=== PATIENT | female | born 1940 | race Caucasian/White ===

== ENCOUNTER 2017-02-09 10:07 | Day surgery (SDC) | payer OTHER ==
[2017-02-08 12:41] VITALS: BMI 23.8
[2017-02-09 11:05] LABS: BASOPHIL 1.1 % (0-2.0); EOSINOPHIL 1.8 % (0-4.5); MCH 29.9 pg (25.7-33.7); MCHC 33.5 g/dl (32.0-36.0); MEAN CELL VOLUME 89.4 fl (80-96); MEAN PLT VOLUME 8.5 fl (7.5-11.1); NEUTROPHILS 62.7 % (42.8-82.8); PLATELET COUNT 257 K/MM3 (134-434); RDW 13.7 % (11.6-15.6); WHITE BLOOD COUNT 7.4 K/mm3 (4.0-10.0)
[2017-02-09 11:24] VITALS: TEMP 98.5
[2017-02-09 11:32] LABS: INR 0.97 (0.82-1.09); PROTHROMBIN TIME (PATIENT) 10.7 SEC (9.98-11.88)
[2017-02-09] MEDS ORDERED: ACETAMINOPHEN 325 MG TABLET (FP) PO ONE (12:40)
[2017-02-09 15:15] VITALS: BP 122/77; PULSE 89
--- NOTE | 2017-02-11 15:24 | PATH ---
Surgical Pathology Report Patient Name: MYRNA TRACEY [facility]. Rec. #: [id number] /Age/Gender: 1940 (Age: 76) / F Account: [id number] Location: RADIOLOGY Taken: 02/09/2017 Received: 02/09/2017 Reported: 02/11/2017 Physicians: Joshua Vega M.D. Santiago Green M.D. Specimen(s) Received LEFT LUNG BIOPSY Clinical History Left lung mass Final Diagnosis LUNG, LEFT, CT GUIDED CORE BIOPSY: NON-SMALL CELL CARCINOMA, MOST SONSISTENTWITH SQUAMOUS CELL CARCINOMA, MODERATELY DIFFERENTIATED (SEE COMMENT). Comment: Immunohistochemical stains performed and interpreted at [facility] show the tumor cells are positive for p63 immunostain; TTF1 and CK7 immunostain highlights focal glandular-like structures; an additional immunohistochemical stain for p40 performed at [place], [place] ([id number]) and interpreted at [facility] is positive in tumor cells. The morphologic findings and immune profile was non-small cell carcinoma, most consistent with squamous cell carcinoma, moderately differentiated. Comment: The case was discussed with Dr. Truong on 02/11/17. PD-L1 (Keytruda) IHC is pending; results will be reported in an addendum. Electronically Signed Сергей Parks M.D. Addendum Reported: 02/16/2017 Addendum Diagnosis PD-L1 (Keytruda) IHC, Clone 22C3 Pharm Dx performed and interpreted at [facility] [place], [place] ([id number]) Result: PD-L1 (Keytruda) TPS: 0% (No Expression) Reference Range: TPS=Tumor Proportion Score (% of at least 100 viable tumor cells showing complete or partial membrane staining at =1+) TPS< 1% =No Expression TPS 1-49% =Low Expression. TPS =50% =High Expression. The PD-L1, 22C3 pharmDx is FDA approved for use in the detection of PD-L1 in formalin-fixed paraffin-embedded non-small cell lung carcinoma using the [employer] platform. The assay is indicated as an aid in identifying NSCLC patients for treatment with Keytruda (pembrolizumab). Сергей Charly, M.D. Gross Description Received in formalin labeled "lung biopsy" are 3 whitley, cylindrical portions of soft tissue ranging from 1.0-1.5 cm in length and averaging 0.1 cm in diameter. The specimens are submitted in toto in one cassette. 02/09/201702/09/2017
== END 2017-02-09 15:15 | disposition home or self-care (01) ==
LOC: JRADIR 10:07
PROVIDERS: ATTEND Family Medicine
PROC: 0BBL3ZX Excision of Left Lung, Percutaneous Approach, Diagnostic (ICD-10-PCS; principal; 2017-02-09)
PROC: BB28ZZZ Computerized Tomography (CT Scan) of Left Tracheobronchial Tree (ICD-10-PCS; 2017-02-09)
DX: C34.92 Malignant neoplasm of unspecified part of left bronchus or lung (principal)
CPT/HCPCS: 32405; 36415; 71010-TC; 76098-TC; 77012-TC; 85025; 85610; 87899; 88305-TC; 88341-TC; 88342-TC

== ENCOUNTER 2017-02-22 10:07 | Inpatient (IN) | payer OTHER ==
--- NOTE | 2017-02-22 10:23 | PDOC ---
History of Present Illness - General Chief Complaint: Shortness of Breath Stated Complaint: SOB (PCP SENT) Time Seen by Provider: 02/22/17 10:21 - History of Present Illness Initial Comments: 02/22/17 10:22 Ms. Mckeon is a 76 year old female, with a significant past medical history of, who presents to the emergency department per PCP for admit to med surg for lung surgery to remove malignant tumor /mass found on biopsy. Additionally she has a stable 5.7 cm AAA. The patient denies chest pain, shortness of breath, headache and dizziness. Denies fever, chills, nausea, vomit, diarrhea and constipation. Denies dysuria, frequency, urgency and hematuria. Allergies: NKDA Past surgical history: Biopsy for lung mass Social history: 90+ smoking pack year history PMD - Viet Hudson Past History - Past Medical History Allergies/Adverse Reactions: Allergies Allergy/AdvReac Type Severity Reaction Status Date / Time No Known Allergies Allergy Verified 02/22/17 10:14 Home Medications: Ambulatory Orders Ranitidine [Zantac] 150 mg PO DAILY #0 tablet 06/04/12 Acetaminophen [Tylenol] 325 mg PO PRN PRN 02/08/17 Amlodipine Besylate 10 mg PO DAILY 02/08/17 Umeclidinium Brm/Vilanterol Tr [Anoro Ellipta 62.5-25 Mcg INH] 1 each IH DAILY 02/08/17 Anemia: Yes Asthma: No Cancer: Yes Cardiac Disorders: Yes (TACHYCARDIA ONCE;BBB) CVA: No COPD: Yes Dementia: No Diabetes: No GI Disorders: Yes (DIVERTICULITIS) Disorders: No HTN: Yes Hypercholesterolemia: Yes Liver Disease: No Suicide Attempt (Hx): No Seizures: No Thyroid Disease: No - Surgical History Abdominal Surgery: No Appendectomy: No Cardiac Surgery: No Cholecystectomy: No Lung Surgery: No Neurologic Surgery: No Orthopedic Surgery: No - Immunization History Td Vaccination: Yes Immunization Up to Date: Yes - Psycho/Social/Smoking Cessation Hx Anxiety: No Suicidal Ideation: No Smoking Status: Yes Smoking History: Current every day smoker Have you smoked in the past 12 months: Yes Number of Cigarettes Smoked Daily: 5 If you are a former smoker, when did you quit?: 1 week ago Information on smoking cessation initiated: No 'Breaking Loose' booklet given: 02/08/17 Hx Alcohol Use: Yes Drug/Substance Use Hx: No Substance Use Type: Alcohol Hx Substance Use Treatment: No Review of Systems - Review of Systems Comments:: 02/22/17 10:22 GENERAL/CONSTITUTIONAL: +Some weakness. No fever or chills. HEAD, EYES, EARS, NOSE AND THROAT: No change in vision. No ear pain or discharge. No sore throat. CARDIOVASCULAR: No chest pain or shortness of breath RESPIRATORY: No cough, wheezing, or hemoptysis. GASTROINTESTINAL: +Some recent nausea, vomiting, with diarrhea yesterday. No constipation. GENITOURINARY: No dysuria, frequency, or change in urination. MUSCULOSKELETAL: No joint or muscle swelling or pain. No neck or back pain. SKIN: No rash NEUROLOGIC: No headache, vertigo, loss of consciousness, or change in strength/ sensation. ENDOCRINE: No increased thirst. No abnormal weight change HEMATOLOGIC/LYMPHATIC: No anemia, easy bleeding, or history of blood clots. ALLERGIC/IMMUNOLOGIC: No hives or skin allergy. *Physical Exam - Vital Signs Last Vital Signs Temp Pulse Resp BP Pulse Ox 97.7 F 78 18 117/54 98 02/22/17 10:09 02/22/17 10:09 02/22/17 10:09 02/22/17 10:09 02/22/17 10:09 - Physical Exam Comments: 02/22/17 10:22 GENERAL: Awake, alert, and fully oriented, in no acute distress HEAD: No signs of trauma, normocephalic, atraumatic EYES: PERRLA, EOMI, sclera anicteric, conjunctiva clear ENT: Auricles normal inspection, hearing grossly normal, nares patent, oropharynx clear without exudates. Moist mucosa NECK: Normal ROM, supple, no lymphadenopathy, JVD, or masses LUNGS: No distress, speaks full sentences, clear to auscultation bilaterally HEART: Regular rate and rhythm, normal S1 and S2, no murmurs, rubs or gallops, peripheral pulses normal and equal bilaterally. ABDOMEN: Soft, nontender, normoactive bowel sounds. No guarding, no rebound. No masses EXTREMITIES: Normal inspection, Normal range of motion, no edema. No clubbing or cyanosis. NEUROLOGICAL: Cranial nerves II through XII grossly intact. Normal speech, normal gait, no focal sensorimotor deficits SKIN: Warm, Dry, normal turgor, no rashes or lesions noted. Medical Decision Making - Medical Decision Making 02/22/17 10:54 Ms. Mckeon presents for admission from Dr. Hudson for care for malignant lung mass and 5.7cm AAA. Tristan requests workup of CBC/CMP/PT/INR/Type and Screen/ Echocardiogram. Will work-up as requested and admit. *DC/Admit/Observation/Transfer Diagnosis at time of Disposition: Malignant neoplasm of lung Qualifiers: Laterality: unspecified laterality Lung location: unspecified part of lung Qualified Code(s): C34.90 - Malignant neoplasm of unspecified part of unspecified bronchus or lung - Discharge Dispostion Admit: Yes - Attestations Physician Attestion: 02/22/17 10:22 I, Dr. Bubba Patricio, attest that this document has been prepared under my direction and personally reviewed by me in its entirety. I further attest, that it accurately reflects all work, treatment, procedures and medical decision -making performed by me.
[2017-02-22 11:27] LABS: BASOPHIL 0.5 % (0-2.0); EOSINOPHIL 1.2 % (0-4.5); MCHC 33.2 g/dl (32.0-36.0); MEAN CELL VOLUME 90.6 fl (80-96); MEAN PLT VOLUME 7.7 fl (7.5-11.1); NEUTROPHILS 68.5 % (42.8-82.8); PLATELET COUNT 208 K/MM3 (134-434); RDW 13.9 % (11.6-15.6); WHITE BLOOD COUNT 8.5 K/mm3 (4.0-10.0)
[2017-02-22 11:42] LABS: INR 0.95 (0.82-1.09); PROTHROMBIN TIME (PATIENT) 10.4 SEC (9.98-11.88)
[2017-02-22 11:44] LABS: ACTIVATED PTT 28.2 SECONDS (26.9-34.4)
[2017-02-22 11:49] LABS: ALBUMIN 3.7 g/dl (3.4-5.0); ANION GAP 10 (8-16); CALCIUM 8.7 mg/dL (8.5-10.1); CO2 25 mmol/L (21-32); CREATININE 3.3 mg/dL (0.55-1.02); GLUCOSE,RANDOM 102 mg/dL (74-106); SGOT/AST 10 U/L (15-37); SGPT/ALT 16 U/L (12-78)
[2017-02-22 11:51] LABS: ALK PHOS 90 U/L (45-117); BILIRUBIN,TOTAL 0.4 mg/dL (0.2-1.0); TOT PROT 7.5 g/dl (6.4-8.2)
[2017-02-22 12:28] VITALS: BMI 23.7
--- NOTE | 2017-02-22 12:33 | PDOC ---
Attending Attestation - Resident Resident Name: Bubba Patricio - ED Attending Attestation I have performed the following: I have examined & evaluated the patient, The case was reviewed & discussed with the resident, I agree w/resident's findings & plan, Exceptions are as noted - HPI HPI: 02/22/17 12:29 76 F with h/o AAA, HTN, CKD, recently diagnosed lung mass, presents to ER for admission to hospital for lung surgery. Pt denies CP/SOB. Denies F/C. Denies any complaints today. - Physicial Exam PE: 02/22/17 12:32 "GENERAL: Awake, alert, and fully oriented, in no acute distress HEAD: No signs of trauma EYES: PERRLA, EOMI, sclera anicteric, conjunctiva clear ENT: Auricles normal inspection, hearing grossly normal, nares patent, oropharynx clear without exudates. Moist mucosa NECK: Normal ROM, supple, no lymphadenopathy, JVD, or masses LUNGS: Breath sounds equal, clear to auscultation bilaterally. No wheezes, and no crackles HEART: Regular rate and rhythm, normal S1 and S2, no murmurs, rubs or gallops ABDOMEN: Soft, nontender, normoactive bowel sounds. No guarding, no rebound. No masses EXTREMITIES: Normal range of motion, no edema. No clubbing or cyanosis. No cords, erythema, or tenderness NEUROLOGICAL: Cranial nerves II through XII grossly intact. Normal speech, normal gait SKIN: Warm, Dry, normal turgor, no rashes or lesions noted. " - Medical Decision Making 02/22/17 12:32 76 F sent in for admission for resection of lung mass. To be admitted to Dr. Truong. - Labs - Admit
[2017-02-22] MEDS ORDERED: ALBUTEROL SO4 2.5/IPRATROPIUM 0.5 INH SOL 3 ML VIAL.NEB. NEB PRN (14:47)
--- NOTE | 2017-02-22 14:54 | HP ---
Admitting History and Physical - Primary Care Physician PCP: Kanchan Truong - Admission Chief Complaint: LUNG MASS SQUAMOUS CELL, ABD ANEURYSM History of Present Illness: 76 Y/O FEMALE WITH HISTORY OF COPD, CHRONIC RENAL FAILURE, ABD ANEURYSM FOUND WITH LUNG MASS LEFT SIDED THAT WAS BIOPSIED AND RETURNED A SQUAMOUS CELL CANCER. ADMITTED FOR POSSIBLE LUNG RESECTION AND ONCOLOGY WORKUP. History Source: Patient, Medical Record - Past Medical History Cardiovascular: Yes: Aneurysm Pulmonary: Yes: COPD, Other (LUNG MASS) Gastrointestinal: Yes: GERD Renal/: Yes: Renal Failure Rheumatology: Yes: Other - Smoking History Smoking history: Current every day smoker Have you smoked in the past 12 months: Yes Aproximately how many cigarettes per day: 5 If you are a former smoker, when did you quit?: 1 week ago - Alcohol/Substance Use Hx Alcohol Use: Yes Home Medications - Allergies Allergies/Adverse Reactions: Allergies Allergy/AdvReac Type Severity Reaction Status Date / Time No Known Allergies Allergy Verified 02/22/17 10:14 - Home Medications Home Medications: Ambulatory Orders Acetaminophen [Tylenol] 325 mg PO ASDIR PRN 02/08/17 Amlodipine Besylate 10 mg PO HS 02/08/17 Umeclidinium Brm/Vilanterol Tr [Anoro Ellipta 62.5-25 Mcg INH] 1 each IH DAILY 02/08/17 Ranitidine [Zantac] 150 mg PO DAILY PRN 02/22/17 Review of Systems - Review of Systems Constitutional: reports: Weakness Eyes: reports: No Symptoms HENT: reports: No Symptoms Neck: reports: No Symptoms Cardiovascular: reports: No Symptoms Respiratory: reports: Cough, SOB Gastrointestinal: reports: No Symptoms Genitourinary: reports: No Symptoms Musculoskeletal: reports: No Symptoms Integumentary: reports: No Symptoms Neurological: reports: No Symptoms Endocrine: reports: No Symptoms Hematology/Lymphatic: reports: No Symptoms Physical Examination Vital Signs: Vital Signs Temperature 97.7 F 02/22/17 13:00 Pulse Rate 72 02/22/17 13:00 Respiratory Rate 18 02/22/17 13:00 Blood Pressure 119/49 02/22/17 13:00 O2 Sat by Pulse Oximetry (%) 96 02/22/17 13:00 Constitutional: Yes: Mild Distress Eyes: Yes: WNL HENT: Yes: WNL Neck: Yes: WNL Cardiovascular: Yes: Murmur Respiratory: Yes: Diminished Gastrointestinal: Yes: WNL Renal/: Yes: WNL Musculoskeletal: Yes: Muscle Weakness Extremities: Yes: WNL Edema: No Peripheral Pulses WNL: Yes Integumentary: Yes: WNL Wound/Incision: Yes: Clean/Dry Neurological: Yes: WNL ...Motor Strength: WNL Psychiatric: Yes: WNL Imaging - Results Cat Scan: Report Reviewed Problem List - Problems (1) Lung malignancy Code(s): C34.90 - MALIGNANT NEOPLASM OF UNSP PART OF UNSP BRONCHUS OR LUNG Qualifiers: Laterality: unspecified laterality Lung location: unspecified part of lung Qualified Code(s): C34.90 - Malignant neoplasm of unspecified part of unspecified bronchus or lung (2) COPD (chronic obstructive pulmonary disease) Code(s): J44.9 - CHRONIC OBSTRUCTIVE PULMONARY DISEASE, UNSPECIFIED Qualifiers : COPD type: emphysema (3) Chronic renal disease Code(s): N18.9 - CHRONIC KIDNEY DISEASE, UNSPECIFIED Qualifiers: Chronic kidney disease stage: stage 5, not on chronic dialysis Qualified Code(s): N18.5 - Chronic kidney disease, stage 5 (4) Abdominal aneurysm Code(s): I71.4 - ABDOMINAL AORTIC ANEURYSM, WITHOUT RUPTURE (5) Hypertension Code(s): I10 - ESSENTIAL (PRIMARY) HYPERTENSION Qualifiers: Hypertension type: essential hypertension Qualified Code(s): I10 - Essential (primary) hypertension (6) Tobacco use Code(s): Z72.0 - TOBACCO USE Assessment/Plan CTS REFERRAL FOR POSSIBLE RESECTION COPY OF BIOPSY RESULT NEEDED, SHOWED SQUAMOUS CELL ONCOLOGY EVAL RENAL EVAL ECHO FOR CARDIOLOGY CLEARANCE VASC SX FOR ANEURYSM
--- NOTE | 2017-02-22 16:00 | PN ---
Progress Note (short form) - Note Progress Note: PULMONARY CONSULTATION DICTATED 02/22/17 IMP OSVALDO MASS +SQUAMOUS CELL CA COPD AAA CKD HTN GERD PLAN INHALED BRONCHODILATORS METASTATIC W/U PET SCAN BRAIN MRI PFTS O2 SAT AT REST AND POST EXERCISE ON RA DR CRUZ Problem List - Problems (1) Abdominal aneurysm Code(s): I71.4 - ABDOMINAL AORTIC ANEURYSM, WITHOUT RUPTURE (2) COPD (chronic obstructive pulmonary disease) Code(s): J44.9 - CHRONIC OBSTRUCTIVE PULMONARY DISEASE, UNSPECIFIED Qualifiers : COPD type: emphysema (3) Chronic renal disease Code(s): N18.9 - CHRONIC KIDNEY DISEASE, UNSPECIFIED Qualifiers: Chronic kidney disease stage: stage 5, not on chronic dialysis Qualified Code(s): N18.5 - Chronic kidney disease, stage 5 (4) Hypertension Code(s): I10 - ESSENTIAL (PRIMARY) HYPERTENSION Qualifiers: Hypertension type: essential hypertension Qualified Code(s): I10 - Essential (primary) hypertension (5) Lung malignancy Code(s): C34.90 - MALIGNANT NEOPLASM OF UNSP PART OF UNSP BRONCHUS OR LUNG Qualifiers: Laterality: unspecified laterality Lung location: unspecified part of lung Qualified Code(s): C34.90 - Malignant neoplasm of unspecified part of unspecified bronchus or lung (6) Tobacco use Code(s): Z72.0 - TOBACCO USE
[2017-02-22] MEDS: ACETAMINOPHEN 325 MG TABLET (FP) PO PRN (16:04)
--- NOTE | 2017-02-22 17:22 | CONSULT ---
Consult - text type - Consultation Consultation Note: Thoracic Surgery Consultation: Pt seen with OSVALDO SCC 3cm mass s/p biopsy. Has PMH of ESRD (near HD), still smoking (>100 pack-years), AAA >5cm, but exercise tolerance would likely allow her to tolerate left upper lobectomy. No weight loss or hemoptysis. VSS/AF WD/WN ASA Clear lungs No abd scars Imp/Plan: OSVALDO cancer without obvious LUIS FELIPE --Needs PFTs --Cardiac w/u and clearance --Would recommend PET scan --Moderate risk for complications due to recent active smoking and ESRD --Will d/w Dr. Truong.
--- NOTE | 2017-02-22 18:57 | EKG ---
Test Reason : Blood Pressure : / mmHG Vent. Rate : 072 BPM Atrial Rate : 072 BPM P-R Int : 142 ms QRS Dur : 128 ms QT Int : 404 ms P-R-T Axes : 069 064 044 degrees QTc Int : 442 ms SINUS RHYTHM WITH OCCASIONAL PREMATURE VENTRICULAR COMPLEXES RIGHT BUNDLE BRANCH BLOCK ABNORMAL ECG WHEN COMPARED WITH ECG OF 03-JUN-2012 08:38, SINUS RHYTHM HAS REPLACED ATRIAL FIBRILLATION VENT. RATE HAS DECREASED BY 45 BPM T WAVE INVERSION NOW EVIDENT IN ANTERIOR LEADS Confirmed by KINGSTON DOLL MD ([id number]) on 02/22/2017 6:57:03 PM Referred By: Confirmed By:KINGSTON DOLL MD
--- NOTE | 2017-02-22 19:19 | CONSULT ---
Consult - text type - Consultation Consultation Note: Ms. Mcekon is a 76 year old female, with a significant past medical history of, CKD, AAA, who comes in with OSVALDO mass The patient denies chest pain, shortness of breath, headache and dizziness. Denies fever, chills, nausea, vomit, diarrhea and constipation. Denies dysuria, frequency, urgency and hematuria. c/o rib cage pain Allergies: NKDA Past surgical history: Biopsy for lung mass Social history: 90+ smoking pack year history PMH Anemia Tachycardia COPD Diverticulitis HTN Hypercholesterolemia Allergies/Adverse Reactions: Allergies Allergy/AdvReac Type Severity Reaction Status Date / Time No Known Allergies Allergy Verified 02/22/17 10:14 Home Medications: Ambulatory Orders Ranitidine [Zantac] 150 mg PO DAILY #0 tablet 06/04/12 Acetaminophen [Tylenol] 325 mg PO PRN PRN 02/08/17 Amlodipine Besylate 10 mg PO DAILY 02/08/17 Umeclidinium Brm/Vilanterol Tr [Anoro Ellipta 62.5-25 Mcg INH] 1 each IH DAILY 02/08/17 - Psycho/Social/Smoking Cessation Hx Smoking Status: Yes Smoking History: Current every day smoker - Vital Signs Last Vital Signs Temp Pulse Resp BP Pulse Ox 97.7 F 78 18 117/54 98 02/22/17 10:09 02/22/17 10:09 02/22/17 10:09 02/22/17 10:09 02/22/17 10:09 Cor: RSR, No murmurs, No gallops Lungs: Clear to P&A Abd: Soft, Normal bowel sounds, No organomegaly Ext:No significant edema Skin: No rashes, Integument intact Abnormal Lab Results 02/22/17 10:57 BUN 45 H D Creatinine 3.3 H D AST 10 L D Active Medications Acetaminophen (Tylenol -) 650 mg PO Q6H PRN PRN Reason: FEVER OR PAIN Last Admin: 02/22/17 16:04 Dose: 650 mg Albuterol/Ipratropium (Duoneb -) 1 amp NEB Q6H PRN PRN Reason: SHORTNESS OF BREATH Amlodipine Besylate (Norvasc -) 5 mg PO DAILY ANNA Ranitidine HCl (Zantac -) 150 mg PO BID [facility] Home Medication List Medication Instructions Recorded Confirmed Type Acetaminophen [Tylenol] 325 mg PO ASDIR PRN 02/08/17 02/22/17 History Amlodipine Besylate 10 mg PO HS 02/08/17 02/22/17 History Umeclidinium Brm/Vilanterol Tr 1 each IH DAILY 02/08/17 02/22/17 History [Anoro Ellipta 62.5-25 Mcg INH] Ranitidine [Zantac] 150 mg PO DAILY PRN 02/22/17 02/22/17 History Active Medications Generic Name Dose Route Start Last Admin Trade Name Freq PRN Reason Stop Dose Admin Acetaminophen 650 mg 02/22/17 14:47 02/22/17 16:04 Tylenol - PO 650 mg Q6H PRN Administration FEVER OR PAIN Albuterol/Ipratropium 1 amp 02/22/17 14:47 Duoneb - NEB Q6H PRN SHORTNESS OF BREATH Amlodipine Besylate 5 mg 02/23/17 10:00 Norvasc - PO DAILY ANNA Ranitidine HCl 150 mg 02/22/17 22:00 Zantac - PO BID ANNA A/P 76 y/o patient withCKD, AAA,smoker, OSVALDO mass--3cm,squamous cell lung cancer Will need staging w/u -- PET-CT, bone scan, MRI brain--needs open MRI will need PFTs/stress test mri brain--noncontrast--open mri, as outpatient will need renal f/u vascular consult discussed with patient
--- NOTE | 2017-02-22 19:49 | PN ---
Progress Note (short form) - Note Progress Note: VAscular Surgery Pt well known to our service Pt with 5.4cm AAA However recently diagnosed with Lung CA Will need lobectomy first. CAn wait to fix AAA right now. Low risk for rupture. Lung CA more urgent at this time and life threatening. Josef Qureshi DO
--- NOTE | 2017-02-22 22:03 | CONS ---
DATE OF CONSULTATION: 02/22/2017 PULMONARY CONSULTATION REFERRING PHYSICIAN: Kanchan Truong M.D. HISTORY OF PRESENT ILLNESS: The patient is a 76-year-old white female with a past medical history of COPD, chronic kidney disease, recurrent renal failure, history of abdominal aortic aneurysm, recently diagnosed lung CA left upper lobe, biopsy consistent with squamous cell, GERD, admitted to [facility] for further evaluation of lung mass. Patient the day before was recently noted on chest x-ray to have left upper lobe mass. She underwent a CAT scan which confirmed the diagnosis. She underwent CT biopsy which was positive for squamous cell. Patient complains of shortness of breath with exertion up inclines and rapid pace. Patient has history of tobacco use many years, quit 1 day ago. She has a cough which is nonproductive. She denies any hemoptysis. She denies any fevers, weight loss. Does have occasional night sweats. Denies any chest pains or palpitations. There is no history of occupational exposure to chemicals or fumes. There is no history of DVT or PE in the past. PAST MEDICAL HISTORY: Again includes COPD, chronic renal failure, abdominal aortic aneurysm which his increased in size, left upper lobe mass, GERD, bronchogenic carcinoma squamous cell type. REVIEW OF SYSTEMS: No orthopnea. Positive dyspnea on exertion. Positive cough. No chest pain, no palpitation, no fever, no weight loss. Positive night sweats. No abdominal pain. No lower extremity edema. MEDICATION: Prior to admission include , amlodipine, Tylenol, and Zantac. PHYSICAL EXAMINATION: General: The patient is a well-developed, well-nourished female, awake, alert, in no acute distress. Vital signs: She is afebrile. Blood pressure 119/49, respiratory rate 18, O2 saturation 96% on room air. HEENT: Head is normocephalic, atraumatic. Neck: Supple. Heart: Regular. S1, S2. Chest: Clear. Abdomen: Soft. Bowel sounds positive. Extremities: No cyanosis, edema. LABORATORY: BUN 45, creatinine 3.3. WBC 8.5, hemoglobin 13.2, hematocrit 39.9 with platelet count of 208,000. INR is 0.95. Chest x-ray left upper lobe mass. IMPRESSION: 1. Bronchogenic left upper lobe mass, consistent with bronchogenic carcinoma, squamous cell type. 2. Chronic obstructive lung disease. 3. Abdominal aortic aneurysm. 4. Chronic renal failure. 5. Hypertension. 6. Gastroesophageal reflux disease. PLAN: The patient needs metastatic workup. Recommend possible PET scan, possible MRI of the brain also. PFTs with diffusion capacity. Monitor renal function. Continue inhaled bronchodilators. WEI CRUZ M.D. [id number] MTDD
[2017-02-22] MEDS: amLODIPine BESYLATE 5 MG TABLET (FP) PO SCH (22:14)
[2017-02-22] MEDS: RANITIDINE HCL 150 MG TABLET (FP) PO SCH ×2 (22:14→22:15)
[2017-02-22] MEDS: LORazepam 0.5 MG TABLET PO PRN (23:41)
[2017-02-23] MEDS: RANITIDINE HCL 150 MG TABLET (FP) PO SCH ×3 (09:21→21:26)
[2017-02-23] MEDS: ACETAMINOPHEN 325 MG TABLET (FP) PO PRN (09:22)
[2017-02-23] MEDS ORDERED: amLODIPine BESYLATE 5 MG TABLET (FP) PO SCH (10:00)
--- NOTE | 2017-02-23 13:42 | CON.NEP ---
Consult Consult Specialty:: Nephrology Referred by:: Dr Mccall Reason for Consultation:: ckd - History of Present Illness Chief Complaint: admitted for cancer surgery History of Present Illness: This is a 76 year old woman who is well known to me from several office visists who presented for lung resection since she has a squamous cell ca ( had a recent biopsy of a lesion). She has hypertension and aaa. She has had ckd for many years and it recently worsened and then stabilized again. She had been taking nsaids which may have caused the deterioration. Her AAA is growing as well. - History Source History Provided By: Patient, Medical Record Limitations to Obtaining History: No Limitations - Past Medical History Cardio/Vascular: Yes: Aneurysm Pulmonary: Yes: COPD, Other (LUNG MASS) Gastrointestinal: Yes: GERD Renal/: Yes: Renal Failure Rheumatology: Yes: Other - Alcohol/Substance Use Hx Alcohol Use: Yes - Smoking History Smoking history: Current every day smoker Have you smoked in the past 12 months: Yes Aproximately how many cigarettes per day: 5 If you are a former smoker, when did you quit?: 1 week ago Home Medications - Allergies Allergies/Adverse Reactions: Allergies Allergy/AdvReac Type Severity Reaction Status Date / Time No Known Allergies Allergy Verified 02/22/17 10:14 - Home Medications Home Medications: Ambulatory Orders Acetaminophen [Tylenol] 325 mg PO ASDIR PRN 02/08/17 Amlodipine Besylate 10 mg PO HS 02/08/17 Umeclidinium Brm/Vilanterol Tr [Anoro Ellipta 62.5-25 Mcg INH] 1 each IH DAILY 02/08/17 Ranitidine [Zantac] 150 mg PO DAILY PRN 02/22/17 Review of Systems - Review of Systems Constitutional: reports: Unintentional Wgt. Loss Eyes: reports: No Symptoms HENT: reports: No Symptoms Neck: reports: No Symptoms Cardiovascular: reports: Shortness of Breath Respiratory: reports: Cough Gastrointestinal: reports: No Symptoms Genitourinary: reports: No Symptoms Breasts: reports: No Symptoms Reported Musculoskeletal: reports: No Symptoms Integumentary: reports: No Symptoms Neurological: reports: No Symptoms Endocrine: reports: No Symptoms Hematology/Lymphatic: reports: No Symptoms Psychiatric: reports: No Symptoms Nephrology Consult - Height Height: 5 ft 6 in - Weight Weight: 147 lb - BMI Body Mass Index (BMI): 23.7 - Lab Results CBC,BMP: CBC, BMP 02/22/17 10:57 02/22/17 10:57 Anion Gap: Anion Gap Anion Gap 10 (8-16) 02/22/17 10:57 - Imaging Chest X-ray: Report Reviewed - Physical Examination Vital Signs: Vital Signs Temperature 98.3 F 02/23/17 11:39 Pulse Rate 69 02/23/17 11:39 Respiratory Rate 18 02/23/17 11:39 Blood Pressure 133/59 02/23/17 11:39 O2 Sat by Pulse Oximetry (%) 97 02/23/17 09:00 Constitutional: Yes: Thin Eyes: Yes: Conjunctiva Clear HENT: Yes: Atraumatic, Normocephalic Neck: Yes: Supple, Trachea Midline Cardiovascular: Yes: Regular Rate and Rhythm Respiratory: Yes: Regular, CTA Bilaterally Gastrointestinal: Yes: Normal Bowel Sounds, Soft Renal/: Yes: WNL Edema: No Integumentary: Yes: WNL Wound/Incision: Yes: Clean/Dry Neurological: Yes: Alert, Oriented Psychiatric: Yes: Alert, Oriented Assessment/Plan IMPRESSION COLE improved ckd AAA enlarging PLAN would continue current management await work up- cardiology/pulmonary avoid nephrotoxins and hypotension would hydrate perioperatively MV
--- NOTE | 2017-02-23 14:12 | CON.CARD ---
Consult Consult Specialty:: Cardiology Referred by:: Alexi Reason for Consultation:: preop - History of Present Illness Chief Complaint: lung cancer on biopsy History of Present Illness: Ms. Mckeon is a 76 year old with a pmhx of copd/tobacco use, CKD, known AAA 5.4cm, and h/o paroxysmal afib/flutter in 2011 who was recently found to have a lung mass which demonstrated squamous cell cancer on biopsy now admitted for oncology work up and possible lung resection. Ms. Mckeon denies any chest pain. No palpitations since 2011. No pnd, orthopnea, or le edema at this time. Reports that she is able to walk 3 blocks to buy cigarrettes every day with out any issues and also walks 3 flights of stairs daily to visit a friend without stopping or any chest pain on exertion. - History Source History Provided By: Patient, Medical Record - Past Medical History Cardio/Vascular: Yes: AFIB, Aneurysm, HTN Pulmonary: Yes: COPD, Other (LUNG MASS) Gastrointestinal: Yes: GERD Renal/: Yes: Renal Failure Rheumatology: Yes: Other - Alcohol/Substance Use Hx Alcohol Use: Yes - Smoking History Smoking history: Current every day smoker Have you smoked in the past 12 months: Yes Aproximately how many cigarettes per day: 5 If you are a former smoker, when did you quit?: 1 week ago Home Medications - Allergies Allergies/Adverse Reactions: Allergies Allergy/AdvReac Type Severity Reaction Status Date / Time No Known Allergies Allergy Verified 02/22/17 10:14 - Home Medications Home Medications: Ambulatory Orders Acetaminophen [Tylenol] 325 mg PO ASDIR PRN 02/08/17 Amlodipine Besylate 10 mg PO HS 02/08/17 Umeclidinium Brm/Vilanterol Tr [Anoro Ellipta 62.5-25 Mcg INH] 1 each IH DAILY 02/08/17 Ranitidine [Zantac] 150 mg PO DAILY PRN 02/22/17 Vital Signs: Vital Signs Temperature 98.3 F 02/23/17 11:39 Pulse Rate 69 02/23/17 11:39 Respiratory Rate 18 02/23/17 11:39 Blood Pressure 133/59 02/23/17 11:39 O2 Sat by Pulse Oximetry (%) 97 02/23/17 09:00 Constitutional: Yes: No Distress Neck: Yes: Supple Respiratory: Yes: Wheezes (minimal b/l exp wheeze) Gastrointestinal: Yes: WNL Cardiovascular: Yes: Regular Rate and Rhythm JVD: No Carotid Bruit: No Heart Sounds: Yes: S1, S2 Murmur: No: Systolic Murmur Edema: No - Other Data Labs, Other Data: INR, PTT INR 0.95 (0.82-1.09) 02/22/17 10:57 sinus rhythm at 72bpm, nl axis, RBBB, pvc's, T wave inversions V3-5 Echo: Pending Imaging - Results EKG: Image Reviewed Problem List - Problems (1) Hypertension Code(s): I10 - ESSENTIAL (PRIMARY) HYPERTENSION Qualifiers: Hypertension type: essential hypertension Qualified Code(s): I10 - Essential (primary) hypertension (2) Lung malignancy Code(s): C34.90 - MALIGNANT NEOPLASM OF UNSP PART OF UNSP BRONCHUS OR LUNG Qualifiers: Laterality: unspecified laterality Lung location: unspecified part of lung Qualified Code(s): C34.90 - Malignant neoplasm of unspecified part of unspecified bronchus or lung Assessment/Plan Ms. Mckeon is a 76 year old with a pmhx of copd/tobacco use, CKD, known AAA 5.4cm, and h/o paroxysmal afib/flutter in 2012 who was recently found to have a lung mass which demonstrated squamous cell cancer on biopsy now admitted for oncology work up and possible lung resection. 1) Lung cancer Possible need for lung resection for squamous cell lung cancer on biopsy. Follow up recommendations as per oncology and pulmonary. From cardiac standpoint patient denies any significant cardiac symptoms. No chest pain, exercise tolerance is 3 flights of stairs chronic. No palpitations/ syncope/or signs of chf on exam. No direct cardiac contraindications to surgery. Echocardiogram done and results pending. Would not delay Lung CA surgery for any further cardiac testing at this time. If any severe abnormalities on echocardiogram, will risk stratify based on these findings. 2) AAA seen by vascular surgery and will follow. No indication as per vascular Sx for intervention prior to lung surgery 3) ?afib/flutter -Holter report in 2012 interpreted as afib/flutter. Patient reports that this issue resolved after she stopped zoloft and never was on a blood thinner or any medication for this. Would not start any new medication acutely for this issue. Will follow as an outpatient after surgery and discuss.
--- NOTE | 2017-02-23 15:17 | PN ---
Progress Note (short form) - Note Progress Note: PULMONARY AWAKE/ALERT VSS/AFEBRILE ANICTERIC CLEAR S1S2 BS+ NO EDEMA LABS/MEDS/NOTES/IMAGING REVIEWED IMP OSVALDO MASS +SQUAMOUS CELL CA COPD AAA CKD HTN GERD PLAN INHALED BRONCHODILATORS METASTATIC W/U PET SCAN BRAIN MRI PFTS O2 SAT AT REST Jayla ADHIKARI MD
--- NOTE | 2017-02-23 18:27 | PN ---
Progress Note (short form) - Note Progress Note: Patient seen and examined Discussed approach to staging with patient HEENT: APRYL, EOM Intact Oropharynx: No thrush, No mucositis, upper dentures, lower edentulous Neck: Supple Nodes: Without adenopathy Breasts: Without masses Cor: RSR, systolic murmur Lungs: rhonchi, diminished breath sounds Abd: Soft, Normal bowel sounds, No organomegaly Ext:No significant edema Skin: No rashes, Integument intact, no clubbing CBC, BMP 02/22/17 10:57 02/22/17 10:57 Current Medications Generic Name Dose Route Start Last Admin Trade Name Freq PRN Reason Stop Dose Admin Acetaminophen 650 mg 02/22/17 14:47 02/23/17 09:22 Tylenol - PO 650 mg Q6H PRN Administration FEVER OR PAIN Albuterol/Ipratropium 1 amp 02/22/17 14:47 Duoneb - NEB Q6H PRN SHORTNESS OF BREATH Amlodipine Besylate 5 mg 02/22/17 22:00 02/22/17 22:14 Norvasc - PO 5 mg HS ANNA Administration Lorazepam 0.5 mg 02/22/17 23:23 02/22/17 23:41 Ativan - PO 0.5 mg HS PRN Administration Ranitidine HCl 150 mg 02/22/17 22:00 02/23/17 09:21 Zantac - PO Not Given BID ANNA Impression: Squamous cell ca of left lung AAA COPD 100+ pack years HBP Plan: Needs- MRI brain (no contrast - kidney disease) PET//CT PFT's Last Vital Signs Temp Pulse Resp BP Pulse Ox 98.4 F 79 20 124/71 97 02/23/17 14:35 02/23/17 14:35 02/23/17 14:35 02/23/17 14:35 02/23/17 09:00 Depending on staging , and if not candidate for surgery a 3 cm lung lesion is the upper limit for stereotactic radiosurgery to lung. This may be best option for patient- based upon PFT's , ability to tolerate anesthesia , etc.
--- NOTE | 2017-02-23 19:50 | PN ---
Progress Note, Physician Chief Complaint: awake alert anxious for surgery - Current Medication List Current Medications: Active Medications Acetaminophen (Tylenol -) 650 mg PO Q6H PRN PRN Reason: FEVER OR PAIN Last Admin: 02/23/17 09:22 Dose: 650 mg Albuterol/Ipratropium (Duoneb -) 1 amp NEB Q6H PRN PRN Reason: SHORTNESS OF BREATH Amlodipine Besylate (Norvasc -) 5 mg PO HS ANNA Last Admin: 02/22/17 22:14 Dose: 5 mg Lorazepam (Ativan -) 0.5 mg PO HS PRN Last Admin: 02/22/17 23:41 Dose: 0.5 mg Ranitidine HCl (Zantac -) 150 mg PO BID ANNA Last Admin: 02/23/17 09:21 Dose: Not Given - Objective Vital Signs: Vital Signs Temperature 98.6 F 02/23/17 19:06 Pulse Rate 67 02/23/17 19:06 Respiratory Rate 18 02/23/17 19:06 Blood Pressure 137/73 02/23/17 19:06 O2 Sat by Pulse Oximetry (%) 97 02/23/17 09:00 Constitutional: Yes: Mild Distress Eyes: Yes: WNL HENT: Yes: WNL Neck: Yes: WNL Cardiovascular: Yes: WNL Respiratory: Yes: Cough, SOB Gastrointestinal: Yes: WNL Genitourinary: Yes: WNL Musculoskeletal: Yes: WNL Extremities: Yes: WNL Edema: No Peripheral Pulses WNL: Yes Integumentary: Yes: WNL Wound/Incision: Yes: Clean/Dry Neurological: Yes: WNL ...Motor Strength: WNL Psychiatric: Yes: WNL Labs: INR, PTT INR 0.95 (0.82-1.09) 02/22/17 10:57 Problem List - Problems (1) Lung malignancy Code(s): C34.90 - MALIGNANT NEOPLASM OF UNSP PART OF UNSP BRONCHUS OR LUNG Qualifiers: Laterality: unspecified laterality Lung location: unspecified part of lung Qualified Code(s): C34.90 - Malignant neoplasm of unspecified part of unspecified bronchus or lung (2) COPD (chronic obstructive pulmonary disease) Code(s): J44.9 - CHRONIC OBSTRUCTIVE PULMONARY DISEASE, UNSPECIFIED Qualifiers : COPD type: emphysema (3) Chronic renal disease Code(s): N18.9 - CHRONIC KIDNEY DISEASE, UNSPECIFIED Qualifiers: Chronic kidney disease stage: stage 5, not on chronic dialysis Qualified Code(s): N18.5 - Chronic kidney disease, stage 5 (4) Abdominal aneurysm Code(s): I71.4 - ABDOMINAL AORTIC ANEURYSM, WITHOUT RUPTURE (5) Hypertension Code(s): I10 - ESSENTIAL (PRIMARY) HYPERTENSION Qualifiers: Hypertension type: essential hypertension Qualified Code(s): I10 - Essential (primary) hypertension (6) Tobacco use Code(s): Z72.0 - TOBACCO USE Assessment/Plan metastatic workup in progress explained to patient she may need petscan first and open mri becdarian flower cant tolerate our closed mri here in the hospital. echo results pending oncology/cts/pulm/renal f/u appreciated
[2017-02-23] MEDS: amLODIPine BESYLATE 5 MG TABLET (FP) PO SCH (21:11)
[2017-02-23] MEDS: LORazepam 0.5 MG TABLET PO PRN (21:11)
[2017-02-24] MEDS: RANITIDINE HCL 150 MG TABLET (FP) PO SCH ×2 (09:30→22:00)
--- NOTE | 2017-02-24 09:34 | PN ---
Progress Note, Physician Chief Complaint: AWAKE ALERT ANXIOUS ABOUT MRI - Current Medication List Current Medications: Active Medications Acetaminophen (Tylenol -) 650 mg PO Q6H PRN PRN Reason: FEVER OR PAIN Last Admin: 02/23/17 09:22 Dose: 650 mg Albuterol/Ipratropium (Duoneb -) 1 amp NEB Q6H PRN PRN Reason: SHORTNESS OF BREATH Amlodipine Besylate (Norvasc -) 5 mg PO HS ANNA Last Admin: 02/23/17 21:11 Dose: 5 mg Lorazepam (Ativan -) 0.5 mg PO HS PRN Last Admin: 02/23/17 21:11 Dose: 0.5 mg Ranitidine HCl (Zantac -) 150 mg PO BID ANNA Last Admin: 02/24/17 09:30 Dose: Not Given - Objective Vital Signs: Vital Signs Temperature 98.3 F 02/24/17 05:46 Pulse Rate 76 02/24/17 05:46 Respiratory Rate 18 02/24/17 05:46 Blood Pressure 139/73 02/24/17 05:46 O2 Sat by Pulse Oximetry (%) 95 02/23/17 21:00 Constitutional: Yes: Mild Distress Eyes: Yes: WNL HENT: Yes: WNL Neck: Yes: WNL Cardiovascular: Yes: WNL Respiratory: Yes: Diminished Gastrointestinal: Yes: WNL Genitourinary: Yes: WNL Musculoskeletal: Yes: WNL Extremities: Yes: WNL Edema: No Peripheral Pulses WNL: Yes Integumentary: Yes: WNL Wound/Incision: Yes: Clean/Dry Neurological: Yes: WNL ...Motor Strength: WNL Psychiatric: Yes: WNL Labs: INR, PTT INR 0.95 (0.82-1.09) 02/22/17 10:57 Problem List - Problems (1) Lung malignancy Code(s): C34.90 - MALIGNANT NEOPLASM OF UNSP PART OF UNSP BRONCHUS OR LUNG Qualifiers: Laterality: unspecified laterality Lung location: unspecified part of lung Qualified Code(s): C34.90 - Malignant neoplasm of unspecified part of unspecified bronchus or lung (2) COPD (chronic obstructive pulmonary disease) Code(s): J44.9 - CHRONIC OBSTRUCTIVE PULMONARY DISEASE, UNSPECIFIED Qualifiers : COPD type: emphysema (3) Chronic renal disease Code(s): N18.9 - CHRONIC KIDNEY DISEASE, UNSPECIFIED Qualifiers: Chronic kidney disease stage: stage 5, not on chronic dialysis Qualified Code(s): N18.5 - Chronic kidney disease, stage 5 (4) Abdominal aneurysm Code(s): I71.4 - ABDOMINAL AORTIC ANEURYSM, WITHOUT RUPTURE (5) Hypertension Code(s): I10 - ESSENTIAL (PRIMARY) HYPERTENSION Qualifiers: Hypertension type: essential hypertension Qualified Code(s): I10 - Essential (primary) hypertension (6) Tobacco use Code(s): Z72.0 - TOBACCO USE Assessment/Plan MRI BRAIN ATIVAN 2MG IV PUSH 15MINS BEFORE MRI PULM FUNCTION TEST D/W PULM HAVE WHILE HERE PREOP FOR LUNG RESECTION BONE SCAN ONCOLOGY FOLLOW UP
[2017-02-24] MEDS ORDERED: LORazepam 2 MG/ML SDV VIAL IVPUSH ONE (10:00)
--- NOTE | 2017-02-24 10:19 | PN ---
Progress Note (short form) - Note Progress Note: PULMONARY AWAKE/ALERT VSS/AFEBRILE ANICTERIC CLEAR S1S2 BS+ NO EDEMA LABS/MEDS/NOTES/IMAGING REVIEWED IMP OSVALDO MASS +SQUAMOUS CELL CA COPD AAA CKD HTN GERD PLAN INHALED BRONCHODILATORS METASTATIC W/U PET SCAN OUTPATIENT BRAIN MRI W [facility] PFTS O2 SAT AT REST Jayla ADHIKARI MD
[2017-02-24] MEDS: ACETAMINOPHEN 325 MG TABLET (FP) PO PRN (12:07)
--- NOTE | 2017-02-24 17:51 | PN ---
Progress Note (short form) - Note Progress Note: RENAL Pt seen and examined. She had no complaints urinating well no nausea or vomiting Last Vital Signs Temp Pulse Resp BP Pulse Ox 98.5 F 94 H 20 109/68 96 02/24/17 14:37 02/24/17 14:37 02/24/17 14:37 02/24/17 14:37 02/24/17 09:00 lungs some basilar rhonchi cvs 1s2 rr abd soft ext no yamil neuro a+ox3 Current Medications Generic Name Dose Route Start Last Admin Trade Name Freq PRN Reason Stop Dose Admin Acetaminophen 650 mg 02/22/17 14:47 02/24/17 12:07 Tylenol - PO 650 mg Q6H PRN Administration FEVER OR PAIN Albuterol/Ipratropium 1 amp 02/22/17 14:47 Duoneb - NEB Q6H PRN SHORTNESS OF BREATH Amlodipine Besylate 5 mg 02/22/17 22:00 02/23/17 21:11 Norvasc - PO 5 mg HS ANNA Administration Lorazepam 0.5 mg 02/22/17 23:23 02/23/17 21:11 Ativan - PO 0.5 mg HS PRN Administration Ranitidine HCl 150 mg 02/22/17 22:00 02/24/17 09:30 Zantac - PO Not Given BID ANNA CBC, BMP 02/22/17 10:57 02/22/17 10:57 IMPRESSION COLE improved ckd AAA enlarging copd pulmonary mass PLAN would continue current management await work up- cardiology/pulmonary avoid nephrotoxins and hypotension would hydrate perioperatively repeat BMP MV
[2017-02-24] MEDS: amLODIPine BESYLATE 5 MG TABLET (FP) PO SCH (21:51)
[2017-02-24] MEDS: LORazepam 0.5 MG TABLET PO PRN (21:51)
[2017-02-25 06:12] VITALS: PULSE 79
--- NOTE | 2017-02-25 07:37 | DS ---
Physical Examination Vital Signs: Vital Signs Temperature 98.1 F 02/25/17 06:00 Pulse Rate 79 02/25/17 06:00 Respiratory Rate 18 02/25/17 06:00 Blood Pressure 120/67 02/25/17 06:00 O2 Sat by Pulse Oximetry (%) 96 02/24/17 21:00 Findings/Remarks: awake, anxious, Constitutional: Yes: Mild Distress Eyes: Yes: WNL HENT: Yes: WNL Neck: Yes: WNL Cardiovascular: Yes: WNL Respiratory: Yes: Cough, Poor Air Entry Gastrointestinal: Yes: WNL Renal/: Yes: WNL Musculoskeletal: Yes: Muscle Weakness Extremities: Yes: WNL Edema: No Peripheral Pulses WNL: Yes Integumentary: Yes: WNL Wound/Incision: Yes: Clean/Dry Neurological: Yes: WNL ...Motor Strength: WNL Psychiatric: Yes: WNL Discharge Summary Reason For Visit: MALIGNANT NEOPLASM OF LUNG Current Active Problems Abdominal aneurysm (Acute) COPD (chronic obstructive pulmonary disease) (Acute) Chronic renal disease (Acute) Hypertension (Acute) Lung malignancy (Acute) Tobacco use (Acute) Procedures: Principal: bone scan Other Procedures: echo/labs preop workup Hospital Course: admitted for lung mass and abd aneurysm, workup inpatient completed, will need outpatient petscan/mri brain and pft this week and next then can return for lung resection Condition: Unchanged/Unknown - Instructions Diet, Activity, Other Instructions: low sodium Pet scan needs to be scheduled by oncology please call dr briones's office today PFT with dr reynoso, please call him today MRI brain already scheduled by me, open mri of brain Disposition: HOME - Home Medications Comprehensive Discharge Medication List: Ambulatory Orders Acetaminophen [Tylenol] 325 mg PO ASDIR PRN 02/08/17 Amlodipine Besylate 10 mg PO HS 02/08/17 Umeclidinium Brm/Vilanterol Tr [Anoro Ellipta 62.5-25 Mcg INH] 1 each IH DAILY 02/08/17 Ranitidine [Zantac] 150 mg PO DAILY PRN 02/22/17
[2017-02-25 08:05] LABS: ANION GAP 8 (8-16); CALCIUM 8.7 mg/dL (8.5-10.1); CO2 25 mmol/L (21-32); CREATININE 2.7 mg/dL (0.55-1.02); GLUCOSE,RANDOM 95 mg/dL (74-106); PHOSPHOROUS 4.5 mg/dL (2.5-4.9)
[2017-02-25 09:35] VITALS: BP 136/63; TEMP 98.4
[2017-02-25] MEDS: RANITIDINE HCL 150 MG TABLET (FP) PO SCH (09:46)
[2017-02-25] MEDS: ACETAMINOPHEN 325 MG TABLET (FP) PO PRN (09:51)
== END 2017-02-25 10:09 | disposition home or self-care (01) | DRG 181 ==
LOC: JER 10:07 → JERBED 10:59 → J7W 13:00
PROVIDERS: ADMIT Family Medicine; ATTEND Family Medicine
DX: C34.92 Malignant neoplasm of unspecified part of left bronchus or lung (principal); N18.5 Chronic kidney disease, stage 5; I12.0 Hypertensive chronic kidney disease with stage 5 chronic kidney disease or end stage renal disease; I71.4 Abdominal aortic aneurysm, without rupture; F17.210 Nicotine dependence, cigarettes, uncomplicated; J44.9 Chronic obstructive pulmonary disease, unspecified; E78.00 Pure hypercholesterolemia, unspecified; K21.9 Gastro-esophageal reflux disease without esophagitis
CPT/HCPCS: 36415; 71010-TC; 78306-TC; 80048; 80053; 84100; 85025; 85610; 85730; 86850; 86900; 86901; 93005; 93010; 93306-TC; 99283-25; A9503

== ENCOUNTER 2017-03-07 13:47 | Inpatient (IN) | payer OTHER ==
--- NOTE | 2017-03-07 14:09 | PDOC ---
History of Present Illness - General Chief Complaint: Weakness Stated Complaint: PRE-OP/ DEHYDRATED Time Seen by Provider: 03/07/17 14:09 Past History - Past Medical History Allergies/Adverse Reactions: Allergies Allergy/AdvReac Type Severity Reaction Status Date / Time hydromorphone HCl AdvReac Vomiting Verified 03/07/17 13:54 [From Dilaudid] Home Medications: Ambulatory Orders Acetaminophen [Tylenol] 325 mg PO ASDIR PRN 02/08/17 Amlodipine Besylate 10 mg PO HS 02/08/17 Cholecalciferol (Vitamin D3) [D-2000] 2,000 unit PO ASDIR 03/05/17 Linaclotide [Linzess] 72 mcg PO BID 03/05/17 Umeclidinium Brm/Vilanterol Tr [Anoro Ellipta 62.5-25 Mcg INH] 1 each IH BID 02/11 Anemia: No Asthma: No Cancer: Yes (LUNG L) Cardiac Disorders: Yes (TACHYCARDIA ;BBB) CVA: No COPD: Yes Dementia: No Diabetes: No Dialysis: No (4TH STAGE RENAL FAILURE) GI Disorders: Yes (DIVERTICULITIS) Disorders: No HTN: Yes Hypercholesterolemia: Yes Liver Disease: No Suicide Attempt (Hx): No Seizures: No Thyroid Disease: No - Surgical History Abdominal Surgery: No Appendectomy: No Cardiac Surgery: No Cholecystectomy: No Lung Surgery: No Neurologic Surgery: No Orthopedic Surgery: No - Immunization History Td Vaccination: Yes Immunization Up to Date: Yes - Psycho/Social/Smoking Cessation Hx Anxiety: No Suicidal Ideation: No Smoking Status: Yes Smoking History: Current every day smoker Have you smoked in the past 12 months: Yes Number of Cigarettes Smoked Daily: 20 If you are a former smoker, when did you quit?: 1 week ago Information on smoking cessation initiated: No 'Breaking Loose' booklet given: 03/08/17 Hx Alcohol Use: Yes (SOCIAL) Drug/Substance Use Hx: No Substance Use Type: None Hx Substance Use Treatment: No *Physical Exam - Vital Signs Last Vital Signs Temp Pulse Resp BP Pulse Ox 97.6 F 88 20 142/84 98 03/07/17 13:50 03/07/17 13:50 03/07/17 13:50 03/07/17 13:50 03/07/17 13:50
--- NOTE | 2017-03-07 14:24 | PDOC ---
History of Present Illness <Page Cohen - Last Filed: 03/07/17 14:46> - History of Present Illness Initial Comments: 03/07/17 14:21 CC: "I need to be hydrated before surgery tomorrow" Patient is a 76 y.o. female with a PMH of abdominal aortic aneursym, CKD Stage IV, COPD, recently diagnosed Lung CA with lobectomy scheduled for tomorrow who presents at behest of her embedded firmware engineer, Dr. Damon, for pre-operative hydration. Surgical: L cheek replacement Social: (+) nicotine 1-2 ppd/65 year, (+) alcohol, (-) marijuana/cocaine/heroin PMD: Dr. Truong Allergies: Dilaudid <Esther Alarcon - Last Filed: 03/07/17 15:59> - General Chief Complaint: Weakness Stated Complaint: PRE-OP/ DEHYDRATED Time Seen by Provider: 03/07/17 14:09 Past History <Page Cohen - Last Filed: 03/07/17 14:46> - Past Medical History Anemia: No Asthma: No Cancer: Yes (LUNG L) Cardiac Disorders: Yes (TACHYCARDIA ;BBB) CVA: No COPD: Yes Dementia: No Diabetes: No Dialysis: No (4TH STAGE RENAL FAILURE) GI Disorders: Yes (DIVERTICULITIS) Disorders: No HTN: Yes Hypercholesterolemia: Yes Liver Disease: No Suicide Attempt (Hx): No Seizures: No Thyroid Disease: No - Surgical History Abdominal Surgery: No Appendectomy: No Cardiac Surgery: No Cholecystectomy: No Lung Surgery: No Neurologic Surgery: No Orthopedic Surgery: No - Immunization History Td Vaccination: Yes Immunization Up to Date: Yes - Psycho/Social/Smoking Cessation Hx Anxiety: No Suicidal Ideation: No Smoking Status: Yes Smoking History: Current every day smoker Have you smoked in the past 12 months: Yes Number of Cigarettes Smoked Daily: 20 If you are a former smoker, when did you quit?: 1 week ago Information on smoking cessation initiated: No 'Breaking Loose' booklet given: 03/08/17 Hx Alcohol Use: Yes (SOCIAL) Drug/Substance Use Hx: No Substance Use Type: None Hx Substance Use Treatment: No <Esther Alarcon - Last Filed: 03/07/17 15:59> - Past Medical History Allergies/Adverse Reactions: Allergies Allergy/AdvReac Type Severity Reaction Status Date / Time hydromorphone HCl AdvReac Vomiting Verified 03/07/17 13:54 [From Dilaudid] Home Medications: Ambulatory Orders Amlodipine Besylate 10 mg PO HS 02/08/17 Lorazepam [Ativan] 0.5 mg PO HS 03/07/17 Review of Systems - Review of Systems Constitutional: No: Diaphoresis, Fever HEENTM: No: Blurred Vision, Double Vision Respiratory: No: Shortness of Breath Cardiac (ROS): No: Lightheadedness, Palpitations ABD/GI: No: Constipated, Diarrhea All Other Systems: Reviewed and Negative <Esther Alarcon - Last Filed: 03/07/17 15:59> *Physical Exam - Vital Signs Last Vital Signs Temp Pulse Resp BP Pulse Ox 97.6 F 88 20 142/84 98 03/07/17 13:50 03/07/17 13:50 03/07/17 13:50 03/07/17 13:50 03/07/17 13:50 <Page Cohen - Last Filed: 03/07/17 14:46> - Vital Signs Last Vital Signs Temp Pulse Resp BP Pulse Ox 97.6 F 88 20 142/84 98 03/07/17 13:50 03/07/17 13:50 03/07/17 13:50 03/07/17 13:50 03/07/17 13:50 - Physical Exam General Appearance: Yes: Nourished, Appropriately Dressed Neck: positive: Trachea midline, Supple Respiratory/Chest: positive: Dullness Cardiovascular: positive: S1, S2, Irregularly Irregular Integumentary: positive: Dry, Warm Neurologic: positive: Fully Oriented, Alert <Esther Alarcon - Last Filed: 03/07/17 15:59> ED Treatment Course - LABORATORY CBC & Chemistry Diagram: 03/07/17 15:10 03/07/17 15:10 <Esther Alarcon - Last Filed: 03/07/17 15:59> Medical Decision Making - Medical Decision Making 03/07/17 15:52 Patient is a 76 y.o. female who presents for pre-operative hydration prior to a R lung lobectomy tomorrow. Covering physician (Dr. Law) for Dr. Truong ( patient's PCP) contacted and indicated patient should be gently hydrated @ 75 mL /hour for 12 hours prior to surgery. As patient's most recent lab work was , pre-operative labs were ordered as well as EKG. Patient admitted under Dr. Truong. <Esther Alarcon - Last Filed: 03/07/17 15:59> *DC/Admit/Observation/Transfer - Discharge Dispostion Admit: Yes <Page Cohen - Last Filed: 03/07/17 14:46> <Esther Alarcon - Last Filed: 03/07/17 15:59> Diagnosis at time of Disposition: Dehydration - Discharge Dispostion Condition at time of disposition: Stable
--- NOTE | 2017-03-07 14:34 | PDOC ---
Attending Attestation - Resident Resident Name: Esther Alarcon - ED Attending Attestation I have performed the following: I have examined & evaluated the patient, The case was reviewed & discussed with the resident, I agree w/resident's findings & plan, Exceptions are as noted - Medical Decision Making 03/07/17 14:[address] Tomlinson for IV hydration prior to surgery tomorrow. Pt comfortable at present. Will hydrate as per Dr. Lwa and admit. <Page Cohen - Last Filed: 03/07/17 14:51> - HPI HPI: 03/07/17 14:53 The patient is a 76 year old female, with a significant past medical history of AAA, HTN, CKD, ESRD, who presents to the emergency department for pre-op evaluation and for dehydration. The patient is pre-op for an upcoming lobectomy. The patient denies any dark urine. She denies recent fevers, chills , headache or dizziness. She denies recent nausea, vomit, diarrhea or constipation. She denies recent dysuria, frequency, urgency or hematuria. She denies recent chest pain or shortness of breath. Allergies: NKA Past surgical history: Biopsy for lung mass Social history: Current everyday smoker. Denies EtOH use and recreational drug use. Primary Care Physician: - Physicial Exam PE: 03/07/17 14:53 GENERAL: Awake, alert, and fully oriented, in no acute distress HEAD: No signs of trauma EYES: PERRLA, EOMI, sclera anicteric, conjunctiva clear ENT: Auricles normal inspection, hearing grossly normal, nares patent, oropharynx clear without exudates. Dry mucosa NECK: Normal ROM, supple, no lymphadenopathy, JVD, or masses LUNGS: Breath sounds equal, clear to auscultation bilaterally. No wheezes, and no crackles HEART: Regular rate and rhythm, normal S1 and S2, no murmurs, rubs or gallops ABDOMEN: Soft, nontender, normoactive bowel sounds. No guarding, no rebound. No masses EXTREMITIES: Normal range of motion, no edema. No clubbing or cyanosis. No cords, erythema, or tenderness NEUROLOGICAL: Cranial nerves II through XII grossly intact. Normal speech, normal gait SKIN: Scaling of the skin on the legs, no rashes or lesions noted. - Medical Decision Making 03/07/17 15:00 Documentation prepared by Tom Sahu, acting as medical office receptionist for Page Cohen MD. <Tom Sahu - Last Filed: 03/07/17 15:00> History of Present Illness <Page Cohen - Last Filed: 03/07/17 14:51> <Tom Sahu - Last Filed: 03/07/17 15:00> - General Chief Complaint: Weakness Stated Complaint: PRE-OP/ DEHYDRATED Time Seen by Provider: 03/07/17 14:09 *Physical Exam - Vital Signs Last Vital Signs Temp Pulse Resp BP Pulse Ox 97.6 F 88 20 142/84 98 03/07/17 13:50 03/07/17 13:50 03/07/17 13:50 03/07/17 13:50 03/07/17 13:50 <Tom Sahu - Last Filed: 03/07/17 15:00>
[2017-03-07] MEDS: SODIUM CHLORIDE 1,000 ML IV SCH ×2 (15:00→21:03)
[2017-03-07 15:14] LABS: BASOPHIL 0.1 % (0-2.0); MCH 30.9 pg (25.7-33.7); MCHC 34.4 g/dl (32.0-36.0); MEAN CELL VOLUME 89.7 fl (80-96); MEAN PLT VOLUME 8.1 fl (7.5-11.1); NEUTROPHILS 92.7 % (42.8-82.8); PLATELET COUNT 234 K/MM3 (134-434); RDW 13.8 % (11.6-15.6)
[2017-03-07 15:35] LABS: ALBUMIN 3.5 g/dl (3.4-5.0); ANION GAP 13 (8-16); CO2 16 mmol/L (21-32); GLUCOSE,RANDOM 161 mg/dL (74-106)
[2017-03-07 15:38] LABS: CREATININE 2.8 mg/dL (0.55-1.02); SGOT/AST 10 U/L (15-37); SGPT/ALT 16 U/L (12-78)
[2017-03-07 15:40] LABS: ALK PHOS 86 U/L (45-117); BILIRUBIN,TOTAL 0.3 mg/dL (0.2-1.0); TOT PROT 7.3 g/dl (6.4-8.2)
[2017-03-07 18:03] VITALS: BMI 23.5
[2017-03-07] MEDS: HEPARIN NA (PORCINE) 5,000 UNITS/ML 1ML VIAL SQ SCH (21:33)
[2017-03-07] MEDS ORDERED: LORazepam 0.5 MG TABLET PO SCH (22:00)
[2017-03-07] MEDS ORDERED: amLODIPine BESYLATE 10 MG TABLET (FP) PO SCH (22:00)
[2017-03-07 22:07] LABS: URINE APPEARANCE CLEAR; URINE BILIRUBIN NEGATIVE (NEGATIVE); URINE BLOOD 2+ (NEGATIVE); URINE COLOR LTYELLOW; URINE GLUCOSE (UA) 1+ (NEGATIVE); URINE KETONE NEGATIVE (NEGATIVE); URINE LEUK ESTERASE NEGATIVE (NEGATIVE); URINE NITRITE NEGATIVE (NEGATIVE); URINE UROBILINOGEN NEGATIVE mg/dL (0.2-1.0)
[2017-03-07 22:07] LABS: INR 0.93 (0.82-1.09); PROTHROMBIN TIME (PATIENT) 10.2 SEC (9.98-11.88)
[2017-03-07 22:09] LABS: URINE PROTEIN 2+ (NEGATIVE)
[2017-03-07 22:10] LABS: URINE MUCUS RARE; URINE RBC 3 /hpf (0-3); URINE WBC <1 /hpf (3-5)
[2017-03-08] MEDS ORDERED: MIDAZOLAM HCL 2 MG/2 ML SINGLE DOSE VIAL ONE (07:09)
[2017-03-08] MEDS ORDERED: PROPOFOL 20 ML ONE ×5 (07:09→10:54)
[2017-03-08] MEDS ORDERED: SUCCINYLCHOLINE CHLORIDE 200 MG/10 ML VIAL ONE (07:09)
[2017-03-08] MEDS ORDERED: ROCURONIUM BROMIDE 50 MG/5 ML VIAL ONE ×3 (07:09→10:55)
[2017-03-08] MEDS ORDERED: BUPIVACAINE HCL/PF 0.5% (5MG/ML) 10 ML VIAL ONE (07:30)
[2017-03-08] MEDS ORDERED: BUPIVACAINE HCL/PF 0.25% (2.5MG/ML) 10 ML VIAL ONE (07:30)
[2017-03-08] MEDS ORDERED: LIDOCAINE HCL 1%, 10 MG/ML (20ML VIAL) ONE (07:41)
[2017-03-08] MEDS ORDERED: ceFAZolin SODIUM 1 GM VIAL IVPB ONE (08:12)
[2017-03-08] MEDS ORDERED: HYDROmorphone HCL/PF 1 MG/ML VIAL (FOR PYXIS CHARGING ONLY) ONE (08:18)
[2017-03-08] MEDS ORDERED: HEPARIN NA (PORCINE) 5,000 UNITS/ML 1ML VIAL SQ ONE (08:18)
[2017-03-08] MEDS ORDERED: ceFAZolin SODIUM 1 GM VIAL ONE (08:20)
[2017-03-08] MEDS ORDERED: HEPARIN NA (PORCINE) 5,000 UNITS/ML 1ML VIAL ONE (08:39)
[2017-03-08] MEDS ORDERED: DEXAMETHASONE SOD PHOSPHATE 4 MG/1 ML VIAL ONE (09:19)
[2017-03-08] MEDS ORDERED: PHENYLEPHRINE HCL 10 MG/1 ML SINGLE DOSE VIAL ONE (09:37)
[2017-03-08] MEDS ORDERED: METOPROLOL TARTRATE 5 MG/5 ML VIAL ONE (09:39)
[2017-03-08] MEDS: HEPARIN NA (PORCINE) 5,000 UNITS/ML 1ML VIAL SQ SCH ×2 (10:18→21:28)
[2017-03-08] MEDS ORDERED: NEOSTIGMINE METHYLSULFATE 0.5 MG/ML - 10 ML MDV ONE (11:00)
[2017-03-08] MEDS ORDERED: GLYCOPYRROLATE 0.2 MG/1 ML VIAL ONE (11:00)
[2017-03-08] MEDS: IPRATROPIUM BR 0.02% 0.5 MG/2.5 ML VIAL.NEB. NEB SCH ×3 (12:10→23:04)
--- NOTE | 2017-03-08 12:22 | OP ---
Operative Note - Note: Operative Date: 03/08/17 Pre-Operative Diagnosis: Lung cancer Operation: Bronchoscopy, left vats upper lobectomy, lymph node sampling Findings: bronchial margin negative; level 5 negative. Post-Operative Diagnosis: Same as Pre-op Surgeon: Nicole Villanueva ([facility]) Anesthesia: General Specimens Removed: Level 5, left upper lobe Estimated Blood Loss (mls): 100 Operative Report Dictated: Yes
[2017-03-08] MEDS ORDERED: ONDANSETRON 4 MG/2 ML VIAL IVPUSH PRN (12:23)
[2017-03-08] MEDS ORDERED: LACTATED RINGERS SOLUTION 1,000 ML IV SCH (12:30)
[2017-03-08] MEDS ORDERED: FENTANYL/BUPIVACAINE/NS/PF - PCEA - 50 ML DISP.SYRIN EP SCH (12:30)
[2017-03-08] MEDS: FENTANYL/BUPIVACAINE/NS/PF - PCEA - 50 ML DISP.SYRIN EP SCH ×3 (13:10→20:15)
--- NOTE | 2017-03-08 15:12 | CONSULT ---
Consult Consult Specialty:: Nephrology Reason for Consultation:: CKD - History of Present Illness Chief Complaint: pt presented for VATs History of Present Illness: Pt is a 76 year old female with pmhx of AAA, HTN, and CKD who was admitted for VATs procedure. I was called to evaluate her as she has CKD. She had the VATS done and has a chest tube. She is currently in the recovery room. She was extubated and is now on oxygen. She tolerated the procedure. She was recently admitted to the hospital. - History Source History Provided By: Medical Record - Past Medical History Cardio/Vascular: Yes: AFIB, Aneurysm, HTN Pulmonary: Yes: COPD, Other (LUNG MASS) Gastrointestinal: Yes: GERD Renal/: Yes: Renal Failure Rheumatology: Yes: Other - Alcohol/Substance Use Hx Alcohol Use: Yes (SOCIAL) - Smoking History Smoking history: Current every day smoker Have you smoked in the past 12 months: Yes Aproximately how many cigarettes per day: 20 If you are a former smoker, when did you quit?: 1 week ago Home Medications - Allergies Allergies/Adverse Reactions: Allergies Allergy/AdvReac Type Severity Reaction Status Date / Time hydromorphone HCl AdvReac Vomiting Verified 03/07/17 13:54 [From Dilaudid] - Home Medications Home Medications: Ambulatory Orders Amlodipine Besylate 10 mg PO HS 02/08/17 Lorazepam [Ativan] 0.5 mg PO HS 03/07/17 Family Disease History - Family Disease History Family History: Unable to Obtain Review of Systems - Review of Systems Constitutional: denies: Chills, Fever HENT: reports: No Symptoms Cardiovascular: reports: No Symptoms Respiratory: reports: Cough, SOB Gastrointestinal: reports: No Symptoms Genitourinary: reports: No Symptoms Musculoskeletal: reports: No Symptoms Integumentary: reports: No Symptoms Psychiatric: reports: No Symptoms Physical Exam Vital Signs: Vital Signs Temperature 97.5 F L 03/08/17 12:12 Pulse Rate 64 03/08/17 13:13 Respiratory Rate 12 03/08/17 13:13 Blood Pressure 92/60 03/08/17 12:12 O2 Sat by Pulse Oximetry (%) 100 03/08/17 13:13 Constitutional: Yes: Anxious Eyes: Yes: Conjunctiva Clear HENT: Yes: Atraumatic Cardiovascular: Yes: S1, S2 Respiratory: Yes: On Nasal O2, Other (chest tube) Gastrointestinal: Yes: Soft Renal/: Yes: Avery Present Musculoskeletal: Yes: WNL Edema: No Neurological: Yes: Oriented Labs: CBC, BMP 03/07/17 15:10 03/07/17 15:10 Laboratory Tests 02/22/17 02/25/17 03/07/17 10:57 06:00 15:10 WBC 13.0 H D Hgb 12.9 Plt Count 234 Sodium Potassium Chloride Carbon Dioxide Anion Gap BUN Creatinine 3.3 H D 2.7 H Urine Color Urine Appearance Urine pH Urine Protein Urine Glucose (UA) Urine Ketones Urine Blood Urine Nitrite Urine Bilirubin Urine Urobilinogen Ur Leukocyte Esterase 03/07/17 03/07/17 15:10 21:45 WBC Hgb Plt Count Sodium 137 Potassium 4.7 D Chloride 108 H Carbon Dioxide 16 L D Anion Gap 13 BUN 60 H D Creatinine 2.8 H Urine Color Ltyellow Urine Appearance Clear Urine pH 5.0 Urine Protein 2+ H Urine Glucose (UA) 1+ H Urine Ketones Negative Urine Blood 2+ H Urine Nitrite Negative Urine Bilirubin Negative Urine Urobilinogen Negative Ur Leukocyte Esterase Negative Imaging - Results Chest X-ray: Report Reviewed Problem List - Problems (1) Abdominal aneurysm Code(s): I71.4 - ABDOMINAL AORTIC ANEURYSM, WITHOUT RUPTURE (2) COPD (chronic obstructive pulmonary disease) Code(s): J44.9 - CHRONIC OBSTRUCTIVE PULMONARY DISEASE, UNSPECIFIED (3) Chronic renal disease Code(s): N18.9 - CHRONIC KIDNEY DISEASE, UNSPECIFIED Qualifiers: (4) Hypertension Code(s): I10 - ESSENTIAL (PRIMARY) HYPERTENSION Qualifiers: (5) Lung malignancy Code(s): C34.90 - MALIGNANT NEOPLASM OF UNSP PART OF UNSP BRONCHUS OR LUNG (6) Tobacco use Code(s): Z72.0 - TOBACCO USE Assessment/Plan Current Medications Generic Name Dose Route Start Last Admin Trade Name Freq PRN Reason Stop Dose Admin Acetaminophen 650 mg 03/07/17 20:32 Tylenol - PO Q4H PRN FEVER OR PAIN Docusate Sodium 100 mg 03/08/17 18:00 Colace Liquid - PO Q8H-IV ANNA Fentanyl 25 mcg 03/08/17 12:23 Sublimaze Injection - IVPUSH 03/11/17 12:24 [id number] PRN PAIN Fentanyl/Bupivacaine/Sodium Chlor 50 ml 03/08/17 14:33 Bupivicaine 0.125%/Fentanyl 2mcg/Ml Pcea - EP ASDIR [facility] Protocol Heparin Sodium (Porcine) 5,000 unit 03/07/17 22:00 03/08/17 10:18 Heparin - SQ Not Given BID ANNA Sodium Chloride 1,000 mls @ 75 mls/hr 03/07/17 14:45 03/07/17 21:03 Normal Saline - IV 75 mls/hr ASDIR ANNA Administration Lactated Ringer's 1,000 mls @ 75 mls/hr 03/08/17 12:30 Lactated Ringers Solution IV ASDIR ANNA Ipratropium [place] 1 amp 03/08/17 12:00 03/08/17 12:10 Atrovent 0.02% Nebulizer - NEB Not Given QIDR ANNA Ondansetron HCl 4 mg 03/08/17 12:23 Zofran Injection IVPUSH 03/08/17 18:24 Q6H PRN NAUSEA AND/OR VOMITING Impression 1. CKD 2. AAA 3. lung cancer 4. HTN Plan - check bmp to evaluate lytes and renal function - fluids while NPO - surgery follow up - admit to ICU post op - reviewed OR logs, no episodes of significant hypotension - monitor pulse ox Dr Shearer
--- NOTE | 2017-03-08 18:03 | HP ---
Admitting History and Physical - Primary Care Physician PCP: Kanchan Truong - Admission Chief Complaint: S/P LUNG LOBECTOMY History of Present Illness: 76 YEAR OLD FEMALE WITH LUNG MASS S/P LOBECTOMY, COPD, CKD IN ICU POST-OP EXTUBATED, AWAKE IN MOD/SEVERE PAIN ON 4L NC History Source: Patient, Medical Record Limitations to Obtaining History: Clinical Condition - Past Medical History Cardiovascular: Yes: AFIB, Aneurysm, HTN Pulmonary: Yes: COPD, Other (LUNG MASS) Gastrointestinal: Yes: GERD Renal/: Yes: Renal Failure Rheumatology: Yes: Other - Smoking History Smoking history: Current every day smoker Have you smoked in the past 12 months: Yes Aproximately how many cigarettes per day: 20 If you are a former smoker, when did you quit?: 1 week ago - Alcohol/Substance Use Hx Alcohol Use: Yes (SOCIAL) Home Medications - Allergies Allergies/Adverse Reactions: Allergies Allergy/AdvReac Type Severity Reaction Status Date / Time hydromorphone HCl AdvReac Vomiting Verified 03/07/17 13:54 [From Dilaudid] - Home Medications Home Medications: Ambulatory Orders Amlodipine Besylate 10 mg PO HS 02/08/17 Lorazepam [Ativan] 0.5 mg PO HS 03/07/17 Review of Systems - Review of Systems Constitutional: reports: Weakness Eyes: reports: No Symptoms HENT: reports: No Symptoms Neck: reports: No Symptoms Cardiovascular: reports: Shortness of Breath Respiratory: reports: SOB Genitourinary: reports: No Symptoms, Other Musculoskeletal: reports: No Symptoms Integumentary: reports: No Symptoms Neurological: reports: No Symptoms Endocrine: reports: No Symptoms Hematology/Lymphatic: reports: No Symptoms Physical Examination Vital Signs: Vital Signs Temperature 97.8 F 03/08/17 16:00 Pulse Rate 58 L 03/08/17 16:00 Respiratory Rate 18 03/08/17 16:00 Blood Pressure 91/67 03/08/17 16:00 O2 Sat by Pulse Oximetry (%) 100 03/08/17 15:00 Constitutional: Yes: Moderate Distress Eyes: Yes: WNL HENT: Yes: WNL Neck: Yes: WNL Cardiovascular: Yes: Tachycardia Respiratory: Yes: Diminished, On Nasal O2, Other Gastrointestinal: Yes: WNL Renal/: Yes: Avery Present Musculoskeletal: Yes: Muscle Weakness Extremities: Yes: WNL Edema: No Peripheral Pulses WNL: Yes Integumentary: Yes: WNL Wound/Incision: Yes: Clean/Dry Neurological: Yes: WNL ...Motor Strength: WNL Psychiatric: Yes: WNL Labs: CBC, BMP 03/07/17 15:10 03/07/17 15:10 Problem List - Problems (1) Abdominal aneurysm Code(s): I71.4 - ABDOMINAL AORTIC ANEURYSM, WITHOUT RUPTURE (2) COPD (chronic obstructive pulmonary disease) Code(s): J44.9 - CHRONIC OBSTRUCTIVE PULMONARY DISEASE, UNSPECIFIED (3) Chronic renal disease Code(s): N18.9 - CHRONIC KIDNEY DISEASE, UNSPECIFIED Qualifiers: (4) Hypertension Code(s): I10 - ESSENTIAL (PRIMARY) HYPERTENSION Qualifiers: (5) Lung malignancy Code(s): C34.90 - MALIGNANT NEOPLASM OF UNSP PART OF UNSP BRONCHUS OR LUNG (6) Tobacco use Code(s): Z72.0 - TOBACCO USE Assessment/Plan LOBECTOMY COMPLETED EXTUBATED ON NC 02 PAIN CONTROL MONITOR RENAL FUNCTION IV HYDRATION PAIN CONTROL DVT PROPHYLAXIS
[2017-03-08] MEDS: DOCUSATE NA 100 MG/10 ML UNIT-DOSE CUPS PO SCH (18:16)
[2017-03-08] MEDS: SODIUM CHLORIDE 1,000 ML IV SCH (18:19)
[2017-03-08 18:34] LABS: MCHC 33.6 g/dl (32.0-36.0); MEAN CELL VOLUME 92.4 fl (80-96); PLATELET COUNT 258 K/MM3 (134-434); RDW 14.4 % (11.6-15.6); WHITE BLOOD COUNT 24.9 K/mm3 (4.0-10.0)
[2017-03-08 20:28] LABS: PLATELET ESTIMATE ADEQUATE (NORMAL)
[2017-03-08] MEDS ORDERED: HEMOQUE TEST 1 EACH EACH ONE (21:02)
[2017-03-08 21:26] LABS: ALK PHOS 71 U/L (45-117); ANION GAP 18 (8-16); BILIRUBIN,TOTAL 0.3 mg/dL (0.2-1.0); CALCIUM 7.7 mg/dL (8.5-10.1); CO2 9 mmol/L (21-32); GLUCOSE,RANDOM 120 mg/dL (74-106); SGOT/AST 55 U/L (15-37); SGPT/ALT 57 U/L (12-78)
--- NOTE | 2017-03-08 21:26 | CONSULT ---
Consult Consult Specialty:: Pulm/CCM Reason for Consultation:: Lung Ca s/p Lt lobectomy - History of Present Illness Chief Complaint: Lt chest incisional pain History of Present Illness: 76yow active smoker with PMHx COPD, CKD now s/p Lt Lobectomy and admitted to ICU for post op management. Rec'd A+O x3 VS HR 72, BP 101/68, O2 sat 98% on 4L NC. Lt CT site with serosang drainage. CT x1 to LWS with serosang drainage, no air leak noted. Has epidural cath site c/d. Has Fentanyl/Bupivacaine infusing at 4. Increased to 6 re c/o incisional pain >6/10. - History Source History Provided By: Patient, Medical Record - Past Medical History Cardio/Vascular: Yes: AFIB, Aneurysm, HTN Pulmonary: Yes: COPD, Other (LUNG MASS) Gastrointestinal: Yes: GERD Renal/: Yes: Renal Failure Rheumatology: Yes: Other - Alcohol/Substance Use Hx Alcohol Use: Yes (SOCIAL) - Smoking History Smoking history: Current every day smoker Have you smoked in the past 12 months: Yes Aproximately how many cigarettes per day: 20 If you are a former smoker, when did you quit?: 1 week ago Home Medications - Allergies Allergies/Adverse Reactions: Allergies Allergy/AdvReac Type Severity Reaction Status Date / Time hydromorphone HCl AdvReac Vomiting Verified 03/07/17 13:54 [From Dilaudid] - Home Medications Home Medications: Ambulatory Orders Amlodipine Besylate 10 mg PO HS 02/08/17 Lorazepam [Ativan] 0.5 mg PO HS 03/07/17 Physical Exam Vital Signs: Vital Signs Temperature 97.8 F 03/08/17 16:00 Pulse Rate 65 03/08/17 20:49 Respiratory Rate 15 03/08/17 20:49 Blood Pressure 115/90 03/08/17 20:49 O2 Sat by Pulse Oximetry (%) 98 03/08/17 18:00 Constitutional: Yes: Well Nourished, Anxious Eyes: Yes: WNL, Conjunctiva Clear, EOM Intact HENT: Yes: Normocephalic Neck: Yes: Trachea Midline Cardiovascular: Yes: Regular Rate and Rhythm Respiratory: Yes: Regular, Other (Diminished on Lt LL, Lt chest CT to LWS with serosang drainage) Gastrointestinal: Yes: Normal Bowel Sounds, Soft Renal/: Yes: Avery Present Musculoskeletal: Yes: WNL Extremities: Yes: WNL Edema: No Peripheral Pulses WNL: Yes Wound/Incision: Yes: Other (Dressing intact with sero sang drainage) Neurological: Yes: Alert, Oriented ...Motor Strength: WNL Psychiatric: Yes: Alert, Oriented Labs: CBC, BMP 03/08/17 17:00 CBC,CMP WBC 24.9 K/mm3 (4.0-10.0) H D 03/08/17 17:00 RBC 3.78 M/mm3 (3.60-5.2) 03/08/17 17:00 Hgb 11.7 GM/dL (10.7-15.3) 03/08/17 17:00 Hct 35.0 % (32.4-45.2) 03/08/17 17:00 MCV 92.4 fl (80-96) 03/08/17 17:00 MCH 31.0 pg (25.7-33.7) 03/08/17 17:00 MCHC 33.6 g/dl (32.0-36.0) 03/08/17 17:00 RDW 14.4 % (11.6-15.6) 03/08/17 17:00 Plt Count 258 K/MM3 (134-434) 03/08/17 17:00 MPV 9.0 fl (7.5-11.1) D 03/08/17 17:00 Neutrophils % Y 03/08/17 17:00 Neutrophils % (Manual) 84 % (42.8-82.8) H 03/08/17 17:00 Band Neuts % (Manual) 2 % (0-10) 03/08/17 17:00 Lymphocytes % Y 03/08/17 17:00 Lymphocytes % (Manual) 4 % (8-40) L 03/08/17 17:00 Monocytes % 1.5 % (3.8-10.2) L D 03/07/17 15:10 Monocytes % (Manual) 10 % (3.8-10.2) 03/08/17 17:00 Eosinophils % 0.0 % (0-4.5) D 03/07/17 15:10 Basophils % 0.1 % (0-2.0) 03/07/17 15:10 Platelet Estimate Adequate (NORMAL) 03/08/17 17:00 RBC Morphology Appears normal 03/08/17 17:00 Sodium 137 mmol/L (136-145) 03/07/17 15:10 Potassium 4.7 mmol/L (3.5-5.1) D 03/07/17 15:10 Chloride 108 mmol/L (98-107) H 03/07/17 15:10 Carbon Dioxide 16 mmol/L (21-32) L D 03/07/17 15:10 Anion Gap 13 (8-16) 03/07/17 15:10 BUN 60 mg/dL (7-18) H D 03/07/17 15:10 Creatinine 2.8 mg/dL (0.55-1.02) H 03/07/17 15:10 Creat Clearance w eGFR 16.52 (>60) 03/07/17 15:10 Random Glucose 161 mg/dL (74-106) H D 03/07/17 15:10 Calcium 9.0 mg/dL (8.5-10.1) 03/07/17 15:10 Total Bilirubin 0.3 mg/dL (0.2-1.0) D 03/07/17 15:10 AST 10 U/L (15-37) L 03/07/17 15:10 ALT 16 U/L (12-78) 03/07/17 15:10 Alkaline Phosphatase 86 U/L (45-117) 03/07/17 15:10 Total Protein 7.3 g/dl (6.4-8.2) 03/07/17 15:10 Albumin 3.5 g/dl (3.4-5.0) 03/07/17 15:10 Active Medications Acetaminophen (Tylenol -) 650 mg PO Q4H PRN PRN Reason: FEVER OR PAIN Docusate Sodium (Colace Liquid -) 100 mg PO Q8H-IV ANNA Last Admin: 03/08/17 18:16 Dose: Not Given Fentanyl (Sublimaze Injection -) 25 mcg IVPUSH [id number] PRN PRN Reason: PAIN Stop: 03/11/17 12:24 Last Admin: 03/08/17 14:00 Dose: 25 mcg Fentanyl/Bupivacaine/Sodium Chlor (Bupivicaine 0.125%/Fentanyl 2mcg/Ml Pcea -) 50 ml EP ASDIR ANNA PRN Reason: Protocol Heparin Sodium (Porcine) (Heparin -) 5,000 unit SQ BID ANNA Last Admin: 03/08/17 10:18 Dose: Not Given Sodium Chloride (Normal Saline -) 1,000 mls @ 75 mls/hr IV ASDIR [facility] Last Admin: 03/08/17 18:19 Dose: Not Given Cefazolin Sodium (Ancef 1 Gm Premixed Ivpb -) 50 mls @ 100 mls/hr IVPB Q8H-IV ANNA Stop: 03/10/17 01:59 Ipratropium [place] (Atrovent 0.02% Nebulizer -) 1 amp NEB QIDR [facility] Last Admin: 03/08/17 16:00 Dose: 1 amp Problem List - Problems (1) COPD (chronic obstructive pulmonary disease) Code(s): J44.9 - CHRONIC OBSTRUCTIVE PULMONARY DISEASE, UNSPECIFIED (2) Chronic renal disease Code(s): N18.9 - CHRONIC KIDNEY DISEASE, UNSPECIFIED Qualifiers: (3) Hypertension Code(s): I10 - ESSENTIAL (PRIMARY) HYPERTENSION Qualifiers: (4) Lung malignancy Code(s): C34.90 - MALIGNANT NEOPLASM OF UNSP PART OF UNSP BRONCHUS OR LUNG (5) Tobacco use Code(s): Z72.0 - TOBACCO USE Assessment/Plan 76yow active smoker with PMHx COPD, CKD now s/p Lt Lobectomy and admitted to ICU for post op management. Plan: -NCO2 support for O2sat>95% -CT to LWS- monitor output and air leak -CXR in am -IS -Pain management with epidural infusion as per anesthesia -Cont COPD nebs -Montior BMP and UOP re CKD -Clears as jazmin -DVT proph
--- NOTE | 2017-03-08 21:26 | EKG ---
Test Reason : Blood Pressure : / mmHG Vent. Rate : 071 BPM Atrial Rate : 071 BPM P-R Int : 138 ms QRS Dur : 136 ms QT Int : 466 ms P-R-T Axes : 074 066 -27 degrees QTc Int : 506 ms SINUS RHYTHM WITH FREQUENT PREMATURE VENTRICULAR COMPLEXES IN A PATTERN OF BIGEMINY RIGHT BUNDLE BRANCH BLOCK T WAVE ABNORMALITY, CONSIDER INFEROLATERAL ISCHEMIA ABNORMAL ECG WHEN COMPARED WITH ECG OF 07-MAR-2017 15:33, SINUS RHYTHM HAS REPLACED ATRIAL FIBRILLATION Confirmed by KINGSTON DOLL MD ([id number]) on 03/08/2017 9:25:39 PM Referred By: Confirmed By:KINGSTON DOLL MD
[2017-03-08] MEDS: ACETAMINOPHEN 325 MG TABLET (FP) PO PRN (21:28)
--- NOTE | 2017-03-08 21:48 | EKG ---
Test Reason : Blood Pressure : / mmHG Vent. Rate : 079 BPM Atrial Rate : 375 BPM P-R Int : 000 ms QRS Dur : 126 ms QT Int : 410 ms P-R-T Axes : 000 057 -58 degrees QTc Int : 470 ms ATRIAL FIBRILLATION WITH PREMATURE VENTRICULAR OR ABERRANTLY CONDUCTED COMPLEXES RIGHT BUNDLE BRANCH BLOCK T WAVE ABNORMALITY, CONSIDER INFEROLATERAL ISCHEMIA ABNORMAL ECG WHEN COMPARED WITH ECG OF 22-FEB-2017 11:03, ATRIAL FIBRILLATION HAS REPLACED SINUS RHYTHM T WAVE VARIATION Confirmed by KINGSTON DOLL MD ([id number]) on 03/08/2017 9:48:28 PM Referred By: Confirmed By:KINGSTON DOLL MD
[2017-03-08] MEDS: dilTIAZem HCL 30 MG TABLET (FP) PO SCH (22:13)
[2017-03-09 00:59] LABS: ALBUMIN 2.9 g/dl (3.4-5.0); ALK PHOS 68 U/L (45-117); ANION GAP 10 (8-16); BILIRUBIN,TOTAL 0.2 mg/dL (0.2-1.0); CO2 17 mmol/L (21-32); CREATININE 3.1 mg/dL (0.55-1.02); GLUCOSE,RANDOM 119 mg/dL (74-106); SGOT/AST 32 U/L (15-37); SGPT/ALT 44 U/L (12-78)
[2017-03-09] MEDS: SODIUM CHLORIDE 1,000 ML IV SCH ×3 (01:00→18:56)
[2017-03-09] MEDS ORDERED: INSULIN REGULAR HUMAN 100 UNITS/ML *VIAL IVPUSH ONE (01:37)
[2017-03-09] MEDS ORDERED: DEXTROSE 50%-WATER - 25 GM/50 ML VIAL IVPUSH ONE (01:37)
[2017-03-09] MEDS ORDERED: CALCIUM GLUCONATE 10% - 1,000 MG/10 ML VIAL IVPB ONE (01:38)
[2017-03-09] MEDS ORDERED: SODIUM POLYSTYRENE SULFONATE 15 GM/60 ML BOTTLE PO ONE (01:42)
[2017-03-09] MEDS: DOCUSATE NA 100 MG/10 ML UNIT-DOSE CUPS PO SCH ×3 (02:42→17:54)
[2017-03-09] MEDS: CEFAZOLIN 1 GM/D5W 50 ML IVPB SCH ×3 (02:42→17:54)
[2017-03-09] MEDS: dilTIAZem HCL 30 MG TABLET (FP) PO SCH (06:18)
[2017-03-09 06:24] LABS: MCHC 34.1 g/dl (32.0-36.0); MEAN CELL VOLUME 91.1 fl (80-96); MEAN PLT VOLUME 8.5 fl (7.5-11.1); PLATELET COUNT 243 K/MM3 (134-434); RDW 14.1 % (11.6-15.6); WHITE BLOOD COUNT 15.5 K/mm3 (4.0-10.0)
[2017-03-09] MEDS: IPRATROPIUM BR 0.02% 0.5 MG/2.5 ML VIAL.NEB. NEB SCH ×3 (06:31→18:10)
[2017-03-09 06:40] LABS: ALBUMIN 3.1 g/dl (3.4-5.0); ANION GAP 12 (8-16); CALCIUM 8.6 mg/dL (8.5-10.1); CO2 17 mmol/L (21-32); GLUCOSE,RANDOM 101 mg/dL (74-106)
[2017-03-09 06:43] LABS: ALK PHOS 68 U/L (45-117); BILIRUBIN,TOTAL 0.3 mg/dL (0.2-1.0); CREATININE 3.1 mg/dL (0.55-1.02); SGOT/AST 29 U/L (15-37); SGPT/ALT 39 U/L (12-78); TOT PROT 6.2 g/dl (6.4-8.2)
[2017-03-09] MEDS ORDERED: FENTANYL/BUPIVACAINE/NS/PF - PCEA - 50 ML DISP.SYRIN EP ONE (07:45)
--- NOTE | 2017-03-09 07:56 | PN ---
Progress Note (short form) - Note Progress Note: POD #1 Alert. Sitting in bed with HOB at 45 degrees. C/o incisional pain. 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 Hasn't been OOB to chair yet. Weak effort when using her incentive spirometer. Denies n/v/f/c, CP, weak, dizzy or palpitations. Last Vital Signs Temp Pulse Resp BP Pulse Ox 98.6 F 71 18 127/82 100 03/09/17 06:00 03/09/17 06:00 03/09/17 06:00 03/09/17 06:00 03/08/17 21:53 CBC, BMP 03/09/17 05:00 03/09/17 05:00 INR, PTT INR 0.93 (0.82-1.09) 03/07/17 21:40 OUTPUT TRENDS 03/08/17 03/08/17 03/09/17 18:25 23:00 06:00 Left Chest Tube 50 625 Fernández 150 100 500 Gen: alert. comfortable. nad Chest: Pleurovac on suction--> no leak. C/D/I. No hematoma : fernández to gravity (clear) LE: SCDs on bilat. No tenderness/edema/swelling/pain bilat Problem List - Problems (1) Lung malignancy Assessment/Plan: POD #1 s/p Bronchoscopy, left VATs upper lobectomy, lymph node sampling. is to be expected f/u CXR Cont incentive spirometer Pulmonary toileting OOB to chair PT for ambulation Fernández to remain Pain management DVT PPX Ipratropium Nebs --> COPD CxT placed to waterseal Tylenol 650mg PO for fevers > 100.3F Above discussed with Dr. Wheat and agrees Code(s): C34.90 - MALIGNANT NEOPLASM OF UNSP PART OF UNSP BRONCHUS OR LUNG
--- NOTE | 2017-03-09 08:15 | PN ---
Physical Exam: SUBJECTIVE: Patient seen and examined by me this AM. - Pt very vocal regarding care concerns. Complaining of incisional pain overnight. Anesthesia consulted, increased epidural HOME HEALTH CARE COORDINATOR gtt from 4 -> 6ml/hr - CT in place, draining serosanguinous fluid - Denies fever, N/V, dizziness, CROWE, palpitations, weakness, hemoptysis. Complaining of "bronchitis" and sore throat likely due to prolonged intubation. Given cepacol. - Poor IS. Requesting Spiriva. - Tachycardic to 140s in AM due to pain. - s/p L VATS, OSVALDO lobectomy OBJECTIVE: Vital Signs Intake & Output 03/06/17 03/07/17 03/08/17 03/09/17 23:59 23:59 23:59 23:59 Intake Total 600 2275 1200 Output Total 950 1125 Balance 600 1325 75 Weight 68.039 kg 68.294 kg 72.66 kg Period Temp Pulse Resp BP Sys/Sellers Pulse Ox Last 24 Hr 97.5 F-99 F 58-117 12-24 91-141/55-94 96-100 GENERAL: The patient is awake, alert, and fully oriented, complaining of mild pain at incision site. HEAD: Normal with no signs of trauma. EYES: PERRL, extraocular movements intact, sclera anicteric, conjunctiva clear. No ptosis. ENT: Ears normal, nares patent, oropharynx clear without exudates, moist mucous membranes. NECK: Trachea midline, full range of motion, supple. LUNGS: Increased BL upper lobe congestion. CT in place on L side, no erythema/ bleeding at site, draining freely HEART: Irregular rate, S1, S2 without murmur, rub or gallop. ABDOMEN: Soft, nontender, nondistended, hypoactive bowel sounds, no guarding, no rebound, no hepatosplenomegaly, no masses. EXTREMITIES: 2+ pulses, warm, well-perfused, no edema. NEUROLOGICAL: Cranial nerves II through XII grossly intact. Normal speech, gait not observed. Laboratory Results - last 24 hr CBC, BMP 03/09/17 05:00 03/09/17 05:00 03/07/17 03/08/17 03/08/17 21:45 08:00 17:00 WBC RBC Hgb Hct MCV MCH MCHC RDW Plt Count MPV Neutrophils % Neutrophils % (Manual) Band Neuts % (Manual) Lymphocytes % Lymphocytes % (Manual) Monocytes % (Manual) Platelet Estimate RBC Morphology Sodium 144 Potassium 5.3 H Chloride 117 H Carbon Dioxide 9 L D Anion Gap 18 H BUN 56 H Creatinine 3.0 H Creat Clearance w eGFR 15.25 POC Glucometer Random Glucose 120 H D Calcium 7.7 L Total Bilirubin 0.3 AST 55 H D ALT 57 D Alkaline Phosphatase 71 Total Protein 6.0 L Albumin 3.0 L Urine Color Ltyellow Urine Appearance Clear Urine pH 5.0 Ur Specific [place] 1.015 Urine Protein 2+ H Urine Glucose (UA) 1+ H Urine Ketones Negative Urine Blood 2+ H Urine Nitrite Negative Urine Bilirubin Negative Urine Urobilinogen Negative Urine RBC 3 Urine WBC <1 Ur Epithelial Cells Rare Urine Mucus Rare Blood Type A POSITIVE Antibody Screen Negative Crossmatch IS Only See Detail 03/08/17 03/08/17 03/09/17 17:00 21:38 00:20 WBC 24.9 H D RBC 3.78 Hgb 11.7 Hct 35.0 MCV 92.4 MCH 31.0 MCHC 33.6 RDW 14.4 Plt Count 258 MPV 9.0 D Neutrophils % Y Neutrophils % (Manual) 84 H Band Neuts % (Manual) 2 Lymphocytes % Y Lymphocytes % (Manual) 4 L Monocytes % (Manual) 10 Platelet Estimate Adequate RBC Morphology Appears normal Sodium 139 Potassium 5.4 H Chloride 112 H Carbon Dioxide 17 L D Anion Gap 10 BUN 57 H Creatinine 3.1 H Creat Clearance w eGFR 14.69 POC Glucometer 202.66015 Random Glucose 119 H Calcium 8.0 L Total Bilirubin 0.2 D AST 32 D ALT 44 D Alkaline Phosphatase 68 Total Protein 6.0 L Albumin 2.9 L Urine Color Urine Appearance Urine pH Ur Specific [place] Urine Protein Urine Glucose (UA) Urine Ketones Urine Blood Urine Nitrite Urine Bilirubin Urine Urobilinogen Urine RBC Urine WBC Ur Epithelial Cells Urine Mucus Blood Type Antibody Screen Crossmatch IS Only 03/09/17 03/09/17 05:00 05:00 WBC 15.5 H D RBC 3.84 Hgb 11.9 Hct 35.0 MCV 91.1 MCH 31.0 MCHC 34.1 RDW 14.1 Plt Count 243 MPV 8.5 Neutrophils % Neutrophils % (Manual) Band Neuts % (Manual) Lymphocytes % Lymphocytes % (Manual) Monocytes % (Manual) Platelet Estimate RBC Morphology Sodium 140 Potassium 5.1 Chloride 111 H Carbon Dioxide 17 L Anion Gap 12 BUN 57 H Creatinine 3.1 H Creat Clearance w eGFR 14.69 POC Glucometer Random Glucose 101 Calcium 8.6 Total Bilirubin 0.3 D AST 29 ALT 39 Alkaline Phosphatase 68 Total Protein 6.2 L Albumin 3.1 L Urine Color Urine Appearance Urine pH Ur Specific [place] Urine Protein Urine Glucose (UA) Urine Ketones Urine Blood Urine Nitrite Urine Bilirubin Urine Urobilinogen Urine RBC Urine WBC Ur Epithelial Cells Urine Mucus Blood Type Antibody Screen Crossmatch IS Only Active Medications Generic Name Dose Route Start Last Admin Trade Name Freq PRN Reason Stop Dose Admin Acetaminophen 650 mg 03/07/17 20:32 03/08/17 21:28 Tylenol - PO 650 mg Q4H PRN Administration FEVER OR PAIN Diltiazem HCl 30 mg 03/08/17 22:00 03/09/17 06:18 Cardizem - PO 03/14/17 23:59 30 mg TID ANNA Administration Docusate Sodium 100 mg 03/08/17 18:00 03/09/17 02:42 Colace Liquid - PO Not Given Q8H-IV ANNA Fentanyl 25 mcg 03/08/17 12:23 03/08/17 14:00 Sublimaze Injection - IVPUSH 03/11/17 12:24 25 mcg [id number] PRN Administration PAIN Fentanyl/Bupivacaine/Sodium Chlor 50 ml 03/08/17 20:15 03/08/17 20:15 Bupivicaine 0.125%/Fentanyl 2mcg/Ml Pcea - EP 50 ml ASDIR ANNA Administration Protocol Fentanyl/Bupivacaine/Sodium Chlor 10 ml 03/09/17 07:45 Bupivicaine 0.125%/Fentanyl 2mcg/Ml Pcea - EP 03/09/17 07:46 ONCE ONE Protocol Heparin Sodium (Porcine) 5,000 unit 03/07/17 22:00 03/08/17 21:28 Heparin - SQ 5,000 unit BID ANNA Administration Sodium Chloride 1,000 mls @ 75 mls/hr 03/07/17 14:45 03/09/17 01:00 Normal Saline - IV 75 mls/hr ASDIR ANNA Administration Cefazolin Sodium 50 mls @ 100 mls/hr 03/09/17 02:00 03/09/17 02:42 Ancef 1 Gm Premixed Ivpb - IVPB 03/10/17 01:59 100 mls/hr Q8H-IV ANNA Administration Ipratropium [place] 1 amp 03/08/17 12:00 03/09/17 06:31 Atrovent 0.02% Nebulizer - NEB 1 amp QIDR ANNA Administration CXR (03/09) - No pneumo. Left basilar atelectasis. Left chest tube in place. Increased left lower lung markings. ASSESSMENT/PLAN: 76 yo F smoker w/ pmhx of COPD, CKD, currently s/p L VATS/OSVALDO lobectomy and admitted to ICU for further post-op management. Pt doing well, with adequate pain control on epidural gtt. Suspicion of heterogenous mass on tricuspid valve on echo 02/25 per cardiology. Will require serial blood cultures, ID consult. #Neuro - Epidural HOME HEALTH CARE COORDINATOR for pain control, tylenol 650 q4h PRN - Cepacol lozenges for throat pain #Cardiac - Cadiology recs greatly appreciated. 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 Suspicion of IE. - Serial blood cx's - Will inform PCP, Dr. Truong of cardiology recs #Pulm - O2 2L NC. Titrate to >94% - Incentive spirometer - Tudorza 1 puff BID, Atrovent - Inhaled bronchodilators - Pt counseling on smoking cessation #ID - Ancef 1gm q8h IV - WBC's downtrending 24.9 -> 15.5 - f/u serial blood cx's for IE - Consult ID - Consider BOY #Renal - Good UOP post-op - mild hyperK, downtrending 5.4->5.1 - BUN/Cr (57, 3.1). No significant change since admission. - Strict Is&Os - Daily BMPs - Monitor lytes. Trend BUN/Cr #Heme -Monitor H/H #GI - Colace for constipation - Monitor for return of bowel function #FEN -Fluids: 75cc/hr -Electrolytes: Daily BMPs, Trend BUN/Cr -Nutrition: Clears, advance as tolerated #PPX -SubQ Heparin for DVT ppx -PPI for GI ppx #Dispo - Dispo to ICU for further post-op monitoring/management for today, w/ transfer to med-surg tomorrow. Kasi Rojas, PGY1 Plan discussed with attending, Dr. Larry Visit type - Emergency Visit Emergency Visit: No - New Patient This patient is new to me today: Yes Date on this admission: 03/09/17 - Critical Care Critical Care patient: Yes Total Critical Care Time (in minutes): 35 Critical Care Statement: The care of this patient involved high complexity decision making to prevent further life threatening deterioration of the patient 's condition and/or to evaluate & treat vital organ system(s) failure or risk of failure.
--- NOTE | 2017-03-09 08:47 | PN ---
Progress Note (short form) - Note Progress Note: S: Pt. resting in bed, c/o left sided chest pain. O: VAS 8-10/10 A/P: POD#1 s/p left VATS 1. will bolus the epidural and increase rate back to 6ml/hr 2. encouraged insentive spirometer use 3. will add po pain meds if epidural changes don't alleviate the pain
[2017-03-09] MEDS: HEPARIN NA (PORCINE) 5,000 UNITS/ML 1ML VIAL SQ SCH ×2 (09:32→21:29)
[2017-03-09] MEDS: FENTANYL/BUPIVACAINE/NS/PF - PCEA - 50 ML DISP.SYRIN EP SCH ×3 (09:36→21:28)
[2017-03-09] MEDS ORDERED: dilTIAZem HCL 125 MG/25 ML - 25 ML VIAL ONE (10:32)
[2017-03-09] MEDS ORDERED: dilTIAZem HCL 30 MG TABLET (FP) PO ONE (10:45)
[2017-03-09] MEDS: ACLIDINIUM BROMIDE 400 MCG/INH AERO.POWD IH SCH ×2 (11:00→21:29)
[2017-03-09] MEDS: dilTIAZem HCL 60 MG TABLET (FP) PO SCH ×2 (12:32→17:54)
--- NOTE | 2017-03-09 12:55 | PN ---
Teaching Attending Note Name of Resident: Kasi Rojas ATTENDING PHYSICIAN STATEMENT I saw and evaluated the patient. I reviewed the resident's note and discussed the case with the resident. I agree with the resident's findings and plan as documented. SUBJECTIVE: Pt seen and examined in the ICU. s/p L VATS/OSVALDO lobectomy/LN biopsy. Remains on epidural for pain control. Mild nonproductive cough. OBJECTIVE: Last Vital Signs Temp Pulse Resp BP Pulse Ox 98.4 F 89 18 137/69 90 L 03/09/17 10:00 03/09/17 12:00 03/09/17 12:00 03/09/17 12:00 03/09/17 10:36 Intake & Output 03/06/17 03/07/17 03/08/17 03/09/17 23:59 23:59 23:59 23:59 Intake Total 600 2275 1200 Output Total 950 1125 Balance 600 1325 75 Weight 150 lb 150 lb 9 oz 160 lb 3 oz Gen: NAD in chair Heart: RRR Lung: decreased breath sounds at the bases Abd: soft, nontender Ext: no edema Chest tube: serosanguinous drainage, no air leak CBC, BMP 03/09/17 05:00 03/09/17 05:00 Active Medications Acetaminophen (Tylenol -) 650 mg PO Q4H PRN PRN Reason: FEVER OR PAIN Last Admin: 03/08/17 21:28 Dose: 650 mg Aclidinium [place] (Tudorza -) 1 puff IH BID ANNA Last Admin: 03/09/17 11:00 Dose: 1 puff Diltiazem HCl (Cardizem -) 60 mg PO Q6HPO ANNA Last Admin: 03/09/17 12:32 Dose: 60 mg Docusate Sodium (Colace Liquid -) 100 mg PO Q8H-IV ANNA Last Admin: 03/09/17 09:32 Dose: 100 mg Fentanyl (Sublimaze Injection -) 25 mcg IVPUSH [id number] PRN PRN Reason: PAIN Stop: 03/11/17 12:24 Last Admin: 03/08/17 14:00 Dose: 25 mcg Fentanyl/Bupivacaine/Sodium Chlor (Bupivicaine 0.125%/Fentanyl 2mcg/Ml Pcea -) 50 ml EP ASDIR ANNA PRN Reason: Protocol Last Admin: 03/09/17 09:36 Dose: 50 ml Heparin Sodium (Porcine) (Heparin -) 5,000 unit SQ BID [facility] Last Admin: 03/09/17 09:32 Dose: 5,000 unit Sodium Chloride (Normal Saline -) 1,000 mls @ 75 mls/hr IV ASDIR [facility] Last Admin: 03/09/17 01:00 Dose: 75 mls/hr Cefazolin Sodium (Ancef 1 Gm Premixed Ivpb -) 50 mls @ 100 mls/hr IVPB Q8H-IV ANNA Stop: 03/10/17 01:59 Last Admin: 03/09/17 09:32 Dose: 100 mls/hr Ipratropium [place] (Atrovent 0.02% Nebulizer -) 1 amp NEB QIDR [facility] Last Admin: 03/09/17 11:14 Dose: 1 amp ASSESSMENT AND PLAN: NSCLC (Squamous Cell) s/p L VATS/OSVALDO lobectomy COPD Atrial fibrillation with RVR Mitral Regurgitation Smoker - pain control - incentive spirometry - inhaled bronchodilators - O2 to keep SpO2 >90% - rate control - cardiology evaluation - PO as tolerated - DVT prophylaxis
[2017-03-09] MEDS ORDERED: BENZOCAINE/MENTH/CETYLPYRD CL 1 EACH LOZENGE MM PRN (13:15)
--- NOTE | 2017-03-09 14:20 | CON.CARD ---
Consult Consult Specialty:: Cardiology - History of Present Illness History of Present Illness: 76 F with HTn, COPD, previous history of PAF, AAA, CKD 4, Diagnosed with squamous cell lung CA and is electively admitted for lung resection done . ECG showed Afib and she has developed post operative Afib with rapid response. She does not report pain, chest pain, or dyspnea. 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 There have been no fevers or chills. - History Source History Provided By: Patient, Medical Record - Past Medical History Cardio/Vascular: Yes: AFIB, Aneurysm, HTN Pulmonary: Yes: COPD, Other (LUNG MASS) Gastrointestinal: Yes: GERD Renal/: Yes: Renal Failure Rheumatology: Yes: Other - Alcohol/Substance Use Hx Alcohol Use: Yes (SOCIAL) - Smoking History Smoking history: Current every day smoker Have you smoked in the past 12 months: Yes Aproximately how many cigarettes per day: 20 If you are a former smoker, when did you quit?: 1 week ago Home Medications - Allergies Allergies/Adverse Reactions: Allergies Allergy/AdvReac Type Severity Reaction Status Date / Time hydromorphone HCl AdvReac Vomiting Verified 03/07/17 13:54 [From Dilaudid] - Home Medications Home Medications: Ambulatory Orders Amlodipine Besylate 10 mg PO HS 02/08/17 Lorazepam [Ativan] 0.5 mg PO HS 03/07/17 Review of Systems - Review of Systems Constitutional: reports: No Symptoms Eyes: reports: No Symptoms HENT: reports: No Symptoms Neck: reports: No Symptoms Cardiovascular: reports: No Symptoms Respiratory: reports: No Symptoms Gastrointestinal: reports: No Symptoms Genitourinary: reports: No Symptoms Integumentary: reports: No Symptoms Vital Signs: Vital Signs Temperature 98.6 F 03/09/17 13:16 Pulse Rate 88 03/09/17 13:16 Respiratory Rate 18 03/09/17 13:16 Blood Pressure 121/83 03/09/17 13:16 O2 Sat by Pulse Oximetry (%) 90 L 03/09/17 10:36 Constitutional: Yes: Calm Eyes: Yes: Conjunctiva Clear, EOM Intact HENT: Yes: Atraumatic, Normocephalic Neck: Yes: Supple, Trachea Midline Respiratory: Yes: Regular, CTA Bilaterally Gastrointestinal: Yes: Normal Bowel Sounds Cardiovascular: Yes: Tachycardia, Pulse Irregular JVD: No Carotid Bruit: No PMI: Non-Displaced Heart Sounds: Yes: S1, S2 Murmur: No: Systolic Murmur, Diastolic Murmur, Grade 1, Grade 2, Grade 3, Grade 4, Grade 5, Grade 6 Extremities: Yes: WNL Edema: No - Other Data Labs, Other Data: CBC, BMP 03/09/17 05:00 03/09/17 05:00 INR, PTT INR 0.93 (0.82-1.09) 03/07/17 21:40 Echo: Report Reviewed Ejection Fraction %: LVEF > or = 40 % Imaging - Results Chest X-ray: Report Reviewed EKG: Image Reviewed (Afib VPC RBBB) Assessment/Plan 76 F COPD, AAA, PAF, HTN, lung CA sp ressection POD #1 with: 1. postop rapid Afib. 2. 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 Moderate to severe MR/TR with preserved EF. 3. High WBC 4. COPD, stable CKD, and lung cancer Rec: a. Continue Diltiazem 60mg Q6hr. Asymptomatic with regards to her Afib. after 1 dose diltiazem her HR has improved. Will try to rate control. b. After cleared by surgery would advise anticoagulation c. please obtain multiple blood cultures. Additional blood cultures if the patient becomes febrile. No indication for BOY: TV mass well described on recent Echo and BOY will not change the management. Has been on Abx postop. d. Suggest ID consult.
--- NOTE | 2017-03-09 14:24 | OPR ---
Patient Name: Alicia Roberson MR#: [id number] Procedure Date: 03/08/2017 Preoperative Diagnosis: lung cancer Postoperative Diagnosis: same Procedure: 1. Flexible bronchoscopy; 2. Left VATS upper lobectomy; 3. Lymph node sampling. Indication: as above Surgeon(s): Dr. Nicole Villanueva; Cosurgeon: Dr. Baudilio Wheat. Anesthesia: General Endotracheal Wound Classification: Clean Antibiotic Prophylaxis: n/a Findings: 1. Bronchoscopy: Normal 2. Thoracoscopy: Friable tissue, level 5 negative, tumor in left upper lobe, bronchial margin negative. Specimens: upper lobe, lymph nodes. Complications: none Drains / Tubes / Catheters: 1 chest tube. Hardware / Implants: na Blood / Fluid Losses: 100cc. Blood / Fluids Administered: per anesthesia Post-Operative Condition: stable Indications: This patient is a 76 year-old female, smoker, with a history of atrial fibrillation, AAA, and chronic renal failure who was referred from Dr. Truong and Dr. Wolfe for a lung cancer in her upper lobe. She was explained the risks, benefits, and alternatives of a bronchoscopy and left lung resection, and she agreed and understood. All questions were answered. Details of Procedure: The patient was taken into the operating room and placed supine on the table. She was monitored with pulse oximetry and blood pressure monitoring, including an arterial line. Sequential compression devices were placed. Subcutaneous heparin was given and a fernández catheter was placed. She was given sedation and an endotracheal tube was placed. A bronchoscopy was performed to view the airway and for operative planning. Lung isolation was achieved with a double-lumen endotracheal tube. She was then positioned in the right lateral decubitus position and lung isolation was confirmed. The chest was prepared and draped in sterile fashion. The first port was placed in the 7th intercostal space. We then placed two more ports and an anterior port in the 4th intercostal space. We then divided the pulmonary ligament, and dissected up to the inferior pulmonary vein. Next, we palpated the lesion. The lesion was identified and then we performed a left upper lobectomy and lymph node sampling using individual hilar ligation with stapling devices. The tumor was removed with a specimen bag and sent to pathology for frozen section. We then obtained hemostasis of the ports and staple lines. We then placed a chest tube and secured it. The lung was expanded again. Wounds were closed with absorbable sutures after expanding the lung. Sterile dressings were placed. The patient was then awakened and extubated. She tolerated the procedure well and was taken to the PACU. As there was no competent help available, we performed this surgery with two surgeons. I was responsible for the bronchoscopy and hilar ligation while Dr. Villanueva was the primary surgeon and I was the cosurgeon. We were both available postoperatively.
--- NOTE | 2017-03-09 14:39 | PN ---
Progress Note, Physician History of Present Illness: Pt seen and examined at bedside. She is awake and alert. She complains of discomfort from the procedure. - Current Medication List Current Medications: Active Medications Acetaminophen (Tylenol -) 650 mg PO Q4H PRN PRN Reason: FEVER OR PAIN Last Admin: 03/08/17 21:28 Dose: 650 mg Aclidinium [place] (Tudorza -) 1 puff IH BID [facility] Last Admin: 03/09/17 11:00 Dose: 1 puff Benzocaine/Menthol (Cepacol Lozenge -) 1 each MM PRN PRN PRN Reason: SORE THROAT Diltiazem HCl (Cardizem -) 60 mg PO Q6HPO [facility] Last Admin: 03/09/17 12:32 Dose: 60 mg Docusate Sodium (Colace Liquid -) 100 mg PO Q8H-IV ANNA Last Admin: 03/09/17 09:32 Dose: 100 mg Fentanyl (Sublimaze Injection -) 25 mcg IVPUSH [id number] PRN PRN Reason: PAIN Stop: 03/11/17 12:24 Last Admin: 03/08/17 14:00 Dose: 25 mcg Fentanyl/Bupivacaine/Sodium Chlor (Bupivicaine 0.125%/Fentanyl 2mcg/Ml Pcea -) 50 ml EP ASDIR ANNA PRN Reason: Protocol Last Admin: 03/09/17 09:36 Dose: 50 ml Heparin Sodium (Porcine) (Heparin -) 5,000 unit SQ BID [facility] Last Admin: 03/09/17 09:32 Dose: 5,000 unit Sodium Chloride (Normal Saline -) 1,000 mls @ 75 mls/hr IV ASDIR [facility] Last Admin: 03/09/17 01:00 Dose: 75 mls/hr Cefazolin Sodium (Ancef 1 Gm Premixed Ivpb -) 50 mls @ 100 mls/hr IVPB Q8H-IV ANNA Stop: 03/10/17 01:59 Last Admin: 03/09/17 09:32 Dose: 100 mls/hr Ipratropium [place] (Atrovent 0.02% Nebulizer -) 1 amp NEB QIDR [facility] Last Admin: 03/09/17 11:14 Dose: 1 amp - Objective Vital Signs: Vital Signs Temperature 98.6 F 03/09/17 13:16 Pulse Rate 88 03/09/17 13:16 Respiratory Rate 18 03/09/17 13:16 Blood Pressure 121/83 03/09/17 13:16 O2 Sat by Pulse Oximetry (%) 90 L 03/09/17 10:36 Constitutional: Yes: Calm Eyes: Yes: Conjunctiva Clear HENT: Yes: Atraumatic Cardiovascular: Yes: S1, S2 Respiratory: Yes: On Nasal O2 Gastrointestinal: Yes: Soft Genitourinary: Yes: WNL Musculoskeletal: Yes: WNL Edema: No Neurological: Yes: Oriented Psychiatric: Yes: Oriented Labs: CBC, BMP 03/09/17 05:00 03/09/17 05:00 INR, PTT INR 0.93 (0.82-1.09) 03/07/17 21:40 Problem List - Problems (1) Abdominal aneurysm Code(s): I71.4 - ABDOMINAL AORTIC ANEURYSM, WITHOUT RUPTURE (2) COPD (chronic obstructive pulmonary disease) Code(s): J44.9 - CHRONIC OBSTRUCTIVE PULMONARY DISEASE, UNSPECIFIED (3) Chronic renal disease Code(s): N18.9 - CHRONIC KIDNEY DISEASE, UNSPECIFIED Qualifiers: (4) Hypertension Code(s): I10 - ESSENTIAL (PRIMARY) HYPERTENSION Qualifiers: (5) Lung malignancy Code(s): C34.90 - MALIGNANT NEOPLASM OF UNSP PART OF UNSP BRONCHUS OR LUNG (6) Tobacco use Code(s): Z72.0 - TOBACCO USE Assessment/Plan Current Medications Generic Name Dose Route Start Last Admin Trade Name Freq PRN Reason Stop Dose Admin Acetaminophen 650 mg 03/07/17 20:32 03/08/17 21:28 Tylenol - PO 650 mg Q4H PRN Administration FEVER OR PAIN Aclidinium [place] 1 puff 03/09/17 10:00 03/09/17 11:00 Tudorza - IH 1 puff BID ANNA Administration Benzocaine/Menthol 1 each 03/09/17 13:15 Cepacol Lozenge - MM PRN PRN SORE THROAT Diltiazem HCl 60 mg 03/09/17 12:00 03/09/17 12:32 Cardizem - PO 60 mg Q6HPO ANNA Administration Docusate Sodium 100 mg 03/08/17 18:00 03/09/17 09:32 Colace Liquid - PO 100 mg Q8H-IV ANNA Administration Fentanyl 25 mcg 03/08/17 12:23 03/08/17 14:00 Sublimaze Injection - IVPUSH 03/11/17 12:24 25 mcg [id number] PRN Administration PAIN Fentanyl/Bupivacaine/Sodium Chlor 50 ml 03/08/17 20:15 03/09/17 09:36 Bupivicaine 0.125%/Fentanyl 2mcg/Ml Pcea - EP 50 ml ASDIR ANNA Administration Protocol Heparin Sodium (Porcine) 5,000 unit 03/07/17 22:00 03/09/17 09:32 Heparin - SQ 5,000 unit BID ANNA Administration Sodium Chloride 1,000 mls @ 75 mls/hr 03/07/17 14:45 03/09/17 01:00 Normal Saline - IV 75 mls/hr ASDIR ANNA Administration Cefazolin Sodium 50 mls @ 100 mls/hr 03/09/17 02:00 03/09/17 09:32 Ancef 1 Gm Premixed Ivpb - IVPB 03/10/17 01:59 100 mls/hr Q8H-IV ANNA Administration Ipratropium [place] 1 amp 03/08/17 12:00 03/09/17 11:14 Atrovent 0.02% Nebulizer - NEB 1 amp QIDR ANNA Administration Impression 1. CKD 2. AAA 3. lung cancer 4. HTN 5. hyperkalemia Plan - agree with changing fluids from LR to NS - can decrease fluids if she tolerates diet - repeat labs in am - repeat potassium is stable - monitor in ICU - will follow Dr Shearer
--- NOTE | 2017-03-09 14:58 | PATH ---
Surgical Pathology Report Patient Name: MYRNA TRACEY [facility]. Rec. #: [id number] /Age/Gender: 1940 (Age: 76) / F Account: [id number] Location: ICU MANAGER APPLIED Taken: 03/08/2017 Received: 03/08/2017 Reported: 03/09/2017 Physicians: Baudilio Wheat M.D. Specimen(s) Received A: THORACIC LYMPH NODE LEVEL 5 B: LEFT UPPER LOBE C: THORACIC LYMPH NODE LEVEL2 Clinical History Lung Cancer Intraoperative Consult Diagnosis A. Thoracic lymph node level V left, frozen section: Benign lymph node. Maira Goldstein M.D., 03/08/2017 B. Left upper lobe bronchial margin, frozen section: Benign. Maira Goldstein M.D., 03/08/2017 Final Diagnosis A. LYMPH NODE, THORACIC LEVEL V LEFT, EXCISION: BENIGN LYMPH NODE. B. 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 BRONCHIAL AND VASCULAR MARGINS OF EXCISION ARE FREE OF CARCINOMA, WITH CARCINOMA 6 CM FROM BRONCHIAL MARGIN. NO LYMPH VASCULAR INVASION IDENTIFIED. FIVE PERIBRONCHIAL LYMPH NODES IDENTIFIED AND FREE OF CARCINOMA (0/5). C. LYMPH NODES, THORACIC LEVEL II, EXCISION: TWO BENIGN LYMPH NODES (0/2). Comment: Also see prior biopsy [id number]. Comments Lung Carcinoma: Surgical Pathology Cancer Case Summary (Checklist) Based on AJCC/UICC TNM, 7th edition Specimen Laterality _X__ Left Specimen Integrity _X__ Intact Tumor Site _X__ Upper lobe Tumor Size Greatest dimension: 3.1 cm Tumor Focality _X__ Unifocal Histologic Type : SQUAMOUS, NON-KERATINIZING Histologic Grade _X__ G2: Moderately differentiated Visceral Pleura Invasion _X__ Present Tumor Extension : NOT APPLICABLE Margins Bronchial Margin _X__ Uninvolved by invasive carcinoma Vascular Margin _X__ Uninvolved by invasive carcinoma Parenchymal Margin _X__ Not applicable Parietal Pleural Margin _X__ Not applicable Chest Wall Margin _X__ Not applicable If all margins uninvolved by invasive carcinoma: Distance of invasive carcinoma from closest margin: approximately 60 mm Specify margin: BRONCHIAL Treatment Effect _X__ Not applicable Lymph-Vascular Invasion _X__ Not identified Pathologic Staging (pTNM) Primary Tumor: pT2a Regional Lymph Nodes: pN0 Number examined 8 Number involved 0 Distant Metastasis: pMX Electronically Signed Saeid Goldstein M.D. Gross Description A. Received fresh for frozen section labeled "thoracic lymph node level V left" is a 1.5 x 0.7 x 0.7 cm lymph node with a uniform dark brown cut surface. No focal lesions are identified. The specimen is bisected and frozen in its entirety and frozen remainder is submitted in cassette FSA. B. Received fresh labeled "left upper lobe," is a 201 g, 22.0 x 10.3 x 4.5 cm lobe of lung. The specimen displays a 13.5 cm in length staple line. The pleura displays a focal, central umbilication. Sectioning reveals a 3.1 x 2.3 x 2.0 cm whitley-jain, irregular, firm mass focally abutting the pleura at the site of the pleural umbilication, and 6 cm from the bronchial margin. The remaining lung parenchyma is pink-whitley and spongy. There are multiple possible black lymph node identified at the hilum. The bronchial margin is removed and submitted for frozen section. Toxicology Supervisor sections are submitted in 10 cassettes as follows: 1-frozen section residue of bronchial margin; 2-vascular margin; 3-4-one full face bisected section of mass with pleura; 0-6-tnxihavzlh employment representative mass with pleura; 1-4-zquwvtewit lung parenchyma; 9-shave of staple line; 10-multiple possible lymph nodes. C. Received in formalin labeled "thoracic lymph node level II," are 2 black, irregular possible lymph nodes averaging 0.5 cm in greatest dimension. The specimens are submitted in toto in one cassette. [facility]03/08/2017 [facility]03/08/2017
--- NOTE | 2017-03-09 14:59 | PN ---
Progress Note (short form) - Note Progress Note: Thoracic Surgery: POD#1 s/p left vats upper lobe. OOB to chair. Had rapid afib. Risk secondary to MR/TR and lobectomy. Would hold anticoagulation (other than sqh) for at least 1 week. Appreciate cards and renal consults. Continue chest tube. Appears to diurese through chest tube, when drainage <250, will remove. Chest PT, ambulate.
--- NOTE | 2017-03-09 16:08 | PN ---
Progress Note, Physician Chief Complaint: AWAKE, C/O DYSPHAGIA THROAT PAIN POST-EXTUBATION COUGHING CARDIOLOGY NOTE REVIEWED - Current Medication List Current Medications: Active Medications Acetaminophen (Tylenol -) 650 mg PO Q4H PRN PRN Reason: FEVER OR PAIN Last Admin: 03/08/17 21:28 Dose: 650 mg Aclidinium [place] (Tudorza -) 1 puff IH BID [facility] Last Admin: 03/09/17 11:00 Dose: 1 puff Benzocaine/Menthol (Cepacol Lozenge -) 1 each MM PRN PRN PRN Reason: SORE THROAT Diltiazem HCl (Cardizem -) 60 mg PO Q6HPO ANNA Last Admin: 03/09/17 12:32 Dose: 60 mg Docusate Sodium (Colace Liquid -) 100 mg PO Q8H-IV ANNA Last Admin: 03/09/17 09:32 Dose: 100 mg Fentanyl (Sublimaze Injection -) 25 mcg IVPUSH [id number] PRN PRN Reason: PAIN Stop: 03/11/17 12:24 Last Admin: 03/08/17 14:00 Dose: 25 mcg Fentanyl/Bupivacaine/Sodium Chlor (Bupivicaine 0.125%/Fentanyl 2mcg/Ml Pcea -) 50 ml EP ASDIR ANNA PRN Reason: Protocol Last Admin: 03/09/17 09:36 Dose: 50 ml Heparin Sodium (Porcine) (Heparin -) 5,000 unit SQ BID ANNA Last Admin: 03/09/17 09:32 Dose: 5,000 unit Sodium Chloride (Normal Saline -) 1,000 mls @ 75 mls/hr IV ASDIR [facility] Last Admin: 03/09/17 01:00 Dose: 75 mls/hr Cefazolin Sodium (Ancef 1 Gm Premixed Ivpb -) 50 mls @ 100 mls/hr IVPB Q8H-IV [facility] Stop: 03/10/17 01:59 Last Admin: 03/09/17 09:32 Dose: 100 mls/hr Ipratropium [place] (Atrovent 0.02% Nebulizer -) 1 amp NEB QIDR ANNA Last Admin: 03/09/17 11:14 Dose: 1 amp - Objective Vital Signs: Vital Signs Temperature 98.6 F 03/09/17 13:16 Pulse Rate 88 03/09/17 13:16 Respiratory Rate 18 03/09/17 13:16 Blood Pressure 121/83 03/09/17 13:16 O2 Sat by Pulse Oximetry (%) 90 L 03/09/17 10:36 Constitutional: Yes: Mild Distress Eyes: Yes: WNL HENT: Yes: Hoarseness Neck: Yes: WNL Cardiovascular: Yes: Tachycardia, Pulse Irregular Respiratory: Yes: Cough, On Nasal O2, Rhonchi Gastrointestinal: Yes: WNL Genitourinary: Yes: WNL Musculoskeletal: Yes: Muscle Weakness Edema: Yes Peripheral Pulses WNL: Yes Integumentary: Yes: Other Wound/Incision: Yes: Dressing Dry and Intact, Draining Neurological: Yes: WNL ...Motor Strength: LLE, RLE Psychiatric: Yes: Other Labs: CBC, BMP 03/09/17 05:00 03/09/17 05:00 INR, PTT INR 0.93 (0.82-1.09) 03/07/17 21:40 Problem List - Problems (1) Abdominal aneurysm Code(s): I71.4 - ABDOMINAL AORTIC ANEURYSM, WITHOUT RUPTURE (2) COPD (chronic obstructive pulmonary disease) Code(s): J44.9 - CHRONIC OBSTRUCTIVE PULMONARY DISEASE, UNSPECIFIED (3) Chronic renal disease Code(s): N18.9 - CHRONIC KIDNEY DISEASE, UNSPECIFIED Qualifiers: (4) Hypertension Code(s): I10 - ESSENTIAL (PRIMARY) HYPERTENSION Qualifiers: (5) Lung malignancy Code(s): C34.90 - MALIGNANT NEOPLASM OF UNSP PART OF UNSP BRONCHUS OR LUNG (6) Tobacco use Code(s): Z72.0 - TOBACCO USE Assessment/Plan CARDIOLOGY NOTE REVIEWED, ORIGINAL ECHO WAS READ POSSIBLY CARDIAC TUMOR VS VEGETATION? THE ECHO WAS REVIEWED BY DR PAT, DR ROLLE, DR MCDUFFIE ALL CLEARED THE PATIENT FOR SURGERY LAST WEEK. DOUBT THIS IS ENDOCARDITIS, BUT WILL HAVE BLOOD CULTURES AND ID CONSULT. NEBS 02 SUPPORT PAIN CONTROL ENT CONSULT FOR POST EXTUBATION DYSPHAGIA KEEP IN ICU DRAINING SANGUINOS FLUID FROM CHEST TUBE
[2017-03-09] MEDS ORDERED: PT OWN MED DRAWER 7, Y5N ONE ×2 (16:37→17:33)
[2017-03-09] MEDS ORDERED: methylPREDNISolone NA SUCC 125 MG/2 ML VIAL IVPB ONE (18:51)
--- NOTE | 2017-03-09 19:00 | PN ---
Progress Note (short form) - Note Progress Note: Called by nurse due to patient having worsening sob. Patient states that she feel like she is having a "episode" of bronchitis. POD #2 s/p lobectomy secondary to lung malignancy. PE: Lungs: bilateral scattered rhonchi; exp wheeze; inspiratory/expiratory crackles LLL CXR from this am evident for increased LLL #SOB -cont bronchodilators -solumedrol 125mg IVPB -NC keep O2> 92% -decreased fluids; patient eating and drinking improved; -monitor chest tube output -incentive spirometry -repeat CXR in am -ENT consult was ordered earlier for eval
[2017-03-09] MEDS ORDERED: LORazepam 2 MG/ML SDV VIAL ONE (21:39)
[2017-03-09] MEDS ORDERED: LORazepam 2 MG/ML SDV VIAL IVPUSH ONE (22:00)
[2017-03-10] MEDS: IPRATROPIUM BR 0.02% 0.5 MG/2.5 ML VIAL.NEB. NEB SCH ×4 (00:03→19:34)
[2017-03-10] MEDS: dilTIAZem HCL 60 MG TABLET (FP) PO SCH ×4 (00:12→18:30)
[2017-03-10] MEDS: DOCUSATE NA 100 MG/10 ML UNIT-DOSE CUPS PO SCH ×2 (01:56→11:00)
[2017-03-10 06:11] LABS: MCHC 34.3 g/dl (32.0-36.0); MEAN CELL VOLUME 90.4 fl (80-96); MEAN PLT VOLUME 8.4 fl (7.5-11.1); PLATELET COUNT 232 K/MM3 (134-434); RDW 14.1 % (11.6-15.6)
[2017-03-10 06:36] LABS: ANION GAP 10 (8-16); CALCIUM 7.8 mg/dL (8.5-10.1); CO2 19 mmol/L (21-32); GLUCOSE,RANDOM 147 mg/dL (74-106)
--- NOTE | 2017-03-10 07:20 | PN ---
Physical Exam: SUBJECTIVE: Patient seen and examined by me this AM - WBC downtrending. Afebrile. POD2. - Episode of dyspnea/wheezing yesterday evening. Significant I/E wheezing. Received 120 mg Medrol IV. Breathing improved. Slept well overnight. - Breathing and pain control improved since yesterday. Still complaining of "bronchitis". Claims cannot use IS due to chest congestion. - CT with continual drainage. Total output by round 1.2 L. PM: - PT OOB to chair given one episde of hypotension, epidural. - Plan for transfer to [facility] tomorrow. - ID consulted to r/o IE per prior equivalent echo report of mass on tricuspid valve. Repeat TTE, blood cx's ordered. - Epidural gtt removed by anesthesia. PO pain control. OBJECTIVE: Vital Signs Intake & Output 03/07/17 03/08/17 03/09/17 03/10/17 23:59 23:59 23:59 23:59 Intake Total 600 2275 2510 804 Output Total 950 2700 1300 Balance 600 1325 -190 -496 Weight 68.039 kg 68.294 kg 72.66 kg 71.412 kg Period Temp Pulse Resp BP Sys/Sellers Pulse Ox Last 24 Hr 98 F-99 F 80-140 15-22 96-137/64-89 80-100 GENERAL: The patient is awake, alert, and fully oriented, vociferous regarding concerns w/ care. HEAD: Normal with no signs of trauma. EYES: sclera anicteric, conjunctiva clear. No ptosis. ENT: Ears normal, nares patent, oropharynx clear without exudates, moist mucous membranes. NECK: Trachea midline, full range of motion, supple. LUNGS: Increased BL upper lobe congestion, diffuse rhonchi BL. Significant I/E wheezing. CT in place on L side, no erythema/bleeding at site, draining freely HEART: Irregular rate, S1, S2 without murmur, rub or gallop. ABDOMEN: Soft, nontender, nondistended, hypoactive bowel sounds, no guarding, no rebound, no hepatosplenomegaly, no masses. EXTREMITIES: 2+ pulses, warm, well-perfused, no edema. NEUROLOGICAL: Cranial nerves II through XII grossly intact. Normal speech, gait not observed. Laboratory Results - last 24 hr CBC, BMP 03/10/17 05:00 03/10/17 05:00 03/10/17 03/10/17 05:00 05:00 WBC 9.0 D RBC 3.92 Hgb 12.2 Hct 35.5 MCV 90.4 MCH 31.0 MCHC 34.3 RDW 14.1 Plt Count 232 MPV 8.4 Sodium 136 Potassium 4.4 Chloride 107 Carbon Dioxide 19 L Anion Gap 10 BUN 59 H Creatinine 3.0 H Random Glucose 147 H D Calcium 7.8 L Active Medications Generic Name Dose Route Start Last Admin Trade Name Freq PRN Reason Stop Dose Admin Acetaminophen 650 mg 03/07/17 20:32 03/08/17 21:28 Tylenol - PO 650 mg Q4H PRN Administration FEVER OR PAIN Aclidinium [place] 1 puff 03/09/17 10:00 03/09/17 21:29 Tudorza - IH 1 puff BID ANNA Administration Benzocaine/Menthol 1 each 03/09/17 13:15 Cepacol Lozenge - MM PRN PRN SORE THROAT Diltiazem HCl 60 mg 03/09/17 12:00 03/10/17 06:04 Cardizem - PO 60 mg Q6HPO ANNA Administration Docusate Sodium 100 mg 03/08/17 18:00 03/10/17 01:56 Colace Liquid - PO 100 mg Q8H-IV ANNA Administration Fentanyl 25 mcg 03/08/17 12:23 03/08/17 14:00 Sublimaze Injection - IVPUSH 03/11/17 12:24 25 mcg [id number] PRN Administration PAIN Fentanyl/Bupivacaine/Sodium Chlor 50 ml 03/08/17 20:15 03/09/17 21:28 Bupivicaine 0.125%/Fentanyl 2mcg/Ml Pcea - EP Not Given ASDIR [facility] Protocol Heparin Sodium (Porcine) 5,000 unit 03/07/17 22:00 03/09/17 21:29 Heparin - SQ 5,000 unit BID ANNA Administration Sodium Chloride 1,000 mls @ 42 mls/hr 03/09/17 18:52 03/09/17 18:56 Normal Saline - IV 42 mls/hr ASDIR ANNA Administration Ipratropium [place] 1 amp 03/08/17 12:00 03/10/17 06:42 Atrovent 0.02% Nebulizer - NEB 1 amp QIDR ANNA Administration Microbiology 03/09/17 15:30 Blood - Peripheral Venous Blood Culture - Preliminary NO GROWTH OBTAINED AFTER 24 HOURS, INCUBATION TO CONTINUE FOR 4 DAYS. 03/09/17 15:30 Blood - Peripheral Venous Blood Culture - Preliminary NO GROWTH OBTAINED AFTER 24 HOURS, INCUBATION TO CONTINUE FOR 4 DAYS. 03/07/17 21:45 Urine - Urine Clean Catch Urine Culture - Final NO GROWTH OBTAINED Recent Imaging: CXR (03/09) - No pneumo. Left basilar atelectasis. Left chest tube in place. Increased left lower lung markings. CXR (03/10) - CXR w/ no significant interval change. Chest tube in place. Significant LL lung opacity, atelectasis. No pneumo. ASSESSMENT/PLAN: 76 yo F smoker w/ pmhx of COPD, CKD, currently s/p L VATS/OSVALDO lobectomy and admitted to ICU for further post-op management. Pt doing well, ambulating bed to chair, now w/ epidural removal by anesthesia and PO meds for pain control. 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 Continue to monitor hemodynamic status and pain control, w/ plan for transfer to [facility] in AM tomorrow. #Neuro - Epidural MAINTENANCE LEADER for pain control, tylenol 650 q4h PRN - Cepacol lozenges for throat pain PRN #Cardiac - Cadiology recs greatly appreciated. 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 Suspicion of IE. - Serial blood cx's - Will inform PCP, Dr. Truong of cardiology recs - Rate control #Pulm - O2 2L NC. Titrate to >94%. Pt complains that NC "dries her out". Noncompliant. Has been satting well (94%) on RA. - Medrol 40mg IV daily - Incentive spirometer - Tudorza 1 puff BID, Atrovent - Inhaled bronchodilators - Pt counseling on smoking cessation - Removed CT at output <250 per surgical team - ENT consulted, scoped. Mild hyperemia of R vocal cord, no masses or lesions #ID - Ancef d/c'ed - WBC's continues to downtrending from 15.5 -> 9.0. On steroids. - f/u serial blood cx's for IE - ID following. Will f/u recs. #Renal - Good UOP via fernández - mild hyperK resolved (4.4) - BUN/Cr (59/3.0). No significant change since admission. - Strict Is&Os - Monitor lytes. Trend BUN/Cr, K #Heme -Monitor H/H - Plan to restart AC (afib) when cleared by surgical team #GI - Senna, Colace for constipation - Monitor for return of bowel function #FEN -Fluids: 75cc/hr -Electrolytes: Daily BMPs, Trend BUN/Cr -Nutrition: Clears, advance as tolerated #PPX -SubQ Heparin, SCDs for DVT ppx -PPI for GI ppx #Dispo - Dispo to ICU for today, transfer to tele in AM tomorrow. Kasi Rojas, PGY1 Plan discussed with attending, Dr. Larry Visit type - Emergency Visit Emergency Visit: No - New Patient This patient is new to me today: No - Critical Care Critical Care patient: Yes Total Critical Care Time (in minutes): 35 Critical Care Statement: The care of this patient involved high complexity decision making to prevent further life threatening deterioration of the patient 's condition and/or to evaluate & treat vital organ system(s) failure or risk of failure.
--- NOTE | 2017-03-10 08:24 | PN ---
Progress Note (short form) - Note Progress Note: POD #2 Alert. Sitting in bed. States she feels much better today compared to yesterday when I saw her. Her CxT is on waterseal for past 24 hours...tolerated without complaint. Hasn't been out of bed yet. Fernández remains. Mild incisional tenderness. Pain control via epidural cath. Denies n/v/f/c, CP or SOB. Last Vital Signs Temp Pulse Resp BP Pulse Ox 98.9 F 99 H 18 99/74 99 03/10/17 06:00 03/10/17 06:00 03/10/17 06:00 03/10/17 06:00 03/09/17 19:50 CBC, BMP 03/10/17 05:00 03/10/17 05:00 OUTPUT TREND 03/09/17 03/09/17 03/10/17 06:00 18:14 06:00 Left Chest tube 625 175 200 CXR 03/10: no ptx. chest tube in good position. residual subcu emphysema resolving. Gen: alert. nad Chest: Incisions c/d/i. CxT no air leak. : fernández to gravity (clear) LE: SCDs bilat. Problem List - Problems (1) Lung malignancy Assessment/Plan: Chest tube to remain on waterseal --> when drainage <250, will remove Out of bed and ambulate with PT Rapid afib --> risk secondary to MR/TR and lobectomy. Would hold AC (other than sqh) for at least 1 week. f/u Cardio & Renal Consults Once epidural cath is removed she can be downgraded to tele Above plan discussed with Dr. Wheat and agrees Code(s): C34.90 - MALIGNANT NEOPLASM OF UNSP PART OF UNSP BRONCHUS OR LUNG
--- NOTE | 2017-03-10 09:53 | PN ---
Progress Note, Physician Chief Complaint: AWAKE ALERT FEELING BETTER CHEST PAIN IMPROVING POST-OP NO PALPITATIONS TOLERATING PO DIET THROAT FEELS BETTER TODAY - Current Medication List Current Medications: Active Medications Acetaminophen (Tylenol -) 650 mg PO Q4H PRN PRN Reason: FEVER OR PAIN Last Admin: 03/08/17 21:28 Dose: 650 mg Aclidinium [place] (Tudorza -) 1 puff IH BID [facility] Last Admin: 03/09/17 21:29 Dose: 1 puff Benzocaine/Menthol (Cepacol Lozenge -) 1 each MM PRN PRN PRN Reason: SORE THROAT Diltiazem HCl (Cardizem -) 60 mg PO Q6HPO [facility] Last Admin: 03/10/17 06:04 Dose: 60 mg Docusate Sodium (Colace Liquid -) 100 mg PO Q8H-IV [facility] Last Admin: 03/10/17 01:56 Dose: 100 mg Fentanyl (Sublimaze Injection -) 25 mcg IVPUSH [id number] PRN PRN Reason: PAIN Stop: 03/11/17 12:24 Last Admin: 03/08/17 14:00 Dose: 25 mcg Fentanyl/Bupivacaine/Sodium Chlor (Bupivicaine 0.125%/Fentanyl 2mcg/Ml Pcea -) 50 ml EP ASDIR ANNA PRN Reason: Protocol Last Admin: 03/09/17 21:28 Dose: Not Given Heparin Sodium (Porcine) (Heparin -) 5,000 unit SQ BID [facility] Last Admin: 03/09/17 21:29 Dose: 5,000 unit Sodium Chloride (Normal Saline -) 1,000 mls @ 42 mls/hr IV ASDIR [facility] Last Admin: 03/09/17 18:56 Dose: 42 mls/hr Ipratropium [place] (Atrovent 0.02% Nebulizer -) 1 amp NEB QIDR [facility] Last Admin: 03/10/17 06:42 Dose: 1 amp - Objective Vital Signs: Vital Signs Temperature 98.9 F 03/10/17 06:00 Pulse Rate 87 03/10/17 08:00 Respiratory Rate 18 03/10/17 08:00 Blood Pressure 103/72 03/10/17 08:00 O2 Sat by Pulse Oximetry (%) 99 03/09/17 19:50 Constitutional: Yes: Mild Distress Eyes: Yes: WNL HENT: Yes: WNL Neck: Yes: WNL Cardiovascular: Yes: Pulse Irregular Respiratory: Yes: Cough, On Nasal O2, SOB Gastrointestinal: Yes: WNL Genitourinary: Yes: WNL Musculoskeletal: Yes: Back Pain Extremities: Yes: WNL Edema: No Peripheral Pulses WNL: Yes Integumentary: Yes: WNL Wound/Incision: Yes: Dressing Dry and Intact, Draining Neurological: Yes: WNL ...Motor Strength: LLE, RLE Psychiatric: Yes: WNL, Other Labs: CBC, BMP 03/10/17 05:00 03/10/17 05:00 INR, PTT INR 0.93 (0.82-1.09) 03/07/17 21:40 Problem List - Problems (1) Abdominal aneurysm Code(s): I71.4 - ABDOMINAL AORTIC ANEURYSM, WITHOUT RUPTURE (2) COPD (chronic obstructive pulmonary disease) Code(s): J44.9 - CHRONIC OBSTRUCTIVE PULMONARY DISEASE, UNSPECIFIED (3) Chronic renal disease Code(s): N18.9 - CHRONIC KIDNEY DISEASE, UNSPECIFIED Qualifiers: (4) Hypertension Code(s): I10 - ESSENTIAL (PRIMARY) HYPERTENSION Qualifiers: (5) Lung malignancy Code(s): C34.90 - MALIGNANT NEOPLASM OF UNSP PART OF UNSP BRONCHUS OR LUNG Qualifiers: Laterality: left (6) Tobacco use Code(s): Z72.0 - TOBACCO USE Assessment/Plan CARDIAC RATE CONTROL WITH CARDIZEM MONITOR BP ANTICOAGULATE 7 DAYS POST OP POD #2 TODAY RECOVERY ON [facility] ENT F/U APPRECIATED R VOCAL CORD TRAUMA POST EXTUBATION LABS REVIEWED PT EVAL OOB TO CHAIR
[2017-03-10] MEDS: ACLIDINIUM BROMIDE 400 MCG/INH AERO.POWD IH SCH ×2 (11:00→21:51)
[2017-03-10] MEDS: HEPARIN NA (PORCINE) 5,000 UNITS/ML 1ML VIAL SQ SCH ×2 (11:00→21:46)
--- NOTE | 2017-03-10 11:27 | PN ---
Progress Note, Physician History of Present Illness: Pt seen and examined at bedside. She is awake and alert. She says that she feels much better today than she felt yesterday. She denies chest pain. - Current Medication List Current Medications: Active Medications Acetaminophen (Tylenol -) 650 mg PO Q4H PRN PRN Reason: FEVER OR PAIN Last Admin: 03/08/17 21:28 Dose: 650 mg Aclidinium [place] (Tudorza -) 1 puff IH BID [facility] Last Admin: 03/09/17 21:29 Dose: 1 puff Benzocaine/Menthol (Cepacol Lozenge -) 1 each MM PRN PRN PRN Reason: SORE THROAT Diltiazem HCl (Cardizem -) 60 mg PO Q6HPO [facility] Last Admin: 03/10/17 06:04 Dose: 60 mg Docusate Sodium (Colace Liquid -) 100 mg PO Q8H-IV [facility] Last Admin: 03/10/17 01:56 Dose: 100 mg Fentanyl (Sublimaze Injection -) 25 mcg IVPUSH [id number] PRN PRN Reason: PAIN Stop: 03/11/17 12:24 Last Admin: 03/08/17 14:00 Dose: 25 mcg Fentanyl/Bupivacaine/Sodium Chlor (Bupivicaine 0.125%/Fentanyl 2mcg/Ml Pcea -) 50 ml EP ASDIR [facility] PRN Reason: Protocol Last Admin: 03/09/17 21:28 Dose: Not Given Heparin Sodium (Porcine) (Heparin -) 5,000 unit SQ BID [facility] Last Admin: 03/09/17 21:29 Dose: 5,000 unit Sodium Chloride (Normal Saline -) 1,000 mls @ 42 mls/hr IV ASDIR [facility] Last Admin: 03/09/17 18:56 Dose: 42 mls/hr Ipratropium [place] (Atrovent 0.02% Nebulizer -) 1 amp NEB QIDR [facility] Last Admin: 03/10/17 06:42 Dose: 1 amp - Objective Vital Signs: Vital Signs Temperature 98.9 F 03/10/17 06:00 Pulse Rate 88 03/10/17 10:00 Respiratory Rate 18 03/10/17 10:00 Blood Pressure 92/73 03/10/17 10:00 O2 Sat by Pulse Oximetry (%) 99 03/09/17 19:50 Constitutional: Yes: Calm Eyes: Yes: Conjunctiva Clear HENT: Yes: Atraumatic Cardiovascular: Yes: S1, S2 Respiratory: Yes: Other (chest tube in place) Genitourinary: Yes: WNL Musculoskeletal: Yes: WNL Edema: No Neurological: Yes: Oriented Psychiatric: Yes: Oriented Labs: CBC, BMP 03/10/17 05:00 03/10/17 05:00 INR, PTT INR 0.93 (0.82-1.09) 03/07/17 21:40 - ....Imaging Chest X-ray: Report Reviewed Problem List - Problems (1) Abdominal aneurysm Code(s): I71.4 - ABDOMINAL AORTIC ANEURYSM, WITHOUT RUPTURE (2) COPD (chronic obstructive pulmonary disease) Code(s): J44.9 - CHRONIC OBSTRUCTIVE PULMONARY DISEASE, UNSPECIFIED (3) Chronic renal disease Code(s): N18.9 - CHRONIC KIDNEY DISEASE, UNSPECIFIED Qualifiers: (4) Hypertension Code(s): I10 - ESSENTIAL (PRIMARY) HYPERTENSION Qualifiers: (5) Lung malignancy Code(s): C34.90 - MALIGNANT NEOPLASM OF UNSP PART OF UNSP BRONCHUS OR LUNG (6) Tobacco use Code(s): Z72.0 - TOBACCO USE Assessment/Plan Current Medications Generic Name Dose Route Start Last Admin Trade Name Freq PRN Reason Stop Dose Admin Acetaminophen 650 mg 03/07/17 20:32 03/08/17 21:28 Tylenol - PO 650 mg Q4H PRN Administration FEVER OR PAIN Aclidinium [place] 1 puff 03/09/17 10:00 03/09/17 21:29 Tudorza - IH 1 puff BID ANNA Administration Benzocaine/Menthol 1 each 03/09/17 13:15 Cepacol Lozenge - MM PRN PRN SORE THROAT Diltiazem HCl 60 mg 03/09/17 12:00 03/10/17 06:04 Cardizem - PO 60 mg Q6HPO ANNA Administration Docusate Sodium 100 mg 03/08/17 18:00 03/10/17 01:56 Colace Liquid - PO 100 mg Q8H-IV ANNA Administration Fentanyl 25 mcg 03/08/17 12:23 03/08/17 14:00 Sublimaze Injection - IVPUSH 03/11/17 12:24 25 mcg [id number] PRN Administration PAIN Fentanyl/Bupivacaine/Sodium Chlor 50 ml 03/08/17 20:15 03/09/17 21:28 Bupivicaine 0.125%/Fentanyl 2mcg/Ml Pcea - EP Not Given ASDIR [facility] Protocol Heparin Sodium (Porcine) 5,000 unit 03/07/17 22:00 03/09/17 21:29 Heparin - SQ 5,000 unit BID ANNA Administration Sodium Chloride 1,000 mls @ 42 mls/hr 03/09/17 18:52 03/09/17 18:56 Normal Saline - IV 42 mls/hr ASDIR ANNA Administration Ipratropium [place] 1 amp 03/08/17 12:00 03/10/17 06:42 Atrovent 0.02% Nebulizer - NEB 1 amp QIDR ANNA Administration Impression 1. CKD 2. AAA 3. lung cancer 4. HTN 5. hyperkalemia Plan - renal function is stable - cts follow up - monitor pulse ox - monitor chest tube output - repeat labs in am - will follow Dr Shearer
[2017-03-10] MEDS ORDERED: SODIUM CHLORIDE 500 ML IV STA (11:56)
[2017-03-10] MEDS ORDERED: methylPREDNISolone NA SUCC 40 MG/1 ML VIAL IVPB SCH (12:00)
--- NOTE | 2017-03-10 12:41 | PN ---
Teaching Attending Note Name of Resident: Kasi Rojas ATTENDING PHYSICIAN STATEMENT I saw and evaluated the patient. I reviewed the resident's note and discussed the case with the resident. I agree with the resident's findings and plan as documented. SUBJECTIVE: Pt seen and examined in the ICU. Pain better controlled. Given medrol overnight due to respiratory distress. Chest tube to water seal. OBJECTIVE: Last Vital Signs Temp Pulse Resp BP Pulse Ox 98.9 F 86 18 117/78 99 03/10/17 06:00 03/10/17 12:00 03/10/17 12:00 03/10/17 12:00 03/09/17 19:50 Intake & Output 03/07/17 03/08/17 03/09/17 03/10/17 23:59 23:59 23:59 23:59 Intake Total 600 2275 2510 804 Output Total 950 2700 1300 Balance 600 1325 -190 -496 Weight 150 lb 150 lb 9 oz 160 lb 3 oz 157 lb 7 oz Gen: NAD at rest Heart: RRR Lung: bilateral wheezes, rhonchi Abd: soft, nontender Ext: no edema Chest tube: serosanguinous drainage, no air leak CBC, BMP 03/10/17 05:00 03/10/17 05:00 Active Medications Acetaminophen (Tylenol -) 650 mg PO Q4H PRN PRN Reason: FEVER OR PAIN Last Admin: 03/08/17 21:28 Dose: 650 mg Aclidinium [place] (Tudorza -) 1 puff IH BID ANNA Last Admin: 03/10/17 11:00 Dose: 1 puff Benzocaine/Menthol (Cepacol Lozenge -) 1 each MM PRN PRN PRN Reason: SORE THROAT Diltiazem HCl (Cardizem -) 60 mg PO Q6HPO ANNA Last Admin: 03/10/17 06:04 Dose: 60 mg Docusate Sodium (Colace Liquid -) 100 mg PO Q8H-IV ANNA Last Admin: 03/10/17 11:00 Dose: Not Given Fentanyl (Sublimaze Injection -) 25 mcg IVPUSH [id number] PRN PRN Reason: PAIN Stop: 03/11/17 12:24 Last Admin: 03/08/17 14:00 Dose: 25 mcg Fentanyl/Bupivacaine/Sodium Chlor (Bupivicaine 0.125%/Fentanyl 2mcg/Ml Pcea -) 50 ml EP ASDIR [facility] PRN Reason: Protocol Last Admin: 03/09/17 21:28 Dose: Not Given Heparin Sodium (Porcine) (Heparin -) 5,000 unit SQ BID [facility] Last Admin: 03/10/17 11:00 Dose: 5,000 unit Sodium Chloride (Normal Saline -) 1,000 mls @ 42 mls/hr IV ASDIR [facility] Last Admin: 03/09/17 18:56 Dose: 42 mls/hr Ipratropium [place] (Atrovent 0.02% Nebulizer -) 1 amp NEB QIDR [facility] Last Admin: 03/10/17 11:30 Dose: 1 amp Methylprednisolone Sodium Succinate (Solu-Medrol -) 40 mg IVPB DAILY [facility] ASSESSMENT AND PLAN: NSCLC (Squamous Cell) s/p L VATS/OSVALDO lobectomy COPD Atrial fibrillation with RVR Mitral Regurgitation Smoker - pain control - incentive spirometry - inhaled bronchodilators - medrol 40mg daily - O2 to keep SpO2 >90% - rate control - start anticoagulation when ok with surgery - PO as tolerated - DVT prophylaxis
--- NOTE | 2017-03-10 12:46 | CON.ENT ---
Consult Consult Specialty:: ENT Referred by:: Dr Truong Reason for Consultation:: Throat pain and hoarseness - History of Present Illness Chief Complaint: Sore throat and hoarseness after intubation History of Present Illness: 76 yo female with Lung CA complaining of sore throat, trouble swallowing and hoarseness after GA/intubation for recent bronchoscopy and lobectomy. She is now feeling better today vs yesterday. She notes a raspy voice and throat mucus since the procedure. She denies any significant voice, throat or swallowing issue prior. She is a long time smoker who notes a hx of nasal drip and irritation due to smoking. - History Source History Provided By: Patient Limitations to Obtaining History: No Limitations - Past Medical History Cardio/Vascular: Yes: AFIB, Aneurysm, HTN Pulmonary: Yes: COPD, Other (LUNG MASS) Gastrointestinal: Yes: GERD Renal/: Yes: Renal Failure Rheumatology: Yes: Other Endocrine: Yes: Hyperparathyroidism (Hearing loss) - Past Surgical History Past Surgical History: Yes: Thoracotomy - Alcohol/Substance Use Hx Alcohol Use: Yes (SOCIAL) - Smoking History Smoking history: Current every day smoker Have you smoked in the past 12 months: Yes Aproximately how many cigarettes per day: 20 If you are a former smoker, when did you quit?: 1 week ago Home Medications - Allergies Allergies/Adverse Reactions: Allergies Allergy/AdvReac Type Severity Reaction Status Date / Time hydromorphone HCl AdvReac Vomiting Verified 03/07/17 13:54 [From Dilaudid] - Home Medications Home Medications: Ambulatory Orders Amlodipine Besylate 10 mg PO HS 02/08/17 Lorazepam [Ativan] 0.5 mg PO HS 03/07/17 Family Disease History - Family Disease History Family History: Unremarkable Review of Systems - Review of Systems HENT: reports: Hearing Loss, Throat Pain, Other (hoarseness) Physical Exam-ENT Vital Signs: Vital Signs Temperature 98.9 F 03/10/17 06:00 Pulse Rate 86 03/10/17 12:00 Respiratory Rate 18 03/10/17 12:00 Blood Pressure 117/78 03/10/17 12:00 O2 Sat by Pulse Oximetry (%) 99 03/09/17 19:50 Constitutional: Yes: No Distress Head: Yes: WNL Face: Yes: WNL Eyes: Yes: WNL Nose: Yes: Pale Nasal Passage: Yes: Pale Oral/Pharynx: Yes: Other (upper dentures) Outer Ear: Yes: WNL Ear Canal: Yes: WNL Tympanic Membrane: Yes: WNL Neck: Yes: WNL Respiratory: Yes: Other (chest tube) Neurological: Yes: Cran Nerves II-XII Intact Imaging - Results Chest X-ray: Report Reviewed Problem List - Problems (1) Lung malignancy Code(s): C34.90 - MALIGNANT NEOPLASM OF UNSP PART OF UNSP BRONCHUS OR LUNG Qualifiers: Laterality: left (2) Hoarseness Assessment/Plan: Pt with sore throat/hoarseness/trouble swallowing after intubation- slowly resolving. Normal VC motion noted on fiberoptic exam. Mild right VC trauma noted , observation recommended. Follow-up with ENT upon discharge. Code(s): R49.0 - DYSPHONIA Procedure Note Procedure: Verbal consent obtained from patient to perform a Flexible Laryngoscopy. Topical anesthetic/decongestant sprayed intra-nasally. Flexible scope easily passed through her right nostril into her nasopharnx then hypopharynx. No lesions or infection noted. Normal Vocal cord motion present. Mild hyperemia and edema of right VC. No significant edema noted. Scope was then withdrawn, Pt tolerated procedure well
[2017-03-10] MEDS ORDERED: ACETAMINOPHEN 325 MG TABLET (FP) PO PRN (13:32)
--- NOTE | 2017-03-10 13:52 | CON.ID ---
Consult Consult Specialty:: infwectious diseases Reason for Consultation:: r/o endocarditits - History of Present Illness History of Present Illness: Pt is a 76 year old female with pmhx of AAA, HTN, and CKD who was admitted for VATs procedure. I was called to evaluate her to r/o endocarditits. She had the VATS done and has a chest tube. patient in the icu according to the history patient had echo done previously and there was a suspicion of something on one of the valves patient has been a chronic smoker and now is post op patient denies any fever or any other issues also patient has been doing well post op patient received preop abx and she has not been on any abx at this moment - History Source History Provided By: Patient Limitations to Obtaining History: No Limitations - Past Medical History Cardio/Vascular: Yes: AFIB, Aneurysm, HTN Pulmonary: Yes: COPD, Other (LUNG MASS) Gastrointestinal: Yes: GERD Renal/: Yes: Renal Failure Rheumatology: Yes: Other Endocrine: Yes: Hyperparathyroidism (Hearing loss) - Past Surgical History Past Surgical History: Yes: Thoracotomy - Alcohol/Substance Use Hx Alcohol Use: Yes (SOCIAL) - Smoking History Smoking history: Current every day smoker Have you smoked in the past 12 months: Yes Aproximately how many cigarettes per day: 20 If you are a former smoker, when did you quit?: 1 week ago Home Medications - Allergies Allergies/Adverse Reactions: Allergies Allergy/AdvReac Type Severity Reaction Status Date / Time hydromorphone HCl AdvReac Vomiting Verified 03/07/17 13:54 [From Dilaudid] - Home Medications Home Medications: Ambulatory Orders Amlodipine Besylate 10 mg PO HS 02/08/17 Lorazepam [Ativan] 0.5 mg PO HS 03/07/17 Review of Systems - Review of Systems Constitutional: reports: No Symptoms Eyes: reports: No Symptoms HENT: reports: No Symptoms Neck: reports: No Symptoms Cardiovascular: reports: No Symptoms Respiratory: reports: SOB, SOB on Exertion Gastrointestinal: reports: No Symptoms Genitourinary: reports: No Symptoms Musculoskeletal: reports: No Symptoms Integumentary: reports: No Symptoms Neurological: reports: No Symptoms Endocrine: reports: No Symptoms Hematology/Lymphatic: reports: No Symptoms Psychiatric: reports: No Symptoms Physical Exam Vital Signs: Vital Signs Temperature 98.9 F 03/10/17 06:00 Pulse Rate 86 03/10/17 12:00 Respiratory Rate 18 03/10/17 12:00 Blood Pressure 117/78 03/10/17 12:00 O2 Sat by Pulse Oximetry (%) 99 03/09/17 19:50 Constitutional: Yes: Well Nourished, No Distress, Calm Cardiovascular: Yes: Regular Rate and Rhythm Respiratory: Yes: Regular, Poor Air Entry, Other (chest tube in place draining a lot) Gastrointestinal: Yes: Normal Bowel Sounds, Soft Musculoskeletal: Yes: WNL Extremities: Yes: WNL Neurological: Yes: Alert, Oriented Psychiatric: Yes: Alert, Oriented Labs: CBC, BMP 03/10/17 05:00 03/10/17 05:00 Imaging - Results Chest X-ray: Report Reviewed, Image Reviewed Assessment/Plan Problem List - Problems (1) Abdominal aneurysm Code(s): I71.4 - ABDOMINAL AORTIC ANEURYSM, WITHOUT RUPTURE (2) COPD (chronic obstructive pulmonary disease) Code(s): J44.9 - CHRONIC OBSTRUCTIVE PULMONARY DISEASE, UNSPECIFIED (3) Chronic renal disease Code(s): N18.9 - CHRONIC KIDNEY DISEASE, UNSPECIFIED Qualifiers: (4) Hypertension Code(s): I10 - ESSENTIAL (PRIMARY) HYPERTENSION Qualifiers: (5) Lung malignancy Code(s): C34.90 - MALIGNANT NEOPLASM OF UNSP PART OF UNSP BRONCHUS OR LUNG Qualifiers: Laterality: left (6) Tobacco use Code(s): Z72.0 - TOBACCO USE after looking at the history and the thought process clinically patient is not showing any signs pertaining to endocarditis plan continue current mgmt will not start any abx await for blood cx repeat an echo close watch for any fevers rest as per icu and primary cc time 45 min
[2017-03-10] MEDS: DOCUSATE SODIUM 100 MG CAPSULE (FP) PO SCH ×2 (14:00→21:46)
[2017-03-10] MEDS: ACETAMINOPHEN 325 MG TABLET (FP) PO PRN (14:05)
[2017-03-10] MEDS: oxyCODONE HCL 5 MG TABLET PO PRN ×3 (14:05→21:46)
--- NOTE | 2017-03-10 14:46 | PN ---
Progress Note, Physician Chief Complaint: Cardiology FU No dyspnea Telem Afib HR 100-120 History of Present Illness: 76 F with HTn, COPD, previous history of PAF, AAA, CKD 4, Diagnosed with squamous cell lung CA and is electively admitted for lung resection done . ECG showed Afib and she has developed post operative Afib with rapid response. She does not report pain, chest pain, or dyspnea. 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 There have been no fevers or chills. - Current Medication List Current Medications: Active Medications Acetaminophen (Tylenol -) 650 mg PO Q4H PRN PRN Reason: FEVER OR PAIN Last Admin: 03/10/17 14:05 Dose: 650 mg Aclidinium [place] (Tudorza -) 1 puff IH BID [facility] Last Admin: 03/10/17 11:00 Dose: 1 puff Benzocaine/Menthol (Cepacol Lozenge -) 1 each MM PRN PRN PRN Reason: SORE THROAT Diltiazem HCl (Cardizem -) 60 mg PO Q6HPO [facility] Last Admin: 03/10/17 06:04 Dose: 60 mg Docusate Sodium (Colace -) 100 mg PO BID [facility] Fentanyl (Sublimaze Injection -) 25 mcg IVPUSH [id number] PRN PRN Reason: PAIN Stop: 03/11/17 12:24 Last Admin: 03/08/17 14:00 Dose: 25 mcg Heparin Sodium (Porcine) (Heparin -) 5,000 unit SQ BID [facility] Last Admin: 03/10/17 11:00 Dose: 5,000 unit Sodium Chloride (Normal Saline -) 1,000 mls @ 42 mls/hr IV ASDIR [facility] Last Admin: 03/09/17 18:56 Dose: 42 mls/hr Ipratropium [place] (Atrovent 0.02% Nebulizer -) 1 amp NEB QIDR [facility] Last Admin: 03/10/17 11:30 Dose: 1 amp Methylprednisolone Sodium Succinate (Solu-Medrol -) 40 mg IVPB DAILY [facility] Oxycodone HCl (Roxicodone -) 5 mg PO Q3H PRN PRN Reason: MODERATE PAIN Last Admin: 03/10/17 14:05 Dose: 5 mg Oxycodone HCl (Roxicodone -) 10 mg PO Q3H PRN PRN Reason: SEVERE PAIN - Objective Vital Signs: Vital Signs Temperature 97.7 F 03/10/17 14:00 Pulse Rate 88 03/10/17 14:00 Respiratory Rate 18 03/10/17 14:00 Blood Pressure 113/98 03/10/17 14:00 O2 Sat by Pulse Oximetry (%) 99 03/09/17 19:50 Constitutional: Yes: No Distress, Calm Eyes: Yes: Conjunctiva Clear HENT: Yes: Atraumatic, Normocephalic Neck: Yes: Supple, Trachea Midline Cardiovascular: Yes: Tachycardia, Murmur (3/6 SM apex) Respiratory: Yes: Regular Gastrointestinal: Yes: Normal Bowel Sounds, Soft Extremities: Yes: WNL Edema: No Labs: CBC, BMP 03/10/17 05:00 03/10/17 05:00 INR, PTT INR 0.93 (0.82-1.09) 03/07/17 21:40 Problem List - Problems (1) Atrial fibrillation Code(s): I48.91 - UNSPECIFIED ATRIAL FIBRILLATION (2) Cardiac mass Code(s): I51.89 - OTHER ILL-DEFINED HEART DISEASES Assessment/Plan 76 F COPD, AAA, PAF, HTN, lung CA sp resection POD #2 with: 1. postop rapid Afib. 2. 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 Moderate to severe MR/TR with preserved EF. Rec: Please increase diltiazem 90mg Q6H Follow up cultures. AC patient when surgically cleared.
[2017-03-10] MEDS: SODIUM CHLORIDE 1,000 ML IV SCH (21:45)
[2017-03-10] MEDS ORDERED: LORazepam 0.5 MG TABLET PO ONE (22:00)
[2017-03-11] MEDS: IPRATROPIUM BR 0.02% 0.5 MG/2.5 ML VIAL.NEB. NEB SCH ×6 (00:05→23:17)
[2017-03-11] MEDS: dilTIAZem HCL 60 MG TABLET (FP) PO SCH ×2 (00:45→06:13)
[2017-03-11] MEDS: oxyCODONE HCL 5 MG TABLET PO PRN ×4 (04:17→21:39)
--- NOTE | 2017-03-11 07:49 | PN ---
Physical Exam: SUBJECTIVE: Patient seen and examined by me - No major events overnight. Pain control, breathing improved. Complaining of mild lightheadness this AM. Denies fever, CP, N/V, abdominal pain, LE swelling, CROWE, SOB, dyspnea. - Per CT surgery, stop IVFs and consider diuresis per renal recs. POD3. Will d/c 'ed CT tomorrow, given decreased drainage (200cc/24hrs) - Plan for transfer to [facility] today - Epidural removed yesterday by anesthesia. Pain control adequate on PO oxycodone. OBJECTIVE: Vital Signs Intake & Output 03/08/17 03/09/17 03/10/17 03/11/17 23:59 23:59 23:59 23:59 Intake Total 2275 2510 1858 754 Output Total 950 2700 2900 450 Balance 1325 -190 -1042 304 Weight 68.294 kg 72.66 kg 71.412 kg 72.983 kg Period Temp Pulse Resp BP Sys/Sellers Pulse Ox Last 24 Hr 97.7 F-99 F 68-104 10-18 82-129/69-104 94-99 GENERAL: The patient is awake, alert, and fully oriented, vociferous regarding concerns w/ care. HEAD: Normal with no signs of trauma. EYES: Sclera anicteric, conjunctiva clear. No ptosis. ENT: Ears normal, nares patent, oropharynx clear without exudates, moist mucous membranes. NECK: Trachea midline, full range of motion, supple. LUNGS: Diffuse rhonchi BL, w/ mild upper lobe congestion. Trace I/E wheezing. CT in place on L side, no erythema/bleeding at site, draining freely HEART: Irregular rate, S1, S2 without murmur, rub or gallop. ABDOMEN: Soft, nontender, nondistended, hypoactive bowel sounds, no guarding, no rebound, no hepatosplenomegaly, no masses. EXTREMITIES: 2+ pulses, warm, well-perfused, no edema. NEUROLOGICAL: Cranial nerves II through XII grossly intact. Normal speech, gait not observed. CBC, BMP 03/10/17 05:00 03/10/17 05:00 Active Medications Generic Name Dose Route Start Last Admin Trade Name Freq PRN Reason Stop Dose Admin Acetaminophen 650 mg 03/07/17 20:32 03/10/17 14:05 Tylenol - PO 650 mg Q4H PRN Administration FEVER OR PAIN Aclidinium [place] 1 puff 03/09/17 10:00 03/10/17 21:51 Tudorza - IH 1 puff BID ANNA Administration Benzocaine/Menthol 1 each 03/09/17 13:15 Cepacol Lozenge - MM PRN PRN SORE THROAT Diltiazem HCl 60 mg 03/09/17 12:00 03/11/17 06:13 Cardizem - PO 60 mg Q6HPO ANNA Administration Docusate Sodium 100 mg 03/10/17 14:00 03/10/17 21:46 Colace - PO 100 mg BID ANNA Administration Fentanyl 25 mcg 03/08/17 12:23 03/08/17 14:00 Sublimaze Injection - IVPUSH 03/11/17 12:24 25 mcg [id number] PRN Administration PAIN Heparin Sodium (Porcine) 5,000 unit 03/07/17 22:00 03/10/17 21:46 Heparin - SQ 5,000 unit BID [facility] Administration Ipratropium [place] 1 amp 03/08/17 12:00 03/11/17 05:35 Atrovent 0.02% Nebulizer - NEB 1 amp QIDR ANNA Administration Methylprednisolone Sodium Succinate 40 mg 03/10/17 12:00 03/10/17 13:00 Solu-Medrol - IVPB 40 mg DAILY ANNA Administration Oxycodone HCl 5 mg 03/10/17 13:30 03/10/17 18:31 Roxicodone - PO 5 mg Q3H PRN Administration MODERATE PAIN Oxycodone HCl 10 mg 03/10/17 13:30 03/11/17 04:17 Roxicodone - PO 10 mg Q3H PRN Administration SEVERE PAIN 03/09/17 15:30 Blood Culture - Preliminary Blood - Peripheral Venous NO GROWTH OBTAINED AFTER 24 HOURS, INCUBATION TO CONTINUE FOR 4 DAYS. 03/09/17 15:30 Blood Culture - Preliminary Blood - Peripheral Venous NO GROWTH OBTAINED AFTER 24 HOURS, INCUBATION TO CONTINUE FOR 4 DAYS. 03/07/17 21:45 Urine Culture - Final Urine - Urine Clean Catch NO GROWTH OBTAINED Recent Imaging: CXR (03/09) - No pneumo. Left basilar atelectasis. Left chest tube in place. Increased left lower lung markings. CXR (03/10) - CXR w/ no significant interval change. Chest tube in place. Significant LL lung opacity, atelectasis. No pneumo. ASSESSMENT/PLAN: 76 yo F smoker w/ pmhx of COPD, CKD, currently s/p L VATS/OSVALDO lobectomy and admitted to ICU for further post-op management. Pt stable, doing well on POD3, ambulating w/ assistance and PO meds for pain control. ID following regarding heterogenous mass on TR, unlikely to be IE. Transfer to telemetry today given continual clinical improvement. #Neuro - Oxycodone 5mg PO Q3h for pain control - Tylenol 650mg q4h PRN for pain control - Cepacol lozenges for throat pain post ENT-scope - D/c Fentanyl #Cardiac - Cadiology recs greatly appreciated. - Cardizem increased to 90mg q6h - Echo results from 02/25 significant for moderately-sized complex mass on tricuspid valve. Suspicion of IE. - Rate control for afib - Repeat ECHO to r/o IE #Pulm - O2 2L NC. Titrate to >94%. Pt complains that NC "dries her out". Noncompliant. Has been satting well (94%) on RA. - Medrol 40mg IV daily. Switch to 20mg PO prednisone tomorrow - Incentive spirometer - Atrovent, albuterol PRN - Inhaled bronchodilators - Pull chest tube tomorrow. Output ~ 200cc today #ID - Afebrile, no WBC normal. - f/u serial blood cx's for IE - ID following. Will defer for IE work-up if indicated. No abx at this time. #Renal - d/c fernández - Hold IVFs per CT surgery - Strict Is&Os - Monitor lytes. Trend BUN/Cr, K #Heme - Monitor H/H - Plan to restart AC (afib) one week from today, per CT surgery #GI - Senna, Colace for constipation - Cardiac diet #FEN -Fluids: PO fluids -Electrolytes: Daily BMPs, Trend BUN/Cr -Nutrition: Cardiac diet #PPX -SubQ Heparin, SCDs for DVT ppx -PPI for GI ppx #Dispo - Transfer to tele today Kasi Rojas, PGY1 Plan discussed with attending, Dr. Larry Visit type - Emergency Visit Emergency Visit: No - New Patient This patient is new to me today: No - Critical Care Critical Care patient: Yes Total Critical Care Time (in minutes): 25
[2017-03-11] MEDS ORDERED: ACETAMINOPHEN 325 MG TABLET (FP) PO PRN (08:16)
[2017-03-11] MEDS ORDERED: oxyCODONE HCL 5 MG TABLET PO PRN ×2 (08:16→19:56)
[2017-03-11] MEDS ORDERED: BENZOCAINE/MENTH/CETYLPYRD CL 1 EACH LOZENGE MM PRN ×2 (08:16→19:56)
[2017-03-11 08:26] LABS: MCH 29.7 pg (25.7-33.7); MCHC 33.2 g/dl (32.0-36.0); MEAN CELL VOLUME 89.5 fl (80-96); MEAN PLT VOLUME 8.1 fl (7.5-11.1); PLATELET COUNT 257 K/MM3 (134-434); WHITE BLOOD COUNT 13.6 K/mm3 (4.0-10.0)
[2017-03-11 08:53] LABS: ALBUMIN 2.8 g/dl (3.4-5.0); ALK PHOS 62 U/L (45-117); ANION GAP 12 (8-16); BILIRUBIN,TOTAL 0.3 mg/dL (0.2-1.0); CALCIUM 8.4 mg/dL (8.5-10.1); CO2 19 mmol/L (21-32); CREATININE 3.1 mg/dL (0.55-1.02); GLUCOSE,RANDOM 147 mg/dL (74-106); SGOT/AST 14 U/L (15-37); SGPT/ALT 10 U/L (12-78); TOT PROT 6.1 g/dl (6.4-8.2)
[2017-03-11] MEDS ORDERED: DOCUSATE SODIUM 100 MG CAPSULE (FP) PO SCH (10:00)
[2017-03-11] MEDS ORDERED: ACLIDINIUM BROMIDE 400 MCG/INH AERO.POWD IH SCH (10:00)
[2017-03-11] MEDS ORDERED: methylPREDNISolone NA SUCC 40 MG/1 ML VIAL IVPB SCH (10:00)
[2017-03-11] MEDS ORDERED: HEPARIN NA (PORCINE) 5,000 UNITS/ML 1ML VIAL SQ SCH (10:00)
[2017-03-11] MEDS ORDERED: IPRATROPIUM BR 0.02% 0.5 MG/2.5 ML VIAL.NEB. NEB ONE (10:33)
--- NOTE | 2017-03-11 11:02 | PN ---
Progress Note (short form) - Note Progress Note: Thoracic Surgery: POD#3. Doing well. Pain controlled on PO. AF CT drainage decreasing. CXR shows well-expnaded LLLobe and decreased sq emphysema. If drainage decreases, will dc chest tube tomorrow am. Cards: NO afib anticoagulation for 1 week from today. Renal: OK to dc IVF? Diuresing through chest tube. Appreciate care of PMD team.
--- NOTE | 2017-03-11 11:19 | PN ---
Progress Note, Physician Chief Complaint: AWAKE , FAMILY BEDSIDE FEELING BETTER - Current Medication List Current Medications: Active Medications Acetaminophen (Tylenol -) 650 mg PO Q4H PRN PRN Reason: FEVER OR PAIN Aclidinium [place] (Tudorza -) 1 puff IH BID [facility] Last Admin: 03/11/17 10:01 Dose: 1 puff Benzocaine/Menthol (Cepacol Lozenge -) 1 each MM PRN PRN PRN Reason: SORE THROAT Diltiazem HCl 60 mg/ Diltiazem (HCl 30 mg) 90 mg PO Q6HPO [facility] Docusate Sodium (Colace -) 100 mg PO BID [facility] Last Admin: 03/11/17 10:02 Dose: Not Given Fentanyl (Sublimaze Injection -) 25 mcg IVPUSH [id number] PRN PRN Reason: PAIN Stop: 03/11/17 12:24 Heparin Sodium (Porcine) (Heparin -) 5,000 unit SQ BID [facility] Last Admin: 03/11/17 09:59 Dose: 5,000 unit Ipratropium [place] (Atrovent 0.02% Nebulizer -) 1 amp NEB QIDR [facility] Methylprednisolone Sodium Succinate (Solu-Medrol -) 40 mg IVPB DAILY [facility] Last Admin: 03/11/17 09:59 Dose: 40 mg Oxycodone HCl (Roxicodone -) 5 mg PO Q3H PRN PRN Reason: MODERATE PAIN Last Admin: 03/11/17 10:00 Dose: 5 mg Oxycodone HCl (Roxicodone -) 10 mg PO Q3H PRN PRN Reason: SEVERE PAIN - Objective Vital Signs: Vital Signs Temperature 99 F 03/11/17 06:00 Pulse Rate 87 03/11/17 10:23 Respiratory Rate 16 03/11/17 10:00 Blood Pressure 130/83 03/11/17 10:00 O2 Sat by Pulse Oximetry (%) 95 03/11/17 10:23 Constitutional: Yes: Mild Distress Eyes: Yes: WNL HENT: Yes: WNL Neck: Yes: WNL Cardiovascular: Yes: Pulse Irregular Respiratory: Yes: Diminished, On Nasal O2 Gastrointestinal: Yes: WNL Genitourinary: Yes: Avery Present Musculoskeletal: Yes: Muscle Weakness Extremities: Yes: WNL Edema: No Peripheral Pulses WNL: Yes Integumentary: Yes: WNL Wound/Incision: Yes: Draining Neurological: Yes: WNL ...Motor Strength: WNL Psychiatric: Yes: WNL Labs: CBC, BMP 03/11/17 08:15 03/11/17 08:15 INR, PTT INR 0.93 (0.82-1.09) 03/07/17 21:40 Problem List - Problems (1) Abdominal aneurysm Code(s): I71.4 - ABDOMINAL AORTIC ANEURYSM, WITHOUT RUPTURE (2) COPD (chronic obstructive pulmonary disease) Code(s): J44.9 - CHRONIC OBSTRUCTIVE PULMONARY DISEASE, UNSPECIFIED (3) Chronic renal disease Code(s): N18.9 - CHRONIC KIDNEY DISEASE, UNSPECIFIED Qualifiers: (4) Hypertension Code(s): I10 - ESSENTIAL (PRIMARY) HYPERTENSION Qualifiers: (5) Lung malignancy Code(s): C34.90 - MALIGNANT NEOPLASM OF UNSP PART OF UNSP BRONCHUS OR LUNG Qualifiers: Laterality: left (6) Tobacco use Code(s): Z72.0 - TOBACCO USE Assessment/Plan CARDIAC RATE CONTROL WITH CARDIZEM MONITOR BP ANTICOAGULATE 7 DAYS POST OP POD #3 TODAY RECOVERY ON TARGET ENT F/U APPRECIATED R VOCAL CORD TRAUMA POST EXTUBATION LABS REVIEWED PT EVAL OOB TO CHAIR
[2017-03-11] MEDS ORDERED: ALBUTEROL SO4 0.083% IH SOL 2.5 MG/3 ML VIAL.NEB. NEB PRN (11:56)
[2017-03-11] MEDS ORDERED: dilTIAZem HCL 60 MG TABLET (FP) PO SCH ×3 (12:00)
--- NOTE | 2017-03-11 12:43 | PN ---
Teaching Attending Note Name of Resident: Kasi Rojas ATTENDING PHYSICIAN STATEMENT I saw and evaluated the patient. I reviewed the resident's note and discussed the case with the resident. I agree with the resident's findings and plan as documented. SUBJECTIVE: Pt seen and examined in the ICU. Breathing better today. Less cough and wheezing. Chest tube to water seal. OBJECTIVE: Last Vital Signs Temp Pulse Resp BP Pulse Ox 99 F 87 16 130/83 95 03/11/17 06:00 03/11/17 10:23 03/11/17 10:00 03/11/17 10:00 03/11/17 10:23 Intake & Output 03/08/17 03/09/17 03/10/17 03/11/17 23:59 23:59 23:59 23:59 Intake Total 2275 2510 1858 754 Output Total 950 2700 2900 450 Balance 1325 190 -1042 304 Weight 150 lb 9 oz 160 lb 3 oz 157 lb 7 oz 160 lb 14.4 oz Gen: NAD at rest Heart: RRR Lung: less rhonchi Abd: soft, nontender Ext: no edema Chest tube: +serosanguinous drainage, no leak CBC, BMP 03/11/17 08:15 03/11/17 08:15 Active Medications Acetaminophen (Tylenol -) 650 mg PO Q4H PRN PRN Reason: FEVER OR PAIN Albuterol Sulfate (Ventolin 0.083% Nebulizer Soln -) 1 amp NEB Q4H PRN PRN Reason: SHORT OF BREATH/WHEEZING Benzocaine/Menthol (Cepacol Lozenge -) 1 each MM PRN PRN PRN Reason: SORE THROAT Diltiazem HCl 60 mg/ Diltiazem (HCl 30 mg) 90 mg PO Q6HPO [facility] Docusate Sodium (Colace -) 100 mg PO BID [facility] Last Admin: 03/11/17 10:02 Dose: Not Given Heparin Sodium (Porcine) (Heparin -) 5,000 unit SQ BID [facility] Last Admin: 03/11/17 09:59 Dose: 5,000 unit Ipratropium [place] (Atrovent 0.02% Nebulizer -) 1 amp NEB QIDR [facility] Last Admin: 03/11/17 11:30 Dose: Not Given Oxycodone HCl (Roxicodone -) 5 mg PO Q3H PRN PRN Reason: MODERATE PAIN Last Admin: 03/11/17 10:00 Dose: 5 mg Oxycodone HCl (Roxicodone -) 10 mg PO Q3H PRN PRN Reason: SEVERE PAIN Prednisone (Deltasone -) 20 mg PO DAILY ANNA ASSESSMENT AND PLAN: NSCLC (Squamous Cell) s/p L VATS/OSVALDO lobectomy COPD Atrial fibrillation with RVR Mitral Regurgitation Smoker - pain control - incentive spirometry - inhaled bronchodilators - can change steroids to PO in AM - O2 to keep SpO2 >90% - rate control - start anticoagulation when ok with surgery - PO as tolerated - DVT prophylaxis - can monitor on telemetry
[2017-03-11] MEDS ORDERED: dilTIAZem HCL 30 MG TABLET (FP) ONE ×3 (13:12→23:54)
[2017-03-11] MEDS ORDERED: dilTIAZem HCL 60 MG TABLET (FP) ONE ×3 (13:12→23:54)
[2017-03-11] MEDS: DILTIAZEM 60 MG, DILTIAZEM 30 MG PO SCH ×2 (13:17→18:12)
--- NOTE | 2017-03-11 13:52 | PN ---
Progress Note, Physician Chief Complaint: Cardiology FU No dyspnea Telem Afib HR 80-100 History of Present Illness: 76 F with HTn, COPD, previous history of PAF, AAA, CKD 4, Diagnosed with squamous cell lung CA and is electively admitted for lung resection done . ECG showed Afib and she has developed post operative Afib with rapid response. She does not report pain, chest pain, or dyspnea. 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 There have been no fevers or chills. - Current Medication List Current Medications: Active Medications Acetaminophen (Tylenol -) 650 mg PO Q4H PRN PRN Reason: FEVER OR PAIN Albuterol Sulfate (Ventolin 0.083% Nebulizer Soln -) 1 amp NEB Q4H PRN PRN Reason: SHORT OF BREATH/WHEEZING Benzocaine/Menthol (Cepacol Lozenge -) 1 each MM PRN PRN PRN Reason: SORE THROAT Diltiazem HCl 60 mg/ Diltiazem (HCl 30 mg) 90 mg PO Q6HPO [facility] Last Admin: 03/11/17 13:17 Dose: 90 mg Docusate Sodium (Colace -) 100 mg PO BID [facility] Last Admin: 03/11/17 10:02 Dose: Not Given Heparin Sodium (Porcine) (Heparin -) 5,000 unit SQ BID [facility] Last Admin: 03/11/17 09:59 Dose: 5,000 unit Ipratropium [place] (Atrovent 0.02% Nebulizer -) 1 amp NEB QIDR [facility] Last Admin: 03/11/17 13:21 Dose: 1 amp Oxycodone HCl (Roxicodone -) 5 mg PO Q3H PRN PRN Reason: MODERATE PAIN Last Admin: 03/11/17 10:00 Dose: 5 mg Oxycodone HCl (Roxicodone -) 10 mg PO Q3H PRN PRN Reason: SEVERE PAIN Prednisone (Deltasone -) 20 mg PO DAILY [facility] - Objective Vital Signs: Vital Signs Temperature 98.6 F 03/11/17 10:00 Pulse Rate 97 H 03/11/17 12:00 Respiratory Rate 16 03/11/17 12:00 Blood Pressure 125/88 03/11/17 12:00 O2 Sat by Pulse Oximetry (%) 95 03/11/17 10:23 Constitutional: Yes: No Distress, Calm Eyes: Yes: Conjunctiva Clear, EOM Intact HENT: Yes: Atraumatic, Normocephalic Neck: Yes: Supple, Trachea Midline Cardiovascular: Yes: Pulse Irregular Respiratory: Yes: Regular, CTA Bilaterally Gastrointestinal: Yes: Normal Bowel Sounds Edema: No Labs: CBC, BMP 03/11/17 08:15 03/11/17 08:15 INR, PTT INR 0.93 (0.82-1.09) 03/07/17 21:40 Problem List - Problems (1) Atrial fibrillation Code(s): I48.91 - UNSPECIFIED ATRIAL FIBRILLATION (2) Cardiac mass Code(s): I51.89 - OTHER ILL-DEFINED HEART DISEASES Assessment/Plan 76 F COPD, AAA, PAF, HTN, lung CA sp resection POD #2 with: 1. postop rapid Afib. 2. 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 Moderate to severe MR/TR with preserved EF. Rec: Can switch to Cardizem CD 360mg QD. Follow up cultures. AC patient when surgically cleared. Will see as needed.
--- NOTE | 2017-03-11 16:34 | PN ---
Progress Note, Physician History of Present Illness: patient doing well no issues chest tube draining less - Current Medication List Current Medications: Active Medications Acetaminophen (Tylenol -) 650 mg PO Q4H PRN PRN Reason: FEVER OR PAIN Albuterol Sulfate (Ventolin 0.083% Nebulizer Soln -) 1 amp NEB Q4H PRN PRN Reason: SHORT OF BREATH/WHEEZING Benzocaine/Menthol (Cepacol Lozenge -) 1 each MM PRN PRN PRN Reason: SORE THROAT Diltiazem HCl 60 mg/ Diltiazem (HCl 30 mg) 90 mg PO Q6HPO [facility] Last Admin: 03/11/17 13:17 Dose: 90 mg Docusate Sodium (Colace -) 100 mg PO BID [facility] Last Admin: 03/11/17 10:02 Dose: Not Given Heparin Sodium (Porcine) (Heparin -) 5,000 unit SQ BID [facility] Last Admin: 03/11/17 09:59 Dose: 5,000 unit Ipratropium [place] (Atrovent 0.02% Nebulizer -) 1 amp NEB QIDR [facility] Last Admin: 03/11/17 13:21 Dose: 1 amp Oxycodone HCl (Roxicodone -) 5 mg PO Q3H PRN PRN Reason: MODERATE PAIN Last Admin: 03/11/17 16:25 Dose: 5 mg Oxycodone HCl (Roxicodone -) 10 mg PO Q3H PRN PRN Reason: SEVERE PAIN Prednisone (Deltasone -) 20 mg PO DAILY [facility] - Objective Vital Signs: Vital Signs Temperature 98.3 F 03/11/17 14:00 Pulse Rate 82 03/11/17 14:00 Respiratory Rate 16 03/11/17 14:00 Blood Pressure 130/97 03/11/17 14:00 O2 Sat by Pulse Oximetry (%) 95 03/11/17 10:23 Constitutional: Yes: No Distress, Calm Cardiovascular: Yes: Regular Rate and Rhythm Respiratory: Yes: Regular, Poor Air Entry, Other (chest tube in place) Gastrointestinal: Yes: Normal Bowel Sounds, Soft Musculoskeletal: Yes: WNL Extremities: Yes: WNL Neurological: Yes: Alert, Oriented Psychiatric: Yes: Alert, Oriented Labs: CBC, BMP 03/11/17 08:15 03/11/17 08:15 INR, PTT INR 0.93 (0.82-1.09) 03/07/17 21:40 - ....Imaging Chest X-ray: Report Reviewed, Image Reviewed Assessment/Plan Problem List - Problems (1) Abdominal aneurysm Code(s): I71.4 - ABDOMINAL AORTIC ANEURYSM, WITHOUT RUPTURE (2) COPD (chronic obstructive pulmonary disease) Code(s): J44.9 - CHRONIC OBSTRUCTIVE PULMONARY DISEASE, UNSPECIFIED (3) Chronic renal disease Code(s): N18.9 - CHRONIC KIDNEY DISEASE, UNSPECIFIED Qualifiers: (4) Hypertension Code(s): I10 - ESSENTIAL (PRIMARY) HYPERTENSION Qualifiers: (5) Lung malignancy Code(s): C34.90 - MALIGNANT NEOPLASM OF UNSP PART OF UNSP BRONCHUS OR LUNG Qualifiers: Laterality: left (6) Tobacco use Code(s): Z72.0 - TOBACCO USE after looking at the history and the thought process clinically patient is not showing any signs pertaining to endocarditis plan continue current mgmt will not start any abx repeat blood cx negative so far repeat an echo close watch for any fevers rest as per icu and primary cc time 40 min
--- NOTE | 2017-03-11 19:21 | PN ---
Progress Note, Physician History of Present Illness: Pt seen and examined at bedside. She is awake and alert. She feels better today. - Current Medication List Current Medications: Active Medications Acetaminophen (Tylenol -) 650 mg PO Q4H PRN PRN Reason: FEVER OR PAIN Albuterol Sulfate (Ventolin 0.083% Nebulizer Soln -) 1 amp NEB Q4H PRN PRN Reason: SHORT OF BREATH/WHEEZING Benzocaine/Menthol (Cepacol Lozenge -) 1 each MM PRN PRN PRN Reason: SORE THROAT Diltiazem HCl 60 mg/ Diltiazem (HCl 30 mg) 90 mg PO Q6HPO [facility] Last Admin: 03/11/17 18:12 Dose: 90 mg Docusate Sodium (Colace -) 100 mg PO BID [facility] Last Admin: 03/11/17 10:02 Dose: Not Given Heparin Sodium (Porcine) (Heparin -) 5,000 unit SQ BID [facility] Last Admin: 03/11/17 09:59 Dose: 5,000 unit Ipratropium [place] (Atrovent 0.02% Nebulizer -) 1 amp NEB QIDR [facility] Last Admin: 03/11/17 18:15 Dose: 1 amp Oxycodone HCl (Roxicodone -) 5 mg PO Q3H PRN PRN Reason: MODERATE PAIN Last Admin: 03/11/17 16:25 Dose: 5 mg Oxycodone HCl (Roxicodone -) 10 mg PO Q3H PRN PRN Reason: SEVERE PAIN Prednisone (Deltasone -) 20 mg PO DAILY [facility] - Objective Vital Signs: Vital Signs Temperature 98.3 F 03/11/17 14:00 Pulse Rate 105 H 03/11/17 18:00 Respiratory Rate 17 03/11/17 18:00 Blood Pressure 129/112 03/11/17 18:00 O2 Sat by Pulse Oximetry (%) 95 03/11/17 10:23 Constitutional: Yes: Calm Eyes: Yes: Conjunctiva Clear HENT: Yes: Atraumatic Cardiovascular: Yes: Pulse Irregular, S1, S2 Respiratory: Yes: Other (chest tube) Genitourinary: Yes: Bennie HELTON Present Musculoskeletal: Yes: WNL Edema: No Neurological: Yes: Oriented Psychiatric: Yes: Oriented Labs: CBC, BMP 03/11/17 08:15 03/11/17 08:15 INR, PTT INR 0.93 (0.82-1.09) 03/07/17 21:40 Problem List - Problems (1) Abdominal aneurysm Code(s): I71.4 - ABDOMINAL AORTIC ANEURYSM, WITHOUT RUPTURE (2) COPD (chronic obstructive pulmonary disease) Code(s): J44.9 - CHRONIC OBSTRUCTIVE PULMONARY DISEASE, UNSPECIFIED (3) Chronic renal disease Code(s): N18.9 - CHRONIC KIDNEY DISEASE, UNSPECIFIED Qualifiers: (4) Hypertension Code(s): I10 - ESSENTIAL (PRIMARY) HYPERTENSION Qualifiers: (5) Lung malignancy Code(s): C34.90 - MALIGNANT NEOPLASM OF UNSP PART OF UNSP BRONCHUS OR LUNG Qualifiers: Laterality: left (6) Tobacco use Code(s): Z72.0 - TOBACCO USE Assessment/Plan Current Medications Generic Name Dose Route Start Last Admin Trade Name Freq PRN Reason Stop Dose Admin Acetaminophen 650 mg 03/11/17 08:16 Tylenol - PO Q4H PRN FEVER OR PAIN Albuterol Sulfate 1 amp 03/11/17 11:56 Ventolin 0.083% Nebulizer Soln - NEB Q4H PRN SHORT OF BREATH/WHEEZING Benzocaine/Menthol 1 each 03/11/17 08:16 Cepacol Lozenge - MM PRN PRN SORE THROAT Diltiazem HCl 60 mg/ Diltiazem 90 mg 03/11/17 12:00 03/11/17 18:12 HCl 30 mg PO 90 mg Q6HPO ANNA Administration Docusate Sodium 100 mg 03/11/17 10:00 03/11/17 10:02 Colace - PO Not Given BID ANNA Heparin Sodium (Porcine) 5,000 unit 03/11/17 10:00 03/11/17 09:59 Heparin - SQ 5,000 unit BID ANNA Administration Ipratropium [place] 1 amp 03/11/17 12:00 03/11/17 18:15 Atrovent 0.02% Nebulizer - NEB 1 amp QIDR ANNA Administration Oxycodone HCl 5 mg 03/11/17 08:16 03/11/17 16:25 Roxicodone - PO 5 mg Q3H PRN Administration MODERATE PAIN Oxycodone HCl 10 mg 03/11/17 08:16 Roxicodone - PO Q3H PRN SEVERE PAIN Prednisone 20 mg 03/12/17 10:00 Deltasone - PO DAILY ANNA Impression 1. CKD 2. AAA 3. lung cancer 4. HTN 5. hyperkalemia Plan - repeat labs in am - can d/c fernández - chest tube care per cts - monitor in ICU - pulse ox stable - will follow Dr Shearer
[2017-03-11] MEDS ORDERED: MAG HYDROX/AL HYDROX/SIMETH 30 ML UNIT-DOSE CUP PO ONE (19:40)
[2017-03-11] MEDS: HEPARIN NA (PORCINE) 5,000 UNITS/ML 1ML VIAL SQ SCH (21:39)
[2017-03-11] MEDS: DOCUSATE SODIUM 100 MG CAPSULE (FP) PO SCH (21:39)
[2017-03-11] MEDS ORDERED: HEMOQUE TEST 1 EACH EACH ONE (21:44)
[2017-03-11] MEDS: ALBUTEROL SO4 0.083% IH SOL 2.5 MG/3 ML VIAL.NEB. NEB PRN (21:45)
[2017-03-12] MEDS: DILTIAZEM 60 MG, DILTIAZEM 30 MG PO SCH ×5 (00:05→23:07)
[2017-03-12] MEDS: ALBUTEROL SO4 0.083% IH SOL 2.5 MG/3 ML VIAL.NEB. NEB PRN (02:22)
[2017-03-12] MEDS ORDERED: dilTIAZem HCL 30 MG TABLET (FP) ONE ×4 (05:41→23:03)
[2017-03-12] MEDS ORDERED: dilTIAZem HCL 60 MG TABLET (FP) ONE ×4 (05:41→23:03)
[2017-03-12] MEDS: IPRATROPIUM BR 0.02% 0.5 MG/2.5 ML VIAL.NEB. NEB SCH ×4 (06:08→23:30)
[2017-03-12 06:43] LABS: BASOPHIL 0.4 % (0-2.0); EOSINOPHIL 0.4 % (0-4.5); MCH 30.8 pg (25.7-33.7); MCHC 34.8 g/dl (32.0-36.0); MEAN CELL VOLUME 88.4 fl (80-96); MEAN PLT VOLUME 8.6 fl (7.5-11.1); NEUTROPHILS 83.5 % (42.8-82.8); PLATELET COUNT 209 K/MM3 (134-434); RDW 14.7 % (11.6-15.6); WHITE BLOOD COUNT 10.7 K/mm3 (4.0-10.0)
[2017-03-12 07:01] LABS: ANION GAP 7 (8-16); CALCIUM 7.8 mg/dL (8.5-10.1); CO2 25 mmol/L (21-32); CREATININE 0.9 mg/dL (0.55-1.02); GLUCOSE,RANDOM 101 mg/dL (74-106)
[2017-03-12] MEDS: oxyCODONE HCL 5 MG TABLET PO PRN ×2 (08:54→23:07)
[2017-03-12] MEDS: DOCUSATE SODIUM 100 MG CAPSULE (FP) PO SCH ×2 (09:00→23:06)
[2017-03-12] MEDS: predniSONE 20 MG TABLET (UD) PO SCH (09:00)
[2017-03-12] MEDS: HEPARIN NA (PORCINE) 5,000 UNITS/ML 1ML VIAL SQ SCH ×2 (09:00→23:05)
[2017-03-12] MEDS ORDERED: predniSONE 20 MG TABLET (UD) PO SCH (10:00)
--- NOTE | 2017-03-12 12:00 | PN ---
Progress Note, Physician Chief Complaint: AWAKE ALERT FEELING BETTER + CONSTIPATION - Current Medication List Current Medications: Active Medications Acetaminophen (Tylenol -) 650 mg PO Q4H PRN PRN Reason: FEVER OR PAIN Albuterol Sulfate (Ventolin 0.083% Nebulizer Soln -) 1 amp NEB Q4H PRN PRN Reason: SHORT OF BREATH/WHEEZING Last Admin: 03/12/17 02:22 Dose: 1 amp Benzocaine/Menthol (Cepacol Lozenge -) 1 each MM PRN PRN PRN Reason: SORE THROAT Diltiazem HCl 60 mg/ Diltiazem (HCl 30 mg) 90 mg PO Q6HPO [facility] Last Admin: 03/12/17 05:48 Dose: 90 mg Docusate Sodium (Colace -) 100 mg PO BID [facility] Last Admin: 03/12/17 09:00 Dose: 100 mg Heparin Sodium (Porcine) (Heparin -) 5,000 unit SQ BID [facility] Last Admin: 03/12/17 09:00 Dose: 5,000 unit Ipratropium [place] (Atrovent 0.02% Nebulizer -) 1 amp NEB QIDR [facility] Last Admin: 03/12/17 11:00 Dose: 1 amp Oxycodone HCl (Roxicodone -) 5 mg PO Q3H PRN PRN Reason: MODERATE PAIN Last Admin: 03/12/17 08:54 Dose: 5 mg Oxycodone HCl (Roxicodone -) 10 mg PO Q3H PRN PRN Reason: SEVERE PAIN Prednisone (Deltasone -) 20 mg PO DAILY [facility] Last Admin: 03/12/17 09:00 Dose: 20 mg - Objective Vital Signs: Vital Signs Temperature 97.7 F 03/12/17 09:00 Pulse Rate 69 03/12/17 11:00 Respiratory Rate 18 03/12/17 09:00 Blood Pressure 132/70 03/12/17 09:00 O2 Sat by Pulse Oximetry (%) 97 03/12/17 11:00 Constitutional: Yes: Mild Distress Eyes: Yes: WNL HENT: Yes: WNL Neck: Yes: WNL Cardiovascular: Yes: Pulse Irregular Respiratory: Yes: On Nasal O2, Other (CHEST TUBE DRAIN) Gastrointestinal: Yes: WNL Genitourinary: Yes: WNL Musculoskeletal: Yes: Muscle Weakness Extremities: Yes: WNL Edema: No Peripheral Pulses WNL: Yes Integumentary: Yes: WNL Wound/Incision: Yes: Draining Neurological: Yes: WNL ...Motor Strength: LLE, RLE Psychiatric: Yes: WNL Labs: CBC, BMP 03/12/17 06:00 03/12/17 06:00 INR, PTT INR 0.93 (0.82-1.09) 03/07/17 21:40 Problem List - Problems (1) Abdominal aneurysm Code(s): I71.4 - ABDOMINAL AORTIC ANEURYSM, WITHOUT RUPTURE (2) COPD (chronic obstructive pulmonary disease) Code(s): J44.9 - CHRONIC OBSTRUCTIVE PULMONARY DISEASE, UNSPECIFIED (3) Chronic renal disease Code(s): N18.9 - CHRONIC KIDNEY DISEASE, UNSPECIFIED Qualifiers: (4) Hypertension Code(s): I10 - ESSENTIAL (PRIMARY) HYPERTENSION Qualifiers: (5) Lung malignancy Code(s): C34.90 - MALIGNANT NEOPLASM OF UNSP PART OF UNSP BRONCHUS OR LUNG Qualifiers: Laterality: left (6) Tobacco use Code(s): Z72.0 - TOBACCO USE Assessment/Plan CTS FOLLOW UP APPRECIATED WILL NEED DRAIN REMOVED FROM CHEST SURGICAL SITE ONCE CLEARED BY CTS NEBS 02 SUPPORT AFIB WILL START AC IN 4 DAYS (7 DAYS POST-OP) TRY TO CARDIOVERT IF CONTINUES RENAL FUNCTION HAS NOT CHANGED WITH CREATININE AROUND 3.0 PAIN CONTROL STOOL SOFTENERS
--- NOTE | 2017-03-12 13:31 | PN ---
Progress Note, Physician History of Present Illness: PULMONARY ALERT,C/O MILD SOB,WHEEZING - Current Medication List Current Medications: Active Medications Acetaminophen (Tylenol -) 650 mg PO Q4H PRN PRN Reason: FEVER OR PAIN Albuterol Sulfate (Ventolin 0.083% Nebulizer Soln -) 1 amp NEB Q4H PRN PRN Reason: SHORT OF BREATH/WHEEZING Last Admin: 03/12/17 02:22 Dose: 1 amp Benzocaine/Menthol (Cepacol Lozenge -) 1 each MM PRN PRN PRN Reason: SORE THROAT Diltiazem HCl 60 mg/ Diltiazem (HCl 30 mg) 90 mg PO Q6HPO [facility] Last Admin: 03/12/17 12:19 Dose: 90 mg Docusate Sodium (Colace -) 300 mg PO HS [facility] Heparin Sodium (Porcine) (Heparin -) 5,000 unit SQ BID [facility] Last Admin: 03/12/17 09:00 Dose: 5,000 unit Ipratropium [place] (Atrovent 0.02% Nebulizer -) 1 amp NEB QIDR [facility] Last Admin: 03/12/17 11:00 Dose: 1 amp Oxycodone HCl (Roxicodone -) 5 mg PO Q3H PRN PRN Reason: MODERATE PAIN Last Admin: 03/12/17 08:54 Dose: 5 mg Oxycodone HCl (Roxicodone -) 10 mg PO Q3H PRN PRN Reason: SEVERE PAIN Prednisone (Deltasone -) 20 mg PO DAILY [facility] Last Admin: 03/12/17 09:00 Dose: 20 mg - Objective Vital Signs: Vital Signs Temperature 97.7 F 03/12/17 09:00 Pulse Rate 69 03/12/17 11:00 Respiratory Rate 18 03/12/17 09:00 Blood Pressure 132/70 03/12/17 09:00 O2 Sat by Pulse Oximetry (%) 97 03/12/17 11:00 Constitutional: Yes: Calm, Thin Eyes: Yes: WNL HENT: Yes: WNL Neck: Yes: WNL Cardiovascular: Yes: Pulse Irregular, S1, S2 Respiratory: Yes: Wheezes (FEW SCATTERED WHEEZES) Gastrointestinal: Yes: Normal Bowel Sounds, Soft Extremities: Yes: WNL Edema: No Labs: CBC, BMP 03/12/17 06:00 03/12/17 06:00 INR, PTT INR 0.93 (0.82-1.09) 03/07/17 21:40 Problem List - Problems (1) Atrial fibrillation Code(s): I48.91 - UNSPECIFIED ATRIAL FIBRILLATION (2) Abdominal aneurysm Code(s): I71.4 - ABDOMINAL AORTIC ANEURYSM, WITHOUT RUPTURE (3) COPD (chronic obstructive pulmonary disease) Code(s): J44.9 - CHRONIC OBSTRUCTIVE PULMONARY DISEASE, UNSPECIFIED (4) Chronic renal disease Code(s): N18.9 - CHRONIC KIDNEY DISEASE, UNSPECIFIED Qualifiers: (5) Hypertension Code(s): I10 - ESSENTIAL (PRIMARY) HYPERTENSION Qualifiers: (6) Lung malignancy Code(s): C34.90 - MALIGNANT NEOPLASM OF UNSP PART OF UNSP BRONCHUS OR LUNG Qualifiers: Laterality: left (7) Tobacco use Code(s): Z72.0 - TOBACCO USE Assessment/Plan ASSESSMENT AND PLAN: NSCLC (Squamous Cell) s/p L VATS/OSVALDO lobectomy COPD Atrial fibrillation with RVR Mitral Regurgitation Smoker - pain control - incentive spirometry - inhaled bronchodilators - can change steroids to PO in AM - O2 to keep SpO2 >90% - rate control - start anticoagulation when ok with surgery - PO as tolerated - DVT prophylaxis DR CRUZ
--- NOTE | 2017-03-12 14:49 | PN ---
Progress Note, Physician History of Present Illness: Pt seen and examined at bedside. She feels her breathing is improved today. - Current Medication List Current Medications: Active Medications Acetaminophen (Tylenol -) 650 mg PO Q4H PRN PRN Reason: FEVER OR PAIN Albuterol Sulfate (Ventolin 0.083% Nebulizer Soln -) 1 amp NEB Q4H PRN PRN Reason: SHORT OF BREATH/WHEEZING Last Admin: 03/12/17 02:22 Dose: 1 amp Benzocaine/Menthol (Cepacol Lozenge -) 1 each MM PRN PRN PRN Reason: SORE THROAT Diltiazem HCl 60 mg/ Diltiazem (HCl 30 mg) 90 mg PO Q6HPO [facility] Last Admin: 03/12/17 12:19 Dose: 90 mg Docusate Sodium (Colace -) 300 mg PO HS [facility] Heparin Sodium (Porcine) (Heparin -) 5,000 unit SQ BID [facility] Last Admin: 03/12/17 09:00 Dose: 5,000 unit Ipratropium [place] (Atrovent 0.02% Nebulizer -) 1 amp NEB QIDR [facility] Last Admin: 03/12/17 11:00 Dose: 1 amp Oxycodone HCl (Roxicodone -) 5 mg PO Q3H PRN PRN Reason: MODERATE PAIN Last Admin: 03/12/17 08:54 Dose: 5 mg Oxycodone HCl (Roxicodone -) 10 mg PO Q3H PRN PRN Reason: SEVERE PAIN Prednisone (Deltasone -) 20 mg PO DAILY [facility] Last Admin: 03/12/17 09:00 Dose: 20 mg - Objective Vital Signs: Vital Signs Temperature 98.3 F 03/12/17 13:44 Pulse Rate 80 03/12/17 13:44 Respiratory Rate 18 03/12/17 13:44 Blood Pressure 154/69 03/12/17 13:44 O2 Sat by Pulse Oximetry (%) 97 03/12/17 11:00 Constitutional: Yes: Calm Eyes: Yes: Conjunctiva Clear HENT: Yes: Atraumatic Neck: Yes: Supple Cardiovascular: Yes: S1, S2 Respiratory: Yes: Other (chest tube) Musculoskeletal: Yes: WNL Edema: No Neurological: Yes: Oriented Psychiatric: Yes: Oriented Labs: CBC, BMP 03/12/17 06:00 03/12/17 06:00 INR, PTT INR 0.93 (0.82-1.09) 03/07/17 21:40 Problem List - Problems (1) Abdominal aneurysm Code(s): I71.4 - ABDOMINAL AORTIC ANEURYSM, WITHOUT RUPTURE (2) COPD (chronic obstructive pulmonary disease) Code(s): J44.9 - CHRONIC OBSTRUCTIVE PULMONARY DISEASE, UNSPECIFIED (3) Chronic renal disease Code(s): N18.9 - CHRONIC KIDNEY DISEASE, UNSPECIFIED Qualifiers: (4) Hypertension Code(s): I10 - ESSENTIAL (PRIMARY) HYPERTENSION Qualifiers: (5) Lung malignancy Code(s): C34.90 - MALIGNANT NEOPLASM OF UNSP PART OF UNSP BRONCHUS OR LUNG Qualifiers: Laterality: left (6) Tobacco use Code(s): Z72.0 - TOBACCO USE Assessment/Plan Current Medications Generic Name Dose Route Start Last Admin Trade Name Freq PRN Reason Stop Dose Admin Acetaminophen 650 mg 03/11/17 19:56 Tylenol - PO Q4H PRN FEVER OR PAIN Albuterol Sulfate 1 amp 03/11/17 19:56 03/12/17 02:22 Ventolin 0.083% Nebulizer Soln - NEB 1 amp Q4H PRN Administration SHORT OF BREATH/WHEEZING Benzocaine/Menthol 1 each 03/11/17 19:56 Cepacol Lozenge - MM PRN PRN SORE THROAT Diltiazem HCl 60 mg/ Diltiazem 90 mg 03/12/17 00:00 03/12/17 12:19 HCl 30 mg PO 90 mg Q6HPO ANNA Administration Docusate Sodium 300 mg 03/12/17 22:00 Colace - PO HS ANNA Heparin Sodium (Porcine) 5,000 unit 03/11/17 22:00 03/12/17 09:00 Heparin - SQ 5,000 unit BID ANNA Administration Ipratropium [place] 1 amp 03/12/17 00:00 03/12/17 11:00 Atrovent 0.02% Nebulizer - NEB 1 amp QIDR ANNA Administration Oxycodone HCl 5 mg 03/11/17 19:56 03/12/17 08:54 Roxicodone - PO 5 mg Q3H PRN Administration MODERATE PAIN Oxycodone HCl 10 mg 03/11/17 19:56 Roxicodone - PO Q3H PRN SEVERE PAIN Prednisone 20 mg 03/12/17 10:00 03/12/17 09:00 Deltasone - PO 20 mg DAILY ANNA Administration Impression 1. CKD 2. AAA 3. lung cancer 4. HTN 5. hyperkalemia Plan - suspect labs error - repeat labs in am - cont current meds - pt off of fluids - will follow Dr Shearer
--- NOTE | 2017-03-12 16:53 | PN ---
Progress Note, Physician History of Present Illness: patient doing well no issues chest tube draining less plan to remove the chest tube - Current Medication List Current Medications: Active Medications Acetaminophen (Tylenol -) 650 mg PO Q4H PRN PRN Reason: FEVER OR PAIN Albuterol Sulfate (Ventolin 0.083% Nebulizer Soln -) 1 amp NEB Q4H PRN PRN Reason: SHORT OF BREATH/WHEEZING Last Admin: 03/12/17 02:22 Dose: 1 amp Benzocaine/Menthol (Cepacol Lozenge -) 1 each MM PRN PRN PRN Reason: SORE THROAT Diltiazem HCl 60 mg/ Diltiazem (HCl 30 mg) 90 mg PO Q6HPO [facility] Last Admin: 03/12/17 12:19 Dose: 90 mg Docusate Sodium (Colace -) 300 mg PO HS [facility] Heparin Sodium (Porcine) (Heparin -) 5,000 unit SQ BID [facility] Last Admin: 03/12/17 09:00 Dose: 5,000 unit Ipratropium [place] (Atrovent 0.02% Nebulizer -) 1 amp NEB QIDR [facility] Last Admin: 03/12/17 11:00 Dose: 1 amp Oxycodone HCl (Roxicodone -) 5 mg PO Q3H PRN PRN Reason: MODERATE PAIN Last Admin: 03/12/17 08:54 Dose: 5 mg Oxycodone HCl (Roxicodone -) 10 mg PO Q3H PRN PRN Reason: SEVERE PAIN Prednisone (Deltasone -) 20 mg PO DAILY [facility] Last Admin: 03/12/17 09:00 Dose: 20 mg - Objective Vital Signs: Vital Signs Temperature 98.3 F 03/12/17 13:44 Pulse Rate 80 03/12/17 13:44 Respiratory Rate 18 03/12/17 13:44 Blood Pressure 154/69 03/12/17 13:44 O2 Sat by Pulse Oximetry (%) 97 03/12/17 11:00 Constitutional: Yes: No Distress, Calm Cardiovascular: Yes: Regular Rate and Rhythm Respiratory: Yes: Regular, Poor Air Entry, Other (chest tube in place) Gastrointestinal: Yes: Normal Bowel Sounds, Soft Musculoskeletal: Yes: WNL Extremities: Yes: WNL Neurological: Yes: Alert, Oriented Psychiatric: Yes: Alert, Oriented Labs: CBC, BMP 03/12/17 06:00 03/12/17 06:00 INR, PTT INR 0.93 (0.82-1.09) 03/07/17 21:40 Assessment/Plan Problem List - Problems (1) Abdominal aneurysm Code(s): I71.4 - ABDOMINAL AORTIC ANEURYSM, WITHOUT RUPTURE (2) COPD (chronic obstructive pulmonary disease) Code(s): J44.9 - CHRONIC OBSTRUCTIVE PULMONARY DISEASE, UNSPECIFIED (3) Chronic renal disease Code(s): N18.9 - CHRONIC KIDNEY DISEASE, UNSPECIFIED Qualifiers: (4) Hypertension Code(s): I10 - ESSENTIAL (PRIMARY) HYPERTENSION Qualifiers: (5) Lung malignancy Code(s): C34.90 - MALIGNANT NEOPLASM OF UNSP PART OF UNSP BRONCHUS OR LUNG Qualifiers: Laterality: left (6) Tobacco use Code(s): Z72.0 - TOBACCO USE after looking at the history and the thought process clinically patient is not showing any signs pertaining to endocarditis plan continue current mgmt still waiting for repeat echo plan to remove the chest tube rest as per primary team
--- NOTE | 2017-03-12 17:02 | PN ---
Progress Note (short form) - Note Progress Note: Thoracic Surgery: POD#4 s/p LULobectomy. Drainage ~200/day, serous. Will D/C tube. Check CXR. Will likely drain from wound for up to [address] Truong and team.
[2017-03-13] MEDS ORDERED: dilTIAZem HCL 30 MG TABLET (FP) ONE ×3 (05:57→17:18)
[2017-03-13] MEDS ORDERED: dilTIAZem HCL 60 MG TABLET (FP) ONE ×3 (05:57→17:18)
[2017-03-13] MEDS: DILTIAZEM 60 MG, DILTIAZEM 30 MG PO SCH ×3 (05:58→17:46)
[2017-03-13] MEDS: IPRATROPIUM BR 0.02% 0.5 MG/2.5 ML VIAL.NEB. NEB SCH ×3 (06:10→18:00)
[2017-03-13 07:23] LABS: ANION GAP 9 (8-16); CALCIUM 8.4 mg/dL (8.5-10.1); CO2 21 mmol/L (21-32); CREATININE 3.1 mg/dL (0.55-1.02); GLUCOSE,RANDOM 139 mg/dL (74-106)
[2017-03-13] MEDS ORDERED: PT OWN MED DRAWER 7, Y5N ONE (09:14)
[2017-03-13] MEDS: HEPARIN NA (PORCINE) 5,000 UNITS/ML 1ML VIAL SQ SCH ×2 (09:16→21:29)
[2017-03-13] MEDS: oxyCODONE HCL 5 MG TABLET PO PRN ×2 (09:16→17:47)
[2017-03-13] MEDS: predniSONE 20 MG TABLET (UD) PO SCH (09:17)
[2017-03-13] MEDS: RANITIDINE HCL 150 MG TABLET (FP) PO SCH ×2 (09:18→21:29)
--- NOTE | 2017-03-13 10:57 | PN ---
Progress Note, Physician Chief Complaint: AWAKE ALERT CHEST TUBE REMOVED DENIES CP +SOB - Current Medication List Current Medications: Active Medications Acetaminophen (Tylenol -) 650 mg PO Q4H PRN PRN Reason: FEVER OR PAIN Albuterol Sulfate (Ventolin 0.083% Nebulizer Soln -) 1 amp NEB Q4H PRN PRN Reason: SHORT OF BREATH/WHEEZING Last Admin: 03/12/17 02:22 Dose: 1 amp Benzocaine/Menthol (Cepacol Lozenge -) 1 each MM PRN PRN PRN Reason: SORE THROAT Diltiazem HCl 60 mg/ Diltiazem (HCl 30 mg) 90 mg PO Q6HPO [facility] Last Admin: 03/13/17 05:58 Dose: 90 mg Docusate Sodium (Colace -) 300 mg PO HS [facility] Last Admin: 03/12/17 23:06 Dose: 100 mg Heparin Sodium (Porcine) (Heparin -) 5,000 unit SQ BID [facility] Last Admin: 03/13/17 09:16 Dose: 5,000 unit Ipratropium [place] (Atrovent 0.02% Nebulizer -) 1 amp NEB QIDR [facility] Last Admin: 03/13/17 06:10 Dose: 1 amp Oxycodone HCl (Roxicodone -) 5 mg PO Q3H PRN PRN Reason: MODERATE PAIN Last Admin: 03/13/17 09:16 Dose: 5 mg Oxycodone HCl (Roxicodone -) 10 mg PO Q3H PRN PRN Reason: SEVERE PAIN Prednisone (Deltasone -) 20 mg PO DAILY [facility] Last Admin: 03/13/17 09:17 Dose: 20 mg Ranitidine HCl (Zantac -) 150 mg PO BID [facility] Last Admin: 03/13/17 09:18 Dose: 150 mg - Objective Vital Signs: Vital Signs Temperature 98.6 F 03/13/17 10:00 Pulse Rate 61 03/13/17 10:00 Respiratory Rate 19 03/13/17 10:00 Blood Pressure 120/61 03/13/17 10:00 O2 Sat by Pulse Oximetry (%) 95 03/12/17 21:00 Constitutional: Yes: Mild Distress Eyes: Yes: WNL HENT: Yes: WNL Neck: Yes: WNL Cardiovascular: Yes: Pulse Irregular Respiratory: Yes: Diminished Gastrointestinal: Yes: WNL Genitourinary: Yes: WNL Musculoskeletal: Yes: Back Pain Extremities: Yes: WNL Edema: No Peripheral Pulses WNL: Yes Integumentary: Yes: WNL Wound/Incision: Yes: Draining (LEFT CHEST ALL DRESSING DRAINING SANGUINOUS FLUID ) Neurological: Yes: WNL ...Motor Strength: WNL Psychiatric: Yes: Agitated Labs: CBC, BMP 03/12/17 06:00 03/13/17 06:25 INR, PTT INR 0.93 (0.82-1.09) 03/07/17 21:40 Problem List - Problems (1) Abdominal aneurysm Code(s): I71.4 - ABDOMINAL AORTIC ANEURYSM, WITHOUT RUPTURE (2) COPD (chronic obstructive pulmonary disease) Code(s): J44.9 - CHRONIC OBSTRUCTIVE PULMONARY DISEASE, UNSPECIFIED (3) Chronic renal disease Code(s): N18.9 - CHRONIC KIDNEY DISEASE, UNSPECIFIED Qualifiers: (4) Hypertension Code(s): I10 - ESSENTIAL (PRIMARY) HYPERTENSION Qualifiers: (5) Lung malignancy Code(s): C34.90 - MALIGNANT NEOPLASM OF UNSP PART OF UNSP BRONCHUS OR LUNG Qualifiers: Laterality: left (6) Tobacco use Code(s): Z72.0 - TOBACCO USE Assessment/Plan RATE CONTROL FOR AFIB WILL START ELIQUIS OUT PATIENT RENAL DOSE OOB TO CHAIR WOUND LONG TERM NURSING SERVICE UPON DISCHARGE
--- NOTE | 2017-03-13 12:26 | PN ---
Progress Note (short form) - Note Progress Note: OOB to chair. Some pain/discomfort at the surgical site. Mild MERCHANT. No acute events overnight. Intake & Output 03/10/17 03/11/17 03/12/17 03/13/17 23:59 23:59 23:59 23:59 Intake Total 1858 1154 400 Output Total 2900 450 1570 Balance -1042 704 -1170 Weight 157 lb 7 oz 160 lb 14.4 oz Last Vital Signs Temp Pulse Resp BP Pulse Ox 98.6 F 61 19 120/61 95 03/13/17 10:00 03/13/17 10:00 03/13/17 10:00 03/13/17 10:00 03/12/17 21:00 Active Medications Acetaminophen (Tylenol -) 650 mg PO Q4H PRN PRN Reason: FEVER OR PAIN Albuterol Sulfate (Ventolin 0.083% Nebulizer Soln -) 1 amp NEB Q4H PRN PRN Reason: SHORT OF BREATH/WHEEZING Last Admin: 03/12/17 02:22 Dose: 1 amp Benzocaine/Menthol (Cepacol Lozenge -) 1 each MM PRN PRN PRN Reason: SORE THROAT Diltiazem HCl 60 mg/ Diltiazem (HCl 30 mg) 90 mg PO Q6HPO [facility] Last Admin: 03/13/17 05:58 Dose: 90 mg Docusate Sodium (Colace -) 300 mg PO HS [facility] Last Admin: 03/12/17 23:06 Dose: 100 mg Heparin Sodium (Porcine) (Heparin -) 5,000 unit SQ BID [facility] Last Admin: 03/13/17 09:16 Dose: 5,000 unit Ipratropium [place] (Atrovent 0.02% Nebulizer -) 1 amp NEB QIDR [facility] Last Admin: 03/13/17 11:45 Dose: 1 amp Oxycodone HCl (Roxicodone -) 5 mg PO Q3H PRN PRN Reason: MODERATE PAIN Last Admin: 03/13/17 09:16 Dose: 5 mg Oxycodone HCl (Roxicodone -) 10 mg PO Q3H PRN PRN Reason: SEVERE PAIN Prednisone (Deltasone -) 20 mg PO DAILY [facility] Last Admin: 03/13/17 09:17 Dose: 20 mg Ranitidine HCl (Zantac -) 150 mg PO BID [facility] Last Admin: 03/13/17 09:18 Dose: 150 mg Constitutional: Yes: Awake and alert Eyes: Yes: WNL HENT: Yes: WNL Neck: Yes: WNL Cardiovascular: Yes: Pulse Irregular, S1, S2 Respiratory: Yes: No Wheeze, scattered rhonchi Gastrointestinal: Yes: Normal Bowel Sounds, Soft Extremities: Yes: WNL Edema: No Labs: Laboratory Results - last 24 hr 03/13/17 03/13/17 06:03 06:25 Sodium 136 Potassium 4.0 Chloride 106 Carbon Dioxide 21 Anion Gap 9 BUN 85 H D Creatinine 3.1 H D POC Glucometer 149 Random Glucose 139 H D Calcium 8.4 L Problem List - Problems (1) Atrial fibrillation Code(s): I48.91 - UNSPECIFIED ATRIAL FIBRILLATION (2) Abdominal aneurysm Code(s): I71.4 - ABDOMINAL AORTIC ANEURYSM, WITHOUT RUPTURE (3) COPD (chronic obstructive pulmonary disease) Code(s): J44.9 - CHRONIC OBSTRUCTIVE PULMONARY DISEASE, UNSPECIFIED (4) Chronic renal disease Code(s): N18.9 - CHRONIC KIDNEY DISEASE, UNSPECIFIED Qualifiers: (5) Hypertension Code(s): I10 - ESSENTIAL (PRIMARY) HYPERTENSION Qualifiers: (6) Lung malignancy Code(s): C34.90 - MALIGNANT NEOPLASM OF UNSP PART OF UNSP BRONCHUS OR LUNG Qualifiers: Laterality: left (7) Tobacco use Code(s): Z72.0 - TOBACCO USE Assessment/Plan NSCLC (Squamous Cell) S/P LEFT VATS/OSVALDO lobectomy COPD Atrial fibrillation with RVR Mitral Regurgitation Smoker - pain control - incentive spirometry / ambulate - inhaled bronchodilators - Steroid taper - O2 to keep SpO2 >90% - rate control - PO as tolerated Dr Bacon
--- NOTE | 2017-03-13 12:56 | CONSULT ---
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 Patient had the proedure performed on 03/08 and it showed the presence of a 3.1 cms mass of squamous cell cancer , 6 cms from the bronchial margin. Today on speaking her, she does not have any complaints. Her drains were removed yesterday and she is planned for discharge for Wednesday next week. Her granddaughter at bedside says feels tired post surgery and does not have a good apatite. - History Source History Provided By: Patient Limitations to Obtaining History: No Limitations - Past Medical History Cardio/Vascular: Yes: AFIB, Aneurysm, HTN Pulmonary: Yes: COPD, Other (LUNG MASS) Gastrointestinal: Yes: GERD Renal/: Yes: Renal Failure Rheumatology: Yes: Other Endocrine: Yes: Hyperparathyroidism (Hearing loss) - Past Surgical History Past Surgical History: Yes: Thoracotomy - Alcohol/Substance Use Hx Alcohol Use: Yes (SOCIAL) - Smoking History Smoking history: Current every day smoker Have you smoked in the past 12 months: Yes Aproximately how many cigarettes per day: 20 If you are a former smoker, when did you quit?: 1 week ago Home Medications - Allergies Allergies/Adverse Reactions: Allergies Allergy/AdvReac Type Severity Reaction Status Date / Time hydromorphone HCl AdvReac Vomiting Verified 03/07/17 13:54 [From Dilaudid] - Home Medications Home Medications: Ambulatory Orders Amlodipine Besylate 10 mg PO HS 02/08/17 Lorazepam [Ativan] 0.5 mg PO HS 03/07/17 Review of Systems - Review of Systems Constitutional: reports: Weakness Physical Exam Vital Signs: Vital Signs Temperature 98.6 F 03/13/17 10:00 Pulse Rate 61 03/13/17 10:00 Respiratory Rate 19 03/13/17 10:00 Blood Pressure 120/61 03/13/17 10:00 O2 Sat by Pulse Oximetry (%) 95 03/12/17 21:00 Constitutional: Yes: No Distress Eyes: Yes: WNL, Conjunctiva Clear, EOM Intact HENT: Yes: WNL, Atraumatic, Normocephalic Neck: Yes: WNL, Supple, Trachea Midline Cardiovascular: Yes: WNL, Pulse Irregular Respiratory: Yes: CTA Bilaterally (Has decreased breath sounds in left lower and left middle lobe) Gastrointestinal: Yes: WNL Breast(s): Yes: WNL Musculoskeletal: Yes: WNL Extremities: Yes: WNL Wound/Incision: Yes: Other (large bandage covering sites of drains over left posterior chest) Labs: CBC, BMP 03/12/17 06:00 03/13/17 06:25 Assessment/Plan 76 y/o female with CPOD, extensive smoking Hx and new diagnosis of stage 1 squamous cell ca s/p VATS and OSVALDO lobectomy -agree with plan for discharge when stable -please have her make a follow-up appointment with Medical Oncology or within 2 weeks of discharge to follow-up on final path + IHC and assess need for adjuvant chemotherapy -this plan was communicated to the patient and her granddaughter and they are in agreement with the same
--- NOTE | 2017-03-13 14:36 | PN ---
Progress Note, Physician History of Present Illness: Chest tube removed Pt without acute distress, using incentive spirometer Remains afebrile - Current Medication List Current Medications: Active Medications Acetaminophen (Tylenol -) 650 mg PO Q4H PRN PRN Reason: FEVER OR PAIN Albuterol Sulfate (Ventolin 0.083% Nebulizer Soln -) 1 amp NEB Q4H PRN PRN Reason: SHORT OF BREATH/WHEEZING Last Admin: 03/12/17 02:22 Dose: 1 amp Benzocaine/Menthol (Cepacol Lozenge -) 1 each MM PRN PRN PRN Reason: SORE THROAT Diltiazem HCl 60 mg/ Diltiazem (HCl 30 mg) 90 mg PO Q6HPO [facility] Last Admin: 03/13/17 12:17 Dose: 90 mg Docusate Sodium (Colace -) 300 mg PO HS [facility] Last Admin: 03/12/17 23:06 Dose: 100 mg Heparin Sodium (Porcine) (Heparin -) 5,000 unit SQ BID [facility] Last Admin: 03/13/17 09:16 Dose: 5,000 unit Ipratropium [place] (Atrovent 0.02% Nebulizer -) 1 amp NEB QIDR [facility] Last Admin: 03/13/17 11:45 Dose: 1 amp Oxycodone HCl (Roxicodone -) 5 mg PO Q3H PRN PRN Reason: MODERATE PAIN Last Admin: 03/13/17 09:16 Dose: 5 mg Oxycodone HCl (Roxicodone -) 10 mg PO Q3H PRN PRN Reason: SEVERE PAIN Prednisone (Deltasone -) 20 mg PO DAILY [facility] Last Admin: 03/13/17 09:17 Dose: 20 mg Ranitidine HCl (Zantac -) 150 mg PO BID [facility] Last Admin: 03/13/17 09:18 Dose: 150 mg - Objective Vital Signs: Vital Signs Temperature 98.6 F 03/13/17 10:00 Pulse Rate 61 03/13/17 10:00 Respiratory Rate 19 03/13/17 10:00 Blood Pressure 120/61 03/13/17 10:00 O2 Sat by Pulse Oximetry (%) 95 03/12/17 21:00 Constitutional: Yes: No Distress HENT: Yes: WNL Cardiovascular: Yes: Pulse Irregular (slightly diminished breath sounds) Gastrointestinal: Yes: Normal Bowel Sounds, Soft Genitourinary: Yes: WNL Extremities: Yes: WNL Labs: CBC, BMP 03/12/17 06:00 03/13/17 06:25 INR, PTT INR 0.93 (0.82-1.09) 03/07/17 21:40 Problem List - Problems (1) Atrial fibrillation Code(s): I48.91 - UNSPECIFIED ATRIAL FIBRILLATION (2) COPD (chronic obstructive pulmonary disease) Code(s): J44.9 - CHRONIC OBSTRUCTIVE PULMONARY DISEASE, UNSPECIFIED (3) Lung malignancy Code(s): C34.90 - MALIGNANT NEOPLASM OF UNSP PART OF UNSP BRONCHUS OR LUNG Qualifiers: Laterality: left Assessment/Plan NSCLC s/p VATS, OSVALDO lobectomy Chest tube removed monitor off antibiotics for now, appears relatively stable, afebrile possible repeat echo
--- NOTE | 2017-03-13 19:23 | OP ---
DATE OF OPERATION: 03/08/2017 PREOPERATIVE DIAGNOSIS: Lung cancer. POSTOPERATIVE DIAGNOSIS: Lung cancer. PROCEDURE: Bronchoscopy, left video-assisted thoracoscopic surgery, left upper lobe lobectomy, and mediastinal lymph node dissection. INDICATION: Lung cancer. SURGEON: Miki Wilde MD CO-SURGEON: Baudilio Wheat MD ANESTHESIA: General endotracheal. FINDINGS: Tumor in upper lobe, frozen section at level V. Lymph node was negative. SPECIMENS SENT: Left upper lobe and level V lymph nodes. COMPLICATIONS: None. DRAINS/TUBES/CATHETER: One 28-Kazakh chest tube. HARDWARE/IMPLANTS: Not applicable. BLOOD/FLUID LOSS: 150 mL POSTOPERATIVE CONDITION: Hemodynamically stable, transferred to PACU. INDICATION: This is a 76-year-old female with mitral valve regurgitation, with kidney failure, multiple morbidities, found to have left upper lobe lung cancer. Patient was consented by Dr. Wheat. Risks, benefits, and alternative options were presented to the patient, and patient consented for surgery. PROCEDURE IN DETAIL: The patient was taken into the operating room, placed in a supine position. Intra-arterial/intravenous access was done by anesthesiologist. Sequential compression devices were placed. Intravenous sedation was given, and patient was intubated with a single-lumen tube. Bronchoscopy was performed. No endobronchial lesions. Hereafter, bronchoscope was retracted. Single lumen was changed into a double lumen. Left-sided tube position was confirmed using small bronchoscope. Patient was placed in the right lateral decubitus flexed position, left side up; prepped and draped in a sterile fashion. Four incisions were made, one anterior axillary line IC-7, one mid-axillary line IC-8, posterior axillary line IC-7, and anterior access incision at IC-4. Good lung isolation was obtained. Dissection at the upper pulmonary vein was performed. Prior to that, inferior pulmonary vein was identified. Pulmonary vein was dissected and transected using a stapler device. Some retrograde bleeding which was stopped with compression. Hereafter, the anterior trunk from pulmonary artery was isolated and transected using a stapler device. Other branches from pulmonary artery were also transected using endostapler. Bronchus to the left upper lobe was identified, dissected, and transected using stapler after making sure that the left lower lobe was ventilating. Hereafter, the fissure was taken using endostapler device. The left upper lobe was removed in an Endobag. Level V lymph node was also taken out, sent for frozen section. Result was negative for malignancy. Hemostasis was secured. A 28-Kazakh chest tube was placed. Prior to inflation of the left lower lobe, inferior pulmonary ligament was transected and taken. Hereafter, the lung was ventilated. No air leak was observed under sterile water. Irrigation was performed, and ventilation was continued on both sides. Incisions were closed using 0 Vicryl at the level of the fascia, 2-0 Vicryl at the level of the subcutaneous tissue, and 3-0 Monocryl at the level of skin. Chest tube was affixed to skin using No. 1 Prolene and connected to Pleurovac. I performed the procedure as dictated above, was in the OR during the whole procedure, remained available thereafter. MIKI WILDE M.D. [id number]
[2017-03-13] MEDS: DOCUSATE SODIUM 100 MG CAPSULE (FP) PO SCH (21:29)
--- NOTE | 2017-03-13 22:10 | PN ---
Progress Note (short form) - Note Progress Note: 1. CKD 2. AAA 3. lung cancer 4. HTN 5. hyperkalemia Current Medications Acetaminophen (Tylenol -) 650 mg PO Q4H PRN PRN Reason: FEVER OR PAIN Albuterol Sulfate (Ventolin 0.083% Nebulizer Soln -) 1 amp NEB Q4H PRN PRN Reason: SHORT OF BREATH/WHEEZING Last Admin: 03/12/17 02:22 Dose: 1 amp Benzocaine/Menthol (Cepacol Lozenge -) 1 each MM PRN PRN PRN Reason: SORE THROAT Diltiazem HCl 60 mg/ Diltiazem (HCl 30 mg) 90 mg PO Q6HPO [facility] Last Admin: 03/13/17 17:46 Dose: 90 mg Docusate Sodium (Colace -) 300 mg PO HS [facility] Last Admin: 03/13/17 21:29 Dose: 300 mg Heparin Sodium (Porcine) (Heparin -) 5,000 unit SQ BID [facility] Last Admin: 03/13/17 21:29 Dose: 5,000 unit Ipratropium [place] (Atrovent 0.02% Nebulizer -) 1 amp NEB QIDR [facility] Last Admin: 03/13/17 11:45 Dose: 1 amp Oxycodone HCl (Roxicodone -) 5 mg PO Q3H PRN PRN Reason: MODERATE PAIN Last Admin: 03/13/17 17:47 Dose: 5 mg Oxycodone HCl (Roxicodone -) 10 mg PO Q3H PRN PRN Reason: SEVERE PAIN Prednisone (Deltasone -) 20 mg PO DAILY [facility] Last Admin: 03/13/17 09:17 Dose: 20 mg Ranitidine HCl (Zantac -) 150 mg PO BID [facility] Last Admin: 03/13/17 21:29 Dose: 150 mg Last Vital Signs Temp Pulse Resp BP Pulse Ox 99.1 F 76 20 139/70 95 03/13/17 18:12 03/13/17 18:12 03/13/17 18:12 03/13/17 18:12 03/12/17 21:00 CBC, BMP 03/12/17 06:00 03/13/17 06:25 IMP- ckd baseline s creat 1.8 Plan- follow bmp
[2017-03-14] MEDS ORDERED: dilTIAZem HCL 30 MG TABLET (FP) ONE ×3 (00:15→20:37)
[2017-03-14] MEDS ORDERED: dilTIAZem HCL 60 MG TABLET (FP) ONE ×3 (00:15→20:37)
[2017-03-14] MEDS: DILTIAZEM 60 MG, DILTIAZEM 30 MG PO SCH ×4 (00:18→20:45)
[2017-03-14] MEDS: IPRATROPIUM BR 0.02% 0.5 MG/2.5 ML VIAL.NEB. NEB SCH ×3 (00:30→11:35)
[2017-03-14] MEDS: oxyCODONE HCL 5 MG TABLET PO PRN ×2 (03:04→11:53)
[2017-03-14] MEDS: ALBUTEROL SO4 0.083% IH SOL 2.5 MG/3 ML VIAL.NEB. NEB PRN ×2 (03:04→19:24)
[2017-03-14 06:40] LABS: MCHC 33.2 g/dl (32.0-36.0); MEAN CELL VOLUME 90.4 fl (80-96); MEAN PLT VOLUME 7.9 fl (7.5-11.1); PLATELET COUNT 253 K/MM3 (134-434); WHITE BLOOD COUNT 14.5 K/mm3 (4.0-10.0)
[2017-03-14 07:09] LABS: ANION GAP 10 (8-16); CALCIUM 8.5 mg/dL (8.5-10.1); CO2 21 mmol/L (21-32); CREATININE 2.8 mg/dL (0.55-1.02); GLUCOSE,RANDOM 122 mg/dL (74-106)
[2017-03-14] MEDS: HEPARIN NA (PORCINE) 5,000 UNITS/ML 1ML VIAL SQ SCH ×2 (09:12→21:00)
[2017-03-14] MEDS: RANITIDINE HCL 150 MG TABLET (FP) PO SCH ×2 (09:13→21:00)
[2017-03-14] MEDS: predniSONE 20 MG TABLET (UD) PO SCH ×2 (09:13→13:40)
--- NOTE | 2017-03-14 12:32 | PN ---
Progress Note (short form) - Note Progress Note: Reported difficulty in breathing last night that required acute intervention. She reports hearing herself "wheezing" and the sensation of having thick secretions in her throat. Still with mild MERCHANT. CXR : overexposed / some mild increase in left base atelectasis likely to splinting / right appears clear Intake & Output 03/11/17 03/12/17 03/13/17 03/14/17 23:59 23:59 23:59 23:59 Intake Total 1154 400 650 Output Total 450 1570 Balance 704 -1170 650 Weight 160 lb 14.4 oz Last Vital Signs Temp Pulse Resp BP Pulse Ox 98.2 F 78 20 131/68 96 03/14/17 10:00 03/14/17 10:00 03/14/17 10:00 03/14/17 10:00 03/14/17 10:00 Active Medications Acetaminophen (Tylenol -) 650 mg PO Q4H PRN PRN Reason: FEVER OR PAIN Albuterol Sulfate (Ventolin 0.083% Nebulizer Soln -) 1 amp NEB Q4H PRN PRN Reason: SHORT OF BREATH/WHEEZING Last Admin: 03/14/17 03:04 Dose: 1 amp Benzocaine/Menthol (Cepacol Lozenge -) 1 each MM PRN PRN PRN Reason: SORE THROAT Diltiazem HCl 60 mg/ Diltiazem (HCl 30 mg) 90 mg PO Q6HPO [facility] Last Admin: 03/14/17 00:18 Dose: 90 mg Docusate Sodium (Colace -) 300 mg PO HS [facility] Last Admin: 03/13/17 21:29 Dose: 300 mg Heparin Sodium (Porcine) (Heparin -) 5,000 unit SQ BID [facility] Last Admin: 03/14/17 09:12 Dose: 5,000 unit Ipratropium [place] (Atrovent 0.02% Nebulizer -) 1 amp NEB QIDR [facility] Last Admin: 03/14/17 06:25 Dose: 1 amp Oxycodone HCl (Roxicodone -) 5 mg PO Q3H PRN PRN Reason: MODERATE PAIN Last Admin: 03/14/17 11:53 Dose: 5 mg Oxycodone HCl (Roxicodone -) 10 mg PO Q3H PRN PRN Reason: SEVERE PAIN Prednisone (Deltasone -) 20 mg PO DAILY [facility] Last Admin: 03/14/17 09:13 Dose: 20 mg Ranitidine HCl (Zantac -) 150 mg PO BID [facility] Last Admin: 03/14/17 09:13 Dose: 150 mg Constitutional: Yes: Awake and alert Eyes: Yes: WNL HENT: Yes: WNL Neck: Yes: WNL Cardiovascular: Yes: Pulse Irregular, S1, S2 Respiratory: Yes: No Wheeze, scattered rhonchi Gastrointestinal: Yes: Normal Bowel Sounds, Soft Extremities: Yes: WNL Edema: No Labs: Laboratory Results - last 24 hr 03/13/17 03/13/17 06:03 06:25 Sodium 136 Potassium 4.0 Chloride 106 Carbon Dioxide 21 Anion Gap 9 BUN 85 H D Creatinine 3.1 H D POC Glucometer 149 Random Glucose 139 H D Calcium 8.4 L Problem List - Problems (1) Atrial fibrillation Code(s): I48.91 - UNSPECIFIED ATRIAL FIBRILLATION (2) Abdominal aneurysm Code(s): I71.4 - ABDOMINAL AORTIC ANEURYSM, WITHOUT RUPTURE (3) COPD (chronic obstructive pulmonary disease) Code(s): J44.9 - CHRONIC OBSTRUCTIVE PULMONARY DISEASE, UNSPECIFIED (4) Chronic renal disease Code(s): N18.9 - CHRONIC KIDNEY DISEASE, UNSPECIFIED Qualifiers: (5) Hypertension Code(s): I10 - ESSENTIAL (PRIMARY) HYPERTENSION Qualifiers: (6) Lung malignancy Code(s): C34.90 - MALIGNANT NEOPLASM OF UNSP PART OF UNSP BRONCHUS OR LUNG Qualifiers: Laterality: left (7) Tobacco use Code(s): Z72.0 - TOBACCO USE Assessment/Plan (?) Acute bronchospasm overnight NSCLC (Squamous Cell) S/P LEFT VATS/OSVALDO lobectomy COPD Atrial fibrillation with RVR Mitral Regurgitation Smoker - Increase Prednisone - pain control - incentive spirometry / ambulate - inhaled bronchodilators - Add Symbicort and Spiriva : D/C MELISSA - Albuterol PRN - O2 to keep SpO2 >90% - rate control - PO as tolerated Dr Bacon
[2017-03-14] MEDS ORDERED: predniSONE 20 MG TABLET (UD) PO SCH (12:33)
[2017-03-14] MEDS ORDERED: TIOTROPIUM BROMIDE 18 MCG/INH (DEVICE W/ 5 CAPSULES) IH SCH (12:45)
[2017-03-14] MEDS: BUDESONIDE/FORMETEROL FUMARATE 160/4.5 mcg INHALER IH SCH ×2 (13:42→20:59)
--- NOTE | 2017-03-14 13:56 | PN ---
Progress Note, Physician Chief Complaint: AWAKE ALERT FEELING BETTER - Current Medication List Current Medications: Active Medications Acetaminophen (Tylenol -) 650 mg PO Q4H PRN PRN Reason: FEVER OR PAIN Albuterol Sulfate (Ventolin 0.083% Nebulizer Soln -) 1 amp NEB Q4H PRN PRN Reason: SHORT OF BREATH/WHEEZING Last Admin: 03/14/17 03:04 Dose: 1 amp Benzocaine/Menthol (Cepacol Lozenge -) 1 each MM PRN PRN PRN Reason: SORE THROAT Budesonide/Formoterol Fumarate (Symbicort 160/4.5mcg -) 2 puff IH BID [facility] Last Admin: 03/14/17 13:42 Dose: 2 puff Diltiazem HCl 60 mg/ Diltiazem (HCl 30 mg) 90 mg PO Q6HPO [facility] Last Admin: 03/14/17 13:42 Dose: 90 mg Docusate Sodium (Colace -) 300 mg PO HS [facility] Last Admin: 03/13/17 21:29 Dose: 300 mg Heparin Sodium (Porcine) (Heparin -) 5,000 unit SQ BID [facility] Last Admin: 03/14/17 09:12 Dose: 5,000 unit Oxycodone HCl (Roxicodone -) 5 mg PO Q3H PRN PRN Reason: MODERATE PAIN Last Admin: 03/14/17 11:53 Dose: 5 mg Oxycodone HCl (Roxicodone -) 10 mg PO Q3H PRN PRN Reason: SEVERE PAIN Prednisone (Deltasone -) 40 mg PO DAILY [facility] Last Admin: 03/14/17 13:40 Dose: 40 mg Ranitidine HCl (Zantac -) 150 mg PO BID [facility] Last Admin: 03/14/17 09:13 Dose: 150 mg Tiotropium [place] (Spiriva -) 1 puff IH DAILY [facility] Last Admin: 03/14/17 13:42 Dose: 1 puff - Objective Vital Signs: Vital Signs Temperature 98.3 F 03/14/17 13:33 Pulse Rate 75 03/14/17 13:33 Respiratory Rate 20 03/14/17 13:33 Blood Pressure 148/67 03/14/17 13:33 O2 Sat by Pulse Oximetry (%) 96 03/14/17 10:00 Constitutional: Yes: Mild Distress Eyes: Yes: WNL HENT: Yes: WNL Neck: Yes: WNL Cardiovascular: Yes: Pulse Irregular Respiratory: Yes: WNL Gastrointestinal: Yes: WNL Genitourinary: Yes: WNL Musculoskeletal: Yes: WNL Extremities: Yes: WNL Edema: No Peripheral Pulses WNL: Yes Integumentary: Yes: WNL Wound/Incision: Yes: Dressing Dry and Intact Neurological: Yes: WNL ...Motor Strength: WNL Psychiatric: Yes: Other Labs: CBC, BMP 03/14/17 06:15 03/14/17 06:15 INR, PTT INR 0.93 (0.82-1.09) 03/07/17 21:40 Problem List - Problems (1) Abdominal aneurysm Code(s): I71.4 - ABDOMINAL AORTIC ANEURYSM, WITHOUT RUPTURE (2) COPD (chronic obstructive pulmonary disease) Code(s): J44.9 - CHRONIC OBSTRUCTIVE PULMONARY DISEASE, UNSPECIFIED (3) Chronic renal disease Code(s): N18.9 - CHRONIC KIDNEY DISEASE, UNSPECIFIED Qualifiers: (4) Hypertension Code(s): I10 - ESSENTIAL (PRIMARY) HYPERTENSION Qualifiers: (5) Lung malignancy Code(s): C34.90 - MALIGNANT NEOPLASM OF UNSP PART OF UNSP BRONCHUS OR LUNG Qualifiers: Laterality: left (6) Tobacco use Code(s): Z72.0 - TOBACCO USE Assessment/Plan RATE CONTROL FOR AFIB WILL START ELIQUIS OUT PATIENT RENAL DOSE IN 1 WEEK OOB TO CHAIR WOUND CARE PREDNISONE TAPER SEE ME IN MY OFFICE WednesdayFeb HOME NURSING SERVICE UPON DISCHARGE
--- NOTE | 2017-03-14 14:07 | PN ---
Progress Note, Physician History of Present Illness: Pt states she feels better, wants to ambulate with walker - Current Medication List Current Medications: Active Medications Acetaminophen (Tylenol -) 650 mg PO Q4H PRN PRN Reason: FEVER OR PAIN Albuterol Sulfate (Ventolin 0.083% Nebulizer Soln -) 1 amp NEB Q4H PRN PRN Reason: SHORT OF BREATH/WHEEZING Last Admin: 03/14/17 03:04 Dose: 1 amp Benzocaine/Menthol (Cepacol Lozenge -) 1 each MM PRN PRN PRN Reason: SORE THROAT Budesonide/Formoterol Fumarate (Symbicort 160/4.5mcg -) 2 puff IH BID [facility] Last Admin: 03/14/17 13:42 Dose: 2 puff Diltiazem HCl 60 mg/ Diltiazem (HCl 30 mg) 90 mg PO Q6HPO [facility] Last Admin: 03/14/17 13:42 Dose: 90 mg Docusate Sodium (Colace -) 300 mg PO HS [facility] Last Admin: 03/13/17 21:29 Dose: 300 mg Heparin Sodium (Porcine) (Heparin -) 5,000 unit SQ BID [facility] Last Admin: 03/14/17 09:12 Dose: 5,000 unit Oxycodone HCl (Roxicodone -) 5 mg PO Q3H PRN PRN Reason: MODERATE PAIN Last Admin: 03/14/17 11:53 Dose: 5 mg Oxycodone HCl (Roxicodone -) 10 mg PO Q3H PRN PRN Reason: SEVERE PAIN Prednisone (Deltasone -) 40 mg PO DAILY [facility] Last Admin: 03/14/17 13:40 Dose: 40 mg Ranitidine HCl (Zantac -) 150 mg PO BID [facility] Last Admin: 03/14/17 09:13 Dose: 150 mg Tiotropium [place] (Spiriva -) 1 puff IH DAILY [facility] Last Admin: 03/14/17 13:42 Dose: 1 puff - Objective Vital Signs: Vital Signs Temperature 98.3 F 03/14/17 13:33 Pulse Rate 75 03/14/17 13:33 Respiratory Rate 20 03/14/17 13:33 Blood Pressure 148/67 03/14/17 13:33 O2 Sat by Pulse Oximetry (%) 96 03/14/17 10:00 Constitutional: Yes: No Distress Cardiovascular: Yes: Regular Rate and Rhythm Respiratory: Yes: Regular Gastrointestinal: Yes: Normal Bowel Sounds, Soft Labs: CBC, BMP 03/14/17 06:15 03/14/17 06:15 INR, PTT INR 0.93 (0.82-1.09) 03/07/17 21:40 Problem List - Problems (1) Atrial fibrillation Code(s): I48.91 - UNSPECIFIED ATRIAL FIBRILLATION (2) COPD (chronic obstructive pulmonary disease) Code(s): J44.9 - CHRONIC OBSTRUCTIVE PULMONARY DISEASE, UNSPECIFIED (3) Lung malignancy Code(s): C34.90 - MALIGNANT NEOPLASM OF UNSP PART OF UNSP BRONCHUS OR LUNG Qualifiers: Laterality: left Assessment/Plan NSCLC s/p VATS, OSVALDO lobectomy Chest tube removed monitor off antibiotics possible repeat echo clinically stable at this time
--- NOTE | 2017-03-14 14:48 | PN ---
Progress Note (short form) - Note Progress Note: 1. CKD 2. AAA 3. lung cancer 4. HTN 5. hyperkalemia Current Medications Acetaminophen (Tylenol -) 650 mg PO Q4H PRN PRN Reason: FEVER OR PAIN Albuterol Sulfate (Ventolin 0.083% Nebulizer Soln -) 1 amp NEB Q4H PRN PRN Reason: SHORT OF BREATH/WHEEZING Last Admin: 03/14/17 03:04 Dose: 1 amp Benzocaine/Menthol (Cepacol Lozenge -) 1 each MM PRN PRN PRN Reason: SORE THROAT Budesonide/Formoterol Fumarate (Symbicort 160/4.5mcg -) 2 puff IH BID [facility] Last Admin: 03/14/17 13:42 Dose: 2 puff Diltiazem HCl 60 mg/ Diltiazem (HCl 30 mg) 90 mg PO Q6HPO [facility] Last Admin: 03/14/17 13:42 Dose: 90 mg Docusate Sodium (Colace -) 300 mg PO HS [facility] Last Admin: 03/13/17 21:29 Dose: 300 mg Heparin Sodium (Porcine) (Heparin -) 5,000 unit SQ BID [facility] Last Admin: 03/14/17 09:12 Dose: 5,000 unit Oxycodone HCl (Roxicodone -) 5 mg PO Q3H PRN PRN Reason: MODERATE PAIN Last Admin: 03/14/17 11:53 Dose: 5 mg Oxycodone HCl (Roxicodone -) 10 mg PO Q3H PRN PRN Reason: SEVERE PAIN Prednisone (Deltasone -) 40 mg PO DAILY [facility] Last Admin: 03/14/17 13:40 Dose: 40 mg Ranitidine HCl (Zantac -) 150 mg PO BID [facility] Last Admin: 03/14/17 09:13 Dose: 150 mg Tiotropium [place] (Spiriva -) 1 puff IH DAILY [facility] Last Admin: 03/14/17 13:42 Dose: 1 puff Last Vital Signs Temp Pulse Resp BP Pulse Ox 98.3 F 75 20 148/67 96 03/14/17 13:33 03/14/17 13:33 03/14/17 13:33 03/14/17 13:33 03/14/17 10:00 s/p acute sob improved with steroids and nebs alert in nad denies craving for nicotine Lungs clear heart Reg rate and rhythm Abd soft Ext no edema CBC, BMP 03/14/17 06:15 03/14/17 06:15 IMP- ckd baseline s creat 1.8 COPD Plan- follow bmp
[2017-03-14] MEDS: DOCUSATE SODIUM 100 MG CAPSULE (FP) PO SCH (21:00)
[2017-03-15] MEDS ORDERED: dilTIAZem HCL 60 MG TABLET (FP) ONE ×2 (01:26→05:45)
[2017-03-15] MEDS ORDERED: dilTIAZem HCL 30 MG TABLET (FP) ONE ×2 (01:26→05:45)
[2017-03-15] MEDS: ACETAMINOPHEN 325 MG TABLET (FP) PO PRN ×2 (01:27→08:49)
[2017-03-15] MEDS: DILTIAZEM 60 MG, DILTIAZEM 30 MG PO SCH ×2 (01:27→05:48)
--- NOTE | 2017-03-15 06:38 | DS ---
Physical Examination Vital Signs: Vital Signs Temperature 97.8 F 03/15/17 05:30 Pulse Rate 77 03/15/17 05:30 Respiratory Rate 17 03/15/17 05:30 Blood Pressure 137/83 03/15/17 05:30 O2 Sat by Pulse Oximetry (%) 98 03/14/17 21:00 Constitutional: Yes: No Distress Eyes: Yes: WNL HENT: Yes: WNL Neck: Yes: WNL Cardiovascular: Yes: Pulse Irregular Respiratory: Yes: WNL Gastrointestinal: Yes: WNL Renal/: Yes: WNL Musculoskeletal: Yes: WNL Extremities: Yes: WNL Edema: No Integumentary: Yes: WNL Wound/Incision: Yes: Clean/Dry Neurological: Yes: WNL ...Motor Strength: WNL Psychiatric: Yes: WNL Labs: CBC, BMP 03/14/17 06:15 03/14/17 06:15 Discharge Summary Reason For Visit: CHRONIC KIDNEY DISEASE,DEHYDRATED Current Active Problems Atrial fibrillation (Acute) Cardiac mass (Acute) Dehydration (Acute) Hoarseness (Acute) Procedures: Principal: LOBEECTOMY LUNG Other Procedures: LABS, CULTURES Hospital Course: ADMITTED FOR LEFT LUNG LOBECTOMY FOR + CANCER, SURGERY SUCCESSFUL, WILL NEED FOLLOW UP WITH CTS AND ONCOLOGY OUTPATIENT. PATIENT DEVELOPED NEW ONSET POST -OP AFIB, WILL NEED ANTICOAGULATION TO START IN 1 WEEK. I WILL SEE PATIENT IN MY OFFICE IN 2 DAYS FOR FOLLOW UP. Condition: Stable - Instructions Diet, Activity, Other Instructions: [facility] LOW SODIUM DIET RENAL FOLLOW UP ONCOLOGY AND CTS FOLLOW UP Referrals: Kanchan Truong MD [Primary Care Provider] - Disposition: VNS/HOME HEALTH CARE - Home Medications Comprehensive Discharge Medication List: Ambulatory Orders Amlodipine Besylate 10 mg PO HS 02/08/17 Lorazepam [Ativan] 0.5 mg PO HS 03/07/17
[2017-03-15] MEDS ORDERED: PT OWN MED DRAWER 7, Y5N ONE (08:47)
[2017-03-15] MEDS: HEPARIN NA (PORCINE) 5,000 UNITS/ML 1ML VIAL SQ SCH (09:03)
[2017-03-15] MEDS: predniSONE 20 MG TABLET (UD) PO SCH (09:04)
[2017-03-15] MEDS: RANITIDINE HCL 150 MG TABLET (FP) PO SCH (09:04)
[2017-03-15 09:54] VITALS: BP 134/71; TEMP 97.5
[2017-03-15 10:23] VITALS: PULSE 69
== END 2017-03-15 12:34 | disposition home health service (06) | DRG 164 ==
LOC: JER 13:47 → JERBED 14:46 → J6S 18:40 → JICU 03-08 15:45 → J4S 03-11 22:12
PROVIDERS: ADMIT Family Medicine; ATTEND Family Medicine
PROC: 0BJ08ZZ Inspection of Tracheobronchial Tree, Via Natural or Artificial Opening Endoscopic (ICD-10-PCS; 2017-03-08)
PROC: 0BTG4ZZ Resection of Left Upper Lung Lobe, Percutaneous Endoscopic Approach (ICD-10-PCS; principal; 2017-03-08 07:30)
PROC: 07B74ZX Excision of Thorax Lymphatic, Percutaneous Endoscopic Approach, Diagnostic (ICD-10-PCS; 2017-03-08 07:30)
PROC: 0W9B40Z Drainage of Left Pleural Cavity with Drainage Device, Percutaneous Endoscopic Approach (ICD-10-PCS; 2017-03-10)
PROC: 0CJS8ZZ Inspection of Larynx, Via Natural or Artificial Opening Endoscopic (ICD-10-PCS; 2017-03-10)
PROC: 0BPLX0Z Removal of Drainage Device from Left Lung, External Approach (ICD-10-PCS; 2017-03-13)
DX: C34.12 Malignant neoplasm of upper lobe, left bronchus or lung (principal); N18.4 Chronic kidney disease, stage 4 (severe); J98.11 Atelectasis; I97.89 Other postprocedural complications and disorders of the circulatory system, not elsewhere classified; I48.91 Unspecified atrial fibrillation; I71.4 Abdominal aortic aneurysm, without rupture; I12.9 Hypertensive chronic kidney disease with stage 1 through stage 4 chronic kidney disease, or unspecified chronic kidney disease; F17.210 Nicotine dependence, cigarettes, uncomplicated; E78.00 Pure hypercholesterolemia, unspecified; R00.0 Tachycardia, unspecified; K21.9 Gastro-esophageal reflux disease without esophagitis; K59.09 Other constipation; J44.9 Chronic obstructive pulmonary disease, unspecified; E87.5 Hyperkalemia; J02.9 Acute pharyngitis, unspecified; R49.0 Dysphonia; E21.2 Other hyperparathyroidism; H91.8X9 Other specified hearing loss, unspecified ear; I08.1 Rheumatic disorders of both mitral and tricuspid valves; Y83.8 Other surgical procedures as the cause of abnormal reaction of the patient, or of later complication, without mention of misadventure at the time of the procedure
CPT/HCPCS: 36415; 71010-TC; 80048; 80053; 81003; 81015; 85025; 85027; 85610; 86850; 86900; 86901; 86922; 87040; 87086; 88307-TC; 88331-TC; 93005; 93010; 93306-TC; 94002; 94640; 94760; 97116-GP; 97161-GP; 99283-25; J1644

== ENCOUNTER 2017-05-25 11:36 | Inpatient (IN) | payer OTHER ==
--- NOTE | 2017-05-25 12:31 | PDOC ---
History of Present Illness - General Chief Complaint: Rectal Bleed Stated Complaint: CONSTIPATION Time Seen by Provider: 05/25/17 12:30 History Source: Patient - History of Present Illness Initial Comments: 05/25/17 13:10 77yo woman with PMH of Afib (on Eliquis), HTN, COPD, CKD stage 4, diverticulitis , and NSCLC s/p LLL lobectomy on 03/06/17 who presents with increasing weakness for the past month and 2x dark tarry stools over the past 4 days associated with some abdominal discomfort. She also reports two episodes of NBNB emesis over the past 2-3 days. She has chronic constipation for which she takes Senna daily, MOM prn, but often requires self-evacuation. She has never had a colonoscopy or endoscopy. No recent NSAID use, Iron supplements, or pepto bismal. Family history of bone cancer (uncle) only. PMH: -Abdominal Aneurysm, last 5.6cm -hyperparathyroidism -GERD -mitral regurgitation PSx: 03/06/17 L lobectomy PCP: Alexi Wolfe Renal: Davi Onc: Isacc WRIGHT Surgery: Nicastri 05/25/17 13:35 Past History - Travel Traveled outside of the country in the last 30 days: No Close contact w/someone who was outside of country & ill: No - Past Medical History Allergies/Adverse Reactions: Allergies Allergy/AdvReac Type Severity Reaction Status Date / Time No Known Allergies Allergy Verified 05/25/17 11:50 Home Medications: Ambulatory Orders Lorazepam [Ativan] 0.5 mg PO HS 03/07/17 Acetaminophen [Tylenol .Regular Strength -] 650 mg PO Q4H PRN #0 tablet Budesonide/Formeterol Fumarate [SYMBICORT 160/4.5mcg -] 2 puff IH BID #1 inhaler 03/15/17 Diltiazem Cd [Cardizem Cd -] 180 mg PO DAILY #30 cap 03/15/17 Prednisone [Deltasone -] 40 mg PO DAILY #10 tablet 03/15/17 Apixaban [Eliquis] 2.5 mg PO HS 04/28/17 Anemia: No Asthma: No Cancer: Yes (LUNG L) Cardiac Disorders: Yes (TACHYCARDIA ;BBB, Afib) CVA: No COPD: No Dementia: No Diabetes: No Dialysis: No (stage 4 kidney failure,no hd) GI Disorders: Yes (DIVERTICULITIS) Disorders: No HTN: Yes Hypercholesterolemia: Yes Liver Disease: No Seizures: No Thyroid Disease: No Lung CA: Yes Other medical history: AAA no surgery - Surgical History Abdominal Surgery: No Appendectomy: No Cardiac Surgery: No Cholecystectomy: No Lung Surgery: Yes (L LOBECTOMY) Neurologic Surgery: No Orthopedic Surgery: No - Immunization History Td Vaccination: Yes Immunization Up to Date: Yes - Suicide/Smoking/Psychosocial Hx Smoking Status: Yes Smoking History: Current every day smoker Have you smoked in the past 12 months: Yes Number of Cigarettes Smoked Daily: 5 If you are a former smoker, when did you quit?: 1 week ago Information on smoking cessation initiated: Yes 'Breaking Loose' booklet given: 05/25/17 Hx Alcohol Use: No Drug/Substance Use Hx: No Substance Use Type: None Hx Substance Use Treatment: No Review of Systems - Review of Systems Constitutional: Yes: Weakness (20 lbs since the lobectomy), Unintentional Wgt. Loss HEENTM: Yes: Blurred Vision Respiratory: No: Cough, Shortness of Breath Cardiac (ROS): Yes: Symptoms Reported, Other. No: Chest Pain, Palpitations, Syncope, Chest Tightness ABD/GI: Yes: Constipated, Vomiting, Tarry Stools : No: Dysuria, Incontinence All Other Systems: Reviewed and Negative *Physical Exam - Vital Signs Last Vital Signs Temp Pulse Resp BP Pulse Ox 98.1 F 57 L 18 134/62 95 05/25/17 11:51 05/25/17 11:51 05/25/17 11:51 05/25/17 11:51 05/25/17 11:51 - Physical Exam General Appearance: Yes: Nourished, Appropriately Dressed HEENT: positive: Normal ENT Inspection Neck: positive: Supple Respiratory/Chest: positive: Lungs Clear, Decreased Breath Sounds (on Left). negative: Wheezing Cardiovascular: positive: Regular Rhythm, Regular Rate, S1, S2 Vascular Pulses: Dorsalis-Pedis (R): 2+, Doralis-Pedis (L): 2+ Gastrointestinal/Abdominal: positive: Soft, Increased Bowel Sounds, Tenderness ( mild ttp epigastrum and LUQ) Rectal Exam: positive: heme positive stool Extremity: negative: Pedal Edema, Calf Tenderness Neurologic: positive: Fully Oriented, Alert Heart Score/ECG Review - ECG Impressions Comment:: 05/25/17 15:04 EKG: Afib, ventricular rate 83, PVCs, lateral strain pattern, QTc 432 ED Treatment Course - LABORATORY CBC & Chemistry Diagram: 05/25/17 13:15 05/25/17 13:15 Medical Decision Making - Medical Decision Making 05/25/17 14:13 77yo woman with Afib on Eliquis and NSCLC s/p L lobectomy on 03/06 who presents with 2 episodes of melena and abdominal discomfort for the past several days. Will work-up for suspected UGIB. -CBC, CMP, Coags, lipase, T&S, stool guaiac -EKG, CXR -CT AP w/o contrast (CKD stage 4, reports can't have PO) -Protonix 40mg IVP 05/25/17 15:28 CBC, BMP 05/25/17 13:15 05/25/17 13:15 Vital Signs Temperature 98.1 F 05/25/17 11:51 Pulse Rate 57 L 05/25/17 11:51 Respiratory Rate 18 05/25/17 11:51 Blood Pressure 134/62 05/25/17 11:51 O2 Sat by Pulse Oximetry (%) 95 05/25/17 11:51 Patient's VSS, stool guaiac is positive. Her Hgb is near baseline at 10.2, which is reassuring that there is no brisk bleed. No current indication for transfusion at this time. Will hold Eliquis for now. Pt admitted to / under Dr. Truong for evaluation of suspected GIB. Dr. Doe consulted for GI. *DC/Admit/Observation/Transfer Diagnosis at time of Disposition: Melena, Stool guaiac positive - Discharge Dispostion Condition at time of disposition: Stable Admit: Yes Decision to Admit order Date/Time: 05/25/17 15:[address] Truong. Patient will be admitted to /S for further work-up. Dr. Doe will be consulted for GI. - Referrals - Patient Instructions - Post Discharge Activity
[2017-05-25 13:30] LABS: BASO % 0.3 % (0-2.0); EOS % 0.6 % (0-4.5); HEMATOCRIT 35.2 % (32.4-45.2); HEMOGLOBIN 12.2 GM/dL (10.7-15.3); LYMPH % 8.1 % (8-40); MCHC 34.5 g/dl (32.0-36.0); MEAN CELL VOLUME 89.9 fl (80-96); MEAN PLT VOLUME 7.5 fl (7.5-11.1); MONO % 7.2 % (3.8-10.2); NEUT % 83.8 % (42.8-82.8); PLATELET COUNT 284 K/MM3 (134-434); RBC 3.92 M/mm3 (3.60-5.2); RDW 14.6 % (11.6-15.6); WHITE BLOOD COUNT 10.2 K/mm3 (4.0-10.0)
[2017-05-25] MEDS ORDERED: PANTOPRAZOLE SODIUM 40 MG VIAL IVPUSH ONE (13:51)
[2017-05-25 14:22] LABS: ALBUMIN 2.9 g/dl (3.4-5.0); ANION GAP 11 (8-16); BILIRUBIN,TOTAL 0.3 mg/dL (0.2-1.0); BLOOD UREA NITROGEN 51 mg/dL (7-18); CALCIUM 9.2 mg/dL (8.5-10.1); CHLORIDE 98 mmol/L (98-107); CO2 27 mmol/L (21-32); CREATININE 3.7 mg/dL (0.55-1.02); GLUCOSE,RANDOM 217 mg/dL (74-106); LIPASE 319 U/L (73-393); POTASSIUM 4.4 mmol/L (3.5-5.1); SGOT/AST 10 U/L (15-37); SGPT/ALT 18 U/L (12-78); SODIUM 136 mmol/L (136-145); TOT PROT 6.6 g/dl (6.4-8.2)
[2017-05-25 14:29] LABS: ALK PHOS 91 U/L (45-117)
[2017-05-25 14:39] LABS: INR 1.08 (0.82-1.09); PROTHROMBIN TIME (PATIENT) 12.2 SEC (9.98-11.88)
[2017-05-25 14:42] LABS: ACTIVATED PTT 26.8 SECONDS (26.9-34.4)
--- NOTE | 2017-05-25 15:06 | PDOC ---
Attending Attestation - Resident Resident Name: Mirta Kirk - ED Attending Attestation I have performed the following: I have examined & evaluated the patient, The case was reviewed & discussed with the resident, I agree w/resident's findings & plan, Exceptions are as noted - HPI HPI: 05/25/17 15:03 77-year-old female with history of stage IV renal failure, distant history of peptic ulcer disease and diverticulitis, baseline constipation presents with 2 episodes over 4 days of dark stool, generalized abdominal discomfort, and two episodes of nbnb emesis. no h/o abd surgeries, never had egd or colonoscopy. had L lobectomy for lung ca about 3 months ago, no radiation or chemo. - Physicial Exam PE: 05/25/17 15:04 VSS, BP normal and no tachycardia abd soft/nd. tender in the RLQ, L middle and LUQ, no guarding/rebound. dark stool, guaiac positive on resident exam - Medical Decision Making 05/25/17 15:05 My resident note 77-year-old female on a liquids for atrial fibrillation, history of peptic ulcer disease and diverticulitis presents with abdominal discomfort and dark stool. Hemodynamically stable, some tenderness on exam. Question upper GI bleed from anticoagulants and history of ulcer disease, question constipation/colitis/ diverticulitis. Labs show stable hemoglobin Chemistries at baseline PPI given CT of the abdomen and pelvis without contrast given history of renal disease Admission for GI workup 05/25/17 15:20 accepted for inpatient med/surg by Dr. Truong, Dr. Doe consulted as requested Heart Score/ECG Review #1 05/25/17 15:06 afib with pvc. lateral strain pattern. no acute KATJA.
--- NOTE | 2017-05-25 15:23 | HP ---
Admitting History and Physical - Primary Care Physician PCP: Kanchan Truong - Admission Chief Complaint: SEVERE ABD PAIN WORSENING ABD ANEURYSM History of Present Illness: 77 Y/O FEMALE WITH ABD PAIN AND ENLARGED ABD ANEURYSM. PATIENT HAS A HISTORY OF LEFT LUNG LOBECTOMY FOR ADENOCARCINOMA 3 MONTHS AGO. DEVELOPED POST-OP AFIB, HAS H/O HTN, ANXIETY. CKD. History Source: Patient, Medical Record - Past Medical History Cardiovascular: Yes: AFIB, Aneurysm, HTN, Mitral Insufficiency Pulmonary: Yes: COPD, Other (LUNG MASS) Gastrointestinal: Yes: GERD Renal/: Yes: Renal Failure Rheumatology: Yes: Other Endocrine: Yes: Hyperparathyroidism (Hearing loss) - Past Surgical History Past Surgical History: Yes: Thoracotomy - Smoking History Smoking history: Current every day smoker Have you smoked in the past 12 months: Yes Aproximately how many cigarettes per day: 5 If you are a former smoker, when did you quit?: 1 week ago - Alcohol/Substance Use Hx Alcohol Use: No Home Medications - Allergies Allergies/Adverse Reactions: Allergies Allergy/AdvReac Type Severity Reaction Status Date / Time No Known Allergies Allergy Verified 05/25/17 11:50 - Home Medications Home Medications: Ambulatory Orders Lorazepam [Ativan] 0.5 mg PO HS 03/07/17 Acetaminophen [Tylenol .Regular Strength -] 650 mg PO Q4H PRN #0 tablet Budesonide/Formeterol Fumarate [SYMBICORT 160/4.5mcg -] 2 puff IH BID #1 inhaler 03/15/17 Diltiazem Cd [Cardizem Cd -] 180 mg PO DAILY #30 cap 03/15/17 Prednisone [Deltasone -] 40 mg PO DAILY #10 tablet 03/15/17 Apixaban [Eliquis] 2.5 mg PO HS 04/28/17 Review of Systems - Review of Systems Constitutional: reports: Weakness Eyes: reports: No Symptoms HENT: reports: No Symptoms Neck: reports: No Symptoms Cardiovascular: reports: No Symptoms Respiratory: reports: No Symptoms Gastrointestinal: reports: Abdominal Pain, Constipation Genitourinary: reports: No Symptoms Musculoskeletal: reports: Back Pain Integumentary: reports: No Symptoms Neurological: reports: No Symptoms Endocrine: reports: No Symptoms, Increased Thirst Hematology/Lymphatic: reports: No Symptoms Psychiatric: reports: Anxiety Physical Examination Vital Signs: Vital Signs Temperature 98.1 F 05/25/17 11:51 Pulse Rate 57 L 05/25/17 11:51 Respiratory Rate 18 05/25/17 11:51 Blood Pressure 134/62 05/25/17 11:51 O2 Sat by Pulse Oximetry (%) 95 05/25/17 11:51 Constitutional: Yes: Moderate Distress Eyes: Yes: WNL HENT: Yes: WNL Neck: Yes: WNL Cardiovascular: Yes: WNL Respiratory: Yes: WNL Gastrointestinal: Yes: Distention, Tenderness Renal/: Yes: WNL Musculoskeletal: Yes: Back Pain, Muscle Weakness Extremities: Yes: WNL Edema: No Peripheral Pulses WNL: Yes Integumentary: Yes: WNL Wound/Incision: Yes: Clean/Dry Neurological: Yes: WNL ...Motor Strength: WNL Psychiatric: Yes: WNL Labs: CBC, BMP 05/25/17 13:15 05/25/17 13:15 Imaging - Results Cat Scan: Report Reviewed Problem List - Problems (1) Melena Code(s): K92.1 - MELENA (2) Stool guaiac positive Code(s): R19.5 - OTHER FECAL ABNORMALITIES (3) Abdominal aneurysm Code(s): I71.4 - ABDOMINAL AORTIC ANEURYSM, WITHOUT RUPTURE (4) Atrial fibrillation Code(s): I48.91 - UNSPECIFIED ATRIAL FIBRILLATION (5) COPD (chronic obstructive pulmonary disease) Code(s): J44.9 - CHRONIC OBSTRUCTIVE PULMONARY DISEASE, UNSPECIFIED Qualifiers: Emphysema type: centrilobular (6) Chronic renal disease Code(s): N18.9 - CHRONIC KIDNEY DISEASE, UNSPECIFIED Qualifiers: Chronic kidney disease stage: stage 4 (severe) Qualified Code(s): N18.4 - Chronic kidney disease, stage 4 (severe) (7) Constipation Code(s): K59.00 - CONSTIPATION, UNSPECIFIED (8) Lung malignancy Code(s): C34.90 - MALIGNANT NEOPLASM OF UNSP PART OF UNSP BRONCHUS OR LUNG Qualifiers: Laterality: left Assessment/Plan GI EVAL FOR SEVERE CONSTIPATION AND PAIN VASC SX EVAL FOR ANEURYSM RENAL EVAL PAIN CONTROL CHECK LABS CT SCAN SHOWS WORSENING ABD ANEURYSM
[2017-05-25] MEDS: BUDESONIDE/FORMETEROL FUMARATE 160/4.5 mcg INHALER IH SCH ×2 (17:48→22:48)
[2017-05-25 18:32] VITALS: BMI 21.7
--- NOTE | 2017-05-25 20:38 | PN ---
Progress Note (short form) - Note Progress Note: Vascular Surgery Pt well known to vascular surgery service. Pt had lobectomy for CA in sept. CT without contrast reviewed. Aneurysm is now 5.8. Up from 5.4 Pt here for her constipation. Pt still a current smoker -- smoking 3-4 cig a day. Pe Head - NC/At Lung - CTA Heart - afib abd - soft,nt,nd ext - warm, pink A/P 5.8 cm AAA . Now getting bigger. Probably due to continued smoking. GI eval for this abd pain and constipation. Oncology input on prognosis for her lung CA -- does she need chemo or radiation. Will need endovascular repair of her AAA on this admission once cleared from a medical and cardiology standpoint. Josef Qureshi DO
[2017-05-25] MEDS: ACETAMINOPHEN 325 MG TABLET (FP) PO PRN (22:49)
[2017-05-25] MEDS: LORazepam 0.5 MG TABLET PO PRN (22:57)
[2017-05-26 07:56] LABS: HEMATOCRIT 33.3 % (32.4-45.2); HEMOGLOBIN 11.2 GM/dL (10.7-15.3); MCH 30.5 pg (25.7-33.7); MCHC 33.6 g/dl (32.0-36.0); MEAN CELL VOLUME 90.7 fl (80-96); MEAN PLT VOLUME 7.3 fl (7.5-11.1); PLATELET COUNT 256 K/MM3 (134-434); RBC 3.67 M/mm3 (3.60-5.2); RDW 14.7 % (11.6-15.6); WHITE BLOOD COUNT 9.1 K/mm3 (4.0-10.0)
[2017-05-26 08:34] LABS: ALBUMIN 2.7 g/dl (3.4-5.0); ALK PHOS 81 U/L (45-117); ANION GAP 8 (8-16); BLOOD UREA NITROGEN 49 mg/dL (7-18); CALCIUM 8.2 mg/dL (8.5-10.1); CHLORIDE 106 mmol/L (98-107); CO2 26 mmol/L (21-32); CREATININE 3.1 mg/dL (0.55-1.02); GLUCOSE,RANDOM 99 mg/dL (74-106); POTASSIUM 4.7 mmol/L (3.5-5.1); SGOT/AST 5 U/L (15-37); SGPT/ALT 16 U/L (12-78); SODIUM 140 mmol/L (136-145)
[2017-05-26 08:35] LABS: BILIRUBIN,TOTAL 0.3 mg/dL (0.2-1.0)
[2017-05-26] MEDS ORDERED: PT OWN MED DRAWER 7, Y5N ONE ×2 (09:35→21:50)
[2017-05-26] MEDS ORDERED: predniSONE 20 MG TABLET (UD) PO SCH (10:00)
--- NOTE | 2017-05-26 10:00 | PN ---
Progress Note (short form) - Note Progress Note: Vascular Surgery Pt seen and examined. AAA 5.8cm. Spoke to GI -- they are concerned about a aortoenteric fistula. Very unlikely. They would like a NGT placed to see if there is any blood in the GI tract. If it comes back clean, then there would be no need to do a EGD to check the second portion of the duodenum. Will ask nurses to place NGT. PLease optimize Cr -- will need to give contrast during the case. Renal will see pt. Josef paul DO
[2017-05-26] MEDS: BUDESONIDE/FORMETEROL FUMARATE 160/4.5 mcg INHALER IH SCH ×2 (10:11→23:04)
--- NOTE | 2017-05-26 10:29 | PN ---
Progress Note, Physician Chief Complaint: AWAKE ALERT CONSTIPATED SEVERELY - Current Medication List Current Medications: Active Medications Acetaminophen (Tylenol -) 650 mg PO Q6H PRN PRN Reason: FEVER OR PAIN Last Admin: 05/25/17 22:49 Dose: 650 mg Budesonide/Formoterol Fumarate (Symbicort 160/4.5mcg -) 1 puff IH BID [facility] Last Admin: 05/26/17 10:11 Dose: 1 inhaler Diltiazem HCl (Cardizem Cd -) 180 mg PO DAILY [facility] Last Admin: 05/26/17 10:11 Dose: 180 mg Lorazepam (Ativan -) 0.5 mg PO TID PRN PRN Reason: ANXIETY Last Admin: 05/25/17 22:57 Dose: 0.5 mg Prednisone (Deltasone -) 40 mg PO DAILY [facility] Last Admin: 05/26/17 10:11 Dose: Not Given - Objective Vital Signs: Vital Signs Temperature 98.4 F 05/26/17 06:37 Pulse Rate 83 05/26/17 06:37 Respiratory Rate 20 05/26/17 06:37 Blood Pressure 124/63 05/26/17 06:37 O2 Sat by Pulse Oximetry (%) 96 05/26/17 02:00 Constitutional: Yes: Moderate Distress Eyes: Yes: WNL HENT: Yes: WNL Neck: Yes: WNL Cardiovascular: Yes: Pulse Irregular Respiratory: Yes: WNL Gastrointestinal: Yes: Distention Genitourinary: Yes: WNL Musculoskeletal: Yes: WNL Extremities: Yes: WNL Edema: No Peripheral Pulses WNL: Yes Integumentary: Yes: WNL Wound/Incision: Yes: Clean/Dry Neurological: Yes: WNL ...Motor Strength: WNL Psychiatric: Yes: WNL Labs: CBC, BMP 05/26/17 06:00 05/26/17 06:00 INR, PTT INR 1.08 (0.82-1.09) 05/25/17 14:07 Problem List - Problems (1) Melena Code(s): K92.1 - MELENA (2) Stool guaiac positive Code(s): R19.5 - OTHER FECAL ABNORMALITIES (3) Abdominal aneurysm Code(s): I71.4 - ABDOMINAL AORTIC ANEURYSM, WITHOUT RUPTURE (4) Atrial fibrillation Code(s): I48.91 - UNSPECIFIED ATRIAL FIBRILLATION (5) COPD (chronic obstructive pulmonary disease) Code(s): J44.9 - CHRONIC OBSTRUCTIVE PULMONARY DISEASE, UNSPECIFIED Qualifiers: Emphysema type: centrilobular (6) Chronic renal disease Code(s): N18.9 - CHRONIC KIDNEY DISEASE, UNSPECIFIED Qualifiers: Chronic kidney disease stage: stage 4 (severe) Qualified Code(s): N18.4 - Chronic kidney disease, stage 4 (severe) (7) Constipation Code(s): K59.00 - CONSTIPATION, UNSPECIFIED (8) Lung malignancy Code(s): C34.90 - MALIGNANT NEOPLASM OF UNSP PART OF UNSP BRONCHUS OR LUNG Qualifiers: Laterality: left Assessment/Plan GI EVAL FOR SEVERE CONSTIPATION AND PAIN VASC SX EVAL FOR ANEURYSM D/W DR SANTAMARIA WILL CLEAR MEDICALLY AND OPTIMIZE RENAL FUNCTION RENAL EVAL PAIN CONTROL CHECK LABS CT SCAN SHOWS WORSENING ABD ANEURYSM STOP XARELTO FOR 2 DAYS, THEN START IV HEPARIN IF NEEDED FOR AFIB
--- NOTE | 2017-05-26 12:13 | PN ---
Progress Note (short form) - Note Progress Note: ABD/Pelvis CT with PO contrast ordered to r/o aortoenteric fistula. Plan for EVAR Medical optimization / clearance for impending surgery
--- NOTE | 2017-05-26 13:00 | EKG ---
Test Reason : Blood Pressure : / mmHG Vent. Rate : 083 BPM Atrial Rate : 375 BPM P-R Int : 000 ms QRS Dur : 114 ms QT Int : 368 ms P-R-T Axes : 000 073 -49 degrees QTc Int : 432 ms ATRIAL FIBRILLATION WITH PREMATURE VENTRICULAR OR ABERRANTLY CONDUCTED COMPLEXES INCOMPLETE RIGHT BUNDLE BRANCH BLOCK ABNORMAL ECG WHEN COMPARED WITH ECG OF 02-MAY-2017 12:11, ATRIAL FIBRILLATION HAS REPLACED WIDE QRS RHYTHM Confirmed by FRIEDA RAMIREZ, [place] ([id number]) on 05/26/2017 1:00:09 PM Referred By: Confirmed By:MO MALAVE MD
--- NOTE | 2017-05-26 13:47 | CONSULT ---
Consult Consult Specialty:: Oncology Referred by:: - History of Present Illness History of Present Illness: 77-year-old female with history of stage I lung ca, s/p resection in 02/2017. CKD Stage IV, distant history of peptic ulcer disease and diverticulitis, baseline constipation presents with 2 episodes over 4 days of dark stool, generalized abdominal discomfort, and vomiting no h/o abd surgeries, never had egd or colonoscopy. had L lobectomy for lung ca in 02/2017, did not follow-up in office , had scheduled appointments. Oncology consulted for the noted history. Pt seen and examined Her main complain is constipation and dark stools - Past Medical History Cardio/Vascular: Yes: AFIB, Aneurysm, HTN, Mitral Insufficiency Pulmonary: Yes: COPD, Other (LUNG MASS) Gastrointestinal: Yes: GERD Renal/: Yes: Renal Failure ...: No Rheumatology: Yes: Other Endocrine: Yes: Hyperparathyroidism (Hearing loss) - Past Surgical History Past Surgical History: Yes: Thoracotomy - Alcohol/Substance Use Hx Alcohol Use: No - Smoking History Smoking history: Current every day smoker Have you smoked in the past 12 months: Yes Aproximately how many cigarettes per day: 5 If you are a former smoker, when did you quit?: 1 week ago Home Medications - Allergies Allergies/Adverse Reactions: Allergies Allergy/AdvReac Type Severity Reaction Status Date / Time No Known Allergies Allergy Verified 05/25/17 11:50 - Home Medications Home Medications: Ambulatory Orders Lorazepam [Ativan] 0.5 mg PO HS 03/07/17 Acetaminophen [Tylenol .Regular Strength -] 650 mg PO Q4H PRN #0 tablet Budesonide/Formeterol Fumarate [SYMBICORT 160/4.5mcg -] 2 puff IH BID #1 inhaler 03/15/17 Diltiazem Cd [Cardizem Cd -] 180 mg PO DAILY #30 cap 03/15/17 Prednisone [Deltasone -] 40 mg PO DAILY #10 tablet 03/15/17 Apixaban [Eliquis] 2.5 mg PO HS 04/28/17 Review of Systems - Review of Systems Constitutional: denies: Chills, Diaphoresis, Fever, Lethargy, Loss of Appetite, Unintentional Wgt. Loss HENT: denies: Difficult Swallowing Gastrointestinal: reports: Abdominal Pain, Constipation, Melena Musculoskeletal: reports: No Symptoms Neurological: reports: No Symptoms Endocrine: reports: No Symptoms Hematology/Lymphatic: reports: No Symptoms Physical Exam Vital Signs: Vital Signs Temperature 98.4 F 05/26/17 06:37 Pulse Rate 83 05/26/17 06:37 Respiratory Rate 20 05/26/17 06:37 Blood Pressure 124/63 05/26/17 06:37 O2 Sat by Pulse Oximetry (%) 96 05/26/17 02:00 Constitutional: Yes: Well Nourished, Mild Distress Eyes: Yes: Conjunctiva Clear HENT: Yes: Atraumatic, Normocephalic Neck: Yes: Supple, Trachea Midline Cardiovascular: Yes: Regular Rate and Rhythm Respiratory: Yes: Regular, CTA Bilaterally Gastrointestinal: Yes: Tenderness Musculoskeletal: Yes: WNL Extremities: Yes: WNL Edema: No Labs: CBC, BMP 05/26/17 06:00 05/26/17 06:00 Imaging - Results X-ray: Report Reviewed Cat Scan: Report Reviewed Assessment/Plan Stage IB. ([id number]) Squamous Lung cancer s/p resection. ( left sided VATS procedure and OSVALDO lobectomy.) AAA Afib on eliquis CKD Severe constipation Stool occult positive Melanotic stools -No chemo/RT in the adjuvant Stage IB lung, recommend continued close surveillance, especially she as she still is an active smoker. -repeat CT Chest ordered, as CXR report reviewed , recommended for further evaluation of LLL consolidation. -Pleural fluid cytology, earlier this month was negative for malignancy -Vascular recs noted -For Afib: Eliquis presently on hold , cardiology consult -monitor Cr. -Stool occult positive/melanotic stools , GI consult. -smoking cessation counselling. will follow.
--- NOTE | 2017-05-26 14:36 | CON.CARD ---
Consult Consult Specialty:: Cardiology Referred by:: Dr Truong Reason for Consultation:: preop, afib - History of Present Illness Chief Complaint: abd pain History of Present Illness: 77 year old female with a pmhx of htn, hld, ckd stage 4, afib on apixaban ( intolerant to Xarelto), Lung CA s/p recent L VATS and lobectomy complicated by hemothorax s/p drainage, enlarging AAA who is awaiting EVAR. No chest pain, orthopnea, pnd or edema. Exercise tolerance is poor. Echo 02/25/17 nlef mod to severe MR/TR complex TV mass ID workup was negative. - History Source History Provided By: Patient, Medical Record - Past Medical History Cardio/Vascular: Yes: AFIB, Aneurysm, HTN, Mitral Insufficiency Pulmonary: Yes: COPD, Other (LUNG MASS) Gastrointestinal: Yes: GERD Renal/: Yes: Renal Failure ...: No Rheumatology: Yes: Other Endocrine: Yes: Hyperparathyroidism (Hearing loss) - Past Surgical History Past Surgical History: Yes: Thoracotomy - Alcohol/Substance Use Hx Alcohol Use: No - Smoking History Smoking history: Current every day smoker Have you smoked in the past 12 months: Yes Aproximately how many cigarettes per day: 5 If you are a former smoker, when did you quit?: 1 week ago Home Medications - Allergies Allergies/Adverse Reactions: Allergies Allergy/AdvReac Type Severity Reaction Status Date / Time No Known Allergies Allergy Verified 05/25/17 11:50 - Home Medications Home Medications: Ambulatory Orders Lorazepam [Ativan] 0.5 mg PO HS 03/07/17 Acetaminophen [Tylenol .Regular Strength -] 650 mg PO Q4H PRN #0 tablet Budesonide/Formeterol Fumarate [SYMBICORT 160/4.5mcg -] 2 puff IH BID #1 inhaler 03/15/17 Diltiazem Cd [Cardizem Cd -] 180 mg PO DAILY #30 cap 03/15/17 Prednisone [Deltasone -] 40 mg PO DAILY #10 tablet 03/15/17 Apixaban [Eliquis] 2.5 mg PO HS 04/28/17 Family Disease History - Family Disease History Family History: Denies Review of Systems - Review of Systems Constitutional: reports: Malaise Eyes: reports: No Symptoms HENT: reports: No Symptoms Neck: reports: No Symptoms Cardiovascular: reports: No Symptoms, Shortness of Breath Respiratory: reports: Exercise Intolerance, SOB on Exertion Gastrointestinal: reports: Abdominal Pain, Constipation Vital Signs: Vital Signs Temperature 98.4 F 05/26/17 06:37 Pulse Rate 83 05/26/17 06:37 Respiratory Rate 20 05/26/17 06:37 Blood Pressure 124/63 05/26/17 06:37 O2 Sat by Pulse Oximetry (%) 96 05/26/17 02:00 Constitutional: Yes: No Distress, Calm Eyes: Yes: Conjunctiva Clear, EOM Intact HENT: Yes: Atraumatic, Normocephalic Neck: Yes: Supple, Trachea Midline Respiratory: Yes: CTA Bilaterally Gastrointestinal: Yes: Normal Bowel Sounds, Soft Cardiovascular: Yes: Pulse Irregular JVD: No Carotid Bruit: No PMI: Non-Displaced Heart Sounds: Yes: S1, S2 Murmur: Yes: Systolic Murmur, Grade 2 Extremities: Yes: WNL Edema: No Peripheral Pulses WNL: Yes - Other Data Labs, Other Data: CBC, BMP 05/26/17 06:00 05/26/17 06:00 INR, PTT INR 1.08 (0.82-1.09) 05/25/17 14:07 Troponin, BNP 05/25/17 13:15 B-Natriuretic Peptide 7287.04 H Troponin, BNP 05/25/17 13:15 B-Natriuretic Peptide 7287.04 H Imaging - Results EKG: Report Reviewed (afib irbbb) Problem List - Problems (1) Atrial fibrillation Assessment/Plan: she has well controlled afib rates at present. Hold Eliquis until postop, then restart 2.5 mg bid when surgically stable. She is not a candidate for TV mass resection. No evidence of endocarditis, ID albert negative. Code(s): I48.91 - UNSPECIFIED ATRIAL FIBRILLATION Qualifiers: Atrial fibrillation type: persistent Qualified Code(s): I48.1 - Persistent atrial fibrillation (2) Preop cardiovascular exam Assessment/Plan: She has no cardiac contraindications to EVAR. She is at intermediate risk. No need for further testing preop. Code(s): Z01.810 - ENCOUNTER FOR PREPROCEDURAL CARDIOVASCULAR EXAMINATION
--- NOTE | 2017-05-26 16:11 | CON.PULM ---
Consult Consult Specialty:: Pulmonary Referred by:: NIVIA Reason for Consultation:: H/O LUNG CA - History of Present Illness Chief Complaint: MELENA History of Present Illness: 77yo woman with PMH of Afib (on Eliquis), HTN, COPD, CKD stage 4, diverticulitis, and NSCLC s/p LLL lobectomy on 03/06/17 who presents with increasing weakness for the past month and 2x dark tarry stools over the past 4 days associated with some abdominal discomfort. She also reports two episodes of NBNB emesis over the past 2-3 days. She has chronic constipation for which she takes Senna daily, MOM prn, but often requires self-evacuation.She has never had a colonoscopy or endoscopy. No recent NSAID use, Iron supplements, or pepto bismal. Family history of bone cancer (uncle) only. 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 No: Ascites Hepatobiliary: No: Cirrhosis Renal/: Yes: Renal Failure Reproductive: Yes: Postmenopausal ...: No Heme/Onc: Yes: Anemia Infectious Disease: No: AIDS Psych: No: Addictions Musculoskeletal: No: Bursitis Rheumatology: Yes: Other. No: Fibromyalgia ENT: No: Allergic Rhinitis Endocrine: Yes: Hyperparathyroidism (Hearing loss) - Past Surgical History Past Surgical History: Yes: Thoracotomy - Alcohol/Substance Use Hx Alcohol Use: No - Smoking History Smoking history: Current every day smoker Have you smoked in the past 12 months: Yes Aproximately how many cigarettes per day: 5 If you are a former smoker, when did you quit?: 1 week ago - Social History History of Recent Travel: No Home Medications - Allergies Allergies/Adverse Reactions: Allergies Allergy/AdvReac Type Severity Reaction Status Date / Time No Known Allergies Allergy Verified 05/25/17 11:50 - Home Medications Home Medications: Ambulatory Orders Lorazepam [Ativan] 0.5 mg PO HS 03/07/17 Acetaminophen [Tylenol .Regular Strength -] 650 mg PO Q4H PRN #0 tablet Budesonide/Formeterol Fumarate [SYMBICORT 160/4.5mcg -] 2 puff IH BID #1 inhaler 03/15/17 Diltiazem Cd [Cardizem Cd -] 180 mg PO DAILY #30 cap 03/15/17 Prednisone [Deltasone -] 40 mg PO DAILY #10 tablet 03/15/17 Apixaban [Eliquis] 2.5 mg PO HS 04/28/17 Family Disease History - Family Disease History Family History: Unremarkable Review of Systems - Review of Systems Constitutional: reports: Loss of Appetite. denies: Fever Eyes: denies: Blurred Vision HENT: denies: Difficult Swallowing Neck: denies: Decreased ROM Cardiovascular: denies: Chest Pain Respiratory: reports: SOB on Exertion. denies: Cough, Hemoptysis, Orthopnea, Wheezing Gastrointestinal: denies: Abdominal Pain Genitourinary: denies: Burning Breasts: reports: No Symptoms Reported Musculoskeletal: reports: No Symptoms Integumentary: reports: No Symptoms Neurological: reports: No Symptoms Endocrine: reports: No Symptoms Physical Exam Vital Sings: Vital Signs Temperature 98.6 F 05/26/17 15:00 Pulse Rate 86 05/26/17 15:00 Respiratory Rate 20 05/26/17 15:00 Blood Pressure 120/62 05/26/17 15:00 O2 Sat by Pulse Oximetry (%) 96 05/26/17 02:00 Constitutional: Yes: Calm Eyes: Yes: EOM Intact HENT: Yes: Normocephalic Neck: Yes: Trachea Midline Cardiovascular: Yes: Regular Rate and Rhythm Respiratory: Yes: CTA Bilaterally Gastrointestinal: Yes: Normal Bowel Sounds Extremities: Yes: WNL Edema: No Neurological: Yes: WNL, Alert Labs: CBC, BMP 05/26/17 06:00 05/26/17 06:00 REST REVIEWED Imaging - Results Chest X-ray: Report Reviewed, Image Reviewed Problem List - Problems (1) Abdominal aortic aneurysm (AAA) Code(s): I71.4 - ABDOMINAL AORTIC ANEURYSM, WITHOUT RUPTURE (2) Melena Code(s): K92.1 - MELENA (3) Atrial fibrillation Code(s): I48.91 - UNSPECIFIED ATRIAL FIBRILLATION Qualifiers: Atrial fibrillation type: persistent Qualified Code(s): I48.1 - Persistent atrial fibrillation (4) COPD (chronic obstructive pulmonary disease) Code(s): J44.9 - CHRONIC OBSTRUCTIVE PULMONARY DISEASE, UNSPECIFIED Qualifiers: Emphysema type: centrilobular (5) Chronic renal disease Code(s): N18.9 - CHRONIC KIDNEY DISEASE, UNSPECIFIED Qualifiers: Chronic kidney disease stage: stage 4 (severe) Qualified Code(s): N18.4 - Chronic kidney disease, stage 4 (severe) (6) Constipation Code(s): K59.00 - CONSTIPATION, UNSPECIFIED Assessment/Plan S/P VATS LEFT LOWER LOBECTOMY DUE TO ADENOCA LUNG NO ADJUVANT THERAPY DEEMED NECESSARY VIA ONCOLOGIST COPD NOT IN EXACERBATION AAA ENLARGING/CONSIDERATION FOR REPAIR UNDERWAY NO PULMONARY CONTRAINDICATION TO PROPOSED AAA REPAIR CONTINUE ICS/LABA CHECK CT CHEST O2 PRN WILL FOLLOW Jayla ADHIKARI MD
--- NOTE | 2017-05-26 18:09 | CONSULT ---
Consult Consult Specialty:: Nephrology Reason for Consultation:: CKD - History of Present Illness Chief Complaint: weakness and tarry stools History of Present Illness: Pt is a 77 year old female with pmhx of CKD, a-fib, HTN, COPD, and lung cancer who presents with weakness and dark stools. She also says she has had vomiting. I was called to evaluate her for elevated creatinine. She says she has not had much appetite. She does complain of constipation. She denies nsaid use. She had elevated creatinine yesterday which improved today. - History Source History Provided By: Patient, Medical Record - Past Medical History Cardio/Vascular: Yes: AFIB, Aneurysm, HTN, Mitral Insufficiency Pulmonary: Yes: COPD, Other (LUNG MASS) Gastrointestinal: Yes: GERD Renal/: Yes: Renal Failure ...: No Infectious Disease: No: AIDS Psych: No: Addictions Musculoskeletal: No: Bursitis Rheumatology: Yes: Other. No: Fibromyalgia ENT: No: Allergic Rhinitis Endocrine: Yes: Hyperparathyroidism (Hearing loss) - Past Surgical History Past Surgical History: Yes: Thoracotomy - Alcohol/Substance Use Hx Alcohol Use: No - Smoking History Smoking history: Current every day smoker Have you smoked in the past 12 months: Yes Aproximately how many cigarettes per day: 5 If you are a former smoker, when did you quit?: 1 week ago - Social History History of Recent Travel: No Home Medications - Allergies Allergies/Adverse Reactions: Allergies Allergy/AdvReac Type Severity Reaction Status Date / Time No Known Allergies Allergy Verified 05/25/17 11:50 - Home Medications Home Medications: Ambulatory Orders Lorazepam [Ativan] 0.5 mg PO HS 03/07/17 Acetaminophen [Tylenol .Regular Strength -] 650 mg PO Q4H PRN #0 tablet Budesonide/Formeterol Fumarate [SYMBICORT 160/4.5mcg -] 2 puff IH BID #1 inhaler 03/15/17 Diltiazem Cd [Cardizem Cd -] 180 mg PO DAILY #30 cap 03/15/17 Prednisone [Deltasone -] 40 mg PO DAILY #10 tablet 03/15/17 Apixaban [Eliquis] 2.5 mg PO HS 04/28/17 Family Disease History - Family Disease History Family History: Denies Review of Systems - Review of Systems Constitutional: reports: Malaise Eyes: reports: No Symptoms HENT: reports: No Symptoms Neck: reports: No Symptoms Cardiovascular: reports: Edema, Shortness of Breath Respiratory: reports: Cough, SOB, SOB on Exertion Gastrointestinal: reports: Abdominal Pain, Constipation Genitourinary: reports: No Symptoms Musculoskeletal: reports: No Symptoms Integumentary: reports: No Symptoms Neurological: reports: No Symptoms Endocrine: reports: No Symptoms Hematology/Lymphatic: reports: No Symptoms Physical Exam Vital Signs: Vital Signs Temperature 98.6 F 05/26/17 15:00 Pulse Rate 86 05/26/17 15:00 Respiratory Rate 20 05/26/17 15:00 Blood Pressure 120/62 05/26/17 15:00 O2 Sat by Pulse Oximetry (%) 97 05/26/17 14:00 Constitutional: Yes: Calm Eyes: Yes: Conjunctiva Clear HENT: Yes: Atraumatic Neck: Yes: Supple Cardiovascular: Yes: S1, S2 Respiratory: Yes: On Nasal O2 Gastrointestinal: Yes: Soft Renal/: Yes: WNL Musculoskeletal: Yes: WNL Edema: No Neurological: Yes: Oriented Psychiatric: Yes: Oriented Labs: CBC, BMP 05/26/17 06:00 05/26/17 06:00 Imaging - Results Cat Scan: Report Reviewed Problem List - Problems (1) Abdominal aortic aneurysm (AAA) Code(s): I71.4 - ABDOMINAL AORTIC ANEURYSM, WITHOUT RUPTURE (2) Stool guaiac positive Code(s): R19.5 - OTHER FECAL ABNORMALITIES (3) Atrial fibrillation Code(s): I48.91 - UNSPECIFIED ATRIAL FIBRILLATION Qualifiers: Atrial fibrillation type: persistent Qualified Code(s): I48.1 - Persistent atrial fibrillation (4) COPD (chronic obstructive pulmonary disease) Code(s): J44.9 - CHRONIC OBSTRUCTIVE PULMONARY DISEASE, UNSPECIFIED Qualifiers: Emphysema type: centrilobular (5) Chronic renal disease Code(s): N18.9 - CHRONIC KIDNEY DISEASE, UNSPECIFIED Qualifiers: Chronic kidney disease stage: stage 4 (severe) Qualified Code(s): N18.4 - Chronic kidney disease, stage 4 (severe) (6) Pneumothorax Code(s): J93.9 - PNEUMOTHORAX, UNSPECIFIED Qualifiers: Pneumothorax type: postprocedural Qualified Code(s): J95.811 - Postprocedural pneumothorax (7) Tobacco use Code(s): Z72.0 - TOBACCO USE Assessment/Plan Current Medications Generic Name Dose Route Start Last Admin Trade Name Freq PRN Reason Stop Dose Admin Acetaminophen 650 mg 05/25/17 15:19 05/25/17 22:49 Tylenol - PO 650 mg Q6H PRN Administration FEVER OR PAIN Budesonide/Formoterol Fumarate 1 puff 05/25/17 15:30 05/26/17 10:11 Symbicort 160/4.5mcg - IH 1 inhaler BID ANNA Administration Diltiazem HCl 180 mg 05/26/17 10:00 05/26/17 10:11 Cardizem Cd - PO 180 mg DAILY ANNA Administration Lorazepam 0.5 mg 05/25/17 15:19 05/25/17 22:57 Ativan - PO 0.5 mg TID PRN Administration ANXIETY Prednisone 40 mg 05/26/17 10:00 05/26/17 10:11 Deltasone - PO Not Given DAILY ANNA labs, chart and meds reviewed 1. CKD with acute component 2. AAA 3. lung cancer 4. HTN 5. a-fib 6. chol 7. hydropneumothorax 8. GI bleed Plan - renal function is close to baseline - will repeat labs in am - avoid nephrotoxins - steroids with taper as tolerated - GI follow up - will discuss with vascular surgery, pt is going for AAA repair - cardiology input appreciated - will follow Dr Shearer
[2017-05-26] MEDS: predniSONE 5 MG TABLET (UD) PO SCH (18:27)
--- NOTE | 2017-05-26 20:06 | CON.GI ---
Consult Consult Specialty:: GI Referred by:: Dr Truong Reason for Consultation:: dark stool and anemia - History of Present Illness Chief Complaint: abdominal pain History of Present Illness: 77 F with h/o AF on ac COPD, HTN, Stage 4 CKD, lung ca s/p LLL lobectomy done 2 months ago. Here with c/o fatigue for 1 month and dark stools for 4 days prior to admission. She has a AAA and si scheduled to have endoluminal stenting done this week. She uses senna laxatives regularly. I am called for constipation. She has never had a colonoscopy. 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 No: Fibromyalgia ENT: No: Allergic Rhinitis Endocrine: Yes: Hyperparathyroidism (Hearing loss) - Past Surgical History Past Surgical History: Yes: Thoracotomy - Alcohol/Substance Use Hx Alcohol Use: No - Smoking History Smoking history: Current every day smoker Have you smoked in the past 12 months: Yes Aproximately how many cigarettes per day: 5 If you are a former smoker, when did you quit?: 1 week ago - Social History History of Recent Travel: No Home Medications - Allergies Allergies/Adverse Reactions: Allergies Allergy/AdvReac Type Severity Reaction Status Date / Time No Known Allergies Allergy Verified 05/25/17 11:50 - Home Medications Home Medications: Ambulatory Orders Lorazepam [Ativan] 0.5 mg PO HS 03/07/17 Acetaminophen [Tylenol .Regular Strength -] 650 mg PO Q4H PRN #0 tablet Budesonide/Formeterol Fumarate [SYMBICORT 160/4.5mcg -] 2 puff IH BID #1 inhaler 03/15/17 Diltiazem Cd [Cardizem Cd -] 180 mg PO DAILY #30 cap 03/15/17 Prednisone [Deltasone -] 40 mg PO DAILY #10 tablet 03/15/17 Apixaban [Eliquis] 2.5 mg PO HS 04/28/17 Physical Exam-GI Vital Signs: Vital Signs Temperature 98.3 F 05/26/17 19:05 Pulse Rate 96 H 05/26/17 19:05 Respiratory Rate 18 05/26/17 19:05 Blood Pressure 139/75 05/26/17 19:05 O2 Sat by Pulse Oximetry (%) 97 05/26/17 18:00 Constitutional: Yes: Well Nourished, Calm Neck: Yes: Supple Cardiovascular: Yes: Pulse Irregular Respiratory: Yes: CTA Bilaterally Gastrointestinal Inspection: Yes: WNL ...Auscultate: Yes: Normoactive Bowel Sounds ...Palpate: Yes: Soft, Tenderness (LLQ and RLQ) ...Percussion: Yes: Dullness Labs: CBC, BMP 05/26/17 06:00 05/26/17 06:00 INR, PTT INR 1.08 (0.82-1.09) 05/25/17 14:07 Hepatic Panel Total Bilirubin 0.3 mg/dL (0.2-1.0) 05/26/17 06:00 AST 5 U/L (15-37) L D 05/26/17 06:00 ALT 16 U/L (12-78) 05/26/17 06:00 Alkaline Phosphatase 81 U/L (45-117) 05/26/17 06:00 Albumin 2.7 g/dl (3.4-5.0) L 05/26/17 06:00 Imaging - Results Cat Scan: Image Reviewed (Stool throughout the colon) Assessment/Plan Patient with Hgb 12 and guaiac (+) stool now constipated with stool noted throughout the colon. Recommend enemas and laxatives from above. Poor candidate for procedures in this context Will do colon as opt after she has recuperated from AAA procedure
[2017-05-27 07:56] LABS: ANION GAP 7 (8-16); BLOOD UREA NITROGEN 43 mg/dL (7-18); CHLORIDE 105 mmol/L (98-107); CO2 28 mmol/L (21-32); CREATININE 2.9 mg/dL (0.55-1.02); GLUCOSE,RANDOM 103 mg/dL (74-106); POTASSIUM 5.4 mmol/L (3.5-5.1); SODIUM 140 mmol/L (136-145)
[2017-05-27] MEDS: predniSONE 5 MG TABLET (UD) PO SCH (09:54)
[2017-05-27] MEDS: BUDESONIDE/FORMETEROL FUMARATE 160/4.5 mcg INHALER IH SCH ×2 (09:55→22:06)
--- NOTE | 2017-05-27 10:15 | PN ---
Progress Note, Physician Chief Complaint: AWAKE ALERT STILL CONSTIPATED OOB TO CHAIR - Current Medication List Current Medications: Active Medications Acetaminophen (Tylenol -) 650 mg PO Q6H PRN PRN Reason: FEVER OR PAIN Last Admin: 05/25/17 22:49 Dose: 650 mg Budesonide/Formoterol Fumarate (Symbicort 160/4.5mcg -) 1 puff IH BID [facility] Last Admin: 05/27/17 09:55 Dose: 1 inhaler Diltiazem HCl (Cardizem Cd -) 180 mg PO DAILY [facility] Last Admin: 05/27/17 09:54 Dose: 180 mg Lorazepam (Ativan -) 0.5 mg PO TID PRN PRN Reason: ANXIETY Last Admin: 05/25/17 22:57 Dose: 0.5 mg Prednisone (Deltasone -) 5 mg PO DAILY [facility] Last Admin: 05/27/17 09:54 Dose: 5 mg - Objective Vital Signs: Vital Signs Temperature 98.1 F 05/27/17 06:00 Pulse Rate 89 05/27/17 06:00 Respiratory Rate 18 05/27/17 06:00 Blood Pressure 118/58 05/27/17 06:00 O2 Sat by Pulse Oximetry (%) 98 05/26/17 21:00 Constitutional: Yes: Mild Distress Eyes: Yes: WNL HENT: Yes: WNL Neck: Yes: WNL Cardiovascular: Yes: WNL Respiratory: Yes: On Nasal O2, Poor Air Entry Gastrointestinal: Yes: Distention Genitourinary: Yes: WNL Musculoskeletal: Yes: Muscle Weakness Extremities: Yes: WNL Edema: No Peripheral Pulses WNL: Yes Integumentary: Yes: WNL Wound/Incision: Yes: Clean/Dry Neurological: Yes: WNL ...Motor Strength: WNL Psychiatric: Yes: WNL Labs: CBC, BMP 05/26/17 06:00 05/27/17 06:00 INR, PTT INR 1.08 (0.82-1.09) 05/25/17 14:07 Problem List - Problems (1) Melena Code(s): K92.1 - MELENA (2) Stool guaiac positive Code(s): R19.5 - OTHER FECAL ABNORMALITIES (3) Abdominal aneurysm Code(s): I71.4 - ABDOMINAL AORTIC ANEURYSM, WITHOUT RUPTURE (4) Atrial fibrillation Code(s): I48.91 - UNSPECIFIED ATRIAL FIBRILLATION Qualifiers: Atrial fibrillation type: persistent Qualified Code(s): I48.1 - Persistent atrial fibrillation (5) COPD (chronic obstructive pulmonary disease) Code(s): J44.9 - CHRONIC OBSTRUCTIVE PULMONARY DISEASE, UNSPECIFIED Qualifiers: Emphysema type: centrilobular (6) Chronic renal disease Code(s): N18.9 - CHRONIC KIDNEY DISEASE, UNSPECIFIED Qualifiers: Chronic kidney disease stage: stage 4 (severe) Qualified Code(s): N18.4 - Chronic kidney disease, stage 4 (severe) (7) Constipation Code(s): K59.00 - CONSTIPATION, UNSPECIFIED (8) Lung malignancy Code(s): C34.90 - MALIGNANT NEOPLASM OF UNSP PART OF UNSP BRONCHUS OR LUNG Qualifiers: Laterality: left Assessment/Plan GI EVAL FOR SEVERE CONSTIPATION AND PAIN VASC SX EVAL FOR ANEURYSM D/W DR SANTAMARIA WILL CLEAR MEDICALLY AND OPTIMIZE RENAL FUNCTION RENAL EVAL PAIN CONTROL CHECK LABS CT SCAN SHOWS WORSENING ABD ANEURYSM STOP XARELTO FOR 2 DAYS, THEN START IV HEPARIN IF NEEDED FOR AFIB
--- NOTE | 2017-05-27 12:10 | PN ---
Progress Note (short form) - Note Progress Note: PULMONARY Occasional shortness of breath and nonproductive cough. No fevers. CT chest without any acute findings. Last Vital Signs Temp Pulse Resp BP Pulse Ox 98.1 F 89 18 118/58 98 05/27/17 06:00 05/27/17 06:00 05/27/17 06:00 05/27/17 06:00 05/26/17 21:00 Gen: NAD at rest Heart: RRR Lung: decreased breath sounds at the bases Abd: soft, nontender Ext: no edema CBC, BMP 05/26/17 06:00 05/27/17 06:00 Active Medications Acetaminophen (Tylenol -) 650 mg PO Q6H PRN PRN Reason: FEVER OR PAIN Last Admin: 05/25/17 22:49 Dose: 650 mg Budesonide/Formoterol Fumarate (Symbicort 160/4.5mcg -) 1 puff IH BID [facility] Last Admin: 05/27/17 09:55 Dose: 1 inhaler Diltiazem HCl (Cardizem Cd -) 180 mg PO DAILY [facility] Last Admin: 05/27/17 09:54 Dose: 180 mg Lorazepam (Ativan -) 0.5 mg PO TID PRN PRN Reason: ANXIETY Last Admin: 05/25/17 22:57 Dose: 0.5 mg Prednisone (Deltasone -) 5 mg PO DAILY [facility] Last Admin: 05/27/17 09:54 Dose: 5 mg A/P AAA Lung Ca s/p LLL lobectomy COPD Atrial Fibrillation - continue low dose prednisone - inhaled bronchodilators - will order incentive spirometry - no pulmonary contraindications for planned EVAR - DVT prophylaxis
--- NOTE | 2017-05-27 15:27 | PN ---
Progress Note (short form) - Note Progress Note: Vascular Surgery Recent CT abd/pelvis done with po contrast. No signs of aortoenteric fistula. Cr is coming down. Once cr is stable, will do EVAR. Will plan for early next week. Please optimize. Josef paul DO
[2017-05-27] MEDS ORDERED: SODIUM PHOSPHATE/NA BIPHOS 133 ML ENEMA RC ONE ×2 (16:45→20:45)
--- NOTE | 2017-05-27 16:57 | PN ---
Progress Note (short form) - Note Progress Note: Patient seen and examined c/o constipation. O/E: Constitutional: Yes: Well Nourished, Mild Distress Eyes: Yes: Conjunctiva Clear HENT: Yes: Atraumatic, Normocephalic Neck: Yes: Supple, Trachea Midline Cardiovascular: Yes: Regular Rate and Rhythm Respiratory: Yes: Regular, CTA Bilaterally Gastrointestinal: Yes: Tenderness Musculoskeletal: Yes: WNL Extremities: Yes: WNL Edema: No Last Vital Signs Temp Pulse Resp BP Pulse Ox 98.4 F 83 18 120/47 98 05/27/17 14:27 05/27/17 14:27 05/27/17 14:27 05/27/17 14:27 05/27/17 09:00 CBC, BMP 05/26/17 06:00 05/27/17 06:00 Current Medications Generic Name Dose Route Start Last Admin Trade Name Freq PRN Reason Stop Dose Admin Acetaminophen 650 mg 05/25/17 15:19 05/25/17 22:49 Tylenol - PO 650 mg Q6H PRN Administration FEVER OR PAIN Budesonide/Formoterol Fumarate 1 puff 05/25/17 15:30 05/27/17 09:55 Symbicort 160/4.5mcg - IH 1 inhaler BID ANNA Administration Diltiazem HCl 180 mg 05/26/17 10:00 05/27/17 09:54 Cardizem Cd - PO 180 mg DAILY ANNA Administration Lactulose 20 gm 05/27/17 16:45 Cephulac (Oral Use) PO TID ANNA Lorazepam 0.5 mg 05/25/17 15:19 05/25/17 22:57 Ativan - PO 0.5 mg TID PRN Administration ANXIETY Prednisone 5 mg 05/26/17 18:30 05/27/17 09:54 Deltasone - PO 5 mg DAILY ANNA Administration Sodium Phosphate 133 ml 05/27/17 20:45 Fleet Adult Rectal Enema - RC 05/27/17 20:46 ONCE ONE 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 ( left sided VATS procedure and OSVALDO lobectomy.) AAA Afib on eliquis CKD Severe constipation Stool occult positive Melanotic stools -awaiting AAA repair -eliquis on hold ( for afib )
[2017-05-27] MEDS ORDERED: MINERAL OIL ENEMA 133 ML ENEMA PR ONE ×2 (17:15→21:30)
--- NOTE | 2017-05-27 17:15 | PN ---
Progress Note, Physician History of Present Illness: Pt seen and examined at bedside. She is awake and alert. She complains of constipation. - Current Medication List Current Medications: Active Medications Acetaminophen (Tylenol -) 650 mg PO Q6H PRN PRN Reason: FEVER OR PAIN Last Admin: 05/25/17 22:49 Dose: 650 mg Budesonide/Formoterol Fumarate (Symbicort 160/4.5mcg -) 1 puff IH BID [facility] Last Admin: 05/27/17 09:55 Dose: 1 inhaler Diltiazem HCl (Cardizem Cd -) 180 mg PO DAILY [facility] Last Admin: 05/27/17 09:54 Dose: 180 mg Lactulose (Cephulac (Oral Use)) 20 gm PO TID ANNA Lorazepam (Ativan -) 0.5 mg PO TID PRN PRN Reason: ANXIETY Last Admin: 05/25/17 22:57 Dose: 0.5 mg Prednisone (Deltasone -) 5 mg PO DAILY [facility] Last Admin: 05/27/17 09:54 Dose: 5 mg Sodium Phosphate (Fleet Adult Rectal Enema -) 133 ml RC ONCE ONE Stop: 05/27/17 20:46 - Objective Vital Signs: Vital Signs Temperature 98.4 F 05/27/17 14:27 Pulse Rate 83 05/27/17 14:27 Respiratory Rate 18 05/27/17 14:27 Blood Pressure 120/47 05/27/17 14:27 O2 Sat by Pulse Oximetry (%) 98 05/27/17 09:00 Constitutional: Yes: Calm Eyes: Yes: Conjunctiva Clear HENT: Yes: Atraumatic Neck: Yes: Supple Cardiovascular: Yes: S1, S2 Respiratory: Yes: Regular, CTA Bilaterally Gastrointestinal: Yes: Soft Genitourinary: Yes: WNL Musculoskeletal: Yes: WNL Edema: No Neurological: Yes: Oriented Psychiatric: Yes: Oriented Labs: CBC, BMP 05/26/17 06:00 05/27/17 06:00 INR, PTT INR 1.08 (0.82-1.09) 05/25/17 14:07 Problem List - Problems (1) Abdominal aortic aneurysm (AAA) Code(s): I71.4 - ABDOMINAL AORTIC ANEURYSM, WITHOUT RUPTURE (2) Stool guaiac positive Code(s): R19.5 - OTHER FECAL ABNORMALITIES (3) Atrial fibrillation Code(s): I48.91 - UNSPECIFIED ATRIAL FIBRILLATION Qualifiers: Atrial fibrillation type: persistent Qualified Code(s): I48.1 - Persistent atrial fibrillation (4) COPD (chronic obstructive pulmonary disease) Code(s): J44.9 - CHRONIC OBSTRUCTIVE PULMONARY DISEASE, UNSPECIFIED Qualifiers: Emphysema type: centrilobular (5) Chronic renal disease Code(s): N18.9 - CHRONIC KIDNEY DISEASE, UNSPECIFIED Qualifiers: Chronic kidney disease stage: stage 4 (severe) Qualified Code(s): N18.4 - Chronic kidney disease, stage 4 (severe) (6) Pneumothorax Code(s): J93.9 - PNEUMOTHORAX, UNSPECIFIED Qualifiers: Pneumothorax type: postprocedural Qualified Code(s): J95.811 - Postprocedural pneumothorax (7) Tobacco use Code(s): Z72.0 - TOBACCO USE Assessment/Plan Current Medications Generic Name Dose Route Start Last Admin Trade Name Freq PRN Reason Stop Dose Admin Acetaminophen 650 mg 05/25/17 15:19 05/25/17 22:49 Tylenol - PO 650 mg Q6H PRN Administration FEVER OR PAIN Budesonide/Formoterol Fumarate 1 puff 05/25/17 15:30 05/27/17 09:55 Symbicort 160/4.5mcg - IH 1 inhaler BID [facility] Administration Diltiazem HCl 180 mg 05/26/17 10:00 05/27/17 09:54 Cardizem Cd - PO 180 mg DAILY [facility] Administration Lactulose 20 gm 05/27/17 16:45 Cephulac (Oral Use) PO TID [facility] Lorazepam 0.5 mg 05/25/17 15:19 05/25/17 22:57 Ativan - PO 0.5 mg TID PRN Administration ANXIETY Prednisone 5 mg 05/26/17 18:30 05/27/17 09:54 Deltasone - PO 5 mg DAILY [facility] Administration Sodium Phosphate 133 ml 05/27/17 20:45 Fleet Adult Rectal Enema - RC 05/27/17 20:46 ONCE ONE 1. CKD with acute component 2. AAA 3. lung cancer 4. HTN 5. a-fib 6. chol 7. hydropneumothorax 8. GI bleed Plan - renal function is improved - avoid fleet enemas - will start colace as well - pt is going for AAA repair, likely next week - cardiology input appreciated - will follow Dr Shearer
[2017-05-27] MEDS: LACTULOSE 20 GM/30 ML UDC (FOR ORAL USE ONLY) PO SCH ×2 (18:02→22:07)
[2017-05-27] MEDS: DOCUSATE SODIUM 100 MG CAPSULE (FP) PO SCH ×2 (18:02→22:07)
[2017-05-28] MEDS ORDERED: HEPARIN NA (PORCINE) 5,000 UNITS/ML 1ML VIAL IVPUSH PRN ×2 (06:19)
[2017-05-28] MEDS ORDERED: HEPARIN - 25,000 UNIT in SODIUM CHLORIDE 495 ML IV SCH (06:30)
[2017-05-28] MEDS: HEPARIN INFUSION - 25,000 UNITS/500 ML INFUS.BAG IVPB SCH (07:21)
[2017-05-28] MEDS: predniSONE 5 MG TABLET (UD) PO SCH (09:59)
[2017-05-28] MEDS: LACTULOSE 20 GM/30 ML UDC (FOR ORAL USE ONLY) PO SCH ×3 (09:59→22:31)
[2017-05-28] MEDS: DOCUSATE SODIUM 100 MG CAPSULE (FP) PO SCH ×2 (09:59→22:31)
[2017-05-28] MEDS: BUDESONIDE/FORMETEROL FUMARATE 160/4.5 mcg INHALER IH SCH ×2 (10:01→22:30)
--- NOTE | 2017-05-28 11:17 | PN ---
Progress Note, Physician Chief Complaint: AWAKE ALERT FEELING BETTER AWAITING ANEURYSM REPAIR - Current Medication List Current Medications: Active Medications Acetaminophen (Tylenol -) 650 mg PO Q6H PRN PRN Reason: FEVER OR PAIN Last Admin: 05/25/17 22:49 Dose: 650 mg Budesonide/Formoterol Fumarate (Symbicort 160/4.5mcg -) 1 puff IH BID [facility] Last Admin: 05/28/17 10:01 Dose: 1 inhaler Diltiazem HCl (Cardizem Cd -) 180 mg PO DAILY [facility] Last Admin: 05/28/17 09:59 Dose: 180 mg Docusate Sodium (Colace -) 100 mg PO BID [facility] Last Admin: 05/28/17 09:59 Dose: 100 mg Heparin Sodium (Porcine) (Heparin -) 1,000 unit IVPUSH PRN PRN PRN Reason: Heparin Heparin Sodium (Porcine) (Heparin -) 5,000 unit IVPUSH PRN PRN PRN Reason: Heparin Heparin Sodium/Dextrose (Heparin Infusion -) 25,000 units in 500 mls @ 16 mls/ hr IVPB TITR [facility]; 800 UNITS/HR PRN Reason: Protocol Last Admin: 05/28/17 07:21 Dose: 800 units/hr, 16 mls/hr Lactulose (Cephulac (Oral Use)) 20 gm PO TID [facility] Last Admin: 05/28/17 09:59 Dose: 20 gm Lorazepam (Ativan -) 0.5 mg PO TID PRN PRN Reason: ANXIETY Last Admin: 05/25/17 22:57 Dose: 0.5 mg Prednisone (Deltasone -) 5 mg PO DAILY [facility] Last Admin: 05/28/17 09:59 Dose: 5 mg - Objective Vital Signs: Vital Signs Temperature 98.3 F 05/28/17 09:00 Pulse Rate 97 H 05/28/17 09:00 Respiratory Rate 20 05/28/17 09:00 Blood Pressure 128/77 05/28/17 09:00 O2 Sat by Pulse Oximetry (%) 97 05/28/17 09:00 Constitutional: Yes: Mild Distress Eyes: Yes: WNL HENT: Yes: WNL Neck: Yes: WNL Cardiovascular: Yes: Pulse Irregular Respiratory: Yes: On Nasal O2 Gastrointestinal: Yes: WNL Genitourinary: Yes: WNL Musculoskeletal: Yes: WNL Extremities: Yes: WNL Edema: No Peripheral Pulses WNL: Yes Integumentary: Yes: WNL Wound/Incision: Yes: Clean/Dry Neurological: Yes: WNL ...Motor Strength: WNL Psychiatric: Yes: WNL Labs: CBC, BMP 05/26/17 06:00 05/27/17 06:00 INR, PTT INR 1.08 (0.82-1.09) 05/25/17 14:07 Problem List - Problems (1) Melena Code(s): K92.1 - MELENA (2) Stool guaiac positive Code(s): R19.5 - OTHER FECAL ABNORMALITIES (3) Abdominal aneurysm Code(s): I71.4 - ABDOMINAL AORTIC ANEURYSM, WITHOUT RUPTURE (4) Atrial fibrillation Code(s): I48.91 - UNSPECIFIED ATRIAL FIBRILLATION Qualifiers: Atrial fibrillation type: persistent Qualified Code(s): I48.1 - Persistent atrial fibrillation (5) COPD (chronic obstructive pulmonary disease) Code(s): J44.9 - CHRONIC OBSTRUCTIVE PULMONARY DISEASE, UNSPECIFIED Qualifiers: Emphysema type: centrilobular (6) Chronic renal disease Code(s): N18.9 - CHRONIC KIDNEY DISEASE, UNSPECIFIED Qualifiers: Chronic kidney disease stage: stage 4 (severe) Qualified Code(s): N18.4 - Chronic kidney disease, stage 4 (severe) (7) Constipation Code(s): K59.00 - CONSTIPATION, UNSPECIFIED (8) Lung malignancy Code(s): C34.90 - MALIGNANT NEOPLASM OF UNSP PART OF UNSP BRONCHUS OR LUNG Qualifiers: Laterality: left Assessment/Plan GI EVAL FOR SEVERE CONSTIPATION AND PAIN VASC SX EVAL FOR ANEURYSM D/W DR SANTAMARIA WILL CLEAR MEDICALLY AND OPTIMIZE RENAL FUNCTION RENAL EVAL PAIN CONTROL CHECK LABS CT SCAN SHOWS WORSENING ABD ANEURYSM STOP XARELTO AND HEPARIN IV STARTED FOR AFIB
--- NOTE | 2017-05-28 11:30 | PN ---
Progress Note (short form) - Note Progress Note: Patient seen and examined one BM today. walking around. O/E: Constitutional: Yes: Well Nourished, Mild Distress Eyes: Yes: Conjunctiva Clear HENT: Yes: Atraumatic, Normocephalic Neck: Yes: Supple, Trachea Midline Cardiovascular: Yes: Regular Rate and Rhythm Respiratory: Yes: Regular, CTA Bilaterally Gastrointestinal: Yes: Tenderness Musculoskeletal: Yes: WNL Extremities: Yes: WNL Edema: No Last Vital Signs Temp Pulse Resp BP Pulse Ox 98.3 F 97 H 20 128/77 97 05/28/17 09:00 05/28/17 09:00 05/28/17 09:00 05/28/17 09:00 05/28/17 09:00 CBC, BMP 05/26/17 06:00 05/27/17 06:00 Current Medications Generic Name Dose Route Start Last Admin Trade Name Freq PRN Reason Stop Dose Admin Acetaminophen 650 mg 05/25/17 15:19 05/25/17 22:49 Tylenol - PO 650 mg Q6H PRN Administration FEVER OR PAIN Budesonide/Formoterol Fumarate 1 puff 05/25/17 15:30 05/28/17 10:01 Symbicort 160/4.5mcg - IH 1 inhaler BID ANNA Administration Diltiazem HCl 180 mg 05/26/17 10:00 05/28/17 09:59 Cardizem Cd - PO 180 mg DAILY ANNA Administration Docusate Sodium 100 mg 05/27/17 17:15 05/28/17 09:59 Colace - PO 100 mg BID ANNA Administration Heparin Sodium (Porcine) 1,000 unit 05/28/17 06:19 Heparin - IVPUSH PRN PRN Heparin Heparin Sodium (Porcine) 5,000 unit 05/28/17 06:19 Heparin - IVPUSH PRN PRN Heparin Heparin Sodium/Dextrose 25,000 units in 500 mls @ 16 mls/hr 05/28/17 07:00 07:21 Heparin Infusion - IVPB 800 units/hr TITR ANNA 16 mls/hr Protocol Administration 800 UNITS/HR Lactulose 20 gm 05/27/17 16:45 05/28/17 09:59 Cephulac (Oral Use) PO 20 gm TID ANNA Administration Lorazepam 0.5 mg 05/25/17 15:19 05/25/17 22:57 Ativan - PO 0.5 mg TID PRN Administration ANXIETY Prednisone 5 mg 05/26/17 18:30 05/28/17 09:59 Deltasone - PO 5 mg DAILY ANNA Administration 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 ( left sided VATS procedure and OSVALDO lobectomy.) AAA Afib on eliquis CKD Stool occult positive Melanotic stools constipation getting better awaiting AAA repair on heparin drip for A fib
[2017-05-28 12:40] LABS: ANION GAP 10 (8-16); BLOOD UREA NITROGEN 42 mg/dL (7-18); CALCIUM 8.5 mg/dL (8.5-10.1); CHLORIDE 103 mmol/L (98-107); CO2 24 mmol/L (21-32); CREATININE 2.7 mg/dL (0.55-1.02); GLUCOSE,RANDOM 116 mg/dL (74-106); SODIUM 137 mmol/L (136-145)
--- NOTE | 2017-05-28 14:50 | PN ---
Progress Note, Physician Chief Complaint: no complaints History of Present Illness: 77 year old female with a pmhx of htn, hld, ckd stage 4, afib on apixaban ( intolerant to Xarelto), Lung CA s/p recent L VATS and lobectomy complicated by hemothorax s/p drainage, enlarging AAA who is awaiting EVAR. No chest pain, orthopnea, pnd or edema. Exercise tolerance is poor. Echo 02/25/17 nlef mod to severe MR/TR complex TV mass ID workup was negative. - Current Medication List Current Medications: Active Medications Acetaminophen (Tylenol -) 650 mg PO Q6H PRN PRN Reason: FEVER OR PAIN Last Admin: 05/25/17 22:49 Dose: 650 mg Budesonide/Formoterol Fumarate (Symbicort 160/4.5mcg -) 1 puff IH BID [facility] Last Admin: 05/28/17 10:01 Dose: 1 inhaler Diltiazem HCl (Cardizem Cd -) 180 mg PO DAILY [facility] Last Admin: 05/28/17 09:59 Dose: 180 mg Docusate Sodium (Colace -) 100 mg PO BID [facility] Last Admin: 05/28/17 09:59 Dose: 100 mg Heparin Sodium (Porcine) (Heparin -) 1,000 unit IVPUSH PRN PRN PRN Reason: Heparin Heparin Sodium (Porcine) (Heparin -) 5,000 unit IVPUSH PRN PRN PRN Reason: Heparin Heparin Sodium/Dextrose (Heparin Infusion -) 25,000 units in 500 mls @ 16 mls/ hr IVPB TITR [facility]; 800 UNITS/HR PRN Reason: Protocol Last Admin: 05/28/17 07:21 Dose: 800 units/hr, 16 mls/hr Lactulose (Cephulac (Oral Use)) 20 gm PO TID [facility] Last Admin: 05/28/17 09:59 Dose: 20 gm Lorazepam (Ativan -) 0.5 mg PO TID PRN PRN Reason: ANXIETY Last Admin: 05/25/17 22:57 Dose: 0.5 mg Prednisone (Deltasone -) 5 mg PO DAILY [facility] Last Admin: 05/28/17 09:59 Dose: 5 mg - Objective Vital Signs: Vital Signs Temperature 98.3 F 05/28/17 09:00 Pulse Rate 97 H 05/28/17 09:00 Respiratory Rate 20 05/28/17 09:00 Blood Pressure 128/77 05/28/17 09:00 O2 Sat by Pulse Oximetry (%) 97 05/28/17 09:00 Constitutional: Yes: No Distress, Calm Eyes: Yes: Conjunctiva Clear, EOM Intact HENT: Yes: Normocephalic Neck: Yes: Supple, Trachea Midline Cardiovascular: Yes: Regular Rate and Rhythm Respiratory: Yes: CTA Bilaterally Gastrointestinal: Yes: Normal Bowel Sounds, Soft Musculoskeletal: Yes: WNL Extremities: Yes: WNL Edema: No Peripheral Pulses WNL: Yes Labs: CBC, BMP 05/26/17 06:00 05/28/17 12:06 INR, PTT INR 1.08 (0.82-1.09) 05/25/17 14:07 Problem List - Problems (1) Atrial fibrillation Assessment/Plan: she has well controlled afib rates at present. Hold Eliquis until postop, then restart 2.5 mg bid when surgically stable. She is not a candidate for TV mass resection. No evidence of endocarditis, ID albert negative. Code(s): I48.91 - UNSPECIFIED ATRIAL FIBRILLATION Qualifiers: Atrial fibrillation type: persistent Qualified Code(s): I48.1 - Persistent atrial fibrillation (2) Preop cardiovascular exam Assessment/Plan: She has no cardiac contraindications to EVAR. She is at intermediate risk. No need for further testing preop. Please call us postop for follow up. Code(s): Z01.810 - ENCOUNTER FOR PREPROCEDURAL CARDIOVASCULAR EXAMINATION
--- NOTE | 2017-05-28 15:09 | PN ---
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 - Current Medication List Current Medications: Active Medications Acetaminophen (Tylenol -) 650 mg PO Q6H PRN PRN Reason: FEVER OR PAIN Last Admin: 05/25/17 22:49 Dose: 650 mg Budesonide/Formoterol Fumarate (Symbicort 160/4.5mcg -) 1 puff IH BID [facility] Last Admin: 05/28/17 10:01 Dose: 1 inhaler Diltiazem HCl (Cardizem Cd -) 180 mg PO DAILY [facility] Last Admin: 05/28/17 09:59 Dose: 180 mg Docusate Sodium (Colace -) 100 mg PO BID [facility] Last Admin: 05/28/17 09:59 Dose: 100 mg Heparin Sodium (Porcine) (Heparin -) 1,000 unit IVPUSH PRN PRN PRN Reason: Heparin Heparin Sodium (Porcine) (Heparin -) 5,000 unit IVPUSH PRN PRN PRN Reason: Heparin Heparin Sodium/Dextrose (Heparin Infusion -) 25,000 units in 500 mls @ 16 mls/ hr IVPB TITR [facility]; 800 UNITS/HR PRN Reason: Protocol Last Admin: 05/28/17 07:21 Dose: 800 units/hr, 16 mls/hr Lactulose (Cephulac (Oral Use)) 20 gm PO TID [facility] Last Admin: 05/28/17 09:59 Dose: 20 gm Lorazepam (Ativan -) 0.5 mg PO TID PRN PRN Reason: ANXIETY Last Admin: 05/25/17 22:57 Dose: 0.5 mg Prednisone (Deltasone -) 5 mg PO DAILY [facility] Last Admin: 05/28/17 09:59 Dose: 5 mg - Objective Vital Signs: Vital Signs Temperature 98.6 F 05/28/17 15:00 Pulse Rate 93 H 05/28/17 15:00 Respiratory Rate 20 05/28/17 15:00 Blood Pressure 124/70 05/28/17 15:00 O2 Sat by Pulse Oximetry (%) 97 05/28/17 09:00 Constitutional: Yes: Calm, Thin Eyes: Yes: WNL HENT: Yes: WNL Neck: Yes: WNL Cardiovascular: Yes: Pulse Irregular, S1, S2 Respiratory: Yes: Wheezes (FEW SCATTERED WHEEZES) Gastrointestinal: Yes: Normal Bowel Sounds, Soft Extremities: Yes: WNL Edema: No Labs: CBC, BMP 05/28/17 12:06 INR, PTT INR 1.08 (0.82-1.09) 05/25/17 14:07 Assessment/Plan A/P AAA Lung Ca s/p LLL lobectomy COPD Atrial Fibrillation - continue low dose prednisone - inhaled bronchodilators - incentive spirometry - no pulmonary contraindications for planned EVAR - DVT prophylaxis DR CRUZ
[2017-05-28] MEDS: ACETAMINOPHEN 325 MG TABLET (FP) PO PRN (15:10)
--- NOTE | 2017-05-28 17:28 | PN ---
Progress Note, Physician History of Present Illness: Pt seen and examined at bedside. She is awake and alert. She had a bowel movement. - Current Medication List Current Medications: Active Medications Acetaminophen (Tylenol -) 650 mg PO Q6H PRN PRN Reason: FEVER OR PAIN Last Admin: 05/28/17 15:10 Dose: 650 mg Budesonide/Formoterol Fumarate (Symbicort 160/4.5mcg -) 1 puff IH BID [facility] Last Admin: 05/28/17 10:01 Dose: 1 inhaler Diltiazem HCl (Cardizem Cd -) 180 mg PO DAILY [facility] Last Admin: 05/28/17 09:59 Dose: 180 mg Docusate Sodium (Colace -) 100 mg PO BID [facility] Last Admin: 05/28/17 09:59 Dose: 100 mg Heparin Sodium (Porcine) (Heparin -) 1,000 unit IVPUSH PRN PRN PRN Reason: Heparin Heparin Sodium (Porcine) (Heparin -) 5,000 unit IVPUSH PRN PRN PRN Reason: Heparin Last Admin: 05/28/17 15:17 Dose: 5,000 unit Heparin Sodium/Dextrose (Heparin Infusion -) 25,000 units in 500 mls @ 16 mls/ hr IVPB TITR [facility]; 800 UNITS/HR PRN Reason: Protocol Last Titration: 05/28/17 15:11 Dose: 950 units/hr, 19 mls/hr Lactulose (Cephulac (Oral Use)) 20 gm PO TID [facility] Last Admin: 05/28/17 15:10 Dose: 20 gm Lorazepam (Ativan -) 0.5 mg PO TID PRN PRN Reason: ANXIETY Last Admin: 05/25/17 22:57 Dose: 0.5 mg Prednisone (Deltasone -) 5 mg PO DAILY [facility] Last Admin: 05/28/17 09:59 Dose: 5 mg - Objective Vital Signs: Vital Signs Temperature 98.6 F 05/28/17 15:00 Pulse Rate 93 H 05/28/17 15:00 Respiratory Rate 20 05/28/17 15:00 Blood Pressure 124/70 05/28/17 15:00 O2 Sat by Pulse Oximetry (%) 97 05/28/17 09:00 Constitutional: Yes: Calm Eyes: Yes: Conjunctiva Clear HENT: Yes: Atraumatic Neck: Yes: Supple Cardiovascular: Yes: S1, S2 Respiratory: Yes: CTA Bilaterally Gastrointestinal: Yes: Normal Bowel Sounds, Soft Genitourinary: Yes: WNL Musculoskeletal: Yes: WNL Edema: No Neurological: Yes: Oriented Psychiatric: Yes: Oriented Labs: CBC, BMP 05/26/17 06:00 05/28/17 12:06 INR, PTT INR 1.08 (0.82-1.09) 05/25/17 14:07 Problem List - Problems (1) Abdominal aortic aneurysm (AAA) Code(s): I71.4 - ABDOMINAL AORTIC ANEURYSM, WITHOUT RUPTURE (2) Stool guaiac positive Code(s): R19.5 - OTHER FECAL ABNORMALITIES (3) Atrial fibrillation Code(s): I48.91 - UNSPECIFIED ATRIAL FIBRILLATION Qualifiers: Atrial fibrillation type: persistent Qualified Code(s): I48.1 - Persistent atrial fibrillation (4) COPD (chronic obstructive pulmonary disease) Code(s): J44.9 - CHRONIC OBSTRUCTIVE PULMONARY DISEASE, UNSPECIFIED Qualifiers: Emphysema type: centrilobular (5) Chronic renal disease Code(s): N18.9 - CHRONIC KIDNEY DISEASE, UNSPECIFIED Qualifiers: Chronic kidney disease stage: stage 4 (severe) Qualified Code(s): N18.4 - Chronic kidney disease, stage 4 (severe) (6) Pneumothorax Code(s): J93.9 - PNEUMOTHORAX, UNSPECIFIED Qualifiers: Pneumothorax type: postprocedural Qualified Code(s): J95.811 - Postprocedural pneumothorax (7) Tobacco use Code(s): Z72.0 - TOBACCO USE Assessment/Plan Current Medications Generic Name Dose Route Start Last Admin Trade Name Freq PRN Reason Stop Dose Admin Acetaminophen 650 mg 05/25/17 15:19 05/28/17 15:10 Tylenol - PO 650 mg Q6H PRN Administration FEVER OR PAIN Budesonide/Formoterol Fumarate 1 puff 05/25/17 15:30 05/28/17 10:01 Symbicort 160/4.5mcg - IH 1 inhaler BID ANNA Administration Diltiazem HCl 180 mg 05/26/17 10:00 05/28/17 09:59 Cardizem Cd - PO 180 mg DAILY [facility] Administration Docusate Sodium 100 mg 05/27/17 17:15 05/28/17 09:59 Colace - PO 100 mg BID ANNA Administration Heparin Sodium (Porcine) 1,000 unit 05/28/17 06:19 Heparin - IVPUSH PRN PRN Heparin Heparin Sodium (Porcine) 5,000 unit 05/28/17 06:19 05/28/17 15:17 Heparin - IVPUSH 5,000 unit PRN PRN Administration Heparin Heparin Sodium/Dextrose 25,000 units in 500 mls @ 16 mls/hr 05/28/17 07:00 15:11 Heparin Infusion - IVPB 950 units/hr TITR [facility] 19 mls/hr Protocol Titration 800 UNITS/HR Lactulose 20 gm 05/27/17 16:45 05/28/17 15:10 Cephulac (Oral Use) PO 20 gm TID ANNA Administration Lorazepam 0.5 mg 05/25/17 15:19 05/25/17 22:57 Ativan - PO 0.5 mg TID PRN Administration ANXIETY Prednisone 5 mg 05/26/17 18:30 05/28/17 09:59 Deltasone - PO 5 mg DAILY [facility] Administration 1. CKD with acute component 2. AAA 3. lung cancer 4. HTN 5. a-fib 6. chol 7. hydropneumothorax 8. GI bleed Plan - creatinine continues to improve, she is at her baseline - endovascular repair next week - should be prepped for contrast - avoid fleet enemas - no acute change in management - will follow Dr Shearer
[2017-05-29] MEDS: LACTULOSE 20 GM/30 ML UDC (FOR ORAL USE ONLY) PO SCH ×3 (07:58→23:05)
[2017-05-29] MEDS: HEPARIN INFUSION - 25,000 UNITS/500 ML INFUS.BAG IVPB SCH ×2 (08:41→09:00)
[2017-05-29] MEDS: BUDESONIDE/FORMETEROL FUMARATE 160/4.5 mcg INHALER IH SCH ×2 (09:41→23:04)
[2017-05-29] MEDS: predniSONE 5 MG TABLET (UD) PO SCH (09:42)
[2017-05-29] MEDS: DOCUSATE SODIUM 100 MG CAPSULE (FP) PO SCH ×2 (09:42→23:05)
--- NOTE | 2017-05-29 11:32 | PN ---
Progress Note (short form) - Note Progress Note: RENAL Pt is awake and alert well known to me from office visits Last Vital Signs Temp Pulse Resp BP Pulse Ox 98.2 F 100 H 20 116/65 98 05/29/17 09:45 05/29/17 09:45 05/29/17 09:45 05/29/17 09:45 05/29/17 09:00 lungs has bilat rhonchi cvs s1s2 rr abd soft, ext no edema neuro a+ox3 CBC, BMP 05/26/17 06:00 05/28/17 12:06 Current Medications Generic Name Dose Route Start Last Admin Trade Name Freq PRN Reason Stop Dose Admin Acetaminophen 650 mg 05/25/17 15:19 05/28/17 15:10 Tylenol - PO 650 mg Q6H PRN Administration FEVER OR PAIN Budesonide/Formoterol Fumarate 1 puff 05/25/17 15:30 05/29/17 09:41 Symbicort 160/4.5mcg - IH 1 inhaler BID ANNA Administration Diltiazem HCl 180 mg 05/26/17 10:00 05/29/17 09:42 Cardizem Cd - PO 180 mg DAILY ANNA Administration Docusate Sodium 100 mg 05/27/17 17:15 05/29/17 09:42 Colace - PO 100 mg BID ANNA Administration Heparin Sodium (Porcine) 1,000 unit 05/28/17 06:19 05/29/17 09:00 Heparin - IVPUSH 1,000 unit PRN PRN Administration Heparin Heparin Sodium (Porcine) 5,000 unit 05/28/17 06:19 05/28/17 15:17 Heparin - IVPUSH 5,000 unit PRN PRN Administration Heparin Heparin Sodium/Dextrose 25,000 units in 500 mls @ 16 mls/hr 05/28/17 07:00 09:00 Heparin Infusion - IVPB 1,050 units/hr TITR ANNA 21 mls/hr Protocol Administration 800 UNITS/HR Lactulose 20 gm 05/27/17 16:45 05/29/17 07:58 Cephulac (Oral Use) PO 20 gm TID ANNA Administration Lorazepam 0.5 mg 05/25/17 15:19 05/25/17 22:57 Ativan - PO 0.5 mg TID PRN Administration ANXIETY Prednisone 5 mg 05/26/17 18:30 12/02/17 09:42 Deltasone - PO 5 mg DAILY ANNA Administration IMPRESSION 1. CKD with acute component 2. AAA 3. lung cancer 4. HTN 5. a-fib 6. chol 7. hydropneumothorax 8. GI bleed Plan - creatinine continues to improve, she is at her baseline - endovascular repair next week - should be prepped for contrast - avoid fleet enemas - no acute change in management -strongly recommended against smoking but she insists on doing it MV
--- NOTE | 2017-05-29 12:54 | PN ---
Progress Note, Physician History of Present Illness: AWAEK ALERT STILL C/O CONSTIPATION - Current Medication List Current Medications: Active Medications Acetaminophen (Tylenol -) 650 mg PO Q6H PRN PRN Reason: FEVER OR PAIN Last Admin: 05/28/17 15:10 Dose: 650 mg Budesonide/Formoterol Fumarate (Symbicort 160/4.5mcg -) 1 puff IH BID [facility] Last Admin: 05/29/17 09:41 Dose: 1 inhaler Diltiazem HCl (Cardizem Cd -) 180 mg PO DAILY [facility] Last Admin: 05/29/17 09:42 Dose: 180 mg Docusate Sodium (Colace -) 100 mg PO BID [facility] Last Admin: 05/29/17 09:42 Dose: 100 mg Heparin Sodium (Porcine) (Heparin -) 1,000 unit IVPUSH PRN PRN PRN Reason: Heparin Last Admin: 05/29/17 09:00 Dose: 1,000 unit Heparin Sodium (Porcine) (Heparin -) 5,000 unit IVPUSH PRN PRN PRN Reason: Heparin Last Admin: 05/28/17 15:17 Dose: 5,000 unit Heparin Sodium/Dextrose (Heparin Infusion -) 25,000 units in 500 mls @ 16 mls/ hr IVPB TITR ANNA; 800 UNITS/HR PRN Reason: Protocol Last Admin: 05/29/17 09:00 Dose: 1,050 units/hr, 21 mls/hr Lactulose (Cephulac (Oral Use)) 20 gm PO TID [facility] Last Admin: 05/29/17 07:58 Dose: 20 gm Lorazepam (Ativan -) 0.5 mg PO TID PRN PRN Reason: ANXIETY Last Admin: 05/25/17 22:57 Dose: 0.5 mg Prednisone (Deltasone -) 5 mg PO DAILY [facility] Last Admin: 05/29/17 09:42 Dose: 5 mg - Objective Vital Signs: Vital Signs Temperature 98.2 F 05/29/17 09:45 Pulse Rate 100 H 05/29/17 09:45 Respiratory Rate 20 05/29/17 09:45 Blood Pressure 116/65 05/29/17 09:45 O2 Sat by Pulse Oximetry (%) 98 05/29/17 09:00 Constitutional: Yes: Mild Distress Eyes: Yes: WNL HENT: Yes: WNL Neck: Yes: WNL Cardiovascular: Yes: Pulse Irregular Respiratory: Yes: Cough, Poor Air Entry, SOB Gastrointestinal: Yes: Distention, Tenderness Genitourinary: Yes: WNL Musculoskeletal: Yes: WNL Extremities: Yes: WNL Edema: No Integumentary: Yes: WNL Wound/Incision: Yes: Clean/Dry Neurological: Yes: WNL ...Motor Strength: WNL Psychiatric: Yes: WNL Labs: CBC, BMP 05/26/17 06:00 05/28/17 12:06 INR, PTT INR 1.08 (0.82-1.09) 05/25/17 14:07 Problem List - Problems (1) Melena Code(s): K92.1 - MELENA (2) Stool guaiac positive Code(s): R19.5 - OTHER FECAL ABNORMALITIES (3) Abdominal aneurysm Code(s): I71.4 - ABDOMINAL AORTIC ANEURYSM, WITHOUT RUPTURE (4) Atrial fibrillation Code(s): I48.91 - UNSPECIFIED ATRIAL FIBRILLATION Qualifiers: Atrial fibrillation type: persistent Qualified Code(s): I48.1 - Persistent atrial fibrillation (5) COPD (chronic obstructive pulmonary disease) Code(s): J44.9 - CHRONIC OBSTRUCTIVE PULMONARY DISEASE, UNSPECIFIED Qualifiers: Emphysema type: centrilobular (6) Chronic renal disease Code(s): N18.9 - CHRONIC KIDNEY DISEASE, UNSPECIFIED Qualifiers: Chronic kidney disease stage: stage 4 (severe) Qualified Code(s): N18.4 - Chronic kidney disease, stage 4 (severe) (7) Constipation Code(s): K59.00 - CONSTIPATION, UNSPECIFIED (8) 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
--- NOTE | 2017-05-29 14:36 | PN ---
Progress Note, Physician History of Present Illness: pulmonary alert,nad,c/o constipation. - Current Medication List Current Medications: Active Medications Acetaminophen (Tylenol -) 650 mg PO Q6H PRN PRN Reason: FEVER OR PAIN Last Admin: 05/28/17 15:10 Dose: 650 mg Budesonide/Formoterol Fumarate (Symbicort 160/4.5mcg -) 1 puff IH BID [facility] Last Admin: 05/29/17 09:41 Dose: 1 inhaler Diltiazem HCl (Cardizem Cd -) 180 mg PO DAILY [facility] Last Admin: 05/29/17 09:42 Dose: 180 mg Docusate Sodium (Colace -) 100 mg PO BID [facility] Last Admin: 05/29/17 09:42 Dose: 100 mg Heparin Sodium (Porcine) (Heparin -) 1,000 unit IVPUSH PRN PRN PRN Reason: Heparin Last Admin: 05/29/17 09:00 Dose: 1,000 unit Heparin Sodium (Porcine) (Heparin -) 5,000 unit IVPUSH PRN PRN PRN Reason: Heparin Last Admin: 05/28/17 15:17 Dose: 5,000 unit Heparin Sodium/Dextrose (Heparin Infusion -) 25,000 units in 500 mls @ 16 mls/ hr IVPB TITR ANNA; 800 UNITS/HR PRN Reason: Protocol Last Admin: 05/29/17 09:00 Dose: 1,050 units/hr, 21 mls/hr Lactulose (Cephulac (Oral Use)) 20 gm PO TID [facility] Last Admin: 05/29/17 07:58 Dose: 20 gm Lorazepam (Ativan -) 0.5 mg PO TID PRN PRN Reason: ANXIETY Last Admin: 05/25/17 22:57 Dose: 0.5 mg Prednisone (Deltasone -) 5 mg PO DAILY [facility] Last Admin: 05/29/17 09:42 Dose: 5 mg - Objective Vital Signs: Vital Signs Temperature 98.2 F 05/29/17 09:45 Pulse Rate 100 H 05/29/17 09:45 Respiratory Rate 20 05/29/17 09:45 Blood Pressure 116/65 05/29/17 09:45 O2 Sat by Pulse Oximetry (%) 98 05/29/17 09:00 Constitutional: Yes: Calm, Thin Eyes: Yes: WNL HENT: Yes: WNL Neck: Yes: WNL Cardiovascular: Yes: Pulse Irregular, S1, S2 Respiratory: Yes: Diminished Gastrointestinal: Yes: Normal Bowel Sounds, Soft Extremities: Yes: WNL Edema: No Labs: CBC, BMP 05/26/17 06:00 05/28/17 12:06 INR, PTT INR 1.08 (0.82-1.09) 05/25/17 14:07 Assessment/Plan A/P AAA Lung Ca s/p LLL lobectomy COPD Atrial Fibrillation - low dose prednisone - inhaled bronchodilators - incentive spirometry - no pulmonary contraindications for planned EVAR - DVT prophylaxis DR CRUZ
[2017-05-29] MEDS: LORazepam 0.5 MG TABLET PO PRN (14:37)
[2017-05-30 07:12] LABS: HEMATOCRIT 36.9 % (32.4-45.2); HEMOGLOBIN 12.5 GM/dL (10.7-15.3); MCH 30.5 pg (25.7-33.7); MCHC 33.8 g/dl (32.0-36.0); MEAN CELL VOLUME 90.1 fl (80-96); MEAN PLT VOLUME 7.5 fl (7.5-11.1); PLATELET COUNT 355 K/MM3 (134-434); RBC 4.09 M/mm3 (3.60-5.2); RDW 14.6 % (11.6-15.6); WHITE BLOOD COUNT 10.3 K/mm3 (4.0-10.0)
[2017-05-30] MEDS: LACTULOSE 20 GM/30 ML UDC (FOR ORAL USE ONLY) PO SCH ×3 (09:09→21:02)
[2017-05-30] MEDS: HEPARIN INFUSION - 25,000 UNITS/500 ML INFUS.BAG IVPB SCH (09:10)
[2017-05-30] MEDS: BUDESONIDE/FORMETEROL FUMARATE 160/4.5 mcg INHALER IH SCH (09:35)
[2017-05-30] MEDS: DOCUSATE SODIUM 100 MG CAPSULE (FP) PO SCH ×2 (09:35→21:03)
[2017-05-30] MEDS: predniSONE 5 MG TABLET (UD) PO SCH (09:35)
--- NOTE | 2017-05-30 11:12 | PN ---
Progress Note (short form) - Note Progress Note: RENAL Pt is awake and alert well known to me from office visits says she has bowel movements when she takes lactulose Last Vital Signs Temp Pulse Resp BP Pulse Ox 98.1 F 88 18 122/57 96 05/30/17 06:00 05/30/17 06:00 05/30/17 06:00 05/30/17 06:00 05/29/17 21:00 lungs left lung clear, right decreased breath sounds cvs s1s2 rr abd soft, ext no edema neuro a+ox3 CBC, BMP 05/30/17 06:00 05/28/17 12:06 Current Medications Generic Name Dose Route Start Last Admin Trade Name Freq PRN Reason Stop Dose Admin Acetaminophen 650 mg 05/25/17 15:19 05/28/17 15:10 Tylenol - PO 650 mg Q6H PRN Administration FEVER OR PAIN Budesonide/Formoterol Fumarate 1 puff 05/25/17 15:30 05/30/17 09:35 Symbicort 160/4.5mcg - IH 1 inhaler BID [facility] Administration Diltiazem HCl 180 mg 05/26/17 10:00 05/30/17 09:35 Cardizem Cd - PO 180 mg DAILY [facility] Administration Docusate Sodium 100 mg 05/27/17 17:15 05/30/17 09:35 Colace - PO 100 mg BID ANNA Administration Heparin Sodium (Porcine) 1,000 unit 05/28/17 06:19 05/29/17 09:00 Heparin - IVPUSH 1,000 unit PRN PRN Administration Heparin Heparin Sodium (Porcine) 5,000 unit 05/28/17 06:19 05/28/17 15:17 Heparin - IVPUSH 5,000 unit PRN PRN Administration Heparin Heparin Sodium/Dextrose 25,000 units in 500 mls @ 16 mls/hr 05/28/17 07:00 09:10 Heparin Infusion - IVPB 1,050 units/hr TITR ANNA 21 mls/hr Protocol Administration 800 UNITS/HR Lactulose 20 gm 05/27/17 16:45 05/30/17 09:09 Cephulac (Oral Use) PO 20 gm TID ANNA Administration Lorazepam 0.5 mg 05/25/17 15:19 05/29/17 14:37 Ativan - PO 0.5 mg TID PRN Administration ANXIETY Prednisone 5 mg 05/26/17 18:30 05/30/17 09:35 Deltasone - PO 5 mg DAILY ANNA Administration IMPRESSION 1. CKD with acute component 2. AAA 3. lung cancer 4. HTN 5. a-fib 6. chol 7. hydropneumothorax 8. GI bleed Plan - creatinine continues to improve, she is at her baseline - endovascular repair next week - should be prepped for contrast - avoid fleet enemas - no acute change in management - strongly recommended against smoking but she insists on doing it - no contraindication to colonoscopy from renal perspective after a successful repair of AAA MV
--- NOTE | 2017-05-30 11:17 | PN ---
Progress Note, Physician Chief Complaint: AWAKE ALERT NAD - Current Medication List Current Medications: Active Medications Acetaminophen (Tylenol -) 650 mg PO Q6H PRN PRN Reason: FEVER OR PAIN Last Admin: 05/28/17 15:10 Dose: 650 mg Budesonide/Formoterol Fumarate (Symbicort 160/4.5mcg -) 1 puff IH BID [facility] Last Admin: 05/30/17 09:35 Dose: 1 inhaler Diltiazem HCl (Cardizem Cd -) 180 mg PO DAILY [facility] Last Admin: 05/30/17 09:35 Dose: 180 mg Docusate Sodium (Colace -) 100 mg PO BID [facility] Last Admin: 05/30/17 09:35 Dose: 100 mg Heparin Sodium (Porcine) (Heparin -) 1,000 unit IVPUSH PRN PRN PRN Reason: Heparin Last Admin: 05/29/17 09:00 Dose: 1,000 unit Heparin Sodium (Porcine) (Heparin -) 5,000 unit IVPUSH PRN PRN PRN Reason: Heparin Last Admin: 05/28/17 15:17 Dose: 5,000 unit Heparin Sodium/Dextrose (Heparin Infusion -) 25,000 units in 500 mls @ 16 mls/ hr IVPB TITR [facility]; 800 UNITS/HR PRN Reason: Protocol Last Admin: 05/30/17 09:10 Dose: 1,050 units/hr, 21 mls/hr Lactulose (Cephulac (Oral Use)) 20 gm PO TID [facility] Last Admin: 05/30/17 09:09 Dose: 20 gm Lorazepam (Ativan -) 0.5 mg PO TID PRN PRN Reason: ANXIETY Last Admin: 05/29/17 14:37 Dose: 0.5 mg Prednisone (Deltasone -) 5 mg PO DAILY [facility] Last Admin: 05/30/17 09:35 Dose: 5 mg - Objective Vital Signs: Vital Signs Temperature 98.1 F 05/30/17 06:00 Pulse Rate 88 05/30/17 06:00 Respiratory Rate 18 05/30/17 06:00 Blood Pressure 122/57 05/30/17 06:00 O2 Sat by Pulse Oximetry (%) 96 05/29/17 21:00 Constitutional: Yes: No Distress Eyes: Yes: WNL HENT: Yes: WNL Neck: Yes: WNL Cardiovascular: Yes: WNL Respiratory: Yes: WNL Gastrointestinal: Yes: WNL Genitourinary: Yes: WNL Musculoskeletal: Yes: WNL Extremities: Yes: WNL Edema: No Peripheral Pulses WNL: Yes Integumentary: Yes: WNL Wound/Incision: Yes: Clean/Dry Neurological: Yes: WNL ...Motor Strength: WNL Psychiatric: Yes: WNL Labs: CBC, BMP 05/30/17 06:00 05/28/17 12:06 INR, PTT INR 1.08 (0.82-1.09) 05/25/17 14:07 Problem List - Problems (1) Melena Code(s): K92.1 - MELENA (2) Stool guaiac positive Code(s): R19.5 - OTHER FECAL ABNORMALITIES (3) Abdominal aneurysm Code(s): I71.4 - ABDOMINAL AORTIC ANEURYSM, WITHOUT RUPTURE (4) Atrial fibrillation Code(s): I48.91 - UNSPECIFIED ATRIAL FIBRILLATION Qualifiers: Atrial fibrillation type: persistent Qualified Code(s): I48.1 - Persistent atrial fibrillation (5) COPD (chronic obstructive pulmonary disease) Code(s): J44.9 - CHRONIC OBSTRUCTIVE PULMONARY DISEASE, UNSPECIFIED Qualifiers: Emphysema type: centrilobular (6) Chronic renal disease Code(s): N18.9 - CHRONIC KIDNEY DISEASE, UNSPECIFIED Qualifiers: Chronic kidney disease stage: stage 4 (severe) Qualified Code(s): N18.4 - Chronic kidney disease, stage 4 (severe) (7) Constipation Code(s): K59.00 - CONSTIPATION, UNSPECIFIED (8) 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 PATIENT IS MEDICALL CLEARED FOR ENDOVASCULAR REPAIR OF AAA
--- NOTE | 2017-05-30 16:45 | PN ---
Progress Note, Physician History of Present Illness: pulmonary alert,c/o sob,-cough,-cp - Current Medication List Current Medications: Active Medications Acetaminophen (Tylenol -) 650 mg PO Q6H PRN PRN Reason: FEVER OR PAIN Last Admin: 05/28/17 15:10 Dose: 650 mg Budesonide/Formoterol Fumarate (Symbicort 160/4.5mcg -) 1 puff IH BID [facility] Last Admin: 05/30/17 09:35 Dose: 1 inhaler Diltiazem HCl (Cardizem Cd -) 180 mg PO DAILY [facility] Last Admin: 05/30/17 09:35 Dose: 180 mg Docusate Sodium (Colace -) 100 mg PO BID [facility] Last Admin: 05/30/17 09:35 Dose: 100 mg Heparin Sodium (Porcine) (Heparin -) 1,000 unit IVPUSH PRN PRN PRN Reason: Heparin Last Admin: 05/29/17 09:00 Dose: 1,000 unit Heparin Sodium (Porcine) (Heparin -) 5,000 unit IVPUSH PRN PRN PRN Reason: Heparin Last Admin: 05/28/17 15:17 Dose: 5,000 unit Heparin Sodium/Dextrose (Heparin Infusion -) 25,000 units in 500 mls @ 16 mls/ hr IVPB TITR [facility]; 800 UNITS/HR PRN Reason: Protocol Last Admin: 05/30/17 09:10 Dose: 1,050 units/hr, 21 mls/hr Lactulose (Cephulac (Oral Use)) 20 gm PO TID [facility] Last Admin: 05/30/17 14:25 Dose: Not Given Lorazepam (Ativan -) 0.5 mg PO TID PRN PRN Reason: ANXIETY Last Admin: 05/29/17 14:37 Dose: 0.5 mg Prednisone (Deltasone -) 5 mg PO DAILY [facility] Last Admin: 05/30/17 09:35 Dose: 5 mg - Objective Vital Signs: Vital Signs Temperature 98.1 F 05/30/17 14:11 Pulse Rate 78 05/30/17 14:11 Respiratory Rate 20 05/30/17 14:11 Blood Pressure 144/79 05/30/17 14:11 O2 Sat by Pulse Oximetry (%) 97 05/30/17 09:00 Constitutional: Yes: Calm, Thin Eyes: Yes: WNL HENT: Yes: WNL Neck: Yes: WNL Cardiovascular: Yes: Pulse Irregular, S1, S2 Respiratory: Yes: Diminished Gastrointestinal: Yes: Normal Bowel Sounds, Soft Extremities: Yes: WNL Edema: No Labs: CBC, BMP 05/30/17 06:00 Assessment/Plan A/P AAA Lung Ca s/p LLL lobectomy COPD Atrial Fibrillation - low dose prednisone - inhaled bronchodilators - incentive spirometry - no pulmonary contraindications for planned EVAR - DVT prophylaxis DR CRUZ
[2017-05-30] MEDS ORDERED: ALBUTEROL SO4 0.083% IH SOL 2.5 MG/3 ML VIAL.NEB. NEB PRN (17:01)
[2017-05-30] MEDS: TIOTROPIUM BROMIDE 18 MCG/INH (DEVICE W/ 5 CAPSULES) IH SCH (18:27)
[2017-05-31] MEDS: ACETAMINOPHEN 325 MG TABLET (FP) PO PRN (05:15)
[2017-05-31] MEDS: LACTULOSE 20 GM/30 ML UDC (FOR ORAL USE ONLY) PO SCH ×2 (06:04→13:18)
[2017-05-31] MEDS ORDERED: ACETAMINOPHEN 325 MG TABLET (FP) PO ONE (06:30)
[2017-05-31] MEDS ORDERED: oxyCODONE HCL 5 MG TABLET PO ONE (06:30)
[2017-05-31 07:15] LABS: HEMATOCRIT 32.8 % (32.4-45.2); HEMOGLOBIN 11.1 GM/dL (10.7-15.3); MCH 30.7 pg (25.7-33.7); MCHC 33.8 g/dl (32.0-36.0); MEAN CELL VOLUME 90.7 fl (80-96); MEAN PLT VOLUME 7.2 fl (7.5-11.1); PLATELET COUNT 291 K/MM3 (134-434); RBC 3.62 M/mm3 (3.60-5.2); RDW 14.6 % (11.6-15.6); WHITE BLOOD COUNT 8.8 K/mm3 (4.0-10.0)
--- NOTE | 2017-05-31 08:31 | PN ---
Progress Note (short form) - Note Progress Note: 77yo female patient admitted secondary to severe constipation. A CT scan confirmed this as well as showed an increase in the size of her AAA (compared to previous CT on last admission (5.4 cm --> 5.8 cm). Asymptomatic at this time. Given size, it should be repaired on this hsopital admission. Cleared medically (Alexi). Cleared cardio (Aleena). Problem List - Problems (1) Abdominal aortic aneurysm (AAA) Assessment/Plan: Diet as tolerated EVAR scheduled for 05/31/17 Medical optimization GI / DVT ppx Afib control Type and screen Code(s): I71.4 - ABDOMINAL AORTIC ANEURYSM, WITHOUT RUPTURE
[2017-05-31] MEDS: HEPARIN INFUSION - 25,000 UNITS/500 ML INFUS.BAG IVPB SCH (09:49)
[2017-05-31] MEDS: predniSONE 5 MG TABLET (UD) PO SCH (09:49)
[2017-05-31] MEDS: DOCUSATE SODIUM 100 MG CAPSULE (FP) PO SCH ×2 (09:49→14:00)
[2017-05-31] MEDS: TIOTROPIUM BROMIDE 18 MCG/INH (DEVICE W/ 5 CAPSULES) IH SCH (09:57)
--- NOTE | 2017-05-31 10:53 | PN ---
Progress Note (short form) - Note Progress Note: Vascular Surgery Patient seen and examined at bedside No complaints ABD soft ND. + pulsatile mass in epigastrium. Slight TTP in LLQ For EVAAR on wednesday06/02/2107 Patient medically optimized from renal cardiac and medical stand point Continue DVT PPx continue Hep gtt consider starting GI PPx given steroid use Get full set of pre-op labs wednesday including CBC, CMP, Mg, Phos, Coags, Type and screen with EKG A. fib rate control
--- NOTE | 2017-05-31 11:57 | PN ---
Progress Note (short form) - Note Progress Note: Resting in NAD. No CP or SOB,. Intake & Output 05/28/17 05/29/17 05/30/17 05/31/17 23:59 23:59 23:59 23:59 Intake Total 76 1117 1154 535 Output Total 1 Balance 75 1117 1154 535 Weight 137 lb 8 oz 136 lb 14.4 oz 135 lb 9.6 oz 135 lb 3.2 oz Last Vital Signs Temp Pulse Resp BP Pulse Ox 98.5 F 86 20 116/64 96 05/31/17 09:00 05/31/17 09:00 05/31/17 09:00 05/31/17 09:00 05/30/17 20:42 Active Medications Acetaminophen (Tylenol -) 650 mg PO Q6H PRN PRN Reason: FEVER OR PAIN Last Admin: 05/31/17 05:15 Dose: 650 mg Albuterol Sulfate (Ventolin 0.083% Nebulizer Soln -) 1 amp NEB Q4H PRN PRN Reason: SHORT OF BREATH/WHEEZING Diltiazem HCl (Cardizem Cd -) 180 mg PO DAILY [facility] Last Admin: 05/31/17 09:49 Dose: 180 mg Docusate Sodium (Colace -) 100 mg PO BID [facility] Last Admin: 05/31/17 09:49 Dose: 100 mg Heparin Sodium (Porcine) (Heparin -) 1,000 unit IVPUSH PRN PRN PRN Reason: Heparin Last Admin: 05/29/17 09:00 Dose: 1,000 unit Heparin Sodium (Porcine) (Heparin -) 5,000 unit IVPUSH PRN PRN PRN Reason: Heparin Last Admin: 05/28/17 15:17 Dose: 5,000 unit Heparin Sodium/Dextrose (Heparin Infusion -) 25,000 units in 500 mls @ 16 mls/ hr IVPB TITR [facility]; 800 UNITS/HR PRN Reason: Protocol Last Admin: 05/31/17 09:49 Dose: 1,050 units/hr, 21 mls/hr Lactulose (Cephulac (Oral Use)) 20 gm PO TID [facility] Last Admin: 05/31/17 06:04 Dose: Not Given Lorazepam (Ativan -) 0.5 mg PO TID PRN PRN Reason: ANXIETY Last Admin: 05/29/17 14:37 Dose: 0.5 mg Prednisone (Deltasone -) 5 mg PO DAILY [facility] Last Admin: 05/31/17 09:49 Dose: 5 mg Tiotropium [place] (Spiriva -) 1 puff IH DAILY [facility] Last Admin: 05/31/17 09:57 Dose: 1 puff Constitutional: Yes: NAD, Thin Eyes: Yes: WNL HENT: Yes: WNL Neck: Yes: WNL Cardiovascular: Yes: Pulse Irregular, S1, S2 Respiratory: Yes: Diminished Gastrointestinal: Yes: Normal Bowel Sounds, Soft Extremities: Yes: WNL Edema: No Labs: Laboratory Results - last 24 hr 05/31/17 05/31/17 05:35 05:35 WBC 8.8 RBC 3.62 Hgb 11.1 D Hct 32.8 MCV 90.7 MCH 30.7 MCHC 33.8 RDW 14.6 Plt Count 291 MPV 7.2 L PTT (Actin FS) 59.4 H Assessment/Plan A/P AAA Lung Ca s/p LLL lobectomy COPD Atrial Fibrillation - Prednisone 5 mg OD - inhaled bronchodilators - incentive spirometry - no pulmonary contraindications for planned EVAR Dr Bacon
--- NOTE | 2017-05-31 13:17 | PN ---
Progress Note, Physician History of Present Illness: Pt seen and examined at bedside. She is awake and alert. She denies shortness of breath. - Current Medication List Current Medications: Active Medications Acetaminophen (Tylenol -) 650 mg PO Q6H PRN PRN Reason: FEVER OR PAIN Last Admin: 05/31/17 05:15 Dose: 650 mg Albuterol Sulfate (Ventolin 0.083% Nebulizer Soln -) 1 amp NEB Q4H PRN PRN Reason: SHORT OF BREATH/WHEEZING Diltiazem HCl (Cardizem Cd -) 180 mg PO DAILY [facility] Last Admin: 05/31/17 09:49 Dose: 180 mg Docusate Sodium (Colace -) 100 mg PO BID [facility] Last Admin: 05/31/17 09:49 Dose: 100 mg Heparin Sodium (Porcine) (Heparin -) 1,000 unit IVPUSH PRN PRN PRN Reason: Heparin Last Admin: 05/29/17 09:00 Dose: 1,000 unit Heparin Sodium (Porcine) (Heparin -) 5,000 unit IVPUSH PRN PRN PRN Reason: Heparin Last Admin: 05/28/17 15:17 Dose: 5,000 unit Heparin Sodium/Dextrose (Heparin Infusion -) 25,000 units in 500 mls @ 16 mls/ hr IVPB TITR [facility]; 800 UNITS/HR PRN Reason: Protocol Last Admin: 05/31/17 09:49 Dose: 1,050 units/hr, 21 mls/hr Lactulose (Cephulac (Oral Use)) 20 gm PO TID [facility] Last Admin: 05/31/17 06:04 Dose: Not Given Lorazepam (Ativan -) 0.5 mg PO TID PRN PRN Reason: ANXIETY Last Admin: 05/29/17 14:37 Dose: 0.5 mg Prednisone (Deltasone -) 5 mg PO DAILY [facility] Last Admin: 05/31/17 09:49 Dose: 5 mg Tiotropium [place] (Spiriva -) 1 puff IH DAILY [facility] Last Admin: 05/31/17 09:57 Dose: 1 puff - Objective Vital Signs: Vital Signs Temperature 98.5 F 05/31/17 09:00 Pulse Rate 86 05/31/17 09:00 Respiratory Rate 20 05/31/17 09:00 Blood Pressure 116/64 05/31/17 09:00 O2 Sat by Pulse Oximetry (%) 95 05/31/17 09:00 Constitutional: Yes: Calm Eyes: Yes: Conjunctiva Clear Cardiovascular: Yes: S1, S2 Respiratory: Yes: CTA Bilaterally Gastrointestinal: Yes: Soft Genitourinary: Yes: WNL Musculoskeletal: Yes: WNL Edema: No Neurological: Yes: Oriented Psychiatric: Yes: Oriented Labs: CBC, BMP 05/31/17 05:35 05/28/17 12:06 INR, PTT INR 1.08 (0.82-1.09) 05/25/17 14:07 Problem List - Problems (1) Abdominal aortic aneurysm (AAA) Code(s): I71.4 - ABDOMINAL AORTIC ANEURYSM, WITHOUT RUPTURE (2) Stool guaiac positive Code(s): R19.5 - OTHER FECAL ABNORMALITIES (3) Atrial fibrillation Code(s): I48.91 - UNSPECIFIED ATRIAL FIBRILLATION Qualifiers: Atrial fibrillation type: persistent Qualified Code(s): I48.1 - Persistent atrial fibrillation (4) COPD (chronic obstructive pulmonary disease) Code(s): J44.9 - CHRONIC OBSTRUCTIVE PULMONARY DISEASE, UNSPECIFIED Qualifiers: Emphysema type: centrilobular (5) Chronic renal disease Code(s): N18.9 - CHRONIC KIDNEY DISEASE, UNSPECIFIED Qualifiers: Chronic kidney disease stage: stage 4 (severe) Qualified Code(s): N18.4 - Chronic kidney disease, stage 4 (severe) (6) Pneumothorax Code(s): J93.9 - PNEUMOTHORAX, UNSPECIFIED Qualifiers: Pneumothorax type: postprocedural Qualified Code(s): J95.811 - Postprocedural pneumothorax (7) Tobacco use Code(s): Z72.0 - TOBACCO USE Assessment/Plan Current Medications Generic Name Dose Route Start Last Admin Trade Name Freq PRN Reason Stop Dose Admin Acetaminophen 650 mg 05/25/17 15:19 05/31/17 05:15 Tylenol - PO 650 mg Q6H PRN Administration FEVER OR PAIN Albuterol Sulfate 1 amp 05/30/17 17:01 Ventolin 0.083% Nebulizer Soln - NEB Q4H PRN SHORT OF BREATH/WHEEZING Diltiazem HCl 180 mg 05/26/17 10:00 05/31/17 09:49 Cardizem Cd - PO 180 mg DAILY [facility] Administration Docusate Sodium 100 mg 05/27/17 17:15 05/31/17 09:49 Colace - PO 100 mg BID [facility]NA Administration Heparin Sodium (Porcine) 1,000 unit 05/28/17 06:19 05/29/17 09:00 Heparin - IVPUSH 1,000 unit PRN PRN Administration Heparin Heparin Sodium (Porcine) 5,000 unit 05/28/17 06:19 05/28/17 15:17 Heparin - IVPUSH 5,000 unit PRN PRN Administration Heparin Heparin Sodium/Dextrose 25,000 units in 500 mls @ 16 mls/hr 05/28/17 07:00 09:49 Heparin Infusion - IVPB 1,050 units/hr TITR ANNA 21 mls/hr Protocol Administration 800 UNITS/HR Lactulose 20 gm 05/27/17 16:45 05/31/17 06:04 Cephulac (Oral Use) PO Not Given TID ANNA Lorazepam 0.5 mg 05/25/17 15:19 05/29/17 14:37 Ativan - PO 0.5 mg TID PRN Administration ANXIETY Prednisone 5 mg 05/26/17 18:30 05/31/17 09:49 Deltasone - PO 5 mg DAILY [facility]NA Administration Tiotropium [place] 1 puff 05/30/17 17:15 05/31/17 09:57 Spiriva - IH 1 puff DAILY [facility] Administration 1. CKD with acute component 2. AAA 3. lung cancer 4. HTN 5. a-fib 6. chol 7. hydropneumothorax 8. GI bleed Plan - check bmp in am - endovascular repair likely Wednesday - should be prepped for contrast - avoid fleet enemas - will follow Dr Shearer
--- NOTE | 2017-05-31 15:23 | PN ---
Progress Note (short form) - Note Progress Note: Vascular Surgery Pt for EVAR on wed. Cr is coming down. Please optimize Cr and protect renal function. Will use CO2 as much as i can to do procedure to protect renal function. Josef Qureshi DO
[2017-05-31] MEDS ORDERED: oxyCODONE HCL 5 MG TABLET PO PRN (17:44)
--- NOTE | 2017-05-31 17:44 | PN ---
Progress Note, Physician Chief Complaint: AWAKE ALERT C/O LEFT ABD PAIN - Current Medication List Current Medications: Active Medications Acetaminophen (Tylenol -) 650 mg PO Q6H PRN PRN Reason: FEVER OR PAIN Last Admin: 05/31/17 05:15 Dose: 650 mg Albuterol Sulfate (Ventolin 0.083% Nebulizer Soln -) 1 amp NEB Q4H PRN PRN Reason: SHORT OF BREATH/WHEEZING Diltiazem HCl (Cardizem Cd -) 180 mg PO DAILY [facility] Last Admin: 05/31/17 09:49 Dose: 180 mg Docusate Sodium (Colace -) 100 mg PO TID ANNA Last Admin: 05/31/17 14:00 Dose: 100 mg Heparin Sodium (Porcine) (Heparin -) 1,000 unit IVPUSH PRN PRN PRN Reason: Heparin Last Admin: 05/29/17 09:00 Dose: 1,000 unit Heparin Sodium (Porcine) (Heparin -) 5,000 unit IVPUSH PRN PRN PRN Reason: Heparin Last Admin: 05/28/17 15:17 Dose: 5,000 unit Heparin Sodium/Dextrose (Heparin Infusion -) 25,000 units in 500 mls @ 16 mls/ hr IVPB TITR ANNA; 800 UNITS/HR PRN Reason: Protocol Last Admin: 05/31/17 09:49 Dose: 1,050 units/hr, 21 mls/hr Lactulose (Cephulac (Oral Use)) 20 gm PO TID [facility] Last Admin: 05/31/17 13:18 Dose: 20 gm Lorazepam (Ativan -) 0.5 mg PO TID PRN PRN Reason: ANXIETY Last Admin: 05/29/17 14:37 Dose: 0.5 mg Prednisone (Deltasone -) 5 mg PO DAILY [facility] Last Admin: 05/31/17 09:49 Dose: 5 mg Tiotropium [place] (Spiriva -) 1 puff IH DAILY [facility] Last Admin: 05/31/17 09:57 Dose: 1 puff - Objective Vital Signs: Vital Signs Temperature 98.6 F 05/31/17 14:23 Pulse Rate 93 H 05/31/17 14:23 Respiratory Rate 18 05/31/17 14:23 Blood Pressure 113/64 05/31/17 14:23 O2 Sat by Pulse Oximetry (%) 95 05/31/17 09:00 Constitutional: Yes: Mild Distress Eyes: Yes: WNL HENT: Yes: WNL Neck: Yes: WNL Cardiovascular: Yes: Pulse Irregular Respiratory: Yes: On Nasal O2, Other Gastrointestinal: Yes: Tenderness Genitourinary: Yes: WNL Musculoskeletal: Yes: WNL Extremities: Yes: WNL Edema: No Peripheral Pulses WNL: Yes Integumentary: Yes: WNL Wound/Incision: Yes: Clean/Dry Neurological: Yes: WNL ...Motor Strength: WNL Psychiatric: Yes: WNL Labs: CBC, BMP 05/31/17 05:35 05/28/17 12:06 INR, PTT INR 1.08 (0.82-1.09) 05/25/17 14:07 Problem List - Problems (1) Melena Code(s): K92.1 - MELENA (2) Stool guaiac positive Code(s): R19.5 - OTHER FECAL ABNORMALITIES (3) Abdominal aneurysm Code(s): I71.4 - ABDOMINAL AORTIC ANEURYSM, WITHOUT RUPTURE (4) Atrial fibrillation Code(s): I48.91 - UNSPECIFIED ATRIAL FIBRILLATION Qualifiers: Atrial fibrillation type: persistent Qualified Code(s): I48.1 - Persistent atrial fibrillation (5) COPD (chronic obstructive pulmonary disease) Code(s): J44.9 - CHRONIC OBSTRUCTIVE PULMONARY DISEASE, UNSPECIFIED Qualifiers: Emphysema type: centrilobular (6) Chronic renal disease Code(s): N18.9 - CHRONIC KIDNEY DISEASE, UNSPECIFIED Qualifiers: Chronic kidney disease stage: stage 4 (severe) Qualified Code(s): N18.4 - Chronic kidney disease, stage 4 (severe) (7) Constipation Code(s): K59.00 - CONSTIPATION, UNSPECIFIED (8) Lung malignancy Code(s): C34.90 - MALIGNANT NEOPLASM OF UNSP PART OF UNSP BRONCHUS OR LUNG Qualifiers: Laterality: left Assessment/Plan WEDNESDAY FOR AAA REPAIR MEDICALLY CLEARED FOR SURGERY HEPARIN IV FOR AFIB AC CHANGE TO ELIQUIS ON DISCHARGE XRAYS FUA/KUB FOR LEFT SIDE ABD PAIN PAIN CONTROL LAXATIVES FOR CONSTIPATION
[2017-06-01] MEDS: LORazepam 0.5 MG TABLET PO PRN (00:05)
[2017-06-01] MEDS: LACTULOSE 20 GM/30 ML UDC (FOR ORAL USE ONLY) PO SCH ×4 (01:16→21:52)
[2017-06-01] MEDS: DOCUSATE SODIUM 100 MG CAPSULE (FP) PO SCH ×4 (01:16→21:52)
--- NOTE | 2017-06-01 07:14 | SPA.PREOP ---
- PRE-OP NOTE Dx: Increase in size of AAA 5.4 cm to 5.8 cm; stable. Asymptomatic Planned Procedure: EVAR Surgeon: Josef Qureshi DO Consent: To be obtained by surgeon after risks, benefits and alternatives explained to patient. Last Vital Signs Temp Pulse Resp BP Pulse Ox 98.2 F 96 H 20 118/74 95 06/01/17 05:42 06/01/17 05:42 06/01/17 05:42 06/01/17 05:42 05/31/17 09:00 CBC, BMP 05/31/17 05:35 05/28/17 12:06 INR, PTT INR 1.08 (0.82-1.09) 05/25/17 14:07 - IMAGING Chest X-ray: Report Reviewed, Image Reviewed Cat Scan: Report Reviewed, Image Reviewed - ASSESSMENT/PLAN Problem List - Problems (1) Abdominal aortic aneurysm (AAA) Assessment/Plan: 1. NPO after midnight except po meds 2. GI/DVT PPX 3. Medical & Cardio cleared 4. 2 Units PRBC on hold for OR 5. Repeat type and screen ordered Code(s): I71.4 - ABDOMINAL AORTIC ANEURYSM, WITHOUT RUPTURE Qualifiers: Presence of rupture: without rupture Qualified Code(s): I71.4 - Abdominal aortic aneurysm, without rupture Visit type - Case Type Case Type: ED Admission
[2017-06-01 07:37] LABS: HEMATOCRIT 32.8 % (32.4-45.2); HEMOGLOBIN 11.1 GM/dL (10.7-15.3); MCH 30.4 pg (25.7-33.7); MEAN CELL VOLUME 89.5 fl (80-96); MEAN PLT VOLUME 7.1 fl (7.5-11.1); PLATELET COUNT 285 K/MM3 (134-434); RBC 3.66 M/mm3 (3.60-5.2); RDW 14.6 % (11.6-15.6); WHITE BLOOD COUNT 8.6 K/mm3 (4.0-10.0)
[2017-06-01] MEDS ORDERED: PT OWN MED DRAWER 7, Y5N ONE (07:53)
[2017-06-01 08:14] LABS: ANION GAP 9 (8-16); BLOOD UREA NITROGEN 42 mg/dL (7-18); CALCIUM 8.2 mg/dL (8.5-10.1); CHLORIDE 107 mmol/L (98-107); CO2 22 mmol/L (21-32); CREATININE 2.4 mg/dL (0.55-1.02); GLUCOSE,RANDOM 95 mg/dL (74-106); POTASSIUM 3.8 mmol/L (3.5-5.1); SODIUM 138 mmol/L (136-145)
[2017-06-01] MEDS: predniSONE 5 MG TABLET (UD) PO SCH (09:00)
[2017-06-01] MEDS: TIOTROPIUM BROMIDE 18 MCG/INH (DEVICE W/ 5 CAPSULES) IH SCH (09:03)
[2017-06-01] MEDS: HEPARIN INFUSION - 25,000 UNITS/500 ML INFUS.BAG IVPB SCH (10:00)
[2017-06-01] MEDS: ALBUTEROL SO4 0.083% IH SOL 2.5 MG/3 ML VIAL.NEB. NEB SCH ×2 (11:20→21:36)
--- NOTE | 2017-06-01 12:04 | PN ---
Progress Note (short form) - Note Progress Note: Resting in NAD. No CP or SOB,. Intake & Output 05/29/17 05/30/17 05/31/17 06/01/17 23:59 23:59 23:59 23:59 Intake Total 1117 1154 1411 168 Balance 1117 1154 1411 168 Weight 136 lb 14.4 oz 135 lb 9.6 oz 135 lb 3.2 oz 138 lb Last Vital Signs Temp Pulse Resp BP Pulse Ox 97.3 F L 107 H 18 106/68 95 06/01/17 08:55 06/01/17 08:55 06/01/17 08:55 06/01/17 08:55 05/31/17 09:00 Active Medications Acetaminophen (Tylenol -) 650 mg PO Q6H PRN PRN Reason: FEVER OR PAIN Last Admin: 05/31/17 05:15 Dose: 650 mg Albuterol Sulfate (Ventolin 0.083% Nebulizer Soln -) 1 amp NEB Q4H PRN PRN Reason: SHORT OF BREATH/WHEEZING Last Admin: 06/01/17 04:35 Dose: 1 amp Diltiazem HCl (Cardizem Cd -) 180 mg PO DAILY [facility] Last Admin: 06/01/17 09:00 Dose: 180 mg Docusate Sodium (Colace -) 100 mg PO TID ANNA Last Admin: 06/01/17 09:00 Dose: 100 mg Heparin Sodium (Porcine) (Heparin -) 1,000 unit IVPUSH PRN PRN PRN Reason: Heparin Last Admin: 05/29/17 09:00 Dose: 1,000 unit Heparin Sodium (Porcine) (Heparin -) 5,000 unit IVPUSH PRN PRN PRN Reason: Heparin Last Admin: 05/28/17 15:17 Dose: 5,000 unit Heparin Sodium/Dextrose (Heparin Infusion -) 25,000 units in 500 mls @ 16 mls/ hr IVPB TITR ANNA; 800 UNITS/HR PRN Reason: Protocol Last Admin: 05/31/17 09:49 Dose: 1,050 units/hr, 21 mls/hr Lactulose (Cephulac (Oral Use)) 20 gm PO TID ANNA Last Admin: 06/01/17 08:58 Dose: 20 gm Lorazepam (Ativan -) 0.5 mg PO TID PRN PRN Reason: ANXIETY Last Admin: 06/01/17 00:05 Dose: 0.5 mg Oxycodone HCl (Roxicodone -) 5 mg PO Q6H PRN PRN Reason: PAIN Prednisone (Deltasone -) 5 mg PO DAILY [facility] Last Admin: 06/01/17 09:00 Dose: 5 mg Tiotropium [place] (Spiriva -) 1 puff IH DAILY [facility] Last Admin: 06/01/17 09:03 Dose: 1 puff Constitutional: Yes: NAD, Thin Eyes: Yes: WNL HENT: Yes: WNL Neck: Yes: WNL Cardiovascular: Yes: Pulse Irregular, S1, S2 Respiratory: Yes: Diminished Gastrointestinal: Yes: Normal Bowel Sounds, Soft Extremities: Yes: WNL Edema: No Labs: Laboratory Results - last 24 hr 06/01/17 06/01/17 06/01/17 06:00 06:00 06:00 WBC 8.6 RBC 3.66 Hgb 11.1 Hct 32.8 MCV 89.5 MCH 30.4 MCHC 34.0 RDW 14.6 Plt Count 285 MPV 7.1 L PTT (Actin FS) 66.5 H Sodium 138 Potassium 3.8 Chloride 107 Carbon Dioxide 22 Anion Gap 9 BUN 42 H Creatinine 2.4 H Random Glucose 95 Calcium 8.2 L Blood Type Antibody Screen Crossmatch 06/01/17 08:00 WBC RBC Hgb Hct MCV MCH MCHC RDW Plt Count MPV PTT (Actin FS) Sodium Potassium Chloride Carbon Dioxide Anion Gap BUN Creatinine Random Glucose Calcium Blood Type A POSITIVE Antibody Screen Negative Crossmatch See Detail Assessment/Plan A/P AAA Lung Ca s/p LLL lobectomy COPD Atrial Fibrillation - Prednisone 5 mg OD - inhaled bronchodilators - incentive spirometry - No pulmonary contraindications for planned EVAR Dr Bacon
[2017-06-01] MEDS ORDERED: ALBUTEROL SO4 18 GM HFA INHALER IH PRN (12:26)
--- NOTE | 2017-06-01 14:25 | PN ---
Progress Note, Physician Chief Complaint: AWAKE ALERT FEELING BETTER TODAY DENIES CHEST PAIN +COUGH - Current Medication List Current Medications: Active Medications Acetaminophen (Tylenol -) 650 mg PO Q6H PRN PRN Reason: FEVER OR PAIN Last Admin: 05/31/17 05:15 Dose: 650 mg Albuterol Sulfate (Ventolin Hfa Inhaler -) 2 puff IH Q4H PRN PRN Reason: SHORT OF BREATH/WHEEZING Albuterol Sulfate (Ventolin 0.083% Nebulizer Soln -) 1 amp NEB TIDR [facility] Last Admin: 06/01/17 11:20 Dose: 1 amp Diltiazem HCl (Cardizem Cd -) 180 mg PO DAILY [facility] Last Admin: 06/01/17 09:00 Dose: 180 mg Docusate Sodium (Colace -) 100 mg PO TID [facility] Last Admin: 06/01/17 13:49 Dose: 100 mg Heparin Sodium (Porcine) (Heparin -) 1,000 unit IVPUSH PRN PRN PRN Reason: Heparin Last Admin: 05/29/17 09:00 Dose: 1,000 unit Heparin Sodium (Porcine) (Heparin -) 5,000 unit IVPUSH PRN PRN PRN Reason: Heparin Last Admin: 05/28/17 15:17 Dose: 5,000 unit Heparin Sodium/Dextrose (Heparin Infusion -) 25,000 units in 500 mls @ 16 mls/ hr IVPB TITR ANNA; 800 UNITS/HR PRN Reason: Protocol Last Admin: 06/01/17 10:00 Dose: 1,050 units/hr, 21 mls/hr Lactulose (Cephulac (Oral Use)) 20 gm PO TID [facility] Last Admin: 06/01/17 13:43 Dose: 20 gm Lorazepam (Ativan -) 0.5 mg PO TID PRN PRN Reason: ANXIETY Last Admin: 06/01/17 00:05 Dose: 0.5 mg Methylprednisolone Sodium Succinate (Solu-Medrol -) 80 mg IVPUSH ONCE ONE Stop: 06/02/17 08:01 Oxycodone HCl (Roxicodone -) 5 mg PO Q6H PRN PRN Reason: PAIN Prednisone (Deltasone -) 5 mg PO DAILY [facility] Last Admin: 06/01/17 09:00 Dose: 5 mg Tiotropium [place] (Spiriva -) 1 puff IH DAILY [facility] Last Admin: 06/01/17 09:03 Dose: 1 puff - Objective Vital Signs: Vital Signs Temperature 97.3 F L 06/01/17 08:55 Pulse Rate 107 H 06/01/17 08:55 Respiratory Rate 18 06/01/17 08:55 Blood Pressure 106/68 06/01/17 08:55 O2 Sat by Pulse Oximetry (%) 95 05/31/17 09:00 Constitutional: Yes: Mild Distress Eyes: Yes: WNL HENT: Yes: WNL Neck: Yes: WNL Cardiovascular: Yes: Pulse Irregular Respiratory: Yes: Cough, Poor Air Entry Gastrointestinal: Yes: WNL Genitourinary: Yes: WNL Musculoskeletal: Yes: Muscle Weakness Extremities: Yes: WNL Edema: No Peripheral Pulses WNL: Yes Integumentary: Yes: WNL Wound/Incision: Yes: Clean/Dry Neurological: Yes: WNL ...Motor Strength: WNL Psychiatric: Yes: WNL Labs: CBC, BMP 06/01/17 06:00 06/01/17 06:00 INR, PTT INR 1.08 (0.82-1.09) 05/25/17 14:07 Problem List - Problems (1) Melena Code(s): K92.1 - MELENA (2) Stool guaiac positive Code(s): R19.5 - OTHER FECAL ABNORMALITIES (3) Abdominal aneurysm Code(s): I71.4 - ABDOMINAL AORTIC ANEURYSM, WITHOUT RUPTURE (4) Atrial fibrillation Code(s): I48.91 - UNSPECIFIED ATRIAL FIBRILLATION Qualifiers: Atrial fibrillation type: persistent Qualified Code(s): I48.1 - Persistent atrial fibrillation (5) COPD (chronic obstructive pulmonary disease) Code(s): J44.9 - CHRONIC OBSTRUCTIVE PULMONARY DISEASE, UNSPECIFIED Qualifiers: Emphysema type: centrilobular (6) Chronic renal disease Code(s): N18.9 - CHRONIC KIDNEY DISEASE, UNSPECIFIED Qualifiers: Chronic kidney disease stage: stage 4 (severe) Qualified Code(s): N18.4 - Chronic kidney disease, stage 4 (severe) (7) Constipation Code(s): K59.00 - CONSTIPATION, UNSPECIFIED (8) Lung malignancy Code(s): C34.90 - MALIGNANT NEOPLASM OF UNSP PART OF UNSP BRONCHUS OR LUNG Qualifiers: Laterality: left Assessment/Plan WEDNESDAY FOR AAA REPAIR MEDICALLY CLEARED FOR SURGERY HEPARIN IV FOR AFIB AC CHANGE TO ELIQUIS ON DISCHARGE XRAYS FUA/KUB FOR LEFT SIDE ABD PAIN PAIN CONTROL LAXATIVES FOR CONSTIPATION IVF AND MUCOMYST TODAY PREOP SOLUMEDROL 125MG IV X 1 PRIOR TO SURGERY
--- NOTE | 2017-06-01 16:17 | PN ---
Progress Note, Physician History of Present Illness: Pt seen and examined at bedside. She is awake and alert. She denies shortness of breath. - Current Medication List Current Medications: Active Medications Acetaminophen (Tylenol -) 650 mg PO Q6H PRN PRN Reason: FEVER OR PAIN Last Admin: 05/31/17 05:15 Dose: 650 mg Albuterol Sulfate (Ventolin Hfa Inhaler -) 2 puff IH Q4H PRN PRN Reason: SHORT OF BREATH/WHEEZING Albuterol Sulfate (Ventolin 0.083% Nebulizer Soln -) 1 amp NEB TIDR [facility] Last Admin: 06/01/17 11:20 Dose: 1 amp Diltiazem HCl (Cardizem Cd -) 180 mg PO DAILY [facility] Last Admin: 06/01/17 09:00 Dose: 180 mg Docusate Sodium (Colace -) 100 mg PO TID [facility] Last Admin: 06/01/17 13:49 Dose: 100 mg Heparin Sodium (Porcine) (Heparin -) 1,000 unit IVPUSH PRN PRN PRN Reason: Heparin Last Admin: 05/29/17 09:00 Dose: 1,000 unit Heparin Sodium (Porcine) (Heparin -) 5,000 unit IVPUSH PRN PRN PRN Reason: Heparin Last Admin: 05/28/17 15:17 Dose: 5,000 unit Heparin Sodium/Dextrose (Heparin Infusion -) 25,000 units in 500 mls @ 16 mls/ hr IVPB TITR ANNA; 800 UNITS/HR PRN Reason: Protocol Last Admin: 06/01/17 10:00 Dose: 1,050 units/hr, 21 mls/hr Lactulose (Cephulac (Oral Use)) 20 gm PO TID [facility] Last Admin: 06/01/17 13:43 Dose: 20 gm Lorazepam (Ativan -) 0.5 mg PO TID PRN PRN Reason: ANXIETY Last Admin: 06/01/17 00:05 Dose: 0.5 mg Methylprednisolone Sodium Succinate (Solu-Medrol -) 80 mg IVPUSH ONCE ONE Stop: 06/02/17 08:01 Oxycodone HCl (Roxicodone -) 5 mg PO Q6H PRN PRN Reason: PAIN Prednisone (Deltasone -) 5 mg PO DAILY [facility] Last Admin: 06/01/17 09:00 Dose: 5 mg Tiotropium [place] (Spiriva -) 1 puff IH DAILY [facility] Last Admin: 06/01/17 09:03 Dose: 1 puff - Objective Vital Signs: Vital Signs Temperature 98.9 F 06/01/17 15:25 Pulse Rate 72 06/01/17 15:25 Respiratory Rate 18 06/01/17 15:25 Blood Pressure 106/68 06/01/17 08:55 O2 Sat by Pulse Oximetry (%) 95 05/31/17 09:00 Constitutional: Yes: Calm Eyes: Yes: Conjunctiva Clear HENT: Yes: Atraumatic Neck: Yes: Supple Cardiovascular: Yes: S1, S2 Respiratory: Yes: CTA Bilaterally Gastrointestinal: Yes: Soft Genitourinary: Yes: WNL Musculoskeletal: Yes: WNL Edema: No Neurological: Yes: Oriented Psychiatric: Yes: Oriented Labs: CBC, BMP 06/01/17 06:00 06/01/17 06:00 INR, PTT INR 1.08 (0.82-1.09) 05/25/17 14:07 Problem List - Problems (1) Abdominal aortic aneurysm (AAA) Code(s): I71.4 - ABDOMINAL AORTIC ANEURYSM, WITHOUT RUPTURE Qualifiers: Presence of rupture: without rupture Qualified Code(s): I71.4 - Abdominal aortic aneurysm, without rupture (2) Stool guaiac positive Code(s): R19.5 - OTHER FECAL ABNORMALITIES (3) Atrial fibrillation Code(s): I48.91 - UNSPECIFIED ATRIAL FIBRILLATION Qualifiers: Atrial fibrillation type: persistent Qualified Code(s): I48.1 - Persistent atrial fibrillation (4) COPD (chronic obstructive pulmonary disease) Code(s): J44.9 - CHRONIC OBSTRUCTIVE PULMONARY DISEASE, UNSPECIFIED Qualifiers: Emphysema type: centrilobular (5) Chronic renal disease Code(s): N18.9 - CHRONIC KIDNEY DISEASE, UNSPECIFIED Qualifiers: Chronic kidney disease stage: stage 4 (severe) Qualified Code(s): N18.4 - Chronic kidney disease, stage 4 (severe) (6) Pneumothorax Code(s): J93.9 - PNEUMOTHORAX, UNSPECIFIED Qualifiers: Pneumothorax type: postprocedural Qualified Code(s): J95.811 - Postprocedural pneumothorax (7) Tobacco use Code(s): Z72.0 - TOBACCO USE Assessment/Plan Current Medications Generic Name Dose Route Start Last Admin Trade Name Freq PRN Reason Stop Dose Admin Acetaminophen 650 mg 05/25/17 15:19 05/31/17 05:15 Tylenol - PO 650 mg Q6H PRN Administration FEVER OR PAIN Albuterol Sulfate 2 puff 06/01/17 12:26 Ventolin Hfa Inhaler - IH Q4H PRN SHORT OF BREATH/WHEEZING Albuterol Sulfate 1 amp 06/01/17 14:00 06/01/17 11:20 Ventolin 0.083% Nebulizer Soln - NEB 1 amp TIDR ANNA Administration Diltiazem HCl 180 mg 05/26/17 10:00 06/01/17 09:00 Cardizem Cd - PO 180 mg DAILY ANNA Administration Docusate Sodium 100 mg 05/31/17 14:00 06/01/17 13:49 Colace - PO 100 mg TID ANNA Administration Heparin Sodium (Porcine) 1,000 unit 05/28/17 06:19 05/29/17 09:00 Heparin - IVPUSH 1,000 unit PRN PRN Administration Heparin Heparin Sodium (Porcine) 5,000 unit 05/28/17 06:19 05/28/17 15:17 Heparin - IVPUSH 5,000 unit PRN PRN Administration Heparin Heparin Sodium/Dextrose 25,000 units in 500 mls @ 16 mls/hr 05/28/17 07:00 10:00 Heparin Infusion - IVPB 1,050 units/hr TITR ANNA 21 mls/hr Protocol Administration 800 UNITS/HR Lactulose 20 gm 05/27/17 16:45 06/01/17 13:43 Cephulac (Oral Use) PO 20 gm TID ANNA Administration Lorazepam 0.5 mg 05/25/17 15:19 06/01/17 00:05 Ativan - PO 0.5 mg TID PRN Administration ANXIETY Methylprednisolone Sodium Succinate 80 mg 06/02/17 08:00 Solu-Medrol - IVPUSH 06/02/17 08:01 ONCE ONE Oxycodone HCl 5 mg 05/31/17 17:44 Roxicodone - PO Q6H PRN PAIN Prednisone 5 mg 05/26/17 18:30 06/01/17 09:00 Deltasone - PO 5 mg DAILY AN[facility] Administration Tiotropium [place] 1 puff 05/30/17 17:15 06/01/17 09:03 Spiriva - IH 1 puff DAILY AN[facility] Administration 1. CKD with acute component 2. AAA 3. lung cancer 4. HTN 5. a-fib 6. chol 7. hydropneumothorax 8. GI bleed Plan - renal function is stable - pt going for endovascular repair tomorrow - will give fluids overnight and will prep with mucomyst - avoid fleet enemas - will follow Dr Shearer
[2017-06-01] MEDS: ACETYLCYSTEINE 20% 200MG/ML 30 ML VIAL *FOR ORAL / INH USE ONLY PO SCH (21:51)
[2017-06-02] MEDS ORDERED: SODIUM CHLORIDE 1,000 ML IV SCH (00:01)
[2017-06-02] MEDS: ALBUTEROL SO4 0.083% IH SOL 2.5 MG/3 ML VIAL.NEB. NEB SCH ×4 (06:49→22:36)
[2017-06-02] MEDS: LACTULOSE 20 GM/30 ML UDC (FOR ORAL USE ONLY) PO SCH ×3 (07:05→21:55)
[2017-06-02] MEDS: DOCUSATE SODIUM 100 MG CAPSULE (FP) PO SCH ×3 (07:06→21:56)
[2017-06-02 07:32] LABS: HEMATOCRIT 34.2 % (32.4-45.2); HEMOGLOBIN 11.4 GM/dL (10.7-15.3); MCH 30.1 pg (25.7-33.7); MCHC 33.3 g/dl (32.0-36.0); MEAN CELL VOLUME 90.4 fl (80-96); MEAN PLT VOLUME 7.5 fl (7.5-11.1); PLATELET COUNT 285 K/MM3 (134-434); RBC 3.78 M/mm3 (3.60-5.2); RDW 14.6 % (11.6-15.6); WHITE BLOOD COUNT 9.5 K/mm3 (4.0-10.0)
[2017-06-02] MEDS ORDERED: methylPREDNISolone NA SUCC 40 MG/1 ML VIAL IVPUSH ONE (08:00)
[2017-06-02 08:20] LABS: ANION GAP 12 (8-16); BLOOD UREA NITROGEN 40 mg/dL (7-18); CALCIUM 8.4 mg/dL (8.5-10.1); CHLORIDE 107 mmol/L (98-107); CO2 21 mmol/L (21-32); GLUCOSE,RANDOM 103 mg/dL (74-106); POTASSIUM 3.7 mmol/L (3.5-5.1); SODIUM 140 mmol/L (136-145)
[2017-06-02] MEDS: HEPARIN INFUSION - 25,000 UNITS/500 ML INFUS.BAG IVPB SCH ×2 (08:20→21:53)
[2017-06-02 08:23] LABS: CREATININE 2.4 mg/dL (0.55-1.02)
[2017-06-02] MEDS: predniSONE 5 MG TABLET (UD) PO SCH (09:20)
[2017-06-02] MEDS ORDERED: LORazepam 2 MG/ML SDV VIAL IVPUSH ONE ×2 (10:49→15:35)
--- NOTE | 2017-06-02 10:49 | PN ---
Progress Note, Physician Chief Complaint: AWAKE ALERT NERVOUS ABOUT SURGERY - Current Medication List Current Medications: Active Medications Acetaminophen (Tylenol -) 650 mg PO Q6H PRN PRN Reason: FEVER OR PAIN Last Admin: 05/31/17 05:15 Dose: 650 mg Acetylcysteine (Mucomyst 20 Oral / Inh Use Only*) 1,200 mg PO Q12H [facility] Stop: 06/03/17 10:01 Last Admin: 06/01/17 21:51 Dose: Not Given Albuterol Sulfate (Ventolin Hfa Inhaler -) 2 puff IH Q4H PRN PRN Reason: SHORT OF BREATH/WHEEZING Last Admin: 06/01/17 19:02 Dose: 2 inh Albuterol Sulfate (Ventolin 0.083% Nebulizer Soln -) 1 amp NEB TIDR [facility] Last Admin: 06/02/17 06:49 Dose: 1 amp Diltiazem HCl (Cardizem Cd -) 180 mg PO DAILY [facility] Last Admin: 06/02/17 09:20 Dose: 180 mg Docusate Sodium (Colace -) 100 mg PO TID [facility] Last Admin: 06/02/17 07:06 Dose: Not Given Heparin Sodium (Porcine) (Heparin -) 1,000 unit IVPUSH PRN PRN PRN Reason: Heparin Last Admin: 05/29/17 09:00 Dose: 1,000 unit Heparin Sodium (Porcine) (Heparin -) 5,000 unit IVPUSH PRN PRN PRN Reason: Heparin Last Admin: 05/28/17 15:17 Dose: 5,000 unit Sodium Chloride (Normal Saline -) 1,000 mls @ 75 mls/hr IV ASDIR [facility] Stop: 06/02/17 16:00 Last Admin: 06/02/17 00:07 Dose: 75 mls/hr Cefazolin Sodium (Ancef -) 1 gm in 10 mls @ 120 mls/hr IVPUSH ONCE ONE Stop: 06/02/17 12:04 Lactulose (Cephulac (Oral Use)) 20 gm PO TID [facility] Last Admin: 06/02/17 07:05 Dose: Not Given Lorazepam (Ativan -) 0.5 mg PO TID PRN PRN Reason: ANXIETY Last Admin: 06/01/17 00:05 Dose: 0.5 mg Oxycodone HCl (Roxicodone -) 5 mg PO Q6H PRN PRN Reason: PAIN Prednisone (Deltasone -) 5 mg PO DAILY [facility] Last Admin: 06/02/17 09:20 Dose: 5 mg Tiotropium [place] (Spiriva -) 1 puff IH DAILY [facility] Last Admin: 06/01/17 09:03 Dose: 1 puff - Objective Vital Signs: Vital Signs Temperature 98.1 F 06/02/17 06:20 Pulse Rate 93 H 06/02/17 06:20 Respiratory Rate 18 06/02/17 06:20 Blood Pressure 137/57 06/02/17 06:20 O2 Sat by Pulse Oximetry (%) 96 06/01/17 21:00 Constitutional: Yes: Mild Distress Eyes: Yes: WNL HENT: Yes: WNL Neck: Yes: WNL Cardiovascular: Yes: Pulse Irregular Respiratory: Yes: WNL Gastrointestinal: Yes: WNL Genitourinary: Yes: WNL Musculoskeletal: Yes: WNL Extremities: Yes: WNL Edema: No Peripheral Pulses WNL: Yes Labs: CBC, BMP 06/02/17 06:00 06/02/17 06:00 INR, PTT INR 1.08 (0.82-1.09) 05/25/17 14:07 Problem List - Problems (1) Melena Code(s): K92.1 - MELENA (2) Stool guaiac positive Code(s): R19.5 - OTHER FECAL ABNORMALITIES (3) Abdominal aneurysm Code(s): I71.4 - ABDOMINAL AORTIC ANEURYSM, WITHOUT RUPTURE (4) Atrial fibrillation Code(s): I48.91 - UNSPECIFIED ATRIAL FIBRILLATION Qualifiers: Atrial fibrillation type: persistent Qualified Code(s): I48.1 - Persistent atrial fibrillation (5) COPD (chronic obstructive pulmonary disease) Code(s): J44.9 - CHRONIC OBSTRUCTIVE PULMONARY DISEASE, UNSPECIFIED Qualifiers: Emphysema type: centrilobular (6) Chronic renal disease Code(s): N18.9 - CHRONIC KIDNEY DISEASE, UNSPECIFIED Qualifiers: Chronic kidney disease stage: stage 4 (severe) Qualified Code(s): N18.4 - Chronic kidney disease, stage 4 (severe) (7) Constipation Code(s): K59.00 - CONSTIPATION, UNSPECIFIED (8) Lung malignancy Code(s): C34.90 - MALIGNANT NEOPLASM OF UNSP PART OF UNSP BRONCHUS OR LUNG Qualifiers: Laterality: left Assessment/Plan ANXIETY CONTROL ATIVAN PRN CLEARED FOR ANEURYSM REPAIR TODAY ICU POST OP CHECK LABS
[2017-06-02 10:59] LABS: PLATELET ESTIMATE ADEQUATE
[2017-06-02] MEDS: ACETYLCYSTEINE 20% 200MG/ML 30 ML VIAL *FOR ORAL / INH USE ONLY PO SCH (11:00)
[2017-06-02] MEDS: TIOTROPIUM BROMIDE 18 MCG/INH (DEVICE W/ 5 CAPSULES) IH SCH (11:17)
[2017-06-02] MEDS ORDERED: CEFAZOLIN 1 GM PUSH 1 GM/10 ML DISP.SYRIN IVPUSH ONE ×2 (12:00→19:24)
[2017-06-02] MEDS ORDERED: CEFAZOLIN 1 GM in DEXTROSE 5%-WATER - 100 ML IVPB ONE ×2 (12:00→19:24)
--- NOTE | 2017-06-02 12:03 | PN ---
Progress Note (short form) - Note Progress Note: PULMONARY OFFERS NO COMPLAINTS LYING FLAT NOT ON O2 VSS/AFEBRILE ANICTERIC DIMINISHED BREATH SOUNDS S1S2 IRREGULAR BS+ SOFT NO EDEMA LABS/MEDS/NOTES/CXR REVIEWED AAA Lung Ca s/p LLL lobectomy COPD Atrial Fibrillation - Prednisone 5 mg OD - inhaled bronchodilators - incentive spirometry - Awaiting Evar Jayla ADHIKARI MD Problem List - Problems (1) Abdominal aortic aneurysm (AAA) Code(s): I71.4 - ABDOMINAL AORTIC ANEURYSM, WITHOUT RUPTURE Qualifiers: Presence of rupture: without rupture Qualified Code(s): I71.4 - Abdominal aortic aneurysm, without rupture (2) Melena Code(s): K92.1 - MELENA (3) Atrial fibrillation Code(s): I48.91 - UNSPECIFIED ATRIAL FIBRILLATION Qualifiers: Atrial fibrillation type: persistent Qualified Code(s): I48.1 - Persistent atrial fibrillation (4) COPD (chronic obstructive pulmonary disease) Code(s): J44.9 - CHRONIC OBSTRUCTIVE PULMONARY DISEASE, UNSPECIFIED Qualifiers: Emphysema type: centrilobular (5) Chronic renal disease Code(s): N18.9 - CHRONIC KIDNEY DISEASE, UNSPECIFIED Qualifiers: Chronic kidney disease stage: stage 4 (severe) Qualified Code(s): N18.4 - Chronic kidney disease, stage 4 (severe) (6) Constipation Code(s): K59.00 - CONSTIPATION, UNSPECIFIED
[2017-06-02] MEDS ORDERED: ETOMIDATE 20 MG/10 ML AMPUL IVPUSH ONE (13:31)
[2017-06-02] MEDS ORDERED: fentaNYL CITRATE 250 MCG/5 ML VIAL ONE (13:32)
[2017-06-02] MEDS ORDERED: MIDAZOLAM HCL 2 MG/2 ML SINGLE DOSE VIAL ONE (13:32)
[2017-06-02] MEDS ORDERED: ROCURONIUM BROMIDE 50 MG/5 ML VIAL ONE ×2 (13:32→15:08)
[2017-06-02] MEDS ORDERED: PHENYLEPHRINE HCL 10 MG/1 ML SINGLE DOSE VIAL ONE (13:34)
--- NOTE | 2017-06-02 14:00 | PN ---
Progress Note, Physician History of Present Illness: Pt seen and examined at bedside. She is going to OR for AAA repair. - Current Medication List Current Medications: Active Medications Acetaminophen (Tylenol -) 650 mg PO Q6H PRN PRN Reason: FEVER OR PAIN Last Admin: 05/31/17 05:15 Dose: 650 mg Acetylcysteine (Mucomyst 20 Oral / Inh Use Only*) 1,200 mg PO Q12H [facility] Stop: 06/03/17 10:01 Last Admin: 06/02/17 11:00 Dose: 1,200 mg Albuterol Sulfate (Ventolin Hfa Inhaler -) 2 puff IH Q4H PRN PRN Reason: SHORT OF BREATH/WHEEZING Last Admin: 06/01/17 19:02 Dose: 2 inh Albuterol Sulfate (Ventolin 0.083% Nebulizer Soln -) 1 amp NEB TIDR [facility] Last Admin: 06/02/17 06:49 Dose: 1 amp Diltiazem HCl (Cardizem Cd -) 180 mg PO DAILY [facility] Last Admin: 06/02/17 09:20 Dose: 180 mg Docusate Sodium (Colace -) 100 mg PO TID [facility] Last Admin: 06/02/17 07:06 Dose: Not Given Heparin Sodium (Porcine) (Heparin -) 1,000 unit IVPUSH PRN PRN PRN Reason: Heparin Last Admin: 05/29/17 09:00 Dose: 1,000 unit Heparin Sodium (Porcine) (Heparin -) 5,000 unit IVPUSH PRN PRN PRN Reason: Heparin Last Admin: 05/28/17 15:17 Dose: 5,000 unit Sodium Chloride (Normal Saline -) 1,000 mls @ 75 mls/hr IV ASDIR [facility] Stop: 06/02/17 16:00 Last Admin: 06/02/17 00:07 Dose: 75 mls/hr Cefazolin Sodium (Ancef -) 1 gm in 10 mls @ 120 mls/hr IVPUSH ONCE ONE Stop: 06/02/17 12:04 Lactulose (Cephulac (Oral Use)) 20 gm PO TID [facility] Last Admin: 06/02/17 07:05 Dose: Not Given Lorazepam (Ativan -) 0.5 mg PO TID PRN PRN Reason: ANXIETY Last Admin: 06/01/17 00:05 Dose: 0.5 mg Oxycodone HCl (Roxicodone -) 5 mg PO Q6H PRN PRN Reason: PAIN Prednisone (Deltasone -) 5 mg PO DAILY [facility] Last Admin: 06/02/17 09:20 Dose: 5 mg Tiotropium [place] (Spiriva -) 1 puff IH DAILY [facility] Last Admin: 06/02/17 11:17 Dose: 1 puff - Objective Vital Signs: Vital Signs Temperature 98.1 F 06/02/17 06:20 Pulse Rate 93 H 06/02/17 06:20 Respiratory Rate 18 06/02/17 06:20 Blood Pressure 137/57 06/02/17 06:20 O2 Sat by Pulse Oximetry (%) 96 06/02/17 09:00 Constitutional: Yes: Calm Eyes: Yes: Conjunctiva Clear HENT: Yes: Atraumatic Neck: Yes: Supple Cardiovascular: Yes: S1, S2 Respiratory: Yes: CTA Bilaterally Gastrointestinal: Yes: Normal Bowel Sounds, Soft Genitourinary: Yes: WNL Musculoskeletal: Yes: WNL Extremities: Yes: WNL Edema: No Neurological: Yes: Oriented Psychiatric: Yes: Oriented Labs: CBC, BMP 06/02/17 06:00 06/02/17 06:00 INR, PTT INR 1.08 (0.82-1.09) 05/25/17 14:07 Problem List - Problems (1) Abdominal aortic aneurysm (AAA) Code(s): I71.4 - ABDOMINAL AORTIC ANEURYSM, WITHOUT RUPTURE Qualifiers: Presence of rupture: without rupture Qualified Code(s): I71.4 - Abdominal aortic aneurysm, without rupture (2) Stool guaiac positive Code(s): R19.5 - OTHER FECAL ABNORMALITIES (3) Atrial fibrillation Code(s): I48.91 - UNSPECIFIED ATRIAL FIBRILLATION Qualifiers: Atrial fibrillation type: persistent Qualified Code(s): I48.1 - Persistent atrial fibrillation (4) COPD (chronic obstructive pulmonary disease) Code(s): J44.9 - CHRONIC OBSTRUCTIVE PULMONARY DISEASE, UNSPECIFIED Qualifiers: Emphysema type: centrilobular (5) Chronic renal disease Code(s): N18.9 - CHRONIC KIDNEY DISEASE, UNSPECIFIED Qualifiers: Chronic kidney disease stage: stage 4 (severe) Qualified Code(s): N18.4 - Chronic kidney disease, stage 4 (severe) (6) Pneumothorax Code(s): J93.9 - PNEUMOTHORAX, UNSPECIFIED Qualifiers: Pneumothorax type: postprocedural Qualified Code(s): J95.811 - Postprocedural pneumothorax (7) Tobacco use Code(s): Z72.0 - TOBACCO USE Assessment/Plan Current Medications Generic Name Dose Route Start Last Admin Trade Name Freq PRN Reason Stop Dose Admin Acetaminophen 650 mg 05/25/17 15:19 05/31/17 05:15 Tylenol - PO 650 mg Q6H PRN Administration FEVER OR PAIN Acetylcysteine 1,200 mg 06/01/17 22:00 06/02/17 11:00 Mucomyst 20 Oral / Inh Use Only* PO 06/03/17 10:01 1,200 mg Q12H ANNA Administration Albuterol Sulfate 2 puff 06/01/17 12:26 06/01/17 19:02 Ventolin Hfa Inhaler - IH 2 inh Q4H PRN Administration SHORT OF BREATH/WHEEZING Albuterol Sulfate 1 amp 06/01/17 14:00 06/02/17 06:49 Ventolin 0.083% Nebulizer Soln - NEB 1 amp TIDR ANNA Administration Diltiazem HCl 180 mg 05/26/17 10:00 06/02/17 09:20 Cardizem Cd - PO 180 mg DAILY AN[facility] Administration Docusate Sodium 100 mg 05/31/17 14:00 06/02/17 07:06 Colace - PO Not Given TID ANNA Heparin Sodium (Porcine) 1,000 unit 05/28/17 06:19 05/29/17 09:00 Heparin - IVPUSH 1,000 unit PRN PRN Administration Heparin Heparin Sodium (Porcine) 5,000 unit 05/28/17 06:19 05/28/17 15:17 Heparin - IVPUSH 5,000 unit PRN PRN Administration Heparin Sodium Chloride 1,000 mls @ 75 mls/hr 06/02/17 00:01 06/02/17 00:07 Normal Saline - IV 06/02/17 16:00 75 mls/hr ASDIR ANNA Administration Cefazolin Sodium 1 gm in 10 mls @ 120 mls/hr 06/02/17 12:00 Ancef - IVPUSH 06/02/17 12:04 ONCE ONE Lactulose 20 gm 05/27/17 16:45 06/02/17 07:05 Cephulac (Oral Use) PO Not Given TID ANNA Lorazepam 0.5 mg 05/25/17 15:19 06/01/17 00:05 Ativan - PO 0.5 mg TID PRN Administration ANXIETY Oxycodone HCl 5 mg 05/31/17 17:44 Roxicodone - PO Q6H PRN PAIN Prednisone 5 mg 05/26/17 18:30 06/02/17 09:20 Deltasone - PO 5 mg DAILY [facility] Administration Tiotropium [place] 1 puff 05/30/17 17:15 06/02/17 11:17 Spiriva - IH 1 puff DAILY [facility] Administration 1. CKD with acute component 2. AAA 3. lung cancer 4. HTN 5. a-fib 6. chol 7. hydropneumothorax 8. GI bleed Plan - flower stripper is 2.4 - cont hydration for now - pt going to OR - pt has two more doses of mucomyst - avoid fleet enemas - will follow Dr Shearer
[2017-06-02] MEDS ORDERED: ceFAZolin SODIUM 1 GM VIAL ONE (14:10)
[2017-06-02] MEDS ORDERED: ceFAZolin SODIUM 1 GM VIAL IVPB ONE (14:13)
[2017-06-02] MEDS ORDERED: ONDANSETRON 4 MG/2 ML VIAL IVPUSH PRN (15:33)
[2017-06-02] MEDS ORDERED: LACTATED RINGERS SOLUTION 1,000 ML IV SCH ×2 (15:45→19:24)
[2017-06-02] MEDS ORDERED: GLYCOPYRROLATE 0.2 MG/1 ML VIAL ONE (16:01)
[2017-06-02] MEDS ORDERED: NEOSTIGMINE METHYLSULFATE 0.5 MG/ML - 10 ML MDV ONE (16:01)
[2017-06-02] MEDS ORDERED: POVIDONE-IODINE OINTMENT 10% - 28.4 GM TUBE ONE (16:24)
--- NOTE | 2017-06-02 16:24 | OP ---
Operative Note - Note: Operative Date: 06/02/17 Pre-Operative Diagnosis: AAA Operation: Endovascular repair of AAA with CO2 Findings: 5.9cm AAA Post-Operative Diagnosis: Same as Pre-op Surgeon: Josef Qureshi Control Tower Operator: Brown Pickett Anesthesia: General Estimated Blood Loss (mls): 100 Operative Report Dictated: Yes
[2017-06-02] MEDS ORDERED: HEPARIN NA (PORCINE) 5,000 UNITS/ML 1ML VIAL IVPUSH PRN ×2 (16:27→21:26)
[2017-06-02] MEDS ORDERED: POVIDONE-IODINE OINTMENT 10% - 28.4 GM TUBE TP ONE (16:30)
[2017-06-02] MEDS ORDERED: ALBUTEROL SO4 2.5/IPRATROPIUM 0.5 INH SOL 3 ML VIAL.NEB. NEB PRN (16:53)
[2017-06-02] MEDS ORDERED: LABETALOL HCL 5 MG/1 ML (100MG/20 ML VIAL) IVPUSH ONE (17:00)
--- NOTE | 2017-06-02 18:24 | SURG ---
Surgery Cat Wagon Operator Note Cat Wagon Operator: Brown Pickett PA-C Date of Service: 06/02/17 Diagnosis: Infrarenal AAA Procedure: Endovascular repair of AAA with CO2 I was present for the entirety of the operative procedure. For further detail, please refer to operative report. Visit type - Case Type Case Type: ED Admission
[2017-06-02 18:43] LABS: ARTERIAL BLOOD GAS BASE EXCESS -8.3 meq/l (-2-2); ARTERIAL BLOOD GAS PCO2 44.4 mmHg (35-45)
[2017-06-02 18:49] LABS: ARTERIAL BLD GAS O2 SATURATION 99.6 % (90-98.9); ARTERIAL BLOOD GAS pH 7.24 (7.35-7.45)
[2017-06-02] MEDS ORDERED: dilTIAZem HCL 50 MG/10 ML - 10 ML VIAL IVPUSH ONE (18:59)
[2017-06-02] MEDS ORDERED: dilTIAZem HCL 50 MG/10 ML - 10 ML VIAL IVPUSH PRN ×2 (19:15→19:16)
[2017-06-02 19:58] LABS: HEMATOCRIT 32.3 % (32.4-45.2); HEMOGLOBIN 10.6 GM/dL (10.7-15.3); MCH 30.1 pg (25.7-33.7); MCHC 32.9 g/dl (32.0-36.0); MEAN CELL VOLUME 91.5 fl (80-96); MEAN PLT VOLUME 7.8 fl (7.5-11.1); PLATELET COUNT 293 K/MM3 (134-434); RBC 3.53 M/mm3 (3.60-5.2); RDW 14.6 % (11.6-15.6); WHITE BLOOD COUNT 22.3 K/mm3 (4.0-10.0)
[2017-06-02 20:45] LABS: ALBUMIN 2.4 g/dl (3.4-5.0); ANION GAP 11 (8-16); BLOOD UREA NITROGEN 40 mg/dL (7-18); CALCIUM 8.1 mg/dL (8.5-10.1); CHLORIDE 106 mmol/L (98-107); CO2 20 mmol/L (21-32); CREATININE 2.8 mg/dL (0.55-1.02); GLUCOSE,RANDOM 253 mg/dL (74-106); MAGNESIUM 2.1 mg/dL (1.8-2.4); PHOSPHOROUS 7.9 mg/dL (2.5-4.9); POTASSIUM 5.2 mmol/L (3.5-5.1); SGOT/AST 30 U/L (15-37); SGPT/ALT 32 U/L (12-78); SODIUM 137 mmol/L (136-145)
[2017-06-02 20:46] LABS: ALK PHOS 84 U/L (45-117); BILIRUBIN,TOTAL 0.4 mg/dL (0.2-1.0); TOT PROT 5.8 g/dl (6.4-8.2)
--- NOTE | 2017-06-02 21:40 | CONSULT ---
Consult Consult Specialty:: Pulm/CCM Reason for Consultation:: S/p AAA repair - History of Present Illness Chief Complaint: Bilat HIP pain History of Present Illness: 77 rabia with pmhx of CKD, HTN, smoker, COPD, and lung cancer s/p lobectomy ~ 3months ago c/b a-fib on Lyly who presents to ED with c/o weakness, n/v and dark stools. She is found to have a AAA that has increased in size (5.4 to 5.8cm )during her hospitalization. She is now s/p and EVAR of the AAA. EBL~200cc, ~ 1300cc fluid given. She is transferred to ICU for further management. In ICU rec'd A+O x3 BP 94/61, HR 90's irregular. Afebrile. C/o bilat hip pain. Bilat groin dressing dry and intact. Labs notable for WBC 22 with 95% neuts. She rec'd Kefzol x2 in OR and PACU. Heparin drip started at ~9pm for A-fib. 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 No: Fibromyalgia ENT: No: Allergic Rhinitis Endocrine: Yes: Hyperparathyroidism (Hearing loss) - Past Surgical History Past Surgical History: Yes: Thoracotomy - Alcohol/Substance Use Hx Alcohol Use: No - Smoking History Smoking history: Current every day smoker Have you smoked in the past 12 months: Yes Aproximately how many cigarettes per day: 5 If you are a former smoker, when did you quit?: 1 week ago - Social History History of Recent Travel: No Home Medications - Allergies Allergies/Adverse Reactions: Allergies Allergy/AdvReac Type Severity Reaction Status Date / Time No Known Allergies Allergy Verified 05/25/17 11:50 - Home Medications Home Medications: Ambulatory Orders Lorazepam [Ativan] 0.5 mg PO HS 03/07/17 Acetaminophen [Tylenol .Regular Strength -] 650 mg PO Q4H PRN #0 tablet Budesonide/Formeterol Fumarate [SYMBICORT 160/4.5mcg -] 2 puff IH BID #1 inhaler 03/15/17 Diltiazem Cd [Cardizem Cd -] 180 mg PO DAILY #30 cap 03/15/17 Prednisone [Deltasone -] 40 mg PO DAILY #10 tablet 03/15/17 Apixaban [Eliquis] 2.5 mg PO HS 04/28/17 Family Disease History - Family Disease History Family History: Unremarkable Review of Systems - Review of Systems Constitutional: reports: Weakness Eyes: reports: No Symptoms HENT: reports: No Symptoms Neck: reports: No Symptoms Cardiovascular: reports: No Symptoms Respiratory: reports: No Symptoms Gastrointestinal: reports: Abdominal Pain, Melena Genitourinary: reports: No Symptoms Musculoskeletal: reports: No Symptoms Neurological: reports: No Symptoms Endocrine: reports: No Symptoms Hematology/Lymphatic: reports: No Symptoms Psychiatric: reports: No Symptoms Physical Exam Vital Signs: Vital Signs Temperature 97.6 F 06/02/17 21:02 Pulse Rate 86 06/02/17 21:02 Respiratory Rate 20 06/02/17 21:02 Blood Pressure 83/54 06/02/17 21:02 O2 Sat by Pulse Oximetry (%) 96 06/02/17 21:00 Constitutional: Yes: Well Nourished, No Distress Eyes: Yes: WNL, PERRL HENT: Yes: Atraumatic, Normocephalic Neck: Yes: Supple, Trachea Midline Cardiovascular: Yes: Pulse Irregular, S1, S2 Respiratory: Yes: Regular, CTA Bilaterally, Diminished (diminished bases) Gastrointestinal: Yes: Normal Bowel Sounds, Soft Renal/: Yes: Avery Present Musculoskeletal: Yes: Other (Bilat hip pain) Wound/Incision: Yes: Clean/Dry, Dressing Dry and Intact, Other (Bilat groin insertion sites dry and intact) Neurological: Yes: Alert, Oriented ...Motor Strength: WNL Psychiatric: Yes: Alert, Oriented, Agitated Labs: CBC, BMP 06/02/17 19:15 06/02/17 19:15 CBC,CMP WBC 22.3 K/mm3 (4.0-10.0) H D 06/02/17 19:15 RBC 3.53 M/mm3 (3.60-5.2) L 06/02/17 19:15 Hgb 10.6 GM/dL (10.7-15.3) L 06/02/17 19:15 Hct 32.3 % (32.4-45.2) L 06/02/17 19:15 MCV 91.5 fl (80-96) 06/02/17 19:15 MCH 30.1 pg (25.7-33.7) 06/02/17 19:15 MCHC 32.9 g/dl (32.0-36.0) 06/02/17 19:15 RDW 14.6 % (11.6-15.6) 06/02/17 19:15 Plt Count 293 K/MM3 (134-434) 06/02/17 19:15 MPV 7.8 fl (7.5-11.1) 06/02/17 19:15 Total Counted 100 06/02/17 06:00 Neutrophils % No Result Required. 06/02/17 19:15 Neutrophils % (Manual) 93.0 % (42.8-82.8) H* D 06/02/17 19:15 Band Neutrophils % 3.0 % 06/02/17 19:15 Lymphocytes % No Result Required. 06/02/17 19:15 Lymphocytes % (Manual) 2.0 % (8-40) L D 06/02/17 19:15 Monocytes % 7.2 % (3.8-10.2) 05/25/17 13:15 Monocytes % (Manual) 2 % (3.8-10.2) L 06/02/17 19:15 Eosinophils % 0.6 % (0-4.5) D 05/25/17 13:15 Basophils % 0.3 % (0-2.0) 05/25/17 13:15 Basophils % (Manual) 1.0 % (0-2.0) 06/02/17 06:00 Myelocytes % (Man) 2 % (0-2) 06/02/17 06:00 Platelet Estimate Adequate 06/02/17 19:15 Sodium 137 mmol/L (136-145) 06/02/17 19:15 Potassium 5.2 mmol/L (3.5-5.1) H D 06/02/17 19:15 Chloride 106 mmol/L (98-107) 06/02/17 19:15 Carbon Dioxide 20 mmol/L (21-32) L 06/02/17 19:15 Anion Gap 11 (8-16) 06/02/17 19:15 BUN 40 mg/dL (7-18) H 06/02/17 19:15 Creatinine 2.8 mg/dL (0.55-1.02) H 06/02/17 19:15 Creat Clearance w eGFR 16.47 (>60) 06/02/17 19:15 Random Glucose 253 mg/dL (74-106) H D 06/02/17 19:15 Lactic Acid 1.0 mmol/L (0.4-2.0) 06/02/17 19:15 Calcium 8.1 mg/dL (8.5-10.1) L 06/02/17 19:15 Phosphorus 7.9 mg/dL (2.5-4.9) H D 06/02/17 19:15 Magnesium 2.1 mg/dL (1.8-2.4) D 06/02/17 19:15 Total Bilirubin 0.4 mg/dL (0.2-1.0) D 06/02/17 19:15 AST 30 U/L (15-37) D 06/02/17 19:15 ALT 32 U/L (12-78) D 06/02/17 19:15 Alkaline Phosphatase 84 U/L (45-117) 06/02/17 19:15 B-Natriuretic Peptide 7287.04 pg/ml (5-450) H 05/25/17 13:15 Total Protein 5.8 g/dl (6.4-8.2) L 06/02/17 19:15 Albumin 2.4 g/dl (3.4-5.0) L 06/02/17 19:15 Lipase 319 U/L (73-393) 05/25/17 13:15 Current Medications Acetaminophen (Tylenol -) 650 mg PO Q6H PRN PRN Reason: FEVER OR PAIN Acetaminophen (Ofirmev Injection -) 1,000 mg IVPB Q6H PRN PRN Reason: FEVER OR PAIN Acetylcysteine (Mucomyst 20 Oral / Inh Use Only*) 1,200 mg PO Q12H [facility] Stop: 06/03/17 10:01 Albuterol Sulfate (Ventolin 0.083% Nebulizer Soln -) 1 amp NEB TIDR [facility] Last Admin: 06/02/17 22:36 Dose: Not Given Albuterol Sulfate (Ventolin Hfa Inhaler -) 2 puff IH Q4H PRN PRN Reason: SHORT OF BREATH/WHEEZING Albuterol/Ipratropium (Duoneb -) 1 amp NEB Q4H PRN PRN Reason: SHORTNESS OF BREATH Chlorhexidine Gluconate (Hibiclens For Decolonization -) 1 applic TP HS [facility] Last Admin: 06/02/17 21:55 Dose: 1 applic Diltiazem HCl (Cardizem Injection -) 30 mg IVPUSH Q6H PRN PRN Reason: TACHYCARDIA Last Admin: 06/02/17 19:20 Dose: 30 mg Diltiazem HCl (Cardizem Cd -) 180 mg PO DAILY [facility] Docusate Sodium (Colace -) 100 mg PO TID [facility] Last Admin: 06/02/17 21:56 Dose: Not Given Fentanyl (Sublimaze Injection -) 50 mcg IVPUSH [id number] PRN PRN Reason: PAIN Heparin Sodium (Porcine) (Heparin -) 5,000 unit IVPUSH PRN PRN PRN Reason: Heparin Heparin Sodium (Porcine) (Heparin -) 1,000 unit IVPUSH PRN PRN PRN Reason: Heparin Heparin Sodium/Dextrose (Heparin Infusion -) 25,000 units in 500 mls @ 16 mls/ hr IVPB TITR ANNA; 800 UNITS/HR PRN Reason: Protocol Last Admin: 06/02/17 21:53 Dose: 800 units/hr, 16 mls/hr Lactated Ringer's (Lactated Ringers Solution) 1,000 mls @ 75 mls/hr IV ASDIR [facility] Last Admin: 06/02/17 19:24 Dose: 0 mls Lactulose (Cephulac (Oral Use)) 20 gm PO TID [facility] Last Admin: 06/02/17 21:55 Dose: Not Given Lorazepam (Ativan -) 0.5 mg PO TID PRN PRN Reason: ANXIETY Mupirocin (Bactroban Ointment (For Decolonization) -) 1 applic NS BID [facility] Stop: 06/07/17 21:59 Last Admin: 06/02/17 21:54 Dose: 1 applic Ondansetron HCl (Zofran Injection) 4 mg IVPUSH Q6H PRN PRN Reason: NAUSEA AND/OR VOMITING Oxycodone HCl (Roxicodone -) 5 mg PO Q6H PRN PRN Reason: PAIN Last Admin: 06/02/17 21:55 Dose: 5 mg Prednisone (Deltasone -) 5 mg PO DAILY [facility] Tiotropium [place] (Spiriva -) 1 puff IH DAILY [facility] Vital Signs Period Temp Pulse Resp BP Sys/Sellers Pulse Ox Last 24 Hr 97.6 F-98.5 F 86-148 8-26 83-180/47-122 89-100 ABG Results ABG pH 7.24 (7.35-7.45) L* 06/02/17 18:20 ABG pCO2 at Pt Temp 44.4 mmHg (35-45) 06/02/17 18:20 ABG pO2 at Pt Temp 204.0 mmHg (70-100) H* 06/02/17 18:20 ABG HCO3 18.3 meq/L (22-26) L 06/02/17 18:20 ABG O2 Sat (Measured) 99.6 % (90-98.9) H* 06/02/17 18:20 ABG O2 Content 14.7 % vol (15-22) L 06/02/17 18:20 ABG Base Excess -8.3 meq/l (-2-2) L 06/02/17 18:20 Imaging - Results Chest X-ray: Report Reviewed Cat Scan: Report Reviewed Problem List - Problems (1) Abdominal aortic aneurysm (AAA) Code(s): I71.4 - ABDOMINAL AORTIC ANEURYSM, WITHOUT RUPTURE Qualifiers: Presence of rupture: without rupture Qualified Code(s): I71.4 - Abdominal aortic aneurysm, without rupture (2) Melena Code(s): K92.1 - MELENA (3) Atrial fibrillation Code(s): I48.91 - UNSPECIFIED ATRIAL FIBRILLATION Qualifiers: Atrial fibrillation type: persistent Qualified Code(s): I48.1 - Persistent atrial fibrillation (4) COPD (chronic obstructive pulmonary disease) Code(s): J44.9 - CHRONIC OBSTRUCTIVE PULMONARY DISEASE, UNSPECIFIED Qualifiers: Emphysema type: centrilobular (5) Chronic renal disease Code(s): N18.9 - CHRONIC KIDNEY DISEASE, UNSPECIFIED Qualifiers: Chronic kidney disease stage: stage 4 (severe) Qualified Code(s): N18.4 - Chronic kidney disease, stage 4 (severe) (6) Tobacco use Code(s): Z72.0 - TOBACCO USE Assessment/Plan 77 rabia with pmhx of CKD, HTN, smoker, COPD, and lung cancer s/p lobectomy ~ 3months ago c/b a-fib on Lyly who presents to ED with c/o weakness, n/v and dark stools. She is found to have a AAA that has increased in size (5.4 to 5.8cm )during her hospitalization. She is now s/p a EVAR of the AAA. EBL~200cc, ~ 1300cc fluid given. She is transferred to ICU for further management. Plan: -Post-op management as per surgical team -NC O2 support for O2 sat>92% -ISS -Cont COPD regimen -HD monitoring -Fluid bolus as needed for MAP>60 -Heparin drip for therapeutic PTT for A-fib -Rate control with cardizem or amiodarone if hypotensive -Consider continue empiric antibiotic coverage re leukocytosis -Trend WBC and temps -Monitor CBC for e/o post-op bleeding re heparin infusion -Pain management -Monitor BMP and UOP -Replete electrolytes -GI prophylaxis RON Castro CC time 35mins
[2017-06-02] MEDS: MUPIROCIN 2% TOPICAL OINTMENT FOR DECOLONIZATION NS SCH (21:54)
[2017-06-02] MEDS: CHLORHEXIDINE GLUCONATE 4% CLEANSER FOR DECOLONIZATION TP SCH (21:55)
[2017-06-02] MEDS: oxyCODONE HCL 5 MG TABLET PO PRN (21:55)
[2017-06-02] MEDS ORDERED: ACETYLCYSTEINE 20% 200MG/ML 30 ML VIAL *FOR ORAL / INH USE ONLY PO SCH (22:00)
[2017-06-02 22:25] LABS: PLATELET ESTIMATE ADEQUATE
[2017-06-02] MEDS: ACETAMINOPHEN 1000 MG/100 ML VIAL (NON FORMULARY) IVPB PRN (23:00)
[2017-06-03] MEDS ORDERED: ACETYLCYSTEINE 20% 200MG/ML 4 ML VIAL *FOR ORAL / INH USE ONLY PO SCH ×2 (03:07→10:00)
[2017-06-03] MEDS: oxyCODONE HCL 5 MG TABLET PO PRN ×2 (05:01→17:49)
[2017-06-03] MEDS: ACETAMINOPHEN 1000 MG/100 ML VIAL (NON FORMULARY) IVPB PRN (05:02)
[2017-06-03] MEDS: LACTULOSE 20 GM/30 ML UDC (FOR ORAL USE ONLY) PO SCH ×3 (05:02→21:00)
[2017-06-03] MEDS: DOCUSATE SODIUM 100 MG CAPSULE (FP) PO SCH ×3 (05:02→21:01)
[2017-06-03] MEDS: ALBUTEROL SO4 0.083% IH SOL 2.5 MG/3 ML VIAL.NEB. NEB SCH ×3 (05:05→22:15)
[2017-06-03 06:14] LABS: HEMATOCRIT 26.5 % (32.4-45.2); HEMOGLOBIN 8.9 GM/dL (10.7-15.3); MCH 30.3 pg (25.7-33.7); MCHC 33.6 g/dl (32.0-36.0); MEAN CELL VOLUME 90.5 fl (80-96); MEAN PLT VOLUME 7.6 fl (7.5-11.1); PLATELET COUNT 227 K/MM3 (134-434); RBC 2.94 M/mm3 (3.60-5.2); RDW 14.9 % (11.6-15.6); WHITE BLOOD COUNT 15.8 K/mm3 (4.0-10.0)
[2017-06-03 08:10] LABS: ALBUMIN 2.2 g/dl (3.4-5.0); ALK PHOS 69 U/L (45-117); ANION GAP 11 (8-16); BILIRUBIN,TOTAL 0.2 mg/dL (0.2-1.0); BLOOD UREA NITROGEN 44 mg/dL (7-18); CALCIUM 7.6 mg/dL (8.5-10.1); CHLORIDE 107 mmol/L (98-107); CO2 19 mmol/L (21-32); CREATININE 2.8 mg/dL (0.55-1.02); GLUCOSE,RANDOM 128 mg/dL (74-106); POTASSIUM 4.7 mmol/L (3.5-5.1); SGOT/AST 17 U/L (15-37); SGPT/ALT 26 U/L (12-78); SODIUM 137 mmol/L (136-145)
[2017-06-03] MEDS ORDERED: predniSONE 5 MG TABLET (UD) PO SCH (10:00)
--- NOTE | 2017-06-03 10:11 | PN ---
Progress Note (short form) - Note Progress Note: POD#1 Pt with complaints of b/l hip pain. No CP/SOB/abd pain or nausea. Vital Signs Period Temp Pulse Resp BP Sys/Sellers Pulse Ox Last 24 Hr 97.6 F-98.5 F 77-148 8-26 83-180/47-122 89-100 Avery: clear/yellow urine 300ml GEN: A&0x3 CV: RR, irregular rhythm Lungs: mild expiratory wheezes b/l Abd: soft, non-distended, non-tender Groin: b/l inc c/d/i LE: no calf tenderness or swelling b/l. +2 dp pulses CBC, BMP 06/03/ 05:00 06/03/ 05:00 INR, PTT INR 1.08 (0.82-1.09) 05/25/ 14:07 Laboratory Tests 06/03/ 05:00 PTT (Actin FS) 41.0 H A/P: 77 yo female s/p EVAR, POD#1 with a h/o of CRI/COPD/AFIB Pt treated with iv cardizem last pm, HR improved, resume oral medications this am BUN/Cret remain elevated but at baseline. Avery removed for TOV Diet as tolerated OOB to chair and ambulate with assistance IV heparin until resume oral marily D/w Dr. Qureshi
[2017-06-03] MEDS: TIOTROPIUM BROMIDE 18 MCG/INH (DEVICE W/ 5 CAPSULES) IH SCH (10:39)
[2017-06-03] MEDS: MUPIROCIN 2% TOPICAL OINTMENT FOR DECOLONIZATION NS SCH ×2 (10:40→21:00)
[2017-06-03] MEDS ORDERED: PT OWN MED DRAWER 7, Y5N ONE ×2 (10:50→17:58)
--- NOTE | 2017-06-03 11:27 | PN ---
Progress Note, Physician Chief Complaint: POD #1 ANEURYSM REPAIR AWAKE ALERT C/O CONSTIPATION - Current Medication List Current Medications: Active Medications Acetaminophen (Tylenol -) 650 mg PO Q6H PRN PRN Reason: FEVER OR PAIN Acetaminophen (Ofirmev Injection -) 1,000 mg IVPB Q6H PRN PRN Reason: FEVER OR PAIN Last Admin: 06/03/17 05:02 Dose: 1,000 mg Acetylcysteine (Mucomyst 20 Oral / Inh Use Only*) 1,200 mg PO Q12H [facility] Stop: 06/04/17 10:01 Albuterol Sulfate (Ventolin 0.083% Nebulizer Soln -) 1 amp NEB TIDR [facility] Last Admin: 06/03/17 05:05 Dose: 1 amp Albuterol Sulfate (Ventolin Hfa Inhaler -) 2 puff IH Q4H PRN PRN Reason: SHORT OF BREATH/WHEEZING Albuterol/Ipratropium (Duoneb -) 1 amp NEB Q4H PRN PRN Reason: SHORTNESS OF BREATH Chlorhexidine Gluconate (Hibiclens For Decolonization -) 1 applic TP HS [facility] Last Admin: 06/02/17 21:55 Dose: 1 applic Diltiazem HCl (Cardizem Injection -) 30 mg IVPUSH Q6H PRN PRN Reason: TACHYCARDIA Last Admin: 06/02/17 19:20 Dose: 30 mg Diltiazem HCl (Cardizem Cd -) 180 mg PO DAILY [facility] Last Admin: 06/03/17 10:40 Dose: 180 mg Docusate Sodium (Colace -) 100 mg PO TID [facility] Last Admin: 06/03/17 05:02 Dose: Not Given Heparin Sodium (Porcine) (Heparin -) 5,000 unit IVPUSH PRN PRN PRN Reason: Heparin Heparin Sodium (Porcine) (Heparin -) 1,000 unit IVPUSH PRN PRN PRN Reason: Heparin Heparin Sodium/Dextrose (Heparin Infusion -) 25,000 units in 500 mls @ 16 mls/ hr IVPB TITR ANNA; 800 UNITS/HR PRN Reason: Protocol Last Titration: 06/03/17 07:46 Dose: 900 units/hr, 18 mls/hr Lactulose (Cephulac (Oral Use)) 20 gm PO TID [facility] Last Admin: 06/03/17 05:02 Dose: Not Given Lorazepam (Ativan -) 0.5 mg PO TID PRN PRN Reason: ANXIETY Mupirocin (Bactroban Ointment (For Decolonization) -) 1 applic NS BID [facility] Stop: 06/07/17 21:59 Last Admin: 06/03/17 10:40 Dose: 1 applic Ondansetron HCl (Zofran Injection) 4 mg IVPUSH Q6H PRN PRN Reason: NAUSEA AND/OR VOMITING Oxycodone HCl (Roxicodone -) 5 mg PO Q6H PRN PRN Reason: PAIN Last Admin: 06/03/17 05:01 Dose: 5 mg Prednisone (Deltasone -) 5 mg PO DAILY [facility] Last Admin: 06/03/17 10:51 Dose: 5 mg Tiotropium [place] (Spiriva -) 1 puff IH DAILY [facility] Last Admin: 06/03/17 10:39 Dose: 1 pfu - Objective Vital Signs: Vital Signs Temperature 97.8 F 06/03/17 10:00 Pulse Rate 82 06/03/17 10:00 Respiratory Rate 22 06/03/17 10:00 Blood Pressure 90/54 06/03/17 10:00 O2 Sat by Pulse Oximetry (%) 96 06/02/17 21:00 Constitutional: Yes: Mild Distress Eyes: Yes: WNL HENT: Yes: WNL Neck: Yes: WNL Cardiovascular: Yes: Pulse Irregular Respiratory: Yes: WNL Gastrointestinal: Yes: Tenderness Genitourinary: Yes: WNL Musculoskeletal: Yes: WNL Extremities: Yes: WNL Edema: No Peripheral Pulses WNL: Yes Integumentary: Yes: WNL Wound/Incision: Yes: Clean/Dry Neurological: Yes: WNL ...Motor Strength: WNL Psychiatric: Yes: WNL Labs: CBC, BMP 06/03/17 05:00 06/03/17 05:00 INR, PTT INR 1.08 (0.82-1.09) 05/25/17 14:07 Problem List - Problems (1) Melena Code(s): K92.1 - MELENA (2) Stool guaiac positive Code(s): R19.5 - OTHER FECAL ABNORMALITIES (3) Abdominal aneurysm Code(s): I71.4 - ABDOMINAL AORTIC ANEURYSM, WITHOUT RUPTURE (4) Atrial fibrillation Code(s): I48.91 - UNSPECIFIED ATRIAL FIBRILLATION Qualifiers: Atrial fibrillation type: persistent Qualified Code(s): I48.1 - Persistent atrial fibrillation (5) COPD (chronic obstructive pulmonary disease) Code(s): J44.9 - CHRONIC OBSTRUCTIVE PULMONARY DISEASE, UNSPECIFIED Qualifiers: Emphysema type: centrilobular (6) Chronic renal disease Code(s): N18.9 - CHRONIC KIDNEY DISEASE, UNSPECIFIED Qualifiers: Chronic kidney disease stage: stage 4 (severe) Qualified Code(s): N18.4 - Chronic kidney disease, stage 4 (severe) (7) Constipation Code(s): K59.00 - CONSTIPATION, UNSPECIFIED (8) Lung malignancy Code(s): C34.90 - MALIGNANT NEOPLASM OF UNSP PART OF UNSP BRONCHUS OR LUNG Qualifiers: Laterality: left Assessment/Plan POD # 1 CHECK LABS IN ICU OOB TO CHAIR PT EVAL INCENTIVE SPIROMETRY LACTULOSE PRN
--- NOTE | 2017-06-03 12:24 | PN ---
Progress Note, Physician History of Present Illness: Pt seen and examined at bedside. She had the AAA repaired yesterday. She is in the ICU today. She is awake and alert. She did have a few episodes of hypotension. - Current Medication List Current Medications: Active Medications Acetaminophen (Tylenol -) 650 mg PO Q6H PRN PRN Reason: FEVER OR PAIN Acetaminophen (Ofirmev Injection -) 1,000 mg IVPB Q6H PRN PRN Reason: FEVER OR PAIN Last Admin: 06/03/17 05:02 Dose: 1,000 mg Acetylcysteine (Mucomyst 20 Oral / Inh Use Only*) 1,200 mg PO Q12H ANNA Stop: 06/04/17 10:01 Albuterol Sulfate (Ventolin 0.083% Nebulizer Soln -) 1 amp NEB TIDR ANNA Last Admin: 06/03/17 05:05 Dose: 1 amp Albuterol Sulfate (Ventolin Hfa Inhaler -) 2 puff IH Q4H PRN PRN Reason: SHORT OF BREATH/WHEEZING Albuterol/Ipratropium (Duoneb -) 1 amp NEB Q4H PRN PRN Reason: SHORTNESS OF BREATH Chlorhexidine Gluconate (Hibiclens For Decolonization -) 1 applic TP HS ANNA Last Admin: 06/02/17 21:55 Dose: 1 applic Diltiazem HCl (Cardizem Injection -) 30 mg IVPUSH Q6H PRN PRN Reason: TACHYCARDIA Last Admin: 06/02/17 19:20 Dose: 30 mg Diltiazem HCl (Cardizem Cd -) 180 mg PO DAILY ANNA Last Admin: 06/03/17 10:40 Dose: 180 mg Docusate Sodium (Colace -) 100 mg PO TID ANNA Last Admin: 06/03/17 05:02 Dose: Not Given Heparin Sodium (Porcine) (Heparin -) 5,000 unit IVPUSH PRN PRN PRN Reason: Heparin Heparin Sodium (Porcine) (Heparin -) 1,000 unit IVPUSH PRN PRN PRN Reason: Heparin Heparin Sodium/Dextrose (Heparin Infusion -) 25,000 units in 500 mls @ 16 mls/ hr IVPB TITR ANNA; 800 UNITS/HR PRN Reason: Protocol Last Titration: 06/03/17 07:46 Dose: 900 units/hr, 18 mls/hr Lactulose (Cephulac (Oral Use)) 20 gm PO TID [facility] Last Admin: 06/03/17 05:02 Dose: Not Given Lorazepam (Ativan -) 0.5 mg PO TID PRN PRN Reason: ANXIETY Mupirocin (Bactroban Ointment (For Decolonization) -) 1 applic NS BID [facility] Stop: 06/07/17 21:59 Last Admin: 06/03/17 10:40 Dose: 1 applic Ondansetron HCl (Zofran Injection) 4 mg IVPUSH Q6H PRN PRN Reason: NAUSEA AND/OR VOMITING Oxycodone HCl (Roxicodone -) 5 mg PO Q6H PRN PRN Reason: PAIN Last Admin: 06/03/17 05:01 Dose: 5 mg Prednisone (Deltasone -) 5 mg PO DAILY [facility] Last Admin: 06/03/17 10:51 Dose: 5 mg Tiotropium [place] (Spiriva -) 1 puff IH DAILY [facility] Last Admin: 06/03/17 10:39 Dose: 1 pfu - Objective Vital Signs: Vital Signs Temperature 97.8 F 06/03/17 10:00 Pulse Rate 82 06/03/17 10:00 Respiratory Rate 22 06/03/17 10:00 Blood Pressure 90/54 06/03/17 10:00 O2 Sat by Pulse Oximetry (%) 96 06/02/17 21:00 Constitutional: Yes: Calm Eyes: Yes: Conjunctiva Clear HENT: Yes: Atraumatic Neck: Yes: Supple Cardiovascular: Yes: S1, S2 Respiratory: Yes: CTA Bilaterally Gastrointestinal: Yes: Soft Genitourinary: Yes: WNL Musculoskeletal: Yes: WNL Edema: No Neurological: Yes: Oriented Psychiatric: Yes: Oriented Labs: CBC, BMP 06/03/17 05:00 06/03/17 05:00 INR, PTT INR 1.08 (0.82-1.09) 05/25/17 14:07 - ....Imaging Chest X-ray: Report Reviewed Problem List - Problems (1) Abdominal aortic aneurysm (AAA) Code(s): I71.4 - ABDOMINAL AORTIC ANEURYSM, WITHOUT RUPTURE Qualifiers: Presence of rupture: without rupture Qualified Code(s): I71.4 - Abdominal aortic aneurysm, without rupture (2) Stool guaiac positive Code(s): R19.5 - OTHER FECAL ABNORMALITIES (3) Atrial fibrillation Code(s): I48.91 - UNSPECIFIED ATRIAL FIBRILLATION Qualifiers: Atrial fibrillation type: persistent Qualified Code(s): I48.1 - Persistent atrial fibrillation (4) COPD (chronic obstructive pulmonary disease) Code(s): J44.9 - CHRONIC OBSTRUCTIVE PULMONARY DISEASE, UNSPECIFIED Qualifiers: Emphysema type: centrilobular (5) Chronic renal disease Code(s): N18.9 - CHRONIC KIDNEY DISEASE, UNSPECIFIED Qualifiers: Chronic kidney disease stage: stage 4 (severe) Qualified Code(s): N18.4 - Chronic kidney disease, stage 4 (severe) (6) Pneumothorax Code(s): J93.9 - PNEUMOTHORAX, UNSPECIFIED Qualifiers: Pneumothorax type: postprocedural Qualified Code(s): J95.811 - Postprocedural pneumothorax (7) Tobacco use Code(s): Z72.0 - TOBACCO USE Assessment/Plan Current Medications Generic Name Dose Route Start Last Admin Trade Name Freq PRN Reason Stop Dose Admin Acetaminophen 650 mg 06/02/17 19:24 Tylenol - PO Q6H PRN FEVER OR PAIN Acetaminophen 1,000 mg 06/02/17 22:51 06/03/17 05:02 Ofirmev Injection - IVPB 1,000 mg Q6H PRN Administration FEVER OR PAIN Acetylcysteine 1,200 mg 06/03/17 10:00 Mucomyst 20 Oral / Inh Use Only* PO 06/04/17 10:01 Q12H ANNA Albuterol Sulfate 1 amp 06/02/17 22:00 06/03/17 05:05 Ventolin 0.083% Nebulizer Soln - NEB 1 amp TIDR ANNA Administration Albuterol Sulfate 2 puff 06/02/17 19:24 Ventolin Hfa Inhaler - IH Q4H PRN SHORT OF BREATH/WHEEZING Albuterol/Ipratropium 1 amp 06/02/17 16:53 Duoneb - NEB Q4H PRN SHORTNESS OF BREATH Chlorhexidine Gluconate 1 applic 06/02/17 22:00 06/02/17 21:55 Hibiclens For Decolonization - TP 1 applic HS ANNA Administration Diltiazem HCl 30 mg 06/02/17 19:16 06/02/17 19:20 Cardizem Injection - IVPUSH 30 mg Q6H PRN Administration TACHYCARDIA Diltiazem HCl 180 mg 06/03/17 10:00 06/03/17 10:40 Cardizem Cd - PO 180 mg DAILY ANNA Administration Docusate Sodium 100 mg 06/02/17 22:00 06/03/17 05:02 Colace - PO Not Given TID ANNA Heparin Sodium (Porcine) 5,000 unit 06/02/17 21:26 Heparin - IVPUSH PRN PRN Heparin Heparin Sodium (Porcine) 1,000 unit 06/02/17 16:27 Heparin - IVPUSH PRN PRN Heparin Heparin Sodium/Dextrose 25,000 units in 500 mls @ 16 mls/hr 06/02/17 21:30 07:46 Heparin Infusion - IVPB 900 units/hr TITR ANNA 18 mls/hr Protocol Titration 800 UNITS/HR Lactulose 20 gm 06/02/17 22:00 06/03/17 05:02 Cephulac (Oral Use) PO Not Given TID ANNA Lorazepam 0.5 mg 06/02/17 19:24 Ativan - PO TID PRN ANXIETY Mupirocin 1 applic 06/02/17 22:00 06/03/17 10:40 Bactroban Ointment (For Decolonization) - NS 06/07/17 21:59 1 applic BID ANNA Administration Ondansetron HCl 4 mg 06/02/17 19:24 Zofran Injection IVPUSH Q6H PRN NAUSEA AND/OR VOMITING Oxycodone HCl 5 mg 06/02/17 19:24 06/03/17 05:01 Roxicodone - PO 5 mg Q6H PRN Administration PAIN Prednisone 5 mg 06/03/17 10:00 06/03/17 10:51 Deltasone - PO 5 mg DAILY ANNA Administration Tiotropium [place] 1 puff 06/03/17 10:00 06/03/17 10:39 Spiriva - IH 1 pfu DAILY ANNA Administration 1. CKD with acute component 2. AAA 3. lung cancer 4. HTN 5. a-fib 6. chol 7. hydropneumothorax 8. GI bleed Plan - repair was done with CO2 - can stop fluids - resume renal diet - can stop mucomyst - monitor BP - avoid fleet enemas - will follow Dr Shearer
--- NOTE | 2017-06-03 13:40 | PN ---
Teaching Attending Note Name of Resident: Toby Granados ATTENDING PHYSICIAN STATEMENT I saw and evaluated the patient. I reviewed the resident's note and discussed the case with the resident. I agree with the resident's findings and plan as documented. SUBJECTIVE: Pt seen and examined in the ICU. s/p EVAR without reported complications. Episode of rapid afib overnight. Denies pain. No shortness of breath. OBJECTIVE: Last Vital Signs Temp Pulse Resp BP Pulse Ox 97.8 F 88 22 99/60 100 06/03/17 10:00 06/03/17 12:00 06/03/17 12:00 06/03/17 12:00 06/03/17 09:00 Intake & Output 05/31/17 06/01/17 06/02/17 06/03/17 23:59 23:59 23:59 23:59 Intake Total 2354 186 8082 837 Output Total 471 300 Balance 3525 362 4826 537 Weight 135 lb 3.2 oz 138 lb 138 lb 12.8 oz 149 lb 5 oz Gen: NAD at rest Heart: irregular Lung: decreased breath sounds at the bases Abd: soft, nontender Ext: no edema, dressings clean CBC, BMP 06/03/17 05:00 06/03/17 05:00 Active Medications Acetaminophen (Tylenol -) 650 mg PO Q6H PRN PRN Reason: FEVER OR PAIN Acetaminophen (Ofirmev Injection -) 1,000 mg IVPB Q6H PRN PRN Reason: FEVER OR PAIN Last Admin: 06/03/17 05:02 Dose: 1,000 mg Albuterol Sulfate (Ventolin 0.083% Nebulizer Soln -) 1 amp NEB TIDR ANNA Last Admin: 06/03/17 13:39 Dose: 1 amp Albuterol Sulfate (Ventolin Hfa Inhaler -) 2 puff IH Q4H PRN PRN Reason: SHORT OF BREATH/WHEEZING Albuterol/Ipratropium (Duoneb -) 1 amp NEB Q4H PRN PRN Reason: SHORTNESS OF BREATH Chlorhexidine Gluconate (Hibiclens For Decolonization -) 1 applic TP HS ANNA Last Admin: 06/02/17 21:55 Dose: 1 applic Diltiazem HCl (Cardizem Injection -) 30 mg IVPUSH Q6H PRN PRN Reason: TACHYCARDIA Last Admin: 06/02/17 19:20 Dose: 30 mg Diltiazem HCl (Cardizem Cd -) 180 mg PO DAILY [facility] Last Admin: 06/03/17 10:40 Dose: 180 mg Docusate Sodium (Colace -) 100 mg PO TID [facility] Last Admin: 06/03/17 05:02 Dose: Not Given Heparin Sodium (Porcine) (Heparin -) 5,000 unit IVPUSH PRN PRN PRN Reason: Heparin Heparin Sodium (Porcine) (Heparin -) 1,000 unit IVPUSH PRN PRN PRN Reason: Heparin Heparin Sodium/Dextrose (Heparin Infusion -) 25,000 units in 500 mls @ 16 mls/ hr IVPB TITR ANNA; 800 UNITS/HR PRN Reason: Protocol Last Titration: 06/03/17 07:46 Dose: 900 units/hr, 18 mls/hr Lactulose (Cephulac (Oral Use)) 20 gm PO TID [facility] Last Admin: 06/03/17 05:02 Dose: Not Given Lorazepam (Ativan -) 0.5 mg PO TID PRN PRN Reason: ANXIETY Mupirocin (Bactroban Ointment (For Decolonization) -) 1 applic NS BID [facility] Stop: 06/07/17 21:59 Last Admin: 06/03/17 10:40 Dose: 1 applic Ondansetron HCl (Zofran Injection) 4 mg IVPUSH Q6H PRN PRN Reason: NAUSEA AND/OR VOMITING Oxycodone HCl (Roxicodone -) 5 mg PO Q6H PRN PRN Reason: PAIN Last Admin: 06/03/17 05:01 Dose: 5 mg Prednisone (Deltasone -) 5 mg PO DAILY [facility] Last Admin: 06/03/17 10:51 Dose: 5 mg Tiotropium [place] (Spiriva -) 1 puff IH DAILY [facility] Last Admin: 06/03/17 10:39 Dose: 1 pfu ASSESSMENT AND PLAN: AAA s/p EVAR Lung Ca s/p LLL lobectomy COPD Atrial Fibrillation CKD - monitor H/H - pain control - continue low dose prednisone - inhaled bronchodilators - incentive spirometry - rate control - continue anticoagulation - DVT prophylaxis
--- NOTE | 2017-06-03 13:47 | OP ---
DATE OF OPERATION: 06/02/2017 PREOPERATIVE DIAGNOSIS: A 5.9 abdominal aortic aneurysm. POSTOPERATIVE DIAGNOSIS: A 5.9 abdominal aortic aneurysm. PROCEDURE: Endovascular repair of abdominal aortic aneurysm with CO2. SURGEON: Josef Santamaria DO SENIOR MANAGER MMCOE: CHRISTIAN Tucker BLOOD LOSS: 100 mL INDICATION FOR PROCEDURE: The patient is a 77-year-old female who comes into the hospital with abdominal pain and constipation. She had a noncontrast CT performed showing that she has a 5.9-cm AAA which grew from 5.6 cm 3 months ago. It was decided that we would hydrate and Renal followed her, and her creatinine started to come down to 2.4, but we decided that she would need CO2 so that we do not give her any contrast during her endovascular repair/stent graft placement. She was cleared by the medical team and the cardiology team prior to having the surgery. Patient was consented for the procedure, understanding all risks, benefits, and alternatives, then taken to the operating room. DESCRIPTION OF PROCEDURE: Once in the operating room, was laid on the operating room table in a supine manner, and the patient was then administered general anesthesia. A Avery catheter was then placed. We then went ahead and shaved bilateral groins and prepped and draped the chest, abdomen, and bilateral groins and thighs in a sterile surgical manner. Under ultrasound guidance, we were able to visualize the common femoral arteries in both groins, and they were marked off with a skin marker. A diagonal incision was drawn across them. We then went ahead and, using a 15 blade, opened both groins. Bovie electrocautery used to control hemostasis, and we were able to get down through all the subcutaneous tissue and get down to the femoral sheath. We then dissected out the common femoral artery anteriorly and posteriorly, and Vesseloops were placed proximally and distally. We did that on both sides. In the right common femoral artery, we then went ahead and punctured the right common femoral artery with a micropuncture needle. Micropuncture wire was placed, and an additional 8-Barbadian sheath was placed. We did the same for the left common femoral artery as well. An 8-Barbadian sheath was placed. We then went ahead and placed a 0.035 floppy guidewire up into the aorta from the right side, followed by a catheter, and we then went ahead and placed a pigtail catheter up. We then went ahead and used CO2 and performed a CO2 angiogram of the aneurysm, and we were able to tee off our renal arteries and our bifurcation. We then went ahead and placed a 0.035 floppy guidewire up from the left side with a catheter and exchanged for a Lunderquist wire. We did the same for the right side where a Lunderquist wire was placed as well. We then went ahead and placed the main body up the left side, and a 25 x 14 - 103 bifurcated stent graft system was placed up below the renal arteries and was then deployed. Once deployed, we then went ahead from the right side, and we placed our pigtail up in through the contralateral limb. We then went ahead and spun our pigtail inside the stent graft, and we were inside the stent graft. We then went ahead and placed a Lunderquist wire up through the pigtail. At this point, we then went ahead and removed our 8-Barbadian sheath on the right side and placed a 16-Barbadian sheath. We then went ahead and placed a 16 x 13 x 124 stent graft up. Prior to doing that, we took a retrograde angiogram of the right iliac artery, and we marked off our hypogastric artery. We then placed a 16 x 13 x 124 stent graft up and made sure that we did not cover the hypogastric artery. We then went over to the left side and completed our deployment of our bifurcated stent graft. We then removed the device and placed a 16-Barbadian sheath up. We then shot a retrograde angiogram of the left iliac artery and marked off our hypogastric artery. We then went ahead and deployed a 16 x 13 - 124 extension limb to the stent graft and made sure that we did not cover the left hypogastric artery. We then used a Reliant balloon and ballooned the entire stent graft in place on both sides, including the attachment, including the top of the graft. We then went ahead and used CO2 and shot an angiogram. We then used CO2 again and shot a complete angiogram showing that the graft was patent. There was good runoff, there was no extravasation of contrast, and there was no leak. At this point, the procedure was finished. The entire procedure was done under CO2. We then went ahead and removed the sheath from the right common femoral artery and got proximal and distal control on our artery. We then used 6-0 Prolene double-arm, and we were able to close the artery in a running fashion. Once closed, we opened the distal artery first, then the proximal artery. There was no bleeding. Wound was well irrigated, and Surgicel was placed. We then took out our sheath from the left common femoral artery, and we had proximal and distal control on our artery. We then went ahead and used 6-0 Prolene double-arm and closed the artery in a running fashion. We then opened the distal artery first, then the proximal artery, and there was no bleeding. Wound was well irrigated, and Surgicel was placed. We then went ahead and closed each groin with 2-0 Vicryl and closed the subcutaneous tissue in an interrupted manner and closed the skin with skin olayinka. Next, 4 x 4, Tegaderms were placed. The patient tolerated the procedure with no complication. TOTAL BLOOD LOSS: 100 mL Patient had good palpable pulses after the procedure. Patient was transferred to PACU in stable condition. JOSEF SANTAMARIA DO NP/[id number]
--- NOTE | 2017-06-03 14:03 | PN ---
Progress Note (short form) - Note Progress Note: Anesthesia POD#1 S/P Endovascular AAA repair VSS,Heart rate is under control.Awake and alert. No pain issues,no N/V. No complication to anesthesia seen. Dolores Lunsford MD.
[2017-06-03] MEDS: ACETAMINOPHEN 325 MG TABLET (FP) PO PRN (17:51)
[2017-06-03] MEDS: HEPARIN INFUSION - 25,000 UNITS/500 ML INFUS.BAG IVPB SCH (17:56)
[2017-06-03] MEDS: HEPARIN NA (PORCINE) 5,000 UNITS/ML 1ML VIAL IVPUSH PRN (18:00)
[2017-06-03] MEDS: RANITIDINE HCL 150 MG TABLET (FP) PO SCH (18:27)
[2017-06-03] MEDS: CHLORHEXIDINE GLUCONATE 4% CLEANSER FOR DECOLONIZATION TP SCH (21:02)
[2017-06-03] MEDS: ALBUTEROL SO4 18 GM HFA INHALER IH PRN (21:05)
--- NOTE | 2017-06-04 02:10 | PN ---
Physical Exam: SUBJECTIVE: The patient is a 77 F with a PMH of CKD, HTN, COPD, smoker, and lung ca s/p lobectomy. She was found to have a AA that has increased in size from 5.4 to 5.8cm. She is s/p EVAR of the AAA. Overnight she had no acute events and denies any complaints. She is hemodynamically stable. OBJECTIVE: Vital Signs Period Temp Pulse Resp BP Sys/Sellers Pulse Ox Last 24 Hr 97.8 F-98.9 F 79-106 11-22 90-121/51-78 96-100 GENERAL: The patient is awake, alert, and fully oriented, in no acute distress. HEAD: Normal with no signs of trauma. EYES: PERRL, extraocular movements intact, sclera anicteric, conjunctiva clear. No ptosis. NECK: Trachea midline, full range of motion, supple. LUNGS: Breath sounds equal, clear to auscultation bilaterally, no wheezes, no crackles, no accessory muscle use. HEART: Regular rate and rhythm, S1, S2 without murmur, rub or gallop. ABDOMEN: Soft, nontender, nondistended, normoactive bowel sounds, no guarding, no rebound, no hepatosplenomegaly, no masses. EXTREMITIES: 2+ pulses, warm, well-perfused, no edema. Scars healing well. NEUROLOGICAL: Cranial nerves II through XII grossly intact. Normal speech, gait not observed. PSYCH: Normal mood, normal affect. SKIN: Warm, dry, normal turgor, no rashes or lesions noted Laboratory Results - last 24 hr 06/03/17 06/03/17 06/03/17 05:00 05:00 05:00 WBC 15.8 H RBC 2.94 L Hgb 8.9 L D Hct 26.5 L D MCV 90.5 MCH 30.3 MCHC 33.6 RDW 14.9 Plt Count 227 D MPV 7.6 PTT (Actin FS) 41.0 H Sodium 137 Potassium 4.7 Chloride 107 Carbon Dioxide 19 L Anion Gap 11 BUN 44 H Creatinine 2.8 H Creat Clearance w eGFR 16.47 Random Glucose 128 H D Calcium 7.6 L Total Bilirubin 0.2 D AST 17 D ALT 26 Alkaline Phosphatase 69 Total Protein 5.0 L Albumin 2.2 L 06/03/17 06/04/17 14:15 00:00 WBC RBC Hgb Hct MCV MCH MCHC RDW Plt Count MPV PTT (Actin FS) 42.0 H 50.2 H Sodium Potassium Chloride Carbon Dioxide Anion Gap BUN Creatinine Creat Clearance w eGFR Random Glucose Calcium Total Bilirubin AST ALT Alkaline Phosphatase Total Protein Albumin Active Medications Generic Name Dose Route Start Last Admin Trade Name Freq PRN Reason Stop Dose Admin Acetaminophen 650 mg 06/02/17 19:24 06/03/17 17:51 Tylenol - PO 650 mg Q6H PRN Administration FEVER OR PAIN Acetaminophen 1,000 mg 06/02/17 22:51 06/03/17 05:02 Ofirmev Injection - IVPB 1,000 mg Q6H PRN Administration FEVER OR PAIN Albuterol Sulfate 1 amp 06/02/17 22:00 06/03/17 22:15 Ventolin 0.083% Nebulizer Soln - NEB 1 amp TIDR ANNA Administration Albuterol Sulfate 2 puff 06/02/17 19:24 06/03/17 21:05 Ventolin Hfa Inhaler - IH 2 puff Q4H PRN Administration SHORT OF BREATH/WHEEZING Albuterol/Ipratropium 1 amp 06/02/17 16:53 Duoneb - NEB Q4H PRN SHORTNESS OF BREATH Chlorhexidine Gluconate 1 applic 06/02/17 22:00 06/03/17 21:02 Hibiclens For Decolonization - TP Not Given HS ANNA Diltiazem HCl 30 mg 06/02/17 19:16 06/02/17 19:20 Cardizem Injection - IVPUSH 30 mg Q6H PRN Administration TACHYCARDIA Diltiazem HCl 180 mg 06/03/17 10:00 06/03/17 10:40 Cardizem Cd - PO 180 mg DAILY ANNA Administration Docusate Sodium 100 mg 06/02/17 22:00 06/03/17 21:01 Colace - PO Not Given TID ANNA Heparin Sodium (Porcine) 5,000 unit 06/02/17 21:26 Heparin - IVPUSH PRN PRN Heparin Heparin Sodium (Porcine) 1,000 unit 06/02/17 16:27 06/03/17 18:00 Heparin - IVPUSH 1,000 unit PRN PRN Administration Heparin Heparin Sodium/Dextrose 25,000 units in 500 mls @ 16 mls/hr 06/02/17 21:30 17:56 Heparin Infusion - IVPB 1,000 units/hr TITR ANNA 20 mls/hr Protocol Administration 800 UNITS/HR Lactulose 20 gm 06/02/17 22:00 06/03/17 21:00 Cephulac (Oral Use) PO 20 gm TID ANNA Administration Lorazepam 0.5 mg 06/02/17 19:24 Ativan - PO TID PRN ANXIETY Mupirocin 1 applic 06/02/17 22:00 06/03/17 21:00 Bactroban Ointment (For Decolonization) - NS 06/07/17 21:59 Not Given BID ANNA Ondansetron HCl 4 mg 06/02/17 19:24 Zofran Injection IVPUSH Q6H PRN NAUSEA AND/OR VOMITING Oxycodone HCl 5 mg 06/02/17 19:24 06/03/17 17:49 Roxicodone - PO 5 mg Q6H PRN Administration PAIN Prednisone 5 mg 06/03/17 10:00 06/03/17 10:51 Deltasone - PO 5 mg DAILY ANNA Administration Ranitidine HCl 300 mg 06/03/17 18:30 06/03/17 18:27 Zantac - PO 300 mg DAILY@1800 ANNA Administration Tiotropium [place] 1 puff 06/03/17 10:00 06/03/17 10:39 Spiriva - IH 1 pfu DAILY ANNA Administration ASSESSMENT/PLAN: The patient is a 77F with an extensive PMH who is s/p EVAR of the AAA. She is recovering well. Neuro: - A&O x 3 - At baseline CV: S/p AAA repair - Continue HTN meds - Cardizem 30mg q6 - Heparin drip Pulm: COPD and Lung ca - Prednisone 5mg qD - Spiriva 1 puff daily - Ventolin neb TID PPX: - Heparin FEN (Fluids, electrolytes, nutrition): - Per surgery recs Dispo: - T/f to med/surg Visit type - Emergency Visit Emergency Visit: Yes ED Registration Date: 05/25/17 Care time: The patient presented to the Emergency Department on the above date and was hospitalized for further evaluation of their emergent condition. - New Patient This patient is new to me today: Yes Date on this admission: 06/06/17 - Critical Care Critical Care patient: Yes Total Critical Care Time (in minutes): 35 Critical Care Statement: The care of this patient involved high complexity decision making to prevent further life threatening deterioration of the patient 's condition and/or to evaluate & treat vital organ system(s) failure or risk of failure.
[2017-06-04] MEDS: ACETAMINOPHEN 325 MG TABLET (FP) PO PRN ×2 (02:34→10:08)
[2017-06-04] MEDS: oxyCODONE HCL 5 MG TABLET PO PRN ×2 (02:35→10:07)
[2017-06-04] MEDS: HEPARIN INFUSION - 25,000 UNITS/500 ML INFUS.BAG IVPB SCH ×2 (04:24→09:30)
[2017-06-04] MEDS: DOCUSATE SODIUM 100 MG CAPSULE (FP) PO SCH ×4 (06:24→22:00)
[2017-06-04] MEDS: LACTULOSE 20 GM/30 ML UDC (FOR ORAL USE ONLY) PO SCH ×3 (06:24→21:17)
[2017-06-04] MEDS: ALBUTEROL SO4 0.083% IH SOL 2.5 MG/3 ML VIAL.NEB. NEB SCH (06:40)
[2017-06-04 07:37] LABS: HEMATOCRIT 27.5 % (32.4-45.2); HEMOGLOBIN 9.2 GM/dL (10.7-15.3); MCH 30.3 pg (25.7-33.7); MCHC 33.4 g/dl (32.0-36.0); MEAN CELL VOLUME 90.8 fl (80-96); MEAN PLT VOLUME 7.5 fl (7.5-11.1); PLATELET COUNT 214 K/MM3 (134-434); RBC 3.03 M/mm3 (3.60-5.2); RDW 14.9 % (11.6-15.6); WHITE BLOOD COUNT 12.6 K/mm3 (4.0-10.0)
[2017-06-04 08:02] LABS: ALBUMIN 2.4 g/dl (3.4-5.0); ALK PHOS 74 U/L (45-117); ANION GAP 14 (8-16); BILIRUBIN,TOTAL 0.2 mg/dL (0.2-1.0); BLOOD UREA NITROGEN 53 mg/dL (7-18); CALCIUM 8.3 mg/dL (8.5-10.1); CHLORIDE 103 mmol/L (98-107); CO2 22 mmol/L (21-32); CREATININE 3.4 mg/dL (0.55-1.02); GLUCOSE,RANDOM 96 mg/dL (74-106); PHOSPHOROUS 5.8 mg/dL (2.5-4.9); POTASSIUM 4.4 mmol/L (3.5-5.1); SGOT/AST 12 U/L (15-37); SGPT/ALT 12 U/L (12-78); SODIUM 139 mmol/L (136-145); TOT PROT 5.5 g/dl (6.4-8.2)
--- NOTE | 2017-06-04 09:42 | PN ---
Progress Note, Physician Chief Complaint: EVENTS REVIEWED SOB COUGHING OVERNIGHT GIVEN NEBS NOW ANXIOUS - Current Medication List Current Medications: Active Medications Acetaminophen (Tylenol -) 650 mg PO Q6H PRN PRN Reason: FEVER OR PAIN Last Admin: 06/04/17 02:34 Dose: 650 mg Acetaminophen (Ofirmev Injection -) 1,000 mg IVPB Q6H PRN PRN Reason: FEVER OR PAIN Last Admin: 06/03/17 05:02 Dose: 1,000 mg Albuterol Sulfate (Ventolin Hfa Inhaler -) 2 puff IH Q4H PRN PRN Reason: SHORT OF BREATH/WHEEZING Last Admin: 06/03/17 21:05 Dose: 2 puff Chlorhexidine Gluconate (Hibiclens For Decolonization -) 1 applic TP HS ANNA Last Admin: 06/03/17 21:02 Dose: Not Given Diltiazem HCl (Cardizem Injection -) 30 mg IVPUSH Q6H PRN PRN Reason: TACHYCARDIA Last Admin: 06/02/17 19:20 Dose: 30 mg Diltiazem HCl (Cardizem Cd -) 180 mg PO DAILY ANNA Last Admin: 06/03/17 10:40 Dose: 180 mg Docusate Sodium (Colace -) 100 mg PO TID ANNA Last Admin: 06/04/17 06:24 Dose: Not Given Heparin Sodium (Porcine) (Heparin -) 5,000 unit IVPUSH PRN PRN PRN Reason: Heparin Heparin Sodium (Porcine) (Heparin -) 1,000 unit IVPUSH PRN PRN PRN Reason: Heparin Last Admin: 06/03/17 18:00 Dose: 1,000 unit Heparin Sodium/Dextrose (Heparin Infusion -) 25,000 units in 500 mls @ 16 mls/ hr IVPB TITR ANNA; 800 UNITS/HR PRN Reason: Protocol Last Admin: 06/04/17 04:24 Dose: 1,000 units/hr, 20 mls/hr Lactulose (Cephulac (Oral Use)) 20 gm PO TID ANNA Last Admin: 06/04/17 06:24 Dose: 20 gm Lorazepam (Ativan -) 0.5 mg PO TID PRN PRN Reason: ANXIETY Methylprednisolone Sodium Succinate (Solu-Medrol -) 40 mg IVPUSH Q8H-IV ANNA Mupirocin (Bactroban Ointment (For Decolonization) -) 1 applic NS BID [facility] Stop: 06/07/17 21:59 Last Admin: 06/03/17 21:00 Dose: Not Given Ondansetron HCl (Zofran Injection) 4 mg IVPUSH Q6H PRN PRN Reason: NAUSEA AND/OR VOMITING Oxycodone HCl (Roxicodone -) 5 mg PO Q6H PRN PRN Reason: PAIN Last Admin: 06/04/17 02:35 Dose: 5 mg Ranitidine HCl (Zantac -) 300 mg PO DAILY@1800 [facility] Last Admin: 06/03/17 18:27 Dose: 300 mg Tiotropium [place] (Spiriva -) 1 puff IH DAILY [facility] Last Admin: 06/03/17 10:39 Dose: 1 pfu - Objective Vital Signs: Vital Signs Temperature 99.0 F 06/04/17 06:00 Pulse Rate 104 H 06/04/17 06:00 Respiratory Rate 20 06/04/17 06:00 Blood Pressure 106/57 06/04/17 06:00 O2 Sat by Pulse Oximetry (%) 96 06/03/17 21:00 Constitutional: Yes: Mild Distress Eyes: Yes: WNL HENT: Yes: WNL Neck: Yes: WNL Cardiovascular: Yes: Pulse Irregular Respiratory: Yes: On Nasal O2, Rhonchi Gastrointestinal: Yes: WNL Genitourinary: Yes: WNL Musculoskeletal: Yes: WNL, Muscle Weakness Extremities: Yes: WNL Edema: No Peripheral Pulses WNL: Yes Integumentary: Yes: WNL Wound/Incision: Yes: Clean/Dry Neurological: Yes: WNL ...Motor Strength: WNL Psychiatric: Yes: WNL Labs: CBC, BMP 06/04/17 05:05 06/04/17 05:05 INR, PTT INR 1.08 (0.82-1.09) 05/25/17 14:07 Problem List - Problems (1) Melena Code(s): K92.1 - MELENA (2) Stool guaiac positive Code(s): R19.5 - OTHER FECAL ABNORMALITIES (3) Abdominal aneurysm Code(s): I71.4 - ABDOMINAL AORTIC ANEURYSM, WITHOUT RUPTURE (4) Atrial fibrillation Code(s): I48.91 - UNSPECIFIED ATRIAL FIBRILLATION Qualifiers: Atrial fibrillation type: persistent Qualified Code(s): I48.1 - Persistent atrial fibrillation (5) COPD (chronic obstructive pulmonary disease) Code(s): J44.9 - CHRONIC OBSTRUCTIVE PULMONARY DISEASE, UNSPECIFIED Qualifiers: Emphysema type: centrilobular (6) Chronic renal disease Code(s): N18.9 - CHRONIC KIDNEY DISEASE, UNSPECIFIED Qualifiers: Chronic kidney disease stage: stage 4 (severe) Qualified Code(s): N18.4 - Chronic kidney disease, stage 4 (severe) (7) Constipation Code(s): K59.00 - CONSTIPATION, UNSPECIFIED (8) Lung malignancy Code(s): C34.90 - MALIGNANT NEOPLASM OF UNSP PART OF UNSP BRONCHUS OR LUNG Qualifiers: Laterality: left Assessment/Plan POD # 2 CHECK LABS CREATININE INCREASED RENAL F/U COUGH/WHEEZES CHECK CXR SOLUMEDROL IV CHANGE ALBUTEROL TO BROVANA FOR ANXIETY AND TREMORS ATIVAN RENEWED IN ICU OOB TO CHAIR PT EVAL INCENTIVE SPIROMETRY LACTULOSE PRN
[2017-06-04] MEDS: MUPIROCIN 2% TOPICAL OINTMENT FOR DECOLONIZATION NS SCH ×2 (10:00→22:49)
[2017-06-04] MEDS: TIOTROPIUM BROMIDE 18 MCG/INH (DEVICE W/ 5 CAPSULES) IH SCH (10:03)
[2017-06-04] MEDS: methylPREDNISolone NA SUCC 40 MG/1 ML VIAL IVPUSH SCH ×2 (10:03→17:27)
[2017-06-04] MEDS: HEPARIN NA (PORCINE) 5,000 UNITS/ML 1ML VIAL IVPUSH PRN (10:06)
[2017-06-04] MEDS: ARFORMOTEROL TARTRATE 15 MCG/2 ML VIAL NEB SCH ×2 (10:15→21:50)
[2017-06-04 11:10] LABS: ACANTHOCYTES 0; ANISOCYTOSIS 0; HELMET CELLS 0; HOWELL-JOLLY BODIES 0; MACROCYTOSIS 0; OVALOCYTE 0; PLATELET ESTIMATE NORMAL; SICKELED CELLS 0; TARGET CELLS 0; TEAR DROP CELLS 0; TOXIC GRANULATION 0
--- NOTE | 2017-06-04 11:44 | PN ---
Progress Note (short form) - Note Progress Note: Vascular Surgery Patient seen and examined at bedside No complaints Denies Bowel movement poor appetite Still has pain requiring pain medication for control Vital Signs Period Temp Pulse Resp BP Sys/Sellers Pulse Ox Last 24 Hr 98.0 F-99.0 F 67-112 20-24 99-140/57-88 96-98 GEN: A&0x3 CV: RR, irregular rhythm Lungs: crackles at bases bilaterally Abd: soft NT/ND bilateral groin staple line C/D/I LE: no calf tenderness or swelling b/l. +2 dp pulses POD #2 s/p EVAAR dressng changes to groins bilaterally daily with bacitracin to staple line pain control PRN Continue GI PPx Continue DVT PPx continue Hep gtt A. fib rate control Medical management per primary medical team Pulm for wheezing HR improved Cr worsened renal on board case discussed with attending Dr. Qureshi
--- NOTE | 2017-06-04 11:58 | PN ---
Progress Note, Physician History of Present Illness: pulmonary alert,feeling better,had incresed sob last night,cough,bronchospasm,responded well to inhaled bronchodilators,steroids - Current Medication List Current Medications: Active Medications Acetaminophen (Tylenol -) 650 mg PO Q6H PRN PRN Reason: FEVER OR PAIN Last Admin: 06/04/17 10:08 Dose: 650 mg Acetaminophen (Ofirmev Injection -) 1,000 mg IVPB Q6H PRN PRN Reason: FEVER OR PAIN Last Admin: 06/03/17 05:02 Dose: 1,000 mg Albuterol Sulfate (Ventolin Hfa Inhaler -) 2 puff IH Q4H PRN PRN Reason: SHORT OF BREATH/WHEEZING Last Admin: 06/03/17 21:05 Dose: 2 puff Arformoterol Tartrate (Brovana (Restricted To Pulmonology/Resp) -) 1 amp NEB BID [facility] [place] Last Admin: 06/04/17 10:15 Dose: 1 amp Chlorhexidine Gluconate (Hibiclens For Decolonization -) 1 applic TP HS [facility] [place] Last Admin: 06/03/17 21:02 Dose: Not Given Diltiazem HCl (Cardizem Injection -) 30 mg IVPUSH Q6H PRN PRN Reason: TACHYCARDIA Last Admin: 06/02/17 19:20 Dose: 30 mg Diltiazem HCl (Cardizem Cd -) 180 mg PO DAILY [facility] Last Admin: 06/04/17 10:03 Dose: 180 mg Docusate Sodium (Colace -) 100 mg PO TID [facility] [place] Last Admin: 06/04/17 06:24 Dose: Not Given Heparin Sodium (Porcine) (Heparin -) 5,000 unit IVPUSH PRN PRN PRN Reason: Heparin Heparin Sodium (Porcine) (Heparin -) 1,000 unit IVPUSH PRN PRN PRN Reason: Heparin Last Admin: 06/04/17 10:06 Dose: 1,000 unit Heparin Sodium/Dextrose (Heparin Infusion -) 25,000 units in 500 mls @ 16 mls/ hr IVPB TITR ANNA; 800 UNITS/HR PRN Reason: Protocol Last Admin: 06/04/17 09:30 Dose: 1,100 units/hr, 22 mls/hr Lactulose (Cephulac (Oral Use)) 20 gm PO TID [facility] [place] Last Admin: 06/04/17 06:24 Dose: 20 gm Lorazepam (Ativan -) 0.5 mg PO TID PRN PRN Reason: ANXIETY Methylprednisolone Sodium Succinate (Solu-Medrol -) 40 mg IVPUSH Q8H-IV [facility] [place] Last Admin: 06/04/17 10:03 Dose: 40 mg Mupirocin (Bactroban Ointment (For Decolonization) -) 1 applic NS BID [facility] Stop: 06/07/17 21:59 Last Admin: 06/03/17 21:00 Dose: Not Given Ondansetron HCl (Zofran Injection) 4 mg IVPUSH Q6H PRN PRN Reason: NAUSEA AND/OR VOMITING Oxycodone HCl (Roxicodone -) 5 mg PO Q6H PRN PRN Reason: PAIN Last Admin: 06/04/17 10:07 Dose: 5 mg Ranitidine HCl (Zantac -) 300 mg PO DAILY@1800 [facility] [place] Last Admin: 06/03/17 18:27 Dose: 300 mg Tiotropium [place] (Spiriva -) 1 puff IH DAILY [facility] Last Admin: 06/04/17 10:03 Dose: 1 pfu - Objective Vital Signs: Vital Signs Temperature 98.0 F 06/04/17 10:00 Pulse Rate 67 06/04/17 10:54 Respiratory Rate 24 06/04/17 10:00 Blood Pressure 140/88 06/04/17 10:00 O2 Sat by Pulse Oximetry (%) 96 06/04/17 10:54 Constitutional: Yes: Well Nourished, Calm Eyes: Yes: WNL HENT: Yes: WNL Neck: Yes: WNL Cardiovascular: Yes: Pulse Irregular, S1, S2 Respiratory: Yes: Rales (bibasilar crackles) Gastrointestinal: Yes: Normal Bowel Sounds, Soft Extremities: Yes: WNL Edema: No Labs: CBC, BMP 06/04/17 05:05 06/04/17 05:05 INR, PTT INR 1.08 (0.82-1.09) 05/25/17 14:07 - ....Imaging Chest X-ray: Report Reviewed, Image Reviewed (LLL effusion/atelectasis) Assessment/Plan A/P AAA S/P EVAR Lung Ca s/p LLL lobectomy COPD Atrial Fibrillation Respiratory distress - iv steroids - inhaled bronchodilators - incentive spirometry - DVT prophylaxis - f/u chest x-ray am - strict I+Os DR CRUZ
[2017-06-04] MEDS: BACITRACIN 15 GM TUBE TOPICAL OINTMENT TP SCH (13:39)
--- NOTE | 2017-06-04 15:23 | PN ---
Progress Note, Physician History of Present Illness: Pt seen and examined at bedside. She is awake and alert. She had shortness of breath last night. - Current Medication List Current Medications: Active Medications Acetaminophen (Tylenol -) 650 mg PO Q6H PRN PRN Reason: FEVER OR PAIN Last Admin: 06/04/17 10:08 Dose: 650 mg Acetaminophen (Ofirmev Injection -) 1,000 mg IVPB Q6H PRN PRN Reason: FEVER OR PAIN Last Admin: 06/03/17 05:02 Dose: 1,000 mg Albuterol Sulfate (Ventolin Hfa Inhaler -) 2 puff IH Q4H PRN PRN Reason: SHORT OF BREATH/WHEEZING Last Admin: 06/03/17 21:05 Dose: 2 puff Arformoterol Tartrate (Brovana (Restricted To Pulmonology/Resp) -) 1 amp NEB BID [facility] Last Admin: 06/04/17 10:15 Dose: 1 amp Bacitracin (Bacitracin -) 1 applic TP DAILY [facility] Last Admin: 06/04/17 13:39 Dose: 1 applic Chlorhexidine Gluconate (Hibiclens For Decolonization -) 1 applic TP HS [facility] Last Admin: 06/03/17 21:02 Dose: Not Given Diltiazem HCl (Cardizem Injection -) 30 mg IVPUSH Q6H PRN PRN Reason: TACHYCARDIA Last Admin: 06/02/17 19:20 Dose: 30 mg Diltiazem HCl (Cardizem Cd -) 180 mg PO DAILY ANNA Last Admin: 06/04/17 10:03 Dose: 180 mg Docusate Sodium (Colace -) 100 mg PO TID [facility] Last Admin: 06/04/17 13:40 Dose: Not Given Heparin Sodium (Porcine) (Heparin -) 5,000 unit IVPUSH PRN PRN PRN Reason: Heparin Heparin Sodium (Porcine) (Heparin -) 1,000 unit IVPUSH PRN PRN PRN Reason: Heparin Last Admin: 06/04/17 10:06 Dose: 1,000 unit Heparin Sodium/Dextrose (Heparin Infusion -) 25,000 units in 500 mls @ 16 mls/ hr IVPB TITR ANNA; 800 UNITS/HR PRN Reason: Protocol Last Admin: 06/04/17 09:30 Dose: 1,100 units/hr, 22 mls/hr Lactulose (Cephulac (Oral Use)) 20 gm PO TID [facility] Last Admin: 06/04/17 13:39 Dose: 20 gm Lorazepam (Ativan -) 0.5 mg PO TID PRN PRN Reason: ANXIETY Methylprednisolone Sodium Succinate (Solu-Medrol -) 40 mg IVPUSH Q8H-IV [facility] Last Admin: 06/04/17 10:03 Dose: 40 mg Mupirocin (Bactroban Ointment (For Decolonization) -) 1 applic NS BID [facility] Stop: 06/07/17 21:59 Last Admin: 06/04/17 10:00 Dose: Not Given Ondansetron HCl (Zofran Injection) 4 mg IVPUSH Q6H PRN PRN Reason: NAUSEA AND/OR VOMITING Oxycodone HCl (Roxicodone -) 5 mg PO Q6H PRN PRN Reason: PAIN Last Admin: 06/04/17 10:07 Dose: 5 mg Ranitidine HCl (Zantac -) 300 mg PO DAILY@1800 [facility] Last Admin: 06/03/17 18:27 Dose: 300 mg Tiotropium [place] (Spiriva -) 1 puff IH DAILY [facility] Last Admin: 06/04/17 10:03 Dose: 1 pfu - Objective Vital Signs: Vital Signs Temperature 99.5 F 06/04/17 14:00 Pulse Rate 102 H 06/04/17 14:00 Respiratory Rate 20 06/04/17 14:00 Blood Pressure 103/70 06/04/17 14:00 O2 Sat by Pulse Oximetry (%) 96 06/04/17 10:54 Constitutional: Yes: Calm Eyes: Yes: Conjunctiva Clear HENT: Yes: Atraumatic Cardiovascular: Yes: S1, S2 Respiratory: Yes: On Nasal O2, Wheezes Gastrointestinal: Yes: Soft Genitourinary: Yes: WNL Musculoskeletal: Yes: WNL Edema: No Neurological: Yes: Oriented Psychiatric: Yes: Oriented Labs: CBC, BMP 06/04/17 05:05 06/04/17 05:05 INR, PTT INR 1.08 (0.82-1.09) 05/25/17 14:07 Problem List - Problems (1) Abdominal aortic aneurysm (AAA) Code(s): I71.4 - ABDOMINAL AORTIC ANEURYSM, WITHOUT RUPTURE Qualifiers: Presence of rupture: without rupture Qualified Code(s): I71.4 - Abdominal aortic aneurysm, without rupture (2) Stool guaiac positive Code(s): R19.5 - OTHER FECAL ABNORMALITIES (3) Atrial fibrillation Code(s): I48.91 - UNSPECIFIED ATRIAL FIBRILLATION Qualifiers: Atrial fibrillation type: persistent Qualified Code(s): I48.1 - Persistent atrial fibrillation (4) COPD (chronic obstructive pulmonary disease) Code(s): J44.9 - CHRONIC OBSTRUCTIVE PULMONARY DISEASE, UNSPECIFIED Qualifiers: Emphysema type: centrilobular (5) Chronic renal disease Code(s): N18.9 - CHRONIC KIDNEY DISEASE, UNSPECIFIED Qualifiers: Chronic kidney disease stage: stage 4 (severe) Qualified Code(s): N18.4 - Chronic kidney disease, stage 4 (severe) (6) Pneumothorax Code(s): J93.9 - PNEUMOTHORAX, UNSPECIFIED Qualifiers: Pneumothorax type: postprocedural Qualified Code(s): J95.811 - Postprocedural pneumothorax (7) Tobacco use Code(s): Z72.0 - TOBACCO USE Assessment/Plan Current Medications Generic Name Dose Route Start Last Admin Trade Name Freq PRN Reason Stop Dose Admin Acetaminophen 650 mg 06/02/17 19:24 06/04/17 10:08 Tylenol - PO 650 mg Q6H PRN Administration FEVER OR PAIN Acetaminophen 1,000 mg 06/02/17 22:51 06/03/17 05:02 Ofirmev Injection - IVPB 1,000 mg Q6H PRN Administration FEVER OR PAIN Albuterol Sulfate 2 puff 06/02/17 19:24 06/03/17 21:05 Ventolin Hfa Inhaler - IH 2 puff Q4H PRN Administration SHORT OF BREATH/WHEEZING Arformoterol Tartrate 1 amp 06/04/17 10:00 06/04/17 10:15 Brovana (Restricted To Pulmonology/Resp) - NEB 1 amp BID ANNA Administration Bacitracin 1 applic 06/04/17 12:00 06/04/17 13:39 Bacitracin - TP 1 applic DAILY ANNA Administration Chlorhexidine Gluconate 1 applic 06/02/17 22:00 06/03/17 21:02 Hibiclens For Decolonization - TP Not Given HS ANNA Diltiazem HCl 30 mg 06/02/17 19:16 06/02/17 19:20 Cardizem Injection - IVPUSH 30 mg Q6H PRN Administration TACHYCARDIA Diltiazem HCl 180 mg 06/03/17 10:00 06/04/17 10:03 Cardizem Cd - PO 180 mg DAILY ANNA Administration Docusate Sodium 100 mg 06/02/17 22:00 06/04/17 13:40 Colace - PO Not Given TID ANNA Heparin Sodium (Porcine) 5,000 unit 06/02/17 21:26 Heparin - IVPUSH PRN PRN Heparin Heparin Sodium (Porcine) 1,000 unit 06/02/17 16:27 06/04/17 10:06 Heparin - IVPUSH 1,000 unit PRN PRN Administration Heparin Heparin Sodium/Dextrose 25,000 units in 500 mls @ 16 mls/hr 06/02/17 21:30 09:30 Heparin Infusion - IVPB 1,100 units/hr TITR ANNA 22 mls/hr Protocol Administration 800 UNITS/HR Lactulose 20 gm 06/02/17 22:00 06/04/17 13:39 Cephulac (Oral Use) PO 20 gm TID ANNA Administration Lorazepam 0.5 mg 06/02/17 19:24 Ativan - PO TID PRN ANXIETY Methylprednisolone Sodium Succinate 40 mg 06/04/17 10:00 06/04/17 10:03 Solu-Medrol - IVPUSH 40 mg Q8H-IV ANNA Administration Mupirocin 1 applic 06/02/17 22:00 06/04/17 10:00 Bactroban Ointment (For Decolonization) - NS 06/07/17 21:59 Not Given BID ANNA Ondansetron HCl 4 mg 06/02/17 19:24 Zofran Injection IVPUSH Q6H PRN NAUSEA AND/OR VOMITING Oxycodone HCl 5 mg 06/02/17 19:24 06/04/17 10:07 Roxicodone - PO 5 mg Q6H PRN Administration PAIN Ranitidine HCl 300 mg 06/03/17 18:30 06/03/17 18:27 Zantac - PO 300 mg DAILY@1800 ANNA Administration Tiotropium [place] 1 puff 06/03/17 10:00 06/04/17 10:03 Spiriva - IH 1 pfu DAILY ANNA Administration 1. CKD with acute component 2. AAA 3. lung cancer 4. HTN 5. a-fib 6. chol 7. hx hydropneumothorax 8. GI bleed Plan - repeat bmp in am - creatinine is elevated today, she was hypotensive yesterday - pt did not get any contrast - vascular follow up daily - cont steroids with taper as tolerated - monitor BP - avoid fleet enemas - will follow Dr Shearer
--- NOTE | 2017-06-04 16:13 | PN ---
Progress Note (short form) - Note Progress Note: ID consult asked to see patient for possible pneumonia this is a 77 year old female admitted with dark stools and abdominal discomfort 05/25 she has CKD she is s/p LLL lobectomy 03/06/17, she underwent a workup including abd/pelvic ct that showed a 5.7 cm AAA and a chest ct that showed a Left pleural effusion (felt to be postop from lobectomy) she is s/p EVAR 06/02 she notes cough and sob last pm- has improved with starting nebs and steroids she had a post op leukocytosis that coincides with iv steroids- given 06/02 am leukocytosis is resolving cxray today essentilly unchanged from 2 days ago she has no fevers and is feeling better still constipated on heparin drip 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
[2017-06-04] MEDS: RANITIDINE HCL 150 MG TABLET (FP) PO SCH (17:27)
[2017-06-04] MEDS ORDERED: PT OWN MED DRAWER 7, Y5N ONE (17:35)
--- NOTE | 2017-06-04 22:04 | CONS ---
INFECTIOUS DISEASE CONSULTATION DATE OF CONSULTATION: DATE OF DICTATION: 06/04/2017 REQUESTING PHYSICIAN: Kanchan Truong MD HISTORY OF PRESENT ILLNESS: This is a 77-year-old woman who was originally admitted on May 25 with abdominal pain, discomfort, and dark stools. She had a workup that included a CAT scan that showed that she had a 5.7-cm abdominal aortic aneurysm. She had a chest CT that showed a left pleural effusion. She had a recent left lower lobe lobectomy March 06. This was felt to be postoperative from the lobectomy. She underwent an endovascular aneurysm repair on May 29. She received steroids that day. The next day, she had some cough and shortness of breath. She was treated with steroids. This afternoon, is feeling much better. She had a transient leukocytosis associated with the steroids, that is resolving. She was given Ancef perioperatively. She had a repeat chest x-ray done today, that is essentially unchanged from 2 days ago. She has no fevers and is feeling better. She is still quite constipated. ALLERGIES: She has no known drug allergies. MEDICATIONS AT HOME: Include prednisone, Ativan, diltiazem, Symbicort, Eliquis. PAST MEDICAL HISTORY: Notable for atrial fibrillation, the abdominal aneurysm, hypertension, mitral insufficiency, COPD, GERD, lung cancer, chronic kidney disease, anemia, and hyperparathyroidism. SURGICAL HISTORY: Notable for recent thoracotomy in February. She is status post a left lower lobe lobectomy for cancer. She is status post recent EVAR on June 02. FAMILY HISTORY: Unremarkable. SOCIAL HISTORY: She lives in the community. She has recently stopped smoking. There is no history of any recent travel. REVIEW OF SYSTEMS: Notable for constipation. She has no more abdominal pain. PHYSICAL EXAMINATION: General: She is awake and alert. Vital Signs: Temperature is 99.5, pulse of 102, blood pressure 103/70, respiratory rate is 20. HEENT: She is normocephalic. Her eyes are anicteric. She has no thrush. Neck: Supple. Lungs: She has diminished breath sounds at the left base. Heart: Regular rate and rhythm. Abdomen: Soft, nontender. Both groin incisions are clean and dry. She has olayinka intact. There is no erythema or drainage. Extremities: Without edema. LABORATORY DATA: White count is 12.6 today, hemoglobin is 9.2, platelets are 214. Her BUN is 53 and creatinine 3.4. Chest x-ray is reported as unchanged. I discussed her management with Dr. Wolfe who knows the patient well. Given her stable chest x-ray findings and improvement with nebulizers and steroids, we will observe for now. If her respiratory status worsens, would obtain cultures and start vancomycin and Zosyn for hospital-acquired pneumonia. Further recommendations to follow. Santiago [id number]
[2017-06-04] MEDS: CHLORHEXIDINE GLUCONATE 4% CLEANSER FOR DECOLONIZATION TP SCH (22:50)
[2017-06-05] MEDS: methylPREDNISolone NA SUCC 40 MG/1 ML VIAL IVPUSH SCH ×2 (01:15→09:02)
[2017-06-05] MEDS: ACETAMINOPHEN 325 MG TABLET (FP) PO PRN (05:17)
[2017-06-05] MEDS: DOCUSATE SODIUM 100 MG CAPSULE (FP) PO SCH ×3 (06:04→22:01)
[2017-06-05] MEDS: LACTULOSE 20 GM/30 ML UDC (FOR ORAL USE ONLY) PO SCH ×3 (06:07→21:55)
[2017-06-05 07:52] LABS: HEMATOCRIT 27.7 % (32.4-45.2); HEMOGLOBIN 9.3 GM/dL (10.7-15.3); MCH 30.6 pg (25.7-33.7); MCHC 33.5 g/dl (32.0-36.0); MEAN CELL VOLUME 91.3 fl (80-96); PLATELET COUNT 226 K/MM3 (134-434); RBC 3.04 M/mm3 (3.60-5.2); RDW 15.2 % (11.6-15.6); WHITE BLOOD COUNT 12.7 K/mm3 (4.0-10.0)
[2017-06-05 08:33] LABS: CHLORIDE 103 mmol/L (98-107); POTASSIUM 4.6 mmol/L (3.5-5.1); SODIUM 137 mmol/L (136-145)
[2017-06-05] MEDS ORDERED: PT OWN MED DRAWER 7, Y5N ONE (08:46)
[2017-06-05 08:49] LABS: ANION GAP 13 (8-16); BLOOD UREA NITROGEN 53 mg/dL (7-18); CALCIUM 8.5 mg/dL (8.5-10.1); CO2 21 mmol/L (21-32); CREATININE 3.2 mg/dL (0.55-1.02); GLUCOSE,RANDOM 166 mg/dL (74-106)
[2017-06-05] MEDS: TIOTROPIUM BROMIDE 18 MCG/INH (DEVICE W/ 5 CAPSULES) IH SCH (09:02)
[2017-06-05] MEDS: BACITRACIN 15 GM TUBE TOPICAL OINTMENT TP SCH (09:03)
[2017-06-05] MEDS: HEPARIN INFUSION - 25,000 UNITS/500 ML INFUS.BAG IVPB SCH (09:03)
--- NOTE | 2017-06-05 09:52 | PN ---
Progress Note, Physician History of Present Illness: C/O SOB NO CP - Current Medication List Current Medications: Active Medications Acetaminophen (Tylenol -) 650 mg PO Q6H PRN PRN Reason: FEVER OR PAIN Last Admin: 06/05/17 05:17 Dose: 650 mg Acetaminophen (Ofirmev Injection -) 1,000 mg IVPB Q6H PRN PRN Reason: FEVER OR PAIN Last Admin: 06/03/17 05:02 Dose: 1,000 mg Albuterol Sulfate (Ventolin Hfa Inhaler -) 2 puff IH Q4H PRN PRN Reason: SHORT OF BREATH/WHEEZING Last Admin: 06/03/17 21:05 Dose: 2 puff Albuterol/Ipratropium (Duoneb -) 1 amp NEB QIDR ANNA Albuterol/Ipratropium (Duoneb -) 1 amp NEB ONCE ONE Stop: 06/05/17 09:52 Bacitracin (Bacitracin -) 1 applic TP DAILY ANNA Last Admin: 06/05/17 09:03 Dose: 1 applic Chlorhexidine Gluconate (Hibiclens For Decolonization -) 1 applic TP HS ANNA Last Admin: 06/04/17 22:50 Dose: Not Given Diltiazem HCl (Cardizem Injection -) 30 mg IVPUSH Q6H PRN PRN Reason: TACHYCARDIA Last Admin: 06/02/17 19:20 Dose: 30 mg Diltiazem HCl (Cardizem Cd -) 180 mg PO DAILY ANNA Last Admin: 06/05/17 09:02 Dose: 180 mg Docusate Sodium (Colace -) 100 mg PO TID ANNA Last Admin: 06/05/17 06:04 Dose: Not Given Heparin Sodium (Porcine) (Heparin -) 5,000 unit IVPUSH PRN PRN PRN Reason: Heparin Heparin Sodium (Porcine) (Heparin -) 1,000 unit IVPUSH PRN PRN PRN Reason: Heparin Last Admin: 06/04/17 10:06 Dose: 1,000 unit Heparin Sodium/Dextrose (Heparin Infusion -) 25,000 units in 500 mls @ 16 mls/ hr IVPB TITR ANNA; 800 UNITS/HR PRN Reason: Protocol Last Admin: 06/05/17 09:03 Dose: 1,100 units/hr, 22 mls/hr Lactulose (Cephulac (Oral Use)) 20 gm PO TID [facility] Last Admin: 06/05/17 06:07 Dose: 20 gm Lorazepam (Ativan -) 0.5 mg PO TID PRN PRN Reason: ANXIETY Methylprednisolone Sodium Succinate (Solu-Medrol -) 60 mg IVPUSH Q6H-IV [facility] Mupirocin (Bactroban Ointment (For Decolonization) -) 1 applic NS BID [facility] Stop: 06/07/17 21:59 Last Admin: 06/04/17 22:49 Dose: Not Given Ondansetron HCl (Zofran Injection) 4 mg IVPUSH Q6H PRN PRN Reason: NAUSEA AND/OR VOMITING Oxycodone HCl (Roxicodone -) 5 mg PO Q6H PRN PRN Reason: PAIN Last Admin: 06/04/17 10:07 Dose: 5 mg Ranitidine HCl (Zantac -) 300 mg PO DAILY@1800 [facility] Last Admin: 06/04/17 17:27 Dose: 300 mg Tiotropium [place] (Spiriva -) 1 puff IH DAILY [facility] Last Admin: 06/05/17 09:02 Dose: 1 pfu - Objective Vital Signs: Vital Signs Temperature 98.3 F 06/05/17 05:29 Pulse Rate 92 H 06/05/17 05:29 Respiratory Rate 20 06/05/17 05:29 Blood Pressure 113/74 06/05/17 05:29 O2 Sat by Pulse Oximetry (%) 96 06/04/17 21:00 Cardiovascular: Yes: S1, S2 Respiratory: Yes: Diminished, Rales, Wheezes Gastrointestinal: Yes: Normal Bowel Sounds, Soft Labs: CBC, BMP 06/05/17 05:45 06/05/17 05:45 INR, PTT INR 1.08 (0.82-1.09) 05/25/17 14:07 Problem List - Problems (1) CHF (congestive heart failure) Assessment/Plan: IV LASIX FOLLOW UP CXR MONITOR RENAL FUNCTION Code(s): I50.9 - HEART FAILURE, UNSPECIFIED (2) Pneumonia Assessment/Plan: REPEAT CXR ID F/[id number] Code(s): J18.9 - PNEUMONIA, UNSPECIFIED ORGANISM (3) COPD exacerbation Assessment/Plan: INCREASE STEROIDS NEBS QID TREAT ABOVE Code(s): J44.1 - CHRONIC OBSTRUCTIVE PULMONARY DISEASE W (ACUTE) EXACERBATION (4) History of endovascular stent graft for abdominal aortic aneurysm (AAA) Assessment/Plan: PER VASCULAR Code(s): Z95.828 - PRESENCE OF OTHER VASCULAR IMPLANTS AND GRAFTS (5) S/P lobectomy of lung Code(s): Z90.2 - ACQUIRED ABSENCE OF LUNG [PART OF] (6) Atrial fibrillation Assessment/Plan: ON HEPARIN Code(s): I48.91 - UNSPECIFIED ATRIAL FIBRILLATION Qualifiers: Atrial fibrillation type: persistent Qualified Code(s): I48.1 - Persistent atrial fibrillation
[2017-06-05] MEDS: MUPIROCIN 2% TOPICAL OINTMENT FOR DECOLONIZATION NS SCH ×2 (10:29→22:00)
[2017-06-05] MEDS ORDERED: ALBUTEROL SO4 2.5/IPRATROPIUM 0.5 INH SOL 3 ML VIAL.NEB. NEB ONE (10:30)
[2017-06-05] MEDS: FUROSEMIDE 40 MG/4 ML INJECTABLE VIAL IVPUSH ONE ×2 (11:00→18:46)
--- NOTE | 2017-06-05 11:31 | PN ---
Progress Note (short form) - Note Progress Note: difficult night SOB and cough- unable to expectorate still constipated despite laxatives, no BM Vital Signs Period Temp Pulse Resp BP Sys/Sellers Pulse Ox Last 24 Hr 98 F-99.5 F 76-102 20-22 96-119/58-82 96-97 cor-rrr lungs decreased bs left base abd soft,nt ext no edema CBC, BMP 06/05/17 05:45 06/05/17 05:45 cxray- left pleural effusiion- ?infiltrate retrocardiac area looks denser then in prior films a/p continued sob and cough- unable to expectorate with temp 99.5 and chronically abnormal cxray on steroids/nebs trial of antibiotics for hcap- zosyn ?diuretics-she refuses cultures first s/p [id number] s/p LLL lobectomy 03/06/2017 copd ckd Problem List - Problems (1) COPD exacerbation Code(s): J44.1 - CHRONIC OBSTRUCTIVE PULMONARY DISEASE W (ACUTE) EXACERBATION (2) History of endovascular stent graft for abdominal aortic aneurysm (AAA) Code(s): Z95.828 - PRESENCE OF OTHER VASCULAR IMPLANTS AND GRAFTS (3) S/P lobectomy of lung Code(s): Z90.2 - ACQUIRED ABSENCE OF LUNG [PART OF]
[2017-06-05] MEDS ORDERED: PIPERACILLIN/TAZOB 2.25 GM/50 ML PREMIX BAG IVPB SCH (11:45)
[2017-06-05] MEDS: ALBUTEROL SO4 2.5/IPRATROPIUM 0.5 INH SOL 3 ML VIAL.NEB. NEB SCH ×2 (14:24→18:00)
[2017-06-05] MEDS: PIPERACILLIN/TAZOB 2.25 GM 2.25 GM in DEXTROSE 5%-WATER - 50 ML IVPB SCH ×2 (14:58→21:43)
[2017-06-05] MEDS: methylPREDNISolone NA SUCC 125 MG/2 ML VIAL IVPUSH SCH ×2 (14:58→21:42)
--- NOTE | 2017-06-05 15:54 | PN ---
Progress Note (short form) - Note Progress Note: 1. CKD with acute component 2. AAA 3. lung cancer 4. HTN 5. a-fib 6. chol 7. hx hydropneumothorax 8. GI bleed Current Medications Acetaminophen (Tylenol -) 650 mg PO Q6H PRN PRN Reason: FEVER OR PAIN Last Admin: 06/05/17 05:17 Dose: 650 mg Acetaminophen (Ofirmev Injection -) 1,000 mg IVPB Q6H PRN PRN Reason: FEVER OR PAIN Last Admin: 06/03/17 05:02 Dose: 1,000 mg Albuterol Sulfate (Ventolin Hfa Inhaler -) 2 puff IH Q4H PRN PRN Reason: SHORT OF BREATH/WHEEZING Last Admin: 06/03/17 21:05 Dose: 2 puff Albuterol/Ipratropium (Duoneb -) 1 amp NEB QIDR [facility] Last Admin: 06/05/17 14:24 Dose: Not Given Bacitracin (Bacitracin -) 1 applic TP DAILY [facility] Last Admin: 06/05/17 09:03 Dose: 1 applic Chlorhexidine Gluconate (Hibiclens For Decolonization -) 1 applic TP HS [facility] Last Admin: 06/04/17 22:50 Dose: Not Given Diltiazem HCl (Cardizem Injection -) 30 mg IVPUSH Q6H PRN PRN Reason: TACHYCARDIA Last Admin: 06/02/17 19:20 Dose: 30 mg Diltiazem HCl (Cardizem Cd -) 180 mg PO DAILY [facility] Last Admin: 06/05/17 09:02 Dose: 180 mg Docusate Sodium (Colace -) 100 mg PO TID ANNA Last Admin: 06/05/17 15:00 Dose: Not Given Heparin Sodium (Porcine) (Heparin -) 5,000 unit IVPUSH PRN PRN PRN Reason: Heparin Heparin Sodium (Porcine) (Heparin -) 1,000 unit IVPUSH PRN PRN PRN Reason: Heparin Last Admin: 06/04/17 10:06 Dose: 1,000 unit Heparin Sodium/Dextrose (Heparin Infusion -) 25,000 units in 500 mls @ 16 mls/ hr IVPB TITR ANNA; 800 UNITS/HR PRN Reason: Protocol Last Admin: 06/05/17 09:03 Dose: 1,100 units/hr, 22 mls/hr Piperacillin Sod/Tazobactam (Sod 2.25 gm/ Dextrose) 50 mls @ 100 mls/hr IVPB Q8H-IV [facility] Last Admin: 06/05/17 14:58 Dose: 100 mls/hr Lactulose (Cephulac (Oral Use)) 20 gm PO TID [facility] Last Admin: 06/05/17 14:58 Dose: 20 gm Lorazepam (Ativan -) 0.5 mg PO TID PRN PRN Reason: ANXIETY Methylprednisolone Sodium Succinate (Solu-Medrol -) 60 mg IVPUSH Q6H-IV [facility] Last Admin: 06/05/17 14:58 Dose: 60 mg Mupirocin (Bactroban Ointment (For Decolonization) -) 1 applic NS BID [facility] Stop: 06/07/17 21:59 Last Admin: 06/05/17 10:29 Dose: Not Given Ondansetron HCl (Zofran Injection) 4 mg IVPUSH Q6H PRN PRN Reason: NAUSEA AND/OR VOMITING Oxycodone HCl (Roxicodone -) 5 mg PO Q6H PRN PRN Reason: PAIN Last Admin: 06/04/17 10:07 Dose: 5 mg Ranitidine HCl (Zantac -) 300 mg PO DAILY@1800 [facility] Last Admin: 06/04/17 17:27 Dose: 300 mg Tiotropium [place] (Spiriva -) 1 puff IH DAILY [facility] Last Admin: 06/05/17 09:02 Dose: 1 pfu Last Vital Signs Temp Pulse Resp BP Pulse Ox 98.8 F 81 19 100/57 97 06/05/17 14:44 06/05/17 14:44 06/05/17 14:44 06/05/17 14:44 06/05/17 11:06 CBC, BMP 06/05/17 05:45 06/05/17 05:45 IMP- s/p aaa endovasc antonio on chronic s/p low bp, bp's better today drinking more fluids at bedside Plan - creatinine is elevated today, she was hypotensive yesterday - pt did not get any contrast - vascular follow up daily - cont steroids with taper as tolerated - monitor BP - avoid fleet enemas - will follow
--- NOTE | 2017-06-05 16:42 | PN ---
Progress Note (short form) - Note Progress Note: PULMONARY More short of breath today with cough. CXR showing increasing congestion. Last Vital Signs Temp Pulse Resp BP Pulse Ox 98.8 F 81 19 100/57 97 06/05/17 14:44 06/05/17 14:44 06/05/17 14:44 06/05/17 14:44 06/05/17 11:06 Gen: NAD at rest Heart: RRR Lung: scattered rhonchi L>R Abd: soft, nontender Ext: + edema CBC, BMP 06/05/17 05:45 06/05/17 05:45 Active Medications Acetaminophen (Tylenol -) 650 mg PO Q6H PRN PRN Reason: FEVER OR PAIN Last Admin: 06/05/17 05:17 Dose: 650 mg Acetaminophen (Ofirmev Injection -) 1,000 mg IVPB Q6H PRN PRN Reason: FEVER OR PAIN Last Admin: 06/03/17 05:02 Dose: 1,000 mg Albuterol Sulfate (Ventolin Hfa Inhaler -) 2 puff IH Q4H PRN PRN Reason: SHORT OF BREATH/WHEEZING Last Admin: 06/03/17 21:05 Dose: 2 puff Albuterol/Ipratropium (Duoneb -) 1 amp NEB QIDR [facility] Last Admin: 06/05/17 14:24 Dose: Not Given Bacitracin (Bacitracin -) 1 applic TP DAILY [facility] Last Admin: 06/05/17 09:03 Dose: 1 applic Chlorhexidine Gluconate (Hibiclens For Decolonization -) 1 applic TP HS [facility] Last Admin: 06/04/17 22:50 Dose: Not Given Diltiazem HCl (Cardizem Injection -) 30 mg IVPUSH Q6H PRN PRN Reason: TACHYCARDIA Last Admin: 06/02/17 19:20 Dose: 30 mg Diltiazem HCl (Cardizem Cd -) 180 mg PO DAILY [facility] Last Admin: 06/05/17 09:02 Dose: 180 mg Docusate Sodium (Colace -) 100 mg PO TID [facility] Last Admin: 06/05/17 15:00 Dose: Not Given Heparin Sodium (Porcine) (Heparin -) 5,000 unit IVPUSH PRN PRN PRN Reason: Heparin Heparin Sodium (Porcine) (Heparin -) 1,000 unit IVPUSH PRN PRN PRN Reason: Heparin Last Admin: 06/04/17 10:06 Dose: 1,000 unit Heparin Sodium/Dextrose (Heparin Infusion -) 25,000 units in 500 mls @ 16 mls/ hr IVPB TITR ANNA; 800 UNITS/HR PRN Reason: Protocol Last Admin: 06/05/17 09:03 Dose: 1,100 units/hr, 22 mls/hr Piperacillin Sod/Tazobactam (Sod 2.25 gm/ Dextrose) 50 mls @ 100 mls/hr IVPB Q8H-IV [facility] Last Admin: 06/05/17 14:58 Dose: 100 mls/hr Lactulose (Cephulac (Oral Use)) 20 gm PO TID [facility] Last Admin: 06/05/17 14:58 Dose: 20 gm Lorazepam (Ativan -) 0.5 mg PO TID PRN PRN Reason: ANXIETY Methylprednisolone Sodium Succinate (Solu-Medrol -) 60 mg IVPUSH Q6H-IV [facility] Last Admin: 06/05/17 14:58 Dose: 60 mg Mupirocin (Bactroban Ointment (For Decolonization) -) 1 applic NS BID [facility] Stop: 06/07/17 21:59 Last Admin: 06/05/17 10:29 Dose: Not Given Ondansetron HCl (Zofran Injection) 4 mg IVPUSH Q6H PRN PRN Reason: NAUSEA AND/OR VOMITING Oxycodone HCl (Roxicodone -) 5 mg PO Q6H PRN PRN Reason: PAIN Last Admin: 06/04/17 10:07 Dose: 5 mg Ranitidine HCl (Zantac -) 300 mg PO DAILY@1800 [facility] Last Admin: 06/04/17 17:27 Dose: 300 mg Tiotropium [place] (Spiriva -) 1 puff IH DAILY [facility] Last Admin: 06/05/17 09:02 Dose: 1 pfu A/P AAA s/p EVAR Lung Ca s/p LLL lobectomy COPD Atrial Fibrillation Acute on CKD - started on empiric antibiotics - refusing lasix - echocardiogram - monitor H/H - pain control - continue low dose prednisone - inhaled bronchodilators - incentive spirometry - rate control - continue anticoagulation - DVT prophylaxis
[2017-06-05] MEDS: RANITIDINE HCL 150 MG TABLET (FP) PO SCH (17:54)
[2017-06-05] MEDS: ONDANSETRON 4 MG/2 ML VIAL IVPUSH PRN (21:54)
[2017-06-05] MEDS: CHLORHEXIDINE GLUCONATE 4% CLEANSER FOR DECOLONIZATION TP SCH (22:00)
[2017-06-06] MEDS: ALBUTEROL SO4 2.5/IPRATROPIUM 0.5 INH SOL 3 ML VIAL.NEB. NEB SCH ×5 (00:05→23:22)
[2017-06-06] MEDS: PIPERACILLIN/TAZOB 2.25 GM 2.25 GM in DEXTROSE 5%-WATER - 50 ML IVPB SCH ×4 (02:28→17:30)
[2017-06-06] MEDS: methylPREDNISolone NA SUCC 125 MG/2 ML VIAL IVPUSH SCH ×4 (02:28→21:46)
[2017-06-06] MEDS: DOCUSATE SODIUM 100 MG CAPSULE (FP) PO SCH ×3 (06:34→21:50)
[2017-06-06] MEDS: LACTULOSE 20 GM/30 ML UDC (FOR ORAL USE ONLY) PO SCH ×3 (06:34→21:49)
[2017-06-06 07:41] LABS: HEMATOCRIT 26.7 % (32.4-45.2); HEMOGLOBIN 8.8 GM/dL (10.7-15.3); MCH 30.2 pg (25.7-33.7); MCHC 33.1 g/dl (32.0-36.0); MEAN CELL VOLUME 91.3 fl (80-96); PLATELET COUNT 216 K/MM3 (134-434); RBC 2.92 M/mm3 (3.60-5.2); RDW 15.1 % (11.6-15.6); WHITE BLOOD COUNT 12.1 K/mm3 (4.0-10.0)
[2017-06-06 09:05] LABS: ALBUMIN 2.3 g/dl (3.4-5.0); ALK PHOS 77 U/L (45-117); ANION GAP 14 (8-16); BILIRUBIN,TOTAL 0.2 mg/dL (0.2-1.0); BLOOD UREA NITROGEN 56 mg/dL (7-18); CALCIUM 8.3 mg/dL (8.5-10.1); CHLORIDE 104 mmol/L (98-107); CO2 20 mmol/L (21-32); CREATININE 3.5 mg/dL (0.55-1.02); GLUCOSE,RANDOM 184 mg/dL (74-106); POTASSIUM 4.4 mmol/L (3.5-5.1); SGOT/AST 12 U/L (15-37); SGPT/ALT 14 U/L (12-78); SODIUM 138 mmol/L (136-145); TOT PROT 5.9 g/dl (6.4-8.2)
--- NOTE | 2017-06-06 10:20 | PN ---
Progress Note (short form) - Note Progress Note: \still coughing still SOB small bm yesterday liquid bm today Vital Signs Period Temp Pulse Resp BP Sys/Sellers Pulse Ox Last 24 Hr 98.1 F-98.8 F 80-95 19-20 100-117/56-66 97-97 cor-rrr lungs decreased bs left base abd soft,nt ext no edema groin incisions clean and dry CBC, BMP 06/06/17 05:48 06/06/17 05:48 cxray pending a/p continued sob and cough- unable to expectorate with temp continue steroids/nebs day #1 zosyn refusing diuretics s/p EVAR12/6 s/p LLL lobectomy 03/06/2017 copd ckd-worsening Problem List - Problems (1) COPD exacerbation Code(s): J44.1 - CHRONIC OBSTRUCTIVE PULMONARY DISEASE W (ACUTE) EXACERBATION (2) History of endovascular stent graft for abdominal aortic aneurysm (AAA) Code(s): Z95.828 - PRESENCE OF OTHER VASCULAR IMPLANTS AND GRAFTS (3) S/P lobectomy of lung Code(s): Z90.2 - ACQUIRED ABSENCE OF LUNG [PART OF]
[2017-06-06] MEDS: MUPIROCIN 2% TOPICAL OINTMENT FOR DECOLONIZATION NS SCH ×2 (10:57→21:49)
[2017-06-06] MEDS: BACITRACIN 15 GM TUBE TOPICAL OINTMENT TP SCH (10:58)
[2017-06-06] MEDS: TIOTROPIUM BROMIDE 18 MCG/INH (DEVICE W/ 5 CAPSULES) IH SCH (10:59)
--- NOTE | 2017-06-06 13:48 | PN ---
Progress Note, Physician History of Present Illness: C/O SOB NO CP - Current Medication List Current Medications: Active Medications Acetaminophen (Tylenol -) 650 mg PO Q6H PRN PRN Reason: FEVER OR PAIN Last Admin: 06/05/17 05:17 Dose: 650 mg Acetaminophen (Ofirmev Injection -) 1,000 mg IVPB Q6H PRN PRN Reason: FEVER OR PAIN Last Admin: 06/03/17 05:02 Dose: 1,000 mg Albuterol Sulfate (Ventolin Hfa Inhaler -) 2 puff IH Q4H PRN PRN Reason: SHORT OF BREATH/WHEEZING Last Admin: 06/03/17 21:05 Dose: 2 puff Albuterol/Ipratropium (Duoneb -) 1 amp NEB QIDR [facility] Last Admin: 06/06/17 11:10 Dose: 1 amp Bacitracin (Bacitracin -) 1 applic TP DAILY [facility] Last Admin: 06/06/17 10:58 Dose: 1 applic Chlorhexidine Gluconate (Hibiclens For Decolonization -) 1 applic TP HS [facility] Last Admin: 06/05/17 22:00 Dose: Not Given Diltiazem HCl (Cardizem Injection -) 30 mg IVPUSH Q6H PRN PRN Reason: TACHYCARDIA Last Admin: 06/02/17 19:20 Dose: 30 mg Diltiazem HCl (Cardizem Cd -) 180 mg PO DAILY [facility] Last Admin: 06/06/17 10:57 Dose: 180 mg Docusate Sodium (Colace -) 100 mg PO TID [facility] Last Admin: 06/06/17 06:34 Dose: Not Given Heparin Sodium (Porcine) (Heparin -) 5,000 unit IVPUSH PRN PRN PRN Reason: Heparin Heparin Sodium (Porcine) (Heparin -) 1,000 unit IVPUSH PRN PRN PRN Reason: Heparin Last Admin: 06/04/17 10:06 Dose: 1,000 unit Heparin Sodium/Dextrose (Heparin Infusion -) 25,000 units in 500 mls @ 16 mls/ hr IVPB TITR ANNA; 800 UNITS/HR PRN Reason: Protocol Last Admin: 06/05/17 09:03 Dose: 1,100 units/hr, 22 mls/hr Piperacillin Sod/Tazobactam (Sod 2.25 gm/ Dextrose) 50 mls @ 100 mls/hr IVPB Q8H-IV [facility] Last Admin: 06/06/17 10:58 Dose: 100 mls/hr Lactulose (Cephulac (Oral Use)) 20 gm PO TID [facility] Last Admin: 06/06/17 06:34 Dose: 20 gm Lorazepam (Ativan -) 0.5 mg PO TID PRN PRN Reason: ANXIETY Methylprednisolone Sodium Succinate (Solu-Medrol -) 60 mg IVPUSH Q6H-IV [facility] Last Admin: 06/06/17 09:00 Dose: 60 mg Mupirocin (Bactroban Ointment (For Decolonization) -) 1 applic NS BID [facility] Stop: 06/07/17 21:59 Last Admin: 06/06/17 10:57 Dose: Not Given Ondansetron HCl (Zofran Injection) 4 mg IVPUSH Q6H PRN PRN Reason: NAUSEA AND/OR VOMITING Last Admin: 06/05/17 21:54 Dose: 4 mg Oxycodone HCl (Roxicodone -) 5 mg PO Q6H PRN PRN Reason: PAIN Last Admin: 06/04/17 10:07 Dose: 5 mg Ranitidine HCl (Zantac -) 300 mg PO DAILY@1800 [facility] Last Admin: 06/05/17 17:54 Dose: 300 mg Tiotropium [place] (Spiriva -) 1 puff IH DAILY [facility] Last Admin: 06/06/17 10:59 Dose: 1 pfu - Objective Vital Signs: Vital Signs Temperature 98.6 F 06/06/17 11:00 Pulse Rate 98 H 06/06/17 11:00 Respiratory Rate 20 06/06/17 11:00 Blood Pressure 116/84 06/06/17 11:00 O2 Sat by Pulse Oximetry (%) 97 06/05/17 21:00 Cardiovascular: Yes: Regular Rate and Rhythm Respiratory: Yes: Diminished, Rales Gastrointestinal: Yes: Normal Bowel Sounds, Soft Labs: CBC, BMP 06/06/17 05:48 06/06/17 05:48 INR, PTT INR 1.08 (0.82-1.09) 05/25/17 14:07 Problem List - Problems (1) CHF (congestive heart failure) Assessment/Plan: IV LASIX X 1 GIVEN FOLLOW UP CXR MONITOR RENAL FUNCTION Code(s): I50.9 - HEART FAILURE, UNSPECIFIED (2) Pneumonia Assessment/Plan: REPEAT CXR ID F/U--ON ABX ZOSYN Code(s): J18.9 - PNEUMONIA, UNSPECIFIED ORGANISM (3) COPD exacerbation Assessment/Plan: INCREASE STEROIDS NEBS QID TREAT ABOVE Code(s): J44.1 - CHRONIC OBSTRUCTIVE PULMONARY DISEASE W (ACUTE) EXACERBATION (4) History of endovascular stent graft for abdominal aortic aneurysm (AAA) Assessment/Plan: PER VASCULAR Code(s): Z95.828 - PRESENCE OF OTHER VASCULAR IMPLANTS AND GRAFTS (5) S/P lobectomy of lung Code(s): Z90.2 - ACQUIRED ABSENCE OF LUNG [PART OF] (6) Atrial fibrillation Assessment/Plan: ON HEPARIN Code(s): I48.91 - UNSPECIFIED ATRIAL FIBRILLATION Qualifiers: Atrial fibrillation type: persistent Qualified Code(s): I48.1 - Persistent atrial fibrillation (7) Chronic renal disease Assessment/Plan: WORSENING RENAL FOLLOW UP Code(s): N18.9 - CHRONIC KIDNEY DISEASE, UNSPECIFIED Qualifiers: Chronic kidney disease stage: stage 4 (severe) Qualified Code(s): N18.4 - Chronic kidney disease, stage 4 (severe)
--- NOTE | 2017-06-06 13:49 | PN ---
Progress Note (short form) - Note Progress Note: PULMONARY More short of breath today with cough. Last Vital Signs Temp Pulse Resp BP Pulse Ox 98.6 F 98 H 20 116/84 97 06/06/17 11:00 06/06/17 11:00 06/06/17 11:00 06/06/17 11:00 06/05/17 21:00 Gen: NAD at rest Heart: RRR Lung: scattered rhonchi L>R Abd: soft, nontender Ext: + edema CBC, BMP 06/06/17 05:48 06/06/17 05:48 Active Medications Acetaminophen (Tylenol -) 650 mg PO Q6H PRN PRN Reason: FEVER OR PAIN Last Admin: 06/05/17 05:17 Dose: 650 mg Acetaminophen (Ofirmev Injection -) 1,000 mg IVPB Q6H PRN PRN Reason: FEVER OR PAIN Last Admin: 06/03/17 05:02 Dose: 1,000 mg Albuterol Sulfate (Ventolin Hfa Inhaler -) 2 puff IH Q4H PRN PRN Reason: SHORT OF BREATH/WHEEZING Last Admin: 06/03/17 21:05 Dose: 2 puff Albuterol/Ipratropium (Duoneb -) 1 amp NEB QIDR [facility] Last Admin: 06/06/17 11:10 Dose: 1 amp Bacitracin (Bacitracin -) 1 applic TP DAILY [facility] Last Admin: 06/06/17 10:58 Dose: 1 applic Chlorhexidine Gluconate (Hibiclens For Decolonization -) 1 applic TP HS [facility] Last Admin: 06/05/17 22:00 Dose: Not Given Diltiazem HCl (Cardizem Injection -) 30 mg IVPUSH Q6H PRN PRN Reason: TACHYCARDIA Last Admin: 06/02/17 19:20 Dose: 30 mg Diltiazem HCl (Cardizem Cd -) 180 mg PO DAILY [facility] Last Admin: 06/06/17 10:57 Dose: 180 mg Docusate Sodium (Colace -) 100 mg PO TID [facility] Last Admin: 06/06/17 06:34 Dose: Not Given Heparin Sodium (Porcine) (Heparin -) 5,000 unit IVPUSH PRN PRN PRN Reason: Heparin Heparin Sodium (Porcine) (Heparin -) 1,000 unit IVPUSH PRN PRN PRN Reason: Heparin Last Admin: 06/04/17 10:06 Dose: 1,000 unit Heparin Sodium/Dextrose (Heparin Infusion -) 25,000 units in 500 mls @ 16 mls/ hr IVPB TITR ANNA; 800 UNITS/HR PRN Reason: Protocol Last Admin: 06/05/17 09:03 Dose: 1,100 units/hr, 22 mls/hr Piperacillin Sod/Tazobactam (Sod 2.25 gm/ Dextrose) 50 mls @ 100 mls/hr IVPB Q8H-IV [facility] Last Admin: 06/06/17 10:58 Dose: 100 mls/hr Lactulose (Cephulac (Oral Use)) 20 gm PO TID [facility] Last Admin: 06/06/17 06:34 Dose: 20 gm Lorazepam (Ativan -) 0.5 mg PO TID PRN PRN Reason: ANXIETY Methylprednisolone Sodium Succinate (Solu-Medrol -) 60 mg IVPUSH Q6H-IV [facility] Last Admin: 06/06/17 09:00 Dose: 60 mg Mupirocin (Bactroban Ointment (For Decolonization) -) 1 applic NS BID [facility] Stop: 06/07/17 21:59 Last Admin: 06/06/17 10:57 Dose: Not Given Ondansetron HCl (Zofran Injection) 4 mg IVPUSH Q6H PRN PRN Reason: NAUSEA AND/OR VOMITING Last Admin: 06/05/17 21:54 Dose: 4 mg Oxycodone HCl (Roxicodone -) 5 mg PO Q6H PRN PRN Reason: PAIN Last Admin: 06/04/17 10:07 Dose: 5 mg Ranitidine HCl (Zantac -) 300 mg PO DAILY@1800 [facility] Last Admin: 06/05/17 17:54 Dose: 300 mg Tiotropium [place] (Spiriva -) 1 puff IH DAILY [facility] Last Admin: 06/06/17 10:59 Dose: 1 pfu A/P AAA s/p EVAR Lung Ca s/p LLL lobectomy COPD Atrial Fibrillation Acute on CKD - started on empiric antibiotics - would order CT chest to visualize lung parenchyma infiltrate vs effusion on CXR but pt declining at this time because she states she had too much radiation , may allow tomorrow - echocardiogram - monitor H/H - pain control - continue low dose prednisone - inhaled bronchodilators - incentive spirometry - rate control - continue anticoagulation - DVT prophylaxis
[2017-06-06] MEDS ORDERED: PT OWN MED DRAWER 7, Y5N ONE ×2 (14:51→15:38)
[2017-06-06] MEDS: RANITIDINE HCL 150 MG TABLET (FP) PO SCH ×2 (15:08→17:30)
--- NOTE | 2017-06-06 17:21 | PN ---
Progress Note (short form) - Note Progress Note: 1. CKD with acute component 2. AAA s/p endovascular repair 3. lung cancer 4. HTN 5. a-fib 6. chol 7. hx hydropneumothorax 8. GI bleed Current Medications Acetaminophen (Tylenol -) 650 mg PO Q6H PRN PRN Reason: FEVER OR PAIN Last Admin: 06/05/17 05:17 Dose: 650 mg Acetaminophen (Ofirmev Injection -) 1,000 mg IVPB Q6H PRN PRN Reason: FEVER OR PAIN Last Admin: 06/03/17 05:02 Dose: 1,000 mg Albuterol Sulfate (Ventolin Hfa Inhaler -) 2 puff IH Q4H PRN PRN Reason: SHORT OF BREATH/WHEEZING Last Admin: 06/03/17 21:05 Dose: 2 puff Albuterol/Ipratropium (Duoneb -) 1 amp NEB QIDR [facility] Last Admin: 06/06/17 11:10 Dose: 1 amp Bacitracin (Bacitracin -) 1 applic TP DAILY [facility] Last Admin: 06/06/17 10:58 Dose: 1 applic Chlorhexidine Gluconate (Hibiclens For Decolonization -) 1 applic TP HS [facility] Last Admin: 06/05/17 22:00 Dose: Not Given Diltiazem HCl (Cardizem Injection -) 30 mg IVPUSH Q6H PRN PRN Reason: TACHYCARDIA Last Admin: 06/02/17 19:20 Dose: 30 mg Diltiazem HCl (Cardizem Cd -) 180 mg PO DAILY [facility] Last Admin: 06/06/17 10:57 Dose: 180 mg Docusate Sodium (Colace -) 100 mg PO TID [facility] Last Admin: 06/06/17 15:07 Dose: Not Given Heparin Sodium (Porcine) (Heparin -) 5,000 unit IVPUSH PRN PRN PRN Reason: Heparin Heparin Sodium (Porcine) (Heparin -) 1,000 unit IVPUSH PRN PRN PRN Reason: Heparin Last Admin: 06/04/17 10:06 Dose: 1,000 unit Heparin Sodium/Dextrose (Heparin Infusion -) 25,000 units in 500 mls @ 16 mls/ hr IVPB TITR ANNA; 800 UNITS/HR PRN Reason: Protocol Last Admin: 06/05/17 09:03 Dose: 1,100 units/hr, 22 mls/hr Piperacillin Sod/Tazobactam (Sod 2.25 gm/ Dextrose) 50 mls @ 100 mls/hr IVPB Q8H-IV [facility] Last Admin: 06/06/17 15:10 Dose: 100 mls/hr Lactulose (Cephulac (Oral Use)) 20 gm PO TID [facility] Last Admin: 06/06/17 15:07 Dose: 20 gm Lorazepam (Ativan -) 0.5 mg PO TID PRN PRN Reason: ANXIETY Methylprednisolone Sodium Succinate (Solu-Medrol -) 60 mg IVPUSH Q6H-IV [facility] Last Admin: 06/06/17 15:08 Dose: 60 mg Mupirocin (Bactroban Ointment (For Decolonization) -) 1 applic NS BID [facility] Stop: 06/07/17 21:59 Last Admin: 06/06/17 10:57 Dose: Not Given Ondansetron HCl (Zofran Injection) 4 mg IVPUSH Q6H PRN PRN Reason: NAUSEA AND/OR VOMITING Last Admin: 06/05/17 21:54 Dose: 4 mg Oxycodone HCl (Roxicodone -) 5 mg PO Q6H PRN PRN Reason: PAIN Last Admin: 06/04/17 10:07 Dose: 5 mg Ranitidine HCl (Zantac -) 300 mg PO DAILY@1800 [facility] Last Admin: 06/06/17 15:08 Dose: 300 mg Tiotropium [place] (Spiriva -) 1 puff IH DAILY [facility] Last Admin: 06/06/17 10:59 Dose: 1 pfu Last Vital Signs Temp Pulse Resp BP Pulse Ox 99.6 F 88 20 108/56 97 06/06/17 14:00 06/06/17 14:00 06/06/17 11:00 06/06/17 14:00 06/05/17 21:00 lungs c;ear heart s1s2 abd soft CBC, BMP 06/06/17 05:48 06/06/17 05:48 IMP- s/p aaa endovasc antonio on chronic s/p low bp, bp's better today drinking more fluids at bedside Plan small aliquot of ivf
[2017-06-06] MEDS ORDERED: SODIUM CHLORIDE 1,000 ML IV SCH (17:30)
[2017-06-06] MEDS: LORazepam 0.5 MG TABLET PO PRN (21:50)
[2017-06-06] MEDS: CHLORHEXIDINE GLUCONATE 4% CLEANSER FOR DECOLONIZATION TP SCH (21:50)
[2017-06-06] MEDS: APIXABAN 2.5 MG TABLET PO SCH (22:20)
[2017-06-07] MEDS: PIPERACILLIN/TAZOB 2.25 GM 2.25 GM in DEXTROSE 5%-WATER - 50 ML IVPB SCH ×3 (01:38→17:32)
[2017-06-07] MEDS: methylPREDNISolone NA SUCC 125 MG/2 ML VIAL IVPUSH SCH ×4 (03:40→21:08)
[2017-06-07] MEDS: LACTULOSE 20 GM/30 ML UDC (FOR ORAL USE ONLY) PO SCH ×3 (05:35→21:06)
[2017-06-07] MEDS: DOCUSATE SODIUM 100 MG CAPSULE (FP) PO SCH ×3 (05:35→21:06)
[2017-06-07] MEDS: ALBUTEROL SO4 2.5/IPRATROPIUM 0.5 INH SOL 3 ML VIAL.NEB. NEB SCH ×3 (05:58→17:50)
[2017-06-07 07:12] LABS: HEMATOCRIT 26.8 % (32.4-45.2); HEMOGLOBIN 8.8 GM/dL (10.7-15.3); MCH 29.9 pg (25.7-33.7); MCHC 32.8 g/dl (32.0-36.0); MEAN CELL VOLUME 91.2 fl (80-96); MEAN PLT VOLUME 7.9 fl (7.5-11.1); PLATELET COUNT 232 K/MM3 (134-434); RBC 2.94 M/mm3 (3.60-5.2); RDW 15.1 % (11.6-15.6); WHITE BLOOD COUNT 12.1 K/mm3 (4.0-10.0)
[2017-06-07 07:53] LABS: CHLORIDE 104 mmol/L (98-107); SODIUM 139 mmol/L (136-145)
[2017-06-07 08:02] LABS: ALBUMIN 2.3 g/dl (3.4-5.0); ALK PHOS 61 U/L (45-117); ANION GAP 15 (8-16); BILIRUBIN,TOTAL 0.2 mg/dL (0.2-1.0); BLOOD UREA NITROGEN 70 mg/dL (7-18); CALCIUM 8.2 mg/dL (8.5-10.1); CO2 20 mmol/L (21-32); CREATININE 3.5 mg/dL (0.55-1.02); GLUCOSE,RANDOM 193 mg/dL (74-106); SGOT/AST 6 U/L (15-37); SGPT/ALT 12 U/L (12-78); TOT PROT 5.6 g/dl (6.4-8.2)
[2017-06-07] MEDS ORDERED: PT OWN MED DRAWER 7, Y5N ONE ×2 (09:23→17:15)
[2017-06-07 09:31] LABS: ACANTHOCYTES 0; ANISOCYTOSIS 0; HELMET CELLS 0; HOWELL-JOLLY BODIES 0; MACROCYTOSIS 0; OVALOCYTE 0; PLATELET ESTIMATE NORMAL; SICKELED CELLS 0; TARGET CELLS 0; TEAR DROP CELLS 0; TOXIC GRANULATION 0
[2017-06-07] MEDS: APIXABAN 2.5 MG TABLET PO SCH (09:47)
[2017-06-07] MEDS: BACITRACIN 15 GM TUBE TOPICAL OINTMENT TP SCH (09:47)
[2017-06-07] MEDS: TIOTROPIUM BROMIDE 18 MCG/INH (DEVICE W/ 5 CAPSULES) IH SCH (09:48)
--- NOTE | 2017-06-07 11:49 | PN ---
Progress Note (short form) - Note Progress Note: Vascular Surgery Patient seen and examined at bedside No complaints Vital Signs Vital Signs Period Temp Pulse Resp BP Sys/Sellers Pulse Ox Last 24 Hr 97.7 F-99.6 F 78-92 18-18 100-117/51-70 99 GEN: A&0x3 CV: RR, irregular rhythm Abd: soft NT/ND bilateral groin staple line C/D/I LE: no calf tenderness or swelling b/l. +2 dp pulses POD #5 s/p EVAAR Stop Bacitracin to groins pain control PRN Continue GI PPx Continue DVT PPx continue eliquis A. fib rate control Medical management per primary medical team Pulm for wheezing Cr worsened renal on board Can be discharged from surgical standpoint follow up with Dr. Qureshi for olayinka removal case discussed with attending Dr. Qureshi
--- NOTE | 2017-06-07 12:12 | PN ---
Progress Note, Physician History of Present Illness: Pt seen and examined at bedside. She is awake and alert. She complains of an area that bulges when she breathes on her left ribcage. - Current Medication List Current Medications: Active Medications Acetaminophen (Tylenol -) 650 mg PO Q6H PRN PRN Reason: FEVER OR PAIN Last Admin: 06/05/17 05:17 Dose: 650 mg Acetaminophen (Ofirmev Injection -) 1,000 mg IVPB Q6H PRN PRN Reason: FEVER OR PAIN Last Admin: 06/03/17 05:02 Dose: 1,000 mg Albuterol Sulfate (Ventolin Hfa Inhaler -) 2 puff IH Q4H PRN PRN Reason: SHORT OF BREATH/WHEEZING Last Admin: 06/03/17 21:05 Dose: 2 puff Albuterol/Ipratropium (Duoneb -) 1 amp NEB QIDR ANNA Last Admin: 06/07/17 12:00 Dose: 1 amp Apixaban (Eliquis -) 2.5 mg PO BID ANNA Last Admin: 06/07/17 09:47 Dose: 2.5 mg Bacitracin (Bacitracin -) 1 applic TP DAILY ANNA Last Admin: 06/07/17 09:47 Dose: 1 applic Diltiazem HCl (Cardizem Injection -) 30 mg IVPUSH Q6H PRN PRN Reason: TACHYCARDIA Last Admin: 06/02/17 19:20 Dose: 30 mg Diltiazem HCl (Cardizem Cd -) 180 mg PO DAILY ANNA Last Admin: 06/07/17 09:47 Dose: 180 mg Docusate Sodium (Colace -) 100 mg PO TID ANNA Last Admin: 06/07/17 05:35 Dose: Not Given Piperacillin Sod/Tazobactam (Sod 2.25 gm/ Dextrose) 50 mls @ 100 mls/hr IVPB Q8H-IV ANNA Last Admin: 06/07/17 09:46 Dose: 100 mls/hr Sodium Chloride (Normal Saline -) 1,000 mls @ 75 mls/hr IV ASDIR ANNA Stop: 06/07/17 18:00 Last Admin: 06/06/17 17:50 Dose: 75 mls/hr Lactulose (Cephulac (Oral Use)) 20 gm PO TID ANNA Last Admin: 06/07/17 05:35 Dose: 20 gm Lorazepam (Ativan -) 0.5 mg PO TID PRN PRN Reason: ANXIETY Last Admin: 06/06/17 21:50 Dose: 0.5 mg Methylprednisolone Sodium Succinate (Solu-Medrol -) 60 mg IVPUSH Q6H-IV ANNA Last Admin: 06/07/17 09:47 Dose: 60 mg Ondansetron HCl (Zofran Injection) 4 mg IVPUSH Q6H PRN PRN Reason: NAUSEA AND/OR VOMITING Last Admin: 06/05/17 21:54 Dose: 4 mg Ranitidine HCl (Zantac -) 300 mg PO DAILY@1800 ANNA Last Admin: 06/06/17 17:30 Dose: Not Given Tiotropium [place] (Spiriva -) 1 puff IH DAILY [facility] Last Admin: 06/07/17 09:48 Dose: 1 pfu - Objective Vital Signs: Vital Signs Temperature 98.2 F 06/07/17 08:15 Pulse Rate 62 06/07/17 12:01 Respiratory Rate 18 06/07/17 08:15 Blood Pressure 114/64 06/07/17 08:15 O2 Sat by Pulse Oximetry (%) 100 06/07/17 12:01 Constitutional: Yes: Anxious Eyes: Yes: Conjunctiva Clear HENT: Yes: Atraumatic Neck: Yes: Supple Cardiovascular: Yes: S1, S2 Respiratory: Yes: On Nasal O2 Gastrointestinal: Yes: Soft Genitourinary: Yes: WNL Musculoskeletal: Yes: WNL Edema: No Neurological: Yes: Oriented Psychiatric: Yes: Oriented Labs: CBC, BMP 06/07/17 05:28 06/07/17 05:28 INR, PTT INR 1.08 (0.82-1.09) 05/25/17 14:07 Problem List - Problems (1) Abdominal aortic aneurysm (AAA) Code(s): I71.4 - ABDOMINAL AORTIC ANEURYSM, WITHOUT RUPTURE Qualifiers: Presence of rupture: without rupture Qualified Code(s): I71.4 - Abdominal aortic aneurysm, without rupture (2) Stool guaiac positive Code(s): R19.5 - OTHER FECAL ABNORMALITIES (3) Atrial fibrillation Code(s): I48.91 - UNSPECIFIED ATRIAL FIBRILLATION Qualifiers: Atrial fibrillation type: persistent Qualified Code(s): I48.1 - Persistent atrial fibrillation (4) COPD (chronic obstructive pulmonary disease) Code(s): J44.9 - CHRONIC OBSTRUCTIVE PULMONARY DISEASE, UNSPECIFIED Qualifiers: Emphysema type: centrilobular (5) Chronic renal disease Code(s): N18.9 - CHRONIC KIDNEY DISEASE, UNSPECIFIED Qualifiers: Chronic kidney disease stage: stage 4 (severe) Qualified Code(s): N18.4 - Chronic kidney disease, stage 4 (severe) (6) Pneumothorax Code(s): J93.9 - PNEUMOTHORAX, UNSPECIFIED Qualifiers: Pneumothorax type: postprocedural Qualified Code(s): J95.811 - Postprocedural pneumothorax (7) Tobacco use Code(s): Z72.0 - TOBACCO USE Assessment/Plan Current Medications Generic Name Dose Route Start Last Admin Trade Name Freq PRN Reason Stop Dose Admin Acetaminophen 650 mg 06/02/17 19:24 06/05/17 05:17 Tylenol - PO 650 mg Q6H PRN Administration FEVER OR PAIN Acetaminophen 1,000 mg 06/02/17 22:51 06/03/17 05:02 Ofirmev Injection - IVPB 1,000 mg Q6H PRN Administration FEVER OR PAIN Albuterol Sulfate 2 puff 06/02/17 19:24 06/03/17 21:05 Ventolin Hfa Inhaler - IH 2 puff Q4H PRN Administration SHORT OF BREATH/WHEEZING Albuterol/Ipratropium 1 amp 06/05/17 13:00 06/07/17 12:00 Duoneb - NEB 1 amp QIDR ANNA Administration Apixaban 2.5 mg 06/06/17 22:15 06/07/17 09:47 Eliquis - PO 2.5 mg BID ANNA Administration Bacitracin 1 applic 06/04/17 12:00 06/07/17 09:47 Bacitracin - TP 1 applic DAILY ANNA Administration Diltiazem HCl 30 mg 06/02/17 19:16 06/02/17 19:20 Cardizem Injection - IVPUSH 30 mg Q6H PRN Administration TACHYCARDIA Diltiazem HCl 180 mg 06/03/17 10:00 06/07/17 09:47 Cardizem Cd - PO 180 mg DAILY ANNA Administration Docusate Sodium 100 mg 06/02/17 22:00 06/07/17 05:35 Colace - PO Not Given TID ANNA Piperacillin Sod/Tazobactam 50 mls @ 100 mls/hr 06/05/17 12:15 06/07/17 09:46 Sod 2.25 gm/ Dextrose IVPB 100 mls/hr Q8H-IV ANNA Administration Sodium Chloride 1,000 mls @ 75 mls/hr 06/06/17 17:30 06/06/17 17:50 Normal Saline - IV 06/07/17 18:00 75 mls/hr ASDIR ANNA Administration Lactulose 20 gm 06/02/17 22:00 06/07/17 05:35 Cephulac (Oral Use) PO 20 gm TID ANNA Administration Lorazepam 0.5 mg 06/02/17 19:24 06/06/17 21:50 Ativan - PO 0.5 mg TID PRN Administration ANXIETY Methylprednisolone Sodium Succinate 60 mg 06/05/17 15:00 06/07/17 09:47 Solu-Medrol - IVPUSH 60 mg Q6H-IV ANNA Administration Ondansetron HCl 4 mg 06/02/17 19:24 06/05/17 21:54 Zofran Injection IVPUSH 4 mg Q6H PRN Administration NAUSEA AND/OR VOMITING Ranitidine HCl 300 mg 06/03/17 18:30 06/06/17 17:30 Zantac - PO Not Given DAILY@1800 ANNA Tiotropium [place] 1 puff 06/03/17 10:00 06/07/17 09:48 Spiriva - IH 1 pfu DAILY ANNA Administration 1. CKD with acute component 2. AAA 3. lung cancer 4. HTN 5. a-fib 6. chol 7. hx hydropneumothorax 8. GI bleed Plan - will stop fluids - cts eval - discussed with pulmonary - recall GI for follow up - repeat bmp in am - elevated creatinine likely from hypotension - monitor BP - avoid fleet enemas - will follow Dr Shearer
[2017-06-07] MEDS: ONDANSETRON 4 MG/2 ML VIAL IVPUSH PRN (12:29)
--- NOTE | 2017-06-07 12:35 | PN ---
Progress Note, Physician History of Present Illness: PULMONARY ALERT,STILL C/O SOB - Current Medication List Current Medications: Active Medications Acetaminophen (Tylenol -) 650 mg PO Q6H PRN PRN Reason: FEVER OR PAIN Last Admin: 06/05/17 05:17 Dose: 650 mg Acetaminophen (Ofirmev Injection -) 1,000 mg IVPB Q6H PRN PRN Reason: FEVER OR PAIN Last Admin: 06/03/17 05:02 Dose: 1,000 mg Albuterol Sulfate (Ventolin Hfa Inhaler -) 2 puff IH Q4H PRN PRN Reason: SHORT OF BREATH/WHEEZING Last Admin: 06/03/17 21:05 Dose: 2 puff Albuterol/Ipratropium (Duoneb -) 1 amp NEB QIDR [facility] Last Admin: 06/07/17 12:00 Dose: 1 amp Apixaban (Eliquis -) 2.5 mg PO BID [facility] Last Admin: 06/07/17 09:47 Dose: 2.5 mg Bacitracin (Bacitracin -) 1 applic TP DAILY [facility] Last Admin: 06/07/17 09:47 Dose: 1 applic Diltiazem HCl (Cardizem Injection -) 30 mg IVPUSH Q6H PRN PRN Reason: TACHYCARDIA Last Admin: 06/02/17 19:20 Dose: 30 mg Diltiazem HCl (Cardizem Cd -) 180 mg PO DAILY [facility] Last Admin: 06/07/17 09:47 Dose: 180 mg Docusate Sodium (Colace -) 100 mg PO TID [facility] Last Admin: 06/07/17 05:35 Dose: Not Given Piperacillin Sod/Tazobactam (Sod 2.25 gm/ Dextrose) 50 mls @ 100 mls/hr IVPB Q8H-IV ANNA Last Admin: 06/07/17 09:46 Dose: 100 mls/hr Lactulose (Cephulac (Oral Use)) 20 gm PO TID ANNA Last Admin: 06/07/17 05:35 Dose: 20 gm Lorazepam (Ativan -) 0.5 mg PO TID PRN PRN Reason: ANXIETY Last Admin: 06/06/17 21:50 Dose: 0.5 mg Methylprednisolone Sodium Succinate (Solu-Medrol -) 60 mg IVPUSH Q6H-IV ANNA Last Admin: 06/07/17 09:47 Dose: 60 mg Ondansetron HCl (Zofran Injection) 4 mg IVPUSH Q6H PRN PRN Reason: NAUSEA AND/OR VOMITING Last Admin: 06/05/17 21:54 Dose: 4 mg Ranitidine HCl (Zantac -) 300 mg PO DAILY@1800 [facility] Last Admin: 06/06/17 17:30 Dose: Not Given Tiotropium [place] (Spiriva -) 1 puff IH DAILY [facility] Last Admin: 06/07/17 09:48 Dose: 1 pfu - Objective Vital Signs: Vital Signs Temperature 98.2 F 06/07/17 08:15 Pulse Rate 62 06/07/17 12:01 Respiratory Rate 18 06/07/17 08:15 Blood Pressure 114/64 06/07/17 08:15 O2 Sat by Pulse Oximetry (%) 100 06/07/17 12:01 Constitutional: Yes: Well Nourished, Calm Eyes: Yes: WNL HENT: Yes: WNL Neck: Yes: Supple Cardiovascular: Yes: Pulse Irregular, S1, S2 Respiratory: Yes: Rales (BIBASILAR CRACKLES) Gastrointestinal: Yes: Normal Bowel Sounds, Soft Extremities: Yes: WNL Edema: No Labs: CBC, BMP 06/07/17 05:28 06/07/17 05:28 INR, PTT INR 1.08 (0.82-1.09) 05/25/17 14:07 - ....Imaging Chest X-ray: Report Reviewed Assessment/Plan A/P AAA S/P EVAR Lung Ca s/p LLL lobectomy COPD Atrial Fibrillation Respiratory distress - iv steroids - inhaled bronchodilators - incentive spirometry - DVT prophylaxis - chest ct - strict I+Os DR CRUZ
--- NOTE | 2017-06-07 15:39 | CONSULT ---
Consult - text type - Consultation Consultation Note: Thoracic Surgery Consult Pt seen and examined. Breathing comfortably. Currently off oxygen. Chronic sterile effusion s/p LULobectomy and is stable. Has seroma that is related to this chronic effusion that is palpable. Has deconditioned. No need for CT scan. Needs to re-condition. Will follow as needed.
[2017-06-07] MEDS: RANITIDINE HCL 150 MG TABLET (FP) PO SCH (17:32)
[2017-06-07] MEDS ORDERED: FAMOTIDINE IV 20 MG/12 ML VIAL IVPUSH ONE (18:30)
--- NOTE | 2017-06-07 19:31 | PN ---
Progress Note, Physician Chief Complaint: AWAKE ALERT GUAC OCCULT POSITIVE - Current Medication List Current Medications: Active Medications Acetaminophen (Tylenol -) 650 mg PO Q6H PRN PRN Reason: FEVER OR PAIN Last Admin: 06/05/17 05:17 Dose: 650 mg Acetaminophen (Ofirmev Injection -) 1,000 mg IVPB Q6H PRN PRN Reason: FEVER OR PAIN Last Admin: 06/03/17 05:02 Dose: 1,000 mg Albuterol Sulfate (Ventolin Hfa Inhaler -) 2 puff IH Q4H PRN PRN Reason: SHORT OF BREATH/WHEEZING Last Admin: 06/03/17 21:05 Dose: 2 puff Albuterol/Ipratropium (Duoneb -) 1 amp NEB QIDR ANNA Last Admin: 06/07/17 12:00 Dose: 1 amp Diltiazem HCl (Cardizem Injection -) 30 mg IVPUSH Q6H PRN PRN Reason: TACHYCARDIA Last Admin: 06/02/17 19:20 Dose: 30 mg Diltiazem HCl (Cardizem Cd -) 180 mg PO DAILY [facility] Last Admin: 06/07/17 09:47 Dose: 180 mg Docusate Sodium (Colace -) 100 mg PO TID ANNA Last Admin: 06/07/17 15:02 Dose: Not Given Piperacillin Sod/Tazobactam (Sod 2.25 gm/ Dextrose) 50 mls @ 100 mls/hr IVPB Q8H-IV ANNA Last Admin: 06/07/17 17:32 Dose: 100 mls/hr Lactulose (Cephulac (Oral Use)) 20 gm PO TID [facility] Last Admin: 06/07/17 15:02 Dose: Not Given Lorazepam (Ativan -) 0.5 mg PO TID PRN PRN Reason: ANXIETY Last Admin: 06/06/17 21:50 Dose: 0.5 mg Methylprednisolone Sodium Succinate (Solu-Medrol -) 60 mg IVPUSH Q6H-IV ANNA Last Admin: 06/07/17 15:02 Dose: 60 mg Polyethylene Glycol (Miralax (For Bowel Prep) -) 255 gm PO ONCE ONE Stop: 06/08/17 08:01 Ranitidine HCl (Zantac -) 300 mg PO DAILY@1800 ANNA Last Admin: 06/07/17 17:32 Dose: Not Given Tiotropium [place] (Spiriva -) 1 puff IH DAILY ANNA Last Admin: 06/07/17 09:48 Dose: 1 pfu - Objective Vital Signs: Vital Signs Temperature 97.9 F 06/07/17 18:00 Pulse Rate 80 06/07/17 18:00 Respiratory Rate 18 06/07/17 18:00 Blood Pressure 128/65 06/07/17 18:00 O2 Sat by Pulse Oximetry (%) 100 06/07/17 12:01 Constitutional: Yes: Mild Distress Eyes: Yes: WNL HENT: Yes: WNL Neck: Yes: WNL Cardiovascular: Yes: Pulse Irregular Respiratory: Yes: Poor Air Entry, SOB Gastrointestinal: Yes: WNL Genitourinary: Yes: WNL Musculoskeletal: Yes: Muscle Weakness Extremities: Yes: WNL Edema: No Peripheral Pulses WNL: Yes Integumentary: Yes: WNL Wound/Incision: Yes: Clean/Dry Neurological: Yes: WNL ...Motor Strength: WNL Psychiatric: Yes: WNL Labs: CBC, BMP 06/07/17 05:28 06/07/17 05:28 INR, PTT INR 1.08 (0.82-1.09) 05/25/17 14:07 Problem List - Problems (1) Melena Code(s): K92.1 - MELENA (2) Stool guaiac positive Code(s): R19.5 - OTHER FECAL ABNORMALITIES (3) Abdominal aneurysm Code(s): I71.4 - ABDOMINAL AORTIC ANEURYSM, WITHOUT RUPTURE (4) Atrial fibrillation Code(s): I48.91 - UNSPECIFIED ATRIAL FIBRILLATION Qualifiers: Atrial fibrillation type: persistent Qualified Code(s): I48.1 - Persistent atrial fibrillation (5) COPD (chronic obstructive pulmonary disease) Code(s): J44.9 - CHRONIC OBSTRUCTIVE PULMONARY DISEASE, UNSPECIFIED Qualifiers: Emphysema type: centrilobular (6) Chronic renal disease Code(s): N18.9 - CHRONIC KIDNEY DISEASE, UNSPECIFIED Qualifiers: Chronic kidney disease stage: stage 4 (severe) Qualified Code(s): N18.4 - Chronic kidney disease, stage 4 (severe) (7) Constipation Code(s): K59.00 - CONSTIPATION, UNSPECIFIED (8) Lung malignancy Code(s): C34.90 - MALIGNANT NEOPLASM OF UNSP PART OF UNSP BRONCHUS OR LUNG Qualifiers: Laterality: left Assessment/Plan DISCUSSED WITH DR BERNAL SCHEDULED FOR EGD/COLONOSCOPY WEDNESDAY STOP ELIQUIS START HEPARIN DRIP TOMORROW COLON PREP PULMONARY EVAL/CARDIOLOGY F/U ECHO REVIEWED
[2017-06-07] MEDS: LORazepam 0.5 MG TABLET PO PRN (21:06)
[2017-06-07] MEDS: ACETAMINOPHEN 325 MG TABLET (FP) PO PRN (21:06)
[2017-06-08] MEDS ORDERED: PT OWN MED DRAWER 7, Y5N ONE ×2 (01:53→17:25)
[2017-06-08] MEDS: PIPERACILLIN/TAZOB 2.25 GM 2.25 GM in DEXTROSE 5%-WATER - 50 ML IVPB SCH ×3 (02:10→18:32)
[2017-06-08] MEDS: methylPREDNISolone NA SUCC 125 MG/2 ML VIAL IVPUSH SCH ×3 (02:10→17:22)
[2017-06-08] MEDS: LACTULOSE 20 GM/30 ML UDC (FOR ORAL USE ONLY) PO SCH (05:05)
[2017-06-08] MEDS: DOCUSATE SODIUM 100 MG CAPSULE (FP) PO SCH ×2 (05:07→14:44)
[2017-06-08] MEDS: ALBUTEROL SO4 2.5/IPRATROPIUM 0.5 INH SOL 3 ML VIAL.NEB. NEB SCH ×2 (05:20)
[2017-06-08] MEDS: ALBUTEROL SO4 18 GM HFA INHALER IH PRN (05:52)
[2017-06-08 07:26] LABS: HEMATOCRIT 28.7 % (32.4-45.2); HEMOGLOBIN 9.5 GM/dL (10.7-15.3); MCH 30.3 pg (25.7-33.7); MCHC 33.1 g/dl (32.0-36.0); MEAN CELL VOLUME 91.4 fl (80-96); MEAN PLT VOLUME 7.8 fl (7.5-11.1); PLATELET COUNT 254 K/MM3 (134-434); RBC 3.14 M/mm3 (3.60-5.2); WHITE BLOOD COUNT 10.2 K/mm3 (4.0-10.0)
[2017-06-08 07:54] LABS: ANION GAP 14 (8-16); BLOOD UREA NITROGEN 77 mg/dL (7-18); CHLORIDE 105 mmol/L (98-107); CO2 19 mmol/L (21-32); GLUCOSE,RANDOM 240 mg/dL (74-106); POTASSIUM 3.9 mmol/L (3.5-5.1); SODIUM 138 mmol/L (136-145)
[2017-06-08 07:55] LABS: CREATININE 3.4 mg/dL (0.55-1.02)
[2017-06-08] MEDS ORDERED: POLYETHYLENE GLYCOL 3350 255 GM BTL PO ONE (08:00)
--- NOTE | 2017-06-08 09:03 | PN ---
Progress Note (short form) - Note Progress Note: \still coughing still SOB for chest ct today Vital Signs Period Temp Pulse Resp BP Sys/Sellers Pulse Ox Last 24 Hr 97.1 F-98.2 F 80-90 16-21 98-132/58-77 98 cor-rrr lungs decreased bs left base abd soft,nt ext no edema CBC, BMP 06/08/17 05:05 06/08/17 05:05 a/p continued sob and cough- unable to expectorate with temp continue steroids/nebs day #3 zosyn- for chest ct today, to d/c antibiotics if no infiltrate noted s/p EVAR1/ s/p LLL lobectomy 03/06/2017 copd ckd Problem List - Problems (1) COPD exacerbation Code(s): J44.1 - CHRONIC OBSTRUCTIVE PULMONARY DISEASE W (ACUTE) EXACERBATION (2) History of endovascular stent graft for abdominal aortic aneurysm (AAA) Code(s): Z95.828 - PRESENCE OF OTHER VASCULAR IMPLANTS AND GRAFTS (3) S/P lobectomy of lung Code(s): Z90.2 - ACQUIRED ABSENCE OF LUNG [PART OF]
[2017-06-08] MEDS: TIOTROPIUM BROMIDE 18 MCG/INH (DEVICE W/ 5 CAPSULES) IH SCH (10:25)
--- NOTE | 2017-06-08 11:14 | PN ---
Progress Note, Physician History of Present Illness: PULMONARY ALERT,C/O SOB WITH MIN EXERTION,-CP,-COUGH - Current Medication List Current Medications: Active Medications Acetaminophen (Tylenol -) 650 mg PO Q6H PRN PRN Reason: FEVER OR PAIN Last Admin: 06/07/17 21:06 Dose: 650 mg Acetaminophen (Ofirmev Injection -) 1,000 mg IVPB Q6H PRN PRN Reason: FEVER OR PAIN Last Admin: 06/03/17 05:02 Dose: 1,000 mg Albuterol Sulfate (Ventolin Hfa Inhaler -) 2 puff IH Q4H PRN PRN Reason: SHORT OF BREATH/WHEEZING Last Admin: 06/08/17 05:52 Dose: 2 puff Albuterol/Ipratropium (Duoneb -) 1 amp NEB QIDR ANNA Last Admin: 06/08/17 05:20 Dose: 1 amp Diltiazem HCl (Cardizem Injection -) 30 mg IVPUSH Q6H PRN PRN Reason: TACHYCARDIA Last Admin: 06/02/17 19:20 Dose: 30 mg Diltiazem HCl (Cardizem Cd -) 180 mg PO DAILY [facility] Last Admin: 06/08/17 10:21 Dose: 180 mg Docusate Sodium (Colace -) 100 mg PO TID [facility] Last Admin: 06/08/17 05:07 Dose: Not Given Piperacillin Sod/Tazobactam (Sod 2.25 gm/ Dextrose) 50 mls @ 100 mls/hr IVPB Q8H-IV ANNA Last Admin: 06/08/17 10:22 Dose: 100 mls/hr Lactulose (Cephulac (Oral Use)) 20 gm PO TID [facility] Last Admin: 06/08/17 05:05 Dose: 20 gm Lorazepam (Ativan -) 0.5 mg PO TID PRN PRN Reason: ANXIETY Last Admin: 06/07/17 21:06 Dose: 0.5 mg Methylprednisolone Sodium Succinate (Solu-Medrol -) 60 mg IVPUSH Q6H-IV ANNA Last Admin: 06/08/17 10:21 Dose: 60 mg Ranitidine HCl (Zantac -) 300 mg PO DAILY@1800 [facility] Last Admin: 06/07/17 17:32 Dose: Not Given Tiotropium [place] (Spiriva -) 1 puff IH DAILY [facility] Last Admin: 06/08/17 10:25 Dose: 1 pfu SO - Objective Vital Signs: Vital Signs Temperature 98.2 F 06/08/17 10:00 Pulse Rate 82 06/08/17 10:00 Respiratory Rate 16 06/08/17 10:00 Blood Pressure 124/66 06/08/17 10:00 O2 Sat by Pulse Oximetry (%) 98 06/07/17 21:00 Constitutional: Yes: Well Nourished, Calm Eyes: Yes: WNL HENT: Yes: WNL Neck: Yes: WNL Cardiovascular: Yes: Pulse Irregular, S1, S2 Respiratory: Yes: Diminished Gastrointestinal: Yes: Normal Bowel Sounds, Soft Extremities: Yes: WNL Edema: No Labs: CBC, BMP 06/08/17 05:05 06/08/17 05:05 INR, PTT INR 1.08 (0.82-1.09) 05/25/17 14:07 Assessment/Plan A/P AAA S/P EVAR Lung Ca s/p LLL lobectomy COPD Atrial Fibrillation Respiratory distress Pulmonary Htn Anemia - continue iv steroids - inhaled bronchodilators - incentive spirometry - DVT prophylaxis - chest ct today - strict I+Os - cardilogy followup DR CRUZ
[2017-06-08] MEDS ORDERED: MAGNESIUM CITRATE 300 ML BOTTLE PO ONE ×3 (12:30→18:00)
[2017-06-08] MEDS: ARFORMOTEROL TARTRATE 15 MCG/2 ML VIAL NEB SCH ×2 (13:04→22:00)
--- NOTE | 2017-06-08 16:08 | PN ---
Progress Note, Physician History of Present Illness: Pt seen and examined at bedside. She is going for a colonoscopy tomorrow. - Current Medication List Current Medications: Active Medications Acetaminophen (Tylenol -) 650 mg PO Q6H PRN PRN Reason: FEVER OR PAIN Last Admin: 06/07/17 21:06 Dose: 650 mg Acetaminophen (Ofirmev Injection -) 1,000 mg IVPB Q6H PRN PRN Reason: FEVER OR PAIN Last Admin: 06/03/17 05:02 Dose: 1,000 mg Albuterol Sulfate (Ventolin Hfa Inhaler -) 2 puff IH Q4H PRN PRN Reason: SHORT OF BREATH/WHEEZING Last Admin: 06/08/17 05:52 Dose: 2 puff Arformoterol Tartrate (Brovana (Restricted To Pulmonology/Resp) -) 1 amp NEB BID ANNA Last Admin: 06/08/17 13:04 Dose: 1 amp Diltiazem HCl (Cardizem Injection -) 30 mg IVPUSH Q6H PRN PRN Reason: TACHYCARDIA Last Admin: 06/02/17 19:20 Dose: 30 mg Diltiazem HCl (Cardizem Cd -) 180 mg PO DAILY [facility] Last Admin: 06/08/17 10:21 Dose: 180 mg Docusate Sodium (Colace -) 100 mg PO TID [facility] Last Admin: 06/08/17 05:07 Dose: Not Given Piperacillin Sod/Tazobactam (Sod 2.25 gm/ Dextrose) 50 mls @ 100 mls/hr IVPB Q8H-IV [facility] Last Admin: 06/08/17 10:22 Dose: 100 mls/hr Lorazepam (Ativan -) 0.5 mg PO TID PRN PRN Reason: ANXIETY Last Admin: 06/07/17 21:06 Dose: 0.5 mg Magnesium Citrate (Citroma -) 300 ml PO ONCE ONE Stop: 06/08/17 18:01 Methylprednisolone Sodium Succinate (Solu-Medrol -) 60 mg IVPUSH Q8H-IV ANNA Ranitidine HCl (Zantac -) 300 mg PO DAILY@1800 [facility] Last Admin: 06/07/17 17:32 Dose: Not Given Tiotropium [place] (Spiriva -) 1 puff IH DAILY [facility] Last Admin: 06/08/17 10:25 Dose: 1 pfu - Objective Vital Signs: Vital Signs Temperature 98.4 F 06/08/17 14:00 Pulse Rate 99 H 06/08/17 14:00 Respiratory Rate 16 06/08/17 14:00 Blood Pressure 115/70 06/08/17 14:00 O2 Sat by Pulse Oximetry (%) 96 06/08/17 09:00 Constitutional: Yes: Calm Eyes: Yes: Conjunctiva Clear HENT: Yes: Atraumatic Cardiovascular: Yes: S1, S2 Respiratory: Yes: On Nasal O2 Gastrointestinal: Yes: Soft Genitourinary: Yes: WNL Musculoskeletal: Yes: WNL Edema: No Neurological: Yes: Oriented Psychiatric: Yes: Oriented Labs: CBC, BMP 06/08/17 05:05 06/08/17 05:05 INR, PTT INR 1.08 (0.82-1.09) 05/25/17 14:07 Problem List - Problems (1) Abdominal aortic aneurysm (AAA) Code(s): I71.4 - ABDOMINAL AORTIC ANEURYSM, WITHOUT RUPTURE Qualifiers: Presence of rupture: without rupture Qualified Code(s): I71.4 - Abdominal aortic aneurysm, without rupture (2) Stool guaiac positive Code(s): R19.5 - OTHER FECAL ABNORMALITIES (3) Atrial fibrillation Code(s): I48.91 - UNSPECIFIED ATRIAL FIBRILLATION Qualifiers: Atrial fibrillation type: persistent Qualified Code(s): I48.1 - Persistent atrial fibrillation (4) COPD (chronic obstructive pulmonary disease) Code(s): J44.9 - CHRONIC OBSTRUCTIVE PULMONARY DISEASE, UNSPECIFIED Qualifiers: Emphysema type: centrilobular (5) Chronic renal disease Code(s): N18.9 - CHRONIC KIDNEY DISEASE, UNSPECIFIED Qualifiers: Chronic kidney disease stage: stage 4 (severe) Qualified Code(s): N18.4 - Chronic kidney disease, stage 4 (severe) (6) Pneumothorax Code(s): J93.9 - PNEUMOTHORAX, UNSPECIFIED Qualifiers: Pneumothorax type: postprocedural Qualified Code(s): J95.811 - Postprocedural pneumothorax (7) Tobacco use Code(s): Z72.0 - TOBACCO USE Assessment/Plan Current Medications Generic Name Dose Route Start Last Admin Trade Name Freq PRN Reason Stop Dose Admin Acetaminophen 650 mg 06/02/17 19:24 06/07/17 21:06 Tylenol - PO 650 mg Q6H PRN Administration FEVER OR PAIN Acetaminophen 1,000 mg 06/02/17 22:51 06/03/17 05:02 Ofirmev Injection - IVPB 1,000 mg Q6H PRN Administration FEVER OR PAIN Albuterol Sulfate 2 puff 06/02/17 19:24 06/08/17 05:52 Ventolin Hfa Inhaler - IH 2 puff Q4H PRN Administration SHORT OF BREATH/WHEEZING Arformoterol Tartrate 1 amp 06/08/17 11:15 06/08/17 13:04 Brovana (Restricted To Pulmonology/Resp) - NEB 1 amp BID ANNA Administration Diltiazem HCl 30 mg 06/02/17 19:16 06/02/17 19:20 Cardizem Injection - IVPUSH 30 mg Q6H PRN Administration TACHYCARDIA Diltiazem HCl 180 mg 06/03/17 10:00 06/08/17 10:21 Cardizem Cd - PO 180 mg DAILY ANNA Administration Docusate Sodium 100 mg 06/02/17 22:00 06/08/17 05:07 Colace - PO Not Given TID ANNA Piperacillin Sod/Tazobactam 50 mls @ 100 mls/hr 06/05/17 12:15 06/08/17 10:22 Sod 2.25 gm/ Dextrose IVPB 100 mls/hr Q8H-IV ANNA Administration Lorazepam 0.5 mg 06/02/17 19:24 06/07/17 21:06 Ativan - PO 0.5 mg TID PRN Administration ANXIETY Magnesium Citrate 300 ml 06/08/17 18:00 Citroma - PO 06/08/17 18:01 ONCE ONE Methylprednisolone Sodium Succinate 60 mg 06/08/17 18:00 Solu-Medrol - IVPUSH Q8H-IV ANNA Ranitidine HCl 300 mg 06/03/17 18:30 06/07/17 17:32 Zantac - PO Not Given DAILY@1800 ANNA Tiotropium [place] 1 puff 06/03/17 10:00 06/08/17 10:25 Spiriva - IH 1 pfu DAILY [facility] Administration 1. CKD with acute component 2. AAA 3. lung cancer 4. HTN 5. a-fib 6. chol 7. hx hydropneumothorax 8. GI bleed Plan - pt going for colonoscopy in am - will give fluids overnight - cts eval appreciated - repeat bmp in am - elevated creatinine likely from hypotension - monitor BP - will follow Dr Shearer
--- NOTE | 2017-06-08 16:08 | PN ---
Progress Note, Physician Chief Complaint: AWAKE ALERT NAD EGD/COLONOSCOPY IN AM - Current Medication List Current Medications: Active Medications Acetaminophen (Tylenol -) 650 mg PO Q6H PRN PRN Reason: FEVER OR PAIN Last Admin: 06/07/17 21:06 Dose: 650 mg Acetaminophen (Ofirmev Injection -) 1,000 mg IVPB Q6H PRN PRN Reason: FEVER OR PAIN Last Admin: 06/03/17 05:02 Dose: 1,000 mg Albuterol Sulfate (Ventolin Hfa Inhaler -) 2 puff IH Q4H PRN PRN Reason: SHORT OF BREATH/WHEEZING Last Admin: 06/08/17 05:52 Dose: 2 puff Arformoterol Tartrate (Brovana (Restricted To Pulmonology/Resp) -) 1 amp NEB BID [facility] Last Admin: 06/08/17 13:04 Dose: 1 amp Diltiazem HCl (Cardizem Injection -) 30 mg IVPUSH Q6H PRN PRN Reason: TACHYCARDIA Last Admin: 06/02/17 19:20 Dose: 30 mg Diltiazem HCl (Cardizem Cd -) 180 mg PO DAILY [facility] Last Admin: 06/08/17 10:21 Dose: 180 mg Docusate Sodium (Colace -) 100 mg PO TID ANNA Last Admin: 06/08/17 05:07 Dose: Not Given Piperacillin Sod/Tazobactam (Sod 2.25 gm/ Dextrose) 50 mls @ 100 mls/hr IVPB Q8H-IV ANNA Last Admin: 06/08/17 10:22 Dose: 100 mls/hr Lorazepam (Ativan -) 0.5 mg PO TID PRN PRN Reason: ANXIETY Last Admin: 06/07/17 21:06 Dose: 0.5 mg Magnesium Citrate (Citroma -) 300 ml PO ONCE ONE Stop: 06/08/17 18:01 Methylprednisolone Sodium Succinate (Solu-Medrol -) 60 mg IVPUSH Q8H-IV ANNA Ranitidine HCl (Zantac -) 300 mg PO DAILY@1800 ANNA Last Admin: 06/07/17 17:32 Dose: Not Given Tiotropium [place] (Spiriva -) 1 puff IH DAILY [facility] Last Admin: 06/08/17 10:25 Dose: 1 pfu - Objective Vital Signs: Vital Signs Temperature 98.4 F 06/08/17 14:00 Pulse Rate 99 H 06/08/17 14:00 Respiratory Rate 16 06/08/17 14:00 Blood Pressure 115/70 06/08/17 14:00 O2 Sat by Pulse Oximetry (%) 96 06/08/17 09:00 Constitutional: Yes: No Distress Eyes: Yes: WNL HENT: Yes: WNL Neck: Yes: WNL Cardiovascular: Yes: WNL Respiratory: Yes: WNL Gastrointestinal: Yes: Tenderness Genitourinary: Yes: WNL Musculoskeletal: Yes: Muscle Weakness Extremities: Yes: WNL Edema: No Peripheral Pulses WNL: Yes Integumentary: Yes: WNL Wound/Incision: Yes: Clean/Dry Neurological: Yes: Pre-Existing Deficit, Unsteady Gait ...Motor Strength: LLE, RLE Psychiatric: Yes: WNL Labs: CBC, BMP 06/08/17 05:05 06/08/17 05:05 INR, PTT INR 1.08 (0.82-1.09) 05/25/17 14:07 Problem List - Problems (1) Melena Code(s): K92.1 - MELENA (2) Stool guaiac positive Code(s): R19.5 - OTHER FECAL ABNORMALITIES (3) Abdominal aneurysm Code(s): I71.4 - ABDOMINAL AORTIC ANEURYSM, WITHOUT RUPTURE (4) Atrial fibrillation Code(s): I48.91 - UNSPECIFIED ATRIAL FIBRILLATION Qualifiers: Qualified Code(s): I48.1 - Persistent atrial fibrillation (5) COPD (chronic obstructive pulmonary disease) Code(s): J44.9 - CHRONIC OBSTRUCTIVE PULMONARY DISEASE, UNSPECIFIED Qualifiers: Qualified Code(s): J43.2 - Centrilobular emphysema (6) Chronic renal disease Code(s): N18.9 - CHRONIC KIDNEY DISEASE, UNSPECIFIED Qualifiers: Qualified Code(s): N18.4 - Chronic kidney disease, stage 4 (severe) (7) Constipation Code(s): K59.00 - CONSTIPATION, UNSPECIFIED (8) Lung malignancy Code(s): C34.90 - MALIGNANT NEOPLASM OF UNSP PART OF UNSP BRONCHUS OR LUNG Assessment/Plan COLON PREP PER GI AND RENAL SNF WHEN DISCHARGED AWAIT PATHOLOGY REPORT PAIN CONTROL HEPARIN IV AFTER COLONOSCOPY
[2017-06-08] MEDS ORDERED: SODIUM CHLORIDE 0.45% 1,000 ML IV SCH (16:15)
[2017-06-08] MEDS ORDERED: BISACODYL 5 MG TABLET.DR (FP) PO ONE (16:30)
[2017-06-08] MEDS: RANITIDINE HCL 150 MG TABLET (FP) PO SCH (18:31)
[2017-06-08] MEDS ORDERED: ONDANSETRON 4 MG/2 ML VIAL IVPUSH PRN (19:34)
[2017-06-09] MEDS ORDERED: PT OWN MED DRAWER 7, Y5N ONE ×3 (01:34→17:02)
[2017-06-09] MEDS: methylPREDNISolone NA SUCC 125 MG/2 ML VIAL IVPUSH SCH ×3 (01:39→17:14)
[2017-06-09] MEDS: PIPERACILLIN/TAZOB 2.25 GM 2.25 GM in DEXTROSE 5%-WATER - 50 ML IVPB SCH ×3 (01:39→17:14)
[2017-06-09 08:47] LABS: ANION GAP 9 (8-16); BLOOD UREA NITROGEN 81 mg/dL (7-18); CALCIUM 8.2 mg/dL (8.5-10.1); CHLORIDE 101 mmol/L (98-107); CO2 26 mmol/L (21-32); CREATININE 3.3 mg/dL (0.55-1.02); GLUCOSE,RANDOM 267 mg/dL (74-106); SODIUM 136 mmol/L (136-145)
[2017-06-09] MEDS: LORazepam 0.5 MG TABLET PO PRN ×2 (09:15→21:03)
[2017-06-09] MEDS ORDERED: MINERAL OIL ENEMA 133 ML ENEMA PR ONE ×3 (10:00→10:45)
[2017-06-09] MEDS: ARFORMOTEROL TARTRATE 15 MCG/2 ML VIAL NEB SCH ×2 (10:10→22:00)
[2017-06-09] MEDS: ALBUTEROL SO4 18 GM HFA INHALER IH PRN (11:03)
[2017-06-09] MEDS: TIOTROPIUM BROMIDE 18 MCG/INH (DEVICE W/ 5 CAPSULES) IH SCH (11:04)
--- NOTE | 2017-06-09 12:46 | PN ---
Progress Note, Physician History of Present Illness: Pt seen and examined at bedside. She is awake and alert. She is going for endoscopy today. - Current Medication List Current Medications: Active Medications Acetaminophen (Tylenol -) 650 mg PO Q6H PRN PRN Reason: FEVER OR PAIN Last Admin: 06/07/17 21:06 Dose: 650 mg Acetaminophen (Ofirmev Injection -) 1,000 mg IVPB Q6H PRN PRN Reason: FEVER OR PAIN Last Admin: 06/03/17 05:02 Dose: 1,000 mg Albuterol Sulfate (Ventolin Hfa Inhaler -) 2 puff IH Q4H PRN PRN Reason: SHORT OF BREATH/WHEEZING Last Admin: 06/09/17 11:03 Dose: 2 puff Arformoterol Tartrate (Brovana (Restricted To Pulmonology/Resp) -) 1 amp NEB BID ANNA Last Admin: 06/08/17 22:00 Dose: 1 amp Diltiazem HCl (Cardizem Injection -) 30 mg IVPUSH Q6H PRN PRN Reason: TACHYCARDIA Last Admin: 06/02/17 19:20 Dose: 30 mg Diltiazem HCl (Cardizem Cd -) 180 mg PO DAILY ANNA Last Admin: 06/09/17 09:11 Dose: 180 mg Docusate Sodium (Colace -) 100 mg PO TID ANNA Last Admin: 06/08/17 14:44 Dose: Not Given Piperacillin Sod/Tazobactam (Sod 2.25 gm/ Dextrose) 50 mls @ 100 mls/hr IVPB Q8H-IV ANNA Last Admin: 06/09/17 09:15 Dose: 100 mls/hr Sodium Chloride (1/2 Normal Saline) 1,000 mls @ 50 mls/hr IV ASDIR ANNA Stop: 06/09/17 16:08 Last Admin: 06/08/17 18:31 Dose: 50 mls/hr Lorazepam (Ativan -) 0.5 mg PO TID PRN PRN Reason: ANXIETY Last Admin: 06/09/17 09:15 Dose: 0.5 mg Methylprednisolone Sodium Succinate (Solu-Medrol -) 60 mg IVPUSH Q8H-IV ANNA Last Admin: 06/09/17 11:06 Dose: 60 mg Ondansetron HCl (Zofran Injection) 4 mg IVPUSH Q8H PRN PRN Reason: NAUSEA AND/OR VOMITING Last Admin: 06/08/17 19:50 Dose: 4 mg Ranitidine HCl (Zantac -) 300 mg PO DAILY@1800 [facility] Last Admin: 06/08/17 18:31 Dose: Not Given Tiotropium [place] (Spiriva -) 1 puff IH DAILY [facility] Last Admin: 06/09/17 11:04 Dose: 1 pfu - Objective Vital Signs: Vital Signs Temperature 98.2 F 06/09/17 07:10 Pulse Rate 88 06/09/17 07:10 Respiratory Rate 20 06/09/17 07:10 Blood Pressure 140/92 06/09/17 07:10 O2 Sat by Pulse Oximetry (%) 96 06/09/17 09:00 Constitutional: Yes: Anxious Eyes: Yes: Conjunctiva Clear Cardiovascular: Yes: S1, S2 Respiratory: Yes: Wheezes Gastrointestinal: Yes: Soft Genitourinary: Yes: WNL Musculoskeletal: Yes: WNL Edema: No Neurological: Yes: Oriented Psychiatric: Yes: Oriented Labs: CBC, BMP 06/08/17 05:05 06/09/17 05:45 INR, PTT INR 1.08 (0.82-1.09) 05/25/17 14:07 Problem List - Problems (1) Abdominal aortic aneurysm (AAA) Code(s): I71.4 - ABDOMINAL AORTIC ANEURYSM, WITHOUT RUPTURE Qualifiers: Presence of rupture: without rupture Qualified Code(s): I71.4 - Abdominal aortic aneurysm, without rupture (2) Stool guaiac positive Code(s): R19.5 - OTHER FECAL ABNORMALITIES (3) Atrial fibrillation Code(s): I48.91 - UNSPECIFIED ATRIAL FIBRILLATION Qualifiers: Atrial fibrillation type: persistent Qualified Code(s): I48.1 - Persistent atrial fibrillation (4) COPD (chronic obstructive pulmonary disease) Code(s): J44.9 - CHRONIC OBSTRUCTIVE PULMONARY DISEASE, UNSPECIFIED Qualifiers: Emphysema type: centrilobular (5) Chronic renal disease Code(s): N18.9 - CHRONIC KIDNEY DISEASE, UNSPECIFIED Qualifiers: Chronic kidney disease stage: stage 4 (severe) Qualified Code(s): N18.4 - Chronic kidney disease, stage 4 (severe) (6) Pneumothorax Code(s): J93.9 - PNEUMOTHORAX, UNSPECIFIED Qualifiers: Pneumothorax type: postprocedural Qualified Code(s): J95.811 - Postprocedural pneumothorax (7) Tobacco use Code(s): Z72.0 - TOBACCO USE Assessment/Plan Current Medications Generic Name Dose Route Start Last Admin Trade Name Freq PRN Reason Stop Dose Admin Acetaminophen 650 mg 06/02/17 19:24 06/07/17 21:06 Tylenol - PO 650 mg Q6H PRN Administration FEVER OR PAIN Acetaminophen 1,000 mg 06/02/17 22:51 06/03/17 05:02 Ofirmev Injection - IVPB 1,000 mg Q6H PRN Administration FEVER OR PAIN Albuterol Sulfate 2 puff 06/02/17 19:24 06/09/17 11:03 Ventolin Hfa Inhaler - IH 2 puff Q4H PRN Administration SHORT OF BREATH/WHEEZING Arformoterol Tartrate 1 amp 06/08/17 11:15 06/08/17 22:00 Brovana (Restricted To Pulmonology/Resp) - NEB 1 amp BID ANNA Administration Diltiazem HCl 30 mg 06/02/17 19:16 06/02/17 19:20 Cardizem Injection - IVPUSH 30 mg Q6H PRN Administration TACHYCARDIA Diltiazem HCl 180 mg 06/03/17 10:00 06/09/17 09:11 Cardizem Cd - PO 180 mg DAILY ANNA Administration Docusate Sodium 100 mg 06/02/17 22:00 06/08/17 14:44 Colace - PO Not Given TID ANNA Piperacillin Sod/Tazobactam 50 mls @ 100 mls/hr 06/05/17 12:15 06/09/17 09:15 Sod 2.25 gm/ Dextrose IVPB 100 mls/hr Q8H-IV ANNA Administration Sodium Chloride 1,000 mls @ 50 mls/hr 06/08/17 16:15 06/08/17 18:31 1/2 Normal Saline IV 06/09/17 16:08 50 mls/hr ASDIR ANNA Administration Lorazepam 0.5 mg 06/02/17 19:24 06/09/17 09:15 Ativan - PO 0.5 mg TID PRN Administration ANXIETY Methylprednisolone Sodium Succinate 60 mg 06/08/17 18:00 06/09/17 11:06 Solu-Medrol - IVPUSH 60 mg Q8H-IV ANNA Administration Ondansetron HCl 4 mg 06/08/17 19:34 06/08/17 19:50 Zofran Injection IVPUSH 4 mg Q8H PRN Administration NAUSEA AND/OR VOMITING Ranitidine HCl 300 mg 06/03/17 18:30 06/08/17 18:31 Zantac - PO Not Given DAILY@1800 ANNA Tiotropium [place] 1 puff 06/03/17 10:00 06/09/17 11:04 Spiriva - IH 1 pfu DAILY ANNA Administration 1. CKD with acute component 2. AAA 3. lung cancer 4. HTN 5. a-fib 6. chol 7. hx hydropneumothorax 8. GI bleed Plan - renal function is improving - pt scheduled for endoscopy today - repeat labs in am - stop fluids once she starts eating - elevated creatinine likely from hypotension - monitor BP - will follow Dr Shearer
--- NOTE | 2017-06-09 12:52 | PN ---
Progress Note (short form) - Note Progress Note: PULMONARY GOING FOR EGD/COLON ON O2 VSS/AFEBRILE ANICTERIC DIMINISHED BREATH SOUNDS S1S2 IRREGULAR BS+ SOFT NO EDEMA LABS/MEDS/NOTES/CXR REVIEWED AAA Lung Ca s/p LLL lobectomy COPD Atrial Fibrillation - inhaled bronchodilators - incentive spirometry - s/p Endovascular AAA repair - Awaiting GI endoscopies Jayal ADHIKARI MD Problem List - Problems (1) Abdominal aortic aneurysm (AAA) Code(s): I71.4 - ABDOMINAL AORTIC ANEURYSM, WITHOUT RUPTURE Qualifiers: Presence of rupture: without rupture Qualified Code(s): I71.4 - Abdominal aortic aneurysm, without rupture (2) Melena Code(s): K92.1 - MELENA (3) Atrial fibrillation Code(s): I48.91 - UNSPECIFIED ATRIAL FIBRILLATION Qualifiers: Atrial fibrillation type: persistent Qualified Code(s): I48.1 - Persistent atrial fibrillation (4) COPD (chronic obstructive pulmonary disease) Code(s): J44.9 - CHRONIC OBSTRUCTIVE PULMONARY DISEASE, UNSPECIFIED Qualifiers: Emphysema type: centrilobular (5) Chronic renal disease Code(s): N18.9 - CHRONIC KIDNEY DISEASE, UNSPECIFIED Qualifiers: Chronic kidney disease stage: stage 4 (severe) Qualified Code(s): N18.4 - Chronic kidney disease, stage 4 (severe) (6) Constipation Code(s): K59.00 - CONSTIPATION, UNSPECIFIED
[2017-06-09] MEDS ORDERED: PROPOFOL 20 ML ONE (13:35)
--- NOTE | 2017-06-09 15:56 | PN ---
Progress Note, Physician Chief Complaint: AWAKE ALERT SOME BOWEL MOVEMENTS BUT NOT PREPPED COMPLETELY - Current Medication List Current Medications: Active Medications Acetaminophen (Tylenol -) 650 mg PO Q6H PRN PRN Reason: FEVER OR PAIN Last Admin: 06/07/17 21:06 Dose: 650 mg Acetaminophen (Ofirmev Injection -) 1,000 mg IVPB Q6H PRN PRN Reason: FEVER OR PAIN Last Admin: 06/03/17 05:02 Dose: 1,000 mg Albuterol Sulfate (Ventolin Hfa Inhaler -) 2 puff IH Q4H PRN PRN Reason: SHORT OF BREATH/WHEEZING Last Admin: 06/09/17 11:03 Dose: 2 puff Arformoterol Tartrate (Brovana (Restricted To Pulmonology/Resp) -) 1 amp NEB BID ANNA Last Admin: 06/09/17 10:10 Dose: 1 amp Diltiazem HCl (Cardizem Injection -) 30 mg IVPUSH Q6H PRN PRN Reason: TACHYCARDIA Last Admin: 06/02/17 19:20 Dose: 30 mg Diltiazem HCl (Cardizem Cd -) 180 mg PO DAILY ANNA Last Admin: 06/09/17 09:11 Dose: 180 mg Docusate Sodium (Colace -) 100 mg PO TID ANNA Last Admin: 06/08/17 14:44 Dose: Not Given Piperacillin Sod/Tazobactam (Sod 2.25 gm/ Dextrose) 50 mls @ 100 mls/hr IVPB Q8H-IV ANNA Last Admin: 06/09/17 09:15 Dose: 100 mls/hr Sodium Chloride (1/2 Normal Saline) 1,000 mls @ 50 mls/hr IV ASDIR ANNA Stop: 06/09/17 16:08 Last Admin: 06/08/17 18:31 Dose: 50 mls/hr Lorazepam (Ativan -) 0.5 mg PO TID PRN PRN Reason: ANXIETY Last Admin: 06/09/17 09:15 Dose: 0.5 mg Methylprednisolone Sodium Succinate (Solu-Medrol -) 60 mg IVPUSH Q8H-IV ANNA Last Admin: 06/09/17 11:06 Dose: 60 mg Ondansetron HCl (Zofran Injection) 4 mg IVPUSH Q8H PRN PRN Reason: NAUSEA AND/OR VOMITING Last Admin: 12/12/17 19:50 Dose: 4 mg Ranitidine HCl (Zantac -) 300 mg PO DAILY@1800 [facility] Last Admin: 06/08/17 18:31 Dose: Not Given Tiotropium [place] (Spiriva -) 1 puff IH DAILY [facility] Last Admin: 06/09/17 11:04 Dose: 1 pfu - Objective Vital Signs: Vital Signs Temperature 97.4 F L 06/09/17 14:53 Pulse Rate 92 H 06/09/17 14:53 Respiratory Rate 20 06/09/17 14:53 Blood Pressure 132/92 06/09/17 14:53 O2 Sat by Pulse Oximetry (%) 92 L 06/09/17 14:53 Constitutional: Yes: Mild Distress Eyes: Yes: WNL HENT: Yes: WNL Neck: Yes: WNL Cardiovascular: Yes: WNL Respiratory: Yes: WNL Gastrointestinal: Yes: WNL Genitourinary: Yes: WNL Musculoskeletal: Yes: WNL Extremities: Yes: WNL Edema: No Peripheral Pulses WNL: Yes Integumentary: Yes: WNL Wound/Incision: Yes: Clean/Dry Neurological: Yes: WNL ...Motor Strength: WNL Psychiatric: Yes: WNL Labs: CBC, BMP 06/08/17 05:05 06/09/17 05:45 INR, PTT INR 1.08 (0.82-1.09) 05/25/17 14:07 Problem List - Problems (1) Melena Code(s): K92.1 - MELENA (2) Stool guaiac positive Code(s): R19.5 - OTHER FECAL ABNORMALITIES (3) Abdominal aneurysm Code(s): I71.4 - ABDOMINAL AORTIC ANEURYSM, WITHOUT RUPTURE (4) Atrial fibrillation Code(s): I48.91 - UNSPECIFIED ATRIAL FIBRILLATION Qualifiers: Atrial fibrillation type: persistent Qualified Code(s): I48.1 - Persistent atrial fibrillation (5) COPD (chronic obstructive pulmonary disease) Code(s): J44.9 - CHRONIC OBSTRUCTIVE PULMONARY DISEASE, UNSPECIFIED Qualifiers: Emphysema type: centrilobular (6) Chronic renal disease Code(s): N18.9 - CHRONIC KIDNEY DISEASE, UNSPECIFIED Qualifiers: Chronic kidney disease stage: stage 4 (severe) Qualified Code(s): N18.4 - Chronic kidney disease, stage 4 (severe) (7) Constipation Code(s): K59.00 - CONSTIPATION, UNSPECIFIED (8) Lung malignancy Code(s): C34.90 - MALIGNANT NEOPLASM OF UNSP PART OF UNSP BRONCHUS OR LUNG Qualifiers: Laterality: left Assessment/Plan GI WORKUP IN PROGRESS MAG [facility] CONTINUED CHECK LABS PT JONAH KD FOR SNF
[2017-06-09] MEDS: RANITIDINE HCL 150 MG TABLET (FP) PO SCH (17:14)
[2017-06-09] MEDS: MAGNESIUM CITRATE 300 ML BOTTLE PO SCH ×3 (17:42→23:19)
[2017-06-09] MEDS ORDERED: MINERAL OIL ENEMA 133 ML ENEMA PR SCH (18:00)
--- NOTE | 2017-06-09 19:01 | PN ---
Progress Note (short form) - Note Progress Note: s/p EGD--patient noted to have multiple mucosal breaks with spontaneous bleeding in stomach, there were few avms, there were coffee ground material in the fundus, Aby esophagitis was noted CBC,CMP, WBC 10.2 K/mm3 (4.0-10.0) H 06/08/17 05:05 RBC 3.14 M/mm3 (3.60-5.2) L 06/08/17 05:05 Hgb 9.5 GM/dL (10.7-15.3) L 06/08/17 05:05 Hct 28.7 % (32.4-45.2) L 06/08/17 05:05 MCV 91.4 fl (80-96) 06/08/17 05:05 MCH 30.3 pg (25.7-33.7) 06/08/17 05:05 MCHC 33.1 g/dl (32.0-36.0) 06/08/17 05:05 RDW 15.0 % (11.6-15.6) 06/08/17 05:05 Plt Count 254 K/MM3 (134-434) 06/08/17 05:05 MPV 7.8 fl (7.5-11.1) 06/08/17 05:05 Total Counted 100 06/02/17 06:00 Neutrophils % No Result Required. 06/07/17 05:28 Neutrophils % (Manual) 90.9 % (42.8-82.8) H* 06/07/17 05:28 Band Neutrophils % 0.0 % 06/07/17 05:28 Lymphocytes % No Result Required. 06/07/17 05:28 Lymphocytes % (Manual) 2.0 % (8-40) L D 06/07/17 05:28 Monocytes % 7.2 % (3.8-10.2) 05/25/17 13:15 Monocytes % (Manual) 4 % (3.8-10.2) 06/07/17 05:28 Eosinophils % 0.6 % (0-4.5) D 05/25/17 13:15 Basophils % 0.3 % (0-2.0) 05/25/17 13:15 Basophils % (Manual) 0.0 % (0-2.0) 06/07/17 05:28 Myelocytes % (Man) 1 % (0-2) D 06/07/17 05:28 Nucleated RBC % 1 % (0-0) H 06/07/17 05:28 Metamyelocytes 2 % (0-2) D 06/07/17 05:28 Hypochromia 0 06/07/17 05:28 Toxic Granulation 0 06/07/17 05:28 Dohle Bodies 0 06/07/17 05:28 Platelet Estimate Normal 06/07/17 05:28 Polychromasia 0 06/07/17 05:28 Poikilocytosis 0 06/07/17 05:28 Basophilic Stippling 0 06/07/17 05:28 Anisocytosis 0 06/07/17 05:28 Microcytosis 0 06/07/17 05:28 Macrocytosis 0 06/07/17 05:28 Spherocytes 0 06/07/17 05:28 Sickle Cells 0 06/07/17 05:28 Target Cells 0 06/07/17 05:28 Tear Drop Cells 0 06/07/17 05:28 Ovalocytes 0 06/07/17 05:28 Stomatocytes 0 06/07/17 05:28 Helmet Cells 0 06/07/17 05:28 Loco-Llano Bodies 0 06/07/17 05:28 [place] Rings 0 06/07/17 05:28 Dexter Cells 0 06/07/17 05:28 Acanthocytes (Spur) 0 06/07/17 05:28 Fragmented RBCs 0 06/07/17 05:28 Schistocytes 0 06/07/17 05:28 Sodium 136 mmol/L (136-145) 06/09/17 05:45 Potassium 4.0 mmol/L (3.5-5.1) 06/09/17 05:45 Chloride 101 mmol/L (98-107) 06/09/17 05:45 Carbon Dioxide 26 mmol/L (21-32) D 06/09/17 05:45 Anion Gap 9 (8-16) 06/09/17 05:45 BUN 81 mg/dL (7-18) H 06/09/17 05:45 Creatinine 3.3 mg/dL (0.55-1.02) H 06/09/17 05:45 Creat Clearance w eGFR 12.73 (>60) 06/07/17 05:28 Random Glucose 267 mg/dL (74-106) H 06/09/17 05:45 Lactic Acid 1.0 mmol/L (0.4-2.0) 06/02/17 19:15 Calcium 8.2 mg/dL (8.5-10.1) L 06/09/17 05:45 Phosphorus 5.8 mg/dL (2.5-4.9) H D 06/04/17 05:05 Magnesium 2.0 mg/dL (1.8-2.4) 06/04/17 05:05 Total Bilirubin 0.2 mg/dL (0.2-1.0) 06/07/17 05:28 AST 6 U/L (15-37) L D 06/07/17 05:28 ALT 12 U/L (12-78) 06/07/17 05:28 Alkaline Phosphatase 61 U/L (45-117) D 06/07/17 05:28 B-Natriuretic Peptide 7287.04 pg/ml (5-450) H 05/25/17 13:15 Total Protein 5.6 g/dl (6.4-8.2) L 06/07/17 05:28 Albumin 2.3 g/dl (3.4-5.0) L 06/07/17 05:28 Lipase 319 U/L (73-393) 05/25/17 13:15
[2017-06-09] MEDS: FLUCONAZOLE 100 MG/NS 50 ML IVPB SCH (21:02)
[2017-06-10] MEDS: ALBUTEROL SO4 0.083% IH SOL 2.5 MG/3 ML VIAL.NEB. NEB PRN ×2 (00:10→05:30)
[2017-06-10] MEDS ORDERED: ALBUTEROL SO4 0.083% IH SOL 2.5 MG/3 ML VIAL.NEB. NEB ONE (00:12)
[2017-06-10] MEDS: methylPREDNISolone NA SUCC 125 MG/2 ML VIAL IVPUSH SCH ×2 (01:00→09:50)
[2017-06-10] MEDS ORDERED: PT OWN MED DRAWER 7, Y5N ONE ×3 (02:34→16:56)
[2017-06-10] MEDS: PIPERACILLIN/TAZOB 2.25 GM 2.25 GM in DEXTROSE 5%-WATER - 50 ML IVPB SCH ×3 (02:35→17:30)
[2017-06-10] MEDS: MINERAL OIL ENEMA 133 ML ENEMA PR SCH ×2 (04:10→06:15)
[2017-06-10] MEDS: LORazepam 0.5 MG TABLET PO PRN ×2 (05:27→13:50)
[2017-06-10 07:53] LABS: ANION GAP 9 (8-16); BLOOD UREA NITROGEN 98 mg/dL (7-18); CALCIUM 7.8 mg/dL (8.5-10.1); CHLORIDE 98 mmol/L (98-107); CO2 29 mmol/L (21-32); CREATININE 3.4 mg/dL (0.55-1.02); POTASSIUM 3.9 mmol/L (3.5-5.1); SODIUM 136 mmol/L (136-145)
[2017-06-10 08:29] LABS: GLUCOSE,RANDOM 354 mg/dL (74-106)
[2017-06-10] MEDS: TIOTROPIUM BROMIDE 18 MCG/INH (DEVICE W/ 5 CAPSULES) IH SCH (09:46)
[2017-06-10] MEDS: ALBUTEROL SO4 18 GM HFA INHALER IH PRN (09:48)
[2017-06-10] MEDS: FLUCONAZOLE 100 MG/NS 50 ML IVPB SCH (09:55)
[2017-06-10] MEDS: ARFORMOTEROL TARTRATE 15 MCG/2 ML VIAL NEB SCH (09:58)
[2017-06-10] MEDS ORDERED: ALBUTEROL SO4 0.083% IH SOL 2.5 MG/3 ML VIAL.NEB. NEB PRN (10:22)
--- NOTE | 2017-06-10 10:29 | PN ---
Progress Note (short form) - Note Progress Note: PULMONARY WEAK/SOB EGD PERFORMED AVM'S/COFFEE GROUNDS/BLEEDING FROM MUCOSAL SPLITS /COLON CANCELLED POOR PREP VSS/AFEBRILE/96% ON 4L/M ANICTERIC DIMINISHED BREATH SOUNDS S1S2 IRREGULAR BS+ SOFT NO EDEMA LABS/MEDS/NOTES/CXR REVIEWED ANEMIA/GIB Lung Ca s/p LLL lobectomy COPD Atrial Fibrillation/ ac on hold AAA - abg/cxr/cbc/cmp - hold further prep for now - inhaled bronchodilators/o2/steroids - incentive spirometry - s/p Endovascular AAA repair - will follow R ONOFRE RAMIREZ Problem List - Problems (1) Abdominal aortic aneurysm (AAA) Code(s): I71.4 - ABDOMINAL AORTIC ANEURYSM, WITHOUT RUPTURE Qualifiers: Presence of rupture: without rupture Qualified Code(s): I71.4 - Abdominal aortic aneurysm, without rupture (2) Melena Code(s): K92.1 - MELENA (3) Atrial fibrillation Code(s): I48.91 - UNSPECIFIED ATRIAL FIBRILLATION Qualifiers: Atrial fibrillation type: persistent Qualified Code(s): I48.1 - Persistent atrial fibrillation (4) COPD (chronic obstructive pulmonary disease) Code(s): J44.9 - CHRONIC OBSTRUCTIVE PULMONARY DISEASE, UNSPECIFIED Qualifiers: Emphysema type: centrilobular (5) Chronic renal disease Code(s): N18.9 - CHRONIC KIDNEY DISEASE, UNSPECIFIED Qualifiers: Chronic kidney disease stage: stage 4 (severe) Qualified Code(s): N18.4 - Chronic kidney disease, stage 4 (severe) (6) Constipation Code(s): K59.00 - CONSTIPATION, UNSPECIFIED
[2017-06-10] MEDS ORDERED: ALBUTEROL SO4 0.083% IH SOL 2.5 MG/3 ML VIAL.NEB. NEB SCH (10:30)
[2017-06-10 11:00] LABS: ARTERIAL BLD GAS O2 SATURATION 92.5 % (90-98.9); ARTERIAL BLOOD GAS BASE EXCESS 5.3 meq/l (-2-2); ARTERIAL BLOOD GAS PO2 68.7 mmHg (70-100)
[2017-06-10] MEDS ORDERED: SODIUM CHLORIDE 1,000 ML IV SCH (11:15)
--- NOTE | 2017-06-10 11:17 | PN ---
Progress Note, Physician Chief Complaint: awake weak sob in moderate distress - Current Medication List Current Medications: Active Medications Acetaminophen (Tylenol -) 650 mg PO Q6H PRN PRN Reason: FEVER OR PAIN Last Admin: 06/07/17 21:06 Dose: 650 mg Acetaminophen (Ofirmev Injection -) 1,000 mg IVPB Q6H PRN PRN Reason: FEVER OR PAIN Last Admin: 06/03/17 05:02 Dose: 1,000 mg Albuterol Sulfate (Ventolin 0.083% Nebulizer Soln -) 1 amp NEB Q6H ANNA Last Admin: 06/10/17 11:04 Dose: Not Given Albuterol Sulfate (Ventolin 0.083% Nebulizer Soln -) 1 amp NEB Q1H PRN PRN Reason: SHORT OF BREATH/WHEEZING Diltiazem HCl (Cardizem Injection -) 30 mg IVPUSH Q6H PRN PRN Reason: TACHYCARDIA Last Admin: 06/02/17 19:20 Dose: 30 mg Diltiazem HCl (Cardizem Cd -) 180 mg PO DAILY ANNA Last Admin: 06/10/17 09:45 Dose: 180 mg Docusate Sodium (Colace -) 100 mg PO TID ANNA Last Admin: 06/08/17 14:44 Dose: Not Given Piperacillin Sod/Tazobactam (Sod 2.25 gm/ Dextrose) 50 mls @ 100 mls/hr IVPB Q8H-IV ANNA Last Admin: 06/10/17 09:51 Dose: 100 mls/hr Fluconazole (Diflucan 100 Mg/Ns Premixed Ivpb -) 50 mls @ 50 mls/hr IVPB DAILY ANNA Last Admin: 06/10/17 09:55 Dose: 50 mls/hr Sodium Chloride (Normal Saline -) 1,000 mls @ 83 mls/hr IV ASDIR ANNA Insulin Aspart (Novolog Vial Sliding Scale -) 1 vial SQ ACHS ANNA PRN Reason: Protocol Lorazepam (Ativan -) 0.5 mg PO TID PRN PRN Reason: ANXIETY Last Admin: 06/10/17 05:27 Dose: 0.5 mg Methylprednisolone Sodium Succinate (Solu-Medrol -) 40 mg IVPUSH Q8H-IV ANNA Ondansetron HCl (Zofran Injection) 4 mg IVPUSH Q8H PRN PRN Reason: NAUSEA AND/OR VOMITING Last Admin: 06/08/17 19:50 Dose: 4 mg Ranitidine HCl (Zantac -) 300 mg PO DAILY@1800 [facility] Last Admin: 06/09/17 17:14 Dose: 300 mg Tiotropium [place] (Spiriva -) 1 puff IH DAILY [facility] Last Admin: 06/10/17 09:46 Dose: 1 pfu - Objective Vital Signs: Vital Signs Temperature 97.1 F L 06/10/17 08:59 Pulse Rate 76 06/10/17 09:58 Respiratory Rate 20 06/10/17 08:59 Blood Pressure 142/84 06/10/17 08:59 O2 Sat by Pulse Oximetry (%) 96 06/10/17 09:58 Constitutional: Yes: Mild Distress, Moderate Distress Eyes: Yes: WNL HENT: Yes: WNL Neck: Yes: WNL Cardiovascular: Yes: Pulse Irregular Respiratory: Yes: On Nasal O2, SOB Gastrointestinal: Yes: WNL Genitourinary: Yes: WNL Musculoskeletal: Yes: Muscle Weakness Edema: No Peripheral Pulses WNL: Yes Integumentary: Yes: WNL, Other Wound/Incision: Yes: Dressing Dry and Intact Neurological: Yes: Other ...Motor Strength: LLE, RLE Psychiatric: Yes: Agitated Labs: CBC, BMP 06/08/17 05:05 06/10/17 05:05 INR, PTT INR 1.08 (0.82-1.09) 05/25/17 14:07 Problem List - Problems (1) Melena Code(s): K92.1 - MELENA (2) Stool guaiac positive Code(s): R19.5 - OTHER FECAL ABNORMALITIES (3) Abdominal aneurysm Code(s): I71.4 - ABDOMINAL AORTIC ANEURYSM, WITHOUT RUPTURE (4) Atrial fibrillation Code(s): I48.91 - UNSPECIFIED ATRIAL FIBRILLATION Qualifiers: Atrial fibrillation type: persistent Qualified Code(s): I48.1 - Persistent atrial fibrillation (5) COPD (chronic obstructive pulmonary disease) Code(s): J44.9 - CHRONIC OBSTRUCTIVE PULMONARY DISEASE, UNSPECIFIED Qualifiers: Emphysema type: centrilobular (6) Chronic renal disease Code(s): N18.9 - CHRONIC KIDNEY DISEASE, UNSPECIFIED Qualifiers: Chronic kidney disease stage: stage 4 (severe) Qualified Code(s): N18.4 - Chronic kidney disease, stage 4 (severe) (7) Constipation Code(s): K59.00 - CONSTIPATION, UNSPECIFIED (8) Lung malignancy Code(s): C34.90 - MALIGNANT NEOPLASM OF UNSP PART OF UNSP BRONCHUS OR LUNG Qualifiers: Laterality: left Assessment/Plan poor prep for colonoscopy will try again start ivf labs ordered solumedrol iv ssi hyperglycemia check cbc pt oob to chair incentive spirometry
[2017-06-10] MEDS: INSULIN SLIDING SCALE (NOVOLOG) 1 VIAL SQ SCH ×4 (11:21→22:17)
[2017-06-10] MEDS: ALBUTEROL SO4 0.083% IH SOL 2.5 MG/3 ML VIAL.NEB. NEB SCH ×3 (12:13→23:29)
--- NOTE | 2017-06-10 15:57 | PN ---
Progress Note, Physician History of Present Illness: Pt seen and examined at bedside. She complains of weakness and fatigue. - Current Medication List Current Medications: Active Medications Acetaminophen (Tylenol -) 650 mg PO Q6H PRN PRN Reason: FEVER OR PAIN Last Admin: 06/07/17 21:06 Dose: 650 mg Acetaminophen (Ofirmev Injection -) 1,000 mg IVPB Q6H PRN PRN Reason: FEVER OR PAIN Last Admin: 06/03/17 05:02 Dose: 1,000 mg Albuterol Sulfate (Ventolin 0.083% Nebulizer Soln -) 1 amp NEB Q1H PRN PRN Reason: SHORT OF BREATH/WHEEZING Albuterol Sulfate (Ventolin 0.083% Nebulizer Soln -) 1 amp NEB QIDR ANNA Last Admin: 06/10/17 12:13 Dose: Not Given Diltiazem HCl (Cardizem Injection -) 30 mg IVPUSH Q6H PRN PRN Reason: TACHYCARDIA Last Admin: 06/02/17 19:20 Dose: 30 mg Diltiazem HCl (Cardizem Cd -) 180 mg PO DAILY ANNA Last Admin: 06/10/17 09:45 Dose: 180 mg Docusate Sodium (Colace -) 100 mg PO TID ANNA Last Admin: 06/08/17 14:44 Dose: Not Given Piperacillin Sod/Tazobactam (Sod 2.25 gm/ Dextrose) 50 mls @ 100 mls/hr IVPB Q8H-IV ANNA Last Admin: 06/10/17 09:51 Dose: 100 mls/hr Fluconazole (Diflucan 100 Mg/Ns Premixed Ivpb -) 50 mls @ 50 mls/hr IVPB DAILY ANNA Last Admin: 06/10/17 09:55 Dose: 50 mls/hr Sodium Chloride (Normal Saline -) 1,000 mls @ 83 mls/hr IV ASDIR ANNA Last Admin: 06/10/17 11:24 Dose: 83 mls/hr Insulin Aspart (Novolog Vial Sliding Scale -) 1 vial SQ ACHS ANNA PRN Reason: Protocol Last Admin: 06/10/17 11:57 Dose: 10 units Lorazepam (Ativan -) 0.5 mg PO TID PRN PRN Reason: ANXIETY Last Admin: 06/10/17 13:50 Dose: 0.5 mg Methylprednisolone Sodium Succinate (Solu-Medrol -) 40 mg IVPUSH Q8H-IV ANNA Ondansetron HCl (Zofran Injection) 4 mg IVPUSH Q8H PRN PRN Reason: NAUSEA AND/OR VOMITING Last Admin: 06/08/17 19:50 Dose: 4 mg Ranitidine HCl (Zantac -) 300 mg PO DAILY@1800 [facility] Last Admin: 06/09/17 17:14 Dose: 300 mg Tiotropium [place] (Spiriva -) 1 puff IH DAILY [facility] Last Admin: 06/10/17 09:46 Dose: 1 pfu - Objective Vital Signs: Vital Signs Temperature 97.6 F 06/10/17 15:04 Pulse Rate 82 06/10/17 15:04 Respiratory Rate 20 06/10/17 15:04 Blood Pressure 158/63 06/10/17 15:04 O2 Sat by Pulse Oximetry (%) 96 06/10/17 09:58 Constitutional: Yes: Calm Eyes: Yes: Conjunctiva Clear Cardiovascular: Yes: S1, S2 Respiratory: Yes: On Nasal O2, Wheezes Gastrointestinal: Yes: Soft Genitourinary: Yes: WNL Musculoskeletal: Yes: WNL Edema: No Neurological: Yes: Oriented Psychiatric: Yes: Oriented Labs: CBC, BMP 06/08/17 05:05 06/10/17 05:05 INR, PTT INR 1.08 (0.82-1.09) 05/25/17 14:07 - ....Imaging Chest X-ray: Report Reviewed Problem List - Problems (1) Abdominal aortic aneurysm (AAA) Code(s): I71.4 - ABDOMINAL AORTIC ANEURYSM, WITHOUT RUPTURE Qualifiers: Presence of rupture: without rupture Qualified Code(s): I71.4 - Abdominal aortic aneurysm, without rupture (2) Stool guaiac positive Code(s): R19.5 - OTHER FECAL ABNORMALITIES (3) Atrial fibrillation Code(s): I48.91 - UNSPECIFIED ATRIAL FIBRILLATION Qualifiers: Atrial fibrillation type: persistent Qualified Code(s): I48.1 - Persistent atrial fibrillation (4) COPD (chronic obstructive pulmonary disease) Code(s): J44.9 - CHRONIC OBSTRUCTIVE PULMONARY DISEASE, UNSPECIFIED Qualifiers: Emphysema type: centrilobular (5) Chronic renal disease Code(s): N18.9 - CHRONIC KIDNEY DISEASE, UNSPECIFIED Qualifiers: Chronic kidney disease stage: stage 4 (severe) Qualified Code(s): N18.4 - Chronic kidney disease, stage 4 (severe) (6) Pneumothorax Code(s): J93.9 - PNEUMOTHORAX, UNSPECIFIED Qualifiers: Pneumothorax type: postprocedural Qualified Code(s): J95.811 - Postprocedural pneumothorax (7) Tobacco use Code(s): Z72.0 - TOBACCO USE Assessment/Plan Current Medications Generic Name Dose Route Start Last Admin Trade Name Freq PRN Reason Stop Dose Admin Acetaminophen 650 mg 06/02/17 19:24 06/07/17 21:06 Tylenol - PO 650 mg Q6H PRN Administration FEVER OR PAIN Acetaminophen 1,000 mg 06/02/17 22:51 06/03/17 05:02 Ofirmev Injection - IVPB 1,000 mg Q6H PRN Administration FEVER OR PAIN Albuterol Sulfate 1 amp 06/10/17 10:22 Ventolin 0.083% Nebulizer Soln - NEB Q1H PRN SHORT OF BREATH/WHEEZING Albuterol Sulfate 1 amp 06/10/17 11:56 06/10/17 12:13 Ventolin 0.083% Nebulizer Soln - NEB Not Given QIDR ANNA Diltiazem HCl 30 mg 06/02/17 19:16 06/02/17 19:20 Cardizem Injection - IVPUSH 30 mg Q6H PRN Administration TACHYCARDIA Diltiazem HCl 180 mg 06/03/17 10:00 06/10/17 09:45 Cardizem Cd - PO 180 mg DAILY ANNA Administration Docusate Sodium 100 mg 06/02/17 22:00 06/08/17 14:44 Colace - PO Not Given TID ANNA Piperacillin Sod/Tazobactam 50 mls @ 100 mls/hr 06/05/17 12:15 06/10/17 09:51 Sod 2.25 gm/ Dextrose IVPB 100 mls/hr Q8H-IV ANNA Administration Fluconazole 50 mls @ 50 mls/hr 06/09/17 19:15 06/10/17 09:55 Diflucan 100 Mg/Ns Premixed Ivpb - IVPB 50 mls/hr DAILY ANNA Administration Sodium Chloride 1,000 mls @ 83 mls/hr 06/10/17 11:15 06/10/17 11:24 Normal Saline - IV 83 mls/hr ASDIR ANNA Administration Insulin Aspart 1 vial 06/10/17 16:30 06/10/17 11:57 Novolog Vial Sliding Scale - SQ 10 units ACHS ANNA Administration Protocol Lorazepam 0.5 mg 06/02/17 19:24 06/10/17 13:50 Ativan - PO 0.5 mg TID PRN Administration ANXIETY Methylprednisolone Sodium Succinate 40 mg 06/10/17 18:00 Solu-Medrol - IVPUSH Q8H-IV ANNA Ondansetron HCl 4 mg 06/08/17 19:34 06/08/17 19:50 Zofran Injection IVPUSH 4 mg Q8H PRN Administration NAUSEA AND/OR VOMITING Ranitidine HCl 300 mg 06/03/17 18:30 06/09/17 17:14 Zantac - PO 300 mg DAILY@1800 ANNA Administration Tiotropium [place] 1 puff 06/03/17 10:00 06/10/17 09:46 Spiriva - IH 1 pfu DAILY ANNA Administration 1. CKD with acute component 2. AAA 3. lung cancer 4. HTN 5. a-fib 6. chol 7. hx hydropneumothorax 8. GI bleed Plan - pt complains of weakness and fatigue - agree with gentle hydration - repeat labs in am - GI input appreciated - cxr reviewed - elevated creatinine likely from hypotension - monitor BP - will follow Dr Shearer
[2017-06-10] MEDS: methylPREDNISolone NA SUCC 40 MG/1 ML VIAL IVPUSH SCH (17:30)
[2017-06-10] MEDS: RANITIDINE HCL 150 MG TABLET (FP) PO SCH (17:30)
[2017-06-10] MEDS: SODIUM CHLORIDE 1,000 ML IV SCH (17:40)
--- NOTE | 2017-06-10 20:41 | HOSP ---
Subjective - Review of Symptoms Subjective: Paged by RN about patient being short of breath. Was reported that she has been short of breath since yesterday due to Lung Ca and acute blood loss, however pt had decrease in oxygen saturation to 85% on 3LNC. Nursing staff reported the called Dr. Truong and he ordered VM 50% and to page hospitalist service. ABG at noon already was performed and resulted with pO2 of 68, however pt was maintained on her 3LNC. IVF was initiated earlier today. Pt currently complaining of SOB and some non- radiating substernal chest tightness related to inspiration. VS: SpO2 89% on VM 50%, Pulse 92 gen: mild distress laying in bed awake alert oriented lungs: prolonged expiratory phase. poor air entry in bilateral base of lungs, tachypneic cardiac: tachycardic, regular rhythm no murmur appreciated ext: no edema, 2+ dp pulses a/p most likely compounding factors of acute blood loss even with cbc of 9.9, copd , and recent lung resection --Start bipap 10 ipap, 5 epap --hold IVF Physical Examination Vital Signs: Vital Signs Temperature 98.7 F 06/10/17 17:00 Pulse Rate 80 06/10/17 17:00 Respiratory Rate 20 06/10/17 17:00 Blood Pressure 150/77 06/10/17 17:00 O2 Sat by Pulse Oximetry (%) 96 06/10/17 09:58 Labs: CBC, BMP 06/08/17 05:05 06/10/17 05:05
[2017-06-10] MEDS: DOCUSATE SODIUM 100 MG CAPSULE (FP) PO SCH (22:17)
--- NOTE | 2017-06-10 22:40 | PN ---
Progress Note (short form) - Note Progress Note: Patient seen and examined c/o shortness of breath Last Vital Signs Temp Pulse Resp BP Pulse Ox 97.2 F L 64 20 145/66 95 06/10/17 20:44 06/10/17 20:44 06/10/17 20:44 06/10/17 20:44 06/10/17 21:00 Cor: RSR, No murmurs, No gallops Lungs: decreased lt. base/rt. base crackles Abd: Soft, Normal bowel sounds, No organomegaly Ext:No significant edema Skin: No rashes, Integument intact Abnormal Lab Results 06/10/17 06/10/17 05:05 10:50 ABG pCO2 at Pt Temp 51.0 H ABG pO2 at Pt Temp 68.7 L D ABG HCO3 30.6 H ABG O2 Content 13.4 L ABG Base Excess 5.3 H BUN 98 H D Creatinine 3.4 H Random Glucose 354 H* D Calcium 7.8 L Active Medications Generic Name Dose Route Start Last Admin Trade Name Freq PRN Reason Stop Dose Admin Acetaminophen 650 mg 06/02/17 19:24 06/10/17 23:15 Tylenol - PO 650 mg Q6H PRN Administration FEVER OR PAIN Acetaminophen 1,000 mg 06/02/17 22:51 06/03/17 05:02 Ofirmev Injection - IVPB 1,000 mg Q6H PRN Administration FEVER OR PAIN Albuterol Sulfate 1 amp 06/10/17 10:22 06/10/17 20:04 Ventolin 0.083% Nebulizer Soln - NEB 1 amp Q1H PRN Administration SHORT OF BREATH/WHEEZING Albuterol Sulfate 1 amp 06/10/17 11:56 06/10/17 23:29 Ventolin 0.083% Nebulizer Soln - NEB 1 amp QIDR ANNA Administration Diltiazem HCl 30 mg 06/02/17 19:16 06/02/17 19:20 Cardizem Injection - IVPUSH 30 mg Q6H PRN Administration TACHYCARDIA Diltiazem HCl 180 mg 06/03/17 10:00 06/10/17 09:45 Cardizem Cd - PO 180 mg DAILY ANNA Administration Docusate Sodium 100 mg 06/02/17 22:00 06/10/17 22:17 Colace - PO Not Given TID ANNA Piperacillin Sod/Tazobactam 50 mls @ 100 mls/hr 06/05/17 12:15 06/10/17 17:30 Sod 2.25 gm/ Dextrose IVPB 100 mls/hr Q8H-IV ANNA Administration Fluconazole 50 mls @ 50 mls/hr 06/09/17 19:15 06/10/17 09:55 Diflucan 100 Mg/Ns Premixed Ivpb - IVPB 50 mls/hr DAILY ANNA Administration Sodium Chloride 1,000 mls @ 75 mls/hr 06/10/17 15:57 06/10/17 17:40 Normal Saline - IV 75 mls/hr ASDIR ANNA Administration Insulin Aspart 1 vial 06/10/17 16:30 06/10/17 22:17 Novolog Vial Sliding Scale - SQ Not Given ACHS ANNA Protocol Lorazepam 0.5 mg 06/02/17 19:24 06/10/17 13:50 Ativan - PO 0.5 mg TID PRN Administration ANXIETY Methylprednisolone Sodium Succinate 40 mg 06/10/17 18:00 06/10/17 17:30 Solu-Medrol - IVPUSH 40 mg Q8H-IV ANNA Administration Ondansetron HCl 4 mg 06/08/17 19:34 06/08/17 19:50 Zofran Injection IVPUSH 4 mg Q8H PRN Administration NAUSEA AND/OR VOMITING Ranitidine HCl 300 mg 06/03/17 18:30 06/10/17 17:30 Zantac - PO 300 mg DAILY@1800 ANNA Administration Tiotropium [place] 1 puff 06/03/17 10:00 06/10/17 09:46 Spiriva - IH 1 pfu DAILY ANNA Administration Tramadol HCl 50 mg 06/10/17 20:58 Ultram - PO Q8H PRN PAIN a/p Stage IB. ([id number]) Squamous Lung cancer s/p resection. ( left sided VATS procedure and OSVALDO lobectomy.) AAA Afib ---eliquis on hold esrd Stool occult positive /blood loss anemia--hgb 9.5 egd--mucosal bleeds/avms ? switch to coumadin shortness of breath --lt. pleural effusion getting nebs/cxr/d/c iv fluids hgb 9.5
[2017-06-10] MEDS: ACETAMINOPHEN 325 MG TABLET (FP) PO PRN (23:15)
[2017-06-11] MEDS ORDERED: PT OWN MED DRAWER 7, Y5N ONE ×4 (01:26→21:19)
[2017-06-11] MEDS: PIPERACILLIN/TAZOB 2.25 GM 2.25 GM in DEXTROSE 5%-WATER - 50 ML IVPB SCH ×2 (01:28→10:52)
[2017-06-11] MEDS: methylPREDNISolone NA SUCC 40 MG/1 ML VIAL IVPUSH SCH ×3 (01:28→17:20)
[2017-06-11] MEDS: traMADol HCL 50 MG TABLET PO PRN (04:07)
[2017-06-11] MEDS: LORazepam 0.5 MG TABLET PO PRN (04:23)
[2017-06-11] MEDS: DOCUSATE SODIUM 100 MG CAPSULE (FP) PO SCH ×3 (06:08→21:24)
[2017-06-11] MEDS: INSULIN SLIDING SCALE (NOVOLOG) 1 VIAL SQ SCH ×4 (06:10→21:32)
[2017-06-11] MEDS: ALBUTEROL SO4 0.083% IH SOL 2.5 MG/3 ML VIAL.NEB. NEB SCH ×3 (06:55→18:21)
[2017-06-11] MEDS ORDERED: NITROGLYCERIN 2% OINTMENT - 1GM PACKET TD ONE (07:52)
[2017-06-11 07:56] LABS: HEMATOCRIT 28.3 % (32.4-45.2); HEMOGLOBIN 9.2 GM/dL (10.7-15.3); MCH 29.5 pg (25.7-33.7); MCHC 32.3 g/dl (32.0-36.0); MEAN CELL VOLUME 91.3 fl (80-96); MEAN PLT VOLUME 7.5 fl (7.5-11.1); PLATELET COUNT 265 K/MM3 (134-434); RDW 15.4 % (11.6-15.6)
[2017-06-11 08:10] LABS: WHITE BLOOD COUNT 33.5 K/mm3 (4.0-10.0)
[2017-06-11 08:23] LABS: ALBUMIN 2.5 g/dl (3.4-5.0); ANION GAP 7 (8-16); BLOOD UREA NITROGEN 100 mg/dL (7-18); CALCIUM 7.7 mg/dL (8.5-10.1); CHLORIDE 95 mmol/L (98-107); CO2 31 mmol/L (21-32); GLUCOSE,RANDOM 231 mg/dL (74-106); SGPT/ALT 51 U/L (12-78); SODIUM 133 mmol/L (136-145)
[2017-06-11 08:26] LABS: ALK PHOS 61 U/L (45-117); BILIRUBIN,TOTAL 0.7 mg/dL (0.2-1.0); CREATININE 3.2 mg/dL (0.55-1.02); SGOT/AST 21 U/L (15-37); TOT PROT 5.7 g/dl (6.4-8.2)
[2017-06-11] MEDS: NITROGLYCERIN 2% OINTMENT - 1GM PACKET TD SCH ×4 (08:30→21:32)
--- NOTE | 2017-06-11 09:14 | EKG ---
Test Reason : Blood Pressure : / mmHG Vent. Rate : 065 BPM Atrial Rate : 070 BPM P-R Int : 000 ms QRS Dur : 142 ms QT Int : 438 ms P-R-T Axes : 000 -23 053 degrees QTc Int : 455 ms ATRIAL FIBRILLATION NON-SPECIFIC INTRA-VENTRICULAR CONDUCTION BLOCK INFERIOR INFARCT , AGE UNDETERMINED NONSPECIFIC ST ABNORMALITY ABNORMAL ECG Confirmed by TINO HICKS MD ([id number]) on 06/11/2017 9:14:30 AM Referred By: Confirmed By:TINO HICKS MD
[2017-06-11] MEDS: FLUCONAZOLE 100 MG/NS 50 ML IVPB SCH (10:52)
[2017-06-11] MEDS: TIOTROPIUM BROMIDE 18 MCG/INH (DEVICE W/ 5 CAPSULES) IH SCH (10:53)
[2017-06-11 11:30] LABS: ANISOCYTOSIS 3+; MACROCYTOSIS 0; PLATELET ESTIMATE NORMAL
[2017-06-11 11:32] LABS: ARTERIAL BLD GAS O2 SATURATION 99.4 % (90-98.9); ARTERIAL BLOOD GAS PCO2 44.4 mmHg (35-45); ARTERIAL BLOOD GAS pH 7.43 (7.35-7.45)
[2017-06-11 11:35] LABS: ALLENS TEST POSITIVE
--- NOTE | 2017-06-11 11:41 | PN ---
Progress Note (short form) - Note Progress Note: \alert on bipap Vital Signs Period Temp Pulse Resp BP Sys/Sellers Pulse Ox Last 24 Hr 97.2 F-98.7 F 64-82 20-20 119-158/63-77 95-100 cor-rrr lungs decreased bs left base abd soft,nt ext no edema cxray- incresed left basilar atelectasis/consolidation with shift of mediastinum CBC, BMP 06/11/17 05:37 06/11/17 05:37 a/p given worsening cxray and hypoxia will switch to meropenem for HAP/aspiration , vanco one dose also on steroids but sudden elevation in wbc with worsening film is concerning s/p endoscopy reculture for abg, ?ICU transfer d/w Dr Welch padmini esophagits- on diflucan s/p EVAR12/6 s/p LLL lobectomy 03/06/2017 copd ckd Problem List - Problems (1) COPD exacerbation Code(s): J44.1 - CHRONIC OBSTRUCTIVE PULMONARY DISEASE W (ACUTE) EXACERBATION (2) History of endovascular stent graft for abdominal aortic aneurysm (AAA) Code(s): Z95.828 - PRESENCE OF OTHER VASCULAR IMPLANTS AND GRAFTS (3) S/P lobectomy of lung Code(s): Z90.2 - ACQUIRED ABSENCE OF LUNG [PART OF]
[2017-06-11] MEDS ORDERED: MEROPENEM 500 MG VIAL (RESTRICTED TO ID) IVPB SCH (12:00)
--- NOTE | 2017-06-11 12:13 | PN ---
Progress Note, Physician Chief Complaint: asleep on bipap events noted - Current Medication List Current Medications: Active Medications Acetaminophen (Tylenol -) 650 mg PO Q6H PRN PRN Reason: FEVER OR PAIN Last Admin: 06/10/17 23:15 Dose: 650 mg Acetaminophen (Ofirmev Injection -) 1,000 mg IVPB Q6H PRN PRN Reason: FEVER OR PAIN Last Admin: 06/03/17 05:02 Dose: 1,000 mg Albuterol Sulfate (Ventolin 0.083% Nebulizer Soln -) 1 amp NEB Q1H PRN PRN Reason: SHORT OF BREATH/WHEEZING Last Admin: 06/10/17 20:04 Dose: 1 amp Albuterol Sulfate (Ventolin 0.083% Nebulizer Soln -) 1 amp NEB QIDR ANNA Last Admin: 06/11/17 11:44 Dose: 1 amp Diltiazem HCl (Cardizem Injection -) 30 mg IVPUSH Q6H PRN PRN Reason: TACHYCARDIA Last Admin: 06/02/17 19:20 Dose: 30 mg Diltiazem HCl (Cardizem Cd -) 180 mg PO DAILY [facility] Last Admin: 06/11/17 11:10 Dose: Not Given Docusate Sodium (Colace -) 100 mg PO TID [facility] Last Admin: 06/11/17 06:08 Dose: 100 mg Fluconazole (Diflucan 100 Mg/Ns Premixed Ivpb -) 50 mls @ 50 mls/hr IVPB DAILY [facility] Last Admin: 06/11/17 10:52 Dose: 50 mls/hr Sodium Chloride (Normal Saline -) 1,000 mls @ 75 mls/hr IV ASDIR [facility] Last Admin: 06/10/17 17:40 Dose: 75 mls/hr Vancomycin HCl 1,000 mg/ (Dextrose) 250 mls @ 166.667 mls/hr IVPB ONCE ONE PRN Reason: Protocol Stop: 06/11/17 13:59 Meropenem (Merrem (Restricted To Id) -) 500 mg in 10 mls @ 120 mls/hr IVPUSH BID [facility] Insulin Aspart (Novolog Vial Sliding Scale -) 1 vial SQ ACHS ANNA PRN Reason: Protocol Last Admin: 06/11/17 11:09 Dose: Not Given Lorazepam (Ativan -) 0.5 mg PO TID PRN PRN Reason: ANXIETY Last Admin: 06/11/17 04:23 Dose: 0.5 mg Methylprednisolone Sodium Succinate (Solu-Medrol -) 40 mg IVPUSH Q8H-IV ANNA Last Admin: 06/11/17 10:43 Dose: 40 mg Nitroglycerin (Nitro-Bid 2% Paste -) 1 inch TD QID ANNA Last Admin: 06/11/17 08:30 Dose: 1 inch Ondansetron HCl (Zofran Injection) 4 mg IVPUSH Q8H PRN PRN Reason: NAUSEA AND/OR VOMITING Last Admin: 06/08/17 19:50 Dose: 4 mg Ranitidine HCl (Zantac -) 300 mg PO DAILY@1800 [facility] Last Admin: 06/10/17 17:30 Dose: 300 mg Tiotropium [place] (Spiriva -) 1 puff IH DAILY [facility] Last Admin: 06/11/17 10:53 Dose: Not Given Tramadol HCl (Ultram -) 50 mg PO Q8H PRN PRN Reason: PAIN Last Admin: 06/11/17 04:07 Dose: 50 mg - Objective Vital Signs: Vital Signs Temperature 98.2 F 06/11/17 05:00 Pulse Rate 67 06/11/17 09:43 Respiratory Rate 20 06/11/17 05:00 Blood Pressure 119/70 06/11/17 05:00 O2 Sat by Pulse Oximetry (%) 100 06/11/17 09:44 Constitutional: Yes: Moderate Distress Eyes: Yes: WNL HENT: Yes: WNL Neck: Yes: WNL Cardiovascular: Yes: WNL Respiratory: Yes: On BiPap, Poor Air Entry Gastrointestinal: Yes: WNL Musculoskeletal: Yes: Muscle Weakness Extremities: Yes: WNL Edema: No Peripheral Pulses WNL: Yes Integumentary: Yes: WNL Wound/Incision: Yes: Clean/Dry Neurological: Yes: Other ...Motor Strength: LLE, RLE Psychiatric: Yes: Other Labs: CBC, BMP 06/11/17 05:37 06/11/17 05:37 INR, PTT INR 1.08 (0.82-1.09) 05/25/17 14:07 Problem List - Problems (1) Melena Code(s): K92.1 - MELENA (2) Stool guaiac positive Code(s): R19.5 - OTHER FECAL ABNORMALITIES (3) Abdominal aneurysm Code(s): I71.4 - ABDOMINAL AORTIC ANEURYSM, WITHOUT RUPTURE (4) Atrial fibrillation Code(s): I48.91 - UNSPECIFIED ATRIAL FIBRILLATION Qualifiers: Atrial fibrillation type: persistent Qualified Code(s): I48.1 - Persistent atrial fibrillation (5) COPD (chronic obstructive pulmonary disease) Code(s): J44.9 - CHRONIC OBSTRUCTIVE PULMONARY DISEASE, UNSPECIFIED Qualifiers: Emphysema type: centrilobular (6) Chronic renal disease Code(s): N18.9 - CHRONIC KIDNEY DISEASE, UNSPECIFIED Qualifiers: Chronic kidney disease stage: stage 4 (severe) Qualified Code(s): N18.4 - Chronic kidney disease, stage 4 (severe) (7) Constipation Code(s): K59.00 - CONSTIPATION, UNSPECIFIED (8) Lung malignancy Code(s): C34.90 - MALIGNANT NEOPLASM OF UNSP PART OF UNSP BRONCHUS OR LUNG Qualifiers: Laterality: left Assessment/Plan leukocytosis id f/u agree with icu transfer will discuss with dr naty hernandez for now resp distress with some psychological stressers iv abx iv steroids
--- NOTE | 2017-06-11 12:16 | PN ---
Progress Note (short form) - Note Progress Note: PULMONARY WEAK/SOB/NOW ON BIPAP WITH 50%FIO2 7.43/44/146/99% EGD PERFORMED AVM'S/COFFEE GROUNDS/BLEEDING FROM MUCOSAL SPLITS /COLON CANCELLED POOR PREP REMAINS AFEBRILE ANICTERIC DIMINISHED BREATH SOUNDS S1S2 IRREGULAR BS+ SOFT NO EDEMA LABS/MEDS/NOTES/WBC 33K /CXR : INCREASING LEFT SIDED OPACIFICATION LIKELY REPRESENTING ATELECTASIS S/P EGD LIKELY ASPIRATION POST EGD WITH FURTHER LEFT ATELECTASIS ANEMIA/GIB Lung Ca s/p LLL lobectomy COPD/ Atrial Fibrillation/ ac on hold AAA s/p repair - antibiotics adjusted as per ID - inhaled bronchodilators/o2/steroids/chest PT - incentive spirometry/when off bipap - s/p Endovascular AAA repair - will follow/may need ICU if clinical picture changes Jayla ADHIKARI MD Problem List - Problems (1) Abdominal aortic aneurysm (AAA) Code(s): I71.4 - ABDOMINAL AORTIC ANEURYSM, WITHOUT RUPTURE Qualifiers: Presence of rupture: without rupture Qualified Code(s): I71.4 - Abdominal aortic aneurysm, without rupture (2) Melena Code(s): K92.1 - MELENA (3) Atrial fibrillation Code(s): I48.91 - UNSPECIFIED ATRIAL FIBRILLATION Qualifiers: Atrial fibrillation type: persistent Qualified Code(s): I48.1 - Persistent atrial fibrillation (4) COPD (chronic obstructive pulmonary disease) Code(s): J44.9 - CHRONIC OBSTRUCTIVE PULMONARY DISEASE, UNSPECIFIED Qualifiers: Emphysema type: centrilobular (5) Chronic renal disease Code(s): N18.9 - CHRONIC KIDNEY DISEASE, UNSPECIFIED Qualifiers: Chronic kidney disease stage: stage 4 (severe) Qualified Code(s): N18.4 - Chronic kidney disease, stage 4 (severe) (6) Constipation Code(s): K59.00 - CONSTIPATION, UNSPECIFIED
[2017-06-11] MEDS ORDERED: VANCOMYCIN 1,000 MG in DEXTROSE 5%-WATER - 250 ML IVPB ONE (12:30)
--- NOTE | 2017-06-11 14:46 | PN ---
Progress Note, Physician History of Present Illness: Pt seen and examined at bedside. She complains of weakness and shortness of breath. - Current Medication List Current Medications: Active Medications Acetaminophen (Tylenol -) 650 mg PO Q6H PRN PRN Reason: FEVER OR PAIN Last Admin: 06/10/17 23:15 Dose: 650 mg Acetaminophen (Ofirmev Injection -) 1,000 mg IVPB Q6H PRN PRN Reason: FEVER OR PAIN Last Admin: 06/03/17 05:02 Dose: 1,000 mg Albuterol Sulfate (Ventolin 0.083% Nebulizer Soln -) 1 amp NEB Q1H PRN PRN Reason: SHORT OF BREATH/WHEEZING Last Admin: 06/10/17 20:04 Dose: 1 amp Albuterol Sulfate (Ventolin 0.083% Nebulizer Soln -) 1 amp NEB QIDR ANNA Last Admin: 06/11/17 11:44 Dose: 1 amp Diltiazem HCl (Cardizem Injection -) 30 mg IVPUSH Q6H PRN PRN Reason: TACHYCARDIA Last Admin: 06/02/17 19:20 Dose: 30 mg Diltiazem HCl (Cardizem Cd -) 180 mg PO DAILY [facility] Last Admin: 06/11/17 11:10 Dose: Not Given Docusate Sodium (Colace -) 100 mg PO TID ANNA Last Admin: 06/11/17 06:08 Dose: 100 mg Fluconazole (Diflucan 100 Mg/Ns Premixed Ivpb -) 50 mls @ 50 mls/hr IVPB DAILY [facility] Last Admin: 06/11/17 10:52 Dose: 50 mls/hr Sodium Chloride (Normal Saline -) 1,000 mls @ 75 mls/hr IV ASDIR [facility] Last Admin: 06/10/17 17:40 Dose: 75 mls/hr Meropenem (Merrem (Restricted To Id) -) 500 mg in 10 mls @ 120 mls/hr IVPUSH BID ANNA Insulin Aspart (Novolog Vial Sliding Scale -) 1 vial SQ ACHS ANNA PRN Reason: Protocol Last Admin: 06/11/17 11:09 Dose: Not Given Lorazepam (Ativan -) 0.5 mg PO TID PRN PRN Reason: ANXIETY Last Admin: 06/11/17 04:23 Dose: 0.5 mg Methylprednisolone Sodium Succinate (Solu-Medrol -) 40 mg IVPUSH Q8H-IV [facility] Last Admin: 06/11/17 10:43 Dose: 40 mg Nitroglycerin (Nitro-Bid 2% Paste -) 1 inch TD QID [facility] Last Admin: 06/11/17 08:30 Dose: 1 inch Ondansetron HCl (Zofran Injection) 4 mg IVPUSH Q8H PRN PRN Reason: NAUSEA AND/OR VOMITING Last Admin: 06/08/17 19:50 Dose: 4 mg Ranitidine HCl (Zantac -) 300 mg PO DAILY@1800 [facility] Last Admin: 06/10/17 17:30 Dose: 300 mg Tiotropium [place] (Spiriva -) 1 puff IH DAILY [facility] Last Admin: 06/11/17 10:53 Dose: Not Given Tramadol HCl (Ultram -) 50 mg PO Q8H PRN PRN Reason: PAIN Last Admin: 06/11/17 04:07 Dose: 50 mg - Objective Vital Signs: Vital Signs Temperature 98.2 F 06/11/17 05:00 Pulse Rate 67 06/11/17 09:43 Respiratory Rate 20 06/11/17 05:00 Blood Pressure 119/70 06/11/17 05:00 O2 Sat by Pulse Oximetry (%) 100 06/11/17 09:44 Constitutional: Yes: Calm Eyes: Yes: Conjunctiva Clear HENT: Yes: Atraumatic Cardiovascular: Yes: S1, S2 Respiratory: Yes: On BiPap Gastrointestinal: Yes: Soft Genitourinary: Yes: Incontinence Musculoskeletal: Yes: Muscle Weakness Edema: No Neurological: Yes: Oriented Psychiatric: Yes: Oriented Labs: CBC, BMP 06/11/17 05:37 06/11/17 05:37 INR, PTT INR 1.08 (0.82-1.09) 05/25/17 14:07 - ....Imaging Chest X-ray: Report Reviewed Problem List - Problems (1) Abdominal aortic aneurysm (AAA) Code(s): I71.4 - ABDOMINAL AORTIC ANEURYSM, WITHOUT RUPTURE Qualifiers: Presence of rupture: without rupture Qualified Code(s): I71.4 - Abdominal aortic aneurysm, without rupture (2) Stool guaiac positive Code(s): R19.5 - OTHER FECAL ABNORMALITIES (3) Atrial fibrillation Code(s): I48.91 - UNSPECIFIED ATRIAL FIBRILLATION Qualifiers: Atrial fibrillation type: persistent Qualified Code(s): I48.1 - Persistent atrial fibrillation (4) COPD (chronic obstructive pulmonary disease) Code(s): J44.9 - CHRONIC OBSTRUCTIVE PULMONARY DISEASE, UNSPECIFIED Qualifiers: Emphysema type: centrilobular (5) Chronic renal disease Code(s): N18.9 - CHRONIC KIDNEY DISEASE, UNSPECIFIED Qualifiers: Chronic kidney disease stage: stage 4 (severe) Qualified Code(s): N18.4 - Chronic kidney disease, stage 4 (severe) (6) Pneumothorax Code(s): J93.9 - PNEUMOTHORAX, UNSPECIFIED Qualifiers: Pneumothorax type: postprocedural Qualified Code(s): J95.811 - Postprocedural pneumothorax (7) Tobacco use Code(s): Z72.0 - TOBACCO USE Assessment/Plan Current Medications Generic Name Dose Route Start Last Admin Trade Name Freq PRN Reason Stop Dose Admin Acetaminophen 650 mg 06/02/17 19:24 06/10/17 23:15 Tylenol - PO 650 mg Q6H PRN Administration FEVER OR PAIN Acetaminophen 1,000 mg 06/02/17 22:51 06/03/17 05:02 Ofirmev Injection - IVPB 1,000 mg Q6H PRN Administration FEVER OR PAIN Albuterol Sulfate 1 amp 06/10/17 10:22 06/10/17 20:04 Ventolin 0.083% Nebulizer Soln - NEB 1 amp Q1H PRN Administration SHORT OF BREATH/WHEEZING Albuterol Sulfate 1 amp 06/10/17 11:56 06/11/17 11:44 Ventolin 0.083% Nebulizer Soln - NEB 1 amp QIDR ANNA Administration Diltiazem HCl 30 mg 06/02/17 19:16 06/02/17 19:20 Cardizem Injection - IVPUSH 30 mg Q6H PRN Administration TACHYCARDIA Diltiazem HCl 180 mg 06/03/17 10:00 06/11/17 11:10 Cardizem Cd - PO Not Given DAILY ANNA Docusate Sodium 100 mg 06/02/17 22:00 06/11/17 06:08 Colace - PO 100 mg TID ANNA Administration Fluconazole 50 mls @ 50 mls/hr 06/09/17 19:15 06/11/17 10:52 Diflucan 100 Mg/Ns Premixed Ivpb - IVPB 50 mls/hr DAILY ANNA Administration Sodium Chloride 1,000 mls @ 75 mls/hr 06/10/17 15:57 06/10/17 17:40 Normal Saline - IV 75 mls/hr ASDIR ANNA Administration Meropenem 500 mg in 10 mls @ 120 mls/hr 06/11/17 12:15 Merrem (Restricted To Id) - IVPUSH BID ANNA Insulin Aspart 1 vial 06/10/17 16:30 06/11/17 11:09 Novolog Vial Sliding Scale - SQ Not Given ACHS [facility] Protocol Lorazepam 0.5 mg 06/02/17 19:24 06/11/17 04:23 Ativan - PO 0.5 mg TID PRN Administration ANXIETY Methylprednisolone Sodium Succinate 40 mg 06/10/17 18:00 06/11/17 10:43 Solu-Medrol - IVPUSH 40 mg Q8H-IV ANNA Administration Nitroglycerin 1 inch 06/11/17 10:00 06/11/17 08:30 Nitro-Bid 2% Paste - TD 1 inch QID ANNA Administration Ondansetron HCl 4 mg 06/08/17 19:34 06/08/17 19:50 Zofran Injection IVPUSH 4 mg Q8H PRN Administration NAUSEA AND/OR VOMITING Ranitidine HCl 300 mg 06/03/17 18:30 06/10/17 17:30 Zantac - PO 300 mg DAILY@1800 ANNA Administration Tiotropium [place] 1 puff 06/03/17 10:00 06/11/17 10:53 Spiriva - IH Not Given DAILY ANNA Tramadol HCl 50 mg 06/10/17 20:58 06/11/17 04:07 Ultram - PO 50 mg Q8H PRN Administration PAIN 1. CKD with acute component 2. AAA 3. lung cancer 4. HTN 5. a-fib 6. chol 7. hx hydropneumothorax 8. GI bleed 9. sepsis 10. leukocytosis Plan - agree with ICU transfer - ID follow up - follow blood cultures - will monitor renal function - cont bipap - pulm follow up - monitor BP - will follow Dr Shearer
[2017-06-11] MEDS: MEROPENEM 500 MG PUSH 500 MG/10 ML DISP.SYRIN IVPUSH SCH ×2 (15:29→21:24)
[2017-06-11] MEDS: SODIUM CHLORIDE 1,000 ML IV SCH (15:29)
[2017-06-11] MEDS: RANITIDINE HCL 150 MG TABLET (FP) PO SCH (17:20)
--- NOTE | 2017-06-11 17:45 | PATH ---
Surgical Pathology Report Patient Name: MYRNA TARCEY [facility]. Rec. #: [id number] /Age/Gender: 1940 (Age: 77) / F Account: [id number] Location: 4 W TELEMETRY U Taken: 06/10/2017 Received: 06/10/2017 Reported: 06/11/2017 Physicians: Brandon Doe M.D. Specimen(s) Received A: BX MUCOSAL PLAQUE IN PREPYLORIC AREA B: BX ESOPHAGUS Clinical History Preoperative diagnosis: Melena Postoperative diagnosis: Rule out padmini esophagitis, antral AVM, mucosal plaque in prepyloric area, attempted colonoscopy Final Diagnosis A. PREPYLORIC AREA, MUCOSAL PLAQUE, BIOPSY: GASTRIC MUCOSA WITH MILD CHRONIC ACTIVE GASTRITIS AND INTESTINAL METAPLASIA. NO DYSPLASIA IDENTIFIED. DIFF-QUIK SPECIAL STAIN IS NEGATIVE FOR HELICOBACTER-LIKE ORGANISMS. B. ESOPHAGUS, BIOPSY: SQUAMOUS MUCOSA WITH FOCAL MARKED ACUTE INFLAMMATION AND ULCERATION. FUNGAL FORMS ARE NOTED CONSISTENT WITH PADMINI SPECIES. DETACHED COLUMNAR MUCOSA WITH MILD CHRONIC INFLAMMATION AND FOCAL INTESTINAL METAPLASIA. NO DYSPLASIA IDENTIFIED. Electronically Signed Julia Jang M.D. Gross Description A. Received in formalin, labeled "biopsy mucosal plaque in prepyloric area" is a whitley, irregular portion of soft tissue measuring 0.2 cm. in greatest dimension. The specimen is submitted in toto in one cassette. B. Received in formalin, labeled "biopsy esophagus" are 5 whitley, irregular portions of soft tissue ranging from 0.2-0.4 cm. in greatest dimension. The specimens are submitted in toto in one cassette. 06/10/201706/10/2017
[2017-06-11] MEDS ORDERED: INSULIN (NOVOLOG) ASPART 100 UNITS/ML 10ML VIAL ONE (21:19)
[2017-06-12] MEDS: ALBUTEROL SO4 0.083% IH SOL 2.5 MG/3 ML VIAL.NEB. NEB SCH ×5 (00:21→23:20)
[2017-06-12] MEDS: methylPREDNISolone NA SUCC 40 MG/1 ML VIAL IVPUSH SCH ×3 (03:00→17:33)
[2017-06-12] MEDS: DOCUSATE SODIUM 100 MG CAPSULE (FP) PO SCH ×3 (06:08→22:02)
[2017-06-12] MEDS: INSULIN SLIDING SCALE (NOVOLOG) 1 VIAL SQ SCH ×4 (06:08→22:15)
[2017-06-12 07:12] LABS: HEMATOCRIT 28.4 % (32.4-45.2); MCH 29.1 pg (25.7-33.7); MCHC 31.8 g/dl (32.0-36.0); MEAN CELL VOLUME 91.6 fl (80-96); MEAN PLT VOLUME 7.7 fl (7.5-11.1); PLATELET COUNT 249 K/MM3 (134-434); RDW 15.4 % (11.6-15.6)
[2017-06-12 07:20] LABS: WHITE BLOOD COUNT 36.5 K/mm3 (4.0-10.0)
[2017-06-12 07:33] LABS: ALBUMIN 2.1 g/dl (3.4-5.0); ANION GAP 9 (8-16); BILIRUBIN,TOTAL 0.3 mg/dL (0.2-1.0); CALCIUM 7.1 mg/dL (8.5-10.1); CHLORIDE 94 mmol/L (98-107); CO2 28 mmol/L (21-32); CREATININE 3.3 mg/dL (0.55-1.02); GLUCOSE,RANDOM 158 mg/dL (74-106); POTASSIUM 4.6 mmol/L (3.5-5.1); SGOT/AST 12 U/L (15-37); SGPT/ALT 40 U/L (12-78); SODIUM 131 mmol/L (136-145); TOT PROT 5.2 g/dl (6.4-8.2)
[2017-06-12 07:36] LABS: ALK PHOS 60 U/L (45-117)
[2017-06-12 08:42] LABS: BLOOD UREA NITROGEN 109 mg/dL (7-18)
[2017-06-12] MEDS: MEROPENEM 500 MG PUSH 500 MG/10 ML DISP.SYRIN IVPUSH SCH ×2 (09:02→23:31)
[2017-06-12] MEDS: NITROGLYCERIN 2% OINTMENT - 1GM PACKET TD SCH ×4 (09:02→22:02)
[2017-06-12] MEDS: traMADol HCL 50 MG TABLET PO PRN (09:02)
[2017-06-12] MEDS: TIOTROPIUM BROMIDE 18 MCG/INH (DEVICE W/ 5 CAPSULES) IH SCH (09:03)
[2017-06-12] MEDS: FLUCONAZOLE 100 MG/NS 50 ML IVPB SCH (09:08)
--- NOTE | 2017-06-12 09:21 | PN ---
Progress Note, Physician Chief Complaint: ID Respiratory distress usng BIPAP mask Complaining of abd pain upper abd Given Meropenem and dose of Vancomycin day 1 - Current Medication List Current Medications: Active Medications Acetaminophen (Tylenol -) 650 mg PO Q6H PRN PRN Reason: FEVER OR PAIN Last Admin: 06/10/17 23:15 Dose: 650 mg Acetaminophen (Ofirmev Injection -) 1,000 mg IVPB Q6H PRN PRN Reason: FEVER OR PAIN Last Admin: 06/03/17 05:02 Dose: 1,000 mg Albuterol Sulfate (Ventolin 0.083% Nebulizer Soln -) 1 amp NEB Q1H PRN PRN Reason: SHORT OF BREATH/WHEEZING Last Admin: 06/10/17 20:04 Dose: 1 amp Albuterol Sulfate (Ventolin 0.083% Nebulizer Soln -) 1 amp NEB QIDR ANNA Last Admin: 06/12/17 07:12 Dose: 1 amp Diltiazem HCl (Cardizem Injection -) 30 mg IVPUSH Q6H PRN PRN Reason: TACHYCARDIA Last Admin: 06/02/17 19:20 Dose: 30 mg Diltiazem HCl (Cardizem Cd -) 180 mg PO DAILY [facility] Last Admin: 06/12/17 09:02 Dose: 180 mg Docusate Sodium (Colace -) 100 mg PO TID [facility] Last Admin: 06/12/17 06:08 Dose: Not Given Fluconazole (Diflucan 100 Mg/Ns Premixed Ivpb -) 50 mls @ 50 mls/hr IVPB DAILY [facility] Last Admin: 06/12/17 09:08 Dose: 50 mls/hr Sodium Chloride (Normal Saline -) 1,000 mls @ 75 mls/hr IV ASDIR [facility] Last Admin: 06/11/17 15:29 Dose: Not Given Meropenem (Merrem (Restricted To Id) -) 500 mg in 10 mls @ 120 mls/hr IVPUSH BID [facility] Last Admin: 06/12/17 09:02 Dose: 120 mls/hr Insulin Aspart (Novolog Vial Sliding Scale -) 1 vial SQ ACHS ANNA PRN Reason: Protocol Last Admin: 06/12/17 06:08 Dose: Not Given Lorazepam (Ativan -) 0.5 mg PO TID PRN PRN Reason: ANXIETY Last Admin: 06/11/17 04:23 Dose: 0.5 mg Methylprednisolone Sodium Succinate (Solu-Medrol -) 40 mg IVPUSH Q8H-IV ANNA Last Admin: 06/12/17 09:02 Dose: 40 mg Nitroglycerin (Nitro-Bid 2% Paste -) 1 inch TD QID ANNA Last Admin: 06/12/17 09:02 Dose: 1 inch Ondansetron HCl (Zofran Injection) 4 mg IVPUSH Q8H PRN PRN Reason: NAUSEA AND/OR VOMITING Last Admin: 06/08/17 19:50 Dose: 4 mg Ranitidine HCl (Zantac -) 300 mg PO DAILY@1800 [facility] Last Admin: 06/11/17 17:20 Dose: 300 mg Tiotropium [place] (Spiriva -) 1 puff IH DAILY [facility] Last Admin: 06/12/17 09:03 Dose: Not Given Tramadol HCl (Ultram -) 50 mg PO Q8H PRN PRN Reason: PAIN Last Admin: 06/12/17 09:02 Dose: 50 mg - Objective Vital Signs: Vital Signs Temperature 97.1 F L 06/12/17 07:43 Pulse Rate 84 06/12/17 07:43 Respiratory Rate 20 06/12/17 07:43 Blood Pressure 136/72 06/12/17 07:43 O2 Sat by Pulse Oximetry (%) 99 06/12/17 06:40 Neck: Yes: WNL, Supple Cardiovascular: Yes: Regular Rate and Rhythm, S1, S2. No: Murmur Respiratory: Yes: WNL, Regular, CTA Bilaterally. No: Rales, Rhonchi Gastrointestinal: Yes: WNL, Normal Bowel Sounds, Soft, Hypoactive Bowel Sounds, Tenderness, Tenderness, Rebound Labs: CBC, BMP 06/12/17 05:05 06/12/17 05:05 INR, PTT INR 1.08 (0.82-1.09) 05/25/17 14:07 Assessment/Plan Laboratory Tests 06/12/17 06/12/17 05:05 05:05 WBC 36.5 H* Hgb 9.0 L Hct 28.4 L Plt Count 249 BUN 109 H* Creatinine 3.3 H Microbiology 06/05/17 13:05 Blood - Peripheral Venous Blood Culture - Final NO GROWTH AFTER 5 DAYS INCUBATION 06/05/17 12:58 Blood - Peripheral Venous Blood Culture - Final NO GROWTH AFTER 5 DAYS INCUBATION Assessment History of lobectomy for lung cancer Leukocytosis ? steroids vs infection Acute and chronic renal failure COPD Patient with severe abd tenderness now with leukocytosis ? perforation intrabdominal source of infection Plan ICU transfer CT abd and pelvis via NGT if needed oral contrast General surgery consultation abd pain Continue Meropenem which will cover the abdomen Discussed at length with Dr Qureshi ON diflucan ?? per YSABEL Lagunas MD
[2017-06-12 10:03] LABS: PLATELET ESTIMATE ADEQUATE
--- NOTE | 2017-06-12 10:26 | CONSULT ---
Consult - text type - Consultation Consultation Note: Pulm/CCM Cosult CC: SOB This is a 77 yo CKD, HTN, smoker, COPD, and lung cancer s/p lobectomy ~3 months ago c/b a-fib on Eliquis who presents to ED with c/o weakness, n/v and dark stools. She was found to have a AAA now s/p and EVAR of the AAA. Her course has been complicated by UGIB with likely c/b aspiration event requiring NIPPV for respiratory support. ABX were escalated by ID the day prior to ICU transfer: meropenem/vanco. She is being transferred to ICU for increased WOB. Active Medications Acetaminophen (Tylenol -) 650 mg PO Q6H PRN PRN Reason: FEVER OR PAIN Last Admin: 06/10/17 23:15 Dose: 650 mg Acetaminophen (Ofirmev Injection -) 1,000 mg IVPB Q6H PRN PRN Reason: FEVER OR PAIN Last Admin: 06/03/17 05:02 Dose: 1,000 mg Albuterol Sulfate (Ventolin 0.083% Nebulizer Soln -) 1 amp NEB Q1H PRN PRN Reason: SHORT OF BREATH/WHEEZING Last Admin: 06/10/17 20:04 Dose: 1 amp Albuterol Sulfate (Ventolin 0.083% Nebulizer Soln -) 1 amp NEB QIDR ANNA Last Admin: 06/12/17 07:12 Dose: 1 amp Diltiazem HCl (Cardizem Injection -) 30 mg IVPUSH Q6H PRN PRN Reason: TACHYCARDIA Last Admin: 06/02/17 19:20 Dose: 30 mg Diltiazem HCl (Cardizem Cd -) 180 mg PO DAILY [facility] Last Admin: 06/12/17 09:02 Dose: 180 mg Docusate Sodium (Colace -) 100 mg PO TID ANNA Last Admin: 06/12/17 06:08 Dose: Not Given Fluconazole (Diflucan 100 Mg/Ns Premixed Ivpb -) 50 mls @ 50 mls/hr IVPB DAILY [facility] Last Admin: 06/12/17 09:08 Dose: 50 mls/hr Sodium Chloride (Normal Saline -) 1,000 mls @ 75 mls/hr IV ASDIR [facility] Last Admin: 06/11/17 15:29 Dose: Not Given Meropenem (Merrem (Restricted To Id) -) 500 mg in 10 mls @ 120 mls/hr IVPUSH BID ANNA Last Admin: 06/12/17 09:02 Dose: 120 mls/hr Insulin Aspart (Novolog Vial Sliding Scale -) 1 vial SQ ACHS ANNA PRN Reason: Protocol Last Admin: 06/12/17 06:08 Dose: Not Given Lorazepam (Ativan -) 0.5 mg PO TID PRN PRN Reason: ANXIETY Last Admin: 06/11/17 04:23 Dose: 0.5 mg Methylprednisolone Sodium Succinate (Solu-Medrol -) 40 mg IVPUSH Q8H-IV ANNA Last Admin: 06/12/17 09:02 Dose: 40 mg Nitroglycerin (Nitro-Bid 2% Paste -) 1 inch TD QID ANNA Last Admin: 06/12/17 09:02 Dose: 1 inch Ondansetron HCl (Zofran Injection) 4 mg IVPUSH Q8H PRN PRN Reason: NAUSEA AND/OR VOMITING Last Admin: 06/08/17 19:50 Dose: 4 mg Ranitidine HCl (Zantac -) 300 mg PO DAILY@1800 [facility] Last Admin: 06/11/17 17:20 Dose: 300 mg Tiotropium [place] (Spiriva -) 1 puff IH DAILY [facility] Last Admin: 06/12/17 09:03 Dose: Not Given Tramadol HCl (Ultram -) 50 mg PO Q8H PRN PRN Reason: PAIN Last Admin: 06/12/17 09:02 Dose: 50 mg Vital Signs Period Temp Pulse Resp BP Sys/Sellers Pulse Ox Last 24 Hr 97.1 F-97.6 F 78-86 18-20 114-140/52-77 99-100 Intake & Output 06/09/17 06/10/17 06/11/17 06/12/17 23:59 23:59 23:59 23:59 Intake Total 1460 1090 460 500 Output Total 0 Balance 1460 1090 460 500 Exam General: awake and alert, c/o SOB HEENT: PERRL CV: s1, s2 RRR Pulm: diminished on left side Abd: tender to LUQ Ext: WWP Neuro: grossly intact CBCD WBC 36.5 K/mm3 (4.0-10.0) H* 06/12/17 05:05 RBC 3.10 M/mm3 (3.60-5.2) L 06/12/17 05:05 Hgb 9.0 GM/dL (10.7-15.3) L 06/12/17 05:05 Hct 28.4 % (32.4-45.2) L 06/12/17 05:05 MCV 91.6 fl (80-96) 06/12/17 05:05 MCHC 31.8 g/dl (32.0-36.0) L 06/12/17 05:05 RDW 15.4 % (11.6-15.6) 06/12/17 05:05 Plt Count 249 K/MM3 (134-434) 06/12/17 05:05 MPV 7.7 fl (7.5-11.1) 06/12/17 05:05 CMP Sodium 131 mmol/L (136-145) L 06/12/17 05:05 Potassium 4.6 mmol/L (3.5-5.1) 06/12/17 05:05 Chloride 94 mmol/L (98-107) L 06/12/17 05:05 Carbon Dioxide 28 mmol/L (21-32) 06/12/17 05:05 Anion Gap 9 (8-16) 06/12/17 05:05 BUN 109 mg/dL (7-18) H* 06/12/17 05:05 Creatinine 3.3 mg/dL (0.55-1.02) H 06/12/17 05:05 Creat Clearance w eGFR 13.63 (>60) 06/12/17 05:05 Random Glucose 158 mg/dL (74-106) H D 06/12/17 05:05 Calcium 7.1 mg/dL (8.5-10.1) L 06/12/17 05:05 Total Bilirubin 0.3 mg/dL (0.2-1.0) D 06/12/17 05:05 AST 12 U/L (15-37) L D 06/12/17 05:05 ALT 40 U/L (12-78) D 06/12/17 05:05 Alkaline Phosphatase 60 U/L (45-117) 06/12/17 05:05 Total Protein 5.2 g/dl (6.4-8.2) L 06/12/17 05:05 Albumin 2.1 g/dl (3.4-5.0) L 06/12/17 05:05 CARDIAC ENZYMES Creatine Kinase 105 IU/L (26-192) 06/11/17 08:10 Troponin I 0.02 ng/ml (0.00-0.05) 06/11/17 08:10 CXR: pending A/P: Respiratory distress AAA s/p EVAR Lung Ca s/p LLL lobectomy COPD Atrial Fibrillation Acute on CKD 77 yo woman stage I lung ca, s/p resection in 02/2017. CKD Stage IV, AAA now s/p and EVAR, c/c/b UGIB: AVM, gastric erosions now with increased WOB on NIPPV c/f aspiration pna vs abd perf/ischemic bowel vs c. diff (abd pain and leukocytosis ) - cont ABX per ID, will add flagyl for c. diff coverage - CTAP per ID - Surgery following will review CTAP - STAT labs - CXR now - continue steroids - BIPAP as needed for SOB - O2 for sat >90% - inhaled bronchodilators - incentive spirometry - renal dose medications - Renal following - rate control - continue anticoagulation - DVT prophylaxis Boerem ACNP Pulm/CCM CCT: 35m
--- NOTE | 2017-06-12 10:33 | CONSULT ---
Consult Consult Specialty:: general surgery Referred by:: nataliya Reason for Consultation:: abdominal pain after AAA repair - History of Present Illness Chief Complaint: Abdominal pain History of Present Illness: 77 yo female PMH CKD, HTN, COPD and lung cancer s/p lobectomy ~3months ago, a- fib on Eliquis who presents to ED with c/o weakness, n/v and dark stools. She is found to have a AAA that has increased in size (5.4 to 5.8cm) during her hospitalization. She is now s/p and EVAR of the AAA on 05/31. She developed gradual worsening left abdominal pain and increased work of breathing over the past 2 days. She denies fever and chills. She has not been vomiting. She is transferred to ICU for further management. We were asked to assess in the ICU. 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 No: Fibromyalgia ENT: No: Allergic Rhinitis Endocrine: Yes: Hyperparathyroidism (Hearing loss) - Past Surgical History Past Surgical History: Yes: Thoracotomy - Alcohol/Substance Use Hx Alcohol Use: No - Smoking History Smoking history: Current every day smoker Have you smoked in the past 12 months: Yes Aproximately how many cigarettes per day: 5 If you are a former smoker, when did you quit?: 1 week ago - Social History Place of : [facility] History of Recent Travel: No Home Medications - Allergies Allergies/Adverse Reactions: Allergies Allergy/AdvReac Type Severity Reaction Status Date / Time No Known Allergies Allergy Verified 05/25/17 11:50 - Home Medications Home Medications: Ambulatory Orders RX: Lorazepam [Ativan] 0.5 mg PO HS 03/07/17 RX: Acetaminophen [Tylenol .Regular Strength -] 650 mg PO Q4H PRN #0 tablet RX: Budesonide/Formeterol Fumarate [SYMBICORT 160/4.5mcg -] 2 puff IH BID #1 inhaler 03/15/17 RX: Diltiazem Cd [Cardizem Cd -] 180 mg PO DAILY #30 cap 03/15/17 RX: Prednisone [Deltasone -] 40 mg PO DAILY #10 tablet 03/15/17 RX: Apixaban [Eliquis] 2.5 mg PO HS 04/28/17 Review of Systems - Review of Systems Constitutional: denies: Chills, Fever Eyes: denies: Blurred Vision, Recent Change in Vision HENT: denies: Difficult Swallowing, Throat Pain Cardiovascular: reports: Palpitations. denies: Chest Pain Respiratory: reports: Cough, SOB, Other (left thoracomtomy) Gastrointestinal: reports: Abdominal Pain, Bloating Genitourinary: denies: Burning, Lesions Musculoskeletal: denies: Muscle Pain, Muscle Weakness Integumentary: denies: Lesions, Rash Neurological: denies: Seizure, Syncope Endocrine: denies: Unexplained Weight Gain, Unexplained Weight Loss Hematology/Lymphatic: denies: Easily Bruised, Excessive Bleeding Psychiatric: denies: Anxiety, Depression Physical Exam Vital Signs: Vital Signs Temperature 97.1 F L 06/12/17 07:43 Pulse Rate 86 06/12/17 09:51 Respiratory Rate 20 06/12/17 09:00 Blood Pressure 136/72 06/12/17 07:43 O2 Sat by Pulse Oximetry (%) 100 06/12/17 09:51 Vital Signs Period Temp Pulse Resp BP Sys/Sellers Pulse Ox Last 24 Hr 97.1 F-97.6 F 78-86 18-20 114-140/52-77 99-100 Constitutional: Yes: Well Nourished, No Distress, Calm Eyes: Yes: Conjunctiva Clear, EOM Intact HENT: Yes: Atraumatic, Normocephalic, Other (on BIpap) Neck: Yes: Supple, Trachea Midline Cardiovascular: Yes: S1, S2. No: Regular Rate and Rhythm Respiratory: Yes: Regular, Diminished (left diminished) Gastrointestinal: Yes: Soft, Hyperactive Bowel Sounds, Tenderness, Tenderness, Rebound (left sided rebound and voluntary guarding) ...Rectal Exam: Yes: Guaiac Positive, Sphincter Tone Normal, Sphincter Tone Poor. No: Mass Renal/: No: CVA Tenderness - Left, CVA Tenderness - Right Extremities: No: Cool, Cyanosis Edema: No Peripheral Pulses WNL: Yes Integumentary: Yes: Bruising (extremites). No: Jaundice Neurological: Yes: Alert, Oriented Psychiatric: Yes: Alert, Oriented Labs: CBC, BMP 06/12/17 05:05 06/12/17 05:05 CBC,CMP WBC 37.3 K/mm3 (4.0-10.0) H* 06/12/17 11:15 RBC 3.18 M/mm3 (3.60-5.2) L 06/12/17 11:15 Hgb 9.2 GM/dL (10.7-15.3) L 06/12/17 11:15 Hct 29.1 % (32.4-45.2) L 06/12/17 11:15 MCV 91.3 fl (80-96) 06/12/17 11:15 MCH 29.0 pg (25.7-33.7) 06/12/17 11:15 MCHC 31.7 g/dl (32.0-36.0) L 06/12/17 11:15 RDW 15.6 % (11.6-15.6) 06/12/17 11:15 Plt Count 279 K/MM3 (134-434) 06/12/17 11:15 MPV 7.6 fl (7.5-11.1) 06/12/17 11:15 Total Counted 100 06/12/17 05:05 Neutrophils % No Result Required. 06/12/17 05:05 Neutrophils % (Manual) 98.0 % (42.8-82.8) H* 06/12/17 05:05 Band Neutrophils % 1.0 % 06/12/17 05:05 Lymphocytes % No Result Required. 06/12/17 05:05 Lymphocytes % (Manual) 1.0 % (8-40) L D 06/11/17 05:37 Monocytes % 7.2 % (3.8-10.2) 05/25/17 13:15 Monocytes % (Manual) 1 % (3.8-10.2) L 06/12/17 05:05 Eosinophils % 0.6 % (0-4.5) D 05/25/17 13:15 Eosinophils % (Manual) 0.0 % (0-4.5) 06/11/17 05:37 Basophils % 0.3 % (0-2.0) 05/25/17 13:15 Basophils % (Manual) 0.0 % (0-2.0) 06/11/17 05:37 Myelocytes % (Man) 1 % (0-2) 06/11/17 05:37 Nucleated RBC % 1 % (0-0) H 06/07/17 05:28 Metamyelocytes 2 % (0-2) 06/11/17 05:37 Hypochromia 0 06/11/17 05:37 Toxic Granulation 0 06/07/17 05:28 Dohle Bodies 0 06/07/17 05:28 Platelet Estimate Adequate 06/12/17 05:05 Polychromasia 0 06/11/17 05:37 Poikilocytosis 1+ 06/11/17 05:37 Basophilic Stippling 0 06/07/17 05:28 Anisocytosis 3+ 06/11/17 05:37 Microcytosis 3+ 06/11/17 05:37 Macrocytosis 0 06/11/17 05:37 Spherocytes 0 06/07/17 05:28 Sickle Cells 0 06/07/17 05:28 Target Cells 0 06/07/17 05:28 Tear Drop Cells 0 06/07/17 05:28 Ovalocytes 0 06/07/17 05:28 Stomatocytes 0 06/07/17 05:28 Helmet Cells 0 06/07/17 05:28 Loco-Madison Bodies 0 06/07/17 05:28 Elon Rings 0 06/07/17 05:28 Dexter Cells 0 06/07/17 05:28 Acanthocytes (Spur) 0 06/07/17 05:28 Fragmented RBCs 0 06/07/17 05:28 Schistocytes 0 06/07/17 05:28 Sodium 131 mmol/L (136-145) L 06/12/17 11:15 Potassium 4.8 mmol/L (3.5-5.1) 06/12/17 11:15 Chloride 91 mmol/L (98-107) L 06/12/17 11:15 Carbon Dioxide 29 mmol/L (21-32) 06/12/17 11:15 Anion Gap 11 (8-16) 06/12/17 11:15 BUN 105 mg/dL (7-18) H* 06/12/17 11:15 Creatinine 3.6 mg/dL (0.55-1.02) H 06/12/17 11:15 Creat Clearance w eGFR 13.63 (>60) 06/12/17 05:05 POC Glucometer 185 UNITS (80-120) 06/12/17 05:43 Random Glucose 223 mg/dL (74-106) H D 06/12/17 11:15 Lactic Acid 1.0 mmol/L (0.4-2.0) 06/12/17 11:15 Calcium 7.3 mg/dL (8.5-10.1) L 06/12/17 11:15 Phosphorus 6.8 mg/dL (2.5-4.9) H 06/12/17 11:15 Magnesium 9.2 mg/dL (1.8-2.4) H* D 06/12/17 11:15 Ferritin 100.588 ng/ml (6.9-282.5) 06/12/17 05:05 Total Bilirubin 0.3 mg/dL (0.2-1.0) 06/12/17 11:15 Direct Bilirubin < 0.2 mg/dL (0.0-0.2) 06/12/17 11:15 AST 13 U/L (15-37) L 06/12/17 11:15 ALT 41 U/L (12-78) 06/12/17 11:15 Alkaline Phosphatase 66 U/L (45-117) 06/12/17 11:15 Creatine Kinase 105 IU/L (26-192) 06/11/17 08:10 Troponin I 0.02 ng/ml (0.00-0.05) 06/11/17 08:10 B-Natriuretic Peptide 7287.04 pg/ml (5-450) H 05/25/17 13:15 Total Protein 5.9 g/dl (6.4-8.2) L 06/12/17 11:15 Albumin 2.3 g/dl (3.4-5.0) L 06/12/17 11:15 Lipase 319 U/L (73-393) 05/25/17 13:15 Imaging - Results X-ray: Report Reviewed, Image Reviewed Cat Scan: Pending Problem List - Problems (1) Left sided abdominal pain Assessment/Plan: 77 yo MMP s/p AAA EVAR 05/31, left sided abdominal pain for two days, wbc (on steroid) now 37, lactic acid 1.0, ABG BE 5.0, we must consider ischemic cololitis despite the fact that repair was ~10days ago. CT scan abdomen and pelvis with PO contrast Broad spectrum Iv antibiotics per ID GI search engine optimization consultant follow up consider proctosigmoidoscopy/ colonoscopy to evaluate for mucosal viability trend labs will follow for serial exam the possibility of surgical exploration was discussed with the patient. We will review the CTscan and present options. Code(s): R10.9 - UNSPECIFIED ABDOMINAL PAIN (2) CHF (congestive heart failure) Code(s): I50.9 - HEART FAILURE, UNSPECIFIED (3) COPD exacerbation Code(s): J44.1 - CHRONIC OBSTRUCTIVE PULMONARY DISEASE W (ACUTE) EXACERBATION (4) History of endovascular stent graft for abdominal aortic aneurysm (AAA) Code(s): Z95.828 - PRESENCE OF OTHER VASCULAR IMPLANTS AND GRAFTS (5) Melena Code(s): K92.1 - MELENA (6) Atrial fibrillation Code(s): I48.91 - UNSPECIFIED ATRIAL FIBRILLATION Qualifiers: Atrial fibrillation type: persistent Qualified Code(s): I48.1 - Persistent atrial fibrillation (7) Lung malignancy Code(s): C34.90 - MALIGNANT NEOPLASM OF UNSP PART OF UNSP BRONCHUS OR LUNG Qualifiers: Laterality: left
[2017-06-12 11:32] LABS: HEMATOCRIT 29.1 % (32.4-45.2); HEMOGLOBIN 9.2 GM/dL (10.7-15.3); MCHC 31.7 g/dl (32.0-36.0); MEAN CELL VOLUME 91.3 fl (80-96); MEAN PLT VOLUME 7.6 fl (7.5-11.1); PLATELET COUNT 279 K/MM3 (134-434); RBC 3.18 M/mm3 (3.60-5.2); RDW 15.6 % (11.6-15.6)
[2017-06-12 11:56] LABS: ALBUMIN 2.3 g/dl (3.4-5.0); ANION GAP 11 (8-16); BILIRUBIN,DIRECT < 0.2 mg/dL (0.0-0.2); BILIRUBIN,TOTAL 0.3 mg/dL (0.2-1.0); CALCIUM 7.3 mg/dL (8.5-10.1); CHLORIDE 91 mmol/L (98-107); CO2 29 mmol/L (21-32); CREATININE 3.6 mg/dL (0.55-1.02); GLUCOSE,RANDOM 223 mg/dL (74-106); PHOSPHOROUS 6.8 mg/dL (2.5-4.9); POTASSIUM 4.8 mmol/L (3.5-5.1); SGOT/AST 13 U/L (15-37); SGPT/ALT 41 U/L (12-78); SODIUM 131 mmol/L (136-145); TOT PROT 5.9 g/dl (6.4-8.2)
[2017-06-12 11:57] LABS: ALK PHOS 66 U/L (45-117)
[2017-06-12 12:00] LABS: WHITE BLOOD COUNT 37.3 K/mm3 (4.0-10.0)
[2017-06-12 12:03] LABS: BLOOD UREA NITROGEN 105 mg/dL (7-18); MAGNESIUM 9.2 mg/dL (1.8-2.4)
[2017-06-12 12:05] LABS: INR 0.89 (0.82-1.09); PROTHROMBIN TIME (PATIENT) 10.1 SEC (9.98-11.88)
[2017-06-12 12:08] LABS: ACTIVATED PTT 20.3 SECONDS (26.9-34.4)
[2017-06-12 13:56] LABS: ARTERIAL BLD GAS O2 SATURATION 99.7 % (90-98.9); ARTERIAL BLOOD GAS BASE EXCESS 3.2 meq/l (-2-2); ARTERIAL BLOOD GAS PCO2 40.4 mmHg (35-45); ARTERIAL BLOOD GAS pH 7.44 (7.35-7.45)
[2017-06-12 14:00] LABS: ALLENS TEST POSITIVE
[2017-06-12] MEDS: SODIUM CHLORIDE 1,000 ML IV SCH (14:00)
--- NOTE | 2017-06-12 14:07 | PN ---
Progress Note, Physician History of Present Illness: C/O SOB NO CP - Current Medication List Current Medications: Active Medications Acetaminophen (Tylenol -) 650 mg PO Q6H PRN PRN Reason: FEVER OR PAIN Last Admin: 06/10/17 23:15 Dose: 650 mg Acetaminophen (Ofirmev Injection -) 1,000 mg IVPB Q6H PRN PRN Reason: FEVER OR PAIN Last Admin: 06/03/17 05:02 Dose: 1,000 mg Albuterol Sulfate (Ventolin 0.083% Nebulizer Soln -) 1 amp NEB Q1H PRN PRN Reason: SHORT OF BREATH/WHEEZING Last Admin: 06/10/17 20:04 Dose: 1 amp Albuterol Sulfate (Ventolin 0.083% Nebulizer Soln -) 1 amp NEB QIDR ANNA Last Admin: 06/12/17 11:56 Dose: 1 amp Diltiazem HCl (Cardizem Injection -) 30 mg IVPUSH Q6H PRN PRN Reason: TACHYCARDIA Last Admin: 06/02/17 19:20 Dose: 30 mg Diltiazem HCl (Cardizem Cd -) 180 mg PO DAILY [facility] Last Admin: 06/12/17 09:02 Dose: 180 mg Docusate Sodium (Colace -) 100 mg PO TID [facility] Last Admin: 06/12/17 06:08 Dose: Not Given Fluconazole (Diflucan 100 Mg/Ns Premixed Ivpb -) 50 mls @ 50 mls/hr IVPB DAILY [facility] Last Admin: 06/12/17 09:08 Dose: 50 mls/hr Sodium Chloride (Normal Saline -) 1,000 mls @ 75 mls/hr IV ASDIR [facility] Last Admin: 06/11/17 15:29 Dose: Not Given Meropenem (Merrem (Restricted To Id) -) 500 mg in 10 mls @ 120 mls/hr IVPUSH BID [facility] Last Admin: 06/12/17 09:02 Dose: 120 mls/hr Metronidazole (Flagyl 500mg Premixed Ivpb -) 500 mg in 100 mls @ 100 mls/hr IVPB BID [facility] Insulin Aspart (Novolog Vial Sliding Scale -) 1 vial SQ ACHS ANNA PRN Reason: Protocol Last Admin: 06/12/17 11:17 Dose: 2 units Lorazepam (Ativan -) 0.5 mg PO TID PRN PRN Reason: ANXIETY Last Admin: 06/11/17 04:23 Dose: 0.5 mg Methylprednisolone Sodium Succinate (Solu-Medrol -) 40 mg IVPUSH Q8H-IV ANNA Last Admin: 06/12/17 09:02 Dose: 40 mg Nitroglycerin (Nitro-Bid 2% Paste -) 1 inch TD QID ANNA Last Admin: 06/12/17 09:02 Dose: 1 inch Ondansetron HCl (Zofran Injection) 4 mg IVPUSH Q8H PRN PRN Reason: NAUSEA AND/OR VOMITING Last Admin: 06/08/17 19:50 Dose: 4 mg Ranitidine HCl (Zantac -) 300 mg PO DAILY@1800 ANNA Last Admin: 06/11/17 17:20 Dose: 300 mg Tiotropium [place] (Spiriva -) 1 puff IH DAILY ANNA Last Admin: 06/12/17 09:03 Dose: Not Given Tramadol HCl (Ultram -) 50 mg PO Q8H PRN PRN Reason: PAIN Last Admin: 06/12/17 09:02 Dose: 50 mg - Objective Vital Signs: Vital Signs Temperature 97.7 F 06/12/17 10:37 Pulse Rate 88 06/12/17 13:38 Respiratory Rate 20 06/12/17 13:38 Blood Pressure 113/66 06/12/17 13:38 O2 Sat by Pulse Oximetry (%) 100 06/12/17 11:55 Cardiovascular: Yes: S1, S2 Respiratory: Yes: Diminished, On BiPap, Rhonchi Gastrointestinal: Yes: Normal Bowel Sounds, Soft Labs: CBC, BMP 06/12/17 11:15 06/12/17 11:15 INR, PTT INR 0.89 (0.82-1.09) 06/12/17 11:15 Problem List - Problems (1) CHF (congestive heart failure) Assessment/Plan: IV LASIX X 1 GIVEN FOLLOW UP CXR MONITOR RENAL FUNCTION Code(s): I50.9 - HEART FAILURE, UNSPECIFIED (2) Pneumonia Assessment/Plan: REPEAT CXR ID F/U--ON ABX Code(s): J18.9 - PNEUMONIA, UNSPECIFIED ORGANISM (3) COPD exacerbation Assessment/Plan: ON STEROIDS NEBS QID ICU MONITORING Code(s): J44.1 - CHRONIC OBSTRUCTIVE PULMONARY DISEASE W (ACUTE) EXACERBATION (4) History of endovascular stent graft for abdominal aortic aneurysm (AAA) Assessment/Plan: PER VASCULAR Code(s): Z95.828 - PRESENCE OF OTHER VASCULAR IMPLANTS AND GRAFTS (5) S/P lobectomy of lung Code(s): Z90.2 - ACQUIRED ABSENCE OF LUNG [PART OF] (6) Atrial fibrillation Code(s): I48.91 - UNSPECIFIED ATRIAL FIBRILLATION Qualifiers: Atrial fibrillation type: persistent Qualified Code(s): I48.1 - Persistent atrial fibrillation (7) Chronic renal disease Assessment/Plan: MONITOR RENAL FOLLOW UP Code(s): N18.9 - CHRONIC KIDNEY DISEASE, UNSPECIFIED Qualifiers: Chronic kidney disease stage: stage 4 (severe) Qualified Code(s): N18.4 - Chronic kidney disease, stage 4 (severe)
[2017-06-12] MEDS: LORazepam 0.5 MG TABLET PO PRN (14:32)
--- NOTE | 2017-06-12 16:18 | PN ---
Progress Note, Physician History of Present Illness: Pt seen and examined at bedside. She is now in the ICU. She is awake and alert. She complains of abdominal pain. - Current Medication List Current Medications: Active Medications Acetaminophen (Tylenol -) 650 mg PO Q6H PRN PRN Reason: FEVER OR PAIN Last Admin: 06/10/17 23:15 Dose: 650 mg Acetaminophen (Ofirmev Injection -) 1,000 mg IVPB Q6H PRN PRN Reason: FEVER OR PAIN Last Admin: 06/03/17 05:02 Dose: 1,000 mg Albuterol Sulfate (Ventolin 0.083% Nebulizer Soln -) 1 amp NEB Q1H PRN PRN Reason: SHORT OF BREATH/WHEEZING Last Admin: 06/10/17 20:04 Dose: 1 amp Albuterol Sulfate (Ventolin 0.083% Nebulizer Soln -) 1 amp NEB QIDR ANNA Last Admin: 06/12/17 11:56 Dose: 1 amp Diltiazem HCl (Cardizem Injection -) 30 mg IVPUSH Q6H PRN PRN Reason: TACHYCARDIA Last Admin: 06/02/17 19:20 Dose: 30 mg Diltiazem HCl (Cardizem Cd -) 180 mg PO DAILY [facility] Last Admin: 06/12/17 09:02 Dose: 180 mg Docusate Sodium (Colace -) 100 mg PO TID [facility] Last Admin: 06/12/17 14:29 Dose: 100 mg Fluconazole (Diflucan 100 Mg/Ns Premixed Ivpb -) 50 mls @ 50 mls/hr IVPB DAILY [facility] Last Admin: 06/12/17 09:08 Dose: 50 mls/hr Sodium Chloride (Normal Saline -) 1,000 mls @ 75 mls/hr IV ASDIR [facility] Last Admin: 06/11/17 15:29 Dose: Not Given Meropenem (Merrem (Restricted To Id) -) 500 mg in 10 mls @ 120 mls/hr IVPUSH BID [facility] Last Admin: 06/12/17 09:02 Dose: 120 mls/hr Metronidazole (Flagyl 500mg Premixed Ivpb -) 500 mg in 100 mls @ 100 mls/hr IVPB BID [facility] Last Admin: 06/12/17 14:29 Dose: 100 mls/hr Insulin Aspart (Novolog Vial Sliding Scale -) 1 vial SQ ACHS [facility] PRN Reason: Protocol Last Admin: 06/12/17 11:17 Dose: 2 units Methylprednisolone Sodium Succinate (Solu-Medrol -) 40 mg IVPUSH Q8H-IV [facility] Last Admin: 06/12/17 09:02 Dose: 40 mg Nitroglycerin (Nitro-Bid 2% Paste -) 1 inch TD QID [facility] Last Admin: 06/12/17 14:30 Dose: 1 inch Ondansetron HCl (Zofran Injection) 4 mg IVPUSH Q8H PRN PRN Reason: NAUSEA AND/OR VOMITING Last Admin: 06/08/17 19:50 Dose: 4 mg Ranitidine HCl (Zantac -) 300 mg PO DAILY@1800 [facility] Last Admin: 06/11/17 17:20 Dose: 300 mg Tiotropium [place] (Spiriva -) 1 puff IH DAILY [facility] Last Admin: 06/12/17 09:03 Dose: Not Given Tramadol HCl (Ultram -) 50 mg PO Q8H PRN PRN Reason: PAIN Last Admin: 06/12/17 09:02 Dose: 50 mg - Objective Vital Signs: Vital Signs Temperature 97.7 F 06/12/17 10:37 Pulse Rate 88 06/12/17 13:38 Respiratory Rate 20 06/12/17 13:38 Blood Pressure 113/66 06/12/17 13:38 O2 Sat by Pulse Oximetry (%) 100 06/12/17 14:19 Constitutional: Yes: Anxious Eyes: Yes: Conjunctiva Clear HENT: Yes: Atraumatic Cardiovascular: Yes: S1, S2 Respiratory: Yes: On BiPap Gastrointestinal: Yes: Soft, Tenderness Genitourinary: Yes: WNL Musculoskeletal: Yes: Muscle Weakness Edema: No Neurological: Yes: Oriented Psychiatric: Yes: Oriented Labs: CBC, BMP 06/12/17 11:15 06/12/17 11:15 INR, PTT INR 0.89 (0.82-1.09) 06/12/17 11:15 Problem List - Problems (1) Abdominal aortic aneurysm (AAA) Code(s): I71.4 - ABDOMINAL AORTIC ANEURYSM, WITHOUT RUPTURE Qualifiers: Presence of rupture: without rupture Qualified Code(s): I71.4 - Abdominal aortic aneurysm, without rupture (2) Stool guaiac positive Code(s): R19.5 - OTHER FECAL ABNORMALITIES (3) Atrial fibrillation Code(s): I48.91 - UNSPECIFIED ATRIAL FIBRILLATION Qualifiers: Atrial fibrillation type: persistent Qualified Code(s): I48.1 - Persistent atrial fibrillation (4) COPD (chronic obstructive pulmonary disease) Code(s): J44.9 - CHRONIC OBSTRUCTIVE PULMONARY DISEASE, UNSPECIFIED Qualifiers: Emphysema type: centrilobular (5) Chronic renal disease Code(s): N18.9 - CHRONIC KIDNEY DISEASE, UNSPECIFIED Qualifiers: Chronic kidney disease stage: stage 4 (severe) Qualified Code(s): N18.4 - Chronic kidney disease, stage 4 (severe) (6) Pneumothorax Code(s): J93.9 - PNEUMOTHORAX, UNSPECIFIED Qualifiers: Pneumothorax type: postprocedural Qualified Code(s): J95.811 - Postprocedural pneumothorax (7) Tobacco use Code(s): Z72.0 - TOBACCO USE Assessment/Plan Current Medications Generic Name Dose Route Start Last Admin Trade Name Freq PRN Reason Stop Dose Admin Acetaminophen 650 mg 06/02/17 19:24 06/10/17 23:15 Tylenol - PO 650 mg Q6H PRN Administration FEVER OR PAIN Acetaminophen 1,000 mg 06/02/17 22:51 06/03/17 05:02 Ofirmev Injection - IVPB 1,000 mg Q6H PRN Administration FEVER OR PAIN Albuterol Sulfate 1 amp 06/10/17 10:22 06/10/17 20:04 Ventolin 0.083% Nebulizer Soln - NEB 1 amp Q1H PRN Administration SHORT OF BREATH/WHEEZING Albuterol Sulfate 1 amp 06/10/17 11:56 06/12/17 11:56 Ventolin 0.083% Nebulizer Soln - NEB 1 amp QIDR ANNA Administration Diltiazem HCl 30 mg 06/02/17 19:16 06/02/17 19:20 Cardizem Injection - IVPUSH 30 mg Q6H PRN Administration TACHYCARDIA Diltiazem HCl 180 mg 06/03/17 10:00 06/12/17 09:02 Cardizem Cd - PO 180 mg DAILY ANNA Administration Docusate Sodium 100 mg 06/02/17 22:00 06/12/17 14:29 Colace - PO 100 mg TID ANNA Administration Fluconazole 50 mls @ 50 mls/hr 06/09/17 19:15 06/12/17 09:08 Diflucan 100 Mg/Ns Premixed Ivpb - IVPB 50 mls/hr DAILY ANNA Administration Sodium Chloride 1,000 mls @ 75 mls/hr 06/10/17 15:57 06/11/17 15:29 Normal Saline - IV Not Given ASDIR ANNA Meropenem 500 mg in 10 mls @ 120 mls/hr 06/11/17 12:15 06/12/17 09:02 Merrem (Restricted To Id) - IVPUSH 120 mls/hr BID ANNA Administration Metronidazole 500 mg in 100 mls @ 100 mls/hr 06/12/17 14:00 06/12/17 14:29 Flagyl 500mg Premixed Ivpb - IVPB 100 mls/hr BID ANNA Administration Insulin Aspart 1 vial 06/10/17 16:30 06/12/17 11:17 Novolog Vial Sliding Scale - SQ 2 units ACHS ANNA Administration Protocol Methylprednisolone Sodium Succinate 40 mg 06/10/17 18:00 06/12/17 09:02 Solu-Medrol - IVPUSH 40 mg Q8H-IV ANNA Administration Nitroglycerin 1 inch 06/11/17 10:00 06/12/17 14:30 Nitro-Bid 2% Paste - TD 1 inch QID ANNA Administration Ondansetron HCl 4 mg 06/08/17 19:34 06/08/17 19:50 Zofran Injection IVPUSH 4 mg Q8H PRN Administration NAUSEA AND/OR VOMITING Ranitidine HCl 300 mg 06/03/17 18:30 06/11/17 17:20 Zantac - PO 300 mg DAILY@1800 ANNA Administration Tiotropium [place] 1 puff 06/03/17 10:00 06/12/17 09:03 Spiriva - IH Not Given DAILY ANNA Tramadol HCl 50 mg 06/10/17 20:58 06/12/17 09:02 Ultram - PO 50 mg Q8H PRN Administration PAIN 1. CKD with acute component 2. AAA 3. lung cancer 4. HTN 5. a-fib 6. chol 7. hx hydropneumothorax 8. GI bleed 9. sepsis 10. leukocytosis 11. COLE 12. abdominal pain 13. hypoxia/erpiratory failure requiring bipap Plan - renal function is worsening - cont fluids - send stool for c.diff - discussed with ICU team - discussed with surgery - repeat labs in am - cont bipap - pulm follow up - monitor BP - cont ICU care - reviewed chart - will follow Dr Shearer
[2017-06-12] MEDS: RANITIDINE HCL 150 MG TABLET (FP) PO SCH (17:34)
[2017-06-12] MEDS ORDERED: LORazepam 2 MG/ML SDV VIAL ONE (20:42)
[2017-06-12] MEDS: LORazepam 2 MG/ML SDV VIAL IVPUSH PRN (20:50)
--- NOTE | 2017-06-12 20:52 | PN ---
Progress Note (short form) - Note Progress Note: In follow-up to my earlier consult this patient with new onset left abdominal pain s/p evar for AAA 10 days ago had a non-contrast ct of abdomen and pelvis shows no clear sign of bowel/ colonic ischemia. however, there are some findings that may be suggestive of type 2 endoleak? continue supportive care. would recommend contact dr. radha paul vascular surgeon. Thank you for the opportunity to participate in the care of this patient. Problem List - Problems (1) CHF (congestive heart failure) Code(s): I50.9 - HEART FAILURE, UNSPECIFIED (2) COPD exacerbation Code(s): J44.1 - CHRONIC OBSTRUCTIVE PULMONARY DISEASE W (ACUTE) EXACERBATION (3) History of endovascular stent graft for abdominal aortic aneurysm (AAA) Code(s): Z95.828 - PRESENCE OF OTHER VASCULAR IMPLANTS AND GRAFTS (4) Melena Code(s): K92.1 - MELENA (5) Atrial fibrillation Code(s): I48.91 - UNSPECIFIED ATRIAL FIBRILLATION Qualifiers: Atrial fibrillation type: persistent Qualified Code(s): I48.1 - Persistent atrial fibrillation (6) Lung malignancy Code(s): C34.90 - MALIGNANT NEOPLASM OF UNSP PART OF UNSP BRONCHUS OR LUNG Qualifiers: Laterality: left
[2017-06-12 22:03] LABS: HEMOGLOBIN 7.8 GM/dL (10.7-15.3); MCH 29.8 pg (25.7-33.7); MCHC 32.7 g/dl (32.0-36.0); MEAN CELL VOLUME 91.3 fl (80-96); MEAN PLT VOLUME 7.9 fl (7.5-11.1); PLATELET COUNT 224 K/MM3 (134-434); RBC 2.63 M/mm3 (3.60-5.2); RDW 15.1 % (11.6-15.6); WHITE BLOOD COUNT 21.9 K/mm3 (4.0-10.0)
[2017-06-13] MEDS: methylPREDNISolone NA SUCC 40 MG/1 ML VIAL IVPUSH SCH ×3 (01:13→17:18)
[2017-06-13 06:22] LABS: HEMATOCRIT 28.5 % (32.4-45.2); HEMOGLOBIN 9.4 GM/dL (10.7-15.3); MCH 30.1 pg (25.7-33.7); MCHC 32.9 g/dl (32.0-36.0); MEAN CELL VOLUME 91.3 fl (80-96); MEAN PLT VOLUME 8.2 fl (7.5-11.1); PLATELET COUNT 287 K/MM3 (134-434); RBC 3.12 M/mm3 (3.60-5.2); RDW 15.5 % (11.6-15.6)
[2017-06-13] MEDS: INSULIN SLIDING SCALE (NOVOLOG) 1 VIAL SQ SCH ×4 (06:25→21:26)
[2017-06-13] MEDS: DOCUSATE SODIUM 100 MG CAPSULE (FP) PO SCH ×3 (06:25→21:14)
[2017-06-13 06:40] LABS: SERUM IRON SATURATION 14 % (15-55); TOTAL IRON BINDING CAPACITY 230 ug/dL (250-450); UIBC 198 ug/dL (118-369)
[2017-06-13] MEDS: ALBUTEROL SO4 0.083% IH SOL 2.5 MG/3 ML VIAL.NEB. NEB SCH ×4 (06:50→23:40)
[2017-06-13 06:56] LABS: ALBUMIN 2.4 g/dl (3.4-5.0); ALK PHOS 66 U/L (45-117); ANION GAP 10 (8-16); BILIRUBIN,DIRECT < 0.2 mg/dL (0.0-0.2); BILIRUBIN,TOTAL 0.3 mg/dL (0.2-1.0); CALCIUM 7.1 mg/dL (8.5-10.1); CHLORIDE 95 mmol/L (98-107); CO2 27 mmol/L (21-32); CREATININE 3.4 mg/dL (0.55-1.02); GLUCOSE,RANDOM 202 mg/dL (74-106); PHOSPHOROUS 7.4 mg/dL (2.5-4.9); POTASSIUM 4.8 mmol/L (3.5-5.1); SGOT/AST 13 U/L (15-37); SGPT/ALT 37 U/L (12-78); SODIUM 132 mmol/L (136-145); TOT PROT 5.8 g/dl (6.4-8.2)
[2017-06-13 07:00] LABS: BLOOD UREA NITROGEN 114 mg/dL (7-18); MAGNESIUM 8.2 mg/dL (1.8-2.4)
[2017-06-13] MEDS ORDERED: LORazepam 2 MG/ML SDV VIAL ONE (07:43)
[2017-06-13] MEDS: LORazepam 2 MG/ML SDV VIAL IVPUSH PRN (07:46)
--- NOTE | 2017-06-13 08:05 | PN ---
Progress Note (short form) - Note Progress Note: Pulm/CCM Pt seen and examined in ICU 24Hr: -WBC downtrending on flagyl -had semiformed bm -still with abd pain -stable hemodynamics, resp status improved - Cr stable, BUN rising slightly, output unclear as no fernández but is voiding -CTAP performed, awaiting final read, but per surg no obvious signs of bowel ischemia -CXr improved, still with L sided effusion/opacity -asking to eat Vital Signs Temp 98.9 F 06/13/17 06:00 Pulse 76 06/13/17 06:00 Resp 23 06/13/17 06:00 BP 130/58 06/13/17 06:00 Pulse Ox 100 06/13/17 07:03 Intake & Output 06/12/17 06/12/17 06/13/17 11:59 23:59 11:59 Intake Total 500 1500 900 Balance 500 1500 900 Weight 72.665 kg Intake: IV 500 900 900 ivf NS @ 75cc/hr 500 900 900 IVPB 100 Oral 500 Other: Voiding Method Incontinent Incontinent # Unmeasured Voids Void 1 2 Bowel Movement Yes Yes # Bowel Movements 1 1 Active Medications Acetaminophen (Tylenol -) 650 mg PO Q6H PRN PRN Reason: FEVER OR PAIN Last Admin: 06/10/17 23:15 Dose: 650 mg Acetaminophen (Ofirmev Injection -) 1,000 mg IVPB Q6H PRN PRN Reason: FEVER OR PAIN Last Admin: 06/03/17 05:02 Dose: 1,000 mg Albuterol Sulfate (Ventolin 0.083% Nebulizer Soln -) 1 amp NEB Q1H PRN PRN Reason: SHORT OF BREATH/WHEEZING Last Admin: 06/10/17 20:04 Dose: 1 amp Albuterol Sulfate (Ventolin 0.083% Nebulizer Soln -) 1 amp NEB QIDR ANNA Last Admin: 06/13/17 06:50 Dose: 1 amp Diltiazem HCl (Cardizem Injection -) 30 mg IVPUSH Q6H PRN PRN Reason: TACHYCARDIA Last Admin: 06/02/17 19:20 Dose: 30 mg Diltiazem HCl (Cardizem Cd -) 180 mg PO DAILY [facility] Last Admin: 06/12/17 09:02 Dose: 180 mg Docusate Sodium (Colace -) 100 mg PO TID ANNA Last Admin: 06/13/17 06:25 Dose: 100 mg Fluconazole (Diflucan 100 Mg/Ns Premixed Ivpb -) 50 mls @ 50 mls/hr IVPB DAILY [facility] Last Admin: 06/12/17 09:08 Dose: 50 mls/hr Sodium Chloride (Normal Saline -) 1,000 mls @ 75 mls/hr IV ASDIR [facility] Last Admin: 06/12/17 14:00 Dose: 75 mls/hr Meropenem (Merrem (Restricted To Id) -) 500 mg in 10 mls @ 120 mls/hr IVPUSH BID [facility] Last Admin: 06/12/17 23:31 Dose: 120 mls/hr Metronidazole (Flagyl 500mg Premixed Ivpb -) 500 mg in 100 mls @ 100 mls/hr IVPB BID [facility] Last Admin: 06/12/17 14:29 Dose: 100 mls/hr Insulin Aspart (Novolog Vial Sliding Scale -) 1 vial SQ ACHS [facility] PRN Reason: Protocol Last Admin: 06/13/17 06:25 Dose: Not Given Lorazepam (Ativan Injection -) 0.5 mg IVPUSH Q6H PRN PRN Reason: ANXIETY Last Admin: 06/13/17 07:46 Dose: 0.5 mg Methylprednisolone Sodium Succinate (Solu-Medrol -) 40 mg IVPUSH Q8H-IV [facility] Last Admin: 06/13/17 01:13 Dose: 40 mg Nitroglycerin (Nitro-Bid 2% Paste -) 1 inch TD QID [facility] Last Admin: 06/12/17 22:02 Dose: 1 inch Ondansetron HCl (Zofran Injection) 4 mg IVPUSH Q8H PRN PRN Reason: NAUSEA AND/OR VOMITING Last Admin: 06/08/17 19:50 Dose: 4 mg Ranitidine HCl (Zantac -) 300 mg PO DAILY@1800 [facility] Last Admin: 06/12/17 17:34 Dose: 300 mg Tiotropium [place] (Spiriva -) 1 puff IH DAILY [facility] Last Admin: 06/12/17 09:03 Dose: Not Given Tramadol HCl (Ultram -) 50 mg PO Q8H PRN PRN Reason: PAIN Last Admin: 06/12/17 09:02 Dose: 50 mg CBCD WBC 26.0 K/mm3 (4.0-10.0) H 06/13/17 06:00 RBC 3.12 M/mm3 (3.60-5.2) L 06/13/17 06:00 Hgb 9.4 GM/dL (10.7-15.3) L D 06/13/17 06:00 Hct 28.5 % (32.4-45.2) L D 06/13/17 06:00 MCV 91.3 fl (80-96) 06/13/17 06:00 MCHC 32.9 g/dl (32.0-36.0) 06/13/17 06:00 RDW 15.5 % (11.6-15.6) 06/13/17 06:00 Plt Count 287 K/MM3 (134-434) D 06/13/17 06:00 MPV 8.2 fl (7.5-11.1) 06/13/17 06:00 CMP Sodium 132 mmol/L (136-145) L 06/13/17 06:00 Potassium 4.8 mmol/L (3.5-5.1) 06/13/17 06:00 Chloride 95 mmol/L (98-107) L 06/13/17 06:00 Carbon Dioxide 27 mmol/L (21-32) 06/13/17 06:00 Anion Gap 10 (8-16) 06/13/17 06:00 BUN 114 mg/dL (7-18) H* 06/13/17 06:00 Creatinine 3.4 mg/dL (0.55-1.02) H 06/13/17 06:00 Creat Clearance w eGFR 13.63 (>60) 06/12/17 05:05 Calcium 7.1 mg/dL (8.5-10.1) L 06/13/17 06:00 Total Bilirubin 0.3 mg/dL (0.2-1.0) 06/13/17 06:00 AST 13 U/L (15-37) L 06/13/17 06:00 ALT 37 U/L (12-78) 06/13/17 06:00 Alkaline Phosphatase 66 U/L (45-117) 06/13/17 06:00 Total Protein 5.8 g/dl (6.4-8.2) L 06/13/17 06:00 Albumin 2.4 g/dl (3.4-5.0) L 06/13/17 06:00 CTAP; reviewed, no siginificant dilitation, CXR 06/12 reviewed A/P: Respiratory insufficiency AAA s/p EVAR Lung Ca s/p LLL lobectomy COPD Atrial Fibrillation Acute on CKD 77 yo woman stage I lung ca, s/p resection in 02/2017. CKD Stage IV, AAA now s/p and EVAR, c/c/b UGIB: AVM, gastric erosions now with increased WOB on NIPPV c/f aspiration pna vs abd perf/ischemic bowel vs c. diff (abd pain and leukocytosis ) - cont ABX per ID, will add flagyl for c. diff coverage, reattempt to send C.dif toxin - f/u CTAP final read - Surgery following, ? advance diet today - continue steroids, would start taper - BIPAP as needed for SOB, venti as needed - O2 for sat >90% - inhaled bronchodilators - incentive spirometry - renal dose medications - Renal following, Cr stabilizing but BUN still rising - rate control - continue anticoagulation - DVT prophylaxis Eren Dominguez ACNP [id number]
--- NOTE | 2017-06-13 08:36 | PN ---
Progress Note, Physician History of Present Illness: C/O LLQ abdominal pain No vomiting; + melanotic BM per nurse tachypneic at rest on ventimask Afebrile WBC remains elevated BC no growth - Current Medication List Current Medications: Active Medications Acetaminophen (Tylenol -) 650 mg PO Q6H PRN PRN Reason: FEVER OR PAIN Last Admin: 06/10/17 23:15 Dose: 650 mg Acetaminophen (Ofirmev Injection -) 1,000 mg IVPB Q6H PRN PRN Reason: FEVER OR PAIN Last Admin: 06/03/17 05:02 Dose: 1,000 mg Albuterol Sulfate (Ventolin 0.083% Nebulizer Soln -) 1 amp NEB Q1H PRN PRN Reason: SHORT OF BREATH/WHEEZING Last Admin: 06/10/17 20:04 Dose: 1 amp Albuterol Sulfate (Ventolin 0.083% Nebulizer Soln -) 1 amp NEB QIDR ANNA Last Admin: 06/13/17 06:50 Dose: 1 amp Diltiazem HCl (Cardizem Injection -) 30 mg IVPUSH Q6H PRN PRN Reason: TACHYCARDIA Last Admin: 06/02/17 19:20 Dose: 30 mg Diltiazem HCl (Cardizem Cd -) 180 mg PO DAILY [facility] Last Admin: 06/12/17 09:02 Dose: 180 mg Docusate Sodium (Colace -) 100 mg PO TID [facility] Last Admin: 06/13/17 06:25 Dose: 100 mg Fluconazole (Diflucan 100 Mg/Ns Premixed Ivpb -) 50 mls @ 50 mls/hr IVPB DAILY [facility] Last Admin: 06/12/17 09:08 Dose: 50 mls/hr Sodium Chloride (Normal Saline -) 1,000 mls @ 75 mls/hr IV ASDIR [facility] Last Admin: 06/12/17 14:00 Dose: 75 mls/hr Meropenem (Merrem (Restricted To Id) -) 500 mg in 10 mls @ 120 mls/hr IVPUSH BID [facility] Last Admin: 06/12/17 23:31 Dose: 120 mls/hr Metronidazole (Flagyl 500mg Premixed Ivpb -) 500 mg in 100 mls @ 100 mls/hr IVPB BID [facility] Last Admin: 06/12/17 14:29 Dose: 100 mls/hr Insulin Aspart (Novolog Vial Sliding Scale -) 1 vial SQ ACHS [facility] PRN Reason: Protocol Last Admin: 06/13/17 06:25 Dose: Not Given Lorazepam (Ativan Injection -) 0.5 mg IVPUSH Q6H PRN PRN Reason: ANXIETY Last Admin: 06/13/17 07:46 Dose: 0.5 mg Methylprednisolone Sodium Succinate (Solu-Medrol -) 40 mg IVPUSH Q8H-IV [facility] Last Admin: 06/13/17 01:13 Dose: 40 mg Nitroglycerin (Nitro-Bid 2% Paste -) 1 inch TD QID [facility] Last Admin: 06/12/17 22:02 Dose: 1 inch Ondansetron HCl (Zofran Injection) 4 mg IVPUSH Q8H PRN PRN Reason: NAUSEA AND/OR VOMITING Last Admin: 06/08/17 19:50 Dose: 4 mg Ranitidine HCl (Zantac -) 300 mg PO DAILY@1800 [facility] Last Admin: 06/12/17 17:34 Dose: 300 mg Tiotropium [place] (Spiriva -) 1 puff IH DAILY [facility] Last Admin: 06/12/17 09:03 Dose: Not Given Tramadol HCl (Ultram -) 50 mg PO Q8H PRN PRN Reason: PAIN Last Admin: 06/12/17 09:02 Dose: 50 mg - Objective Vital Signs: Vital Signs Temperature 98.9 F 06/13/17 06:00 Pulse Rate 76 06/13/17 06:00 Respiratory Rate 23 06/13/17 06:00 Blood Pressure 130/58 06/13/17 06:00 O2 Sat by Pulse Oximetry (%) 100 06/13/17 07:03 Constitutional: Yes: No Distress Eyes: Yes: Conjunctiva Clear Cardiovascular: Yes: Regular Rate and Rhythm, S1, S2 Respiratory: Yes: CTA Bilaterally Gastrointestinal: Yes: Normal Bowel Sounds, Soft, Abdomen, Obese, Tenderness, Other (Abdomen distended, +BS, + L sided tenderness) Edema: No Labs: CBC, BMP 06/13/17 06:00 06/13/17 06:00 INR, PTT INR 0.89 (0.82-1.09) 06/12/17 11:15 Assessment/Plan Abdominal pain syndrome CT abdo/ pelvis done, reading pending Exacerbation COPD Hx Lung ca s/p LLL lobectomy Leukocytosis Acute on chronic renal failure AAA s/p EVAR Await c/s Empiric meropenem/ flagyl/ fluconazole Surgical follow up
[2017-06-13] MEDS ORDERED: PT OWN MED DRAWER 7, Y5N ONE ×2 (08:38→09:27)
[2017-06-13] MEDS: TIOTROPIUM BROMIDE 18 MCG/INH (DEVICE W/ 5 CAPSULES) IH SCH (09:25)
[2017-06-13] MEDS: NITROGLYCERIN 2% OINTMENT - 1GM PACKET TD SCH ×4 (09:28→21:14)
[2017-06-13] MEDS: MEROPENEM 500 MG PUSH 500 MG/10 ML DISP.SYRIN IVPUSH SCH ×2 (10:08→21:14)
[2017-06-13] MEDS: FLUCONAZOLE 100 MG/NS 50 ML IVPB SCH (10:08)
--- NOTE | 2017-06-13 10:34 | PN ---
Progress Note, Physician History of Present Illness: C/O SOB NO CP c/o abdominal pain - Current Medication List Current Medications: Active Medications Acetaminophen (Tylenol -) 650 mg PO Q6H PRN PRN Reason: FEVER OR PAIN Last Admin: 06/10/17 23:15 Dose: 650 mg Acetaminophen (Ofirmev Injection -) 1,000 mg IVPB Q6H PRN PRN Reason: FEVER OR PAIN Last Admin: 06/03/17 05:02 Dose: 1,000 mg Albuterol Sulfate (Ventolin 0.083% Nebulizer Soln -) 1 amp NEB Q1H PRN PRN Reason: SHORT OF BREATH/WHEEZING Last Admin: 06/10/17 20:04 Dose: 1 amp Albuterol Sulfate (Ventolin 0.083% Nebulizer Soln -) 1 amp NEB QIDR ANNA Last Admin: 06/13/17 06:50 Dose: 1 amp Diltiazem HCl (Cardizem Injection -) 30 mg IVPUSH Q6H PRN PRN Reason: TACHYCARDIA Last Admin: 06/02/17 19:20 Dose: 30 mg Diltiazem HCl (Cardizem Cd -) 180 mg PO DAILY [facility] Last Admin: 06/13/17 09:24 Dose: 180 mg Docusate Sodium (Colace -) 100 mg PO TID [facility] Last Admin: 06/13/17 06:25 Dose: 100 mg Fluconazole (Diflucan 100 Mg/Ns Premixed Ivpb -) 50 mls @ 50 mls/hr IVPB DAILY [facility] Last Admin: 06/13/17 10:08 Dose: 50 mls/hr Sodium Chloride (Normal Saline -) 1,000 mls @ 75 mls/hr IV ASDIR [facility] Last Admin: 06/12/17 14:00 Dose: 75 mls/hr Meropenem (Merrem (Restricted To Id) -) 500 mg in 10 mls @ 120 mls/hr IVPUSH BID [facility] Last Admin: 06/13/17 10:08 Dose: 120 mls/hr Metronidazole (Flagyl 500mg Premixed Ivpb -) 500 mg in 100 mls @ 100 mls/hr IVPB BID [facility] Last Admin: 06/13/17 09:28 Dose: 100 mls/hr Insulin Aspart (Novolog Vial Sliding Scale -) 1 vial SQ ACHS [facility] PRN Reason: Protocol Last Admin: 06/13/17 06:25 Dose: Not Given Lorazepam (Ativan Injection -) 0.5 mg IVPUSH Q6H PRN PRN Reason: ANXIETY Last Admin: 06/13/17 07:46 Dose: 0.5 mg Methylprednisolone Sodium Succinate (Solu-Medrol -) 40 mg IVPUSH Q8H-IV [facility] Last Admin: 06/13/17 09:28 Dose: 40 mg Nitroglycerin (Nitro-Bid 2% Paste -) 1 inch TD QID [facility] Last Admin: 06/13/17 09:28 Dose: 1 inch Ondansetron HCl (Zofran Injection) 4 mg IVPUSH Q8H PRN PRN Reason: NAUSEA AND/OR VOMITING Last Admin: 06/08/17 19:50 Dose: 4 mg Ranitidine HCl (Zantac -) 300 mg PO DAILY@1800 [facility] Last Admin: 06/12/17 17:34 Dose: 300 mg Tiotropium [place] (Spiriva -) 1 puff IH DAILY [facility] Last Admin: 06/13/17 09:25 Dose: Not Given Tramadol HCl (Ultram -) 50 mg PO Q8H PRN PRN Reason: PAIN Last Admin: 06/12/17 09:02 Dose: 50 mg - Objective Vital Signs: Vital Signs Temperature 97.7 F 06/13/17 10:00 Pulse Rate 85 06/13/17 10:24 Respiratory Rate 16 06/13/17 10:00 Blood Pressure 125/78 06/13/17 10:00 O2 Sat by Pulse Oximetry (%) 100 06/13/17 10:24 Cardiovascular: Yes: S1, S2 Respiratory: Yes: Other (on venti-mask). No: Wheezes Gastrointestinal: Yes: Normal Bowel Sounds, Soft, Tenderness Labs: CBC, BMP 06/13/17 06:00 06/13/17 06:00 INR, PTT INR 0.89 (0.82-1.09) 06/12/17 11:15 Problem List - Problems (1) CHF (congestive heart failure) Assessment/Plan: FOLLOW UP CXR MONITOR RENAL FUNCTION Code(s): I50.9 - HEART FAILURE, UNSPECIFIED (2) Pneumonia Assessment/Plan: REPEAT CXR ID F/U--ON ABX Code(s): J18.9 - PNEUMONIA, UNSPECIFIED ORGANISM (3) COPD exacerbation Assessment/Plan: ON STEROIDS NEBS QID ICU MONITORING Code(s): J44.1 - CHRONIC OBSTRUCTIVE PULMONARY DISEASE W (ACUTE) EXACERBATION (4) History of endovascular stent graft for abdominal aortic aneurysm (AAA) Assessment/Plan: VASCULAR F/U Code(s): Z95.828 - PRESENCE OF OTHER VASCULAR IMPLANTS AND GRAFTS (5) S/P lobectomy of lung Code(s): Z90.2 - ACQUIRED ABSENCE OF LUNG [PART OF] (6) Atrial fibrillation Assessment/Plan: ON HEPARIN Code(s): I48.91 - UNSPECIFIED ATRIAL FIBRILLATION Qualifiers: Atrial fibrillation type: persistent Qualified Code(s): I48.1 - Persistent atrial fibrillation (7) Chronic renal disease Assessment/Plan: MONITOR RENAL FOLLOW UP Code(s): N18.9 - CHRONIC KIDNEY DISEASE, UNSPECIFIED Qualifiers: Chronic kidney disease stage: stage 4 (severe) Qualified Code(s): N18.4 - Chronic kidney disease, stage 4 (severe) (8) Abdominal pain Assessment/Plan: AWAIT CT SCAN Code(s): R10.9 - UNSPECIFIED ABDOMINAL PAIN
--- NOTE | 2017-06-13 12:17 | PN ---
Progress Note, Physician Chief Complaint: abdominal pain History of Present Illness: 77 yo female PMH CKD, HTN, COPD and lung cancer s/p lobectomy ~3months ago, a- fib on Eliquis who presents to ED with c/o weakness, n/v and dark stools. She is found to have a AAA that has increased in size (5.4 to 5.8cm) during her hospitalization. She is now s/p and EVAR of the AAA on 05/31. She developed gradual worsening left abdominal pain and increased work of breathing over the past 2 days. Overnight - Current Medication List Current Medications: Active Medications Acetaminophen (Tylenol -) 650 mg PO Q6H PRN PRN Reason: FEVER OR PAIN Last Admin: 06/10/17 23:15 Dose: 650 mg Acetaminophen (Ofirmev Injection -) 1,000 mg IVPB Q6H PRN PRN Reason: FEVER OR PAIN Last Admin: 06/03/17 05:02 Dose: 1,000 mg Albuterol Sulfate (Ventolin 0.083% Nebulizer Soln -) 1 amp NEB Q1H PRN PRN Reason: SHORT OF BREATH/WHEEZING Last Admin: 06/10/17 20:04 Dose: 1 amp Albuterol Sulfate (Ventolin 0.083% Nebulizer Soln -) 1 amp NEB QIDR ANNA Last Admin: 06/13/17 06:50 Dose: 1 amp Diltiazem HCl (Cardizem Injection -) 30 mg IVPUSH Q6H PRN PRN Reason: TACHYCARDIA Last Admin: 06/02/17 19:20 Dose: 30 mg Diltiazem HCl (Cardizem Cd -) 180 mg PO DAILY [facility] Last Admin: 06/13/17 09:24 Dose: 180 mg Docusate Sodium (Colace -) 100 mg PO TID [facility] Last Admin: 06/13/17 06:25 Dose: 100 mg Fluconazole (Diflucan 100 Mg/Ns Premixed Ivpb -) 50 mls @ 50 mls/hr IVPB DAILY [facility] Last Admin: 06/13/17 10:08 Dose: 50 mls/hr Sodium Chloride (Normal Saline -) 1,000 mls @ 75 mls/hr IV ASDIR [facility] Last Admin: 06/12/17 14:00 Dose: 75 mls/hr Meropenem (Merrem (Restricted To Id) -) 500 mg in 10 mls @ 120 mls/hr IVPUSH BID [facility] Last Admin: 06/13/17 10:08 Dose: 120 mls/hr Metronidazole (Flagyl 500mg Premixed Ivpb -) 500 mg in 100 mls @ 100 mls/hr IVPB BID [facility] Last Admin: 06/13/17 09:28 Dose: 100 mls/hr Vancomycin HCl 1,000 mg/ (Dextrose) 250 mls @ 166.667 mls/hr IVPB ONCE ONE Stop: 06/13/17 16:29 Insulin Aspart (Novolog Vial Sliding Scale -) 1 vial SQ ACHS [facility] PRN Reason: Protocol Last Admin: 06/13/17 10:51 Dose: Not Given Lorazepam (Ativan Injection -) 0.5 mg IVPUSH Q6H PRN PRN Reason: ANXIETY Last Admin: 06/13/17 07:46 Dose: 0.5 mg Methylprednisolone Sodium Succinate (Solu-Medrol -) 40 mg IVPUSH Q8H-IV [facility] Stop: 06/14/17 02:00 Last Admin: 06/13/17 09:28 Dose: 40 mg Methylprednisolone Sodium Succinate (Solu-Medrol -) 20 mg IVPUSH DAILY [facility] Nitroglycerin (Nitro-Bid 2% Paste -) 1 inch TD QID [facility] Last Admin: 06/13/17 09:28 Dose: 1 inch Ondansetron HCl (Zofran Injection) 4 mg IVPUSH Q8H PRN PRN Reason: NAUSEA AND/OR VOMITING Last Admin: 06/08/17 19:50 Dose: 4 mg Ranitidine HCl (Zantac -) 300 mg PO DAILY@1800 [facility] Last Admin: 06/12/17 17:34 Dose: 300 mg Tiotropium [place] (Spiriva -) 1 puff IH DAILY [facility] Last Admin: 06/13/17 09:25 Dose: Not Given Tramadol HCl (Ultram -) 50 mg PO Q8H PRN PRN Reason: PAIN Last Admin: 06/12/17 09:02 Dose: 50 mg - Objective Vital Signs: Vital Signs Temperature 97.7 F 06/13/17 10:00 Pulse Rate 85 06/13/17 10:24 Respiratory Rate 16 06/13/17 10:00 Blood Pressure 125/78 06/13/17 10:00 O2 Sat by Pulse Oximetry (%) 100 06/13/17 10:24 Vital Signs Period Temp Pulse Resp BP Sys/Sellers Pulse Ox Last 24 Hr 97.7 F-98.9 F 69-88 14-23 99-132/53-78 99-100 Intake & Output 06/12/17 06/13/17 06/13/17 23:59 07:59 15:59 Intake Total 300 900 Balance 300 900 Weight 160 lb 3.2 oz Intake: IV 300 900 ivf NS @ 75cc/hr 300 900 Other: Voiding Method Incontinent Incontinent # Unmeasured Voids Void 1 2 Bowel Movement Yes # Bowel Movements 1 Constitutional: Yes: Well Nourished, No Distress, Calm Eyes: Yes: Conjunctiva Clear, EOM Intact HENT: Yes: Atraumatic, Normocephalic Neck: Yes: Supple, Trachea Midline Cardiovascular: Yes: Regular Rate and Rhythm, S1, S2 Respiratory: Yes: Regular, CTA Bilaterally Gastrointestinal: Yes: Normal Bowel Sounds, Soft, Tenderness. No: Tenderness, Epigastrium, Tenderness, Rebound, Vomiting (tender without rebound or guarding) Genitourinary: No: CVA Tenderness - Left, CVA Tenderness - Right Musculoskeletal: No: Muscle Pain, Muscle Weakness Edema: No Peripheral Pulses WNL: Yes Neurological: Yes: Alert, Oriented Psychiatric: Yes: Alert, Oriented Labs: CBC, BMP 06/13/17 06:00 06/13/17 06:00 INR, PTT INR 0.89 (0.82-1.09) 06/12/17 11:15 - ....Imaging Cat Scan: Report Reviewed, Image Reviewed (some bowel wall thickening ascending and sigmoid/ colitis) Problem List - Problems (1) Colitis Assessment/Plan: 77 yo female MMP with adominal pain infectious versus ischemic colitis is most likely, leukocytosis is decreasing NPO and IVF hydration empiric antiviotics continue to trend CBC BP support, avoid hypotrension Abdomninal xray to follow contrast will follow for serial abdominal exams vascular surgery follow-up This patient is critically ill in the ICU. Time spent reviewing chart, examining patient, talking with providers and/or family and documentation is 35 minutes Code(s): K52.9 - NONINFECTIVE GASTROENTERITIS AND COLITIS, UNSPECIFIED (2) CHF (congestive heart failure) Code(s): I50.9 - HEART FAILURE, UNSPECIFIED (3) COPD exacerbation Code(s): J44.1 - CHRONIC OBSTRUCTIVE PULMONARY DISEASE W (ACUTE) EXACERBATION (4) History of endovascular stent graft for abdominal aortic aneurysm (AAA) Code(s): Z95.828 - PRESENCE OF OTHER VASCULAR IMPLANTS AND GRAFTS (5) Melena Code(s): K92.1 - MELENA (6) Atrial fibrillation Code(s): I48.91 - UNSPECIFIED ATRIAL FIBRILLATION Qualifiers: Atrial fibrillation type: persistent Qualified Code(s): I48.1 - Persistent atrial fibrillation (7) Lung malignancy Code(s): C34.90 - MALIGNANT NEOPLASM OF UNSP PART OF UNSP BRONCHUS OR LUNG Qualifiers: Laterality: left
[2017-06-13] MEDS ORDERED: VANCOMYCIN 1,000 MG in DEXTROSE 5%-WATER - 250 ML IVPB ONE (15:00)
--- NOTE | 2017-06-13 15:01 | PN ---
Progress Note, Physician History of Present Illness: Pt seen and examined at bedside. She is awake but complains of abdominal pain. - Current Medication List Current Medications: Active Medications Acetaminophen (Tylenol -) 650 mg PO Q6H PRN PRN Reason: FEVER OR PAIN Last Admin: 06/10/17 23:15 Dose: 650 mg Acetaminophen (Ofirmev Injection -) 1,000 mg IVPB Q6H PRN PRN Reason: FEVER OR PAIN Last Admin: 06/03/17 05:02 Dose: 1,000 mg Albuterol Sulfate (Ventolin 0.083% Nebulizer Soln -) 1 amp NEB Q1H PRN PRN Reason: SHORT OF BREATH/WHEEZING Last Admin: 06/10/17 20:04 Dose: 1 amp Albuterol Sulfate (Ventolin 0.083% Nebulizer Soln -) 1 amp NEB QIDR ANNA Last Admin: 06/13/17 06:50 Dose: 1 amp Diltiazem HCl (Cardizem Injection -) 30 mg IVPUSH Q6H PRN PRN Reason: TACHYCARDIA Last Admin: 06/02/17 19:20 Dose: 30 mg Diltiazem HCl (Cardizem Cd -) 180 mg PO DAILY [facility] Last Admin: 06/13/17 09:24 Dose: 180 mg Docusate Sodium (Colace -) 100 mg PO TID [facility] Last Admin: 06/13/17 13:48 Dose: 100 mg Fluconazole (Diflucan 100 Mg/Ns Premixed Ivpb -) 50 mls @ 50 mls/hr IVPB DAILY [facility] Last Admin: 06/13/17 10:08 Dose: 50 mls/hr Sodium Chloride (Normal Saline -) 1,000 mls @ 75 mls/hr IV ASDIR [facility] Last Admin: 06/12/17 14:00 Dose: 75 mls/hr Meropenem (Merrem (Restricted To Id) -) 500 mg in 10 mls @ 120 mls/hr IVPUSH BID [facility] Last Admin: 06/13/17 10:08 Dose: 120 mls/hr Metronidazole (Flagyl 500mg Premixed Ivpb -) 500 mg in 100 mls @ 100 mls/hr IVPB BID [facility] Last Admin: 06/13/17 09:28 Dose: 100 mls/hr Vancomycin HCl 1,000 mg/ (Dextrose) 250 mls @ 166.667 mls/hr IVPB ONCE ONE Stop: 06/13/17 16:29 Insulin Aspart (Novolog Vial Sliding Scale -) 1 vial SQ ACHS ANNA PRN Reason: Protocol Last Admin: 06/13/17 10:51 Dose: Not Given Lorazepam (Ativan Injection -) 0.5 mg IVPUSH Q6H PRN PRN Reason: ANXIETY Last Admin: 06/13/17 07:46 Dose: 0.5 mg Methylprednisolone Sodium Succinate (Solu-Medrol -) 40 mg IVPUSH Q8H-IV [facility] Stop: 06/14/17 02:00 Last Admin: 06/13/17 09:28 Dose: 40 mg Methylprednisolone Sodium Succinate (Solu-Medrol -) 20 mg IVPUSH DAILY [facility] Nitroglycerin (Nitro-Bid 2% Paste -) 1 inch TD QID [facility] Last Admin: 06/13/17 13:48 Dose: 1 inch Ondansetron HCl (Zofran Injection) 4 mg IVPUSH Q8H PRN PRN Reason: NAUSEA AND/OR VOMITING Last Admin: 06/08/17 19:50 Dose: 4 mg Ranitidine HCl (Zantac -) 300 mg PO DAILY@1800 [facility] Last Admin: 06/12/17 17:34 Dose: 300 mg Tiotropium [place] (Spiriva -) 1 puff IH DAILY [facility] Last Admin: 06/13/17 09:25 Dose: Not Given Tramadol HCl (Ultram -) 50 mg PO Q8H PRN PRN Reason: PAIN Last Admin: 06/12/17 09:02 Dose: 50 mg - Objective Vital Signs: Vital Signs Temperature 97.7 F 06/13/17 10:00 Pulse Rate 76 06/13/17 14:00 Respiratory Rate 23 06/13/17 14:00 Blood Pressure 123/65 06/13/17 14:00 O2 Sat by Pulse Oximetry (%) 99 06/13/17 14:58 Constitutional: Yes: Calm Eyes: Yes: Conjunctiva Clear HENT: Yes: Atraumatic Neck: Yes: Supple Cardiovascular: Yes: S1, S2 Respiratory: Yes: CTA Bilaterally Gastrointestinal: Yes: Soft, Tenderness Genitourinary: Yes: Incontinence Edema: No Neurological: Yes: Oriented Psychiatric: Yes: Oriented Labs: CBC, BMP 06/13/17 06:00 06/13/17 06:00 INR, PTT INR 0.89 (0.82-1.09) 06/12/17 11:15 - ....Imaging X-ray: Report Reviewed Problem List - Problems (1) Abdominal aortic aneurysm (AAA) Code(s): I71.4 - ABDOMINAL AORTIC ANEURYSM, WITHOUT RUPTURE Qualifiers: Presence of rupture: without rupture Qualified Code(s): I71.4 - Abdominal aortic aneurysm, without rupture (2) Stool guaiac positive Code(s): R19.5 - OTHER FECAL ABNORMALITIES (3) Atrial fibrillation Code(s): I48.91 - UNSPECIFIED ATRIAL FIBRILLATION Qualifiers: Atrial fibrillation type: persistent Qualified Code(s): I48.1 - Persistent atrial fibrillation (4) COPD (chronic obstructive pulmonary disease) Code(s): J44.9 - CHRONIC OBSTRUCTIVE PULMONARY DISEASE, UNSPECIFIED Qualifiers: Emphysema type: centrilobular (5) Chronic renal disease Code(s): N18.9 - CHRONIC KIDNEY DISEASE, UNSPECIFIED Qualifiers: Chronic kidney disease stage: stage 4 (severe) Qualified Code(s): N18.4 - Chronic kidney disease, stage 4 (severe) (6) Pneumothorax Code(s): J93.9 - PNEUMOTHORAX, UNSPECIFIED Qualifiers: Pneumothorax type: postprocedural Qualified Code(s): J95.811 - Postprocedural pneumothorax (7) Tobacco use Code(s): Z72.0 - TOBACCO USE Assessment/Plan Current Medications Generic Name Dose Route Start Last Admin Trade Name Freq PRN Reason Stop Dose Admin Acetaminophen 650 mg 06/02/17 19:24 06/10/17 23:15 Tylenol - PO 650 mg Q6H PRN Administration FEVER OR PAIN Acetaminophen 1,000 mg 06/02/17 22:51 06/03/17 05:02 Ofirmev Injection - IVPB 1,000 mg Q6H PRN Administration FEVER OR PAIN Albuterol Sulfate 1 amp 06/10/17 10:22 06/10/17 20:04 Ventolin 0.083% Nebulizer Soln - NEB 1 amp Q1H PRN Administration SHORT OF BREATH/WHEEZING Albuterol Sulfate 1 amp 06/10/17 11:56 06/13/17 06:50 Ventolin 0.083% Nebulizer Soln - NEB 1 amp QIDR ANNA Administration Diltiazem HCl 30 mg 06/02/17 19:16 06/02/17 19:20 Cardizem Injection - IVPUSH 30 mg Q6H PRN Administration TACHYCARDIA Diltiazem HCl 180 mg 06/03/17 10:00 06/13/17 09:24 Cardizem Cd - PO 180 mg DAILY ANNA Administration Docusate Sodium 100 mg 06/02/17 22:00 06/13/17 13:48 Colace - PO 100 mg TID ANNA Administration Fluconazole 50 mls @ 50 mls/hr 06/09/17 19:15 06/13/17 10:08 Diflucan 100 Mg/Ns Premixed Ivpb - IVPB 50 mls/hr DAILY ANNA Administration Sodium Chloride 1,000 mls @ 75 mls/hr 06/10/17 15:57 06/12/17 14:00 Normal Saline - IV 75 mls/hr ASDIR ANNA Administration Meropenem 500 mg in 10 mls @ 120 mls/hr 06/11/17 12:15 06/13/17 10:08 Merrem (Restricted To Id) - IVPUSH 120 mls/hr BID ANNA Administration Metronidazole 500 mg in 100 mls @ 100 mls/hr 06/12/17 14:00 06/13/17 09:28 Flagyl 500mg Premixed Ivpb - IVPB 100 mls/hr BID ANNA Administration Vancomycin HCl 1,000 mg/ 250 mls @ 166.667 mls/hr 06/13/17 15:00 Dextrose IVPB 06/13/17 16:29 ONCE ONE Insulin Aspart 1 vial 06/10/17 16:30 06/13/17 10:51 Novolog Vial Sliding Scale - SQ Not Given ACHS ANNA Protocol Lorazepam 0.5 mg 06/12/17 20:38 06/13/17 07:46 Ativan Injection - IVPUSH 0.5 mg Q6H PRN Administration ANXIETY Methylprednisolone Sodium Succinate 40 mg 06/10/17 18:00 06/13/17 09:28 Solu-Medrol - IVPUSH 06/14/17 02:00 40 mg Q8H-IV ANNA Administration Methylprednisolone Sodium Succinate 20 mg 06/14/17 10:00 Solu-Medrol - IVPUSH DAILY ANNA Nitroglycerin 1 inch 06/11/17 10:00 06/13/17 13:48 Nitro-Bid 2% Paste - TD 1 inch QID ANNA Administration Ondansetron HCl 4 mg 06/08/17 19:34 06/08/17 19:50 Zofran Injection IVPUSH 4 mg Q8H PRN Administration NAUSEA AND/OR VOMITING Ranitidine HCl 300 mg 06/03/17 18:30 06/12/17 17:34 Zantac - PO 300 mg DAILY@1800 ANNA Administration Tiotropium [place] 1 puff 06/03/17 10:00 06/13/17 09:25 Spiriva - IH Not Given DAILY ANNA Tramadol HCl 50 mg 06/10/17 20:58 06/12/17 09:02 Ultram - PO 50 mg Q8H PRN Administration PAIN 1. CKD with acute component 2. AAA 3. lung cancer 4. HTN 5. a-fib 6. chol 7. hx hydropneumothorax 8. GI bleed 9. sepsis 10. leukocytosis 11. COLE 12. abdominal pain 13. hypoxia/erpiratory failure requiring bipap Plan - cont with fluids - mag level is improving - creatinine is improving - avoid all laxatives/antacids with magnesium - discussed with surgery - repeat labs in am - cont bipap - pulm follow up - monitor BP - cont ICU care - will follow Dr Shearer
[2017-06-13] MEDS ORDERED: SODIUM CHLORIDE 1,000 ML IV SCH (15:02)
[2017-06-13] MEDS ORDERED: LIDOCAINE HCL 1%, 10 MG/ML (20ML VIAL) ONE (15:19)
--- NOTE | 2017-06-13 15:54 | PROC ---
Central Line Insertion Indication: Other (HD) Risks and Benefits Explained: Yes Consent on Chart: Yes Central Line: Dialysis Cath, Tri Lumen Anesthesia: 1% Lidocaine Sterile Technique: Yes Ultrasound Guided Assistance: Yes Position: Right Internal Jugular Post Insertion: Yes: Bilateral Breath Sounds, Chest X-Ray Ordered Sterile Dressing Applied: Yes Remarks: Tolerated Well. Cxr confirmed position.
[2017-06-13] MEDS ORDERED: CALCIUM GLUCONATE 10% - 1,000 MG/10 ML VIAL IVPUSH ONE (16:00)
[2017-06-13] MEDS: RANITIDINE HCL 150 MG TABLET (FP) PO SCH (17:13)
[2017-06-13] MEDS: QUEtiapine FUMARATE 25 MG TABLET (FP) PO SCH (21:14)
[2017-06-13] MEDS: SODIUM CHLORIDE 1,000 ML IV SCH (21:14)
--- NOTE | 2017-06-13 22:21 | PN ---
Progress Note (short form) - Note Progress Note: Renal Follow Up Pt tolerated HD. Magnesium level is improved. Repeat mag level in am. Laboratory Tests 05/03/17 05/25/17 05/26/17 05:18 13:15 06:00 Creatinine 2.7 H 3.7 H D 3.1 H Magnesium 06/13/17 06/13/17 06/13/17 06:00 17:40 19:00 Creatinine Magnesium 8.2 H* 7.7 H* 4.4 H D 06/13/17 20:09 Creatinine Magnesium 3.9 H Problem List - Problems (1) Abdominal aortic aneurysm (AAA) Code(s): I71.4 - ABDOMINAL AORTIC ANEURYSM, WITHOUT RUPTURE Qualifiers: Presence of rupture: without rupture Qualified Code(s): I71.4 - Abdominal aortic aneurysm, without rupture (2) Stool guaiac positive Code(s): R19.5 - OTHER FECAL ABNORMALITIES (3) Atrial fibrillation Code(s): I48.91 - UNSPECIFIED ATRIAL FIBRILLATION Qualifiers: Atrial fibrillation type: persistent Qualified Code(s): I48.1 - Persistent atrial fibrillation (4) COPD (chronic obstructive pulmonary disease) Code(s): J44.9 - CHRONIC OBSTRUCTIVE PULMONARY DISEASE, UNSPECIFIED Qualifiers: Emphysema type: centrilobular (5) Chronic renal disease Code(s): N18.9 - CHRONIC KIDNEY DISEASE, UNSPECIFIED Qualifiers: Chronic kidney disease stage: stage 4 (severe) Qualified Code(s): N18.4 - Chronic kidney disease, stage 4 (severe) (6) Pneumothorax Code(s): J93.9 - PNEUMOTHORAX, UNSPECIFIED Qualifiers: Pneumothorax type: postprocedural Qualified Code(s): J95.811 - Postprocedural pneumothorax (7) Tobacco use Code(s): Z72.0 - TOBACCO USE
[2017-06-14] MEDS: methylPREDNISolone NA SUCC 40 MG/1 ML VIAL IVPUSH SCH ×2 (03:00→10:21)
[2017-06-14] MEDS: ALBUTEROL SO4 0.083% IH SOL 2.5 MG/3 ML VIAL.NEB. NEB SCH ×3 (05:09→18:03)
[2017-06-14] MEDS: DOCUSATE SODIUM 100 MG CAPSULE (FP) PO SCH ×3 (06:26→21:23)
[2017-06-14] MEDS: INSULIN SLIDING SCALE (NOVOLOG) 1 VIAL SQ SCH ×4 (06:26→21:29)
[2017-06-14 06:38] LABS: HEMATOCRIT 27.6 % (32.4-45.2); MCH 29.7 pg (25.7-33.7); MCHC 32.5 g/dl (32.0-36.0); MEAN CELL VOLUME 91.5 fl (80-96); MEAN PLT VOLUME 8.1 fl (7.5-11.1); PLATELET COUNT 268 K/MM3 (134-434); RBC 3.02 M/mm3 (3.60-5.2); RDW 15.4 % (11.6-15.6); WHITE BLOOD COUNT 24.9 K/mm3 (4.0-10.0)
[2017-06-14 06:57] LABS: ALBUMIN 2.3 g/dl (3.4-5.0); ANION GAP 10 (8-16); BLOOD UREA NITROGEN 64 mg/dL (7-18); CALCIUM 7.8 mg/dL (8.5-10.1); CHLORIDE 100 mmol/L (98-107); CO2 30 mmol/L (21-32); CREATININE 2.2 mg/dL (0.55-1.02); GLUCOSE,RANDOM 161 mg/dL (74-106); MAGNESIUM 4.8 mg/dL (1.8-2.4); PHOSPHOROUS 4.5 mg/dL (2.5-4.9); POTASSIUM 4.4 mmol/L (3.5-5.1); SGOT/AST 16 U/L (15-37); SGPT/ALT 33 U/L (12-78); SODIUM 140 mmol/L (136-145)
[2017-06-14 06:59] LABS: ALK PHOS 66 U/L (45-117); BILIRUBIN,TOTAL 0.4 mg/dL (0.2-1.0); TOT PROT 5.3 g/dl (6.4-8.2)
--- NOTE | 2017-06-14 07:46 | PN ---
Progress Note, Physician Chief Complaint: ID ICU follow u for sepsis Meropenem and meteronidazole day 3 therapy.Dose of Vanco IV Diflucan day 5 Tachypneic - Current Medication List Current Medications: Active Medications Acetaminophen (Tylenol -) 650 mg PO Q6H PRN PRN Reason: FEVER OR PAIN Last Admin: 06/10/17 23:15 Dose: 650 mg Acetaminophen (Ofirmev Injection -) 1,000 mg IVPB Q6H PRN PRN Reason: FEVER OR PAIN Last Admin: 06/03/17 05:02 Dose: 1,000 mg Albuterol Sulfate (Ventolin 0.083% Nebulizer Soln -) 1 amp NEB Q1H PRN PRN Reason: SHORT OF BREATH/WHEEZING Last Admin: 06/10/17 20:04 Dose: 1 amp Albuterol Sulfate (Ventolin 0.083% Nebulizer Soln -) 1 amp NEB QIDR ANNA Last Admin: 06/14/17 05:09 Dose: 1 amp Diltiazem HCl (Cardizem Injection -) 30 mg IVPUSH Q6H PRN PRN Reason: TACHYCARDIA Last Admin: 06/02/17 19:20 Dose: 30 mg Diltiazem HCl (Cardizem Cd -) 180 mg PO DAILY [facility] Last Admin: 06/13/17 09:24 Dose: 180 mg Docusate Sodium (Colace -) 100 mg PO TID [facility] Last Admin: 06/14/17 06:26 Dose: 100 mg Fluconazole (Diflucan 100 Mg/Ns Premixed Ivpb -) 50 mls @ 50 mls/hr IVPB DAILY [facility] Last Admin: 06/13/17 10:08 Dose: 50 mls/hr Meropenem (Merrem (Restricted To Id) -) 500 mg in 10 mls @ 120 mls/hr IVPUSH BID [facility] Last Admin: 06/13/17 21:14 Dose: 120 mls/hr Metronidazole (Flagyl 500mg Premixed Ivpb -) 500 mg in 100 mls @ 100 mls/hr IVPB BID [facility] Last Admin: 06/13/17 21:15 Dose: 100 mls/hr Sodium Chloride (Normal Saline -) 1,000 mls @ 75 mls/hr IV ASDIR [facility] Last Admin: 06/13/17 21:14 Dose: 75 mls/hr Insulin Aspart (Novolog Vial Sliding Scale -) 1 vial SQ ACHS ANNA PRN Reason: Protocol Last Admin: 06/14/17 06:26 Dose: Not Given Lorazepam (Ativan Injection -) 0.5 mg IVPUSH Q6H PRN PRN Reason: ANXIETY Last Admin: 06/13/17 07:46 Dose: 0.5 mg Methylprednisolone Sodium Succinate (Solu-Medrol -) 20 mg IVPUSH DAILY [facility] Nitroglycerin (Nitro-Bid 2% Paste -) 1 inch TD QID [facility] Last Admin: 06/13/17 21:14 Dose: 1 inch Ondansetron HCl (Zofran Injection) 4 mg IVPUSH Q8H PRN PRN Reason: NAUSEA AND/OR VOMITING Last Admin: 06/08/17 19:50 Dose: 4 mg Quetiapine Fumarate (Seroquel -) 25 mg PO HS [facility] Last Admin: 06/13/17 21:14 Dose: 25 mg Ranitidine HCl (Zantac -) 300 mg PO DAILY@1800 [facility] Last Admin: 06/13/17 17:13 Dose: 300 mg Tiotropium [place] (Spiriva -) 1 puff IH DAILY [facility] Last Admin: 06/13/17 09:25 Dose: Not Given - Objective Vital Signs: Vital Signs Temperature 98 F 06/14/17 06:00 Pulse Rate 81 06/14/17 06:00 Respiratory Rate 16 06/14/17 06:00 Blood Pressure 131/79 06/14/17 06:00 O2 Sat by Pulse Oximetry (%) 95 06/13/17 19:49 Constitutional: Yes: Mild Distress, Moderate Distress Cardiovascular: Yes: Regular Rate and Rhythm, S1, S2 Respiratory: Yes: WNL, Regular, CTA Bilaterally Gastrointestinal: Yes: Normal Bowel Sounds, Soft, Tenderness. No: Tenderness, Rebound Extremities: No: Cold, Cool, Cyanosis Edema: No Labs: CBC, BMP 06/14/17 06:15 06/14/17 06:15 INR, PTT INR 0.89 (0.82-1.09) 06/12/17 11:15 Problem List - Problems (1) Aby esophagitis Code(s): B37.81 - CANDIDAL ESOPHAGITIS (2) Sepsis Code(s): A41.9 - SEPSIS, UNSPECIFIED ORGANISM Assessment/Plan Microbiology 06/05/17 13:05 Blood - Peripheral Venous Blood Culture - Final NO GROWTH AFTER 5 DAYS INCUBATION 06/05/17 12:58 Blood - Peripheral Venous Blood Culture - Final NO GROWTH AFTER 5 DAYS INCUBATION 06/11/17 12:36 Blood - Peripheral Venous Blood Culture - Preliminary NO GROWTH OBTAINED AFTER 48 HOURS, INCUBATION TO CONTINUE FOR 3 DAYS. 06/11/17 12:25 Blood - Peripheral Venous Blood Culture - Preliminary NO GROWTH OBTAINED AFTER 48 HOURS, INCUBATION TO CONTINUE FOR 3 DAYS. Laboratory Tests 06/12/17 06/14/17 06/14/17 21:30 06:15 06:15 WBC 24.9 H Hgb 9.0 L Hct 27.6 L Plt Count 268 BUN 64 H D Creatinine 2.2 H D Creat Clearance w eGFR 21.76 Lactic Acid 0.8 AST 16 D ALT 33 Alkaline Phosphatase 66 Assessment Sepsis with abd pain ? ischemic etiology Seen by surgery Leukocytosis persistant noted History of a vascular graft AAA 05/31 Acute renal failure on dialysis now COPD Plan Substitute Zosyn for Meropenem Continue Metronidazole Diflucan for Aby espohagitis Would Surgery feel CT with IV contrast helpful Critical care tij spent 38 minutes Bebo RAMIREZ s
[2017-06-14] MEDS: NITROGLYCERIN 2% OINTMENT - 1GM PACKET TD SCH ×4 (09:49→21:23)
[2017-06-14] MEDS: PIPERACILLIN/TAZOB 2.25 GM 2.25 GM/50 ML BAG IVPB SCH ×2 (09:49→17:19)
[2017-06-14] MEDS: FLUCONAZOLE 100 MG/NS 50 ML IVPB SCH (09:49)
--- NOTE | 2017-06-14 10:11 | PN ---
Progress Note (short form) - Note Progress Note: Vascular Surgery Pt seen and examined. Doing well. Minimal abdominal pain. Munir removed. CT reviewed and spoke to radiologist Stent graft in place. No leak. No retroperitoneal hematoma. WBC coming down on antibiotics. Josef Qureshi DO
[2017-06-14] MEDS: LORazepam 2 MG/ML SDV VIAL IVPUSH PRN ×2 (10:18→20:19)
--- NOTE | 2017-06-14 11:04 | PN ---
Progress Note, Physician Chief Complaint: abdominal pain History of Present Illness: 77 yo female PMH CKD, HTN, COPD and lung cancer s/p lobectomy ~3months ago, a- fib on Eliquis who presents to ED with c/o weakness, n/v and dark stools. She is found to have a AAA that has increased in size (5.4 to 5.8cm) during her hospitalization. She is now s/p and EVAR of the AAA on 05/31. She developed gradual worsening left abdominal pain that is now mostly resolved. She reports liquid BM, passing flatus. - Current Medication List Current Medications: Active Medications Acetaminophen (Tylenol -) 650 mg PO Q6H PRN PRN Reason: FEVER OR PAIN Last Admin: 06/10/17 23:15 Dose: 650 mg Acetaminophen (Ofirmev Injection -) 1,000 mg IVPB Q6H PRN PRN Reason: FEVER OR PAIN Last Admin: 06/03/17 05:02 Dose: 1,000 mg Albuterol Sulfate (Ventolin 0.083% Nebulizer Soln -) 1 amp NEB Q1H PRN PRN Reason: SHORT OF BREATH/WHEEZING Last Admin: 06/10/17 20:04 Dose: 1 amp Albuterol Sulfate (Ventolin 0.083% Nebulizer Soln -) 1 amp NEB QIDR ANNA Last Admin: 06/14/17 05:09 Dose: 1 amp Apixaban (Eliquis -) 2.5 mg PO BID ANNA Diltiazem HCl (Cardizem Injection -) 30 mg IVPUSH Q6H PRN PRN Reason: TACHYCARDIA Last Admin: 06/02/17 19:20 Dose: 30 mg Diltiazem HCl (Cardizem Cd -) 180 mg PO DAILY [facility] Last Admin: 06/14/17 09:49 Dose: 180 mg Docusate Sodium (Colace -) 100 mg PO TID [facility] Last Admin: 06/14/17 06:26 Dose: 100 mg Fluconazole (Diflucan 100 Mg/Ns Premixed Ivpb -) 50 mls @ 50 mls/hr IVPB DAILY [facility] Last Admin: 06/14/17 09:49 Dose: 50 mls/hr Metronidazole (Flagyl 500mg Premixed Ivpb -) 500 mg in 100 mls @ 100 mls/hr IVPB BID [facility] Last Admin: 06/14/17 09:49 Dose: 100 mls/hr Sodium Chloride (Normal Saline -) 1,000 mls @ 75 mls/hr IV ASDIR [facility] Last Admin: 06/13/17 21:14 Dose: 75 mls/hr Piperacillin/Tazobactam/Dextrose (Zosyn 2.25gm Ivpb (Premix)) 2.25 gm in 50 mls @ 100 mls/hr IVPB Q8H-IV ANNA PRN Reason: Protocol Last Admin: 06/14/17 09:49 Dose: 100 mls/hr Insulin Aspart (Novolog Vial Sliding Scale -) 1 vial SQ ACHS ANNA PRN Reason: Protocol Last Admin: 06/14/17 06:26 Dose: Not Given Lorazepam (Ativan Injection -) 0.5 mg IVPUSH Q6H PRN PRN Reason: ANXIETY Last Admin: 06/14/17 10:18 Dose: 0.5 mg Methylprednisolone Sodium Succinate (Solu-Medrol -) 20 mg IVPUSH DAILY [facility] Last Admin: 06/14/17 10:21 Dose: 20 mg Nitroglycerin (Nitro-Bid 2% Paste -) 1 inch TD QID [facility] Last Admin: 06/14/17 09:49 Dose: 1 inch Ondansetron HCl (Zofran Injection) 4 mg IVPUSH Q8H PRN PRN Reason: NAUSEA AND/OR VOMITING Last Admin: 06/08/17 19:50 Dose: 4 mg Quetiapine Fumarate (Seroquel -) 25 mg PO HS [facility] Last Admin: 06/13/17 21:14 Dose: 25 mg Ranitidine HCl (Zantac -) 300 mg PO DAILY@1800 [facility] Last Admin: 06/13/17 17:13 Dose: 300 mg Tiotropium [place] (Spiriva -) 1 puff IH DAILY [facility] Last Admin: 06/13/17 09:25 Dose: Not Given - Objective Vital Signs: Vital Signs Temperature 98 F 06/14/17 06:00 Pulse Rate 84 06/14/17 10:09 Respiratory Rate 25 H 06/14/17 10:00 Blood Pressure 121/80 06/14/17 10:00 O2 Sat by Pulse Oximetry (%) 100 06/14/17 10:09 Vital Signs Period Temp Pulse Resp BP Sys/Sellers Pulse Ox Last 24 Hr 97.4 F-98.5 F 76-102 14-25 111-143/63-87 95-100 Intake & Output 06/13/17 06/14/17 06/14/17 23:59 07:59 15:59 Intake Total 900 Balance 900 Weight 159 lb 3 oz Intake: IV 900 ivf NS @ 75cc/hr 900 Other: Voiding Method Incontinent Incontinent # Unmeasured Voids Void 1 2 Bowel Movement Yes # Bowel Movements 1 Weight Measurement Method Built in [facility] Constitutional: Yes: Well Nourished, No Distress, Calm, Other (more talkative) Eyes: Yes: Conjunctiva Clear, EOM Intact HENT: Yes: Atraumatic, Normocephalic Neck: Yes: Supple, Trachea Midline Cardiovascular: Yes: Regular Rate and Rhythm, S1, S2 Respiratory: Yes: Regular, CTA Bilaterally Gastrointestinal: Yes: Normal Bowel Sounds, Soft, Tenderness (much imporved, minimal discomfort on exam). No: Distention, Tenderness, Epigastrium, Tenderness, Rebound Genitourinary: No: CVA Tenderness - Left, CVA Tenderness - Right Edema: Yes Peripheral Pulses WNL: Yes Neurological: Yes: Alert, Oriented Psychiatric: Yes: Alert, Oriented Labs: CBC, BMP 06/14/17 06:15 06/14/17 06:15 INR, PTT INR 0.89 (0.82-1.09) 06/12/17 11:15 Microbiology 06/11/17 12:25 Blood - Peripheral Venous Blood Culture - Preliminary NO GROWTH OBTAINED AFTER 48 HOURS, INCUBATION TO CONTINUE FOR 3 DAYS. 06/11/17 12:36 Blood - Peripheral Venous Blood Culture - Preliminary NO GROWTH OBTAINED AFTER 48 HOURS, INCUBATION TO CONTINUE FOR 3 DAYS. 06/05/17 13:05 Blood - Peripheral Venous Blood Culture - Final NO GROWTH AFTER 5 DAYS INCUBATION 06/05/17 12:58 Blood - Peripheral Venous Blood Culture - Final NO GROWTH AFTER 5 DAYS INCUBATION Abnormal Lab Results 06/13/17 06/13/17 06/13/17 17:40 19:00 20:09 WBC RBC Hgb Hct BUN Creatinine Random Glucose Calcium Magnesium 7.7 H* 4.4 H D 3.9 H C-Reactive Protein Total Protein Albumin 06/14/17 06/14/17 06:15 06:15 WBC 24.9 H RBC 3.02 L Hgb 9.0 L Hct 27.6 L BUN 64 H D Creatinine 2.2 H D Random Glucose 161 H D Calcium 7.8 L Magnesium 4.8 H D C-Reactive Protein 5.8 H Total Protein 5.3 L Albumin 2.3 L - ....Imaging Chest X-ray: Report Reviewed, Image Reviewed (left pleural effusion, no free air ) X-ray: Report Reviewed (abdominal 06/13 progress of contrast from small bowel to colon), Image Reviewed Cat Scan: Report Reviewed, Image Reviewed (prominent wall thickening in ascending colon inflammatory versus infectious colitis less likely ischemia) Problem List - Problems (1) Colitis Assessment/Plan: 77 yo female MMP with adominal pain infectious versus ischemic colitis is most likely, Antigen Positive, abdominal pain improved, not likely acute bowel ischemia based on imaging, and serial clinical exams. Operative intervention at this point is not indicated. clear liquids as tolerated empiric antibiotics continue to trend CBC f/u Cdiff assays BP support, avoid hypotension GI followup to visualize colonic mucosa will follow for serial abdominal exams This patient is critically ill in the ICU. Time spent reviewing chart, examining patient, talking with providers and/or family and documentation is 35 minutes Code(s): K52.9 - NONINFECTIVE GASTROENTERITIS AND COLITIS, UNSPECIFIED (2) CHF (congestive heart failure) Code(s): I50.9 - HEART FAILURE, UNSPECIFIED (3) COPD exacerbation Code(s): J44.1 - CHRONIC OBSTRUCTIVE PULMONARY DISEASE W (ACUTE) EXACERBATION (4) History of endovascular stent graft for abdominal aortic aneurysm (AAA) Code(s): Z95.828 - PRESENCE OF OTHER VASCULAR IMPLANTS AND GRAFTS (5) Melena Code(s): K92.1 - MELENA (6) Atrial fibrillation Code(s): I48.91 - UNSPECIFIED ATRIAL FIBRILLATION Qualifiers: Atrial fibrillation type: persistent Qualified Code(s): I48.1 - Persistent atrial fibrillation (7) Lung malignancy Code(s): C34.90 - MALIGNANT NEOPLASM OF UNSP PART OF UNSP BRONCHUS OR LUNG Qualifiers: Laterality: left
[2017-06-14] MEDS ORDERED: HEMOQUE TEST 1 EACH EACH ONE (11:17)
[2017-06-14] MEDS: APIXABAN 2.5 MG TABLET PO SCH ×2 (12:19→21:22)
--- NOTE | 2017-06-14 12:27 | PN ---
Teaching Attending Note Name of Resident: Brady Gill ATTENDING PHYSICIAN STATEMENT I saw and evaluated the patient. I reviewed the resident's note and discussed the case with the resident. I agree with the resident's findings and plan as documented. SUBJECTIVE: Pt seen and examined in the ICU. Abdominal pain improving. Shortness of breath also improving. No fevers recorded. Reports liquid bowel movements. OBJECTIVE: Last Vital Signs Temp Pulse Resp BP Pulse Ox 98 F 84 25 H 121/80 98 06/14/17 06:00 06/14/17 10:09 06/14/17 10:00 06/14/17 10:00 06/14/17 12:01 Intake & Output 06/11/17 06/12/17 06/13/17 06/14/17 23:59 23:59 23:59 23:59 Intake Total 460 1999 1900 900 Balance 460 1999 190 900 Weight 160 lb 3.2 oz 159 lb 3 oz Gen: NAD at rest Heart: irregularly irregular Lung: scattered rhonchi Abd: soft, nontender Ext: no edema CBC, BMP 06/14/17 06:15 06/14/17 06:15 Active Medications Acetaminophen (Tylenol -) 650 mg PO Q6H PRN PRN Reason: FEVER OR PAIN Last Admin: 06/10/17 23:15 Dose: 650 mg Acetaminophen (Ofirmev Injection -) 1,000 mg IVPB Q6H PRN PRN Reason: FEVER OR PAIN Last Admin: 06/03/17 05:02 Dose: 1,000 mg Albuterol Sulfate (Ventolin 0.083% Nebulizer Soln -) 1 amp NEB Q1H PRN PRN Reason: SHORT OF BREATH/WHEEZING Last Admin: 06/10/17 20:04 Dose: 1 amp Albuterol Sulfate (Ventolin 0.083% Nebulizer Soln -) 1 amp NEB QIDR [facility]NA Last Admin: 06/14/17 11:46 Dose: 1 amp Apixaban (Eliquis -) 2.5 mg PO BID [facility] Last Admin: 06/14/17 12:19 Dose: 2.5 mg Diltiazem HCl (Cardizem Injection -) 30 mg IVPUSH Q6H PRN PRN Reason: TACHYCARDIA Last Admin: 06/02/17 19:20 Dose: 30 mg Diltiazem HCl (Cardizem Cd -) 180 mg PO DAILY [facility] Last Admin: 06/14/17 09:49 Dose: 180 mg Docusate Sodium (Colace -) 100 mg PO TID [facility] Last Admin: 06/14/17 06:26 Dose: 100 mg Fluconazole (Diflucan 100 Mg/Ns Premixed Ivpb -) 50 mls @ 50 mls/hr IVPB DAILY [facility] Last Admin: 06/14/17 09:49 Dose: 50 mls/hr Metronidazole (Flagyl 500mg Premixed Ivpb -) 500 mg in 100 mls @ 100 mls/hr IVPB BID [facility] Last Admin: 06/14/17 09:49 Dose: 100 mls/hr Sodium Chloride (Normal Saline -) 1,000 mls @ 75 mls/hr IV ASDIR [facility] Last Admin: 06/13/17 21:14 Dose: 75 mls/hr Piperacillin/Tazobactam/Dextrose (Zosyn 2.25gm Ivpb (Premix)) 2.25 gm in 50 mls @ 100 mls/hr IVPB Q8H-IV ANNA PRN Reason: Protocol Last Admin: 06/14/17 09:49 Dose: 100 mls/hr Insulin Aspart (Novolog Vial Sliding Scale -) 1 vial SQ ACHS [facility] PRN Reason: Protocol Last Admin: 06/14/17 11:25 Dose: Not Given Lorazepam (Ativan Injection -) 0.5 mg IVPUSH Q6H PRN PRN Reason: ANXIETY Last Admin: 06/14/17 10:18 Dose: 0.5 mg Methylprednisolone Sodium Succinate (Solu-Medrol -) 20 mg IVPUSH DAILY [facility] Last Admin: 06/14/17 10:21 Dose: 20 mg Nitroglycerin (Nitro-Bid 2% Paste -) 1 inch TD QID [facility] Last Admin: 06/14/17 09:49 Dose: 1 inch Ondansetron HCl (Zofran Injection) 4 mg IVPUSH Q8H PRN PRN Reason: NAUSEA AND/OR VOMITING Last Admin: 06/08/17 19:50 Dose: 4 mg Quetiapine Fumarate (Seroquel -) 25 mg PO HS [facility] Last Admin: 06/13/17 21:14 Dose: 25 mg Ranitidine HCl (Zantac -) 300 mg PO DAILY@1800 [facility] Last Admin: 06/13/17 17:13 Dose: 300 mg Tiotropium [place] (Spiriva -) 1 puff IH DAILY [facility] Last Admin: 06/13/17 09:25 Dose: Not Given ASSESSMENT AND PLAN: Acute Hypoxic Respiratory Failure improving AAA s/p EVAR Acute on Chronic Renal Failure requiring HD Lung Ca s/p LLL lobectomy COPD Atrial Fibrillation +C diff Ag Acute Colitis - continue antibiotics - PO as tolerated, advance diet - HD per renal - monitor urine output, creatinine - medrol taper - inhaled bronchodilators - O2 to keep SpO2>90% - rate controlled - continue anticoagulation - can monitor on telemetry
[2017-06-14] MEDS: TIOTROPIUM BROMIDE 18 MCG/INH (DEVICE W/ 5 CAPSULES) IH SCH (12:42)
--- NOTE | 2017-06-14 13:00 | PN ---
Progress Note, Physician History of Present Illness: patient seen and examined at bedside patient is frustrated she is still in the hospital - Current Medication List Current Medications: Active Medications Acetaminophen (Tylenol -) 650 mg PO Q6H PRN PRN Reason: FEVER OR PAIN Last Admin: 06/10/17 23:15 Dose: 650 mg Acetaminophen (Ofirmev Injection -) 1,000 mg IVPB Q6H PRN PRN Reason: FEVER OR PAIN Last Admin: 06/03/17 05:02 Dose: 1,000 mg Albuterol Sulfate (Ventolin 0.083% Nebulizer Soln -) 1 amp NEB Q1H PRN PRN Reason: SHORT OF BREATH/WHEEZING Last Admin: 06/10/17 20:04 Dose: 1 amp Albuterol Sulfate (Ventolin 0.083% Nebulizer Soln -) 1 amp NEB QIDR [facility] Last Admin: 06/14/17 11:46 Dose: 1 amp Apixaban (Eliquis -) 2.5 mg PO BID [facility] Last Admin: 06/14/17 12:19 Dose: 2.5 mg Diltiazem HCl (Cardizem Injection -) 30 mg IVPUSH Q6H PRN PRN Reason: TACHYCARDIA Last Admin: 06/02/17 19:20 Dose: 30 mg Diltiazem HCl (Cardizem Cd -) 180 mg PO DAILY [facility] Last Admin: 06/14/17 09:49 Dose: 180 mg Docusate Sodium (Colace -) 100 mg PO TID [facility] Last Admin: 06/14/17 06:26 Dose: 100 mg Fluconazole (Diflucan 100 Mg/Ns Premixed Ivpb -) 50 mls @ 50 mls/hr IVPB DAILY [facility] Last Admin: 06/14/17 09:49 Dose: 50 mls/hr Metronidazole (Flagyl 500mg Premixed Ivpb -) 500 mg in 100 mls @ 100 mls/hr IVPB BID [facility] Last Admin: 06/14/17 09:49 Dose: 100 mls/hr Sodium Chloride (Normal Saline -) 1,000 mls @ 75 mls/hr IV ASDIR [facility] Last Admin: 06/13/17 21:14 Dose: 75 mls/hr Piperacillin/Tazobactam/Dextrose (Zosyn 2.25gm Ivpb (Premix)) 2.25 gm in 50 mls @ 100 mls/hr IVPB Q8H-IV [facility]NA PRN Reason: Protocol Last Admin: 06/14/17 09:49 Dose: 100 mls/hr Insulin Aspart (Novolog Vial Sliding Scale -) 1 vial SQ ACHS [facility] PRN Reason: Protocol Last Admin: 06/14/17 11:25 Dose: Not Given Lorazepam (Ativan Injection -) 0.5 mg IVPUSH Q6H PRN PRN Reason: ANXIETY Last Admin: 06/14/17 10:18 Dose: 0.5 mg Methylprednisolone Sodium Succinate (Solu-Medrol -) 20 mg IVPUSH DAILY [facility] Last Admin: 06/14/17 10:21 Dose: 20 mg Nitroglycerin (Nitro-Bid 2% Paste -) 1 inch TD QID [facility] Last Admin: 06/14/17 09:49 Dose: 1 inch Ondansetron HCl (Zofran Injection) 4 mg IVPUSH Q8H PRN PRN Reason: NAUSEA AND/OR VOMITING Last Admin: 06/08/17 19:50 Dose: 4 mg Quetiapine Fumarate (Seroquel -) 25 mg PO HS [facility] Last Admin: 06/13/17 21:14 Dose: 25 mg Ranitidine HCl (Zantac -) 300 mg PO DAILY@1800 [facility] Last Admin: 06/13/17 17:13 Dose: 300 mg Tiotropium [place] (Spiriva -) 1 puff IH DAILY [facility] Last Admin: 06/14/17 12:42 Dose: 1 pfu - Objective Vital Signs: Vital Signs Temperature 98 F 06/14/17 06:00 Pulse Rate 93 H 06/14/17 12:00 Respiratory Rate 38 H 06/14/17 12:00 Blood Pressure 126/81 06/14/17 12:00 O2 Sat by Pulse Oximetry (%) 98 06/14/17 12:01 Constitutional: Yes: Well Nourished, No Distress HENT: Yes: Atraumatic Neck: Yes: Supple Cardiovascular: Yes: Pulse Irregular Respiratory: Yes: Rhonchi (scattered) Gastrointestinal: Yes: Normal Bowel Sounds, Soft. No: Distention, Tenderness Edema: No Labs: CBC, BMP 06/14/17 06:15 06/14/17 06:15 INR, PTT INR 0.89 (0.82-1.09) 06/12/17 11:15 Assessment/Plan 77F with multiple medical problems. Acute Hypoxic Respiratory Failure/COPD-improving taper steroids Neb O2 PRN decrease to nasal cannula as tolerated BiPAP PRN Concern for ischemic colitis-lactic acid normal so ischemic colitis unlikely C. Diff antigen positive continue antibiotics ABD pain improved surgery consult appreciated AAA s/p EVAR- Remove olayinka by vascular surgery No leak identified on CT scan Afib: Rate controlled restart eliquis continue cardizem Acute on chronic renal failure requiring dialysis f/u nephrology patient tolerated HD well yesterday Lung Ca s/p LLL Lobectomy FEN: no IVF hypermagnesemia-f/u renal for possible HD advance to full liquid diet PPx: eliquis Zantac PT consult Case discussed with Dr. Larry
--- NOTE | 2017-06-14 14:22 | PN ---
Progress Note, Physician History of Present Illness: Pt seen and examined at bedside. She is much more awake and alert today. - Current Medication List Current Medications: Active Medications Acetaminophen (Tylenol -) 650 mg PO Q6H PRN PRN Reason: FEVER OR PAIN Last Admin: 06/10/17 23:15 Dose: 650 mg Acetaminophen (Ofirmev Injection -) 1,000 mg IVPB Q6H PRN PRN Reason: FEVER OR PAIN Last Admin: 06/03/17 05:02 Dose: 1,000 mg Albuterol Sulfate (Ventolin 0.083% Nebulizer Soln -) 1 amp NEB Q1H PRN PRN Reason: SHORT OF BREATH/WHEEZING Last Admin: 06/10/17 20:04 Dose: 1 amp Albuterol Sulfate (Ventolin 0.083% Nebulizer Soln -) 1 amp NEB QIDR [facility] Last Admin: 06/14/17 11:46 Dose: 1 amp Apixaban (Eliquis -) 2.5 mg PO BID [facility] Last Admin: 06/14/17 12:19 Dose: 2.5 mg Diltiazem HCl (Cardizem Injection -) 30 mg IVPUSH Q6H PRN PRN Reason: TACHYCARDIA Last Admin: 06/02/17 19:20 Dose: 30 mg Diltiazem HCl (Cardizem Cd -) 180 mg PO DAILY [facility] Last Admin: 06/14/17 09:49 Dose: 180 mg Docusate Sodium (Colace -) 100 mg PO TID [facility] Last Admin: 06/14/17 13:13 Dose: 100 mg Fluconazole (Diflucan 100 Mg/Ns Premixed Ivpb -) 50 mls @ 50 mls/hr IVPB DAILY [facility] Last Admin: 06/14/17 09:49 Dose: 50 mls/hr Metronidazole (Flagyl 500mg Premixed Ivpb -) 500 mg in 100 mls @ 100 mls/hr IVPB BID [facility] Last Admin: 06/14/17 09:49 Dose: 100 mls/hr Sodium Chloride (Normal Saline -) 1,000 mls @ 75 mls/hr IV ASDIR [facility] Last Admin: 06/13/17 21:14 Dose: 75 mls/hr Piperacillin/Tazobactam/Dextrose (Zosyn 2.25gm Ivpb (Premix)) 2.25 gm in 50 mls @ 100 mls/hr IVPB Q8H-IV ANNA PRN Reason: Protocol Last Admin: 06/14/17 09:49 Dose: 100 mls/hr Insulin Aspart (Novolog Vial Sliding Scale -) 1 vial SQ ACHS [facility] PRN Reason: Protocol Last Admin: 06/14/17 11:25 Dose: Not Given Lorazepam (Ativan Injection -) 0.5 mg IVPUSH Q6H PRN PRN Reason: ANXIETY Last Admin: 06/14/17 10:18 Dose: 0.5 mg Methylprednisolone Sodium Succinate (Solu-Medrol -) 20 mg IVPUSH DAILY [facility] Last Admin: 06/14/17 10:21 Dose: 20 mg Nitroglycerin (Nitro-Bid 2% Paste -) 1 inch TD QID [facility] Last Admin: 06/14/17 13:13 Dose: 1 inch Ondansetron HCl (Zofran Injection) 4 mg IVPUSH Q8H PRN PRN Reason: NAUSEA AND/OR VOMITING Last Admin: 06/08/17 19:50 Dose: 4 mg Quetiapine Fumarate (Seroquel -) 25 mg PO HS [facility] Last Admin: 06/13/17 21:14 Dose: 25 mg Ranitidine HCl (Zantac -) 300 mg PO DAILY@1800 [facility] Last Admin: 06/13/17 17:13 Dose: 300 mg Tiotropium [place] (Spiriva -) 1 puff IH DAILY [facility] Last Admin: 06/14/17 12:42 Dose: 1 pfu - Objective Vital Signs: Vital Signs Temperature 98 F 06/14/17 06:00 Pulse Rate 93 H 06/14/17 12:00 Respiratory Rate 38 H 06/14/17 12:00 Blood Pressure 126/81 06/14/17 12:00 O2 Sat by Pulse Oximetry (%) 98 06/14/17 12:01 Constitutional: Yes: Calm Eyes: Yes: Conjunctiva Clear HENT: Yes: Atraumatic Cardiovascular: Yes: S1, S2 Respiratory: Yes: On Nasal O2 Gastrointestinal: Yes: Soft Genitourinary: Yes: Incontinence Musculoskeletal: Yes: Muscle Weakness Edema: No Neurological: Yes: Oriented Psychiatric: Yes: Oriented Labs: CBC, BMP 06/14/17 06:15 06/14/17 06:15 INR, PTT INR 0.89 (0.82-1.09) 06/12/17 11:15 Problem List - Problems (1) Abdominal aortic aneurysm (AAA) Code(s): I71.4 - ABDOMINAL AORTIC ANEURYSM, WITHOUT RUPTURE Qualifiers: Presence of rupture: without rupture Qualified Code(s): I71.4 - Abdominal aortic aneurysm, without rupture (2) Stool guaiac positive Code(s): R19.5 - OTHER FECAL ABNORMALITIES (3) Atrial fibrillation Code(s): I48.91 - UNSPECIFIED ATRIAL FIBRILLATION Qualifiers: Atrial fibrillation type: persistent Qualified Code(s): I48.1 - Persistent atrial fibrillation (4) COPD (chronic obstructive pulmonary disease) Code(s): J44.9 - CHRONIC OBSTRUCTIVE PULMONARY DISEASE, UNSPECIFIED Qualifiers: Emphysema type: centrilobular (5) Chronic renal disease Code(s): N18.9 - CHRONIC KIDNEY DISEASE, UNSPECIFIED Qualifiers: Chronic kidney disease stage: stage 4 (severe) Qualified Code(s): N18.4 - Chronic kidney disease, stage 4 (severe) (6) Pneumothorax Code(s): J93.9 - PNEUMOTHORAX, UNSPECIFIED Qualifiers: Pneumothorax type: postprocedural Qualified Code(s): J95.811 - Postprocedural pneumothorax (7) Tobacco use Code(s): Z72.0 - TOBACCO USE Assessment/Plan Current Medications Generic Name Dose Route Start Last Admin Trade Name Freq PRN Reason Stop Dose Admin Acetaminophen 650 mg 06/02/17 19:24 06/10/17 23:15 Tylenol - PO 650 mg Q6H PRN Administration FEVER OR PAIN Acetaminophen 1,000 mg 06/02/17 22:51 06/03/17 05:02 Ofirmev Injection - IVPB 1,000 mg Q6H PRN Administration FEVER OR PAIN Albuterol Sulfate 1 amp 06/10/17 10:22 06/10/17 20:04 Ventolin 0.083% Nebulizer Soln - NEB 1 amp Q1H PRN Administration SHORT OF BREATH/WHEEZING Albuterol Sulfate 1 amp 06/10/17 11:56 06/14/17 11:46 Ventolin 0.083% Nebulizer Soln - NEB 1 amp QIDR ANNA Administration Apixaban 2.5 mg 06/14/17 11:00 06/14/17 12:19 Eliquis - PO 2.5 mg BID ANNA Administration Diltiazem HCl 30 mg 06/02/17 19:16 06/02/17 19:20 Cardizem Injection - IVPUSH 30 mg Q6H PRN Administration TACHYCARDIA Diltiazem HCl 180 mg 06/03/17 10:00 06/14/17 09:49 Cardizem Cd - PO 180 mg DAILY [facility] Administration Docusate Sodium 100 mg 06/02/17 22:00 06/14/17 13:13 Colace - PO 100 mg TID [facility]NA Administration Fluconazole 50 mls @ 50 mls/hr 06/09/17 19:15 06/14/17 09:49 Diflucan 100 Mg/Ns Premixed Ivpb - IVPB 50 mls/hr DAILY [facility] Administration Metronidazole 500 mg in 100 mls @ 100 mls/hr 06/12/17 14:00 06/14/17 09:49 Flagyl 500mg Premixed Ivpb - IVPB 100 mls/hr BID [facility] Administration Sodium Chloride 1,000 mls @ 75 mls/hr 06/13/17 19:56 06/13/17 21:14 Normal Saline - IV 75 mls/hr ASDIR [facility] Administration Piperacillin/Tazobactam/Dextrose 2.25 gm in 50 mls @ 100 mls/hr 06/14/17 10: 00 06/14/17 09:49 Zosyn 2.25gm Ivpb (Premix) IVPB 100 mls/hr Q8H-IV ANNA Administration Protocol Insulin Aspart 1 vial 06/10/17 16:30 06/14/17 11:25 Novolog Vial Sliding Scale - SQ Not Given ACHS [facility]NA Protocol Lorazepam 0.5 mg 06/12/17 20:38 06/14/17 10:18 Ativan Injection - IVPUSH 0.5 mg Q6H PRN Administration ANXIETY Methylprednisolone Sodium Succinate 20 mg 06/14/17 10:00 06/14/17 10:21 Solu-Medrol - IVPUSH 20 mg DAILY [facility] Administration Nitroglycerin 1 inch 06/11/17 10:00 06/14/17 13:13 Nitro-Bid 2% Paste - TD 1 inch QID [facility] Administration Ondansetron HCl 4 mg 06/08/17 19:34 06/08/17 19:50 Zofran Injection IVPUSH 4 mg Q8H PRN Administration NAUSEA AND/OR VOMITING Quetiapine Fumarate 25 mg 06/13/17 22:00 12/17/17 21:14 Seroquel - PO 25 mg HS ANNA Administration Ranitidine HCl 300 mg 06/03/17 18:30 06/13/17 17:13 Zantac - PO 300 mg DAILY@1800 [facility] Administration Tiotropium [place] 1 puff 06/03/17 10:00 06/14/17 12:42 Spiriva - IH 1 pfu DAILY [facility] Administration 1. CKD with acute component 2. AAA 3. lung cancer 4. HTN 5. a-fib 6. chol 7. hx hydropneumothorax 8. GI bleed 9. sepsis 10. leukocytosis 11. COLE 12. abdominal pain 13. hypoxia/erpiratory failure requiring bipap 14. hypermagnesemia requiring HD for removal Plan - pt tolerated HD yesterday - repeat mag level in am - cont fluids - surgery follow up - will evaluate for HD again in am - HD for hypermag - avoid all laxatives/antacids with magnesium - discussed with surgery - repeat labs in am - cont bipap as needed - pulm follow up - monitor BP - cont ICU care - will follow Dr Shearer
--- NOTE | 2017-06-14 16:18 | PN ---
Progress Note, Physician Chief Complaint: AWAKE ALERT C/O WEAKNESS AND MUSCLE ACHES - Current Medication List Current Medications: Active Medications Acetaminophen (Tylenol -) 650 mg PO Q6H PRN PRN Reason: FEVER OR PAIN Last Admin: 06/10/17 23:15 Dose: 650 mg Acetaminophen (Ofirmev Injection -) 1,000 mg IVPB Q6H PRN PRN Reason: FEVER OR PAIN Last Admin: 06/03/17 05:02 Dose: 1,000 mg Albuterol Sulfate (Ventolin 0.083% Nebulizer Soln -) 1 amp NEB Q1H PRN PRN Reason: SHORT OF BREATH/WHEEZING Last Admin: 06/10/17 20:04 Dose: 1 amp Albuterol Sulfate (Ventolin 0.083% Nebulizer Soln -) 1 amp NEB QIDR [facility] Last Admin: 06/14/17 11:46 Dose: 1 amp Apixaban (Eliquis -) 2.5 mg PO BID [facility] Last Admin: 06/14/17 12:19 Dose: 2.5 mg Diltiazem HCl (Cardizem Injection -) 30 mg IVPUSH Q6H PRN PRN Reason: TACHYCARDIA Last Admin: 06/02/17 19:20 Dose: 30 mg Diltiazem HCl (Cardizem Cd -) 180 mg PO DAILY [facility] Last Admin: 06/14/17 09:49 Dose: 180 mg Docusate Sodium (Colace -) 100 mg PO TID [facility] Last Admin: 06/14/17 13:13 Dose: 100 mg Fluconazole (Diflucan 100 Mg/Ns Premixed Ivpb -) 50 mls @ 50 mls/hr IVPB DAILY [facility] Last Admin: 06/14/17 09:49 Dose: 50 mls/hr Metronidazole (Flagyl 500mg Premixed Ivpb -) 500 mg in 100 mls @ 100 mls/hr IVPB BID [facility] Last Admin: 06/14/17 09:49 Dose: 100 mls/hr Sodium Chloride (Normal Saline -) 1,000 mls @ 75 mls/hr IV ASDIR [facility] Last Admin: 06/13/17 21:14 Dose: 75 mls/hr Piperacillin/Tazobactam/Dextrose (Zosyn 2.25gm Ivpb (Premix)) 2.25 gm in 50 mls @ 100 mls/hr IVPB Q8H-IV [facility]NA PRN Reason: Protocol Last Admin: 06/14/17 09:49 Dose: 100 mls/hr Insulin Aspart (Novolog Vial Sliding Scale -) 1 vial SQ ACHS [facility] PRN Reason: Protocol Last Admin: 06/14/17 11:25 Dose: Not Given Lorazepam (Ativan Injection -) 0.5 mg IVPUSH Q6H PRN PRN Reason: ANXIETY Last Admin: 06/14/17 10:18 Dose: 0.5 mg Methylprednisolone Sodium Succinate (Solu-Medrol -) 20 mg IVPUSH DAILY [facility] Last Admin: 06/14/17 10:21 Dose: 20 mg Nitroglycerin (Nitro-Bid 2% Paste -) 1 inch TD QID [facility] Last Admin: 06/14/17 13:13 Dose: 1 inch Ondansetron HCl (Zofran Injection) 4 mg IVPUSH Q8H PRN PRN Reason: NAUSEA AND/OR VOMITING Last Admin: 06/08/17 19:50 Dose: 4 mg Quetiapine Fumarate (Seroquel -) 25 mg PO HS [facility] Last Admin: 06/13/17 21:14 Dose: 25 mg Ranitidine HCl (Zantac -) 300 mg PO DAILY@1800 [facility] Last Admin: 06/13/17 17:13 Dose: 300 mg Tiotropium [place] (Spiriva -) 1 puff IH DAILY [facility] Last Admin: 06/14/17 12:42 Dose: 1 pfu - Objective Vital Signs: Vital Signs Temperature 98.3 F 06/14/17 14:00 Pulse Rate 82 06/14/17 16:00 Respiratory Rate 18 06/14/17 16:00 Blood Pressure 127/76 06/14/17 16:00 O2 Sat by Pulse Oximetry (%) 99 06/14/17 14:32 Constitutional: Yes: Moderate Distress Eyes: Yes: WNL HENT: Yes: WNL Neck: Yes: WNL Cardiovascular: Yes: Pulse Irregular Respiratory: Yes: On Nasal O2, SOB Gastrointestinal: Yes: WNL Genitourinary: Yes: Incontinence Musculoskeletal: Yes: Muscle Weakness Extremities: Yes: WNL Edema: No Peripheral Pulses WNL: Yes Integumentary: Yes: WNL Wound/Incision: Yes: Clean/Dry Neurological: Yes: Unsteady Gait, Weakness ...Motor Strength: LLE, RLE Psychiatric: Yes: WNL Labs: CBC, BMP 06/14/17 06:15 06/14/17 06:15 INR, PTT INR 0.89 (0.82-1.09) 06/12/17 11:15 Problem List - Problems (1) Melena Code(s): K92.1 - MELENA (2) Stool guaiac positive Code(s): R19.5 - OTHER FECAL ABNORMALITIES (3) Abdominal aneurysm Code(s): I71.4 - ABDOMINAL AORTIC ANEURYSM, WITHOUT RUPTURE (4) Atrial fibrillation Code(s): I48.91 - UNSPECIFIED ATRIAL FIBRILLATION Qualifiers: Atrial fibrillation type: persistent Qualified Code(s): I48.1 - Persistent atrial fibrillation (5) COPD (chronic obstructive pulmonary disease) Code(s): J44.9 - CHRONIC OBSTRUCTIVE PULMONARY DISEASE, UNSPECIFIED Qualifiers: Emphysema type: centrilobular (6) Chronic renal disease Code(s): N18.9 - CHRONIC KIDNEY DISEASE, UNSPECIFIED Qualifiers: Chronic kidney disease stage: stage 4 (severe) Qualified Code(s): N18.4 - Chronic kidney disease, stage 4 (severe) (7) Constipation Code(s): K59.00 - CONSTIPATION, UNSPECIFIED (8) Lung malignancy Code(s): C34.90 - MALIGNANT NEOPLASM OF UNSP PART OF UNSP BRONCHUS OR LUNG Qualifiers: Laterality: left Assessment/Plan ICU CRITICAL CARE F/U APPRECIATED LABS REVIEWED, EVENTS NOTED OOB TO CHAIR WITH PT EVAL BEDSIDE PT FOR STRENGHTENING DIETARY CHANGES WITH PROTEIN SUPPLEMENTS 02 SUPPORT HD PER RENAL IV ABX
[2017-06-14] MEDS ORDERED: PT OWN MED DRAWER 7, Y5N ONE (16:54)
[2017-06-14] MEDS: RANITIDINE HCL 150 MG TABLET (FP) PO SCH (17:19)
[2017-06-14] MEDS: QUEtiapine FUMARATE 25 MG TABLET (FP) PO SCH (21:22)
[2017-06-15] MEDS: ALBUTEROL SO4 0.083% IH SOL 2.5 MG/3 ML VIAL.NEB. NEB SCH ×2 (00:23→06:40)
--- NOTE | 2017-06-15 01:24 | EKG ---
Test Reason : Blood Pressure : / mmHG Vent. Rate : 085 BPM Atrial Rate : 077 BPM P-R Int : 000 ms QRS Dur : 128 ms QT Int : 390 ms P-R-T Axes : 000 080 020 degrees QTc Int : 464 ms ATRIAL FIBRILLATION NON-SPECIFIC INTRA-VENTRICULAR CONDUCTION BLOCK T WAVE ABNORMALITY, CONSIDER ANTEROLATERAL ISCHEMIA ABNORMAL ECG WHEN COMPARED WITH ECG OF 11-JUN-2017 08:54, T WAVE VARIATION VENT. RATE HAS INCREASED Confirmed by SHARMILA RAMIREZ, [place] ([id number]) on 06/15/2017 1:23:57 AM Referred By: Confirmed By:KINGSTON DOLL MD
[2017-06-15] MEDS: PIPERACILLIN/TAZOB 2.25 GM 2.25 GM/50 ML BAG IVPB SCH ×3 (01:32→17:06)
[2017-06-15] MEDS: SODIUM CHLORIDE 1,000 ML IV SCH ×2 (01:39→13:37)
[2017-06-15] MEDS: DOCUSATE SODIUM 100 MG CAPSULE (FP) PO SCH ×3 (05:34→21:35)
[2017-06-15 06:06] LABS: HBSAG SCREEN Negative (Negative); HEP B CORE AB, TOT Negative (Negative)
[2017-06-15] MEDS: INSULIN SLIDING SCALE (NOVOLOG) 1 VIAL SQ SCH ×4 (06:33→21:36)
[2017-06-15 07:24] LABS: HEMATOCRIT 26.8 % (32.4-45.2); HEMOGLOBIN 8.6 GM/dL (10.7-15.3); MCH 29.6 pg (25.7-33.7); MCHC 31.9 g/dl (32.0-36.0); MEAN CELL VOLUME 92.6 fl (80-96); MEAN PLT VOLUME 8.3 fl (7.5-11.1); PLATELET COUNT 205 K/MM3 (134-434); RBC 2.89 M/mm3 (3.60-5.2); RDW 15.5 % (11.6-15.6); WHITE BLOOD COUNT 26.1 K/mm3 (4.0-10.0)
[2017-06-15 07:34] LABS: CHLORIDE 103 mmol/L (98-107); POTASSIUM 4.9 mmol/L (3.5-5.1); SODIUM 141 mmol/L (136-145)
[2017-06-15 07:43] LABS: ALK PHOS 62 U/L (45-117); ANION GAP 12 (8-16); BILIRUBIN,TOTAL 0.4 mg/dL (0.2-1.0); BLOOD UREA NITROGEN 70 mg/dL (7-18); CALCIUM 7.3 mg/dL (8.5-10.1); CO2 26 mmol/L (21-32); CREATININE 2.6 mg/dL (0.55-1.02); GLUCOSE,RANDOM 177 mg/dL (74-106); MAGNESIUM 4.3 mg/dL (1.8-2.4); PHOSPHOROUS 4.2 mg/dL (2.5-4.9); SGOT/AST 17 U/L (15-37); SGPT/ALT 35 U/L (12-78); TOT PROT 4.8 g/dl (6.4-8.2)
[2017-06-15] MEDS: LORazepam 2 MG/ML SDV VIAL IVPUSH PRN ×2 (09:07→17:06)
[2017-06-15] MEDS: FLUCONAZOLE 100 MG/NS 50 ML IVPB SCH (09:07)
[2017-06-15] MEDS: APIXABAN 2.5 MG TABLET PO SCH ×2 (09:07→21:35)
[2017-06-15] MEDS: methylPREDNISolone NA SUCC 40 MG/1 ML VIAL IVPUSH SCH (09:07)
[2017-06-15] MEDS: NITROGLYCERIN 2% OINTMENT - 1GM PACKET TD SCH ×4 (09:08→21:36)
[2017-06-15] MEDS: TIOTROPIUM BROMIDE 18 MCG/INH (DEVICE W/ 5 CAPSULES) IH SCH (09:08)
--- NOTE | 2017-06-15 10:01 | PN ---
Progress Note, Physician Chief Complaint: abdominal pain History of Present Illness: 77 yo female PMH CKD, HTN, COPD and lung cancer s/p lobectomy ~3months ago, a- fib on Eliquis who presents to ED with c/o weakness, n/v and dark stools. She is found to have a AAA that has increased in size (5.4 to 5.8cm) during her hospitalization. She is now s/p and EVAR of the AAA on 05/31. She developed gradual worsening left abdominal pain that is now mostly resolved. She reports liquid BM, passing flatus. - Current Medication List Current Medications: Active Medications Acetaminophen (Tylenol -) 650 mg PO Q6H PRN PRN Reason: FEVER OR PAIN Last Admin: 06/10/17 23:15 Dose: 650 mg Acetaminophen (Ofirmev Injection -) 1,000 mg IVPB Q6H PRN PRN Reason: FEVER OR PAIN Last Admin: 06/03/17 05:02 Dose: 1,000 mg Albuterol Sulfate (Ventolin 0.083% Nebulizer Soln -) 1 amp NEB Q1H PRN PRN Reason: SHORT OF BREATH/WHEEZING Last Admin: 06/10/17 20:04 Dose: 1 amp Albuterol Sulfate (Ventolin 0.083% Nebulizer Soln -) 1 amp NEB QIDR ANNA Last Admin: 06/15/17 06:40 Dose: 1 amp Apixaban (Eliquis -) 2.5 mg PO BID ANNA Last Admin: 06/15/17 09:07 Dose: 2.5 mg Diltiazem HCl (Cardizem Injection -) 30 mg IVPUSH Q6H PRN PRN Reason: TACHYCARDIA Last Admin: 06/02/17 19:20 Dose: 30 mg Diltiazem HCl (Cardizem Cd -) 180 mg PO DAILY ANNA Last Admin: 06/15/17 09:07 Dose: 180 mg Docusate Sodium (Colace -) 100 mg PO TID ANNA Last Admin: 06/15/17 05:34 Dose: Not Given Fluconazole (Diflucan 100 Mg/Ns Premixed Ivpb -) 50 mls @ 50 mls/hr IVPB DAILY ANNA Last Admin: 06/15/17 09:07 Dose: 50 mls/hr Metronidazole (Flagyl 500mg Premixed Ivpb -) 500 mg in 100 mls @ 100 mls/hr IVPB BID ANNA Last Admin: 06/15/17 09:07 Dose: 100 mls/hr Sodium Chloride (Normal Saline -) 1,000 mls @ 75 mls/hr IV ASDIR ANNA Last Admin: 06/15/17 01:39 Dose: 75 mls/hr Piperacillin/Tazobactam/Dextrose (Zosyn 2.25gm Ivpb (Premix)) 2.25 gm in 50 mls @ 100 mls/hr IVPB Q8H-IV ANNA PRN Reason: Protocol Last Admin: 06/15/17 01:32 Dose: 100 mls/hr Insulin Aspart (Novolog Vial Sliding Scale -) 1 vial SQ ACHS ANNA PRN Reason: Protocol Last Admin: 06/15/17 06:33 Dose: 2 units Lorazepam (Ativan Injection -) 0.5 mg IVPUSH Q6H PRN PRN Reason: ANXIETY Last Admin: 06/15/17 09:07 Dose: 0.5 mg Methylprednisolone Sodium Succinate (Solu-Medrol -) 20 mg IVPUSH DAILY [facility] Last Admin: 06/15/17 09:07 Dose: 20 mg Nitroglycerin (Nitro-Bid 2% Paste -) 1 inch TD QID [facility] Last Admin: 06/15/17 09:08 Dose: 1 inch Ondansetron HCl (Zofran Injection) 4 mg IVPUSH Q8H PRN PRN Reason: NAUSEA AND/OR VOMITING Last Admin: 06/08/17 19:50 Dose: 4 mg Quetiapine Fumarate (Seroquel -) 25 mg PO HS [facility] Last Admin: 06/14/17 21:22 Dose: 25 mg Ranitidine HCl (Zantac -) 300 mg PO DAILY@1800 [facility] Last Admin: 06/14/17 17:19 Dose: 300 mg Tiotropium [place] (Spiriva -) 1 puff IH DAILY [facility] Last Admin: 06/15/17 09:08 Dose: 1 pfu - Objective Vital Signs: Vital Signs Temperature 98.2 F 06/15/17 05:10 Pulse Rate 87 06/15/17 05:10 Respiratory Rate 21 06/15/17 05:10 Blood Pressure 137/75 06/15/17 05:10 O2 Sat by Pulse Oximetry (%) 100 06/14/17 20:50 Vital Signs Period Temp Pulse Resp BP Sys/Sellers Pulse Ox Last 24 Hr 97.4 F-98.8 F 81-96 18-38 110-137/64-81 98-100 Constitutional: Yes: Well Nourished, Calm, Mild Distress (insistent on being discharged to rehab) Eyes: Yes: Conjunctiva Clear, EOM Intact HENT: Yes: Atraumatic, Normocephalic Neck: Yes: Supple, Trachea Midline Cardiovascular: Yes: Regular Rate and Rhythm, S1, S2 Respiratory: Yes: Regular, Diminished (left lung diminished breath sounds) Gastrointestinal: Yes: Normal Bowel Sounds, Soft. No: Tenderness, Tenderness, Epigastrium, Tenderness, Rebound ...Rectal Exam: Yes: Deferred Musculoskeletal: Yes: Muscle Weakness. No: Muscle Pain Extremities: No: Cool, Cyanosis Edema: Yes Edema: LLE: 2+, RLE: 2+ Peripheral Pulses: Left Radial: 2+, Right Radial: 2+, Left Doralis Pedis: 2+, Right Dorsalis Pedis: 2+, Left Femoral: 2+, Right Femoral: 2+ Neurological: Yes: Alert, Oriented, Confusion (she may no understand her condition) Psychiatric: Yes: Alert, Oriented Labs: CBC, BMP 06/15/17 05:05 06/15/17 05:05 Abnormal Lab Results 06/15/17 06/15/17 05:05 05:05 WBC 26.1 H RBC 2.89 L Hgb 8.6 L Hct 26.8 L MCHC 31.9 L BUN 70 H Creatinine 2.6 H Random Glucose 177 H Calcium 7.3 L Magnesium 4.3 H Total Protein 4.8 L Albumin 2.0 L Problem List - Problems (1) Colitis Assessment/Plan: 77 yo female MMP with abdominal pain infectious versus ischemic colitis is most likely, Antigen Positive, abdominal pain improved, not likely acute bowel ischemia based on imaging, and serial clinical exams. Operative intervention at this point is not indicated. clear liquids as tolerated empiric antibiotics continue to trend CBC f/u Cdiff assays f/u endoscopy reports will follow peripherally Code(s): K52.9 - NONINFECTIVE GASTROENTERITIS AND COLITIS, UNSPECIFIED (2) CHF (congestive heart failure) Code(s): I50.9 - HEART FAILURE, UNSPECIFIED (3) COPD exacerbation Code(s): J44.1 - CHRONIC OBSTRUCTIVE PULMONARY DISEASE W (ACUTE) EXACERBATION (4) History of endovascular stent graft for abdominal aortic aneurysm (AAA) Code(s): Z95.828 - PRESENCE OF OTHER VASCULAR IMPLANTS AND GRAFTS (5) Melena Code(s): K92.1 - MELENA (6) Atrial fibrillation Code(s): I48.91 - UNSPECIFIED ATRIAL FIBRILLATION Qualifiers: Atrial fibrillation type: persistent Qualified Code(s): I48.1 - Persistent atrial fibrillation (7) Lung malignancy Code(s): C34.90 - MALIGNANT NEOPLASM OF UNSP PART OF UNSP BRONCHUS OR LUNG Qualifiers: Laterality: left
--- NOTE | 2017-06-15 10:57 | PN ---
Progress Note, Physician History of Present Illness: pulmonary alert,-resp distress,c/o lower ext weakness - Current Medication List Current Medications: Active Medications Acetaminophen (Tylenol -) 650 mg PO Q6H PRN PRN Reason: FEVER OR PAIN Last Admin: 06/10/17 23:15 Dose: 650 mg Acetaminophen (Ofirmev Injection -) 1,000 mg IVPB Q6H PRN PRN Reason: FEVER OR PAIN Last Admin: 06/03/17 05:02 Dose: 1,000 mg Albuterol Sulfate (Ventolin 0.083% Nebulizer Soln -) 1 amp NEB QIDR COUNTS INCLUDE 234 BEDS AT [facility] Last Admin: 06/15/17 06:40 Dose: 1 amp Apixaban (Eliquis -) 2.5 mg PO BID COUNTS INCLUDE 234 BEDS AT THE [facility] Last Admin: 06/15/17 09:07 Dose: 2.5 mg Diltiazem HCl (Cardizem Injection -) 30 mg IVPUSH Q6H PRN PRN Reason: TACHYCARDIA Last Admin: 06/02/17 19:20 Dose: 30 mg Diltiazem HCl (Cardizem Cd -) 180 mg PO DAILY COUNTS INCLUDE 234 BEDS AT [facility] Last Admin: 06/15/17 09:07 Dose: 180 mg Docusate Sodium (Colace -) 100 mg PO TID COUNTS INCLUDE 234 BEDS AT THE [facility] Last Admin: 06/15/17 05:34 Dose: Not Given Fluconazole (Diflucan 100 Mg/Ns Premixed Ivpb -) 50 mls @ 50 mls/hr IVPB DAILY COUNTS INCLUDE 234 BEDS AT [facility] Last Admin: 06/15/17 09:07 Dose: 50 mls/hr Metronidazole (Flagyl 500mg Premixed Ivpb -) 500 mg in 100 mls @ 100 mls/hr IVPB BID COUNTS INCLUDE 234 BEDS AT [facility] Last Admin: 06/15/17 09:07 Dose: 100 mls/hr Sodium Chloride (Normal Saline -) 1,000 mls @ 75 mls/hr IV ASDIR COUNTS INCLUDE 234 BEDS AT THE [facility] Last Admin: 06/15/17 01:39 Dose: 75 mls/hr Piperacillin/Tazobactam/Dextrose (Zosyn 2.25gm Ivpb (Premix)) 2.25 gm in 50 mls @ 100 mls/hr IVPB Q8H-IV ANNA PRN Reason: Protocol Last Admin: 06/15/17 01:32 Dose: 100 mls/hr Insulin Aspart (Novolog Vial Sliding Scale -) 1 vial SQ ACHS ANNA PRN Reason: Protocol Last Admin: 06/15/17 06:33 Dose: 2 units Lorazepam (Ativan Injection -) 0.5 mg IVPUSH Q6H PRN PRN Reason: ANXIETY Last Admin: 06/15/17 09:07 Dose: 0.5 mg Methylprednisolone Sodium Succinate (Solu-Medrol -) 20 mg IVPUSH DAILY COUNTS INCLUDE 234 BEDS AT [facility] Last Admin: 06/15/17 09:07 Dose: 20 mg Nitroglycerin (Nitro-Bid 2% Paste -) 1 inch TD QID COUNTS INCLUDE 234 BEDS AT [facility] Last Admin: 06/15/17 09:08 Dose: 1 inch Ondansetron HCl (Zofran Injection) 4 mg IVPUSH Q8H PRN PRN Reason: NAUSEA AND/OR VOMITING Last Admin: 06/08/17 19:50 Dose: 4 mg Quetiapine Fumarate (Seroquel -) 25 mg PO HS COUNTS INCLUDE 234 BEDS AT [facility] Last Admin: 06/14/17 21:22 Dose: 25 mg Ranitidine HCl (Zantac -) 300 mg PO DAILY@1800 COUNTS [facility]CLUDE 234 BEDS AT [facility] Last Admin: 06/14/17 17:19 Dose: 300 mg Tiotropium [place] (Spiriva -) 1 puff IH DAILY COUNTS INCLUDE 234 BEDS AT [facility] Last Admin: 06/15/17 09:08 Dose: 1 pfu - Objective Vital Signs: Vital Signs Temperature 98.2 F 06/15/17 05:10 Pulse Rate 87 06/15/17 05:10 Respiratory Rate 21 06/15/17 05:10 Blood Pressure 137/75 06/15/17 05:10 O2 Sat by Pulse Oximetry (%) 100 06/14/17 20:50 Constitutional: Yes: Well Nourished, Calm Eyes: Yes: WNL HENT: Yes: WNL Neck: Yes: WNL Cardiovascular: Yes: Pulse Irregular, S1, S2 Respiratory: Yes: CTA Bilaterally Gastrointestinal: Yes: Normal Bowel Sounds, Soft Extremities: Yes: WNL Edema: No Neurological: Yes: Loss of Sensation ...Motor Strength: LLE, RLE (rle ,lle weakness) Labs: CBC, BMP 06/15/17 05:05 06/15/17 05:05 INR, PTT INR 0.89 (0.82-1.09) 06/12/17 11:15 Assessment/Plan A/P S/P Acute hypoxemic respiratory failure AAA S/P EVAR Lung Ca s/p LLL lobectomy COPD Atrial Fibrillation Acute on chronic renal failure Pulmonary Htn Anemia Weakness - continue iv steroids - HD as per renal - inhaled bronchodilators - incentive spirometry - DVT prophylaxis - strict I+Os - pt evaluation DR CRUZ
--- NOTE | 2017-06-15 13:26 | PN ---
Progress Note, Physician History of Present Illness: Pt seen and examined at bedside. She is awake and alert. She is eager to go to rehab. She denies shortness of breath. - Current Medication List Current Medications: Active Medications Acetaminophen (Tylenol -) 650 mg PO Q6H PRN PRN Reason: FEVER OR PAIN Last Admin: 06/10/17 23:15 Dose: 650 mg Acetaminophen (Ofirmev Injection -) 1,000 mg IVPB Q6H PRN PRN Reason: FEVER OR PAIN Last Admin: 06/03/17 05:02 Dose: 1,000 mg Apixaban (Eliquis -) 2.5 mg PO BID ANNA Last Admin: 06/15/17 09:07 Dose: 2.5 mg Diltiazem HCl (Cardizem Injection -) 30 mg IVPUSH Q6H PRN PRN Reason: TACHYCARDIA Last Admin: 06/02/17 19:20 Dose: 30 mg Diltiazem HCl (Cardizem Cd -) 180 mg PO DAILY ANNA Last Admin: 06/15/17 09:07 Dose: 180 mg Docusate Sodium (Colace -) 100 mg PO TID ANNA Last Admin: 06/15/17 05:34 Dose: Not Given Fluconazole (Diflucan 100 Mg/Ns Premixed Ivpb -) 50 mls @ 50 mls/hr IVPB DAILY [facility] Last Admin: 06/15/17 09:07 Dose: 50 mls/hr Metronidazole (Flagyl 500mg Premixed Ivpb -) 500 mg in 100 mls @ 100 mls/hr IVPB BID [facility] Last Admin: 06/15/17 09:07 Dose: 100 mls/hr Sodium Chloride (Normal Saline -) 1,000 mls @ 75 mls/hr IV ASDIR ANNA Last Admin: 06/15/17 01:39 Dose: 75 mls/hr Piperacillin/Tazobactam/Dextrose (Zosyn 2.25gm Ivpb (Premix)) 2.25 gm in 50 mls @ 100 mls/hr IVPB Q8H-IV ANNA PRN Reason: Protocol Last Admin: 06/15/17 01:32 Dose: 100 mls/hr Insulin Aspart (Novolog Vial Sliding Scale -) 1 vial SQ ACHS ANNA PRN Reason: Protocol Last Admin: 06/15/17 11:38 Dose: Not Given Lorazepam (Ativan Injection -) 0.5 mg IVPUSH Q6H PRN PRN Reason: ANXIETY Last Admin: 06/15/17 09:07 Dose: 0.5 mg Methylprednisolone Sodium Succinate (Solu-Medrol -) 20 mg IVPUSH DAILY [facility] Last Admin: 06/15/17 09:07 Dose: 20 mg Nitroglycerin (Nitro-Bid 2% Paste -) 1 inch TD QID [facility] Last Admin: 06/15/17 09:08 Dose: 1 inch Ondansetron HCl (Zofran Injection) 4 mg IVPUSH Q8H PRN PRN Reason: NAUSEA AND/OR VOMITING Last Admin: 06/08/17 19:50 Dose: 4 mg Quetiapine Fumarate (Seroquel -) 25 mg PO HS [facility] Last Admin: 06/14/17 21:22 Dose: 25 mg Ranitidine HCl (Zantac -) 300 mg PO DAILY@1800 [facility] Last Admin: 06/14/17 17:19 Dose: 300 mg Tiotropium [place] (Spiriva -) 1 puff IH DAILY [facility] Last Admin: 06/15/17 09:08 Dose: 1 pfu - Objective Vital Signs: Vital Signs Temperature 98.2 F 06/15/17 08:00 Pulse Rate 87 06/15/17 08:00 Respiratory Rate 21 06/15/17 08:00 Blood Pressure 137/75 06/15/17 08:00 O2 Sat by Pulse Oximetry (%) 98 06/15/17 12:21 Constitutional: Yes: Calm Eyes: Yes: Conjunctiva Clear HENT: Yes: Atraumatic Cardiovascular: Yes: S1, S2 Respiratory: Yes: On Nasal O2 Genitourinary: Yes: WNL Musculoskeletal: Yes: Muscle Weakness Edema: Yes Edema: LLE: Trace, RLE: Trace Neurological: Yes: Oriented Psychiatric: Yes: Oriented Labs: CBC, BMP 06/15/17 05:05 06/15/17 05:05 INR, PTT INR 0.89 (0.82-1.09) 06/12/17 11:15 Problem List - Problems (1) Abdominal aortic aneurysm (AAA) Code(s): I71.4 - ABDOMINAL AORTIC ANEURYSM, WITHOUT RUPTURE Qualifiers: Presence of rupture: without rupture Qualified Code(s): I71.4 - Abdominal aortic aneurysm, without rupture (2) Stool guaiac positive Code(s): R19.5 - OTHER FECAL ABNORMALITIES (3) Atrial fibrillation Code(s): I48.91 - UNSPECIFIED ATRIAL FIBRILLATION Qualifiers: Atrial fibrillation type: persistent Qualified Code(s): I48.1 - Persistent atrial fibrillation (4) COPD (chronic obstructive pulmonary disease) Code(s): J44.9 - CHRONIC OBSTRUCTIVE PULMONARY DISEASE, UNSPECIFIED Qualifiers: Emphysema type: centrilobular (5) Chronic renal disease Code(s): N18.9 - CHRONIC KIDNEY DISEASE, UNSPECIFIED Qualifiers: Chronic kidney disease stage: stage 4 (severe) Qualified Code(s): N18.4 - Chronic kidney disease, stage 4 (severe) (6) Pneumothorax Code(s): J93.9 - PNEUMOTHORAX, UNSPECIFIED Qualifiers: Pneumothorax type: postprocedural Qualified Code(s): J95.811 - Postprocedural pneumothorax (7) Tobacco use Code(s): Z72.0 - TOBACCO USE Assessment/Plan Current Medications Generic Name Dose Route Start Last Admin Trade Name Freq PRN Reason Stop Dose Admin Acetaminophen 650 mg 06/02/17 19:24 06/10/17 23:15 Tylenol - PO 650 mg Q6H PRN Administration FEVER OR PAIN Acetaminophen 1,000 mg 06/02/17 22:51 06/03/17 05:02 Ofirmev Injection - IVPB 1,000 mg Q6H PRN Administration FEVER OR PAIN Apixaban 2.5 mg 06/14/17 11:00 06/15/17 09:07 Eliquis - PO 2.5 mg BID ANNA Administration Diltiazem HCl 30 mg 06/02/17 19:16 06/02/17 19:20 Cardizem Injection - IVPUSH 30 mg Q6H PRN Administration TACHYCARDIA Diltiazem HCl 180 mg 06/03/17 10:00 06/15/17 09:07 Cardizem Cd - PO 180 mg DAILY ANNA Administration Docusate Sodium 100 mg 06/02/17 22:00 06/15/17 05:34 Colace - PO Not Given TID ANNA Fluconazole 50 mls @ 50 mls/hr 06/09/17 19:15 06/15/17 09:07 Diflucan 100 Mg/Ns Premixed Ivpb - IVPB 50 mls/hr DAILY ANNA Administration Metronidazole 500 mg in 100 mls @ 100 mls/hr 06/12/17 14:00 06/15/17 09:07 Flagyl 500mg Premixed Ivpb - IVPB 100 mls/hr BID ANNA Administration Sodium Chloride 1,000 mls @ 75 mls/hr 06/13/17 19:56 06/15/17 01:39 Normal Saline - IV 75 mls/hr ASDIR ANNA Administration Piperacillin/Tazobactam/Dextrose 2.25 gm in 50 mls @ 100 mls/hr 06/14/17 10: 00 06/15/17 01:32 Zosyn 2.25gm Ivpb (Premix) IVPB 100 mls/hr Q8H-IV ANNA Administration Protocol Insulin Aspart 1 vial 06/10/17 16:30 06/15/17 11:38 Novolog Vial Sliding Scale - SQ Not Given ACHS [facility] Protocol Lorazepam 0.5 mg 06/12/17 20:38 06/15/17 09:07 Ativan Injection - IVPUSH 0.5 mg Q6H PRN Administration ANXIETY Methylprednisolone Sodium Succinate 20 mg 06/14/17 10:00 06/15/17 09:07 Solu-Medrol - IVPUSH 20 mg DAILY ANNA Administration Nitroglycerin 1 inch 06/11/17 10:00 06/15/17 09:08 Nitro-Bid 2% Paste - TD 1 inch QID ANNA Administration Ondansetron HCl 4 mg 06/08/17 19:34 06/08/17 19:50 Zofran Injection IVPUSH 4 mg Q8H PRN Administration NAUSEA AND/OR VOMITING Quetiapine Fumarate 25 mg 06/13/17 22:00 06/14/17 21:22 Seroquel - PO 25 mg HS ANNA Administration Ranitidine HCl 300 mg 06/03/17 18:30 06/14/17 17:19 Zantac - PO 300 mg DAILY@1800 ANNA Administration Tiotropium [place] 1 puff 06/03/17 10:00 06/15/17 09:08 Spiriva - IH 1 pfu DAILY ANNA Administration 1. CKD with acute component 2. AAA 3. lung cancer 4. HTN 5. a-fib 6. chol 7. hx hydropneumothorax 8. GI bleed 9. sepsis 10. leukocytosis 11. COLE 12. abdominal pain 13. hypoxia/erpiratory failure requiring bipap 14. hypermagnesemia requiring HD for removal Plan - can d/c shiley cath - repeat labs in am - mag improving - do not give any mag supplements or mag containing GI meds - can decrease fluids further - pt/rehab - discussed with surgery - repeat labs in am - cont bipap as needed - pulm follow up - monitor BP - will follow Dr Shearer
--- NOTE | 2017-06-15 16:16 | PN ---
Progress Note (short form) - Note Progress Note: alert on bipap no abdominal pain no diarrhea Vital Signs Period Temp Pulse Resp BP Sys/Sellers Pulse Ox Last 24 Hr 97.4 F-98.8 F 87-95 18-21 125-137/64-75 92-100 cor-rrr lungs decreased bs left base abd soft,nt ext no edema CBC, BMP 06/15/17 05:05 06/15/17 05:05 Microbiology 06/11/17 12:25 Blood - Peripheral Venous Blood Culture - Preliminary NO GROWTH OBTAINED AFTER 96 HOURS, INCUBATION TO CONTINUE FOR 1 DAYS. 06/11/17 12:36 Blood - Peripheral Venous Blood Culture - Preliminary NO GROWTH OBTAINED AFTER 96 HOURS, INCUBATION TO CONTINUE FOR 1 DAYS. 06/14/17 06:15 Stool Clostridium difficile Antigen (YOLI) - Final 06/14/17 06:15 Stool Clostridium difficile Toxin Assay - Final 06/05/17 13:05 Blood - Peripheral Venous Blood Culture - Final NO GROWTH AFTER 5 DAYS INCUBATION 06/05/17 12:58 Blood - Peripheral Venous Blood Culture - Final NO GROWTH AFTER 5 DAYS INCUBATION Current Medications Acetaminophen (Tylenol -) 650 mg PO Q6H PRN PRN Reason: FEVER OR PAIN Last Admin: 06/10/17 23:15 Dose: 650 mg Acetaminophen (Ofirmev Injection -) 1,000 mg IVPB Q6H PRN PRN Reason: FEVER OR PAIN Last Admin: 06/03/17 05:02 Dose: 1,000 mg Apixaban (Eliquis -) 2.5 mg PO BID [facility] Last Admin: 06/15/17 09:07 Dose: 2.5 mg Diltiazem HCl (Cardizem Injection -) 30 mg IVPUSH Q6H PRN PRN Reason: TACHYCARDIA Last Admin: 06/02/17 19:20 Dose: 30 mg Diltiazem HCl (Cardizem Cd -) 180 mg PO DAILY [facility] Last Admin: 06/15/17 09:07 Dose: 180 mg Docusate Sodium (Colace -) 100 mg PO TID [facility] Last Admin: 06/15/17 13:33 Dose: Not Given Fluconazole (Diflucan 100 Mg/Ns Premixed Ivpb -) 50 mls @ 50 mls/hr IVPB DAILY [facility] Last Admin: 06/15/17 09:07 Dose: 50 mls/hr Metronidazole (Flagyl 500mg Premixed Ivpb -) 500 mg in 100 mls @ 100 mls/hr IVPB BID [facility] Last Admin: 06/15/17 09:07 Dose: 100 mls/hr Piperacillin/Tazobactam/Dextrose (Zosyn 2.25gm Ivpb (Premix)) 2.25 gm in 50 mls @ 100 mls/hr IVPB Q8H-IV ANNA PRN Reason: Protocol Last Admin: 06/15/17 13:32 Dose: 100 mls/hr Sodium Chloride (Normal Saline -) 1,000 mls @ 42 mls/hr IV ASDIR [facility] Last Admin: 06/15/17 13:37 Dose: 42 mls/hr Insulin Aspart (Novolog Vial Sliding Scale -) 1 vial SQ ACHS [facility] PRN Reason: Protocol Last Admin: 06/15/17 11:38 Dose: Not Given Lorazepam (Ativan Injection -) 0.5 mg IVPUSH Q6H PRN PRN Reason: ANXIETY Last Admin: 06/15/17 09:07 Dose: 0.5 mg Methylprednisolone Sodium Succinate (Solu-Medrol -) 20 mg IVPUSH DAILY [facility] Last Admin: 06/15/17 09:07 Dose: 20 mg Nitroglycerin (Nitro-Bid 2% Paste -) 1 inch TD QID [facility] Last Admin: 06/15/17 14:35 Dose: 1 inch Ondansetron HCl (Zofran Injection) 4 mg IVPUSH Q8H PRN PRN Reason: NAUSEA AND/OR VOMITING Last Admin: 06/08/17 19:50 Dose: 4 mg Quetiapine Fumarate (Seroquel -) 25 mg PO HS [facility] Last Admin: 06/14/17 21:22 Dose: 25 mg Ranitidine HCl (Zantac -) 300 mg PO DAILY@1800 [facility] Last Admin: 06/14/17 17:19 Dose: 300 mg Tiotropium [place] (Spiriva -) 1 puff IH DAILY [facility] Last Admin: 06/15/17 09:08 Dose: 1 pfu a/p clinically improved on zosyn/flagyl, switch flagyl to po no further diarrhea abdominal pain resolved padmini esophagits- on diflucan s/p EVAR12/6 s/p LLL lobectomy 03/06/2017 copd ckd Problem List - Problems (1) COPD exacerbation Code(s): J44.1 - CHRONIC OBSTRUCTIVE PULMONARY DISEASE W (ACUTE) EXACERBATION (2) History of endovascular stent graft for abdominal aortic aneurysm (AAA) Code(s): Z95.828 - PRESENCE OF OTHER VASCULAR IMPLANTS AND GRAFTS (3) S/P lobectomy of lung Code(s): Z90.2 - ACQUIRED ABSENCE OF LUNG [PART OF]
--- NOTE | 2017-06-15 16:39 | PN ---
Progress Note, Physician Chief Complaint: awake alert feeling better - Current Medication List Current Medications: Active Medications Acetaminophen (Tylenol -) 650 mg PO Q6H PRN PRN Reason: FEVER OR PAIN Last Admin: 06/10/17 23:15 Dose: 650 mg Acetaminophen (Ofirmev Injection -) 1,000 mg IVPB Q6H PRN PRN Reason: FEVER OR PAIN Last Admin: 06/03/17 05:02 Dose: 1,000 mg Apixaban (Eliquis -) 2.5 mg PO BID [facility] Last Admin: 06/15/17 09:07 Dose: 2.5 mg Diltiazem HCl (Cardizem Injection -) 30 mg IVPUSH Q6H PRN PRN Reason: TACHYCARDIA Last Admin: 06/02/17 19:20 Dose: 30 mg Diltiazem HCl (Cardizem Cd -) 180 mg PO DAILY [facility] Last Admin: 06/15/17 09:07 Dose: 180 mg Docusate Sodium (Colace -) 100 mg PO TID [facility] Last Admin: 06/15/17 13:33 Dose: Not Given Fluconazole (Diflucan 100 Mg/Ns Premixed Ivpb -) 50 mls @ 50 mls/hr IVPB DAILY [facility] Last Admin: 06/15/17 09:07 Dose: 50 mls/hr Piperacillin/Tazobactam/Dextrose (Zosyn 2.25gm Ivpb (Premix)) 2.25 gm in 50 mls @ 100 mls/hr IVPB Q8H-IV ANNA PRN Reason: Protocol Last Admin: 06/15/17 13:32 Dose: 100 mls/hr Sodium Chloride (Normal Saline -) 1,000 mls @ 42 mls/hr IV ASDIR [facility] Last Admin: 06/15/17 13:37 Dose: 42 mls/hr Insulin Aspart (Novolog Vial Sliding Scale -) 1 vial SQ ACHS ANNA PRN Reason: Protocol Last Admin: 06/15/17 11:38 Dose: Not Given Lorazepam (Ativan Injection -) 0.5 mg IVPUSH Q6H PRN PRN Reason: ANXIETY Last Admin: 06/15/17 09:07 Dose: 0.5 mg Methylprednisolone Sodium Succinate (Solu-Medrol -) 20 mg IVPUSH DAILY [facility] Last Admin: 06/15/17 09:07 Dose: 20 mg Metronidazole (Flagyl -) 500 mg PO TID [facility] Nitroglycerin (Nitro-Bid 2% Paste -) 1 inch TD QID [facility] Last Admin: 06/15/17 14:35 Dose: 1 inch Ondansetron HCl (Zofran Injection) 4 mg IVPUSH Q8H PRN PRN Reason: NAUSEA AND/OR VOMITING Last Admin: 06/08/17 19:50 Dose: 4 mg Quetiapine Fumarate (Seroquel -) 25 mg PO HS [facility] Last Admin: 06/14/17 21:22 Dose: 25 mg Ranitidine HCl (Zantac -) 300 mg PO DAILY@1800 [facility] Last Admin: 06/14/17 17:19 Dose: 300 mg Tiotropium [place] (Spiriva -) 1 puff IH DAILY [facility] Last Admin: 06/15/17 09:08 Dose: 1 pfu - Objective Vital Signs: Vital Signs Temperature 98.6 F 06/15/17 14:00 Pulse Rate 94 H 06/15/17 14:00 Respiratory Rate 21 06/15/17 08:00 Blood Pressure 126/74 06/15/17 14:00 O2 Sat by Pulse Oximetry (%) 98 06/15/17 12:21 Constitutional: Yes: Mild Distress Eyes: Yes: WNL HENT: Yes: WNL Neck: Yes: WNL Cardiovascular: Yes: WNL Respiratory: Yes: On Nasal O2, Poor Air Entry Gastrointestinal: Yes: WNL Genitourinary: Yes: WNL Musculoskeletal: Yes: Muscle Weakness Extremities: Yes: WNL Edema: No Peripheral Pulses WNL: Yes Integumentary: Yes: WNL Wound/Incision: Yes: Clean/Dry Neurological: Yes: WNL ...Motor Strength: LLE (weakness), RLE Psychiatric: Yes: WNL Labs: CBC, BMP 06/15/17 05:05 06/15/17 05:05 INR, PTT INR 0.89 (0.82-1.09) 06/12/17 11:15 Problem List - Problems (1) Melena Code(s): K92.1 - MELENA (2) Stool guaiac positive Code(s): R19.5 - OTHER FECAL ABNORMALITIES (3) Abdominal aneurysm Code(s): I71.4 - ABDOMINAL AORTIC ANEURYSM, WITHOUT RUPTURE (4) Atrial fibrillation Code(s): I48.91 - UNSPECIFIED ATRIAL FIBRILLATION Qualifiers: Atrial fibrillation type: persistent Qualified Code(s): I48.1 - Persistent atrial fibrillation (5) COPD (chronic obstructive pulmonary disease) Code(s): J44.9 - CHRONIC OBSTRUCTIVE PULMONARY DISEASE, UNSPECIFIED Qualifiers: Emphysema type: centrilobular (6) Chronic renal disease Code(s): N18.9 - CHRONIC KIDNEY DISEASE, UNSPECIFIED Qualifiers: Chronic kidney disease stage: stage 4 (severe) Qualified Code(s): N18.4 - Chronic kidney disease, stage 4 (severe) (7) Constipation Code(s): K59.00 - CONSTIPATION, UNSPECIFIED (8) Lung malignancy Code(s): C34.90 - MALIGNANT NEOPLASM OF UNSP PART OF UNSP BRONCHUS OR LUNG Qualifiers: Laterality: left Assessment/Plan continue abx per id will need aggresive physical therapy shiley to be removed oob to chair avoid nephrotoxic meds
[2017-06-15] MEDS: RANITIDINE HCL 150 MG TABLET (FP) PO SCH (17:06)
[2017-06-15] MEDS: QUEtiapine FUMARATE 25 MG TABLET (FP) PO SCH (21:35)
[2017-06-15] MEDS: metroNIDAZOLE 250 MG TABLET PO SCH (21:35)
[2017-06-16] MEDS: PIPERACILLIN/TAZOB 2.25 GM 2.25 GM/50 ML BAG IVPB SCH ×3 (01:57→17:29)
[2017-06-16] MEDS: DOCUSATE SODIUM 100 MG CAPSULE (FP) PO SCH ×3 (05:40→21:22)
[2017-06-16] MEDS: metroNIDAZOLE 250 MG TABLET PO SCH ×3 (05:40→21:23)
[2017-06-16] MEDS: INSULIN SLIDING SCALE (NOVOLOG) 1 VIAL SQ SCH ×4 (06:12→21:23)
[2017-06-16] MEDS: LORazepam 2 MG/ML SDV VIAL IVPUSH PRN ×3 (06:37→21:32)
--- NOTE | 2017-06-16 09:20 | PN ---
Progress Note, Physician Chief Complaint: abdominal pain History of Present Illness: 77 yo female PMH CKD, HTN, COPD and lung cancer s/p lobectomy ~3months ago, a- fib on Eliquis who presents to ED with c/o weakness, n/v and dark stools. She is found to have a AAA that has increased in size (5.4 to 5.8cm) during her hospitalization. She is now s/p and EVAR of the AAA on 05/31. She developed gradual worsening left abdominal pain that is now mostly resolved. She reports liquid BM, passing flatus. - Current Medication List Current Medications: Active Medications Acetaminophen (Tylenol -) 650 mg PO Q6H PRN PRN Reason: FEVER OR PAIN Last Admin: 06/10/17 23:15 Dose: 650 mg Acetaminophen (Ofirmev Injection -) 1,000 mg IVPB Q6H PRN PRN Reason: FEVER OR PAIN Last Admin: 06/03/17 05:02 Dose: 1,000 mg Apixaban (Eliquis -) 2.5 mg PO BID [facility] Last Admin: 06/15/17 21:35 Dose: 2.5 mg Diltiazem HCl (Cardizem Injection -) 30 mg IVPUSH Q6H PRN PRN Reason: TACHYCARDIA Last Admin: 06/02/17 19:20 Dose: 30 mg Diltiazem HCl (Cardizem Cd -) 180 mg PO DAILY [facility] Last Admin: 06/15/17 09:07 Dose: 180 mg Docusate Sodium (Colace -) 100 mg PO TID [facility] Last Admin: 06/16/17 05:40 Dose: Not Given Fluconazole (Diflucan 100 Mg/Ns Premixed Ivpb -) 50 mls @ 50 mls/hr IVPB DAILY [facility] Last Admin: 06/15/17 09:07 Dose: 50 mls/hr Piperacillin/Tazobactam/Dextrose (Zosyn 2.25gm Ivpb (Premix)) 2.25 gm in 50 mls @ 100 mls/hr IVPB Q8H-IV ANNA PRN Reason: Protocol Last Admin: 06/16/17 01:57 Dose: 100 mls/hr Sodium Chloride (Normal Saline -) 1,000 mls @ 42 mls/hr IV ASDIR [facility] Last Admin: 06/15/17 13:37 Dose: 42 mls/hr Insulin Aspart (Novolog Vial Sliding Scale -) 1 vial SQ ACHS ANNA PRN Reason: Protocol Last Admin: 06/16/17 06:12 Dose: Not Given Lorazepam (Ativan Injection -) 0.5 mg IVPUSH Q6H PRN PRN Reason: ANXIETY Last Admin: 06/16/17 06:37 Dose: 0.5 mg Methylprednisolone Sodium Succinate (Solu-Medrol -) 20 mg IVPUSH DAILY [facility] Last Admin: 06/15/17 09:07 Dose: 20 mg Metronidazole (Flagyl -) 500 mg PO TID [facility] Last Admin: 06/16/17 05:40 Dose: 500 mg Nitroglycerin (Nitro-Bid 2% Paste -) 1 inch TD QID [facility] Last Admin: 06/15/17 21:36 Dose: 1 inch Ondansetron HCl (Zofran Injection) 4 mg IVPUSH Q8H PRN PRN Reason: NAUSEA AND/OR VOMITING Last Admin: 06/08/17 19:50 Dose: 4 mg Quetiapine Fumarate (Seroquel -) 25 mg PO HS [facility] Last Admin: 06/15/17 21:35 Dose: 25 mg Ranitidine HCl (Zantac -) 300 mg PO DAILY@1800 [facility] Last Admin: 06/15/17 17:06 Dose: 300 mg Tiotropium [place] (Spiriva -) 1 puff IH DAILY [facility] Last Admin: 06/15/17 09:08 Dose: 1 pfu - Objective Vital Signs: Vital Signs Temperature 97.8 F 06/16/17 07:30 Pulse Rate 97 H 06/16/17 07:30 Respiratory Rate 18 06/16/17 07:30 Blood Pressure 152/85 06/16/17 07:30 O2 Sat by Pulse Oximetry (%) 98 06/16/17 01:34 Vital Signs Period Temp Pulse Resp BP Sys/Sellers Pulse Ox Last 24 Hr 97.8 F-98.8 F 91-108 18-20 126-152/60-85 98-100 Intake & Output 06/15/17 06/16/17 06/16/17 23:59 07:59 15:59 Intake Total 360 872 Balance 360 872 Intake: IV 462 Normal Saline - 1,000 ml 462 @ 42 mls/hr IV ASDIR [facility] Rx#:[id number] IVPB 50 Oral 360 360 Other: Voiding Method Incontinent # Unmeasured Voids Void 2 2 Constitutional: Yes: Well Nourished, No Distress, Calm Eyes: Yes: Conjunctiva Clear, EOM Intact HENT: Yes: Atraumatic, Normocephalic Neck: Yes: Supple, Trachea Midline Respiratory: Yes: Regular, CTA Bilaterally Gastrointestinal: Yes: Normal Bowel Sounds, Soft. No: Tenderness, Tenderness, Epigastrium, Tenderness, Rebound ...Rectal Exam: Yes: Deferred Genitourinary: No: CVA Tenderness - Left, CVA Tenderness - Right Musculoskeletal: Yes: Muscle Weakness (B/L LE) Edema: Yes Peripheral Pulses WNL: Yes Peripheral Pulses: Left Doralis Pedis: 2+, Right Dorsalis Pedis: 2+ Integumentary: No: Rash Neurological: Yes: Alert, Oriented Psychiatric: Yes: Alert, Oriented Labs: CBC, BMP 06/15/17 05:05 06/15/17 05:05 INR, PTT INR 0.89 (0.82-1.09) 06/12/17 11:15 Problem List - Problems (1) Colitis Assessment/Plan: 77 yo female MMP with abdominal pain infectious versus ischemic colitis is most likely, Antigen Positive, abdominal pain improved, not likely acute bowel ischemia based on imaging, and serial clinical exams. Abdominal pain resolved, tolerating full liquid diet. Operative intervention at this point is not indicated. advance diet as tolerated empiric antibiotics continue to trend CBC f/u endoscopy reports will follow peripherally Code(s): K52.9 - NONINFECTIVE GASTROENTERITIS AND COLITIS, UNSPECIFIED (2) CHF (congestive heart failure) Code(s): I50.9 - HEART FAILURE, UNSPECIFIED (3) COPD exacerbation Code(s): J44.1 - CHRONIC OBSTRUCTIVE PULMONARY DISEASE W (ACUTE) EXACERBATION (4) History of endovascular stent graft for abdominal aortic aneurysm (AAA) Code(s): Z95.828 - PRESENCE OF OTHER VASCULAR IMPLANTS AND GRAFTS (5) Melena Code(s): K92.1 - MELENA (6) Atrial fibrillation Code(s): I48.91 - UNSPECIFIED ATRIAL FIBRILLATION Qualifiers: Atrial fibrillation type: persistent Qualified Code(s): I48.1 - Persistent atrial fibrillation (7) Lung malignancy Code(s): C34.90 - MALIGNANT NEOPLASM OF UNSP PART OF UNSP BRONCHUS OR LUNG Qualifiers: Laterality: left
[2017-06-16] MEDS: NITROGLYCERIN 2% OINTMENT - 1GM PACKET TD SCH ×4 (10:01→21:23)
[2017-06-16] MEDS: APIXABAN 2.5 MG TABLET PO SCH ×2 (10:01→21:23)
[2017-06-16] MEDS: methylPREDNISolone NA SUCC 40 MG/1 ML VIAL IVPUSH SCH (10:01)
[2017-06-16] MEDS: TIOTROPIUM BROMIDE 18 MCG/INH (DEVICE W/ 5 CAPSULES) IH SCH (10:20)
[2017-06-16 11:24] LABS: ANION GAP 8 (8-16); BLOOD UREA NITROGEN 71 mg/dL (7-18); CALCIUM 7.7 mg/dL (8.5-10.1); CHLORIDE 105 mmol/L (98-107); CO2 29 mmol/L (21-32); CREATININE 2.8 mg/dL (0.55-1.02); GLUCOSE,RANDOM 107 mg/dL (74-106); MAGNESIUM 4.1 mg/dL (1.8-2.4); POTASSIUM 4.9 mmol/L (3.5-5.1); SODIUM 142 mmol/L (136-145)
--- NOTE | 2017-06-16 11:41 | PN ---
Progress Note, Physician Chief Complaint: AWAKE WANTS TOLEAVE NO CHEST PAIN +SOB - Current Medication List Current Medications: Active Medications Acetaminophen (Tylenol -) 650 mg PO Q6H PRN PRN Reason: FEVER OR PAIN Last Admin: 06/10/17 23:15 Dose: 650 mg Acetaminophen (Ofirmev Injection -) 1,000 mg IVPB Q6H PRN PRN Reason: FEVER OR PAIN Last Admin: 06/03/17 05:02 Dose: 1,000 mg Apixaban (Eliquis -) 2.5 mg PO BID [facility] Last Admin: 06/16/17 10:01 Dose: 2.5 mg Diltiazem HCl (Cardizem Injection -) 30 mg IVPUSH Q6H PRN PRN Reason: TACHYCARDIA Last Admin: 06/02/17 19:20 Dose: 30 mg Diltiazem HCl (Cardizem Cd -) 180 mg PO DAILY [facility] Last Admin: 06/16/17 10:01 Dose: 180 mg Docusate Sodium (Colace -) 100 mg PO TID [facility] Last Admin: 06/16/17 05:40 Dose: Not Given Fluconazole (Diflucan 100 Mg/Ns Premixed Ivpb -) 50 mls @ 50 mls/hr IVPB DAILY [facility] Last Admin: 06/15/17 09:07 Dose: 50 mls/hr Piperacillin/Tazobactam/Dextrose (Zosyn 2.25gm Ivpb (Premix)) 2.25 gm in 50 mls @ 100 mls/hr IVPB Q8H-IV ANNA PRN Reason: Protocol Last Admin: 06/16/17 10:47 Dose: 100 mls/hr Sodium Chloride (Normal Saline -) 1,000 mls @ 42 mls/hr IV ASDIR [facility] Last Admin: 06/15/17 13:37 Dose: 42 mls/hr Insulin Aspart (Novolog Vial Sliding Scale -) 1 vial SQ ACHS ANNA PRN Reason: Protocol Last Admin: 06/16/17 06:12 Dose: Not Given Lorazepam (Ativan Injection -) 0.5 mg IVPUSH Q6H PRN PRN Reason: ANXIETY Last Admin: 06/16/17 06:37 Dose: 0.5 mg Methylprednisolone Sodium Succinate (Solu-Medrol -) 20 mg IVPUSH DAILY [facility] Last Admin: 06/16/17 10:01 Dose: 20 mg Metronidazole (Flagyl -) 500 mg PO TID [facility] Last Admin: 06/16/17 05:40 Dose: 500 mg Nitroglycerin (Nitro-Bid 2% Paste -) 1 inch TD QID [facility] Last Admin: 06/16/17 10:01 Dose: 1 inch Ondansetron HCl (Zofran Injection) 4 mg IVPUSH Q8H PRN PRN Reason: NAUSEA AND/OR VOMITING Last Admin: 06/08/17 19:50 Dose: 4 mg Quetiapine Fumarate (Seroquel -) 25 mg PO HS [facility] Last Admin: 06/15/17 21:35 Dose: 25 mg Ranitidine HCl (Zantac -) 300 mg PO DAILY@1800 [facility] Last Admin: 06/15/17 17:06 Dose: 300 mg Tiotropium [place] (Spiriva -) 1 puff IH DAILY [facility] Last Admin: 06/16/17 10:20 Dose: Not Given - Objective Vital Signs: Vital Signs Temperature 97.8 F 06/16/17 07:30 Pulse Rate 97 H 06/16/17 07:30 Respiratory Rate 18 06/16/17 07:30 Blood Pressure 152/85 06/16/17 07:30 O2 Sat by Pulse Oximetry (%) 98 06/16/17 01:34 Constitutional: Yes: Mild Distress Eyes: Yes: WNL HENT: Yes: WNL Neck: Yes: WNL Cardiovascular: Yes: Pulse Irregular Respiratory: Yes: On Nasal O2, Poor Air Entry Gastrointestinal: Yes: WNL Genitourinary: Yes: Other Musculoskeletal: Yes: Muscle Weakness Extremities: Yes: WNL Edema: Yes Edema: LLE: Trace, RLE: Trace Peripheral Pulses WNL: Yes Integumentary: Yes: WNL Wound/Incision: Yes: Other Neurological: Yes: Unsteady Gait ...Motor Strength: LLE, RLE Psychiatric: Yes: Agitated Labs: CBC, BMP 06/15/17 05:05 INR, PTT INR 0.89 (0.82-1.09) 06/12/17 11:15 Problem List - Problems (1) Melena Code(s): K92.1 - MELENA (2) Stool guaiac positive Code(s): R19.5 - OTHER FECAL ABNORMALITIES (3) Abdominal aneurysm Code(s): I71.4 - ABDOMINAL AORTIC ANEURYSM, WITHOUT RUPTURE (4) Atrial fibrillation Code(s): I48.91 - UNSPECIFIED ATRIAL FIBRILLATION Qualifiers: Atrial fibrillation type: persistent Qualified Code(s): I48.1 - Persistent atrial fibrillation (5) COPD (chronic obstructive pulmonary disease) Code(s): J44.9 - CHRONIC OBSTRUCTIVE PULMONARY DISEASE, UNSPECIFIED Qualifiers: Emphysema type: centrilobular (6) Chronic renal disease Code(s): N18.9 - CHRONIC KIDNEY DISEASE, UNSPECIFIED Qualifiers: Chronic kidney disease stage: stage 4 (severe) Qualified Code(s): N18.4 - Chronic kidney disease, stage 4 (severe) (7) Constipation Code(s): K59.00 - CONSTIPATION, UNSPECIFIED (8) Lung malignancy Code(s): C34.90 - MALIGNANT NEOPLASM OF UNSP PART OF UNSP BRONCHUS OR LUNG Qualifiers: Laterality: left Assessment/Plan TRANSFER TO SNF TOMORROW OR WEDNESDAY WILL NEED NEPHROLOGY AND ID TO CLEAR PATIENT NEEDS REHAB/PT BECAUSE OF ATROPHY OF MUSCLES SETTING IN. CHECK LABS DVT PROPHYLACIS RESTART ELIQUIS WITH AFIB
--- NOTE | 2017-06-16 11:46 | PN ---
Progress Note, Physician History of Present Illness: pulmonary alert,-resp distress.+ BILATERAL LOWER EXT WEAKNESS - Current Medication List Current Medications: Active Medications Acetaminophen (Tylenol -) 650 mg PO Q6H PRN PRN Reason: FEVER OR PAIN Last Admin: 06/10/17 23:15 Dose: 650 mg Acetaminophen (Ofirmev Injection -) 1,000 mg IVPB Q6H PRN PRN Reason: FEVER OR PAIN Last Admin: 06/03/17 05:02 Dose: 1,000 mg Apixaban (Eliquis -) 2.5 mg PO BID [facility] Last Admin: 06/16/17 10:01 Dose: 2.5 mg Diltiazem HCl (Cardizem Injection -) 30 mg IVPUSH Q6H PRN PRN Reason: TACHYCARDIA Last Admin: 06/02/17 19:20 Dose: 30 mg Diltiazem HCl (Cardizem Cd -) 180 mg PO DAILY [facility] Last Admin: 06/16/17 10:01 Dose: 180 mg Docusate Sodium (Colace -) 100 mg PO TID [facility] Last Admin: 06/16/17 05:40 Dose: Not Given Fluconazole (Diflucan 100 Mg/Ns Premixed Ivpb -) 50 mls @ 50 mls/hr IVPB DAILY [facility] Last Admin: 06/15/17 09:07 Dose: 50 mls/hr Piperacillin/Tazobactam/Dextrose (Zosyn 2.25gm Ivpb (Premix)) 2.25 gm in 50 mls @ 100 mls/hr IVPB Q8H-IV ANNA PRN Reason: Protocol Last Admin: 06/16/17 10:47 Dose: 100 mls/hr Sodium Chloride (Normal Saline -) 1,000 mls @ 42 mls/hr IV ASDIR [facility] Last Admin: 06/15/17 13:37 Dose: 42 mls/hr Insulin Aspart (Novolog Vial Sliding Scale -) 1 vial SQ ACHS ANNA PRN Reason: Protocol Last Admin: 06/16/17 06:12 Dose: Not Given Lorazepam (Ativan Injection -) 0.5 mg IVPUSH Q6H PRN PRN Reason: ANXIETY Last Admin: 06/16/17 06:37 Dose: 0.5 mg Methylprednisolone Sodium Succinate (Solu-Medrol -) 20 mg IVPUSH DAILY [facility] Last Admin: 06/16/17 10:01 Dose: 20 mg Metronidazole (Flagyl -) 500 mg PO TID [facility] Last Admin: 06/16/17 05:40 Dose: 500 mg Nitroglycerin (Nitro-Bid 2% Paste -) 1 inch TD QID [facility] Last Admin: 06/16/17 10:01 Dose: 1 inch Ondansetron HCl (Zofran Injection) 4 mg IVPUSH Q8H PRN PRN Reason: NAUSEA AND/OR VOMITING Last Admin: 06/08/17 19:50 Dose: 4 mg Quetiapine Fumarate (Seroquel -) 25 mg PO HS [facility] Last Admin: 06/15/17 21:35 Dose: 25 mg Ranitidine HCl (Zantac -) 300 mg PO DAILY@1800 [facility] Last Admin: 06/15/17 17:06 Dose: 300 mg Tiotropium [place] (Spiriva -) 1 puff IH DAILY [facility] Last Admin: 06/16/17 10:20 Dose: Not Given - Objective Vital Signs: Vital Signs Temperature 97.8 F 06/16/17 07:30 Pulse Rate 97 H 06/16/17 07:30 Respiratory Rate 18 06/16/17 07:30 Blood Pressure 152/85 06/16/17 07:30 O2 Sat by Pulse Oximetry (%) 98 06/16/17 01:34 Constitutional: Yes: Calm, Thin Eyes: Yes: WNL HENT: Yes: WNL Neck: Yes: WNL Cardiovascular: Yes: Pulse Irregular, S1, S2 Respiratory: Yes: Diminished Gastrointestinal: Yes: Normal Bowel Sounds, Soft Musculoskeletal: Yes: Muscle Weakness (LOWER EXT WEAKNESS) Extremities: Yes: WNL Edema: Yes Labs: CBC, BMP 06/15/17 05:05 INR, PTT INR 0.89 (0.82-1.09) 06/12/17 11:15 Assessment/Plan A/P S/P Acute hypoxemic respiratory failure AAA S/P EVAR Lung Ca s/p LLL lobectomy COPD Atrial Fibrillation Acute on chronic renal failure Pulmonary Htn Anemia Weakness - steroid taper - HD as per renal - inhaled bronchodilators - incentive spirometry - DVT prophylaxis - strict I+Os - pt evaluation DR CRUZ
[2017-06-16] MEDS: FLUCONAZOLE 100 MG/NS 50 ML IVPB SCH (11:51)
[2017-06-16] MEDS: SODIUM CHLORIDE 1,000 ML IV SCH (14:24)
[2017-06-16] MEDS ORDERED: FUROSEMIDE 40 MG TABLET (FP) PO ONE (16:00)
[2017-06-16] MEDS: RANITIDINE HCL 150 MG TABLET (FP) PO SCH (17:30)
--- NOTE | 2017-06-16 17:37 | PN ---
Progress Note, Physician History of Present Illness: Pt seen and examined at bedside. She is asking to go home. She still requires oxygen. She denies chest pain. - Current Medication List Current Medications: Active Medications Acetaminophen (Tylenol -) 650 mg PO Q6H PRN PRN Reason: FEVER OR PAIN Last Admin: 06/10/17 23:15 Dose: 650 mg Acetaminophen (Ofirmev Injection -) 1,000 mg IVPB Q6H PRN PRN Reason: FEVER OR PAIN Last Admin: 06/03/17 05:02 Dose: 1,000 mg Apixaban (Eliquis -) 2.5 mg PO BID [facility] Last Admin: 06/16/17 10:01 Dose: 2.5 mg Diltiazem HCl (Cardizem Injection -) 30 mg IVPUSH Q6H PRN PRN Reason: TACHYCARDIA Last Admin: 06/02/17 19:20 Dose: 30 mg Diltiazem HCl (Cardizem Cd -) 180 mg PO DAILY [facility] Last Admin: 06/16/17 10:01 Dose: 180 mg Docusate Sodium (Colace -) 100 mg PO TID [facility] Last Admin: 06/16/17 14:24 Dose: Not Given Fluconazole (Diflucan 100 Mg/Ns Premixed Ivpb -) 50 mls @ 50 mls/hr IVPB DAILY [facility] Last Admin: 06/16/17 11:51 Dose: 50 mls/hr Piperacillin/Tazobactam/Dextrose (Zosyn 2.25gm Ivpb (Premix)) 2.25 gm in 50 mls @ 100 mls/hr IVPB Q8H-IV ANNA PRN Reason: Protocol Last Admin: 06/16/17 17:29 Dose: 100 mls/hr Insulin Aspart (Novolog Vial Sliding Scale -) 1 vial SQ ACHS ANNA PRN Reason: Protocol Last Admin: 06/16/17 16:30 Dose: 2 units Lorazepam (Ativan Injection -) 0.5 mg IVPUSH Q6H PRN PRN Reason: ANXIETY Last Admin: 06/16/17 12:38 Dose: 0.5 mg Methylprednisolone Sodium Succinate (Solu-Medrol -) 20 mg IVPUSH DAILY [facility] Last Admin: 06/16/17 10:01 Dose: 20 mg Metronidazole (Flagyl -) 500 mg PO TID [facility] Last Admin: 06/16/17 14:26 Dose: 500 mg Nitroglycerin (Nitro-Bid 2% Paste -) 1 inch TD QID [facility] Last Admin: 06/16/17 17:29 Dose: 1 inch Ondansetron HCl (Zofran Injection) 4 mg IVPUSH Q8H PRN PRN Reason: NAUSEA AND/OR VOMITING Last Admin: 06/08/17 19:50 Dose: 4 mg Quetiapine Fumarate (Seroquel -) 25 mg PO HS [facility] Last Admin: 06/15/17 21:35 Dose: 25 mg Ranitidine HCl (Zantac -) 300 mg PO DAILY@1800 [facility] Last Admin: 06/16/17 17:30 Dose: Not Given Tiotropium [place] (Spiriva -) 1 puff IH DAILY [facility] Last Admin: 06/16/17 10:20 Dose: Not Given - Objective Vital Signs: Vital Signs Temperature 97.4 F L 06/16/17 14:14 Pulse Rate 97 H 06/16/17 14:14 Respiratory Rate 20 06/16/17 14:14 Blood Pressure 149/78 06/16/17 14:14 O2 Sat by Pulse Oximetry (%) 98 06/16/17 01:34 Constitutional: Yes: Anxious Eyes: Yes: Conjunctiva Clear HENT: Yes: Atraumatic Cardiovascular: Yes: S1, S2 Respiratory: Yes: On Venti-Mask Gastrointestinal: Yes: Soft Genitourinary: Yes: WNL Musculoskeletal: Yes: Muscle Weakness Edema: Yes Edema: LLE: 1+, RLE: 1+ Neurological: Yes: Oriented Psychiatric: Yes: Oriented, Agitated Labs: CBC, BMP 06/15/17 05:05 06/16/17 10:00 INR, PTT INR 0.89 (0.82-1.09) 06/12/17 11:15 Problem List - Problems (1) Abdominal aortic aneurysm (AAA) Code(s): I71.4 - ABDOMINAL AORTIC ANEURYSM, WITHOUT RUPTURE Qualifiers: Presence of rupture: without rupture Qualified Code(s): I71.4 - Abdominal aortic aneurysm, without rupture (2) Stool guaiac positive Code(s): R19.5 - OTHER FECAL ABNORMALITIES (3) Atrial fibrillation Code(s): I48.91 - UNSPECIFIED ATRIAL FIBRILLATION Qualifiers: Atrial fibrillation type: persistent Qualified Code(s): I48.1 - Persistent atrial fibrillation (4) COPD (chronic obstructive pulmonary disease) Code(s): J44.9 - CHRONIC OBSTRUCTIVE PULMONARY DISEASE, UNSPECIFIED Qualifiers: Emphysema type: centrilobular (5) Chronic renal disease Code(s): N18.9 - CHRONIC KIDNEY DISEASE, UNSPECIFIED Qualifiers: Chronic kidney disease stage: stage 4 (severe) Qualified Code(s): N18.4 - Chronic kidney disease, stage 4 (severe) (6) Pneumothorax Code(s): J93.9 - PNEUMOTHORAX, UNSPECIFIED Qualifiers: Pneumothorax type: postprocedural Qualified Code(s): J95.811 - Postprocedural pneumothorax (7) Tobacco use Code(s): Z72.0 - TOBACCO USE Assessment/Plan Current Medications Generic Name Dose Route Start Last Admin Trade Name Freq PRN Reason Stop Dose Admin Acetaminophen 650 mg 06/02/17 19:24 06/10/17 23:15 Tylenol - PO 650 mg Q6H PRN Administration FEVER OR PAIN Acetaminophen 1,000 mg 06/02/17 22:51 06/03/17 05:02 Ofirmev Injection - IVPB 1,000 mg Q6H PRN Administration FEVER OR PAIN Apixaban 2.5 mg 06/14/17 11:00 06/16/17 10:01 Eliquis - PO 2.5 mg BID ANNA Administration Diltiazem HCl 30 mg 06/02/17 19:16 06/02/17 19:20 Cardizem Injection - IVPUSH 30 mg Q6H PRN Administration TACHYCARDIA Diltiazem HCl 180 mg 06/03/17 10:00 06/16/17 10:01 Cardizem Cd - PO 180 mg DAILY ANNA Administration Docusate Sodium 100 mg 06/02/17 22:00 06/16/17 14:24 Colace - PO Not Given TID ANNA Fluconazole 50 mls @ 50 mls/hr 06/09/17 19:15 06/16/17 11:51 Diflucan 100 Mg/Ns Premixed Ivpb - IVPB 50 mls/hr DAILY ANNA Administration Piperacillin/Tazobactam/Dextrose 2.25 gm in 50 mls @ 100 mls/hr 06/14/17 10: 00 06/16/17 17:29 Zosyn 2.25gm Ivpb (Premix) IVPB 100 mls/hr Q8H-IV ANNA Administration Protocol Insulin Aspart 1 vial 06/10/17 16:30 06/16/17 16:30 Novolog Vial Sliding Scale - SQ 2 units ACHS ANNA Administration Protocol Lorazepam 0.5 mg 06/16/17 02:04 06/16/17 12:38 Ativan Injection - IVPUSH 0.5 mg Q6H PRN Administration ANXIETY Methylprednisolone Sodium Succinate 20 mg 06/14/17 10:00 06/16/17 10:01 Solu-Medrol - IVPUSH 20 mg DAILY ANNA Administration Metronidazole 500 mg 06/15/17 22:00 06/16/17 14:26 Flagyl - PO 500 mg TID ANNA Administration Nitroglycerin 1 inch 06/11/17 10:00 06/16/17 17:29 Nitro-Bid 2% Paste - TD 1 inch QID ANNA Administration Ondansetron HCl 4 mg 06/08/17 19:34 06/08/17 19:50 Zofran Injection IVPUSH 4 mg Q8H PRN Administration NAUSEA AND/OR VOMITING Quetiapine Fumarate 25 mg 06/13/17 22:00 06/15/17 21:35 Seroquel - PO 25 mg HS ANNA Administration Ranitidine HCl 300 mg 06/03/17 18:30 06/16/17 17:30 Zantac - PO Not Given DAILY@1800 [facility] Tiotropium [place] 1 puff 06/03/17 10:00 06/16/17 10:20 Spiriva - IH Not Given DAILY ANNA 1. CKD with acute component 2. AAA 3. lung cancer 4. HTN 5. a-fib 6. chol 7. hx hydropneumothorax 8. GI bleed 9. sepsis 10. leukocytosis 11. COLE 12. abdominal pain 13. hypoxia/erpiratory failure requiring bipap 14. hypermagnesemia requiring HD for removal Plan - stop fluids - will give a dose of lasix as she has edema - repeat labs in am - repeat magnesium level in am - steroid taper as tolerated - monitor pulse ox - cont bipap as needed - pulm follow up - monitor BP - will follow Dr Shearer
--- NOTE | 2017-06-16 18:43 | CONSULT ---
Consult Consult Specialty:: Endocrinology Referred by:: Dr Truong Reason for Consultation:: Hyperglycemia - History of Present Illness Chief Complaint: Abd Pain History of Present Illness: This is a 77 rabia with h/o CKD, HTN, smoker, COPD, and lung cancer s/p lobectomy ~3months ago , A Fib on [facility] who presented to ED with c/o weakness, n/v and dark stools. She is found to have a AAA that has increased in size (5.4 to 5.8cm )during her hospitalization. She had endovascular repair of the AAA on 06.02.17. Pt has been on IV steroids and blood sugar around 200s. Pt referred for management of hyperglycemia. Pt denies any h/o DM. Family h/o DM in grandmother. Pt eager to be discharged. - History Source History Provided By: Patient, Medical Record Limitations to Obtaining History: No Limitations - Past Medical History [employer]: No: Alzheimer's Cardio/Vascular: Yes: AFIB, Aneurysm, HTN, Mitral Insufficiency Pulmonary: Yes: COPD, Other (LUNG MASS) Gastrointestinal: Yes: GERD Hepatobiliary: No: Cirrhosis Renal/: Yes: Renal Failure ...: No Infectious Disease: No: AIDS Psych: No: Addictions Musculoskeletal: No: Bursitis Rheumatology: Yes: Other. No: Fibromyalgia ENT: No: Allergic Rhinitis Endocrine: Yes: Hyperparathyroidism (Hearing loss) - Past Surgical History Past Surgical History: Yes: Thoracotomy - Alcohol/Substance Use Hx Alcohol Use: No - Smoking History Smoking history: Current every day smoker Have you smoked in the past 12 months: Yes Aproximately how many cigarettes per day: 5 If you are a former smoker, when did you quit?: 1 week ago - Social History History of Recent Travel: No Home Medications - Allergies Allergies/Adverse Reactions: Allergies Allergy/AdvReac Type Severity Reaction Status Date / Time No Known Allergies Allergy Verified 05/25/17 11:50 - Home Medications Home Medications: Ambulatory Orders Lorazepam [Ativan] 0.5 mg PO HS 03/07/17 Acetaminophen [Tylenol .Regular Strength -] 650 mg PO Q4H PRN #0 tablet Budesonide/Formeterol Fumarate [SYMBICORT 160/4.5mcg -] 2 puff IH BID #1 inhaler 03/15/17 Diltiazem Cd [Cardizem Cd -] 180 mg PO DAILY #30 cap 03/15/17 Prednisone [Deltasone -] 40 mg PO DAILY #10 tablet 03/15/17 Apixaban [Eliquis] 2.5 mg PO HS 04/28/17 Family Disease History - Family Disease History Family Disease History: Diabetes: Grandparent Review of Systems - Review of Systems Constitutional: reports: Malaise, Weakness Eyes: reports: No Symptoms HENT: reports: No Symptoms Neck: reports: No Symptoms Cardiovascular: reports: No Symptoms Respiratory: reports: No Symptoms Gastrointestinal: reports: No Symptoms Genitourinary: reports: No Symptoms Neurological: reports: No Symptoms Physical Exam Vital Signs: Vital Signs Temperature 97.4 F L 06/16/17 14:14 Pulse Rate 97 H 06/16/17 14:14 Respiratory Rate 20 06/16/17 14:14 Blood Pressure 149/78 06/16/17 14:14 O2 Sat by Pulse Oximetry (%) 100 06/16/17 09:00 Constitutional: Yes: No Distress, Calm Eyes: Yes: Conjunctiva Clear, EOM Intact HENT: Yes: Atraumatic, Normocephalic Neck: Yes: Supple, Trachea Midline Cardiovascular: Yes: Pulse Irregular Respiratory: Yes: Regular, Diminished (decreased Breath sounds) Gastrointestinal: Yes: Normal Bowel Sounds, Soft Extremities: Yes: WNL Edema: Yes Labs: CBC, BMP 06/15/17 05:05 06/16/17 10:00 Problem List - Problems (1) Abdominal aortic aneurysm (AAA) Code(s): I71.4 - ABDOMINAL AORTIC ANEURYSM, WITHOUT RUPTURE Qualifiers: Presence of rupture: without rupture Qualified Code(s): I71.4 - Abdominal aortic aneurysm, without rupture (2) Abdominal pain Code(s): R10.9 - UNSPECIFIED ABDOMINAL PAIN (3) COPD exacerbation Code(s): J44.1 - CHRONIC OBSTRUCTIVE PULMONARY DISEASE W (ACUTE) EXACERBATION (4) S/P lobectomy of lung Code(s): Z90.2 - ACQUIRED ABSENCE OF LUNG [PART OF] (5) Atrial fibrillation Code(s): I48.91 - UNSPECIFIED ATRIAL FIBRILLATION Qualifiers: Atrial fibrillation type: persistent Qualified Code(s): I48.1 - Persistent atrial fibrillation Assessment/Plan AP: Hyperglycemia AAA s/P endovascular repair lung cancer s/P lobectomy HTN A Fib CKD BGM QACHS Novolog SS coverage HbA1c If blood sugar remains high after steroids are discontinued, will start Tradjenta 5mg QD or Januvia 25mg QD Will f/u
[2017-06-16] MEDS ORDERED: PT OWN MED DRAWER 7, Y5N ONE (20:57)
[2017-06-16] MEDS ORDERED: INSULIN (NOVOLOG) ASPART 100 UNITS/ML 10ML VIAL ONE (20:58)
[2017-06-16] MEDS: QUEtiapine FUMARATE 25 MG TABLET (FP) PO SCH (21:24)
[2017-06-17] MEDS: PIPERACILLIN/TAZOB 2.25 GM 2.25 GM/50 ML BAG IVPB SCH ×3 (01:12→18:49)
[2017-06-17] MEDS: DOCUSATE SODIUM 100 MG CAPSULE (FP) PO SCH ×3 (06:15→21:36)
[2017-06-17] MEDS: INSULIN SLIDING SCALE (NOVOLOG) 1 VIAL SQ SCH ×4 (06:15→21:45)
[2017-06-17] MEDS: metroNIDAZOLE 250 MG TABLET PO SCH ×3 (06:16→21:33)
[2017-06-17 07:09] LABS: HEMATOCRIT 31.2 % (32.4-45.2); HEMOGLOBIN 9.8 GM/dL (10.7-15.3); MCH 29.5 pg (25.7-33.7); MCHC 31.5 g/dl (32.0-36.0); MEAN CELL VOLUME 93.5 fl (80-96); MEAN PLT VOLUME 8.4 fl (7.5-11.1); PLATELET COUNT 246 K/MM3 (134-434); RBC 3.33 M/mm3 (3.60-5.2); RDW 15.3 % (11.6-15.6); WHITE BLOOD COUNT 29.6 K/mm3 (4.0-10.0)
[2017-06-17 07:14] LABS: ALBUMIN 2.2 g/dl (3.4-5.0); ANION GAP 11 (8-16); BLOOD UREA NITROGEN 80 mg/dL (7-18); CALCIUM 7.7 mg/dL (8.5-10.1); CHLORIDE 104 mmol/L (98-107); CO2 27 mmol/L (21-32); CREATININE 3.2 mg/dL (0.55-1.02); GLUCOSE,RANDOM 116 mg/dL (74-106); SGOT/AST 34 U/L (15-37); SGPT/ALT 59 U/L (12-78); SODIUM 142 mmol/L (136-145)
[2017-06-17 07:17] LABS: ALK PHOS 75 U/L (45-117); BILIRUBIN,TOTAL 0.5 mg/dL (0.2-1.0); TOT PROT 5.1 g/dl (6.4-8.2)
[2017-06-17] MEDS: methylPREDNISolone NA SUCC 40 MG/1 ML VIAL IVPUSH SCH (09:03)
[2017-06-17] MEDS: APIXABAN 2.5 MG TABLET PO SCH ×2 (09:03→21:33)
[2017-06-17] MEDS: TIOTROPIUM BROMIDE 18 MCG/INH (DEVICE W/ 5 CAPSULES) IH SCH (09:05)
[2017-06-17] MEDS: NITROGLYCERIN 2% OINTMENT - 1GM PACKET TD SCH (09:09)
--- NOTE | 2017-06-17 11:49 | PN ---
Progress Note, Physician Chief Complaint: AWAKE, UPSET SHE WANTS TO LEAVE STILL WEAK ON 02NC - Current Medication List Current Medications: Active Medications Acetaminophen (Tylenol -) 650 mg PO Q6H PRN PRN Reason: FEVER OR PAIN Last Admin: 06/10/17 23:15 Dose: 650 mg Apixaban (Eliquis -) 2.5 mg PO BID [facility] Last Admin: 06/17/17 09:03 Dose: 2.5 mg Diltiazem HCl (Cardizem Cd -) 180 mg PO DAILY [facility] Last Admin: 06/17/17 09:03 Dose: 180 mg Docusate Sodium (Colace -) 100 mg PO TID [facility] Last Admin: 06/17/17 06:15 Dose: Not Given Escitalopram Oxalate (Lexapro -) 10 mg PO DAILY [facility] Piperacillin/Tazobactam/Dextrose (Zosyn 2.25gm Ivpb (Premix)) 2.25 gm in 50 mls @ 100 mls/hr IVPB Q8H-IV ANNA PRN Reason: Protocol Last Admin: 06/17/17 09:19 Dose: 100 mls/hr Insulin Aspart (Novolog Vial Sliding Scale -) 1 vial SQ ACHS ANNA PRN Reason: Protocol Last Admin: 06/17/17 06:15 Dose: Not Given Lorazepam (Ativan Injection -) 0.5 mg IVPUSH Q6H PRN PRN Reason: ANXIETY Last Admin: 06/16/17 21:32 Dose: 0.5 mg Metronidazole (Flagyl -) 500 mg PO TID [facility] Last Admin: 06/17/17 06:16 Dose: 500 mg Prednisone (Deltasone -) 10 mg PO DAILY [facility] Quetiapine Fumarate (Seroquel -) 25 mg PO HS [facility] Last Admin: 06/16/17 21:24 Dose: 25 mg Ranitidine HCl (Zantac -) 300 mg PO DAILY@1800 [facility] Last Admin: 06/16/17 17:30 Dose: Not Given Tiotropium [place] (Spiriva -) 1 puff IH DAILY [facility] Last Admin: 06/17/17 09:05 Dose: Not Given - Objective Vital Signs: Vital Signs Temperature 97.8 F 06/17/17 05:41 Pulse Rate 100 H 06/17/17 11:16 Respiratory Rate 20 06/17/17 05:41 Blood Pressure 150/80 06/17/17 05:41 O2 Sat by Pulse Oximetry (%) 98 06/17/17 11:16 Constitutional: Yes: Moderate Distress Eyes: Yes: WNL HENT: Yes: WNL Neck: Yes: WNL Cardiovascular: Yes: Pulse Irregular Respiratory: Yes: On Nasal O2, SOB Gastrointestinal: Yes: WNL Genitourinary: Yes: Incontinence Musculoskeletal: Yes: Muscle Weakness Extremities: Yes: WNL Edema: Yes Edema: LLE: Trace, RLE: Trace Peripheral Pulses WNL: Yes Integumentary: Yes: WNL Wound/Incision: Yes: Clean/Dry Neurological: Yes: Weakness ...Motor Strength: LLE, RLE Psychiatric: Yes: Other Labs: CBC, BMP 06/17/17 05:05 06/17/17 05:05 INR, PTT INR 0.89 (0.82-1.09) 06/12/17 11:15 Problem List - Problems (1) Melena Code(s): K92.1 - MELENA (2) Stool guaiac positive Code(s): R19.5 - OTHER FECAL ABNORMALITIES (3) Abdominal aneurysm Code(s): I71.4 - ABDOMINAL AORTIC ANEURYSM, WITHOUT RUPTURE (4) Atrial fibrillation Code(s): I48.91 - UNSPECIFIED ATRIAL FIBRILLATION Qualifiers: Atrial fibrillation type: persistent Qualified Code(s): I48.1 - Persistent atrial fibrillation (5) COPD (chronic obstructive pulmonary disease) Code(s): J44.9 - CHRONIC OBSTRUCTIVE PULMONARY DISEASE, UNSPECIFIED Qualifiers: Emphysema type: centrilobular (6) Chronic renal disease Code(s): N18.9 - CHRONIC KIDNEY DISEASE, UNSPECIFIED Qualifiers: Chronic kidney disease stage: stage 4 (severe) Qualified Code(s): N18.4 - Chronic kidney disease, stage 4 (severe) (7) Constipation Code(s): K59.00 - CONSTIPATION, UNSPECIFIED (8) Lung malignancy Code(s): C34.90 - MALIGNANT NEOPLASM OF UNSP PART OF UNSP BRONCHUS OR LUNG Qualifiers: Laterality: left Assessment/Plan PLEURAL EFFUSION INCREASED NEEDS THORACENTESIS WITH LEUKOCYTOSIS ON ABX. COLITIS? ON ZOSYN IV/FLAGYL PO TOLERATING DIET , POOR APPETITE PT OOB TO CHAIR ON [facility]
--- NOTE | 2017-06-17 13:02 | CONS ---
DATE OF CONSULTATION: 06/17/2018 REFERRING PHYSICIAN: Jay Wolfe MD HISTORY OF PRESENT ILLNESS: The patient is a 77-year-old woman with a past medical history of atrial fibrillation, lung cancer status post left lower lobe lobectomy, COPD, and aortic abdominal aneurysm who was admitted on May 25 with weakness, nausea, vomiting, and dark stools. The patient was found to have guaiac- positive stool but underwent CAT scan of the abdomen both with and without contrast. There were no GI abnormalities, but she was found to have an increase in size of her abdominal aortic aneurysm from 5.4 to 5.8 cm. The patient was not a candidate for endoscopy or colonoscopy pending her endovascular repair abdominal aortic aneurysm, which was done on June 02, 2017. The patient was on IV steroids and developed some significant leukocytosis, elevated blood sugars. The patient feels extremely weak but has no complaints of shortness of breath or any current pain. She was seen by physical therapy but has so far been unable to ambulate. She mainly does exercise at the bedside. The patient's WBCs, which had been as high as 37,000 on June 12 are improved, although today still significantly elevated at 29.6. Hemoglobin is stable at 9.8 and platelet count is stable 246. Chemistry, she has chronic kidney disease, BUN 80, creatinine 3.2. Her liver enzymes are slightly elevated at AST 34 and ALT 59, and her alkaline phosphatase is 75. Otherwise, chemistry unremarkable. The patient is on Eliquis for atrial fibrillation and is now seen in rehabilitation evaluation. PAST MEDICAL AND SURGICAL HISTORY: Extensive as above. COPD, lung cancer status post left lower lobe lobectomy, gastroesophageal reflux disease, chronic kidney disease, aortic abdominal aneurysm, hyperparathyroidism. SOCIAL HISTORY: Per the patient, she lives in a private house and premorbidly she states she was independent. She lived alone. Current function, the patient remains dependent. Has difficulty with bed mobility. REVIEW OF SYSTEMS: No lightheadedness, dizziness, headache. No blurry vision or double vision that is new. No nausea, vomiting, difficulty swallowing, difficulty chewing. No chest pain. She gets dyspneic with exertion but no shortness of breath at rest. She feels generally weak but no numbness or tingling in the upper and lower extremities. She has some back pain from lying in bed, according to the patient , but no other joint arthralgias. No neck pain. No upper and lower extremity joint arthralgias. No fever or chills. No skin breakdown reported. No rash. She has lost weight. She is unsure how much. PHYSICAL EXAMINATION: General: A frail, cachectic woman seen lying in bed in no acute distress. HEENT: She is normocephalic. Her extraocular muscles appear intact. She has no obvious facial weakness. Neck: Supple without any palpable spasm. Extremities: Without any pitting edema or calf tenderness. Neuromuscular: She is awake, alert, oriented x3. She is anxious but she seems to have fairly good insight into her medical conditions, although she does ask to have a cab take her out of the hospital. Neurologic: Cranial nerves 2-12 are grossly intact. She has generalized weakness proximal upper extremities, 3+/5 distally, 4/5 in the lower extremities, 1/5-2/5 proximal strength in the hip girdle, 2+/5 to 3/5 in the extensor strength, and 4 +/5 dorsiflexion and plantar flexion strength. Normal sensation to light touch and pin in the upper and lower extremities. Symmetric reflexes. She has tenderness throughout the lumbosacral paraspinal musculature. She has some moderate arthritic changes in the upper extremities, but they are nonrestrictive. No tender joints. IMPRESSION: 1. Severe deficits in mobility and activities of daily living. 2. Deconditioning. 3. Cannot rule out steroid myopathy or critical illness myopathy. 4. Back pain possibly due to immobility, difficulty with bed mobility. 5. Aortic abdominal aneurysm status post endovascular repair. 6. Underlying chronic obstructive pulmonary disease. 7. Leukocytosis on steroids. 8. Guaiac-positive stools for further workup. 9. Lung cancer status post lobectomy 3 months ago. 10. Chronic kidney disease. 11. Hypertension. 12. Elevated risk for deep vein thrombosis. 13. Atrial fibrillation on Eliquis. 14. Elevated risk for skin breakdown. 15. Elevated risk for constipation. PLAN AND SUGGEST: 1. Continue bedside physical therapy for range of motion, strengthening in the upper and lower extremities, bed mobility, sitting balance, transfers if and when appropriate. 2. Out of bed to chair if or when able. 3. The patient is on Eliquis. No further DVT prophylaxis needed. 4. Taper steroids as able. 5. Skin precautions. Avoid heel sacral pressure. Monitor for discoloration and breakdown. 6. Bowel regimen. Monitor for constipation. 7. GI workup when stable. 8. The patient will need significant inpatient rehabilitation once medically stabilized in a group home facility both physical and occupational therapy. Thank you for this consultation. EUGENE KENDRICK M.D. [id number] MTDD
[2017-06-17] MEDS: predniSONE 10 MG TABLET (UD) PO SCH (13:10)
--- NOTE | 2017-06-17 13:21 | PN ---
Progress Note (short form) - Note Progress Note: Denies any new complaints Mild SOB Blood sugar fluctuating No Hypos Vital Signs Period Temp Pulse Resp BP Sys/Sellers Pulse Ox Last 24 Hr 97.0 F-98.8 F 90-106 18-20 141-161/54-90 98-100 PE: AOx3 Neck: Supple, No JVD Lungs: few rhonchi HEEENT: EOMI CVS: S1S2 Abd: Benign Ext: +Edema CMP Sodium 142 mmol/L (136-145) 06/17/17 05:05 Potassium 5.0 mmol/L (3.5-5.1) 06/17/17 05:05 Chloride 104 mmol/L (98-107) 06/17/17 05:05 Carbon Dioxide 27 mmol/L (21-32) 06/17/17 05:05 Anion Gap 11 (8-16) 06/17/17 05:05 BUN 80 mg/dL (7-18) H 06/17/17 05:05 Creatinine 3.2 mg/dL (0.55-1.02) H 06/17/17 05:05 Creat Clearance w eGFR 14.12 (>60) 06/17/17 05:05 POC Glucometer 146 UNITS (80-120) 06/17/17 06:06 Random Glucose 116 mg/dL (74-106) H 06/17/17 05:05 Hemoglobin A1c % 7.3 % (4.8-6.0) H 06/16/17 19:00 Lactic Acid 0.6 mmol/L (0.4-2.0) 06/14/17 11:38 Calcium 7.7 mg/dL (8.5-10.1) L 06/17/17 05:05 Phosphorus 4.2 mg/dL (2.5-4.9) 06/15/17 05:05 Magnesium 4.0 mg/dL (1.8-2.4) H 06/17/17 05:05 Iron 32 ug/dL (27-139) 06/12/17 05:05 TIBC 230 ug/dL (250-450) L 06/12/17 05:05 Iron Saturation 14 % (15-55) L 06/12/17 05:05 Ferritin 100.588 ng/ml (6.9-282.5) 06/12/17 05:05 Total Bilirubin 0.5 mg/dL (0.2-1.0) D 06/17/17 05:05 Direct Bilirubin < 0.2 mg/dL (0.0-0.2) 06/13/17 06:00 AST 34 U/L (15-37) D 06/17/17 05:05 ALT 59 U/L (12-78) D 06/17/17 05:05 Alkaline Phosphatase 75 U/L (45-117) D 06/17/17 05:05 Creatine Kinase 105 IU/L (26-192) 06/11/17 08:10 Troponin I 0.02 ng/ml (0.00-0.05) 06/11/17 08:10 C-Reactive Protein Cancelled 06/14/17 07:50 B-Natriuretic Peptide 7287.04 pg/ml (5-450) H 05/25/17 13:15 Total Protein 5.1 g/dl (6.4-8.2) L 06/17/17 05:05 Albumin 2.2 g/dl (3.4-5.0) L 06/17/17 05:05 Lipase 319 U/L (73-393) 05/25/17 13:15 Current Medications Generic Name Dose Route Start Last Admin Trade Name Freq PRN Reason Stop Dose Admin Acetaminophen 650 mg 06/02/17 19:24 06/10/17 23:15 Tylenol - PO 650 mg Q6H PRN Administration FEVER OR PAIN Apixaban 2.5 mg 06/14/17 11:00 06/17/17 09:03 Eliquis - PO 2.5 mg BID ANNA Administration Diltiazem HCl 180 mg 06/03/17 10:00 06/17/17 09:03 Cardizem Cd - PO 180 mg DAILY ANNA Administration Docusate Sodium 100 mg 06/02/17 22:00 06/17/17 13:10 Colace - PO Not Given TID ANNA Escitalopram Oxalate 10 mg 06/17/17 11:45 Lexapro - PO DAILY ANNA Piperacillin/Tazobactam/Dextrose 2.25 gm in 50 mls @ 100 mls/hr 06/14/17 10: 00 06/17/17 09:19 Zosyn 2.25gm Ivpb (Premix) IVPB 100 mls/hr Q8H-IV ANNA Administration Protocol Insulin Aspart 1 vial 06/10/17 16:30 06/17/17 11:09 Novolog Vial Sliding Scale - SQ Not Given ACHS ANNA Protocol Lorazepam 0.5 mg 06/16/17 02:04 06/16/17 21:32 Ativan Injection - IVPUSH 0.5 mg Q6H PRN Administration ANXIETY Metronidazole 500 mg 06/15/17 22:00 06/17/17 06:16 Flagyl - PO 500 mg TID ANNA Administration Prednisone 10 mg 06/17/17 11:45 06/17/17 13:10 Deltasone - PO Not Given DAILY ANNA Quetiapine Fumarate 25 mg 06/13/17 22:00 06/16/17 21:24 Seroquel - PO 25 mg HS ANNA Administration Ranitidine HCl 300 mg 06/03/17 18:30 06/16/17 17:30 Zantac - PO Not Given DAILY@1800 ANNA Tiotropium [place] 1 puff 06/03/17 10:00 06/17/17 09:05 Spiriva - IH Not Given DAILY ANNA AP: T2DM AAA s/P endovascular repair lung cancer s/P lobectomy HTN A Fib CKD BGM QACHS Novolog SS coverage HbA1c 7.3 If blood sugar remains high after steroids are discontinued, will start Tradjenta 5mg QD or Januvia 25mg QD Will f/u Problem List - Problems (1) Abdominal aortic aneurysm (AAA) Code(s): I71.4 - ABDOMINAL AORTIC ANEURYSM, WITHOUT RUPTURE Qualifiers: Presence of rupture: without rupture Qualified Code(s): I71.4 - Abdominal aortic aneurysm, without rupture (2) Abdominal pain Code(s): R10.9 - UNSPECIFIED ABDOMINAL PAIN (3) COPD exacerbation Code(s): J44.1 - CHRONIC OBSTRUCTIVE PULMONARY DISEASE W (ACUTE) EXACERBATION (4) S/P lobectomy of lung Code(s): Z90.2 - ACQUIRED ABSENCE OF LUNG [PART OF] (5) Atrial fibrillation Code(s): I48.91 - UNSPECIFIED ATRIAL FIBRILLATION Qualifiers: Atrial fibrillation type: persistent Qualified Code(s): I48.1 - Persistent atrial fibrillation
[2017-06-17] MEDS: ESCITALOPRAM OXALATE 10 MG TABLET (FP) PO SCH (13:59)
[2017-06-17] MEDS: LORazepam 2 MG/ML SDV VIAL IVPUSH PRN ×2 (14:00→21:46)
--- NOTE | 2017-06-17 14:21 | PN ---
Progress Note (short form) - Note Progress Note: Remains on VM O2. Mildy tachypneic at rest. No CP. Dry cough. Intake & Output 06/14/17 06/15/17 06/16/17 06/17/17 23:59 23:59 23:59 23:59 Intake Total 2900 1055 1752 50 Balance 2900 1055 1752 50 Weight 159 lb 3 oz Last Vital Signs Temp Pulse Resp BP Pulse Ox 97.8 F 100 H 20 150/80 98 06/17/17 05:41 06/17/17 11:16 06/17/17 05:41 06/17/17 05:41 06/17/17 11:16 Active Medications Acetaminophen (Tylenol -) 650 mg PO Q6H PRN PRN Reason: FEVER OR PAIN Last Admin: 06/10/17 23:15 Dose: 650 mg Apixaban (Eliquis -) 2.5 mg PO BID [facility] Last Admin: 06/17/17 09:03 Dose: 2.5 mg Diltiazem HCl (Cardizem Cd -) 180 mg PO DAILY [facility] Last Admin: 06/17/17 09:03 Dose: 180 mg Docusate Sodium (Colace -) 100 mg PO TID [facility] Last Admin: 06/17/17 13:10 Dose: Not Given Escitalopram Oxalate (Lexapro -) 10 mg PO DAILY [facility] Last Admin: 06/17/17 13:59 Dose: 10 mg Piperacillin/Tazobactam/Dextrose (Zosyn 2.25gm Ivpb (Premix)) 2.25 gm in 50 mls @ 100 mls/hr IVPB Q8H-IV ANNA PRN Reason: Protocol Last Admin: 06/17/17 09:19 Dose: 100 mls/hr Insulin Aspart (Novolog Vial Sliding Scale -) 1 vial SQ ACHS ANNA PRN Reason: Protocol Last Admin: 06/17/17 11:09 Dose: Not Given Lorazepam (Ativan Injection -) 0.5 mg IVPUSH Q6H PRN PRN Reason: ANXIETY Last Admin: 06/17/17 14:00 Dose: 0.5 mg Metronidazole (Flagyl -) 500 mg PO TID [facility] Last Admin: 06/17/17 13:59 Dose: 500 mg Prednisone (Deltasone -) 10 mg PO DAILY [facility] Last Admin: 06/17/17 13:10 Dose: Not Given Quetiapine Fumarate (Seroquel -) 25 mg PO HS [facility] Last Admin: 06/16/17 21:24 Dose: 25 mg Ranitidine HCl (Zantac -) 300 mg PO DAILY@1800 [facility] Last Admin: 06/16/17 17:30 Dose: Not Given Tiotropium [place] (Spiriva -) 1 puff IH DAILY [facility] Last Admin: 06/17/17 09:05 Dose: Not Given Constitutional: Yes: Mildly tachypneic at rest, VM O2 Eyes: Yes: WNL HENT: Yes: WNL Neck: Yes: WNL Cardiovascular: Yes: Pulse Irregular, S1, S2 Respiratory: Yes: Bilateral rhonchi Gastrointestinal: Yes: Normal Bowel Sounds, Soft Musculoskeletal: Yes: Muscle Weakness (LOWER EXT WEAKNESS) Extremities: Yes: WNL Edema: Yes Labs: Laboratory Results - last 24 hr 06/14/17 06/16/17 06/16/17 11:23 15:45 19:00 WBC RBC Hgb Hct MCV MCH MCHC RDW Plt Count MPV Sodium Potassium Chloride Carbon Dioxide Anion Gap BUN Creatinine Creat Clearance w eGFR POC Glucometer [id number] 233 Random Glucose Hemoglobin A1c % 7.3 H Calcium Magnesium Total Bilirubin AST ALT Alkaline Phosphatase Total Protein Albumin 06/16/17 06/17/17 06/17/17 21:20 05:05 05:05 WBC 29.6 H RBC 3.33 L Hgb 9.8 L D Hct 31.2 L D MCV 93.5 MCH 29.5 MCHC 31.5 L RDW 15.3 Plt Count 246 MPV 8.4 Sodium 142 Potassium 5.0 Chloride 104 Carbon Dioxide 27 Anion Gap 11 BUN 80 H Creatinine 3.2 H Creat Clearance w eGFR 14.12 POC Glucometer 303 Random Glucose 116 H Hemoglobin A1c % Calcium 7.7 L Magnesium 4.0 H Total Bilirubin 0.5 D AST 34 D ALT 59 D Alkaline Phosphatase 75 D Total Protein 5.1 L Albumin 2.2 L 06/17/17 06:06 WBC RBC Hgb Hct MCV MCH MCHC RDW Plt Count MPV Sodium Potassium Chloride Carbon Dioxide Anion Gap BUN Creatinine Creat Clearance w eGFR POC Glucometer 146 Random Glucose Hemoglobin A1c % Calcium Magnesium Total Bilirubin AST ALT Alkaline Phosphatase Total Protein Albumin Assessment/Plan S/P Acute hypoxemic respiratory failure AAA S/P EVAR Lung Ca s/p LLL lobectomy COPD Atrial Fibrillation Acute on chronic renal failure Pulmonary Htn Anemia Weakness - Prednisone - Spiriva - HD as per renal - inhaled bronchodilators - incentive spirometry - DVT prophylaxis - O2 to maintain saturation Dr Bacon
--- NOTE | 2017-06-17 14:37 | PN ---
Progress Note, Physician History of Present Illness: Pt seen and examined at bedside. She is awake but anxious. She wants to go home. - Current Medication List Current Medications: Active Medications Acetaminophen (Tylenol -) 650 mg PO Q6H PRN PRN Reason: FEVER OR PAIN Last Admin: 06/10/17 23:15 Dose: 650 mg Apixaban (Eliquis -) 2.5 mg PO BID [facility] Last Admin: 06/17/17 09:03 Dose: 2.5 mg Diltiazem HCl (Cardizem Cd -) 180 mg PO DAILY [facility] Last Admin: 06/17/17 09:03 Dose: 180 mg Docusate Sodium (Colace -) 100 mg PO TID [facility] Last Admin: 06/17/17 13:10 Dose: Not Given Escitalopram Oxalate (Lexapro -) 10 mg PO DAILY [facility] Last Admin: 06/17/17 13:59 Dose: 10 mg Piperacillin/Tazobactam/Dextrose (Zosyn 2.25gm Ivpb (Premix)) 2.25 gm in 50 mls @ 100 mls/hr IVPB Q8H-IV ANNA PRN Reason: Protocol Last Admin: 06/17/17 09:19 Dose: 100 mls/hr Insulin Aspart (Novolog Vial Sliding Scale -) 1 vial SQ ACHS ANNA PRN Reason: Protocol Last Admin: 06/17/17 11:09 Dose: Not Given Lorazepam (Ativan Injection -) 0.5 mg IVPUSH Q6H PRN PRN Reason: ANXIETY Last Admin: 06/17/17 14:00 Dose: 0.5 mg Metronidazole (Flagyl -) 500 mg PO TID [facility] Last Admin: 06/17/17 13:59 Dose: 500 mg Prednisone (Deltasone -) 10 mg PO DAILY [facility] Last Admin: 06/17/17 13:10 Dose: Not Given Quetiapine Fumarate (Seroquel -) 25 mg PO HS [facility] Last Admin: 06/16/17 21:24 Dose: 25 mg Ranitidine HCl (Zantac -) 300 mg PO DAILY@1800 [facility] Last Admin: 06/16/17 17:30 Dose: Not Given Tiotropium [place] (Spiriva -) 1 puff IH DAILY [facility] Last Admin: 06/17/17 09:05 Dose: Not Given - Objective Vital Signs: Vital Signs Temperature 97.8 F 06/17/17 05:41 Pulse Rate 100 H 06/17/17 11:16 Respiratory Rate 20 06/17/17 05:41 Blood Pressure 150/80 06/17/17 05:41 O2 Sat by Pulse Oximetry (%) 98 06/17/17 11:16 Constitutional: Yes: Anxious Eyes: Yes: Conjunctiva Clear HENT: Yes: Atraumatic Cardiovascular: Yes: S1, S2 Respiratory: Yes: On Nasal O2 Gastrointestinal: Yes: Soft Genitourinary: Yes: WNL Musculoskeletal: Yes: WNL Edema: Yes Edema: LLE: 1+, RLE: 1+ Neurological: Yes: Oriented Psychiatric: Yes: Oriented Labs: CBC, BMP 06/17/17 05:05 06/17/17 05:05 INR, PTT INR 0.89 (0.82-1.09) 06/12/17 11:15 Problem List - Problems (1) Abdominal aortic aneurysm (AAA) Code(s): I71.4 - ABDOMINAL AORTIC ANEURYSM, WITHOUT RUPTURE Qualifiers: Presence of rupture: without rupture Qualified Code(s): I71.4 - Abdominal aortic aneurysm, without rupture (2) Stool guaiac positive Code(s): R19.5 - OTHER FECAL ABNORMALITIES (3) Atrial fibrillation Code(s): I48.91 - UNSPECIFIED ATRIAL FIBRILLATION Qualifiers: Atrial fibrillation type: persistent Qualified Code(s): I48.1 - Persistent atrial fibrillation (4) COPD (chronic obstructive pulmonary disease) Code(s): J44.9 - CHRONIC OBSTRUCTIVE PULMONARY DISEASE, UNSPECIFIED Qualifiers: Emphysema type: centrilobular (5) Chronic renal disease Code(s): N18.9 - CHRONIC KIDNEY DISEASE, UNSPECIFIED Qualifiers: Chronic kidney disease stage: stage 4 (severe) Qualified Code(s): N18.4 - Chronic kidney disease, stage 4 (severe) (6) Pneumothorax Code(s): J93.9 - PNEUMOTHORAX, UNSPECIFIED Qualifiers: Pneumothorax type: postprocedural Qualified Code(s): J95.811 - Postprocedural pneumothorax (7) Tobacco use Code(s): Z72.0 - TOBACCO USE Assessment/Plan Current Medications Generic Name Dose Route Start Last Admin Trade Name Freq PRN Reason Stop Dose Admin Acetaminophen 650 mg 06/02/17 19:24 06/10/17 23:15 Tylenol - PO 650 mg Q6H PRN Administration FEVER OR PAIN Apixaban 2.5 mg 06/14/17 11:00 06/17/17 09:03 Eliquis - PO 2.5 mg BID ANNA Administration Diltiazem HCl 180 mg 06/03/17 10:00 06/17/17 09:03 Cardizem Cd - PO 180 mg DAILY ANNA Administration Docusate Sodium 100 mg 06/02/17 22:00 06/17/17 13:10 Colace - PO Not Given TID ANNA Escitalopram Oxalate 10 mg 06/17/17 11:45 06/17/17 13:59 Lexapro - PO 10 mg DAILY ANNA Administration Piperacillin/Tazobactam/Dextrose 2.25 gm in 50 mls @ 100 mls/hr 06/14/17 10: 00 06/17/17 09:19 Zosyn 2.25gm Ivpb (Premix) IVPB 100 mls/hr Q8H-IV ANNA Administration Protocol Insulin Aspart 1 vial 06/10/17 16:30 06/17/17 11:09 Novolog Vial Sliding Scale - SQ Not Given ACHS [facility] Protocol Lorazepam 0.5 mg 06/16/17 02:04 06/17/17 14:00 Ativan Injection - IVPUSH 0.5 mg Q6H PRN Administration ANXIETY Metronidazole 500 mg 06/15/17 22:00 06/17/17 13:59 Flagyl - PO 500 mg TID [facility] Administration Prednisone 10 mg 06/17/17 11:45 06/17/17 13:10 Deltasone - PO Not Given DAILY [facility] Quetiapine Fumarate 25 mg 06/13/17 22:00 06/16/17 21:24 Seroquel - PO 25 mg HS [facility] Administration Ranitidine HCl 300 mg 06/03/17 18:30 06/16/17 17:30 Zantac - PO Not Given DAILY@1800 [facility] Tiotropium [place] 1 puff 06/03/17 10:00 06/17/17 09:05 Spiriva - IH Not Given DAILY ANNA 1. CKD with acute component 2. AAA 3. lung cancer 4. HTN 5. a-fib 6. chol 7. hx hydropneumothorax 8. GI bleed 9. sepsis 10. leukocytosis 11. COLE 12. abdominal pain 13. hypoxia/erpiratory failure requiring bipap 14. hypermagnesemia requiring HD for removal Plan - cont sterodis taper - do not give fluids - renal diet - mag level improved - pt was dialyzed for hypermagnesemai last week - monitor pulse ox - cont bipap as needed - monitor BP - will follow Dr Shearer
--- NOTE | 2017-06-17 15:01 | PN ---
Progress Note, Physician Chief Complaint: ID Zosyn and metronidazole - Current Medication List Current Medications: Active Medications Acetaminophen (Tylenol -) 650 mg PO Q6H PRN PRN Reason: FEVER OR PAIN Last Admin: 06/10/17 23:15 Dose: 650 mg Apixaban (Eliquis -) 2.5 mg PO BID [facility] Last Admin: 06/17/17 09:03 Dose: 2.5 mg Diltiazem HCl (Cardizem Cd -) 180 mg PO DAILY [facility] Last Admin: 06/17/17 09:03 Dose: 180 mg Docusate Sodium (Colace -) 100 mg PO TID [facility] Last Admin: 06/17/17 13:10 Dose: Not Given Escitalopram Oxalate (Lexapro -) 10 mg PO DAILY [facility] Last Admin: 06/17/17 13:59 Dose: 10 mg Piperacillin/Tazobactam/Dextrose (Zosyn 2.25gm Ivpb (Premix)) 2.25 gm in 50 mls @ 100 mls/hr IVPB Q8H-IV ANNA PRN Reason: Protocol Last Admin: 06/17/17 09:19 Dose: 100 mls/hr Insulin Aspart (Novolog Vial Sliding Scale -) 1 vial SQ ACHS ANNA PRN Reason: Protocol Last Admin: 06/17/17 11:09 Dose: Not Given Lorazepam (Ativan Injection -) 0.5 mg IVPUSH Q6H PRN PRN Reason: ANXIETY Last Admin: 06/17/17 14:00 Dose: 0.5 mg Metronidazole (Flagyl -) 500 mg PO TID [facility] Last Admin: 06/17/17 13:59 Dose: 500 mg Prednisone (Deltasone -) 10 mg PO DAILY [facility] Last Admin: 06/17/17 13:10 Dose: Not Given Quetiapine Fumarate (Seroquel -) 25 mg PO HS [facility] Last Admin: 06/16/17 21:24 Dose: 25 mg Ranitidine HCl (Zantac -) 300 mg PO DAILY@1800 [facility] Last Admin: 06/16/17 17:30 Dose: Not Given Tiotropium [place] (Spiriva -) 1 puff IH DAILY [facility] Last Admin: 06/17/17 09:05 Dose: Not Given - Objective Vital Signs: Vital Signs Temperature 97.8 F 06/17/17 05:41 Pulse Rate 100 H 06/17/17 11:16 Respiratory Rate 20 06/17/17 05:41 Blood Pressure 150/80 06/17/17 05:41 O2 Sat by Pulse Oximetry (%) 98 06/17/17 11:16 Gastrointestinal: Yes: WNL, Normal Bowel Sounds, Soft. No: Tenderness, Tenderness, Epigastrium Labs: CBC, BMP 06/17/17 05:05 06/17/17 05:05 INR, PTT INR 0.89 (0.82-1.09) 06/12/17 11:15 Problem List - Problems (1) Aby esophagitis Code(s): B37.81 - CANDIDAL ESOPHAGITIS (2) Sepsis Code(s): A41.9 - SEPSIS, UNSPECIFIED ORGANISM Assessment/Plan Microbiology 06/14/17 06:15 Stool Clostridium difficile Antigen (YOLI) - Final 06/14/17 06:15 Stool Clostridium difficile Toxin Assay - Final 06/11/17 12:36 Blood - Peripheral Venous Blood Culture - Final NO GROWTH AFTER 5 DAYS INCUBATION 06/11/17 12:25 Blood - Peripheral Venous Blood Culture - Final NO GROWTH AFTER 5 DAYS INCUBATION 06/05/17 13:05 Blood - Peripheral Venous Blood Culture - Final NO GROWTH AFTER 5 DAYS INCUBATION 06/05/17 12:58 Blood - Peripheral Venous Blood Culture - Final NO GROWTH AFTER 5 DAYS INCUBATION Laboratory Tests 06/17/17 06/17/17 05:05 05:05 WBC 29.6 H Hgb 9.8 L D Hct 31.2 L D Plt Count 246 Anion Gap 11 Creatinine 3.2 H Assessment S/P EVAR procedure Working diagnosis ischemic colitis (Zosyn) C diff ag positive toxin negative (flagyl) Plan Conitinue Zosyn now day 5 therapy along with metronidazole Etiology of WBC unclear partly steroids
[2017-06-17] MEDS: RANITIDINE HCL 150 MG TABLET (FP) PO SCH (18:49)
--- NOTE | 2017-06-17 21:20 | PN ---
Progress Note (short form) - Note Progress Note: Patient seen and examined c/o shortness of breath Last Vital Signs Temp Pulse Resp BP Pulse Ox 97.2 F L 64 20 145/66 95 06/10/17 20:44 06/10/17 20:44 06/10/17 20:44 06/10/17 20:44 06/10/17 21:00 Cor: RSR, No murmurs, No gallops Lungs: decreased lt. base/rt. base crackles Abd: Soft, Normal bowel sounds, No organomegaly Ext:No significant edema Skin: No rashes, Integument intact Abnormal Lab Results 06/10/17 06/10/17 05:05 10:50 ABG pCO2 at Pt Temp 51.0 H ABG pO2 at Pt Temp 68.7 L D ABG HCO3 30.6 H ABG O2 Content 13.4 L ABG Base Excess 5.3 H BUN 98 H D Creatinine 3.4 H Random Glucose 354 H* D Calcium 7.8 L Active Medications Generic Name Dose Route Start Last Admin Trade Name Freq PRN Reason Stop Dose Admin Acetaminophen 650 mg 06/02/17 19:24 06/10/17 23:15 Tylenol - PO 650 mg Q6H PRN Administration FEVER OR PAIN Acetaminophen 1,000 mg 06/02/17 22:51 06/03/17 05:02 Ofirmev Injection - IVPB 1,000 mg Q6H PRN Administration FEVER OR PAIN Albuterol Sulfate 1 amp 06/10/17 10:22 06/10/17 20:04 Ventolin 0.083% Nebulizer Soln - NEB 1 amp Q1H PRN Administration SHORT OF BREATH/WHEEZING Albuterol Sulfate 1 amp 06/10/17 11:56 06/10/17 23:29 Ventolin 0.083% Nebulizer Soln - NEB 1 amp QIDR ANNA Administration Diltiazem HCl 30 mg 06/02/17 19:16 06/02/17 19:20 Cardizem Injection - IVPUSH 30 mg Q6H PRN Administration TACHYCARDIA Diltiazem HCl 180 mg 06/03/17 10:00 06/10/17 09:45 Cardizem Cd - PO 180 mg DAILY ANNA Administration Docusate Sodium 100 mg 06/02/17 22:00 06/10/17 22:17 Colace - PO Not Given TID ANNA Piperacillin Sod/Tazobactam 50 mls @ 100 mls/hr 06/05/17 12:15 06/10/17 17:30 Sod 2.25 gm/ Dextrose IVPB 100 mls/hr Q8H-IV ANNA Administration Fluconazole 50 mls @ 50 mls/hr 06/09/17 19:15 06/10/17 09:55 Diflucan 100 Mg/Ns Premixed Ivpb - IVPB 50 mls/hr DAILY ANNA Administration Sodium Chloride 1,000 mls @ 75 mls/hr 06/10/17 15:57 06/10/17 17:40 Normal Saline - IV 75 mls/hr ASDIR ANNA Administration Insulin Aspart 1 vial 06/10/17 16:30 06/10/17 22:17 Novolog Vial Sliding Scale - SQ Not Given ACHS [facility] Protocol Lorazepam 0.5 mg 06/02/17 19:24 06/10/17 13:50 Ativan - PO 0.5 mg TID PRN Administration ANXIETY Methylprednisolone Sodium Succinate 40 mg 06/10/17 18:00 06/10/17 17:30 Solu-Medrol - IVPUSH 40 mg Q8H-IV ANNA Administration Ondansetron HCl 4 mg 06/08/17 19:34 06/08/17 19:50 Zofran Injection IVPUSH 4 mg Q8H PRN Administration NAUSEA AND/OR VOMITING Ranitidine HCl 300 mg 06/03/17 18:30 06/10/17 17:30 Zantac - PO 300 mg DAILY@1800 ANNA Administration Tiotropium [place] 1 puff 06/03/17 10:00 06/10/17 09:46 Spiriva - IH 1 pfu DAILY [facility] Administration Tramadol HCl 50 mg 06/10/17 20:58 Ultram - PO Q8H PRN PAIN a/p Stage IB. ([id number]) Squamous Lung cancer s/p resection. ( left sided VATS procedure and OSVALDO lobectomy.) AAA Afib ---eliquis on hold esrd Stool occult positive /blood loss anemia--hgb 9.8 egd--mucosal bleeds/avms ? switch to coumadin abdominal pain--colitis-? infectious/ischemic GI consult
[2017-06-17] MEDS: QUEtiapine FUMARATE 25 MG TABLET (FP) PO SCH (21:33)
[2017-06-18] MEDS: PIPERACILLIN/TAZOB 2.25 GM 2.25 GM/50 ML BAG IVPB SCH ×2 (01:01→11:11)
[2017-06-18] MEDS: INSULIN SLIDING SCALE (NOVOLOG) 1 VIAL SQ SCH ×4 (06:28→22:03)
[2017-06-18] MEDS: DOCUSATE SODIUM 100 MG CAPSULE (FP) PO SCH ×3 (06:29→22:04)
[2017-06-18] MEDS: metroNIDAZOLE 250 MG TABLET PO SCH (06:30)
--- NOTE | 2017-06-18 09:55 | PN ---
Progress Note, Physician Chief Complaint: ASLEEP ID NOTE REVIEWED THORACENTESIS ORDERED - Current Medication List Current Medications: Active Medications Acetaminophen (Tylenol -) 650 mg PO Q6H PRN PRN Reason: FEVER OR PAIN Last Admin: 06/10/17 23:15 Dose: 650 mg Apixaban (Eliquis -) 2.5 mg PO BID [facility] Last Admin: 06/17/17 21:33 Dose: 2.5 mg Diltiazem HCl (Cardizem Cd -) 180 mg PO DAILY [facility] Last Admin: 06/17/17 09:03 Dose: 180 mg Docusate Sodium (Colace -) 100 mg PO TID [facility] Last Admin: 06/18/17 06:29 Dose: Not Given Escitalopram Oxalate (Lexapro -) 10 mg PO DAILY [facility] Last Admin: 06/17/17 13:59 Dose: 10 mg Piperacillin/Tazobactam/Dextrose (Zosyn 2.25gm Ivpb (Premix)) 2.25 gm in 50 mls @ 100 mls/hr IVPB Q8H-IV ANNA PRN Reason: Protocol Last Admin: 06/18/17 01:01 Dose: 100 mls/hr Insulin Aspart (Novolog Vial Sliding Scale -) 1 vial SQ ACHS ANNA PRN Reason: Protocol Last Admin: 06/18/17 06:28 Dose: Not Given Lorazepam (Ativan Injection -) 0.5 mg IVPUSH Q6H PRN PRN Reason: ANXIETY Last Admin: 06/17/17 21:46 Dose: 0.5 mg Metronidazole (Flagyl -) 500 mg PO TID [facility] Last Admin: 06/18/17 06:30 Dose: 500 mg Prednisone (Deltasone -) 10 mg PO DAILY [facility] Last Admin: 06/17/17 13:10 Dose: Not Given Quetiapine Fumarate (Seroquel -) 25 mg PO HS [facility] Last Admin: 06/17/17 21:33 Dose: 25 mg Ranitidine HCl (Zantac -) 300 mg PO DAILY@1800 [facility] Last Admin: 06/17/17 18:49 Dose: Not Given Tiotropium [place] (Spiriva -) 1 puff IH DAILY [facility] Last Admin: 06/17/17 09:05 Dose: Not Given - Objective Vital Signs: Vital Signs Temperature 97.3 F L 06/18/17 05:59 Pulse Rate 85 06/18/17 05:59 Respiratory Rate 18 06/18/17 05:59 Blood Pressure 154/85 06/18/17 05:59 O2 Sat by Pulse Oximetry (%) 98 06/18/17 06:40 Constitutional: Yes: Moderate Distress Eyes: Yes: WNL HENT: Yes: WNL Neck: Yes: WNL Cardiovascular: Yes: Pulse Irregular Respiratory: Yes: On Nasal O2, Rhonchi, SOB, SOB on Exertion Gastrointestinal: Yes: WNL Genitourinary: Yes: Incontinence Musculoskeletal: Yes: Muscle Weakness Extremities: Yes: WNL Edema: No Peripheral Pulses WNL: Yes Integumentary: Yes: Venous Stasis Changes Wound/Incision: Yes: Dressing Dry and Intact Neurological: Yes: Unsteady Gait, Weakness ...Motor Strength: LLE, RLE Psychiatric: Yes: Agitated Labs: CBC, BMP 06/17/17 05:05 06/17/17 05:05 INR, PTT INR 0.89 (0.82-1.09) 06/12/17 11:15 Problem List - Problems (1) [place]ena Code(s): K92.1 - MELENA (2) Stool guaiac positive Code(s): R19.5 - OTHER FECAL ABNORMALITIES (3) Abdominal aneurysm Code(s): I71.4 - ABDOMINAL AORTIC ANEURYSM, WITHOUT RUPTURE (4) Atrial fibrillation Code(s): I48.91 - UNSPECIFIED ATRIAL FIBRILLATION Qualifiers: Atrial fibrillation type: persistent Qualified Code(s): I48.1 - Persistent atrial fibrillation (5) COPD (chronic obstructive pulmonary disease) Code(s): J44.9 - CHRONIC OBSTRUCTIVE PULMONARY DISEASE, UNSPECIFIED Qualifiers: Emphysema type: centrilobular (6) Chronic renal disease Code(s): N18.9 - CHRONIC KIDNEY DISEASE, UNSPECIFIED Qualifiers: Chronic kidney disease stage: stage 4 (severe) Qualified Code(s): N18.4 - Chronic kidney disease, stage 4 (severe) (7) Constipation Code(s): K59.00 - CONSTIPATION, UNSPECIFIED (8) Lung malignancy Code(s): C34.90 - MALIGNANT NEOPLASM OF UNSP PART OF UNSP BRONCHUS OR LUNG Qualifiers: Laterality: left Assessment/Plan THORACENTESIS ORDERED IV ZOSYN CONTINUED PT AND OOB TO CHAIR ELIZABETH CONTINUED INCENTIVE SPIROMETRY
[2017-06-18] MEDS ORDERED: PT OWN MED DRAWER 7, Y5N ONE (10:45)
[2017-06-18] MEDS: APIXABAN 2.5 MG TABLET PO SCH ×2 (10:55→22:04)
[2017-06-18] MEDS: predniSONE 10 MG TABLET (UD) PO SCH (10:55)
[2017-06-18] MEDS: ESCITALOPRAM OXALATE 10 MG TABLET (FP) PO SCH (10:56)
[2017-06-18] MEDS: TIOTROPIUM BROMIDE 18 MCG/INH (DEVICE W/ 5 CAPSULES) IH SCH (11:07)
--- NOTE | 2017-06-18 11:46 | PN ---
Progress Note, Physician History of Present Illness: PULMONARY ALERT,LESS DYSPNEIC,WEAK. - Current Medication List Current Medications: Active Medications Acetaminophen (Tylenol -) 650 mg PO Q6H PRN PRN Reason: FEVER OR PAIN Last Admin: 06/10/17 23:15 Dose: 650 mg Apixaban (Eliquis -) 2.5 mg PO BID [facility] Last Admin: 06/18/17 10:55 Dose: 2.5 mg Diltiazem HCl (Cardizem Cd -) 180 mg PO DAILY [facility] Last Admin: 06/18/17 10:55 Dose: 180 mg Docusate Sodium (Colace -) 100 mg PO TID [facility] Last Admin: 06/18/17 06:29 Dose: Not Given Escitalopram Oxalate (Lexapro -) 10 mg PO DAILY [facility] Last Admin: 06/18/17 10:56 Dose: 10 mg Piperacillin/Tazobactam/Dextrose (Zosyn 2.25gm Ivpb (Premix)) 2.25 gm in 50 mls @ 100 mls/hr IVPB Q8H-IV ANNA PRN Reason: Protocol Last Admin: 06/18/17 11:11 Dose: 100 mls/hr Insulin Aspart (Novolog Vial Sliding Scale -) 1 vial SQ ACHS ANNA PRN Reason: Protocol Last Admin: 06/18/17 11:18 Dose: Not Given Lorazepam (Ativan Injection -) 0.5 mg IVPUSH Q6H PRN PRN Reason: ANXIETY Last Admin: 06/17/17 21:46 Dose: 0.5 mg Metronidazole (Flagyl -) 500 mg PO TID [facility] Last Admin: 06/18/17 06:30 Dose: 500 mg Prednisone (Deltasone -) 10 mg PO DAILY [facility] Last Admin: 06/18/17 10:55 Dose: 10 mg Quetiapine Fumarate (Seroquel -) 25 mg PO HS [facility] Last Admin: 06/17/17 21:33 Dose: 25 mg Ranitidine HCl (Zantac -) 300 mg PO DAILY@1800 [facility] Last Admin: 06/17/17 18:49 Dose: Not Given Tiotropium [place] (Spiriva -) 1 puff IH DAILY [facility] Last Admin: 06/18/17 11:07 Dose: 1 pfu - Objective Vital Signs: Vital Signs Temperature 97.3 F L 06/18/17 05:59 Pulse Rate 85 06/18/17 05:59 Respiratory Rate 18 06/18/17 05:59 Blood Pressure 154/85 06/18/17 05:59 O2 Sat by Pulse Oximetry (%) 98 06/18/17 06:40 Constitutional: Yes: Well Nourished, Calm, Obese HENT: Yes: WNL Neck: Yes: WNL Cardiovascular: Yes: Pulse Irregular, S1, S2 Respiratory: Yes: Diminished, Rhonchi (FEW RHONCHI) Gastrointestinal: Yes: Normal Bowel Sounds, Soft Extremities: Yes: WNL Edema: Yes Labs: CBC, BMP 06/17/17 05:05 06/17/17 05:05 INR, PTT INR 0.89 (0.82-1.09) 06/12/17 11:15 Assessment/Plan A/P S/P Acute hypoxemic respiratory failure AAA S/P EVAR Lung Ca s/p LLL lobectomy COPD Atrial Fibrillation Acute on chronic renal failure Pulmonary Htn Anemia Weakness - Prednisone - HD as per renal - inhaled bronchodilators - incentive spirometry - DVT prophylaxis - strict I+Os - pt evaluation DR CRUZ
--- NOTE | 2017-06-18 14:06 | PN ---
Progress Note (short form) - Note Progress Note: ID Despite broad spectrum antibiotics no change in WBC after a week of treatment including possible C diff Selected Entries 06/18/17 10:00 Temperature 97.6 F Pulse Rate 98 H Respiratory 18 Rate Blood Pressure 114/64 She is on steroids but only 10mg Microbiology 06/14/17 06:15 Stool Clostridium difficile Antigen (YOLI) - Final 06/14/17 06:15 Stool Clostridium difficile Toxin Assay - Final 06/11/17 12:36 Blood - Peripheral Venous Blood Culture - Final NO GROWTH AFTER 5 DAYS INCUBATION 06/11/17 12:25 Blood - Peripheral Venous Blood Culture - Final NO GROWTH AFTER 5 DAYS INCUBATION 06/05/17 13:05 Blood - Peripheral Venous Blood Culture - Final NO GROWTH AFTER 5 DAYS INCUBATION 06/05/17 12:58 Blood - Peripheral Venous Blood Culture - Final NO GROWTH AFTER 5 DAYS INCUBATION Laboratory Tests 06/12/17 06/17/17 06/17/17 06:00 05:05 05:05 WBC 29.6 H Hgb 9.8 L D Hct 31.2 L D Plt Count 246 BUN 80 H Creatinine 3.2 H Creat Clearance w eGFR 14.12 Random Vancomycin 12.954 Assessment Leukomoid reaction unclear etiology CRP 5 not high cultures neg and only C diff AG pos Plan Stop all antibiotics and observe Will plan to reimage abd and chest over the weekend Call placed to gen surgery Bebo RAMIERZ Problem List - Problems (1) Aby esophagitis Code(s): B37.81 - CANDIDAL ESOPHAGITIS (2) Sepsis Code(s): A41.9 - SEPSIS, UNSPECIFIED ORGANISM
[2017-06-18] MEDS: LORazepam 2 MG/ML SDV VIAL IVPUSH PRN (14:45)
--- NOTE | 2017-06-18 14:59 | PN ---
Progress Note, Physician History of Present Illness: Pt seen and examined at bedside. She is awake and alert. She complains of weakness. - Current Medication List Current Medications: Active Medications Acetaminophen (Tylenol -) 650 mg PO Q6H PRN PRN Reason: FEVER OR PAIN Last Admin: 06/10/17 23:15 Dose: 650 mg Apixaban (Eliquis -) 2.5 mg PO BID [facility] Last Admin: 06/18/17 10:55 Dose: 2.5 mg Diltiazem HCl (Cardizem Cd -) 180 mg PO DAILY [facility] Last Admin: 06/18/17 10:55 Dose: 180 mg Docusate Sodium (Colace -) 100 mg PO TID [facility] Last Admin: 06/18/17 06:29 Dose: Not Given Escitalopram Oxalate (Lexapro -) 10 mg PO DAILY [facility] Last Admin: 06/18/17 10:56 Dose: 10 mg Insulin Aspart (Novolog Vial Sliding Scale -) 1 vial SQ ACHS [facility] PRN Reason: Protocol Last Admin: 06/18/17 11:18 Dose: Not Given Lorazepam (Ativan Injection -) 0.5 mg IVPUSH Q6H PRN PRN Reason: ANXIETY Last Admin: 06/17/17 21:46 Dose: 0.5 mg Prednisone (Deltasone -) 10 mg PO DAILY [facility] Last Admin: 06/18/17 10:55 Dose: 10 mg Quetiapine Fumarate (Seroquel -) 25 mg PO HS [facility] Last Admin: 06/17/17 21:33 Dose: 25 mg Ranitidine HCl (Zantac -) 300 mg PO DAILY@1800 [facility] Last Admin: 06/17/17 18:49 Dose: Not Given Tiotropium [place] (Spiriva -) 1 puff IH DAILY [facility] Last Admin: 06/18/17 11:07 Dose: 1 pfu - Objective Vital Signs: Vital Signs Temperature 97.6 F 06/18/17 10:00 Pulse Rate 98 H 06/18/17 10:00 Respiratory Rate 18 06/18/17 10:00 Blood Pressure 114/64 06/18/17 10:00 O2 Sat by Pulse Oximetry (%) 99 06/18/17 10:00 Constitutional: Yes: Calm Eyes: Yes: Conjunctiva Clear HENT: Yes: Atraumatic Neck: Yes: Supple Cardiovascular: Yes: S1, S2 Respiratory: Yes: On Nasal O2 Gastrointestinal: Yes: Soft Musculoskeletal: Yes: WNL Edema: LLE: 1+, RLE: 1+ Neurological: Yes: Oriented Psychiatric: Yes: Oriented Labs: CBC, BMP 06/17/17 05:05 06/17/17 05:05 INR, PTT INR 0.89 (0.82-1.09) 06/12/17 11:15 Problem List - Problems (1) Abdominal aortic aneurysm (AAA) Code(s): I71.4 - ABDOMINAL AORTIC ANEURYSM, WITHOUT RUPTURE Qualifiers: Presence of rupture: without rupture Qualified Code(s): I71.4 - Abdominal aortic aneurysm, without rupture (2) Stool guaiac positive Code(s): R19.5 - OTHER FECAL ABNORMALITIES (3) Atrial fibrillation Code(s): I48.91 - UNSPECIFIED ATRIAL FIBRILLATION Qualifiers: Atrial fibrillation type: persistent Qualified Code(s): I48.1 - Persistent atrial fibrillation (4) COPD (chronic obstructive pulmonary disease) Code(s): J44.9 - CHRONIC OBSTRUCTIVE PULMONARY DISEASE, UNSPECIFIED Qualifiers: Emphysema type: centrilobular (5) Chronic renal disease Code(s): N18.9 - CHRONIC KIDNEY DISEASE, UNSPECIFIED Qualifiers: Chronic kidney disease stage: stage 4 (severe) Qualified Code(s): N18.4 - Chronic kidney disease, stage 4 (severe) (6) Pneumothorax Code(s): J93.9 - PNEUMOTHORAX, UNSPECIFIED Qualifiers: Pneumothorax type: postprocedural Qualified Code(s): J95.811 - Postprocedural pneumothorax (7) Tobacco use Code(s): Z72.0 - TOBACCO USE Assessment/Plan Current Medications Generic Name Dose Route Start Last Admin Trade Name Freq PRN Reason Stop Dose Admin Acetaminophen 650 mg 06/02/17 19:24 06/10/17 23:15 Tylenol - PO 650 mg Q6H PRN Administration FEVER OR PAIN Apixaban 2.5 mg 06/14/17 11:00 06/18/17 10:55 Eliquis - PO 2.5 mg BID ANNA Administration Diltiazem HCl 180 mg 06/03/17 10:00 06/18/17 10:55 Cardizem Cd - PO 180 mg DAILY [facility] Administration Docusate Sodium 100 mg 06/02/17 22:00 06/18/17 14:36 Colace - PO Not Given TID ANNA Escitalopram Oxalate 10 mg 06/17/17 11:45 06/18/17 10:56 Lexapro - PO 10 mg DAILY [facility] Administration Insulin Aspart 1 vial 06/10/17 16:30 06/18/17 11:18 Novolog Vial Sliding Scale - SQ Not Given ACHS [facility] Protocol Lorazepam 0.5 mg 06/16/17 02:04 06/18/17 14:45 Ativan Injection - IVPUSH 0.5 mg Q6H PRN Administration ANXIETY Prednisone 10 mg 06/17/17 11:45 06/18/17 10:55 Deltasone - PO 10 mg DAILY [facility] Administration Quetiapine Fumarate 25 mg 06/13/17 22:00 06/17/17 21:33 Seroquel - PO 25 mg HS ANNA Administration Ranitidine HCl 300 mg 06/03/17 18:30 06/17/17 18:49 Zantac - PO Not Given DAILY@1800 [facility] Tiotropium [place] 1 puff 06/03/17 10:00 06/18/17 11:07 Spiriva - IH 1 pfu DAILY [facility] Administration 1. CKD with acute component 2. AAA 3. lung cancer 4. HTN 5. a-fib 6. chol 7. hx hydropneumothorax 8. GI bleed 9. sepsis 10. leukocytosis 11. COLE 12. abdominal pain 13. hypoxia/erpiratory failure requiring bipap 14. hypermagnesemia requiring HD for removal Plan - check bmp - check mag level - pt was dialyzed once for about 3 hours for hypermagnesemia - check mag level - avoid mag laxitives and bowel preps - monitor pulse ox - cont bipap as needed - monitor BP - will follow Dr Shearer
[2017-06-18] MEDS: RANITIDINE HCL 150 MG TABLET (FP) PO SCH (17:20)
[2017-06-18] MEDS: QUEtiapine FUMARATE 25 MG TABLET (FP) PO SCH (22:02)
[2017-06-19] MEDS: INSULIN SLIDING SCALE (NOVOLOG) 1 VIAL SQ SCH ×4 (06:56→21:21)
[2017-06-19] MEDS: DOCUSATE SODIUM 100 MG CAPSULE (FP) PO SCH ×3 (06:56→21:12)
[2017-06-19 08:31] LABS: ALBUMIN 2.2 g/dl (3.4-5.0); ANION GAP 10 (8-16); BLOOD UREA NITROGEN 80 mg/dL (7-18); CALCIUM 7.8 mg/dL (8.5-10.1); CHLORIDE 107 mmol/L (98-107); CO2 26 mmol/L (21-32); GLUCOSE,RANDOM 81 mg/dL (74-106); MAGNESIUM 3.4 mg/dL (1.8-2.4); POTASSIUM 4.9 mmol/L (3.5-5.1); SODIUM 143 mmol/L (136-145)
[2017-06-19 08:34] LABS: ALK PHOS 75 U/L (45-117); BILIRUBIN,TOTAL 0.5 mg/dL (0.2-1.0); CREATININE 3.1 mg/dL (0.55-1.02); SGOT/AST 24 U/L (15-37); SGPT/ALT 43 U/L (12-78)
[2017-06-19] MEDS: predniSONE 10 MG TABLET (UD) PO SCH (09:27)
[2017-06-19] MEDS: TIOTROPIUM BROMIDE 18 MCG/INH (DEVICE W/ 5 CAPSULES) IH SCH (09:27)
[2017-06-19] MEDS: ESCITALOPRAM OXALATE 10 MG TABLET (FP) PO SCH (09:27)
[2017-06-19] MEDS: LORazepam 2 MG/ML SDV VIAL IVPUSH PRN (09:32)
[2017-06-19] MEDS: APIXABAN 2.5 MG TABLET PO SCH (09:39)
--- NOTE | 2017-06-19 10:18 | PN ---
Progress Note, Physician History of Present Illness: PULMONARY ALERT,C/O WEAKNESS ,+SOB WITH EXERTION,-COUGH,-CP - Current Medication List Current Medications: Active Medications Acetaminophen (Tylenol -) 650 mg PO Q6H PRN PRN Reason: FEVER OR PAIN Last Admin: 06/10/17 23:15 Dose: 650 mg Apixaban (Eliquis -) 2.5 mg PO BID [facility] Last Admin: 06/19/17 09:39 Dose: Not Given Diltiazem HCl (Cardizem Cd -) 180 mg PO DAILY [facility] Last Admin: 06/19/17 09:27 Dose: 180 mg Docusate Sodium (Colace -) 100 mg PO TID [facility] Last Admin: 06/19/17 06:56 Dose: Not Given Escitalopram Oxalate (Lexapro -) 10 mg PO DAILY [facility] Last Admin: 06/19/17 09:27 Dose: 10 mg Insulin Aspart (Novolog Vial Sliding Scale -) 1 vial SQ ACHS [facility] PRN Reason: Protocol Last Admin: 06/19/17 06:56 Dose: Not Given Lorazepam (Ativan Injection -) 0.5 mg IVPUSH Q6H PRN PRN Reason: ANXIETY Last Admin: 06/19/17 09:32 Dose: 0.5 mg Prednisone (Deltasone -) 10 mg PO DAILY [facility] Last Admin: 06/19/17 09:27 Dose: 10 mg Quetiapine Fumarate (Seroquel -) 25 mg PO HS [facility] Last Admin: 06/18/17 22:02 Dose: 25 mg Ranitidine HCl (Zantac -) 300 mg PO DAILY@1800 [facility] Last Admin: 06/18/17 17:20 Dose: Not Given Tiotropium [place] (Spiriva -) 1 puff IH DAILY [facility] Last Admin: 06/19/17 09:27 Dose: 1 pfu - Objective Vital Signs: Vital Signs Temperature 98.4 F 06/19/17 06:00 Pulse Rate 100 H 06/19/17 06:00 Respiratory Rate 18 06/19/17 06:00 Blood Pressure 140/81 06/19/17 06:00 O2 Sat by Pulse Oximetry (%) 99 06/18/17 21:00 Constitutional: Yes: Well Nourished, Calm Eyes: Yes: WNL HENT: Yes: WNL Neck: Yes: WNL Cardiovascular: Yes: Pulse Irregular, S1, S2 Respiratory: Yes: Diminished Gastrointestinal: Yes: Normal Bowel Sounds, Soft Extremities: Yes: WNL Edema: Yes Labs: CBC, BMP 06/17/17 05:05 06/19/17 05:48 INR, PTT INR 0.89 (0.82-1.09) 06/12/17 11:15 Assessment/Plan A/P S/P Acute hypoxemic respiratory failure improved AAA S/P EVAR Lung Ca s/p LLL lobectomy COPD Atrial Fibrillation Acute on chronic renal failure Pulmonary Htn Anemia Weakness ? Myopathy steroid,critical illness - Prednisone - HD as per renal - inhaled bronchodilators - incentive spirometry - DVT prophylaxis - strict I+Os - Pt - chest x-ray today DR CRUZ
--- NOTE | 2017-06-19 11:20 | PN ---
Progress Note, Physician Chief Complaint: ID No specific complaints Off antibiotics - Current Medication List Current Medications: Active Medications Acetaminophen (Tylenol -) 650 mg PO Q6H PRN PRN Reason: FEVER OR PAIN Last Admin: 06/10/17 23:15 Dose: 650 mg Apixaban (Eliquis -) 2.5 mg PO BID [facility] Last Admin: 06/19/17 09:39 Dose: Not Given Diltiazem HCl (Cardizem Cd -) 180 mg PO DAILY [facility] Last Admin: 06/19/17 09:27 Dose: 180 mg Docusate Sodium (Colace -) 100 mg PO TID [facility] Last Admin: 06/19/17 06:56 Dose: Not Given Escitalopram Oxalate (Lexapro -) 10 mg PO DAILY [facility] Last Admin: 06/19/17 09:27 Dose: 10 mg Insulin Aspart (Novolog Vial Sliding Scale -) 1 vial SQ ACHS [facility] PRN Reason: Protocol Last Admin: 06/19/17 06:56 Dose: Not Given Lorazepam (Ativan Injection -) 0.5 mg IVPUSH Q6H PRN PRN Reason: ANXIETY Last Admin: 06/19/17 09:32 Dose: 0.5 mg Prednisone (Deltasone -) 5 mg PO DAILY [facility] Quetiapine Fumarate (Seroquel -) 25 mg PO HS [facility] Last Admin: 06/18/17 22:02 Dose: 25 mg Ranitidine HCl (Zantac -) 300 mg PO DAILY@1800 [facility] Last Admin: 06/18/17 17:20 Dose: Not Given Tiotropium [place] (Spiriva -) 1 puff IH DAILY [facility] Last Admin: 06/19/17 09:27 Dose: 1 pfu - Objective Vital Signs: Vital Signs Temperature 98.4 F 06/19/17 06:00 Pulse Rate 100 H 06/19/17 06:00 Respiratory Rate 18 06/19/17 06:00 Blood Pressure 140/81 06/19/17 06:00 O2 Sat by Pulse Oximetry (%) 99 06/18/17 21:00 Constitutional: Yes: Well Nourished, No Distress HENT: Yes: WNL, Atraumatic Neck: Yes: WNL, Supple Cardiovascular: Yes: Regular Rate and Rhythm, S1, S2 Respiratory: Yes: WNL, Regular, CTA Bilaterally Gastrointestinal: Yes: WNL, Normal Bowel Sounds, Soft. No: Tenderness, Tenderness, Epigastrium Labs: CBC, BMP 06/17/17 05:05 06/19/17 05:48 INR, PTT INR 0.89 (0.82-1.09) 06/12/17 11:15 Problem List - Problems (1) Aby esophagitis Code(s): B37.81 - CANDIDAL ESOPHAGITIS (2) Sepsis Code(s): A41.9 - SEPSIS, UNSPECIFIED ORGANISM Assessment/Plan Microbiology 06/14/17 06:15 Stool Clostridium difficile Antigen (YOLI) - Final 06/14/17 06:15 Stool Clostridium difficile Toxin Assay - Final 06/11/17 12:36 Blood - Peripheral Venous Blood Culture - Final NO GROWTH AFTER 5 DAYS INCUBATION 06/11/17 12:25 Blood - Peripheral Venous Blood Culture - Final NO GROWTH AFTER 5 DAYS INCUBATION 06/05/17 12:58 Blood - Peripheral Venous Blood Culture - Final NO GROWTH AFTER 5 DAYS INCUBATION Laboratory Tests 06/17/17 06/19/17 05:05 05:48 WBC 29.6 H Hgb 9.8 L D Hct 31.2 L D Plt Count 246 BUN 80 H Creatinine 3.1 H Creat Clearance w eGFR 14.65 Assessmsent Leukocytosis unclear explanation for this so I stopped antibiotics Plan Repeat CBC today IF still high will repeat the cultures and reimage the abd pelvis and chest Bebo RAMIREZ
--- NOTE | 2017-06-19 13:11 | PN ---
Progress Note (short form) - Note Progress Note: RENAL Pt is awake and alert well known to me from office visits says shecant move her lower extremities from the weight Last Vital Signs Temp Pulse Resp BP Pulse Ox 97.8 F 86 22 152/76 98 06/19/17 10:00 06/19/17 10:00 06/19/17 10:00 06/19/17 10:00 06/19/17 09:00 lungs left lung clear, right decreased breath sounds cvs s1s2 rr abd soft, ext +4 edema neuro a+ox3 moves feet but cant raise her lower extremities CBC, BMP 06/17/17 05:05 06/19/17 05:48 Current Medications Generic Name Dose Route Start Last Admin Trade Name Freq PRN Reason Stop Dose Admin Acetaminophen 650 mg 06/02/17 19:24 06/10/17 23:15 Tylenol - PO 650 mg Q6H PRN Administration FEVER OR PAIN Apixaban 2.5 mg 06/14/17 11:00 06/19/17 09:39 Eliquis - PO Not Given BID ANNA Diltiazem HCl 180 mg 06/03/17 10:00 06/19/17 09:27 Cardizem Cd - PO 180 mg DAILY [facility] Administration Docusate Sodium 100 mg 06/02/17 22:00 06/19/17 06:56 Colace - PO Not Given TID [facility] Escitalopram Oxalate 10 mg 06/17/17 11:45 06/19/17 09:27 Lexapro - PO 10 mg DAILY [facility] Administration Insulin Aspart 1 vial 06/10/17 16:30 06/19/17 11:45 Novolog Vial Sliding Scale - SQ Not Given ACHS [facility] Protocol Lorazepam 0.5 mg 06/16/17 02:04 06/19/17 09:32 Ativan Injection - IVPUSH 0.5 mg Q6H PRN Administration ANXIETY Prednisone 5 mg 06/20/17 10:00 Deltasone - PO DAILY [facility] Quetiapine Fumarate 25 mg 06/13/17 22:00 06/18/17 22:02 Seroquel - PO 25 mg HS [facility] Administration Ranitidine HCl 300 mg 06/03/17 18:30 06/18/17 17:20 Zantac - PO Not Given DAILY@1800 [facility] Tiotropium [place] 1 puff 06/03/17 10:00 06/19/17 09:27 Spiriva - IH 1 pfu DAILY [facility] Administration IMPRESSION 1. CKD with acute component 2. AAA 3. lung cancer 4. HTN 5. a-fib 6. chol 7. hx hydropneumothorax 8. GI bleed 9. sepsis 10. leukocytosis 11. COLE 12. abdominal pain 13. hypoxia/erpiratory failure requiring bipap 14. hypermagnesemia requiring HD for removal 15. has fluid overload and her creatinine may be dilute suggesting a much worse level of renal function Plan will give trial of lasix should be fluid restricted at this point I informed her that she may need to go on dialysis MV
--- NOTE | 2017-06-19 13:27 | PN ---
Progress Note, Physician Chief Complaint: ASLEEP COMFORTABLE ON 02NC - Current Medication List Current Medications: Active Medications Acetaminophen (Tylenol -) 650 mg PO Q6H PRN PRN Reason: FEVER OR PAIN Last Admin: 06/10/17 23:15 Dose: 650 mg Apixaban (Eliquis -) 2.5 mg PO BID [facility] Last Admin: 06/19/17 09:39 Dose: Not Given Diltiazem HCl (Cardizem Cd -) 180 mg PO DAILY [facility] Last Admin: 06/19/17 09:27 Dose: 180 mg Docusate Sodium (Colace -) 100 mg PO TID [facility] Last Admin: 06/19/17 06:56 Dose: Not Given Escitalopram Oxalate (Lexapro -) 10 mg PO DAILY [facility] Last Admin: 06/19/17 09:27 Dose: 10 mg Furosemide (Lasix Injection -) 40 mg IVPUSH BID@0600,1400 [facility] Insulin Aspart (Novolog Vial Sliding Scale -) 1 vial SQ ACHS [facility] PRN Reason: Protocol Last Admin: 06/19/17 11:45 Dose: Not Given Lorazepam (Ativan Injection -) 0.5 mg IVPUSH Q6H PRN PRN Reason: ANXIETY Last Admin: 06/19/17 09:32 Dose: 0.5 mg Prednisone (Deltasone -) 5 mg PO DAILY [facility] Quetiapine Fumarate (Seroquel -) 25 mg PO HS [facility] Last Admin: 06/18/17 22:02 Dose: 25 mg Ranitidine HCl (Zantac -) 300 mg PO DAILY@1800 [facility] Last Admin: 06/18/17 17:20 Dose: Not Given Tiotropium [place] (Spiriva -) 1 puff IH DAILY [facility] Last Admin: 06/19/17 09:27 Dose: 1 pfu - Objective Vital Signs: Vital Signs Temperature 97.8 F 06/19/17 10:00 Pulse Rate 90 06/19/17 13:15 Respiratory Rate 22 06/19/17 10:00 Blood Pressure 152/76 06/19/17 10:00 O2 Sat by Pulse Oximetry (%) 98 06/19/17 13:15 Constitutional: Yes: Mild Distress Eyes: Yes: WNL HENT: Yes: WNL Neck: Yes: WNL Cardiovascular: Yes: Pulse Irregular Respiratory: Yes: On Nasal O2, Rhonchi Gastrointestinal: Yes: WNL Genitourinary: Yes: Incontinence Musculoskeletal: Yes: Muscle Weakness Extremities: Yes: Other Edema: Yes Edema: LLE: 2+, RLE: 2+ Peripheral Pulses WNL: Yes Integumentary: Yes: WNL Wound/Incision: Yes: Clean/Dry Neurological: Yes: Weakness ...Motor Strength: LLE, RLE Psychiatric: Yes: Other Labs: CBC, BMP 06/17/17 05:05 06/19/17 05:48 INR, PTT INR 0.89 (0.82-1.09) 06/12/17 11:15 Problem List - Problems (1) [place] Code(s): K92.1 - MELENA (2) Stool guaiac positive Code(s): R19.5 - OTHER FECAL ABNORMALITIES (3) Abdominal aneurysm Code(s): I71.4 - ABDOMINAL AORTIC ANEURYSM, WITHOUT RUPTURE (4) Atrial fibrillation Code(s): I48.91 - UNSPECIFIED ATRIAL FIBRILLATION Qualifiers: Atrial fibrillation type: persistent Qualified Code(s): I48.1 - Persistent atrial fibrillation (5) COPD (chronic obstructive pulmonary disease) Code(s): J44.9 - CHRONIC OBSTRUCTIVE PULMONARY DISEASE, UNSPECIFIED Qualifiers: Emphysema type: centrilobular (6) Chronic renal disease Code(s): N18.9 - CHRONIC KIDNEY DISEASE, UNSPECIFIED Qualifiers: Chronic kidney disease stage: stage 4 (severe) Qualified Code(s): N18.4 - Chronic kidney disease, stage 4 (severe) (7) Constipation Code(s): K59.00 - CONSTIPATION, UNSPECIFIED (8) Lung malignancy Code(s): C34.90 - MALIGNANT NEOPLASM OF UNSP PART OF UNSP BRONCHUS OR LUNG Qualifiers: Laterality: left Assessment/Plan AGREE WITH NEPHROLOGY PATIENT CAN BENEFIT WITH LASIX IV MAY NOT NEED THORACENTESIS IF LASIX DIURESIS WORKS ELIQUIS CONTINUE THEN STOP TONIGHT FOR POSSIBLE THORACENTESIS WEDNESDAY
[2017-06-19] MEDS: FUROSEMIDE 40 MG/4 ML INJECTABLE VIAL IVPUSH SCH (13:58)
--- NOTE | 2017-06-19 14:01 | PN ---
Progress Note (short form) - Note Progress Note: c/o bodyache Blood sugar improving with decrease in steroid dosing No Hypos Vital Signs Period Temp Pulse Resp BP Sys/Sellers Pulse Ox Last 24 Hr 97.3 F-98.4 F 82-100 18-22 137-152/66-98 98-99 PE: AOx3 Neck: Supple, No JVD Lungs: few rhonchi HEEENT: EOMI CVS: S1S2 Abd: Benign Ext: +Edema CBC,CMP WBC 29.6 K/mm3 (4.0-10.0) H 06/17/17 05:05 RBC 3.33 M/mm3 (3.60-5.2) L 06/17/17 05:05 Hgb 9.8 GM/dL (10.7-15.3) L D 06/17/17 05:05 Hct 31.2 % (32.4-45.2) L D 06/17/17 05:05 MCV 93.5 fl (80-96) 06/17/17 05:05 MCH 29.5 pg (25.7-33.7) 06/17/17 05:05 MCHC 31.5 g/dl (32.0-36.0) L 06/17/17 05:05 RDW 15.3 % (11.6-15.6) 06/17/17 05:05 Plt Count 246 K/MM3 (134-434) 06/17/17 05:05 MPV 8.4 fl (7.5-11.1) 06/17/17 05:05 Total Counted 100 06/12/17 05:05 Neutrophils % No Result Required. 06/12/17 05:05 Neutrophils % (Manual) 98.0 % (42.8-82.8) H* 06/12/17 05:05 Band Neutrophils % 1.0 % 06/12/17 05:05 Lymphocytes % No Result Required. 06/12/17 05:05 Lymphocytes % (Manual) 1.0 % (8-40) L D 06/11/17 05:37 Monocytes % 7.2 % (3.8-10.2) 05/25/17 13:15 Monocytes % (Manual) 1 % (3.8-10.2) L 06/12/17 05:05 Eosinophils % 0.6 % (0-4.5) D 05/25/17 13:15 Eosinophils % (Manual) 0.0 % (0-4.5) 06/11/17 05:37 Basophils % 0.3 % (0-2.0) 05/25/17 13:15 Basophils % (Manual) 0.0 % (0-2.0) 06/11/17 05:37 Myelocytes % (Man) 1 % (0-2) 06/11/17 05:37 Nucleated RBC % 1 % (0-0) H 06/07/17 05:28 Metamyelocytes 2 % (0-2) 06/11/17 05:37 Hypochromia 0 06/11/17 05:37 Toxic Granulation 0 06/07/17 05:28 Dohle Bodies 0 06/07/17 05:28 Platelet Estimate Adequate 06/12/17 05:05 Polychromasia 0 06/11/17 05:37 Poikilocytosis 1+ 06/11/17 05:37 Basophilic Stippling 0 06/07/17 05:28 Anisocytosis 3+ 06/11/17 05:37 Microcytosis 3+ 06/11/17 05:37 Macrocytosis 0 06/11/17 05:37 Spherocytes 0 06/07/17 05:28 Sickle Cells 0 06/07/17 05:28 Target Cells 0 06/07/17 05:28 Tear Drop Cells 0 06/07/17 05:28 Ovalocytes 0 06/07/17 05:28 Stomatocytes 0 06/07/17 05:28 Helmet Cells 0 06/07/17 05:28 [place] Bodies 0 06/07/17 05:28 [place] Rings 0 06/07/17 05:28 [place] Cells 0 06/07/17 05:28 Acanthocytes (Spur) 0 06/07/17 05:28 Fragmented RBCs 0 06/07/17 05:28 Schistocytes 0 06/07/17 05:28 Sodium 143 mmol/L (136-145) 06/19/17 05:48 Potassium 4.9 mmol/L (3.5-5.1) 06/19/17 05:48 Chloride 107 mmol/L (98-107) 06/19/17 05:48 Carbon Dioxide 26 mmol/L (21-32) 06/19/17 05:48 Anion Gap 10 (8-16) 06/19/17 05:48 BUN 80 mg/dL (7-18) H 06/19/17 05:48 Creatinine 3.1 mg/dL (0.55-1.02) H 06/19/17 05:48 Creat Clearance w eGFR 14.65 (>60) 06/19/17 05:48 POC Glucometer 136 UNITS (80-120) 06/19/17 11:39 Random Glucose 81 mg/dL (74-106) D 06/19/17 05:48 Hemoglobin A1c % 7.3 % (4.8-6.0) H 06/16/17 19:00 Lactic Acid 0.6 mmol/L (0.4-2.0) 06/14/17 11:38 Calcium 7.8 mg/dL (8.5-10.1) L 06/19/17 05:48 Phosphorus 4.2 mg/dL (2.5-4.9) 06/15/17 05:05 Magnesium 3.4 mg/dL (1.8-2.4) H 06/19/17 05:48 Iron 32 ug/dL (27-139) 06/12/17 05:05 TIBC 230 ug/dL (250-450) L 06/12/17 05:05 Iron Saturation 14 % (15-55) L 06/12/17 05:05 Ferritin 100.588 ng/ml (6.9-282.5) 06/12/17 05:05 Total Bilirubin 0.5 mg/dL (0.2-1.0) 06/19/17 05:48 Direct Bilirubin < 0.2 mg/dL (0.0-0.2) 06/13/17 06:00 AST 24 U/L (15-37) D 06/19/17 05:48 ALT 43 U/L (12-78) D 06/19/17 05:48 Alkaline Phosphatase 75 U/L (45-117) 06/19/17 05:48 Creatine Kinase 105 IU/L (26-192) 06/11/17 08:10 Troponin I 0.02 ng/ml (0.00-0.05) 06/11/17 08:10 C-Reactive Protein Cancelled 06/14/17 07:50 B-Natriuretic Peptide 7287.04 pg/ml (5-450) H 11/28/17 13:15 Total Protein 5.0 g/dl (6.4-8.2) L 06/19/17 05:48 Albumin 2.2 g/dl (3.4-5.0) L 06/19/17 05:48 Lipase 319 U/L (73-393) 05/25/17 13:15 Current Medications Generic Name Dose Route Start Last Admin Trade Name Freq PRN Reason Stop Dose Admin Acetaminophen 650 mg 06/02/17 19:24 06/10/17 23:15 Tylenol - PO 650 mg Q6H PRN Administration FEVER OR PAIN Apixaban 2.5 mg 06/14/17 11:00 06/19/17 09:39 Eliquis - PO Not Given BID ANNA Diltiazem HCl 180 mg 06/03/17 10:00 06/19/17 09:27 Cardizem Cd - PO 180 mg DAILY [facility] Administration Docusate Sodium 100 mg 06/02/17 22:00 06/19/17 06:56 Colace - PO Not Given TID [facility]NA Escitalopram Oxalate 10 mg 06/17/17 11:45 06/19/17 09:27 Lexapro - PO 10 mg DAILY [facility] Administration Furosemide 40 mg 06/19/17 14:00 06/19/17 13:58 Lasix Injection - IVPUSH 40 mg BID@0600,1400 [facility] Administration Insulin Aspart 1 vial 06/10/17 16:30 06/19/17 11:45 Novolog Vial Sliding Scale - SQ Not Given ACHS [facility] Protocol Lorazepam 0.5 mg 06/16/17 02:04 06/19/17 09:32 Ativan Injection - IVPUSH 0.5 mg Q6H PRN Administration ANXIETY Prednisone 5 mg 06/20/17 10:00 Deltasone - PO DAILY [facility] Quetiapine Fumarate 25 mg 06/13/17 22:00 06/18/17 22:02 Seroquel - PO 25 mg HS [facility] Administration Ranitidine HCl 300 mg 06/03/17 18:30 06/18/17 17:20 Zantac - PO Not Given DAILY@1800 [facility] Tiotropium [place] 1 puff 06/03/17 10:00 06/19/17 09:27 Spiriva - IH 1 pfu DAILY [facility] Administration AP: T2DM AAA s/P endovascular repair lung cancer s/P lobectomy HTN A Fib CKD [place] Leukocytosis BGM QACHS Novolog SS coverage HbA1c 7.3 Blood sugar improving on decrease in steroid dose, prednisone 5mg daily now. Monitor bood sugar without adding antidiabetic medication for now. ID, Nephrology notes noted. Will f/u Problem List - Problems (1) Abdominal aortic aneurysm (AAA) Code(s): I71.4 - ABDOMINAL AORTIC ANEURYSM, WITHOUT RUPTURE Qualifiers: Presence of rupture: without rupture Qualified Code(s): I71.4 - Abdominal aortic aneurysm, without rupture (2) Abdominal pain Code(s): R10.9 - UNSPECIFIED ABDOMINAL PAIN (3) COPD exacerbation Code(s): J44.1 - CHRONIC OBSTRUCTIVE PULMONARY DISEASE W (ACUTE) EXACERBATION (4) S/P lobectomy of lung Code(s): Z90.2 - ACQUIRED ABSENCE OF LUNG [PART OF] (5) Atrial fibrillation Code(s): I48.91 - UNSPECIFIED ATRIAL FIBRILLATION Qualifiers: Atrial fibrillation type: persistent Qualified Code(s): I48.1 - Persistent atrial fibrillation
[2017-06-19] MEDS: RANITIDINE HCL 150 MG TABLET (FP) PO SCH (19:43)
[2017-06-19] MEDS: QUEtiapine FUMARATE 25 MG TABLET (FP) PO SCH (21:21)
--- NOTE | 2017-06-20 04:52 | HOSP ---
Subjective - Review of Symptoms Events since last encounter: Hospitalist Encounter Notified by the RN that the patient of Dr. Truong is having chest tightness. Arrived to bedside, patient is alert, awake and oriented, appears anxious. Plan: Stat EKG, Trop I Chest Xray, Ativan Reviewed EKG- Afib 92 bpm with PVCs, Chest Xray pending Pulmonary: Yes: Dyspnea Cardiovascular: Yes: Chest Pain, Palpitations Physical Examination Vital Signs: Vital Signs Temperature 97.8 F 06/20/17 01:00 Pulse Rate 81 06/20/17 01:00 Respiratory Rate 20 06/20/17 01:00 Blood Pressure 142/68 06/20/17 01:00 O2 Sat by Pulse Oximetry (%) 100 06/19/17 21:00 Constitutional: Yes: Anxious, Mild Distress HENT: Yes: WNL, Atraumatic, Normocephalic Neck: Yes: WNL, Supple, Trachea Midline Cardiovascular: Yes: Pulse Irregular Respiratory: Yes: Diminished, On Nasal O2 Extremities: Yes: WNL Neurological: Yes: WNL, Alert, Oriented Psychiatric: Yes: WNL, Alert, Oriented, Agitated Labs: CBC, BMP 06/17/17 05:05 06/19/17 05:48
[2017-06-20] MEDS: DOCUSATE SODIUM 100 MG CAPSULE (FP) PO SCH ×3 (05:14→21:53)
[2017-06-20] MEDS: FUROSEMIDE 40 MG/4 ML INJECTABLE VIAL IVPUSH SCH ×2 (05:14→13:53)
[2017-06-20] MEDS: INSULIN SLIDING SCALE (NOVOLOG) 1 VIAL SQ SCH ×4 (06:32→22:15)
[2017-06-20] MEDS: LORazepam 2 MG/ML SDV VIAL IVPUSH PRN ×2 (06:35→14:08)
[2017-06-20 07:57] LABS: HEMATOCRIT 28.7 % (32.4-45.2); HEMOGLOBIN 9.1 GM/dL (10.7-15.3); MCH 29.4 pg (25.7-33.7); MCHC 31.7 g/dl (32.0-36.0); MEAN CELL VOLUME 92.7 fl (80-96); MEAN PLT VOLUME 8.9 fl (7.5-11.1); PLATELET COUNT 188 K/MM3 (134-434); RDW 15.6 % (11.6-15.6); WHITE BLOOD COUNT 19.7 K/mm3 (4.0-10.0)
--- NOTE | 2017-06-20 10:00 | PN ---
Progress Note, Physician History of Present Illness: PULMONARY NO DISTRESS,COMFORTABLE AT REST,WEAK - Current Medication List Current Medications: Active Medications Acetaminophen (Tylenol -) 650 mg PO Q6H PRN PRN Reason: FEVER OR PAIN Last Admin: 06/10/17 23:15 Dose: 650 mg Apixaban (Eliquis -) 2.5 mg PO BID [facility] Last Admin: 06/19/17 09:39 Dose: Not Given Diltiazem HCl (Cardizem Cd -) 180 mg PO DAILY [facility] Last Admin: 06/19/17 09:27 Dose: 180 mg Docusate Sodium (Colace -) 100 mg PO TID [facility] Last Admin: 06/20/17 05:14 Dose: Not Given Escitalopram Oxalate (Lexapro -) 10 mg PO DAILY [facility] Last Admin: 06/19/17 09:27 Dose: 10 mg Furosemide (Lasix Injection -) 40 mg IVPUSH BID@0600,1400 [facility] Last Admin: 06/20/17 05:14 Dose: 40 mg Insulin Aspart (Novolog Vial Sliding Scale -) 1 vial SQ ACHS [facility] PRN Reason: Protocol Last Admin: 06/20/17 06:32 Dose: Not Given Lorazepam (Ativan Injection -) 0.5 mg IVPUSH Q6H PRN PRN Reason: ANXIETY Last Admin: 06/20/17 06:35 Dose: 0.5 mg Prednisone (Deltasone -) 5 mg PO DAILY [facility] Quetiapine Fumarate (Seroquel -) 25 mg PO HS [facility] Last Admin: 06/19/17 21:21 Dose: 25 mg Ranitidine HCl (Zantac -) 300 mg PO DAILY@1800 [facility] Last Admin: 06/19/17 19:43 Dose: Not Given Tiotropium [place] (Spiriva -) 1 puff IH DAILY [facility] Last Admin: 06/19/17 09:27 Dose: 1 pfu - Objective Vital Signs: Vital Signs Temperature 98.1 F 06/20/17 05:00 Pulse Rate 98 H 06/20/17 05:00 Respiratory Rate 20 06/20/17 05:00 Blood Pressure 164/80 06/20/17 05:00 O2 Sat by Pulse Oximetry (%) 100 06/19/17 21:00 Constitutional: Yes: Well Nourished, Calm Eyes: Yes: WNL HENT: Yes: WNL Neck: Yes: WNL Cardiovascular: Yes: Pulse Irregular, S1, S2 Respiratory: Yes: Rales (BIBASILAR CRACKLES) Gastrointestinal: Yes: Normal Bowel Sounds, Soft Musculoskeletal: Yes: Muscle Weakness Extremities: Yes: WNL Edema: Yes Labs: CBC, BMP 06/20/17 05:45 - ....Imaging Chest X-ray: Report Reviewed, Image Reviewed (NO CHANGE LUTHER PLEURAL EFFUSIONS) Assessment/Plan A/P S/P Acute hypoxemic respiratory failure improved AAA S/P EVAR Lung Ca s/p LLL lobectomy COPD Atrial Fibrillation Acute on chronic renal failure Pulmonary Htn Anemia Weakness ? Myopathy steroid,critical illness - Prednisone - HD as per renal - inhaled bronchodilators - incentive spirometry - DVT prophylaxis - strict I+Os - Pt DR CRUZ
[2017-06-20] MEDS: ESCITALOPRAM OXALATE 10 MG TABLET (FP) PO SCH (10:41)
[2017-06-20] MEDS: predniSONE 5 MG TABLET (UD) PO SCH (10:41)
[2017-06-20] MEDS: TIOTROPIUM BROMIDE 18 MCG/INH (DEVICE W/ 5 CAPSULES) IH SCH (10:41)
--- NOTE | 2017-06-20 11:43 | PN ---
Progress Note (short form) - Note Progress Note: RENAL Pt is awake and alert well known to me from office visits says she urinated a lot and is breathing better Last Vital Signs Temp Pulse Resp BP Pulse Ox 98.1 F 98 H 20 164/80 100 06/20/17 05:00 06/20/17 05:00 06/20/17 05:00 06/20/17 05:00 06/19/17 21:00 lungs left lung clear, right decreased breath sounds cvs s1s2 rr abd soft, ext +4 edema neuro a+ox3 moves feet but cant raise her lower extremities Current Medications Generic Name Dose Route Start Last Admin Trade Name Freq PRN Reason Stop Dose Admin Acetaminophen 650 mg 06/02/17 19:24 06/10/17 23:15 Tylenol - PO 650 mg Q6H PRN Administration FEVER OR PAIN Apixaban 2.5 mg 06/14/17 11:00 06/19/17 09:39 Eliquis - PO Not Given BID [facility] Diltiazem HCl 180 mg 06/03/17 10:00 06/20/17 10:41 Cardizem Cd - PO 180 mg DAILY [facility] Administration Docusate Sodium 100 mg 06/02/17 22:00 06/20/17 05:14 Colace - PO Not Given TID [facility] Escitalopram Oxalate 10 mg 06/17/17 11:45 06/20/17 10:41 Lexapro - PO 10 mg DAILY [facility] Administration Furosemide 40 mg 06/19/17 14:00 06/20/17 05:14 Lasix Injection - IVPUSH 40 mg BID@0600,1400 [facility] Administration Insulin Aspart 1 vial 06/10/17 16:30 06/20/17 06:32 Novolog Vial Sliding Scale - SQ Not Given ACHS [facility] Protocol Lorazepam 0.5 mg 06/16/17 02:04 06/20/17 06:35 Ativan Injection - IVPUSH 0.5 mg Q6H PRN Administration ANXIETY Prednisone 5 mg 06/20/17 10:00 06/20/17 10:41 Deltasone - PO 5 mg DAILY [facility] Administration Quetiapine Fumarate 25 mg 06/13/17 22:00 06/19/17 21:21 Seroquel - PO 25 mg HS [facility] Administration Ranitidine HCl 300 mg 06/03/17 18:30 06/19/17 19:43 Zantac - PO Not Given DAILY@1800 [facility] Tiotropium [place] 1 puff 06/03/17 10:00 06/20/17 10:41 Spiriva - IH 1 pfu DAILY [facility] Administration CBC, BMP 06/20/17 05:45 06/19/17 05:48 IMPRESSION 1. CKD with acute component 2. AAA 3. lung cancer 4. HTN 5. a-fib 6. chol 7. hx hydropneumothorax 8. GI bleed 9. sepsis 10. leukocytosis 11. COLE 12. abdominal pain 13. hypoxia/erpiratory failure requiring bipap 14. hypermagnesemia requiring HD for removal 15. has fluid overload and her creatinine may be dilute suggesting a much worse level of renal function Plan cfontinue lasix for now- pleural effusion may improve should be fluid restricted at this point I informed her that she may need to go on dialysis repeat labs MV
[2017-06-20 12:11] LABS: ACANTHOCYTES 0; ANISOCYTOSIS 0; HELMET CELLS 0; HOWELL-JOLLY BODIES 0; MACROCYTOSIS 0; OVALOCYTE 0; PLATELET ESTIMATE NORMAL; SICKELED CELLS 0; TARGET CELLS 0; TEAR DROP CELLS 0; TOXIC GRANULATION 0
--- NOTE | 2017-06-20 15:49 | PN ---
Progress Note, Physician Chief Complaint: AWAKE ALERT REPORTS SHE HAS SKIN ULCERS - Current Medication List Current Medications: Active Medications Acetaminophen (Tylenol -) 650 mg PO Q6H PRN PRN Reason: FEVER OR PAIN Last Admin: 06/10/17 23:15 Dose: 650 mg Apixaban (Eliquis -) 2.5 mg PO BID [facility] Last Admin: 06/19/17 09:39 Dose: Not Given Diltiazem HCl (Cardizem Cd -) 180 mg PO DAILY [facility] Last Admin: 06/20/17 10:41 Dose: 180 mg Docusate Sodium (Colace -) 100 mg PO TID [facility] Last Admin: 06/20/17 13:53 Dose: Not Given Escitalopram Oxalate (Lexapro -) 10 mg PO DAILY [facility] Last Admin: 06/20/17 10:41 Dose: 10 mg Furosemide (Lasix Injection -) 40 mg IVPUSH BID@0600,1400 [facility] Last Admin: 06/20/17 13:53 Dose: 40 mg Insulin Aspart (Novolog Vial Sliding Scale -) 1 vial SQ ACHS [facility] PRN Reason: Protocol Last Admin: 06/20/17 12:17 Dose: Not Given Lorazepam (Ativan Injection -) 0.5 mg IVPUSH Q6H PRN PRN Reason: ANXIETY Last Admin: 06/20/17 14:08 Dose: 0.5 mg Prednisone (Deltasone -) 5 mg PO DAILY [facility] Last Admin: 06/20/17 10:41 Dose: 5 mg Quetiapine Fumarate (Seroquel -) 25 mg PO HS [facility] Last Admin: 06/19/17 21:21 Dose: 25 mg Ranitidine HCl (Zantac -) 300 mg PO DAILY@1800 [facility] Last Admin: 06/19/17 19:43 Dose: Not Given Tiotropium [place] (Spiriva -) 1 puff IH DAILY [facility] Last Admin: 06/20/17 10:41 Dose: 1 pfu - Objective Vital Signs: Vital Signs Temperature 97.8 F 06/20/17 09:00 Pulse Rate 96 H 06/20/17 09:00 Respiratory Rate 20 06/20/17 09:00 Blood Pressure 152/76 06/20/17 09:00 O2 Sat by Pulse Oximetry (%) 98 06/20/17 10:20 Constitutional: Yes: Mild Distress Eyes: Yes: WNL HENT: Yes: WNL Neck: Yes: WNL Cardiovascular: Yes: Pulse Irregular Respiratory: Yes: On Nasal O2, Poor Air Entry Gastrointestinal: Yes: WNL Genitourinary: Yes: Other Musculoskeletal: Yes: Muscle Weakness Extremities: Yes: Other Edema: Yes Peripheral Pulses WNL: Yes Integumentary: Yes: WNL, Skin Tear, Other Wound/Incision: Yes: Other Neurological: Yes: Pre-Existing Deficit ...Motor Strength: LLE, RLE Psychiatric: Yes: Other Labs: CBC, BMP 06/20/17 05:45 06/19/17 05:48 INR, PTT INR 0.89 (0.82-1.09) 06/12/17 11:15 Problem List - Problems (1) Melena Code(s): K92.1 - MELENA (2) Stool guaiac positive Code(s): R19.5 - OTHER FECAL ABNORMALITIES (3) Abdominal aneurysm Code(s): I71.4 - ABDOMINAL AORTIC ANEURYSM, WITHOUT RUPTURE (4) Atrial fibrillation Code(s): I48.91 - UNSPECIFIED ATRIAL FIBRILLATION Qualifiers: Atrial fibrillation type: persistent Qualified Code(s): I48.1 - Persistent atrial fibrillation (5) COPD (chronic obstructive pulmonary disease) Code(s): J44.9 - CHRONIC OBSTRUCTIVE PULMONARY DISEASE, UNSPECIFIED Qualifiers: Emphysema type: centrilobular (6) Chronic renal disease Code(s): N18.9 - CHRONIC KIDNEY DISEASE, UNSPECIFIED Qualifiers: Chronic kidney disease stage: stage 4 (severe) Qualified Code(s): N18.4 - Chronic kidney disease, stage 4 (severe) (7) Constipation Code(s): K59.00 - CONSTIPATION, UNSPECIFIED (8) Lung malignancy Code(s): C34.90 - MALIGNANT NEOPLASM OF UNSP PART OF UNSP BRONCHUS OR LUNG Qualifiers: Laterality: left Assessment/Plan CANCEL THORACENTESIS FOR WEDNESDAY RESTART ELIQUIS LASIX BID LIKELY WILL NEED HD PER RENAL PT DISCHARGE WEDNESDAY IF CLEARED BY NEPHROLOGY AND PULMONARY
[2017-06-20] MEDS: RANITIDINE HCL 150 MG TABLET (FP) PO SCH (17:10)
--- NOTE | 2017-06-20 17:13 | EKG ---
Test Reason : Blood Pressure : / mmHG Vent. Rate : 090 BPM Atrial Rate : 357 BPM P-R Int : 000 ms QRS Dur : 118 ms QT Int : 386 ms P-R-T Axes : 000 083 031 degrees QTc Int : 472 ms ATRIAL FIBRILLATION WITH PREMATURE VENTRICULAR OR ABERRANTLY CONDUCTED COMPLEXES INCOMPLETE RIGHT BUNDLE BRANCH BLOCK ABNORMAL ECG WHEN COMPARED WITH ECG OF 14-JUN-2017 09:01, T WAVE INVERSION NO LONGER EVIDENT IN ANTEROLATERAL LEADS Confirmed by HAVEN PARKINSON MD ([id number]) on 06/20/2017 5:13:45 PM Referred By: Confirmed By:HAVEN PARKINSON MD
--- NOTE | 2017-06-20 21:00 | HOSP ---
Subjective - Review of Symptoms Events since last encounter: Hospitalist Encounter Notified by RN that the patient of Dr. Truong, thoracentesis has been cancelled. After reviewing Dr. Truong's progress note, Lyly was resumed for tonight. A/P 77 yo female PMH CKD, HTN, COPD and lung cancer s/p lobectomy ~3months ago, a- fib on Eliquis who presents to ED with c/o weakness, n/v and dark stools. She is found to have a AAA that has increased in size (5.4 to 5.8cm) during her hospitalization. She is now s/p and EVAR of the AAA on 05/31. Physical Examination Vital Signs: Vital Signs Temperature 98.5 F 06/20/17 20:38 Pulse Rate 96 H 06/20/17 20:38 Respiratory Rate 20 06/20/17 20:38 Blood Pressure 133/72 06/20/17 20:38 O2 Sat by Pulse Oximetry (%) 98 06/20/17 20:38 Labs: CBC, BMP 06/20/17 05:45 06/19/17 05:48 Laboratory Results - last 24 hr 06/19/17 06/20/17 06/20/17 21:20 05:10 05:45 WBC 19.7 H D RBC 3.10 L Hgb 9.1 L Hct 28.7 L MCV 92.7 MCH 29.4 MCHC 31.7 L RDW 15.6 Plt Count 188 D MPV 8.9 Neutrophils % No Result Required. Neutrophils % (Manual) 93.9 H* Band Neutrophils % 0.0 Lymphocytes % No Result Required. Lymphocytes % (Manual) 2.0 L D Monocytes % (Manual) 4 D Eosinophils % (Manual) 0.0 Basophils % (Manual) 0.0 Myelocytes % (Man) 0 D Metamyelocytes 0 D Hypochromia 0 Toxic Granulation 0 Dohle Bodies 0 Platelet Estimate Normal Polychromasia 0 Poikilocytosis 0 Basophilic Stippling 0 Anisocytosis 0 Microcytosis 0 Macrocytosis 0 Spherocytes 0 Sickle Cells 0 Target Cells 0 Tear Drop Cells 0 Ovalocytes 0 Stomatocytes 0 Helmet Cells 0 Loco-[place] Bodies 0 [place] Rings 0 [place] Cells 0 Acanthocytes (Spur) 0 Fragmented RBCs 0 Schistocytes 0 POC Glucometer 168 Troponin I 0.02 06/20/17 06/20/17 06/20/17 06:31 12:14 16:43 WBC RBC Hgb Hct MCV MCH MCHC RDW Plt Count MPV Neutrophils % Neutrophils % (Manual) Band Neutrophils % Lymphocytes % Lymphocytes % (Manual) Monocytes % (Manual) Eosinophils % (Manual) Basophils % (Manual) Myelocytes % (Man) Metamyelocytes Hypochromia Toxic Granulation Dohle Bodies Platelet Estimate Polychromasia Poikilocytosis Basophilic Stippling Anisocytosis Microcytosis Macrocytosis Spherocytes Sickle Cells Target Cells Tear Drop Cells Ovalocytes Stomatocytes Helmet Cells Loco[place] Bodies [place] Rings [place] Cells Acanthocytes (Spur) Fragmented RBCs Schistocytes POC Glucometer 111 137 247 Troponin I
[2017-06-20] MEDS ORDERED: INSULIN (NOVOLOG) ASPART 100 UNITS/ML 10ML VIAL ONE (21:55)
[2017-06-20] MEDS: APIXABAN 2.5 MG TABLET PO SCH (22:15)
[2017-06-20] MEDS: QUEtiapine FUMARATE 25 MG TABLET (FP) PO SCH (22:15)
[2017-06-21] MEDS: DOCUSATE SODIUM 100 MG CAPSULE (FP) PO SCH ×3 (06:08→21:36)
[2017-06-21] MEDS: INSULIN SLIDING SCALE (NOVOLOG) 1 VIAL SQ SCH ×4 (06:12→21:35)
[2017-06-21] MEDS: FUROSEMIDE 40 MG/4 ML INJECTABLE VIAL IVPUSH SCH ×2 (06:16→14:36)
[2017-06-21 07:49] LABS: HEMATOCRIT 27.7 % (32.4-45.2); HEMOGLOBIN 8.9 GM/dL (10.7-15.3); MCH 29.8 pg (25.7-33.7); MEAN CELL VOLUME 93.3 fl (80-96); PLATELET COUNT 159 K/MM3 (134-434); RBC 2.97 M/mm3 (3.60-5.2); RDW 15.8 % (11.6-15.6); WHITE BLOOD COUNT 15.8 K/mm3 (4.0-10.0)
[2017-06-21 08:18] LABS: ANION GAP 13 (8-16); BLOOD UREA NITROGEN 73 mg/dL (7-18); CALCIUM 7.9 mg/dL (8.5-10.1); CHLORIDE 104 mmol/L (98-107); CO2 26 mmol/L (21-32); CREATININE 2.8 mg/dL (0.55-1.02); GLUCOSE,RANDOM 96 mg/dL (74-106); POTASSIUM 4.4 mmol/L (3.5-5.1); SODIUM 143 mmol/L (136-145)
--- NOTE | 2017-06-21 10:28 | PN ---
Progress Note, Physician History of Present Illness: PULMONARY ALERT ,NO ACUTE DISTRESS,C/O WEAKNESS - Current Medication List Current Medications: Active Medications Acetaminophen (Tylenol -) 650 mg PO Q6H PRN PRN Reason: FEVER OR PAIN Last Admin: 06/10/17 23:15 Dose: 650 mg Apixaban (Eliquis -) 2.5 mg PO BID [facility] Last Admin: 06/20/17 22:15 Dose: 2.5 mg Diltiazem HCl (Cardizem Cd -) 180 mg PO DAILY [facility] Last Admin: 06/20/17 10:41 Dose: 180 mg Docusate Sodium (Colace -) 100 mg PO TID [facility] Last Admin: 06/21/17 06:08 Dose: Not Given Escitalopram Oxalate (Lexapro -) 10 mg PO DAILY [facility] Last Admin: 06/20/17 10:41 Dose: 10 mg Furosemide (Lasix Injection -) 40 mg IVPUSH BID@0600,1400 [facility] Last Admin: 06/21/17 06:16 Dose: 40 mg Insulin Aspart (Novolog Vial Sliding Scale -) 1 vial SQ ACHS [facility] PRN Reason: Protocol Last Admin: 06/21/17 06:12 Dose: Not Given Lorazepam (Ativan Injection -) 0.5 mg IVPUSH Q6H PRN PRN Reason: ANXIETY Last Admin: 06/20/17 14:08 Dose: 0.5 mg Prednisone (Deltasone -) 5 mg PO DAILY [facility] Last Admin: 06/20/17 10:41 Dose: 5 mg Quetiapine Fumarate (Seroquel -) 25 mg PO HS [facility] Last Admin: 06/20/17 22:15 Dose: 25 mg Ranitidine HCl (Zantac -) 300 mg PO DAILY@1800 [facility] Last Admin: 06/20/17 17:10 Dose: Not Given Tiotropium [place] (Spiriva -) 1 puff IH DAILY [facility] Last Admin: 06/20/17 10:41 Dose: 1 pfu - Objective Vital Signs: Vital Signs Temperature 98.1 F 06/21/17 05:47 Pulse Rate 82 06/21/17 05:47 Respiratory Rate 20 06/21/17 05:47 Blood Pressure 145/57 06/21/17 05:47 O2 Sat by Pulse Oximetry (%) 98 06/20/17 20:38 Constitutional: Yes: Well Nourished, Calm Eyes: Yes: WNL HENT: Yes: WNL Neck: Yes: WNL Cardiovascular: Yes: Pulse Irregular, S1, S2 Respiratory: Yes: Rales (BIBASILAR CRACKLES) Gastrointestinal: Yes: Normal Bowel Sounds, Soft Extremities: Yes: WNL Edema: Yes Labs: CBC, BMP 06/21/17 05:45 06/21/17 05:45 INR, PTT INR 0.89 (0.82-1.09) 06/12/17 11:15 - ....Imaging Chest X-ray: Report Reviewed, Image Reviewed (BILATERAL CONGESTION,LUTHER PLEURAL EFFUSIONS) Assessment/Plan A/P S/P Acute hypoxemic respiratory failure improved AAA S/P EVAR Lung Ca s/p LLL lobectomy COPD Atrial Fibrillation Acute on chronic renal failure Pulmonary Htn Anemia Weakness ? Myopathy steroid,critical illness - Prednisone - HD as per renal - inhaled bronchodilators - incentive spirometry - DVT prophylaxis - strict I+Os - Lasix - PT DR CRUZ
[2017-06-21] MEDS: predniSONE 5 MG TABLET (UD) PO SCH (10:43)
[2017-06-21] MEDS: APIXABAN 2.5 MG TABLET PO SCH ×2 (10:43→21:36)
[2017-06-21] MEDS: ESCITALOPRAM OXALATE 10 MG TABLET (FP) PO SCH (10:43)
[2017-06-21] MEDS: TIOTROPIUM BROMIDE 18 MCG/INH (DEVICE W/ 5 CAPSULES) IH SCH (10:44)
[2017-06-21] MEDS: LORazepam 2 MG/ML SDV VIAL IVPUSH PRN (11:52)
--- NOTE | 2017-06-21 15:28 | PN ---
Progress Note, Physician History of Present Illness: Pt seen and examined at bedside. She is awake and alert. She complains of lower ext edema. - Current Medication List Current Medications: Active Medications Acetaminophen (Tylenol -) 650 mg PO Q6H PRN PRN Reason: FEVER OR PAIN Last Admin: 06/10/17 23:15 Dose: 650 mg Apixaban (Eliquis -) 2.5 mg PO BID [facility] Last Admin: 06/21/17 10:43 Dose: 2.5 mg Diltiazem HCl (Cardizem Cd -) 180 mg PO DAILY [facility] Last Admin: 06/21/17 10:44 Dose: 180 mg Docusate Sodium (Colace -) 100 mg PO TID [facility] Last Admin: 06/21/17 14:40 Dose: 100 mg Escitalopram Oxalate (Lexapro -) 10 mg PO DAILY [facility] Last Admin: 06/21/17 10:43 Dose: 10 mg Furosemide (Lasix Injection -) 40 mg IVPUSH BID@0600,1400 [facility] Last Admin: 06/21/17 14:36 Dose: 40 mg Insulin Aspart (Novolog Vial Sliding Scale -) 1 vial SQ ACHS [facility] PRN Reason: Protocol Last Admin: 06/21/17 11:52 Dose: Not Given Lorazepam (Ativan Injection -) 0.5 mg IVPUSH Q6H PRN PRN Reason: ANXIETY Last Admin: 06/21/17 11:52 Dose: 0.5 mg Prednisone (Deltasone -) 5 mg PO DAILY [facility] Last Admin: 06/21/17 10:43 Dose: 5 mg Quetiapine Fumarate (Seroquel -) 25 mg PO HS [facility] Last Admin: 06/20/17 22:15 Dose: 25 mg Ranitidine HCl (Zantac -) 300 mg PO DAILY@1800 [facility] Last Admin: 06/20/17 17:10 Dose: Not Given Tiotropium [place] (Spiriva -) 1 puff IH DAILY [facility] Last Admin: 06/21/17 10:44 Dose: 1 pfu - Objective Vital Signs: Vital Signs Temperature 98.2 F 06/21/17 09:00 Pulse Rate 90 06/21/17 09:00 Respiratory Rate 20 06/21/17 09:00 Blood Pressure 136/76 06/21/17 09:00 O2 Sat by Pulse Oximetry (%) 95 06/21/17 09:00 Constitutional: Yes: Calm Eyes: Yes: Conjunctiva Clear HENT: Yes: Atraumatic Neck: Yes: Supple Cardiovascular: Yes: S1, S2 Respiratory: Yes: On Nasal O2 Gastrointestinal: Yes: Soft Genitourinary: Yes: WNL Musculoskeletal: Yes: WNL Edema: Yes Edema: LLE: 1+, RLE: 1+ Neurological: Yes: Oriented Psychiatric: Yes: Oriented Labs: CBC, BMP 06/21/17 05:45 06/21/17 05:45 INR, PTT INR 0.89 (0.82-1.09) 06/12/17 11:15 Problem List - Problems (1) Abdominal aortic aneurysm (AAA) Code(s): I71.4 - ABDOMINAL AORTIC ANEURYSM, WITHOUT RUPTURE Qualifiers: Presence of rupture: without rupture Qualified Code(s): I71.4 - Abdominal aortic aneurysm, without rupture (2) Stool guaiac positive Code(s): R19.5 - OTHER FECAL ABNORMALITIES (3) Atrial fibrillation Code(s): I48.91 - UNSPECIFIED ATRIAL FIBRILLATION Qualifiers: Atrial fibrillation type: persistent Qualified Code(s): I48.1 - Persistent atrial fibrillation (4) COPD (chronic obstructive pulmonary disease) Code(s): J44.9 - CHRONIC OBSTRUCTIVE PULMONARY DISEASE, UNSPECIFIED Qualifiers: Emphysema type: centrilobular (5) Chronic renal disease Code(s): N18.9 - CHRONIC KIDNEY DISEASE, UNSPECIFIED Qualifiers: Chronic kidney disease stage: stage 4 (severe) Qualified Code(s): N18.4 - Chronic kidney disease, stage 4 (severe) (6) Pneumothorax Code(s): J93.9 - PNEUMOTHORAX, UNSPECIFIED Qualifiers: Pneumothorax type: postprocedural Qualified Code(s): J95.811 - Postprocedural pneumothorax (7) Tobacco use Code(s): Z72.0 - TOBACCO USE Assessment/Plan Current Medications Generic Name Dose Route Start Last Admin Trade Name Freq PRN Reason Stop Dose Admin Acetaminophen 650 mg 06/02/17 19:24 06/10/17 23:15 Tylenol - PO 650 mg Q6H PRN Administration FEVER OR PAIN Apixaban 2.5 mg 06/14/17 11:00 06/21/17 10:43 Eliquis - PO 2.5 mg BID [facility] Administration Diltiazem HCl 180 mg 06/03/17 10:00 06/21/17 10:44 Cardizem Cd - PO 180 mg DAILY [facility] Administration Docusate Sodium 100 mg 06/02/17 22:00 06/21/17 14:40 Colace - PO 100 mg TID [facility] Administration Escitalopram Oxalate 10 mg 06/17/17 11:45 06/21/17 10:43 Lexapro - PO 10 mg DAILY [facility] Administration Furosemide 40 mg 06/19/17 14:00 06/21/17 14:36 Lasix Injection - IVPUSH 40 mg BID@0600,1400 [facility] Administration Insulin Aspart 1 vial 06/10/17 16:30 06/21/17 11:52 Novolog Vial Sliding Scale - SQ Not Given ACHS [facility] Protocol Lorazepam 0.5 mg 06/16/17 02:04 06/21/17 11:52 Ativan Injection - IVPUSH 0.5 mg Q6H PRN Administration ANXIETY Prednisone 5 mg 06/20/17 10:00 06/21/17 10:43 Deltasone - PO 5 mg DAILY [facility] Administration Quetiapine Fumarate 25 mg 06/13/17 22:00 06/20/17 22:15 Seroquel - PO 25 mg HS [facility] Administration Ranitidine HCl 300 mg 06/03/17 18:30 06/20/17 17:10 Zantac - PO Not Given DAILY@1800 [facility] Tiotropium [place] 1 puff 06/03/17 10:00 06/21/17 10:44 Spiriva - IH 1 pfu DAILY [facility] Administration Laboratory Tests 06/19/17 05:48 Magnesium 3.4 H 1. CKD with acute component 2. AAA 3. lung cancer 4. HTN 5. a-fib 6. chol 7. hx hydropneumothorax 8. GI bleed 9. sepsis 10. leukocytosis 11. COLE 12. abdominal pain 13. hypoxia/erpiratory failure requiring bipap 14. hypermagnesemia requiring HD for removal Plan - cont with lasix - real function is stabilizing - repeat labs in am - check mag level - avoid mag laxitives and bowel preps - monitor pulse ox - cont bipap as needed - monitor BP - will follow Dr Shearer
[2017-06-21] MEDS: ACETAMINOPHEN 325 MG TABLET (FP) PO PRN (17:00)
[2017-06-21] MEDS: RANITIDINE HCL 150 MG TABLET (FP) PO SCH (17:15)
--- NOTE | 2017-06-21 18:04 | PN ---
Progress Note, Physician Chief Complaint: ASLEEP NAD - Current Medication List Current Medications: Active Medications Acetaminophen (Tylenol -) 650 mg PO Q6H PRN PRN Reason: FEVER OR PAIN Last Admin: 06/21/17 17:00 Dose: 650 mg Apixaban (Eliquis -) 2.5 mg PO BID [facility] Last Admin: 06/21/17 10:43 Dose: 2.5 mg Diltiazem HCl (Cardizem Cd -) 180 mg PO DAILY [facility] Last Admin: 06/21/17 10:44 Dose: 180 mg Docusate Sodium (Colace -) 100 mg PO TID [facility] Last Admin: 06/21/17 14:40 Dose: 100 mg Escitalopram Oxalate (Lexapro -) 10 mg PO DAILY [facility] Last Admin: 06/21/17 10:43 Dose: 10 mg Furosemide (Lasix Injection -) 40 mg IVPUSH BID@0600,1400 [facility] Last Admin: 06/21/17 14:36 Dose: 40 mg Insulin Aspart (Novolog Vial Sliding Scale -) 1 vial SQ ACHS [facility] PRN Reason: Protocol Last Admin: 06/21/17 17:16 Dose: Not Given Lorazepam (Ativan Injection -) 0.5 mg IVPUSH Q6H PRN PRN Reason: ANXIETY Last Admin: 06/21/17 11:52 Dose: 0.5 mg Prednisone (Deltasone -) 5 mg PO DAILY [facility] Last Admin: 06/21/17 10:43 Dose: 5 mg Quetiapine Fumarate (Seroquel -) 25 mg PO HS [facility] Last Admin: 06/20/17 22:15 Dose: 25 mg Ranitidine HCl (Zantac -) 300 mg PO DAILY@1800 [facility] Last Admin: 06/21/17 17:15 Dose: 300 mg Tiotropium [place] (Spiriva -) 1 puff IH DAILY [facility] Last Admin: 06/21/17 10:44 Dose: 1 pfu - Objective Vital Signs: Vital Signs Temperature 98.4 F 06/21/17 14:00 Pulse Rate 90 06/21/17 14:00 Respiratory Rate 20 06/21/17 14:00 Blood Pressure 127/64 06/21/17 14:00 O2 Sat by Pulse Oximetry (%) 96 06/21/17 09:55 Constitutional: Yes: Mild Distress Eyes: Yes: WNL HENT: Yes: WNL Neck: Yes: WNL Cardiovascular: Yes: Pulse Irregular Respiratory: Yes: On Nasal O2, Poor Air Entry Gastrointestinal: Yes: WNL Genitourinary: Yes: WNL Musculoskeletal: Yes: Muscle Weakness Extremities: Yes: WNL Edema: Yes Peripheral Pulses WNL: Yes Integumentary: Yes: WNL Wound/Incision: Yes: Clean/Dry Neurological: Yes: Pre-Existing Deficit ...Motor Strength: LLE, RLE Psychiatric: Yes: WNL Labs: CBC, BMP 06/21/17 05:45 06/21/17 05:45 INR, PTT INR 0.89 (0.82-1.09) 06/12/17 11:15 Problem List - Problems (1) Melena Code(s): K92.1 - MELENA (2) Stool guaiac positive Code(s): R19.5 - OTHER FECAL ABNORMALITIES (3) Abdominal aneurysm Code(s): I71.4 - ABDOMINAL AORTIC ANEURYSM, WITHOUT RUPTURE (4) Atrial fibrillation Code(s): I48.91 - UNSPECIFIED ATRIAL FIBRILLATION Qualifiers: Atrial fibrillation type: persistent Qualified Code(s): I48.1 - Persistent atrial fibrillation (5) COPD (chronic obstructive pulmonary disease) Code(s): J44.9 - CHRONIC OBSTRUCTIVE PULMONARY DISEASE, UNSPECIFIED Qualifiers: Emphysema type: centrilobular (6) Chronic renal disease Code(s): N18.9 - CHRONIC KIDNEY DISEASE, UNSPECIFIED Qualifiers: Chronic kidney disease stage: stage 4 (severe) Qualified Code(s): N18.4 - Chronic kidney disease, stage 4 (severe) (7) Constipation Code(s): K59.00 - CONSTIPATION, UNSPECIFIED (8) Lung malignancy Code(s): C34.90 - MALIGNANT NEOPLASM OF UNSP PART OF UNSP BRONCHUS OR LUNG Qualifiers: Laterality: left Assessment/Plan CANCEL THORACENTESIS FOR WEDNESDAY RESTART ELIQUIS LASIX BID LIKELY WILL NEED HD PER RENAL PT DISCHARGE WEDNESDAY IF CLEARED BY NEPHROLOGY AND PULMONARY
[2017-06-21] MEDS: QUEtiapine FUMARATE 25 MG TABLET (FP) PO SCH (21:36)
[2017-06-22] MEDS: DOCUSATE SODIUM 100 MG CAPSULE (FP) PO SCH ×2 (05:28→13:30)
[2017-06-22] MEDS: FUROSEMIDE 40 MG/4 ML INJECTABLE VIAL IVPUSH SCH ×2 (05:28→13:30)
[2017-06-22] MEDS: INSULIN SLIDING SCALE (NOVOLOG) 1 VIAL SQ SCH ×2 (06:09→13:30)
[2017-06-22 06:58] LABS: HEMATOCRIT 25.8 % (32.4-45.2); HEMOGLOBIN 8.5 GM/dL (10.7-15.3); MCH 30.6 pg (25.7-33.7); MCHC 32.9 g/dl (32.0-36.0); MEAN CELL VOLUME 92.9 fl (80-96); MEAN PLT VOLUME 9.1 fl (7.5-11.1); PLATELET COUNT 143 K/MM3 (134-434); RBC 2.78 M/mm3 (3.60-5.2); RDW 15.8 % (11.6-15.6); WHITE BLOOD COUNT 11.2 K/mm3 (4.0-10.0)
[2017-06-22 07:23] LABS: CHLORIDE 104 mmol/L (98-107); POTASSIUM 4.4 mmol/L (3.5-5.1); SODIUM 143 mmol/L (136-145)
[2017-06-22 07:31] LABS: ALBUMIN 2.1 g/dl (3.4-5.0); ALK PHOS 88 U/L (45-117); ANION GAP 10 (8-16); BILIRUBIN,TOTAL 0.3 mg/dL (0.2-1.0); BLOOD UREA NITROGEN 67 mg/dL (7-18); CALCIUM 8.3 mg/dL (8.5-10.1); CO2 29 mmol/L (21-32); CREATININE 2.8 mg/dL (0.55-1.02); GLUCOSE,RANDOM 112 mg/dL (74-106); MAGNESIUM 2.7 mg/dL (1.8-2.4); SGOT/AST 26 U/L (15-37); SGPT/ALT 35 U/L (12-78)
--- NOTE | 2017-06-22 08:22 | DS ---
Physical Examination Vital Signs: Vital Signs Temperature 98.3 F 06/22/17 05:00 Pulse Rate 91 H 06/22/17 05:00 Respiratory Rate 20 06/22/17 05:00 Blood Pressure 129/77 06/22/17 05:00 O2 Sat by Pulse Oximetry (%) 98 06/21/17 21:00 Constitutional: Yes: Mild Distress Eyes: Yes: WNL HENT: Yes: WNL Neck: Yes: WNL Cardiovascular: Yes: Pulse Irregular Respiratory: Yes: On Nasal O2, Poor Air Entry Gastrointestinal: Yes: WNL Musculoskeletal: Yes: Muscle Weakness Extremities: Yes: WNL Edema: Yes Peripheral Pulses WNL: Yes Integumentary: Yes: WNL Wound/Incision: Yes: Clean/Dry Neurological: Yes: Unsteady Gait ...Motor Strength: LLE, RLE Psychiatric: Yes: Agitated, Other Labs: CBC, BMP 06/22/17 06:40 06/22/17 06:40 Discharge Summary Reason For Visit: OCCULT BLOOD IN STOOL,MELENA Current Active Problems Abdominal aortic aneurysm (AAA) (Acute) Abdominal pain (Acute) CHF (congestive heart failure) (Acute) COPD exacerbation (Acute) Aby esophagitis (Acute) Colitis (Acute) History of endovascular stent graft for abdominal aortic aneurysm (AAA) (Acute) Melena (Acute) Pneumonia (Acute) Preop cardiovascular exam (Acute) S/P lobectomy of lung (Acute) Sepsis (Acute) Stool guaiac positive (Acute) Procedures: Principal: aneurysm repair Hospital Course: admitted with muliple medical problems, AAA repair, ESRD hd given then stopped , will likely need HD soon. Anemia, constipation, htn, afib, pleural effusions, adeno CA of lungs, left lobeectomy feb 2017. will need aggressive PT and check cbc,cmp every 3 days. Condition: Stable - Instructions Diet, Activity, Other Instructions: Keep incisions clean and dry. No baths. Follow-up with Dr. Qureshi next week Aggressive Physical Therapy ESRD may need HD will need renal F/U cbc and cmp q 3dys daily weights incentive spirometry Referrals: Josef Qureshi MD [Staff Physician] - Kanchan Truong MD [Primary Care Provider] - [facility]position[facility] - Home Medications Comprehensive Discharge Medication List: Ambulatory Orders Lorazepam [Ativan] 0.5 mg PO HS 03/07/17 Acetaminophen [Tylenol .Regular Strength -] 650 mg PO Q4H PRN #0 tablet Budesonide/Formeterol Fumarate [SYMBICORT 160/4.5mcg -] 2 puff IH BID #1 inhaler 03/15/17 Diltiazem Cd [Cardizem Cd -] 180 mg PO DAILY #30 cap 03/15/17 Prednisone [Deltasone -] 40 mg PO DAILY #10 tablet 03/15/17 Apixaban [Eliquis] 2.5 mg PO HS 04/28/17
[2017-06-22] MEDS: predniSONE 5 MG TABLET (UD) PO SCH (10:56)
[2017-06-22] MEDS: ESCITALOPRAM OXALATE 10 MG TABLET (FP) PO SCH (10:56)
[2017-06-22] MEDS: TIOTROPIUM BROMIDE 18 MCG/INH (DEVICE W/ 5 CAPSULES) IH SCH (10:56)
[2017-06-22] MEDS: APIXABAN 2.5 MG TABLET PO SCH (11:05)
[2017-06-22 11:18] VITALS: TEMP 98.4
[2017-06-22] MEDS: ACETAMINOPHEN 325 MG TABLET (FP) PO PRN (13:36)
--- NOTE | 2017-06-22 14:13 | PN ---
Progress Note, Physician History of Present Illness: Pt seen and examined at bedside. She is awake and alert. She feels that her lower extremity edema is improving. - Current Medication List Current Medications: Active Medications Acetaminophen (Tylenol -) 650 mg PO Q6H PRN PRN Reason: FEVER OR PAIN Last Admin: 06/22/17 13:36 Dose: 650 mg Apixaban (Eliquis -) 2.5 mg PO BID [facility] Last Admin: 06/22/17 11:05 Dose: 2.5 mg Diltiazem HCl (Cardizem Cd -) 180 mg PO DAILY [facility] Last Admin: 06/22/17 10:56 Dose: 180 mg Docusate Sodium (Colace -) 100 mg PO TID [facility] Last Admin: 06/22/17 13:30 Dose: 100 mg Escitalopram Oxalate (Lexapro -) 10 mg PO DAILY [facility] Last Admin: 06/22/17 10:56 Dose: 10 mg Furosemide (Lasix Injection -) 40 mg IVPUSH BID@0600,1400 [facility] Last Admin: 06/22/17 13:30 Dose: 40 mg Insulin Aspart (Novolog Vial Sliding Scale -) 1 vial SQ ACHS [facility] PRN Reason: Protocol Last Admin: 06/22/17 13:30 Dose: Not Given Lorazepam (Ativan Injection -) 0.5 mg IVPUSH Q6H PRN PRN Reason: ANXIETY Last Admin: 06/21/17 11:52 Dose: 0.5 mg Prednisone (Deltasone -) 5 mg PO DAILY [facility] Last Admin: 06/22/17 10:56 Dose: 5 mg Quetiapine Fumarate (Seroquel -) 25 mg PO HS [facility] Last Admin: 06/21/17 21:36 Dose: 25 mg Ranitidine HCl (Zantac -) 300 mg PO DAILY@1800 [facility] Last Admin: 06/21/17 17:15 Dose: 300 mg Tiotropium [place] (Spiriva -) 1 puff IH DAILY [facility] Last Admin: 06/22/17 10:56 Dose: 1 pfu - Objective Vital Signs: Vital Signs Temperature 98.4 F 06/22/17 09:00 Pulse Rate 88 06/22/17 09:00 Respiratory Rate 22 06/22/17 09:00 Blood Pressure 147/70 06/22/17 09:00 O2 Sat by Pulse Oximetry (%) 99 06/22/17 09:00 Constitutional: Yes: Calm Eyes: Yes: Conjunctiva Clear HENT: Yes: Atraumatic Neck: Yes: Supple Cardiovascular: Yes: S1, S2 Respiratory: Yes: On Nasal O2 Gastrointestinal: Yes: Normal Bowel Sounds, Soft Musculoskeletal: Yes: Muscle Weakness Edema: Yes Edema: LLE: 1+, RLE: 1+ Neurological: Yes: Oriented Psychiatric: Yes: Oriented Labs: CBC, BMP 06/22/17 06:40 06/22/17 06:40 INR, PTT INR 0.89 (0.82-1.09) 06/12/17 11:15 Problem List - Problems (1) Abdominal aortic aneurysm (AAA) Code(s): I71.4 - ABDOMINAL AORTIC ANEURYSM, WITHOUT RUPTURE Qualifiers: Presence of rupture: without rupture Qualified Code(s): I71.4 - Abdominal aortic aneurysm, without rupture (2) Stool guaiac positive Code(s): R19.5 - OTHER FECAL ABNORMALITIES (3) Atrial fibrillation Code(s): I48.91 - UNSPECIFIED ATRIAL FIBRILLATION Qualifiers: Atrial fibrillation type: persistent Qualified Code(s): I48.1 - Persistent atrial fibrillation (4) COPD (chronic obstructive pulmonary disease) Code(s): J44.9 - CHRONIC OBSTRUCTIVE PULMONARY DISEASE, UNSPECIFIED Qualifiers: Emphysema type: centrilobular (5) Chronic renal disease Code(s): N18.9 - CHRONIC KIDNEY DISEASE, UNSPECIFIED Qualifiers: Chronic kidney disease stage: stage 4 (severe) Qualified Code(s): N18.4 - Chronic kidney disease, stage 4 (severe) (6) Pneumothorax Code(s): J93.9 - PNEUMOTHORAX, UNSPECIFIED Qualifiers: Pneumothorax type: postprocedural Qualified Code(s): J95.811 - Postprocedural pneumothorax (7) Tobacco use Code(s): Z72.0 - TOBACCO USE Assessment/Plan Current Medications Generic Name Dose Route Start Last Admin Trade Name Freq PRN Reason Stop Dose Admin Acetaminophen 650 mg 06/02/17 19:24 06/22/17 13:36 Tylenol - PO 650 mg Q6H PRN Administration FEVER OR PAIN Apixaban 2.5 mg 06/14/17 11:00 06/22/17 11:05 Eliquis - PO 2.5 mg BID ANNA Administration Diltiazem HCl 180 mg 06/03/17 10:00 06/22/17 10:56 Cardizem Cd - PO 180 mg DAILY ANNA Administration Docusate Sodium 100 mg 06/02/17 22:00 06/22/17 13:30 Colace - PO 100 mg TID ANNA Administration Escitalopram Oxalate 10 mg 06/17/17 11:45 06/22/17 10:56 Lexapro - PO 10 mg DAILY ANNA Administration Furosemide 40 mg 06/19/17 14:00 06/22/17 13:30 Lasix Injection - IVPUSH 40 mg BID@0600,1400 ANNA Administration Insulin Aspart 1 vial 06/10/17 16:30 06/22/17 13:30 Novolog Vial Sliding Scale - SQ Not Given ACHS [facility] Protocol Lorazepam 0.5 mg 06/16/17 02:04 06/21/17 11:52 Ativan Injection - IVPUSH 0.5 mg Q6H PRN Administration ANXIETY Prednisone 5 mg 06/20/17 10:00 06/22/17 10:56 Deltasone - PO 5 mg DAILY ANNA Administration Quetiapine Fumarate 25 mg 06/13/17 22:00 06/21/17 21:36 Seroquel - PO 25 mg HS ANNA Administration Ranitidine HCl 300 mg 06/03/17 18:30 06/21/17 17:15 Zantac - PO 300 mg DAILY@1800 ANNA Administration Tiotropium [place] 1 puff 06/03/17 10:00 06/22/17 10:56 Spiriva - IH 1 pfu DAILY ANNA Administration Laboratory Tests 06/22/17 06:40 Creatinine 2.8 H Magnesium 2.7 H D 1. CKD with acute component 2. AAA 3. lung cancer 4. HTN 5. a-fib 6. chol 7. hx hydropneumothorax 8. GI bleed 9. sepsis 10. leukocytosis 11. COLE 12. abdominal pain 13. hypoxia/erpiratory failure requiring bipap 14. hypermagnesemia requiring HD for removal Plan - cont lasix - will need to monitor renal function - avoid all magnesium containing bowel regimens and antacids - monitor pulse ox - cont bipap as needed - monitor BP - will follow Dr Shearer
[2017-06-22 16:17] VITALS: BP 127/60; PULSE 87
== END 2017-06-22 18:14 | DRG 268 ==
LOC: JER 11:36 → JERBED 15:23 → J7W 18:10 → JSAMEDAYSX 06-02 16:39 → JICU 06-02 19:40 → J4W 06-03 15:30 → JICU 06-12 09:19 → J4W 06-14 18:57
PROVIDERS: ADMIT Family Medicine; ATTEND Family Medicine
PROC: 04V03DZ Restriction of Abdominal Aorta with Intraluminal Device, Percutaneous Approach (ICD-10-PCS; principal; 2017-06-02 12:00)
PROC: 0DD68ZX Extraction of Stomach, Via Natural or Artificial Opening Endoscopic, Diagnostic (ICD-10-PCS; 2017-06-09)
PROC: 5A09557 Assistance with Respiratory Ventilation, Greater than 96 Consecutive Hours, Continuous Positive Airway Pressure (ICD-10-PCS; 2017-06-10)
PROC: 05HM33Z Insertion of Infusion Device into Right Internal Jugular Vein, Percutaneous Approach (ICD-10-PCS; 2017-06-13)
PROC: 5A1D70Z Performance of Urinary Filtration, Intermittent, Less than 6 Hours Per Day (ICD-10-PCS; 2017-06-13)
DX: I71.4 Abdominal aortic aneurysm, without rupture (principal); J18.9 Pneumonia, unspecified organism; J96.01 Acute respiratory failure with hypoxia; N18.4 Chronic kidney disease, stage 4 (severe); K92.2 Gastrointestinal hemorrhage, unspecified; C34.32 Malignant neoplasm of lower lobe, left bronchus or lung; I48.1 Persistent atrial fibrillation; J44.1 Chronic obstructive pulmonary disease with (acute) exacerbation; N17.9 Acute kidney failure, unspecified; J90 Pleural effusion, not elsewhere classified; B37.81 Candidal esophagitis; J95.89 Other postprocedural complications and disorders of respiratory system, not elsewhere classified; J98.11 Atelectasis; K55.9 Vascular disorder of intestine, unspecified; J95.811 Postprocedural pneumothorax; I12.9 Hypertensive chronic kidney disease with stage 1 through stage 4 chronic kidney disease, or unspecified chronic kidney disease; E83.41 Hypermagnesemia; D50.0 Iron deficiency anemia secondary to blood loss (chronic); R73.9 Hyperglycemia, unspecified; T38.0X5A Adverse effect of glucocorticoids and synthetic analogues, initial encounter; E87.70 Fluid overload, unspecified; I95.81 Postprocedural hypotension; I27.20 Pulmonary hypertension, unspecified; I34.0 Nonrheumatic mitral (valve) insufficiency; Z90.2 Acquired absence of lung [part of]; Z79.01 Long term (current) use of anticoagulants; K57.90 Diverticulosis of intestine, part unspecified, without perforation or abscess without bleeding; K21.9 Gastro-esophageal reflux disease without esophagitis; K59.00 Constipation, unspecified; R63.4 Abnormal weight loss; Z68.24 Body mass index [BMI] 24.0-24.9, adult; Z87.11 Personal history of peptic ulcer disease; F41.9 Anxiety disorder, unspecified; F17.210 Nicotine dependence, cigarettes, uncomplicated; M25.552 Pain in left hip; M25.551 Pain in right hip; D72.829 Elevated white blood cell count, unspecified; R05 Cough; D64.9 Anemia, unspecified; Y83.8 Other surgical procedures as the cause of abnormal reaction of the patient, or of later complication, without mention of misadventure at the time of the procedure
CPT/HCPCS: 36415; 36600; 71010-TC; 71020-TC; 71250-TC; 74020-TC; 74176-TC; 76000-TC; 80048; 80053; 80076; 82272; 82550; 82728; 82803; 83036; 83540; 83550; 83605; 83690; 83735; 83880; 84100; 84484; 85025; 85027; 85379; 85610; 85730; 86140; 86704; 86706; 86708; 86803; 86850; 86900; 86901; 86922; 87040; 87324; 87340; 87449; 87493; 88302-TC; 88305-TC; 93005; 93010; 93306-TC; 94010; 94640; 94660; 94760; 97161-GP; 97164-GP; 99285-25; G0480; J1644